=== PATIENT | male | born 1935 | race African-American/Black ===

== ENCOUNTER 2019-11-21 02:51 | Inpatient (IN) | payer MEDICARE, OTHER ==
[~2019-11-21] VITALS: Ht 177.8 cm; Wt 107.5 kg
[2019-11-21] VITALS (18 sets, daily range): BP systolic 95–146; BP diastolic 69–101
[2019-11-21] MEDS ORDERED: LEVOFLOXACIN IVPB ONE (03:00)
[2019-11-21] MEDS ORDERED: cefTRIAXone 1gm/D5W 55ml IVPB ONE ×2 (03:00)
[2019-11-21] MEDS ORDERED: D5W IVPB ONE (03:00)
[2019-11-21] MEDS ORDERED: Vancomycin 1gm vial IVPB ONE (03:07)
[2019-11-21] MEDS ORDERED: Albuterol/Ipratropium 3ml neb ONE ×2 (03:07→05:06)
[2019-11-21] MEDS ORDERED: Albuterol/Ipratropium 3ml neb HHN ONE ×2 (03:07→05:00)
[2019-11-21] MEDS ORDERED: Lidocaine 2% 100mg/5ml Carp ONE (04:18)
[2019-11-21] MEDS ORDERED: Lidocaine 2% 100mg/5ml Carp INJ ONE (04:18)
--- NOTE | 2019-11-21 05:14 | Emergency Room Report ---
History of Present Illness General Source: EMS Present Illness HPI Patient presents with altered mentation. Apparently his oxygen saturation was in the 80s prior to paramedics and starting oxygen. Usually the patient is more responsive. Initially found blood pressure 130 and then the patient had atrial fibrillation with a history of this and the blood pressure apparently dropped. Patient is somewhat tachypneic. Accu-Chek 124. Paramedics do not know what the CODE STATUS is. History of atrial fibrillation. History of dementia. Allergies: Coded Allergies: LISINOPRIL (Verified Allergy, Unknown, 11/21/19) SIMVASTATIN (Verified Allergy, Unknown, 11/21/19) TERAZOSIN (Verified Allergy, Unknown, 11/21/19) Patient History Limited by: medical condition Past Medical History: see triage record Social History Narrative [facility] Reviewed Nursing Documentation: PMH: Agreed; PSxH: Agreed Review of Systems All Other Systems: limited Physical Exam Hypoxic, BP not hypotensive, tachycardia Sp02 EP Interpretation: reviewed, abnormal - Interpreted as low by me General Appearance: lethargic, Chronically Ill Head: normocephalic, atraumatic Eyes: bilateral eye normal inspection, bilateral eye PERRL ENT: moist mucus membranes - Poor dentition Neck: other - Flaccid Respiratory: respiratory distress - Mild, decreased breath sounds, crackles, wheezing Cardiovascular #1: tachycardia, irregularly irregular, edema - Lower extremities Cardiovascular #2: 2+ radial (L) Gastrointestinal: non tender, decreased bowel sounds Genitourinary: other - Patiño present Musculoskeletal: decreased range of motion Neurologic: DTRs symmetric, responsive - Minimally, other - Not speaking Psychiatric: other - Stupor Skin: warm/dry Procedures Critical Care Time Critical Care Time Total Critical Care Time: 60 min bedside evaluation and treatment excludes procedures (EKG, endotracheal intubation). Reason for critical care: Sepsis, respiratory failure, repeat evaluations, sedation Possible complications: hypotension, hypertension, WA, shock, arrhythmias, metabolic acidosis, end organ damage, respiratory failure. Interventions: Breathing treatments, fluid bolus, sepsis treatment, repeat evaluations, determination level of care Course: Patient presented with hypoxia and altered mental status. Immediate sepsis resuscitation and antibiotic orders. X-ray reveals left-sided pneumonia. Breathing treatments instituted. Due to altered mentation BiPAP unavailable. Sepsis reevaluation with improvement however respiratory failure indicated intubation. Discussion with patient level of care. Repeat evaluations of level of sedation. Vital signs improved. Repeat blood gas evaluated. Consultations: nursing staff, EMS, respiratory therapy, admitting physician Performed by: Dr. Guy Tolerated well condition = critical Intubation Intubation : Consent: Verbal - and emergent Intubation Method: orotracheal Tube Size (cm): 7.5 Medications: Etomidate Breath Sounds after Intubation: equal Post Intubation Xray: Yes Attempts: One Patient Tolerated: Well Complications: Other - patient bit lower lip Progress After MAC blade removed, ET tube was being directed and patient bit down on his lip. Medical Decision Making Diagnostic Impression: Primary Impression: Sepsis Qualified Codes: A41.9 - Sepsis, unspecified organism; R65.20 - Severe sepsis without septic shock Additional Impressions: Respiratory failure Qualified Codes: J96.01 - Acute respiratory failure with hypoxia; J96.02 - Acute respiratory failure with hypercapnia Pneumonia Qualified Codes: J18.9 - Pneumonia, unspecified organism Urinary tract infection Qualified Codes: T83.511A - Infection and inflammatory reaction due to indwelling urethral catheter, initial encounter; N39.0 - Urinary tract infection , site not specified Renal failure Qualified Codes: N19 - Unspecified kidney failure ER Course Patient presents with hypoxia and altered level of consciousness. Differential includes pneumonia, sepsis, acute myocardial infarction, electrolyte imbalance amongst others. Evaluation with EKG, chest x-ray and labs. Immediate 30 ml/kg bolus. Patient placed on a hall monitor. EKG with rapid atrial fibrillation and no acute injury rate 108. X-ray with left-sided infiltrate and bilateral effusions. Blood count elevated with left shift. Renal insufficiency. Potassium 6.1. Urinalysis with pyuria. Antibiotics ordered based on urine and CXR. Cap fill good. Still altered ( sepsis re-evaluation). Patient with altered mentation. Improved somewhat with breathing treatment. Unable to treat with BiPAP because of altered mentation. Blood gas reveals mixed acidosis with hypoxia. Intubation indicated. Patient somewhat more responsive. Agrees with intubation. Intubated. Initial lactic acid elevated. Continued hydration. Less work with breathing. Sedated and dose of propofol adjusted. Vent titrated down. ABG on vent improved. Clinically patient improved and admitted to ICU. Laboratory Tests Test 11/21/19 03:40 11/21/19 04:50 11/21/19 07:00 11/21/19 10:00 Arterial Blood pH 7.155 (7.350-7.450) 7.307 (7.350-7.450) 7.388 (7.350-7.450) Arterial Blood Partial Pressure CO2 62.8 mmHg (35.0-45.0) *H 46.5 mmHg (35.0-45.0) H 38.1 mmHg (35.0-45.0) Arterial Blood Partial Pressure O2 62.6 mmHg (75.0-100.0) L 55.0 mmHg (75.0-100.0) L 72.5 mmHg (75.0-100.0) L Arterial Blood HCO3 21.6 mmol/L (22.0-26.0) L 22.7 mmol/L (22.0-26.0) 22.4 mmol/L (22.0-26.0) Arterial Blood Oxygen Saturation 87.0 % (95-100) *L 87.7 % (95-100) *L 93.8 % (95-100) L Arterial Blood Base Excess -7.4 (-2-2) L -3.5 (-2-2) L -2.3 (-2-2) L Shade Test Positive Positive Positive Sodium Level 143 MMOL/L (136-145) Potassium Level 6.1 MMOL/L (3.5-5.1) *H Chloride Level 103 MMOL/L (98-107) Carbon Dioxide Level 21 MMOL/L (21-32) Anion Gap 19 mmol/L (5-15) H Blood Urea Nitrogen 87 mg/dL (7-18) H Creatinine 6.7 MG/DL (0.55-1.30) H Estimated Glomerular Filtration Rate 9.6 mL/min (>60) Glucose Level 128 MG/DL (74-106) H Lactic Acid Level 4.50 mmol/L (0.66-2.22) H Uric Acid 11.6 MG/DL (2.6-7.2) H Calcium Level 9.2 MG/DL (8.5-10.1) Total Bilirubin 0.4 MG/DL (0.2-1.0) Aspartate Amino Transferase (AST) 50 U/L (15-37) H Alanine Aminotransferase (ALT) 26 U/L (12-78) Alkaline Phosphatase 60 U/L (46-116) Total Creatine Kinase 186 U/L (26-308) Troponin I 0.026 ng/mL (0.000-0.056) Pro-B-Type Natriuretic Peptide > 09433 pg/mL (0-125) H Total Protein 8.7 G/DL (6.4-8.2) H Albumin 3.1 G/DL (3.4-5.0) L Globulin 5.6 g/dL Albumin/Globulin Ratio 0.6 (1.0-2.7) L White Blood Count 11.1 K/UL (4.8-10.8) H Red Blood Count 3.67 M/UL (4.70-6.10) L Hemoglobin 10.7 G/DL (14.2-18.0) L Hematocrit 34.0 % (42.0-52.0) L Mean Corpuscular Volume 93 FL (80-99) Mean Corpuscular Hemoglobin 29.2 PG (27.0-31.0) Mean Corpuscular Hemoglobin Concent 32.0 G/DL (32.0-36.0) Red Cell Distribution Width 17.8 % (11.6-14.8) H Platelet Count 346 K/UL (150-450) Mean Platelet Volume FL (6.5-10.1) Neutrophils (%) (Auto) % (45.0-75.0) Lymphocytes (%) (Auto) % (20.0-45.0) Monocytes (%) (Auto) % (1.0-10.0) Eosinophils (%) (Auto) % (0.0-3.0) Basophils (%) (Auto) % (0.0-2.0) Differential Total Cells Counted 100 Neutrophils % (Manual) 85 % (45-75) H Lymphocytes % (Manual) 10 % (20-45) L Monocytes % (Manual) 4 % (1-10) Eosinophils % (Manual) 1 % (0-3) Basophils % (Manual) 0 % (0-2) Band Neutrophils 0 % (0-8) Platelet Estimate Adequate Platelet Morphology Normal Hypochromasia 1+ Anisocytosis 1+ Test 11/21/19 17:10 11/21/19 20:40 Urine Color Pale yellow Urine Appearance Slightly cloudy Urine pH 6 (4.5-8.0) Urine Specific [place] 1.010 (1.005-1.035) Urine Protein 3+ (NEGATIVE) H Urine Glucose (UA) Negative (NEGATIVE) Urine Ketones Negative (NEGATIVE) Urine Blood 4+ (NEGATIVE) H Urine Nitrite Negative (NEGATIVE) Urine Bilirubin Negative (NEGATIVE) Urine Urobilinogen Normal MG/DL (0.0-1.0) Urine Leukocyte Esterase 3+ (NEGATIVE) H Urine RBC 5-10 /HPF (0 - 0) H Urine WBC 20-30 /HPF (0 - 0) H Urine Squamous Epithelial Cells None /LPF (NONE/OCC) Urine Bacteria Moderate /HPF (NONE) H Urine Random Sodium 55 mmol/L (20-110) Lactic Acid Level 0.90 mmol/L (0.4-2.0) EKG Diagnostic Results Rate: tachycardiac Rhythm: other - Atrial fibrillation ST Segments: no acute changes - Nonspecific ST-T wave changes Rhythm Strip Diag. Results EP Interpretation: yes Rhythm: NSR, no PVC's, no ectopy Chest X-Ray Diagnostic Results Chest X-Ray Diagnostic Results #1: Chest X-Ray Ordered: Yes # of Views/Limited/Complete: 1 View Indication: Shortness of Breath EP Interpretation: Yes Interpretation: no pneumothorax, other - effusions, infiltrates Impression: Other Electronically Signed by: Electronically signed by Rafael Guy MD Chest X-Ray Diagnostic Results #2: Chest X-Ray Ordered: Yes # of Views/Limited/Complete: 1 View Indication: Other EP Interpretation: Yes Interpretation: no pneumothorax, other - Dense collapse left middle lobe with infiltrate bilaterally and bilateral effusions -endotracheal tube good position Impression: Other Electronically Signed by: Electronically signed by Rafael Guy MD Last Vital Signs Date Time Temp Pulse Resp B/P (MAP) Pulse Ox O2 Delivery O2 Flow Rate FiO2 11/22/19 03:28 86 18 30 11/22/19 03:00 142/89 (106) 98 11/22/19 00:00 Mechanical Ventilator 11/22/19 00:00 98.5 Status: improved Disposition: ADMITTED INPATIENT Condition: Critical Referrals: NON PHYSICIAN (PCP) Rafael Guy MD Nov 21, 2019 05:14
--- NOTE | 2019-11-21 06:20 | NUR ---
ER Nurse Note: See Downtime form
--- NOTE | 2019-11-21 06:40 | NUR ---
ER Nurse Note: Pt transfered to unit. Stable for transfer. See paper document.
--- NOTE | 2019-11-21 07:00 | NUR ---
NURSE NOTES: Patient came from ER. On ventilator AC 18, 550tv, 50% Fio2, peep of 5. Patient is currently still sedated from intubation and sedation that was given in ER. NSR on the monitor. ETT size 7.5, 25cm at lower lip line , left sided FA 20G PIV and right AC 20 PIV. Patiño catheter noted. According from [employer] patient came into ER with Patiño already in place. Patient is on bilateral soft wrist restraints. Pulses noted. Will continue to monitor.
--- NOTE | 2019-11-21 07:19 | NUR ---
HAND-OFF: Report given to Margarita LYNCH.
--- NOTE | 2019-11-21 08:07 | NUR ---
NURSE NOTES: Dr. Garza called for admission orders to be placed.
[2019-11-21] MEDS ORDERED: Miralax 17gm pkt ORAL PRN (08:15)
[2019-11-21] MEDS ORDERED: Albuterol/Ipratropium 3ml neb HHN PRN (08:15)
--- NOTE | 2019-11-21 08:15 | NUR ---
NURSE NOTES: Dr. Hightower is consulted as safety leader under patient care by Dr. Garza, called to inform of patient needing admission orders, will place orders shortly.
[2019-11-21 08:51] LABS: HEMOGLOBIN 10.7 G/DL (14.2-18.0); MEAN CORPUSCULAR VOLUME 93 FL (80-99); RED BLOOD COUNT 3.67 M/UL (4.70-6.10); WHITE BLOOD COUNT 11.1 K/UL (4.8-10.8)
[2019-11-21 08:52] LABS: PLATELET COUNT 346 K/UL (150-450); RED CELL DISTRIBUTION WIDTH 17.8 % (11.6-14.8)
[2019-11-21] MEDS ORDERED: Pantoprazole Inj IV SCH (09:39)
[2019-11-21 09:53] LABS: ALANINE AMINOTRANSFERASE 26 U/L (12-78); ALBUMIN 3.1 G/DL (3.4-5.0); ALBUMIN/GLOBULIN RATIO 0.6 (1.0-2.7); ALKALINE PHOSPHATASE 60 U/L (46-116); ANION GAP 19 mmol/L (5-15); ASPARTATE AMINO TRANSFERASE 50 U/L (15-37); BILIRUBIN,TOTAL 0.4 MG/DL (0.2-1.0); BLOOD UREA NITROGEN 87 mg/dL (7-18); CALCIUM 9.2 MG/DL (8.5-10.1); CARBON DIOXIDE 21 MMOL/L (21-32); CHLORIDE 103 MMOL/L (98-107); CREATININE 6.7 MG/DL (0.55-1.30); SODIUM 143 MMOL/L (136-145)
[2019-11-21 09:54] LABS: POTASSIUM 6.1 MMOL/L (3.5-5.1)
--- NOTE | 2019-11-21 10:15 | NUR ---
RADIOLOGY DEPT., CHEST X-RAY DONE.P.DYE
[2019-11-21] MEDS: Heparin 5000 units/ml inj SUBQ SCH ×2 (10:25→20:51)
--- NOTE | 2019-11-21 11:52 | NUR ---
NURSE NOTES: Dr. Ellison placed on the case per Dr. Garza for renal consultation, updated on patient condition and chemistry result, ordered to have laxis 40 iVP one dose to be held. will place orders for hydration.
--- NOTE | 2019-11-21 12:25 | Pulmonolgy Critical Care Note ---
Critical Care - Asmt/Plan Problems: (1) Acute hypercapnic respiratory failure (2) Paroxysmal A-fib (3) Anemia, chronic renal failure (4) History of hypertension (5) Alzheimer's dementia (6) Chronic hepatitis (7) BPH (benign prostatic hyperplasia) Respiratory: monitor respiratory rate, adjust FIO2, CXR Cardiac: continue to monitor HR/BP Renal: F/U I&O Infectious Disease: check cultures Gastrointestinal: start feedings Endocrine: monitor blood sugar Hematologic: monitor H/H Neurologic: PRN Ativan Affect: PRN ativan Prophylaxis: Heparin Time Spent (Minutes): 40 Discussed with: nurses, consultants, case finishermanager foreign - Objective Last 24 Hour Vital Signs Date Time Temp Pulse Resp B/P (MAP) Pulse Ox O2 Delivery O2 Flow Rate FiO2 11/21/19 11:32 Mechanical Ventilator 11/21/19 11:00 85 18 132/85 (101) 96 11/21/19 10:00 86 18 112/77 (89) 98 11/21/19 09:30 104 19 100 11/21/19 09:00 94 18 141/99 (113) 96 11/21/19 08:00 97.6 80 18 130/88 (102) 98 11/21/19 08:00 30 11/21/19 07:29 Mechanical Ventilator 11/21/19 07:20 80 11/21/19 06:56 98.0 85 20 97/69 (78) 94 11/21/19 06:45 88 19 100 11/21/19 06:40 97.7 90 18 111/78 100 Mechanical Ventilator 11/21/19 06:20 90 18 11/21/19 06:20 97.7 90 18 111/78 100 Mechanical Ventilator 11/21/19 05:05 101 19 100 Mechanical Ventilator 100 100 20 30 11/21/19 04:16 90 18 100 Status: sedated Condition: critical HEENT: atraumatic Neck: full ROM Lungs: rales, rhonchi Heart: HR/BP stable Abdomen: soft Extremities: no C/C/E Critical Care - Subjective ROS Limited/Unobtainable: Yes Interval Events: 83 year old male with hx of dementia, chronic renal insufficiency, paroxysmal afib, intermediate resident, brought in with CC of hypoxemia and ALOC. Pt was intubated in ER and transferred to ICU. He didn't have fevers and his secretions are clear. As of now, it is unknown what caused respiratory depression and failure. FI02: 100 Vent Support Breath Rate: 16 Vent Support Mode: AC Vent Tidal Volume: 550 Sputum Amount: Moderate PEEP: 5.0 PIP: 26 I&O: Intake and Output 11/20/19 11/21/19 19:00 07:00 Intake Total 2600 ml Output Total 100 ml Balance 2500 ml Intake Oral 2600 ml Output Urine Total 100 ml CXR: no CHF ET-Tube: 7.5 ET Position: 25 Labs: Laboratory Tests Test 11/21/19 03:40 11/21/19 04:50 11/21/19 07:00 11/21/19 10:00 Arterial Blood pH 7.155 (7.350-7.450) 7.307 (7.350-7.450) 7.388 (7.350-7.450) Arterial Blood Partial Pressure CO2 62.8 mmHg (35.0-45.0) *H 46.5 mmHg (35.0-45.0) H 38.1 mmHg (35.0-45.0) Arterial Blood Partial Pressure O2 62.6 mmHg (75.0-100.0) L 55.0 mmHg (75.0-100.0) L 72.5 mmHg (75.0-100.0) L Arterial Blood HCO3 21.6 mmol/L (22.0-26.0) L 22.7 mmol/L (22.0-26.0) 22.4 mmol/L (22.0-26.0) Arterial Blood Oxygen Saturation 87.0 % (95-100) *L 87.7 % (95-100) *L 93.8 % (95-100) L Arterial Blood Base Excess -7.4 (-2-2) L -3.5 (-2-2) L -2.3 (-2-2) L Shade Test Positive Positive Positive Sodium Level 143 MMOL/L (136-145) Potassium Level 6.1 MMOL/L (3.5-5.1) *H Chloride Level 103 MMOL/L (98-107) Carbon Dioxide Level 21 MMOL/L (21-32) Anion Gap 19 mmol/L (5-15) H Blood Urea Nitrogen 87 mg/dL (7-18) H Creatinine 6.7 MG/DL (0.55-1.30) H Estimat Glomerular Filtration Rate 9.6 mL/min (>60) Glucose Level 128 MG/DL (74-106) H Lactic Acid Level 4.50 mmol/L (0.66-2.22) H Calcium Level 9.2 MG/DL (8.5-10.1) Total Bilirubin 0.4 MG/DL (0.2-1.0) Aspartate Amino Transf (AST/SGOT) 50 U/L (15-37) H Alanine Aminotransferase (ALT/SGPT) 26 U/L (12-78) Alkaline Phosphatase 60 U/L (46-116) Troponin I 0.026 ng/mL (0.000-0.056) Pro-B-Type Natriuretic Peptide > 40601 pg/mL (0-125) H Total Protein 8.7 G/DL (6.4-8.2) H Albumin 3.1 G/DL (3.4-5.0) L Globulin 5.6 g/dL Albumin/Globulin Ratio 0.6 (1.0-2.7) L White Blood Count 11.1 K/UL (4.8-10.8) H Red Blood Count 3.67 M/UL (4.70-6.10) L Hemoglobin 10.7 G/DL (14.2-18.0) L Hematocrit 34.0 % (42.0-52.0) L Mean Corpuscular Volume 93 FL (80-99) Mean Corpuscular Hemoglobin 29.2 PG (27.0-31.0) Mean Corpuscular Hemoglobin Concent 32.0 G/DL (32.0-36.0) Red Cell Distribution Width 17.8 % (11.6-14.8) H Platelet Count 346 K/UL (150-450) Mean Platelet Volume FL (6.5-10.1) Neutrophils (%) (Auto) % (45.0-75.0) Lymphocytes (%) (Auto) % (20.0-45.0) Monocytes (%) (Auto) % (1.0-10.0) Eosinophils (%) (Auto) % (0.0-3.0) Basophils (%) (Auto) % (0.0-2.0) Differential Total Cells Counted 100 Neutrophils % (Manual) 85 % (45-75) H Lymphocytes % (Manual) 10 % (20-45) L Monocytes % (Manual) 4 % (1-10) Eosinophils % (Manual) 1 % (0-3) Basophils % (Manual) 0 % (0-2) Band Neutrophils 0 % (0-8) Platelet Estimate Adequate Platelet Morphology Normal Hypochromasia 1+ Anisocytosis 1+ Susannah Hightower MD Nov 21, 2019 12:25
[2019-11-21] MEDS: LORazepam Inj 2mg/ml 1ml IV PRN (12:36)
--- NOTE | 2019-11-21 12:40 | Diagnostic Imaging Report ---
Indication: Dyspnea Comparison: None A single view chest radiograph was obtained. Findings: Interstitial edema and prominent vascularity demonstrated with cardiomegaly. Endotracheal tube is in good position several centimeters above the stephania. Bones are osteopenic. IMPRESSION: CHF
--- NOTE | 2019-11-21 12:45 | NUR ---
NURSE NOTES: Dr. Hightower Addendum: 11/21/19 at 1653 by Rafael Garcia RN updated at the bedside regarding patient admission condition, patient intubated from ER after having SOB and hypotension. will review patient laboratory labs and place orders appropriately.
--- NOTE | 2019-11-21 12:53 | Consultation ---
Consult Note Consult Note I was asked to evaluate the patient at the request of Dr. silver for renal failure and hyperkalemia Patient seen in room [facility] ICU Examined Discussed with SYED Hall Records were reviewed Patient currently intubated on fentanyl drip and non-historian Urgency room note Patient presents with altered mentation. Apparently his oxygen saturation was in the 80s prior to paramedics and starting oxygen. Usually the patient is more responsive. Initially found blood pressure 130 and then the patient had atrial fibrillation with a history of this and the blood pressure apparently dropped. Patient is somewhat tachypneic. Accu-Chek 124. Paramedics do not know what the CODE STATUS is. Allergies: LISINOPRIL (Verified Allergy, Unknown, 11/21/19) SIMVASTATIN (Verified Allergy, Unknown, 11/21/19) TERAZOSIN (Verified Allergy, Unknown, 11/21/19) Assessment/Plan Acute renal failure Possible underlying chronic kidney failure Hyperkalemia Anemia other conditions: (1) Acute hypercapnic respiratory failure (2) Paroxysmal A-fib (3) Anemia, chronic renal failure (4) History of hypertension (5) Alzheimer's dementia (6) Chronic hepatitis (7) BPH (benign prostatic hyperplasia) Plan Slow hydration Monitor intake and output Monitor renal parameters Avoid nephrotoxic's Kidney ultrasound 2D echocardiogram Anemia work-up Per orders Reynold Ellison MD Nov 21, 2019 12:53
[2019-11-21] MEDS ORDERED: Miralax 17gm pkt NG PRN (13:00)
[2019-11-21] MEDS: Docusate 100mg/10ml Liq NG SCH ×2 (13:00→18:03)
[2019-11-21] MEDS: D5 1/2NS 1,000 ML IV SCH (13:14)
--- NOTE | 2019-11-21 13:45 | NUR ---
NURSE NOTES: Wound care provided at the bedside with [facility] care nurse. noted patient to have several stage 2 open wound on the sacral region and a DTI on the Left upper buttocks with feeling on soft and boggy. DTi skin is sealed with no discoloration noted. see wound care picture.
--- NOTE | 2019-11-21 14:35 | NUR ---
NURSE NOTES: Bed mattress p200 placed under the patient to prevent further skin breakdown. patient tolerated well mattress placement. will continue to monitor.
[2019-11-21 15:03] LABS: CREATINE KINASE 186 U/L (26-308)
--- NOTE | 2019-11-21 15:26 | Diagnostic Imaging Report ---
Indication:Elevated Bun and Creatinine. Technique: Grayscale and duplex Doppler imaging of the kidneys performed. Comparison: None Findings: The kidneys are echogenic. There are multiple cysts.. The right kidney measures 13 cm. in length. The left kidney measures 9.4 cm. in length. The IVC is patent. Urinary bladder is unremarkable. Patiño catheter noted. Incidental liver cysts noted. IMPRESSION: Medical renal disease. Multiple renal cysts
--- NOTE | 2019-11-21 15:35 | NUR ---
CASE MANAGEMENT:REVIEW 83 YR OLD MALE BIBA FROM [facility] CC; SOB. SATS~80%. AMS SI: SEPSIS. RESPIRATORY FAILURE. PNA 97.7 90 18 111/78 80% ON RA PH-7.155 PCO2+62.8 PO2+62.6 HCO3-21.6 O2 SATS 87% IS: INTUBATED IN ER IV LASIX STAT : TO ICU
--- NOTE | 2019-11-21 15:42 | NUR ---
NURSE NOTES: OG -tube placement through mouth at 65cm at the lip. verification with air and auscultation over the left upper quadrant with girggling sound present. awaiting for abdominal X-ray to confirm placement.
--- NOTE | 2019-11-21 15:47 | NUR ---
NURSE NOTES:WOUND CARE NOTES:Pt presented on admission with multiple pressure injuries. DTPI noted to L sacrum. Base of injury indurated,black with surrounding maroon discoloration.(L)5.5cm x (W)2.4cm.scattered areas of shearing with non-blanching erythema noted to perianal,R and L gluteal cheeks. Partial thickness pressure injury L gluteal cheek.(L)0.5cm x (W)3.3cm. Base of wound is moist and viable with surrounding non-blanching erythema with additional shearing. Both heels are firm ,dry and easily blanchable. Tx.Plan:Apply Moisture Barrier Paste to Sacrum. Cover with Optifoam drsg. Change every 3 days and prn. Apply Moisture Barrier Paste to L buttocks. Cover with Optifoam drsg.Change every 3 days and prn. Apply Moisture Barrier Paste to sheared areas R and L buttocks and perianal areas with each Incontinence care. Apply Cavilon Skin Barrier to both heels. Cover each heel with Optifoam drsg. Change every 7 days and prn. Reposition at least every 2hours or as tolerated. Off-load heels with Pillow.
--- NOTE | 2019-11-21 16:00 | NUR ---
NURSE NOTES: Patient placed on restraints for repeatedly reaching towards RT-tube and non compliance. remains on mechanical ventilator saturating at 97-99% with no distress noted. D5 1/2 NS remains running at 75ml/hr.
--- NOTE | 2019-11-21 16:08 | NUR ---
CLOTH SPREADER NOTE Pt was admitted to ICU on 11/21/2019. Pt is currently on ventilator. Pt's daughter, Paul Bullock [phone] was at pt's bedside. SW spoke w/ Paul and obtained information. Per Paul, pt currently resides at [address] [address]. Pt had 3 daughters and one . Per Paul, pt was at [facility] about two weeks ago. Pt did not disclose any information in regards to POA/AD but pt stated to Paul that "everything is taken care of." Thus, AD/POA status is unknown. Pt briefly expressed Paul that he wishes DNR. SW informed pt currently has full code. Paul and pt's eldest daughter Amy Bolanos [phone] are willing to discuss prognosis w/ MD and address code status if needed. Amy Bolanos [phone] is the person of contact and two daughters will be decision makers. Per Paul, pt can return [facility] upon DC. Signed: 11/21/19 at 1621 by SRINIVASAN CADE <Co-Signature Required>
--- NOTE | 2019-11-21 16:19 | Diagnostic Imaging Report ---
Indication: Dyspnea Comparison: 11/21/2019 A single view chest radiograph was obtained. Findings: Endotracheal tube is in good position just above the stephania. There is interstitial edema. There are probable bilateral pleural effusions. There is a platelike atelectasis in the left upper lobe. IMPRESSION: Moderate interstitial edema. Bilateral pleural effusions.
--- NOTE | 2019-11-21 16:22 | Diagnostic Imaging Report ---
Indication: Dyspnea Comparison: None A single view chest radiograph was obtained. Findings: There is evidence of interstitial edema. There is a hazy opacity over the left hemithorax which may be a pleural effusion. The heart is probably enlarged. IMPRESSION: CHF. Suspected left pleural effusion
--- NOTE | 2019-11-21 16:34 | Diagnostic Imaging Report ---
Indication: NG tube placement Comparison: None Single view of the abdomen obtained Findings: NG tube is in good position with the proximal and distal ports in the stomach lumen. IMPRESSION: Limited study showing good position of the nasogastric tube
--- NOTE | 2019-11-21 17:20 | NUR ---
NURSE NOTES: Tube feeding started at 10ml/hr after confirmation with Abdominal X-ray. OG-tube is at 65cm at the upper lip.
[2019-11-21 17:33] LABS: APPEARANCE,URINE SLIGHTLY CLOUDY; BILIRUBIN, URINE NEGATIVE (NEGATIVE); COLOR,URINE PALE YELLOW; GLUCOSE, URINE (UA) NEGATIVE (NEGATIVE); KETONES,URINE NEGATIVE (NEGATIVE); LEUKOCYTE ESTERASE ,URINE 3+ (NEGATIVE); NITRITE,URINE NEGATIVE (NEGATIVE); PH,URINE 6 (4.5-8.0); PROTEIN,URINE 3+ (NEGATIVE); UROBILINOGEN,URINE NORMAL MG/DL (0.0-1.0)
--- NOTE | 2019-11-21 17:46 | History & Physical ---
History and Physical History & Physicial Dictated for Int Med-DR Garza no. [id number] Abisai Zamarripa MD Nov 21, 2019 17:46
--- NOTE | 2019-11-21 19:15 | History and Physical Report ---
DATE OF ADMISSION: 11/21/2019 CHIEF COMPLAINT: The patient is an 83-year-old male, who presents with a chief complaint of altered mental status. HISTORY OF PRESENT ILLNESS: The patient is a resident of [facility]. According to staff at [facility], the patient was more altered than usual. The pulse oximetry was in the 80s on room air. The patient was transported to [place] emergency room. The patient was found to be in acute respiratory failure. The patient was emergently intubated in the emergency room. The patient is admitted with respiratory failure and probable sepsis. PAST MEDICAL HISTORY: Significant for: 1. Hypertension. 2. Alzheimer's dementia. 3. Benign prostatic hypertrophy. PAST SURGICAL HISTORY: Unknown. CURRENT MEDICATIONS: Unknown. ALLERGIES: To lisinopril, simvastatin, and terazosin. SOCIAL HISTORY: Unknown. REVIEW OF SYSTEMS: Unable to assess secondary to the patient's mental status. PHYSICAL EXAMINATION: VITAL SIGNS: Temperature 98.0, respirations 20, pulse 85, blood pressure 97/69. GENERAL: The patient is well-developed, well-nourished male, who is intubated and sedated in the intensive care unit. HEENT: Eyes, pupils are equal and responsive to light and accommodation. Extraocular movements are intact. NECK: Supple without lymphadenopathy. CHEST: Bilateral expiratory air sounds, otherwise clear to auscultation without rales. CARDIOVASCULAR: Regular rhythm and rate. S1 and S2 normal without murmurs, rubs, or gallops. ABDOMEN: Soft, nontender, and nondistended. Positive bowel sounds. No evidence of hepatosplenomegaly. Currently, no rebound or guarding noted. EXTREMITIES: Negative for clubbing, cyanosis, or edema. RECTAL/GENITAL: Not performed. NEUROLOGIC: Cranial nerves II through XII are grossly intact without focal deficits. Motor strength is 5/5 bilaterally. Deep tendon reflexes are 2+ plantar. DIAGNOSTIC DATA: A chest x-ray was reported as interstitial edema consistent with congestive heart failure. LABORATORY STUDIES: WBC 11.1, hemoglobin 10.7, hematocrit 34.0, platelets 346,000. Sodium 143, potassium 6.1, chloride 103, CO2 21, BUN 87, creatinine 6.7, glucose 128. Lactic acid 6.50. BNP elevated, greater than 35,000. Troponin 0.026. ASSESSMENT: This is an 83-year-old male. 1. Respiratory failure. 2. Congestive heart failure. 3. Atrial fibrillation. 4. Altered mental status. 5. Urinary tract infection. 6. Renal failure. 7. Hypertension. 8. Alzheimer's dementia. 9. Benign prostatic hypertrophy. TREATMENT: 1. Congestive heart failure. A Cardiology consultation has been obtained with Dr. Vasu Zaidi. We will follow recommendations of Cardiology. The patient is currently receiving intravenous Lasix. 2. Respiratory failure. A Pulmonary consultation has been obtained with Dr. Susannah Hightower. The patient is currently intubated in the intensive care unit. We will follow recommendations of Pulmonary. 3. Atrial fibrillation as above. A Cardiology consultation has been obtained with Dr. Vasu Zaidi. 4. Renal failure. A Nephrology consultation has been obtained with Dr. Ellison. We will follow recommendations of Nephrology. 5. Hypertension. The patient is currently hypotensive in the intensive care unit. 6. Alzheimer's dementia. 7. Benign prostatic hypertrophy. Abisai Zamarripa M.D. DR: BRITTANY JOB#: [id number] CC:
--- NOTE | 2019-11-21 19:25 | NUR ---
HAND-OFF: Report given to SYED Mario. Patient remains on restraint for reaching towards Et-tube. arms are warm with peripheral pulses present distally. running fluids at 75 ml/hr with d5 1/2ns through left IV site.
--- NOTE | 2019-11-21 19:28 | NUR ---
RESPIRATORY NOTE: PT RECEIVED STABLE ON CURRENT VENT ORDERS: AC/VC 16, 550, 30%, +0. ALARMS ARE ON AND AUDIBLE. VENT CIRCUIT AND SX TUBBING ARE SECURE AND OUT OF THE WAY. NO S/S OF RESPIRATORY DISTRESS NOTED AT THIS TIME. WILL CONTINUE TO CLOSELY MONITOR.
--- NOTE | 2019-11-21 19:30 | NUR ---
NURSE NOTES: Received pt in no distress; asleep but open eyes to name and pain. Follow commands, non verbal secondary to ETT. ETT # 7.5 placed over right lip at 25cm. Secreitons small, white, chest sounds with scattered rhonchi. Noted vent settings of AC18 TV550 fiO2.30 No peep, Saturating 98-100%. Afebrile, Afib on the scope, rate 106. BP stable. OGT in place at 65cm. TF of Jevity 1.2 infuses a t 15ml/h with 0 residuals. Abdomen soft, passing flatus. FC intact, urine cloudy, foul odor. PIV site on LFA intact/patent; IVF of D51/2NS infuses at 75ml/h. HL on RAC intact. Wound dressing on sacral are dry and intact. Will continue to monitor; gradually increase TF to goal of 30 if tolerated.
--- NOTE | 2019-11-21 20:00 | NUR ---
NURSE NOTES: DR Hicks here and saw pt. No orders. Bilat soft wrist restraints maintained as pt tends to pull device. Adrien SCD's applied
--- NOTE | 2019-11-21 20:29 | Cardiology Progress Note ---
Assessment/Plan Assessment/Plan [id number] heart rate control may need dialysis off eliquis until decision regarding dialysis catheter finalized Objective Last 24 Hour Vital Signs Date Time Temp Pulse Resp B/P (MAP) Pulse Ox O2 Delivery O2 Flow Rate FiO2 11/21/19 20:09 106 11/21/19 20:00 106 16 141/93 (109) 98 11/21/19 20:00 30 11/21/19 20:00 Mechanical Ventilator 11/21/19 19:23 98 22 30 11/21/19 19:00 83 18 146/96 (113) 99 11/21/19 18:00 90 18 145/101 (116) 98 11/21/19 17:15 86 18 100 11/21/19 17:00 84 18 133/88 (103) 98 11/21/19 16:00 30 11/21/19 16:00 Mechanical Ventilator 11/21/19 16:00 98 11/21/19 16:00 98.5 97 18 145/99 (114) 97 11/21/19 15:00 94 19 144/82 (102) 98 11/21/19 14:52 82 18 100 11/21/19 14:00 92 18 95/77 (83) 99 11/21/19 13:14 81 18 100 11/21/19 13:00 95 18 131/101 (111) 97 11/21/19 12:00 98.6 98 18 144/97 (113) 98 11/21/19 12:00 89 11/21/19 12:00 30 11/21/19 11:32 Mechanical Ventilator 11/21/19 11:09 89 18 100 11/21/19 11:00 85 18 132/85 (101) 96 11/21/19 10:00 86 18 112/77 (89) 98 11/21/19 09:30 104 19 100 11/21/19 09:00 94 18 141/99 (113) 96 11/21/19 08:00 97.6 80 18 130/88 (102) 98 11/21/19 08:00 30 11/21/19 07:29 Mechanical Ventilator 11/21/19 07:20 80 11/21/19 06:56 98.0 85 20 97/69 (78) 94 11/21/19 06:45 88 19 100 11/21/19 06:40 97.7 90 18 111/78 100 Mechanical Ventilator 11/21/19 06:20 90 18 11/21/19 06:20 97.7 90 18 111/78 100 Mechanical Ventilator 11/21/19 05:05 101 19 100 Mechanical Ventilator 100 100 20 30 11/21/19 04:16 90 18 100 Intake and Output 11/20/19 11/21/19 19:00 07:00 Intake Total 2600 ml Output Total 100 ml Balance 2500 ml Intake Oral 2600 ml Output Urine Total 100 ml Laboratory Tests Test 11/21/19 03:40 11/21/19 04:50 11/21/19 07:00 11/21/19 10:00 Arterial Blood pH 7.155 (7.350-7.450) 7.307 (7.350-7.450) 7.388 (7.350-7.450) Arterial Blood Partial Pressure CO2 62.8 mmHg (35.0-45.0) *H 46.5 mmHg (35.0-45.0) H 38.1 mmHg (35.0-45.0) Arterial Blood Partial Pressure O2 62.6 mmHg (75.0-100.0) L 55.0 mmHg (75.0-100.0) L 72.5 mmHg (75.0-100.0) L Arterial Blood HCO3 21.6 mmol/L (22.0-26.0) L 22.7 mmol/L (22.0-26.0) 22.4 mmol/L (22.0-26.0) Arterial Blood Oxygen Saturation 87.0 % (95-100) *L 87.7 % (95-100) *L 93.8 % (95-100) L Arterial Blood Base Excess -7.4 (-2-2) L -3.5 (-2-2) L -2.3 (-2-2) L Shade Test Positive Positive Positive Sodium Level 143 MMOL/L (136-145) Potassium Level 6.1 MMOL/L (3.5-5.1) *H Chloride Level 103 MMOL/L (98-107) Carbon Dioxide Level 21 MMOL/L (21-32) Anion Gap 19 mmol/L (5-15) H Blood Urea Nitrogen 87 mg/dL (7-18) H Creatinine 6.7 MG/DL (0.55-1.30) H Estimat Glomerular Filtration Rate 9.6 mL/min (>60) Glucose Level 128 MG/DL (74-106) H Lactic Acid Level 4.50 mmol/L (0.66-2.22) H Uric Acid 11.6 MG/DL (2.6-7.2) H Calcium Level 9.2 MG/DL (8.5-10.1) Total Bilirubin 0.4 MG/DL (0.2-1.0) Aspartate Amino Transf (AST/SGOT) 50 U/L (15-37) H Alanine Aminotransferase (ALT/SGPT) 26 U/L (12-78) Alkaline Phosphatase 60 U/L (46-116) Total Creatine Kinase 186 U/L (26-308) Troponin I 0.026 ng/mL (0.000-0.056) Pro-B-Type Natriuretic Peptide > 89023 pg/mL (0-125) H Total Protein 8.7 G/DL (6.4-8.2) H Albumin 3.1 G/DL (3.4-5.0) L Globulin 5.6 g/dL Albumin/Globulin Ratio 0.6 (1.0-2.7) L White Blood Count 11.1 K/UL (4.8-10.8) H Red Blood Count 3.67 M/UL (4.70-6.10) L Hemoglobin 10.7 G/DL (14.2-18.0) L Hematocrit 34.0 % (42.0-52.0) L Mean Corpuscular Volume 93 FL (80-99) Mean Corpuscular Hemoglobin 29.2 PG (27.0-31.0) Mean Corpuscular Hemoglobin Concent 32.0 G/DL (32.0-36.0) Red Cell Distribution Width 17.8 % (11.6-14.8) H Platelet Count 346 K/UL (150-450) Mean Platelet Volume FL (6.5-10.1) Neutrophils (%) (Auto) % (45.0-75.0) Lymphocytes (%) (Auto) % (20.0-45.0) Monocytes (%) (Auto) % (1.0-10.0) Eosinophils (%) (Auto) % (0.0-3.0) Basophils (%) (Auto) % (0.0-2.0) Differential Total Cells Counted 100 Neutrophils % (Manual) 85 % (45-75) H Lymphocytes % (Manual) 10 % (20-45) L Monocytes % (Manual) 4 % (1-10) Eosinophils % (Manual) 1 % (0-3) Basophils % (Manual) 0 % (0-2) Band Neutrophils 0 % (0-8) Platelet Estimate Adequate Platelet Morphology Normal Hypochromasia 1+ Anisocytosis 1+ Test 11/21/19 17:10 Urine Color Pale yellow Urine Appearance Slightly cloudy Urine pH 6 (4.5-8.0) Urine Specific [place] 1.010 (1.005-1.035) Urine Protein 3+ (NEGATIVE) H Urine Glucose (UA) Negative (NEGATIVE) Urine Ketones Negative (NEGATIVE) Urine Blood 4+ (NEGATIVE) H Urine Nitrite Negative (NEGATIVE) Urine Bilirubin Negative (NEGATIVE) Urine Urobilinogen Normal MG/DL (0.0-1.0) Urine Leukocyte Esterase 3+ (NEGATIVE) H Urine RBC 5-10 /HPF (0 - 0) H Urine WBC 20-30 /HPF (0 - 0) H Urine Squamous Epithelial Cells None /LPF (NONE/OCC) Urine Bacteria Moderate /HPF (NONE) H Urine Random Sodium 55 mmol/L (20-110) Vasu Zaidi MD Nov 21, 2019 20:29
--- NOTE | 2019-11-21 20:30 | NUR ---
NURSE NOTES: Dr Zaidi here saw pt and ordered to start Metoprolol 25mg tab via OGT.
[2019-11-21] MEDS: Pantoprazole Inj IV SCH (20:49)
--- NOTE | 2019-11-21 21:57 | Infectious Diseases Prog Note ---
Subjective Allergies: Coded Allergies: LISINOPRIL (Verified Allergy, Unknown, 11/21/19) SIMVASTATIN (Verified Allergy, Unknown, 11/21/19) TERAZOSIN (Verified Allergy, Unknown, 11/21/19) Objective Vital Signs Last 24 Hour Vital Signs Date Time Temp Pulse Resp B/P (MAP) Pulse Ox O2 Delivery O2 Flow Rate FiO2 11/21/19 21:00 104 19 142/95 (111) 98 11/21/19 20:50 110 141/93 11/21/19 20:09 106 11/21/19 20:00 106 16 141/93 (109) 98 11/21/19 20:00 30 11/21/19 20:00 Mechanical Ventilator 11/21/19 19:23 98 22 30 11/21/19 19:00 83 18 146/96 (113) 99 11/21/19 18:00 90 18 145/101 (116) 98 11/21/19 17:15 86 18 100 11/21/19 17:00 84 18 133/88 (103) 98 11/21/19 16:00 30 11/21/19 16:00 Mechanical Ventilator 11/21/19 16:00 98 11/21/19 16:00 98.5 97 18 145/99 (114) 97 11/21/19 15:00 94 19 144/82 (102) 98 11/21/19 14:52 82 18 100 11/21/19 14:00 92 18 95/77 (83) 99 11/21/19 13:14 81 18 100 11/21/19 13:00 95 18 131/101 (111) 97 11/21/19 12:00 98.6 98 18 144/97 (113) 98 11/21/19 12:00 89 11/21/19 12:00 30 11/21/19 11:32 Mechanical Ventilator 11/21/19 11:09 89 18 100 11/21/19 11:00 85 18 132/85 (101) 96 11/21/19 10:00 86 18 112/77 (89) 98 11/21/19 09:30 104 19 100 11/21/19 09:00 94 18 141/99 (113) 96 11/21/19 08:00 97.6 80 18 130/88 (102) 98 11/21/19 08:00 30 3/18/20 07:29 Mechanical Ventilator 11/21/19 07:20 80 11/21/19 06:56 98.0 85 20 97/69 (78) 94 11/21/19 06:45 88 19 100 11/21/19 06:40 97.7 90 18 111/78 100 Mechanical Ventilator 11/21/19 06:20 90 18 11/21/19 06:20 97.7 90 18 111/78 100 Mechanical Ventilator 11/21/19 05:05 101 19 100 Mechanical Ventilator 100 100 20 30 11/21/19 04:16 90 18 100 Height (Feet): 5 Height (Inches): 10.00 Weight (Pounds): 199 Laboratory Tests Test 11/21/19 03:40 11/21/19 04:50 11/21/19 07:00 11/21/19 10:00 Arterial Blood pH 7.155 (7.350-7.450) 7.307 (7.350-7.450) 7.388 (7.350-7.450) Arterial Blood Partial Pressure CO2 62.8 mmHg (35.0-45.0) *H 46.5 mmHg (35.0-45.0) H 38.1 mmHg (35.0-45.0) Arterial Blood Partial Pressure O2 62.6 mmHg (75.0-100.0) L 55.0 mmHg (75.0-100.0) L 72.5 mmHg (75.0-100.0) L Arterial Blood HCO3 21.6 mmol/L (22.0-26.0) L 22.7 mmol/L (22.0-26.0) 22.4 mmol/L (22.0-26.0) Arterial Blood Oxygen Saturation 87.0 % (95-100) *L 87.7 % (95-100) *L 93.8 % (95-100) L Arterial Blood Base Excess -7.4 (-2-2) L -3.5 (-2-2) L -2.3 (-2-2) L Shade Test Positive Positive Positive Sodium Level 143 MMOL/L (136-145) Potassium Level 6.1 MMOL/L (3.5-5.1) *H Chloride Level 103 MMOL/L (98-107) Carbon Dioxide Level 21 MMOL/L (21-32) Anion Gap 19 mmol/L (5-15) H Blood Urea Nitrogen 87 mg/dL (7-18) H Creatinine 6.7 MG/DL (0.55-1.30) H Estimat Glomerular Filtration Rate 9.6 mL/min (>60) Glucose Level 128 MG/DL (74-106) H Lactic Acid Level 4.50 mmol/L (0.66-2.22) H Uric Acid 11.6 MG/DL (2.6-7.2) H Calcium Level 9.2 MG/DL (8.5-10.1) Total Bilirubin 0.4 MG/DL (0.2-1.0) Aspartate Amino Transf (AST/SGOT) 50 U/L (15-37) H Alanine Aminotransferase (ALT/SGPT) 26 U/L (12-78) Alkaline Phosphatase 60 U/L (46-116) Total Creatine Kinase 186 U/L (26-308) Troponin I 0.026 ng/mL (0.000-0.056) Pro-B-Type Natriuretic Peptide > 44132 pg/mL (0-125) H Total Protein 8.7 G/DL (6.4-8.2) H Albumin 3.1 G/DL (3.4-5.0) L Globulin 5.6 g/dL Albumin/Globulin Ratio 0.6 (1.0-2.7) L White Blood Count 11.1 K/UL (4.8-10.8) H Red Blood Count 3.67 M/UL (4.70-6.10) L Hemoglobin 10.7 G/DL (14.2-18.0) L Hematocrit 34.0 % (42.0-52.0) L Mean Corpuscular Volume 93 FL (80-99) Mean Corpuscular Hemoglobin 29.2 PG (27.0-31.0) Mean Corpuscular Hemoglobin Concent 32.0 G/DL (32.0-36.0) Red Cell Distribution Width 17.8 % (11.6-14.8) H Platelet Count 346 K/UL (150-450) Mean Platelet Volume FL (6.5-10.1) Neutrophils (%) (Auto) % (45.0-75.0) Lymphocytes (%) (Auto) % (20.0-45.0) Monocytes (%) (Auto) % (1.0-10.0) Eosinophils (%) (Auto) % (0.0-3.0) Basophils (%) (Auto) % (0.0-2.0) Differential Total Cells Counted 100 Neutrophils % (Manual) 85 % (45-75) H Lymphocytes % (Manual) 10 % (20-45) L Monocytes % (Manual) 4 % (1-10) Eosinophils % (Manual) 1 % (0-3) Basophils % (Manual) 0 % (0-2) Band Neutrophils 0 % (0-8) Platelet Estimate Adequate Platelet Morphology Normal Hypochromasia 1+ Anisocytosis 1+ Test 11/21/19 17:10 11/21/19 20:40 Urine Color Pale yellow Urine Appearance Slightly cloudy Urine pH 6 (4.5-8.0) Urine Specific [place] 1.010 (1.005-1.035) Urine Protein 3+ (NEGATIVE) H Urine Glucose (UA) Negative (NEGATIVE) Urine Ketones Negative (NEGATIVE) Urine Blood 4+ (NEGATIVE) H Urine Nitrite Negative (NEGATIVE) Urine Bilirubin Negative (NEGATIVE) Urine Urobilinogen Normal MG/DL (0.0-1.0) Urine Leukocyte Esterase 3+ (NEGATIVE) H Urine RBC 5-10 /HPF (0 - 0) H Urine WBC 20-30 /HPF (0 - 0) H Urine Squamous Epithelial Cells None /LPF (NONE/OCC) Urine Bacteria Moderate /HPF (NONE) H Urine Random Sodium 55 mmol/L (20-110) Lactic Acid Level 0.90 mmol/L (0.4-2.0) Current Medications Medications (Trade) Dose Ordered Sig/Cyndi Route PRN Reason Start Time Stop Time Status Last Admin Dose Admin Acetaminophen (Tylenol) 650 mg Q4H PRN NG Fever 11/21/19 13:00 12/21/19 08:14 Albuterol/ Ipratropium (Albuterol/ Ipratropium) 3 ml Q4H PRN HHN Shortness of Breath 11/21/19 08:15 11/26/19 08:14 Dextrose (Dextrose 50%) 25 ml Q30M PRN IV Hypoglycemia 11/21/19 08:15 02/19/20 08:14 Dextrose (Dextrose 50%) 50 ml Q30M PRN IV Hypoglycemia 11/21/19 08:15 02/19/20 08:14 Dextrose/Sodium Chloride 1,000 ml @ 75 mls/hr [id number] IV 11/21/19 13:00 12/21/19 12:59 11/21/19 13:14 Docusate Sodium (Colace) 100 mg THREE TIMES A DAY NG 11/21/19 13:00 12/21/19 12:59 11/21/19 18:03 Heparin Sodium (Porcine) (Heparin 5000 units/ml) 5,000 units EVERY 12 HOURS SUBQ 11/21/19 09:39 01/05/20 09:38 11/21/19 20:51 Lorazepam (Ativan 2mg/ml 1ml) 2 mg Q4H PRN IV For Anxiety 11/21/19 08:15 11/28/19 08:14 11/21/19 12:36 Metoprolol Tartrate (Lopressor) 25 mg Q12HR ORAL 11/21/19 21:00 02/19/20 20:59 11/21/19 20:50 Morphine Sulfate (Morphine Sulfate) 4 mg Q4H PRN IVP For Pain 11/21/19 08:15 11/28/19 08:14 Ondansetron HCl (Zofran) 4 mg Q6H PRN IVP Nausea & Vomiting 11/21/19 08:15 12/21/19 08:14 Pantoprazole (Protonix) 40 mg Q12HR IV 11/21/19 21:00 12/21/19 09:38 11/21/19 20:49 Polyethylene Glycol (Miralax) 17 gm DAILYPRN PRN NG Constipation 11/21/19 13:00 12/21/19 08:14 Temazepam (Restoril) 15 mg HSPRN PRN NG Insomnia 11/21/19 13:00 11/28/19 08:14 Mike Hicks MD Nov 21, 2019 21:57
--- NOTE | 2019-11-21 22:00 | NUR ---
NURSE NOTES: Calm, asleep with HOB elevated. No distress. TF at 20ml/h well tolerated. VSS. Still on afib.
[2019-11-21] MEDS: cefTRIAXone 1 GM in D5W 55 ML IVPB SCH (23:12)
--- NOTE | 2019-11-21 23:15 | Consultation ---
DATE OF CONSULTATION: 11/21/2019 CARDIAC CONSULTATION CONSULTING PHYSICIAN: Vasu Zaidi M.D. REFERRING PHYSICIAN: Claude Garza M.D., and Susannah Hightower M.D. REASON FOR REFERRAL: Atrial fibrillation. HISTORY OF PRESENT ILLNESS: This is an elderly gentleman, who is on a mechanical ventilator and unable to provide any meaningful history. Information is obtained from the patient's chart. He is a resident of [facility] and apparently was transferred from the [facility] facility by ambulance because of increasing shortness of breath. Blood pressure was down to 80/50 at the [facility] facility and on 10 L on face mask, he was initially saturating greater than 95%, heart rate of 130 beats per minute, and has catheter in place. The patient's past medical history is really not completely clear because of lack of significant information, but the chart indicates that the patient is usually more responsive than he had been before. He received some intravenous antibiotics and breathing treatments and remained somewhat altered. Eventually because of his persistent acidosis, intubation was indicated and the patient agreed to that and was intubated, now on a mechanical ventilator. PAST MEDICAL HISTORY: According to what is available in the chart is positive for hypertension, Alzheimer's dementia, and prostatic hypertrophy. Also includes history of generalized muscle weakness, kidney failure, obstructive uropathy, latent tuberculosis, urinary tract infection, paroxysmal episodes of atrial fibrillation, heart failure, anemia, osteoarthritis, hyperlipidemia, and viral hepatitis C. ALLERGIES: He is allergic to lisinopril, simvastatin, and terazosin. MEDICATIONS: His medications at the [facility] facility are listed as including Tylenol, amlodipine 10 mg a day, apixaban 25 mg twice a day, 325 two times a day, Proscar, loratadine 10 mg a day, metoprolol 100 mg 3 times daily, multivitamin, chlorhexidine, MiraLAX, senna tablet, Renvela, simethicone, sodium bicarb tablets, Flomax, vitamin C, and Zofran. SOCIAL HISTORY: Unknown except for the fact that he resides in a convalescent facility. REVIEW OF SYSTEMS: Unable to obtain. PHYSICAL EXAMINATION: GENERAL: Shows to be elderly gentleman, on a mechanical ventilator. He is responsive somewhat to tactile stimuli, but because of his being on a ventilator, he is not able to communicate. VITAL SIGNS: His present vital signs, blood pressure has been anywhere between 141/93 with heart rates in the 80s to 106 range. NECK: Difficult to examine because of ET tube that is in place. LUNGS: Anteriorly appeared to be clear. CARDIAC: Irregularly irregular. Tachycardic. ABDOMEN: Somewhat distended. Not tender. EXTREMITIES: No significant edema. LABORATORY VALUES: Electrocardiogram provided by the paramedics indicate atrial fibrillation, ventricular response in the 115 range. His laboratories, white count of 11.1, hemoglobin 10.7, and platelet count 346,000. His blood gases after intubation, pH 7.38, pCO2 38, pO2 75, bicarb of 22, 93% saturation. Sodium is 143, potassium 6.1, chloride 103, bicarb of 21, BUN of 87, creatinine 6.9, and glucose of 128. Uric acid of 11.6. Lactic acidosis with level of 6.5, it is actually 4.5. CK of 186, troponin 0.06, and proBNP of 35,000 in the setting of renal failure is really of unknown significance. Urinalysis shows 20-30 wbc's and 5-10 rbc's. Chest x-ray performed in the emergency room initially showed congestive heart failure with suspected left pleural effusion. Subsequent chest x-ray showed moderate interstitial edema and bilateral pleural effusions. He has had abdominal x-rays that show limited study showing NG tube in good position and he had venous duplex of his lower extremities that showed no evidence of deep venous thromboses at this time. ASSESSMENT AND PLAN: 1. Possibly permanent versus paroxysmal episodes of atrial fibrillation. 2. Tachycardia. 3. Renal insufficiency. 4. Obstructive uropathy. 5. History of hypertension. 6. Prostatic hypertrophy. 7. History of latent tuberculosis. 8. History of heart failure. 9. History of hepatitis C infection. 10. Respiratory failure with respiratory acidosis, now on a ventilator. Dr. Hightower and Dr. Garza, this patient was seen in cardiac consultation. The patient's blood pressure has had significant improvement. The one possibility of initial blood pressure of 80/50, maybe erroneous. Nevertheless, the patient should be maintained on his anticoagulation whether with his previous dose of Xarelto or unfractionated heparin to prevent strokes in the setting of atrial fibrillation. He has received some intravenous fluids. I am not sure he does have history of chronic renal insufficiency, maybe it is not an acute exacerbation on top of chronic. Nephrology is to follow. Cardiac enzymes will be repeated. Echocardiogram has been performed. Preliminary report shows relatively normal left ventricular systolic function. We will continue him on some beta-blockers for control of the heart rate. I will hold off on Eliquis for the time being as he maybe in need of dialysis if approved. I will follow the patient along with you. Vasu Zaidi M.D. DR: Mark JOB#: [id number] CC:
[2019-11-22] VITALS (24 sets, daily range): BP systolic 114–151; BP diastolic 70–100
--- NOTE | 2019-11-22 | NUR ---
NURSE NOTES: Calm, asleep, no distress. VSS. Afib now controlled, rate in the 80's. BP stable. Afebrile.
--- NOTE | 2019-11-22 02:00 | NUR ---
NURSE NOTES: Sleeping, bilat soft wrist restraints maintained. VSS.
[2019-11-22] MEDS: D5 1/2NS 1,000 ML IV SCH ×2 (03:14→16:03)
--- NOTE | 2019-11-22 04:00 | NUR ---
NURSE NOTES: No BM, Complete bed bath done. Sacral wound dressing dry and intact. Denies pain. Tolerating current vent parameters, O2 sats 97-98%. PIV sites patent. Afebrile. Still on afib, rate 104; BP stable. Tf at goal of 30ml/h well tolerated, no residuals.Continue to monitor
--- NOTE | 2019-11-22 04:50 | NUR ---
RESPIRATORY NOTE: PT REMAINED STABLE ON CMV WITH CURRENT SETTINGS. SX PRN. AIRWAY IS SECURE AND PATENT. VENT CIRCUIT AND SX TUBBING SECURE AND OUT OF THE WAY. NO S/S OF RESPIRATORY DISTRESS NOTED AT THIS TIME.
[2019-11-22 05:12] LABS: BASOPHILS % (AUTO) 0.9 % (0.0-2.0); EOSINOPHILS % (AUTO) 1.8 % (0.0-3.0); HEMATOCRIT 28.7 % (42.0-52.0); HEMOGLOBIN 9.3 G/DL (14.2-18.0); LYMPHOCYTES % (AUTO) 6.7 % (20.0-45.0); MEAN CORPUSCULAR VOLUME 89 FL (80-99); NEUTROPHILS % (AUTO) 82.6 % (45.0-75.0); PLATELET COUNT 338 K/UL (150-450); RED BLOOD COUNT 3.21 M/UL (4.70-6.10); RED CELL DISTRIBUTION WIDTH 17.6 % (11.6-14.8); WHITE BLOOD COUNT 12.2 K/UL (4.8-10.8)
[2019-11-22 06:05] LABS: GAMMA GLUTAMYL TRANSPEPTIDASE 26 U/L (5-85)
[2019-11-22 06:11] LABS: % IRON SATURATION 16 % (15-50); IRON 27 ug/dL (50-175); TOTAL IRON BINDING CAPACITY 172 ug/dL (250-450)
[2019-11-22 06:19] LABS: ALANINE AMINOTRANSFERASE 19 U/L (12-78); ALBUMIN 2.6 G/DL (3.4-5.0); ALBUMIN/GLOBULIN RATIO 0.5 (1.0-2.7); ALKALINE PHOSPHATASE 51 U/L (46-116); ANION GAP 12 mmol/L (5-15); ASPARTATE AMINO TRANSFERASE 20 U/L (15-37); BILIRUBIN,TOTAL 0.3 MG/DL (0.2-1.0); BLOOD UREA NITROGEN 81 mg/dL (7-18); CALCIUM 9.6 MG/DL (8.5-10.1); CARBON DIOXIDE 26 MMOL/L (21-32); CHLORIDE 108 MMOL/L (98-107); CHOLESTEROL 111 MG/DL (< 200); CREATININE 6.4 MG/DL (0.55-1.30); FERRITIN 467 NG/ML (8-388); HDL CHOLESTEROL 46 MG/DL (40-60); PHOSPHORUS 2.9 MG/DL (2.5-4.9); POTASSIUM 3.8 MMOL/L (3.5-5.1); SODIUM 146 MMOL/L (136-145); TRIGLYCERIDES 68 MG/DL (30-150)
--- NOTE | 2019-11-22 07:18 | NUR ---
HAND-OFF: Report given to Carolina Avila RN.
--- NOTE | 2019-11-22 07:50 | NUR ---
NURSE NOTES: Dr. Zaidi updated on patient troponin level of 0.363 and no orders given at this time.
[2019-11-22] MEDS: LORazepam Inj 2mg/ml 1ml IV PRN ×3 (08:47→23:48)
--- NOTE | 2019-11-22 08:53 | NUR ---
RADIOLOGY DEPT., CHEST X-RAY COMPLETED.-P.DYE
[2019-11-22] MEDS: Pantoprazole Inj IV SCH ×2 (09:15→20:42)
[2019-11-22] MEDS: Docusate 100mg/10ml Liq NG SCH ×3 (09:15→17:54)
[2019-11-22] MEDS: Heparin 5000 units/ml inj SUBQ SCH (09:16)
[2019-11-22] MEDS: Morphine Sulfate 4mg/ml Inj (IV USE ONLY) IVP PRN ×2 (09:17→14:10)
--- NOTE | 2019-11-22 09:45 | NUR ---
NURSE NOTES: Patient administered Ativan and morphine due to patient being very agitated after chest x-ray. patient was tachycardic with rate of 140-160 in a-fibb, RR are 23-27.
--- NOTE | 2019-11-22 09:54 | NUR ---
RD ASSESSMENT & RECOMMENDATIONS SEE CARE ACTIVITY FOR COMPLETE ASSESSMENT DAILY ESTIMATED NEEDS: Needs based on Critical care, wound, ARF/ 80kg abw 22-28 kcals/kg [id number] total kcals 0.8-1.0 (increase w/ renal improvement) g protein/kg 64-80 g total protein Fluids per MD NUTRITION DIAGNOSIS: * Swallowing difficulty R/T respiratory status as evidenced by pt orally intubated, on OGT feeding. * Altered nutrition related lab values R/T ARF on CKD as evidenced by elev creat (6.4 -> 6.1), elev K (6.1*->3.8), elev BNP (>09500). CURRENT TF:Jevity 1.2 @ 30ml/hr x 24 hrs PO DIET RECOMMENDATIONS: [employer] eval post extubation ENTERAL NUTRITION RECOMMENDATIONS: Nepro @ 40ml/hr x 24 hrs to provide 960ml, 1728kcal, 78g prot, 698ml free water * Rec NEPRO at this time given hyperkalemia upon adm and elev creat 6.4 * Initiate Nepro @ 10ml/hr x 6hrs, advance 10ml q 4-6 hrs as tolerated to goal rate. * HOB over 30 degrees/ water flush per MD * TF @ goal will meet 98% est kcal and 100% est prot needs ADDITIONAL RECOMMENDATIONS: * Per SNF: HT=71" [id number] * Monitor renal fxn and lytes: creat 6.4, K 6.1 upon adm -> monitor continued need for renal TF formula of Nepro * Wound healing: add Nephrovite x 1 add Petros BID as tolerated
--- NOTE | 2019-11-22 10:19 | Pulmonolgy Critical Care Note ---
Critical Care - Asmt/Plan Problems: (1) Acute hypercapnic respiratory failure (2) Paroxysmal A-fib (3) Anemia, chronic renal failure (4) Acute on chronic renal insufficiency (5) Chronic hepatitis (6) Moderate pulmonary arterial systolic hypertension (7) Left ventricular ejection fraction greater than or equal to 40 percent (8) History of hypertension (9) Alzheimer's dementia (10) BPH (benign prostatic hyperplasia) Respiratory: monitor respiratory rate, adjust FIO2, CXR Cardiac: continue to monitor HR/BP Renal: F/U I&O Infectious Disease: check cultures, other - on cefepime Endocrine: monitor blood sugar Hematologic: monitor H/H, transfuse if hgb<8.5 Neurologic: PRN Ativan, keep patient comfortable Affect: PRN ativan Disposition: keep in ICU Notes Reviewed: tailor helper, renal, ID Critical Care - Objective Last 24 Hour Vital Signs Date Time Temp Pulse Resp B/P (MAP) Pulse Ox O2 Delivery O2 Flow Rate FiO2 11/22/19 09:15 140 151/90 11/22/19 08:00 30 11/22/19 08:00 97.8 94 18 141/82 (101) 99 11/22/19 07:42 91 17 30 11/22/19 07:00 100 16 140/82 (101) 99 11/22/19 06:11 118 20 11/22/19 06:05 95 16 137/90 (106) 99 11/22/19 05:00 98.7 96 19 135/100 (112) 95 11/22/19 04:50 96 17 30 11/22/19 04:00 Mechanical Ventilator 11/22/19 04:00 30 11/22/19 04:00 104 11/22/19 04:00 104 20 142/95 (111) 95 11/22/19 03:28 86 18 30 11/22/19 03:00 85 16 142/89 (106) 98 11/22/19 02:00 89 16 143/95 (111) 98 11/22/19 01:15 84 16 30 11/22/19 01:00 89 16 130/81 (97) 97 11/22/19 00:00 30 11/22/19 00:00 Mechanical Ventilator 11/22/19 00:00 80 11/22/19 00:00 98.5 80 16 130/90 (103) 99 11/21/19 23:00 83 16 126/88 (101) 98 11/21/19 22:40 90 16 30 11/21/19 22:00 93 16 132/78 (96) 98 11/21/19 21:25 95 18 30 11/21/19 21:00 104 19 142/95 (111) 98 11/21/19 20:50 110 141/93 11/21/19 20:09 106 11/21/19 20:00 30 11/21/19 20:00 Mechanical Ventilator 11/21/19 20:00 98.7 106 16 141/93 (109) 98 11/21/19 19:23 98 22 30 11/21/19 19:00 83 18 146/96 (113) 99 11/21/19 18:00 90 18 145/101 (116) 98 11/21/19 17:15 86 18 100 11/21/19 17:00 84 18 133/88 (103) 98 11/21/19 16:00 30 11/21/19 16:00 Mechanical Ventilator 11/21/19 16:00 98 11/21/19 16:00 98.5 97 18 145/99 (114) 97 11/21/19 15:00 94 19 144/82 (102) 98 11/21/19 14:52 82 18 100 11/21/19 14:00 92 18 95/77 (83) 99 11/21/19 13:14 81 18 100 11/21/19 13:00 95 18 131/101 (111) 97 11/21/19 12:00 98.6 98 18 144/97 (113) 98 11/21/19 12:00 89 11/21/19 12:00 30 11/21/19 11:32 Mechanical Ventilator 11/21/19 11:09 89 18 100 11/21/19 11:00 85 18 132/85 (101) 96 Status: sedated Condition: critical HEENT: atraumatic, normocephalic Neck: full ROM Lungs: chest wall tender Heart: HR/BP stable Abdomen: soft Extremities: no C/C/E Micro: Microbiology Date/Time Source Procedure Growth Status 11/21/19 17:10 Urine,Clean Catch Urine Culture - Preliminary Resulted 11/21/19 03:05 Urine,Clean Catch Urine Culture - Preliminary Gram Negative Bacillus 1 Resulted Critical Care - Subjective ROS Limited/Unobtainable: Yes Interval Events: comfortable, sedated FI02: 30 Vent Support Breath Rate: 18 Vent Support Mode: AC Vent Tidal Volume: 550 Sputum Amount: Small PEEP: 0.0 PIP: 30 Tube Feeding Amount: 30 I&O: Intake and Output 11/21/19 11/22/19 19:00 07:00 Intake Total 650 ml 1195 ml Output Total 410 ml 625 ml Balance 240 ml 570 ml Free Water 140 ml IV Total 435 ml 880 ml Tube Feeding 35 ml 315 ml Other 40 ml Output Urine Total 410 ml 625 ml CXR: ET in good position ET-Tube: 7.5 ET Position: 25 Labs: Laboratory Tests Test 11/21/19 17:10 11/21/19 20:40 11/22/19 04:00 11/22/19 04:25 Urine Color Pale yellow Urine Appearance Slightly cloudy Urine pH 6 (4.5-8.0) Urine Specific [place] 1.010 (1.005-1.035) Urine Protein 3+ (NEGATIVE) H Urine Glucose (UA) Negative (NEGATIVE) Urine Ketones Negative (NEGATIVE) Urine Blood 4+ (NEGATIVE) H Urine Nitrite Negative (NEGATIVE) Urine Bilirubin Negative (NEGATIVE) Urine Urobilinogen Normal MG/DL (0.0-1.0) Urine Leukocyte Esterase 3+ (NEGATIVE) H Urine RBC 5-10 /HPF (0 - 0) H Urine WBC 20-30 /HPF (0 - 0) H Urine Squamous Epithelial Cells None /LPF (NONE/OCC) Urine Bacteria Moderate /HPF (NONE) H Urine Random Sodium 55 mmol/L (20-110) Lactic Acid Level 0.90 mmol/L (0.4-2.0) 0.90 mmol/L (0.4-2.0) White Blood Count 12.2 K/UL (4.8-10.8) H Red Blood Count 3.21 M/UL (4.70-6.10) L Hemoglobin 9.3 G/DL (14.2-18.0) L Hematocrit 28.7 % (42.0-52.0) L Mean Corpuscular Volume 89 FL (80-99) Mean Corpuscular Hemoglobin 29.1 PG (27.0-31.0) Mean Corpuscular Hemoglobin Concent 32.5 G/DL (32.0-36.0) Red Cell Distribution Width 17.6 % (11.6-14.8) H Platelet Count 338 K/UL (150-450) Mean Platelet Volume 4.3 FL (6.5-10.1) L Neutrophils (%) (Auto) 82.6 % (45.0-75.0) H Lymphocytes (%) (Auto) 6.7 % (20.0-45.0) L Monocytes (%) (Auto) 8.0 % (1.0-10.0) Eosinophils (%) (Auto) 1.8 % (0.0-3.0) Basophils (%) (Auto) 0.9 % (0.0-2.0) Hemoglobin A1c 5.4 % (4.3-6.0) Uric Acid 10.7 MG/DL (2.6-7.2) H Magnesium Level 2.4 MG/DL (1.8-2.4) Iron Level 27 ug/dL (50-175) L Total Iron Binding Capacity 172 ug/dL (250-450) L Percent Iron Saturation 16 % (15-50) Unsaturated Iron Binding 145 ug/dL (112-346) Gamma Glutamyl Transpeptidase 26 U/L (5-85) Troponin I 0.363 ng/mL (0.000-0.056) C-Reactive Protein, Quantitative 11.7 mg/dL (0.00-0.90) H Pro-B-Type Natriuretic Peptide > 40652 pg/mL (0-125) H Lipase 67 U/L (73-393) L Sodium Level 146 MMOL/L (136-145) H Potassium Level 3.8 MMOL/L (3.5-5.1) Chloride Level 108 MMOL/L (98-107) H Carbon Dioxide Level 26 MMOL/L (21-32) Anion Gap 12 mmol/L (5-15) Blood Urea Nitrogen 81 mg/dL (7-18) H Creatinine 6.4 MG/DL (0.55-1.30) H Estimat Glomerular Filtration Rate 10.2 mL/min (>60) Glucose Level 106 MG/DL (74-106) Calcium Level 9.6 MG/DL (8.5-10.1) Phosphorus Level 2.9 MG/DL (2.5-4.9) Ferritin 467 NG/ML (8-388) H Total Bilirubin 0.3 MG/DL (0.2-1.0) Aspartate Amino Transf (AST/SGOT) 20 U/L (15-37) Alanine Aminotransferase (ALT/SGPT) 19 U/L (12-78) Alkaline Phosphatase 51 U/L (46-116) Total Protein 7.5 G/DL (6.4-8.2) Albumin 2.6 G/DL (3.4-5.0) L Globulin 4.9 g/dL Albumin/Globulin Ratio 0.5 (1.0-2.7) L Triglycerides Level 68 MG/DL (30-150) Cholesterol Level 111 MG/DL (< 200) LDL Cholesterol 54 mg/dL (<100) HDL Cholesterol 46 MG/DL (40-60) Cholesterol/HDL Ratio 2.4 (3.3-4.4) L Vitamin B12 Level 560 PG/ML (193-986) Folate 18.7 NG/ML (8.6-58.9) Thyroid Stimulating Hormone (TSH) 3.453 uiU/mL (0.358-3.740) Test 11/22/19 05:00 11/22/19 10:05 Urine Eosinophils None seen (NONE SEEN) Troponin I Pending Susannah Hightower MD Nov 22, 2019 10:19
--- NOTE | 2019-11-22 10:43 | Nephrology Progress Note ---
Assessment/Plan Problem List: (1) Acute on chronic renal insufficiency (2) Acute hypercapnic respiratory failure (3) Anemia in chronic kidney disease (CKD) (4) BPH (benign prostatic hyperplasia) Assessment Acute renal failure Possible underlying chronic kidney failure Hyperkalemia Anemia other conditions: (1) Acute hypercapnic respiratory failure (2) Paroxysmal A-fib (3) Anemia, chronic renal failure (4) History of hypertension (5) Alzheimer's dementia (6) Chronic hepatitis (7) BPH (benign prostatic hyperplasia) Plan Increase Lopressor dose Nitrate Slow hydration Monitor intake and output Monitor renal parameters Avoid nephrotoxic's Kidney ultrasound results noted indicative of chronicity 2D echocardiogram result noted ejection fraction 55% Anemia work-up noted Per orders Subjective ROS Limited/Unobtainable: Yes Objective Objective Last 24 Hour Vital Signs Date Time Temp Pulse Resp B/P (MAP) Pulse Ox O2 Delivery O2 Flow Rate FiO2 11/22/19 10:00 96 16 128/80 (96) 100 11/22/19 09:15 140 151/90 11/22/19 09:00 138 23 151/90 (110) 99 11/22/19 08:00 30 11/22/19 08:00 95 11/22/19 08:00 97.8 94 18 141/82 (101) 99 11/22/19 07:42 91 17 30 11/22/19 07:00 100 16 140/82 (101) 99 11/22/19 06:11 118 20 11/22/19 06:05 95 16 137/90 (106) 99 11/22/19 05:00 98.7 96 19 135/100 (112) 95 11/22/19 04:50 96 17 30 11/22/19 04:00 Mechanical Ventilator 11/22/19 04:00 30 11/22/19 04:00 104 11/22/19 04:00 104 20 142/95 (111) 95 11/22/19 03:28 86 18 30 11/22/19 03:00 85 16 142/89 (106) 98 11/22/19 02:00 89 16 143/95 (111) 98 11/22/19 01:15 84 16 30 11/22/19 01:00 89 16 130/81 (97) 97 11/22/19 00:00 30 11/22/19 00:00 Mechanical Ventilator 3/19/20 00:00 80 11/22/19 00:00 98.5 80 16 130/90 (103) 99 11/21/19 23:00 83 16 126/88 (101) 98 11/21/19 22:40 90 16 30 11/21/19 22:00 93 16 132/78 (96) 98 11/21/19 21:25 95 18 30 11/21/19 21:00 104 19 142/95 (111) 98 11/21/19 20:50 110 141/93 11/21/19 20:09 106 11/21/19 20:00 30 11/21/19 20:00 Mechanical Ventilator 11/21/19 20:00 98.7 106 16 141/93 (109) 98 11/21/19 19:23 98 22 30 11/21/19 19:00 83 18 146/96 (113) 99 11/21/19 18:00 90 18 145/101 (116) 98 11/21/19 17:15 86 18 100 11/21/19 17:00 84 18 133/88 (103) 98 11/21/19 16:00 30 11/21/19 16:00 Mechanical Ventilator 11/21/19 16:00 98 11/21/19 16:00 98.5 97 18 145/99 (114) 97 11/21/19 15:00 94 19 144/82 (102) 98 11/21/19 14:52 82 18 100 11/21/19 14:00 92 18 95/77 (83) 99 11/21/19 13:14 81 18 100 11/21/19 13:00 95 18 131/101 (111) 97 11/21/19 12:00 98.6 98 18 144/97 (113) 98 11/21/19 12:00 89 11/21/19 12:00 30 11/21/19 11:32 Mechanical Ventilator 11/21/19 11:09 89 18 100 11/21/19 11:00 85 18 132/85 (101) 96 Intake and Output 11/21/19 11/22/19 19:00 07:00 Intake Total 650 ml 1195 ml Output Total 410 ml 625 ml Balance 240 ml 570 ml Free Water 140 ml IV Total 435 ml 880 ml Tube Feeding 35 ml 315 ml Other 40 ml Output Urine Total 410 ml 625 ml Laboratory Tests 11/21/19 17:10: Urine Color Pale yellow, Urine Appearance Slightly cloudy, Urine pH 6, Urine Specific [place] 1.010, Urine Protein 3+H, Urine Glucose (UA) Negative, Urine Ketones Negative, Urine Blood 4+H, Urine Nitrite Negative, Urine Bilirubin Negative, Urine Urobilinogen Normal, Urine Leukocyte Esterase 3+H, Urine RBC 5- 10H, Urine WBC 20-30H, Urine Squamous Epithelial Cells None, Urine Bacteria ModerateH, Urine Random Sodium 55 11/21/19 20:40: Lactic Acid Level 0.90 11/22/19 04:00: Lactic Acid Level 0.90, White Blood Count 12.2H, Red Blood Count 3.21L, Hemoglobin 9.3L, Hematocrit 28.7L, Mean Corpuscular Volume 89, Mean Corpuscular Hemoglobin 29.1, Mean Corpuscular Hemoglobin Concent 32.5, Red Cell Distribution Width 17.6H, Platelet Count 338, Mean Platelet Volume 4.3L, Neutrophils (%) (Auto) 82.6H, Lymphocytes (%) (Auto) 6.7L, Monocytes (%) (Auto) 8.0, Eosinophils (%) (Auto) 1.8, Basophils (%) (Auto) 0.9, Hemoglobin A1c 5.4, Uric Acid 10.7H, Magnesium Level 2.4, Iron Level 27L, Total Iron Binding Capacity 172L, Percent Iron Saturation 16, Unsaturated Iron Binding 145, Gamma Glutamyl Transpeptidase 26, Troponin I 0.363H, C-Reactive Protein, Quantitative 11.7H, Pro-B-Type Natriuretic Peptide > 87629C, Lipase 67L 11/22/19 04:25: Sodium Level 146H, Potassium Level 3.8, Chloride Level 108H, Carbon Dioxide Level 26, Anion Gap 12, Blood Urea Nitrogen 81H, Creatinine 6.4H, Estimat Glomerular Filtration Rate 10.2, Glucose Level 106, Calcium Level 9.6, Phosphorus Level 2.9, Ferritin 467H, Total Bilirubin 0.3, Aspartate Amino Transf (AST/SGOT) 20, Alanine Aminotransferase (ALT/SGPT) 19, Alkaline Phosphatase 51, Total Protein 7.5, Albumin 2.6L, Globulin 4.9, Albumin/Globulin Ratio 0.5L, Triglycerides Level 68, Cholesterol Level 111, LDL Cholesterol 54, HDL Cholesterol 46, Cholesterol/HDL Ratio 2.4L, Vitamin B12 Level 560, Folate 18.7, Thyroid Stimulating Hormone (TSH) 3.453 11/22/19 05:00: Urine Eosinophils None seen 11/22/19 10:05: Troponin I [Pending] Height (Feet): 5 Height (Inches): 10.00 Weight (Pounds): 206 General Appearance: no apparent distress EENT: other - Vented Cardiovascular: tachycardia Respiratory/Chest: decreased breath sounds Abdomen: distended Reynold Ellison MD Nov 22, 2019 10:43
--- NOTE | 2019-11-22 10:55 | NUR ---
NURSE NOTES: Dr. Hightower updated on patient progress and chest x-ray, patient changed to 100% FIO2 after episode of shortness of breath and agitation from chest x-ray film in the morning. will titrated fio2.
--- NOTE | 2019-11-22 11:55 | NUR ---
NURSE NOTES: patient remains on bilateral wrist restraints for reaching towards Et-tube, hands are warm and pink with peripheral pulses present. he is sedated but response to pain.
--- NOTE | 2019-11-22 12:36 | Diagnostic Imaging Report ---
Indication: Dyspnea Comparison: 11/21/2019 A single view chest radiograph was obtained. Findings: Pulmonary vascular congestion demonstrated. The heart is enlarged. Endotracheal tube and nasogastric tubes are in good position. IMPRESSION: Pulmonary vascular congestion
[2019-11-22] MEDS: Nitroglycerin Patch 0.4mg TDERMAL SCH (13:12)
--- NOTE | 2019-11-22 14:35 | NUR ---
NURSE NOTES: Dr. Zaidi updated of patient cardiac progress at the bedside, also updated on the troponin decrease to 0.238 from morning draw. no new orders given at this time. Patient given Ativan and Morphine to sedate since patient is agitated, noted to attempt to sit on bed and reaching towards tubes. HR is increasing to 100-110 and remained in a-fibb. RR increase to 20-28. after administration of Ativan and Morphine dose, HR decreased to 75-85 and remained in A-fibb and respirations decresed to 18-20. patient is more relaxed and calm.
--- NOTE | 2019-11-22 14:43 | Cardiology Progress Note ---
Assessment/Plan Assessment/Plan 1. Possibly permanent versus paroxysmal episodes of atrial fibrillation. 2. Tachycardia. 3. Renal insufficiency. 4. Obstructive uropathy. 5. History of hypertension. 6. Prostatic hypertrophy. 7. History of latent tuberculosis. 8. History of heart failure. 9. History of hepatitis C infection. 10. Respiratory failure with respiratory acidosis, now on vent cxr personally reviewed tele personally reviewed ekg reviewed d/w rn on several occasion torp abn likely due to renal insuf needs anticoagulation i have held due to the need for dialysis catheter implantation will d/w dr guzmán Subjective ROS Limited/Unobtainable: Yes Objective Last 24 Hour Vital Signs Date Time Temp Pulse Resp B/P (MAP) Pulse Ox O2 Delivery O2 Flow Rate FiO2 11/22/19 14:00 85 18 114/70 (85) 96 11/22/19 13:12 139/85 11/22/19 13:00 73 18 139/85 (103) 96 11/22/19 12:43 82 17 30 11/22/19 12:00 99.1 85 19 132/81 (98) 95 11/22/19 12:00 Mechanical Ventilator 11/22/19 12:00 30 11/22/19 11:20 88 11/22/19 11:11 90 17 30 11/22/19 11:00 92 17 144/92 (109) 100 11/22/19 10:00 96 16 128/80 (96) 100 11/22/19 09:15 140 151/90 11/22/19 09:12 136 23 30 11/22/19 09:00 138 23 151/90 (110) 99 11/22/19 08:00 Mechanical Ventilator 11/22/19 08:00 30 11/22/19 08:00 95 11/22/19 08:00 97.8 94 18 141/82 (101) 99 11/22/19 07:42 91 17 30 11/22/19 07:00 100 16 140/82 (101) 99 11/22/19 06:11 118 20 11/22/19 06:05 95 16 137/90 (106) 99 11/22/19 05:00 98.7 96 19 135/100 (112) 95 11/22/19 04:50 96 17 30 11/22/19 04:00 Mechanical Ventilator 3/19/20 04:00 30 11/22/19 04:00 104 11/22/19 04:00 104 20 142/95 (111) 95 11/22/19 03:28 86 18 30 11/22/19 03:00 85 16 142/89 (106) 98 11/22/19 02:00 89 16 143/95 (111) 98 11/22/19 01:15 84 16 30 11/22/19 01:00 89 16 130/81 (97) 97 11/22/19 00:00 30 11/22/19 00:00 Mechanical Ventilator 11/22/19 00:00 80 11/22/19 00:00 98.5 80 16 130/90 (103) 99 11/21/19 23:00 83 16 126/88 (101) 98 11/21/19 22:40 90 16 30 11/21/19 22:00 93 16 132/78 (96) 98 11/21/19 21:25 95 18 30 11/21/19 21:00 104 19 142/95 (111) 98 11/21/19 20:50 110 141/93 11/21/19 20:09 106 11/21/19 20:00 30 11/21/19 20:00 Mechanical Ventilator 11/21/19 20:00 98.7 106 16 141/93 (109) 98 11/21/19 19:23 98 22 30 11/21/19 19:00 83 18 146/96 (113) 99 11/21/19 18:00 90 18 145/101 (116) 98 11/21/19 17:15 86 18 100 11/21/19 17:00 84 18 133/88 (103) 98 11/21/19 16:00 30 11/21/19 16:00 Mechanical Ventilator 11/21/19 16:00 98 11/21/19 16:00 98.5 97 18 145/99 (114) 97 11/21/19 15:00 94 19 144/82 (102) 98 11/21/19 14:52 82 18 100 General Appearance: no apparent distress, on vent, patient on isolation Cardiovascular: irregularly irregular Respiratory/Chest: lungs clear Abdomen: normal bowel sounds, non tender, soft Extremities: no swelling Intake and Output 11/21/19 11/22/19 19:00 07:00 Intake Total 650 ml 1270 ml Output Total 410 ml 625 ml Balance 240 ml 645 ml Free Water 140 ml IV Total 435 ml 955 ml Tube Feeding 35 ml 315 ml Other 40 ml Output Urine Total 410 ml 625 ml Laboratory Tests Test 11/21/19 17:10 11/21/19 20:40 11/22/19 04:00 11/22/19 04:25 Urine Color Pale yellow Urine Appearance Slightly cloudy Urine pH 6 (4.5-8.0) Urine Specific [place] 1.010 (1.005-1.035) Urine Protein 3+ (NEGATIVE) H Urine Glucose (UA) Negative (NEGATIVE) Urine Ketones Negative (NEGATIVE) Urine Blood 4+ (NEGATIVE) H Urine Nitrite Negative (NEGATIVE) Urine Bilirubin Negative (NEGATIVE) Urine Urobilinogen Normal MG/DL (0.0-1.0) Urine Leukocyte Esterase 3+ (NEGATIVE) H Urine RBC 5-10 /HPF (0 - 0) H Urine WBC 20-30 /HPF (0 - 0) H Urine Squamous Epithelial Cells None /LPF (NONE/OCC) Urine Bacteria Moderate /HPF (NONE) H Urine Random Sodium 55 mmol/L (20-110) Lactic Acid Level 0.90 mmol/L (0.4-2.0) 0.90 mmol/L (0.4-2.0) White Blood Count 12.2 K/UL (4.8-10.8) H Red Blood Count 3.21 M/UL (4.70-6.10) L Hemoglobin 9.3 G/DL (14.2-18.0) L Hematocrit 28.7 % (42.0-52.0) L Mean Corpuscular Volume 89 FL (80-99) Mean Corpuscular Hemoglobin 29.1 PG (27.0-31.0) Mean Corpuscular Hemoglobin Concent 32.5 G/DL (32.0-36.0) Red Cell Distribution Width 17.6 % (11.6-14.8) H Platelet Count 338 K/UL (150-450) Mean Platelet Volume 4.3 FL (6.5-10.1) L Neutrophils (%) (Auto) 82.6 % (45.0-75.0) H Lymphocytes (%) (Auto) 6.7 % (20.0-45.0) L Monocytes (%) (Auto) 8.0 % (1.0-10.0) Eosinophils (%) (Auto) 1.8 % (0.0-3.0) Basophils (%) (Auto) 0.9 % (0.0-2.0) Hemoglobin A1c 5.4 % (4.3-6.0) Uric Acid 10.7 MG/DL (2.6-7.2) H Magnesium Level 2.4 MG/DL (1.8-2.4) Iron Level 27 ug/dL (50-175) L Total Iron Binding Capacity 172 ug/dL (250-450) L Percent Iron Saturation 16 % (15-50) Unsaturated Iron Binding 145 ug/dL (112-346) Gamma Glutamyl Transpeptidase 26 U/L (5-85) Troponin I 0.363 ng/mL (0.000-0.056) C-Reactive Protein, Quantitative 11.7 mg/dL (0.00-0.90) H Pro-B-Type Natriuretic Peptide > 38384 pg/mL (0-125) H Lipase 67 U/L (73-393) L Sodium Level 146 MMOL/L (136-145) H Potassium Level 3.8 MMOL/L (3.5-5.1) Chloride Level 108 MMOL/L (98-107) H Carbon Dioxide Level 26 MMOL/L (21-32) Anion Gap 12 mmol/L (5-15) Blood Urea Nitrogen 81 mg/dL (7-18) H Creatinine 6.4 MG/DL (0.55-1.30) H Estimat Glomerular Filtration Rate 10.2 mL/min (>60) Glucose Level 106 MG/DL (74-106) Calcium Level 9.6 MG/DL (8.5-10.1) Phosphorus Level 2.9 MG/DL (2.5-4.9) Ferritin 467 NG/ML (8-388) H Total Bilirubin 0.3 MG/DL (0.2-1.0) Aspartate Amino Transf (AST/SGOT) 20 U/L (15-37) Alanine Aminotransferase (ALT/SGPT) 19 U/L (12-78) Alkaline Phosphatase 51 U/L (46-116) Total Protein 7.5 G/DL (6.4-8.2) Albumin 2.6 G/DL (3.4-5.0) L Globulin 4.9 g/dL Albumin/Globulin Ratio 0.5 (1.0-2.7) L Triglycerides Level 68 MG/DL (30-150) Cholesterol Level 111 MG/DL (< 200) LDL Cholesterol 54 mg/dL (<100) HDL Cholesterol 46 MG/DL (40-60) Cholesterol/HDL Ratio 2.4 (3.3-4.4) L Vitamin B12 Level 560 PG/ML (193-986) Folate 18.7 NG/ML (8.6-58.9) Thyroid Stimulating Hormone (TSH) 3.453 uiU/mL (0.358-3.740) Test 11/22/19 05:00 11/22/19 10:05 Urine Eosinophils None seen (NONE SEEN) Troponin I 0.238 ng/mL (0.000-0.056) Microbiology Date/Time Source Procedure Growth Status 11/21/19 03:05 Blood Not Otherwise Specified Blood Culture - Preliminary Resulted 11/21/19 02:50 Blood Not Otherwise Specified Blood Culture - Preliminary Resulted 11/21/19 17:10 Urine,Clean Catch Urine Culture - Preliminary Resulted 11/21/19 03:05 Urine,Clean Catch Urine Culture - Preliminary Gram Negative Bacillus 1 Resulted Vasu Zaidi MD Nov 22, 2019 14:43
--- NOTE | 2019-11-22 14:55 | Consultation ---
History of Present Illness General Date patient seen: Nov 21, 2019 Time patient seen: 19:00 Chief Complaint: Dyspnea/Respdistress Referring physician: PCP , Reason for Consultation: Sepsis Present Illness HPI The patient is an 83-year-old male, w multiple PMHx who was admitted for ALOC and hypoxemia and was intubated, pt has no fever, and off of pressors. ID Cons was requested for eval of the patient for UTI and probable sepsis. PMHx: 1. Hypertension. 2. Alzheimer's dementia. 3. Benign prostatic hypertrophy. CURRENT MEDICATIONS: no AB Rx ALLERGIES: To lisinopril, simvastatin, and terazosin. SOCIAL HISTORY: Unknown. REVIEW OF SYSTEMS: Unable , pt is intubated Allergies: Coded Allergies: LISINOPRIL (Verified Allergy, Unknown, 11/21/19) SIMVASTATIN (Verified Allergy, Unknown, 11/21/19) TERAZOSIN (Verified Allergy, Unknown, 11/21/19) Patient History Healthcare decision maker Resuscitation status Full Code Advanced Directive on File Physical Exam General Appearance: moderate distress Lines, tubes and drains: PICC HEENT: anicteric Neck: supple Respiratory/Chest: respiratory distress, accessory muscle use Cardiovascular/Chest: regular rhythm Abdomen: soft, no organomegaly Extremities: non-tender, normal inspection Last 24 Hour Vital Signs Date Time Temp Pulse Resp B/P (MAP) Pulse Ox O2 Delivery O2 Flow Rate FiO2 11/22/19 14:00 85 18 114/70 (85) 96 11/22/19 13:12 139/85 11/22/19 13:00 73 18 139/85 (103) 96 11/22/19 12:43 82 17 30 11/22/19 12:00 99.1 85 19 132/81 (98) 95 11/22/19 12:00 Mechanical Ventilator 11/22/19 12:00 30 11/22/19 11:20 88 11/22/19 11:11 90 17 30 11/22/19 11:00 92 17 144/92 (109) 100 11/22/19 10:00 96 16 128/80 (96) 100 11/22/19 09:15 140 151/90 11/22/19 09:12 136 23 30 11/22/19 09:00 138 23 151/90 (110) 99 11/22/19 08:00 Mechanical Ventilator 11/22/19 08:00 30 3/19/20 08:00 95 11/22/19 08:00 97.8 94 18 141/82 (101) 99 11/22/19 07:42 91 17 30 11/22/19 07:00 100 16 140/82 (101) 99 11/22/19 06:11 118 20 11/22/19 06:05 95 16 137/90 (106) 99 11/22/19 05:00 98.7 96 19 135/100 (112) 95 11/22/19 04:50 96 17 30 11/22/19 04:00 Mechanical Ventilator 11/22/19 04:00 30 11/22/19 04:00 104 11/22/19 04:00 104 20 142/95 (111) 95 11/22/19 03:28 86 18 30 11/22/19 03:00 85 16 142/89 (106) 98 11/22/19 02:00 89 16 143/95 (111) 98 11/22/19 01:15 84 16 30 11/22/19 01:00 89 16 130/81 (97) 97 11/22/19 00:00 30 11/22/19 00:00 Mechanical Ventilator 11/22/19 00:00 80 11/22/19 00:00 98.5 80 16 130/90 (103) 99 11/21/19 23:00 83 16 126/88 (101) 98 11/21/19 22:40 90 16 30 11/21/19 22:00 93 16 132/78 (96) 98 20 21:25 95 18 30 11/21/19 21:00 104 19 142/95 (111) 98 11/21/19 20:50 110 141/93 20 20:09 106 11/21/19 20:00 30 11/21/19 20:00 Mechanical Ventilator 11/21/19 20:00 98.7 106 16 141/93 (109) 98 11/21/19 19:23 98 22 30 11/21/19 19:00 83 18 146/96 (113) 99 11/21/19 18:00 90 18 145/101 (116) 98 11/21/19 17:15 86 18 100 11/21/19 17:00 84 18 133/88 (103) 98 3/18/20 16:00 30 11/21/19 16:00 Mechanical Ventilator 11/21/19 16:00 98 11/21/19 16:00 98.5 97 18 145/99 (114) 97 11/21/19 15:00 94 19 144/82 (102) 98 Intake and Output 11/21/19 11/22/19 19:00 07:00 Intake Total 650 ml 1270 ml Output Total 410 ml 625 ml Balance 240 ml 645 ml Free Water 140 ml IV Total 435 ml 955 ml Tube Feeding 35 ml 315 ml Other 40 ml Output Urine Total 410 ml 625 ml Laboratory Tests Test 11/21/19 17:10 11/21/19 20:40 11/22/19 04:00 11/22/19 04:25 Urine Color Pale yellow Urine Appearance Slightly cloudy Urine pH 6 (4.5-8.0) Urine Specific [place] 1.010 (1.005-1.035) Urine Protein 3+ (NEGATIVE) H Urine Glucose (UA) Negative (NEGATIVE) Urine Ketones Negative (NEGATIVE) Urine Blood 4+ (NEGATIVE) H Urine Nitrite Negative (NEGATIVE) Urine Bilirubin Negative (NEGATIVE) Urine Urobilinogen Normal MG/DL (0.0-1.0) Urine Leukocyte Esterase 3+ (NEGATIVE) H Urine RBC 5-10 /HPF (0 - 0) H Urine WBC 20-30 /HPF (0 - 0) H Urine Squamous Epithelial Cells None /LPF (NONE/OCC) Urine Bacteria Moderate /HPF (NONE) H Urine Random Sodium 55 mmol/L (20-110) Lactic Acid Level 0.90 mmol/L (0.4-2.0) 0.90 mmol/L (0.4-2.0) White Blood Count 12.2 K/UL (4.8-10.8) H Red Blood Count 3.21 M/UL (4.70-6.10) L Hemoglobin 9.3 G/DL (14.2-18.0) L Hematocrit 28.7 % (42.0-52.0) L Mean Corpuscular Volume 89 FL (80-99) Mean Corpuscular Hemoglobin 29.1 PG (27.0-31.0) Mean Corpuscular Hemoglobin Concent 32.5 G/DL (32.0-36.0) Red Cell Distribution Width 17.6 % (11.6-14.8) H Platelet Count 338 K/UL (150-450) Mean Platelet Volume 4.3 FL (6.5-10.1) L Neutrophils (%) (Auto) 82.6 % (45.0-75.0) H Lymphocytes (%) (Auto) 6.7 % (20.0-45.0) L Monocytes (%) (Auto) 8.0 % (1.0-10.0) Eosinophils (%) (Auto) 1.8 % (0.0-3.0) Basophils (%) (Auto) 0.9 % (0.0-2.0) Hemoglobin A1c 5.4 % (4.3-6.0) Uric Acid 10.7 MG/DL (2.6-7.2) H Magnesium Level 2.4 MG/DL (1.8-2.4) Iron Level 27 ug/dL (50-175) L Total Iron Binding Capacity 172 ug/dL (250-450) L Percent Iron Saturation 16 % (15-50) Unsaturated Iron Binding 145 ug/dL (112-346) Gamma Glutamyl Transpeptidase 26 U/L (5-85) Troponin I 0.363 ng/mL (0.000-0.056) C-Reactive Protein, Quantitative 11.7 mg/dL (0.00-0.90) H Pro-B-Type Natriuretic Peptide > 40450 pg/mL (0-125) H Lipase 67 U/L (73-393) L Sodium Level 146 MMOL/L (136-145) H Potassium Level 3.8 MMOL/L (3.5-5.1) Chloride Level 108 MMOL/L (98-107) H Carbon Dioxide Level 26 MMOL/L (21-32) Anion Gap 12 mmol/L (5-15) Blood Urea Nitrogen 81 mg/dL (7-18) H Creatinine 6.4 MG/DL (0.55-1.30) H Estimat Glomerular Filtration Rate 10.2 mL/min (>60) Glucose Level 106 MG/DL (74-106) Calcium Level 9.6 MG/DL (8.5-10.1) Phosphorus Level 2.9 MG/DL (2.5-4.9) Ferritin 467 NG/ML (8-388) H Total Bilirubin 0.3 MG/DL (0.2-1.0) Aspartate Amino Transf (AST/SGOT) 20 U/L (15-37) Alanine Aminotransferase (ALT/SGPT) 19 U/L (12-78) Alkaline Phosphatase 51 U/L (46-116) Total Protein 7.5 G/DL (6.4-8.2) Albumin 2.6 G/DL (3.4-5.0) L Globulin 4.9 g/dL Albumin/Globulin Ratio 0.5 (1.0-2.7) L Triglycerides Level 68 MG/DL (30-150) Cholesterol Level 111 MG/DL (< 200) LDL Cholesterol 54 mg/dL (<100) HDL Cholesterol 46 MG/DL (40-60) Cholesterol/HDL Ratio 2.4 (3.3-4.4) L Vitamin B12 Level 560 PG/ML (193-986) Folate 18.7 NG/ML (8.6-58.9) Thyroid Stimulating Hormone (TSH) 3.453 uiU/mL (0.358-3.740) Test 11/22/19 05:00 11/22/19 10:05 Urine Eosinophils None seen (NONE SEEN) Troponin I 0.238 ng/mL (0.000-0.056) Microbiology Date/Time Source Procedure Growth Status 11/21/19 17:10 Urine,Clean Catch Urine Culture - Preliminary Resulted Height (Feet): 5 Height (Inches): 10.00 Weight (Pounds): 206 Medications Current Medications Medications (Trade) Dose Ordered Sig/Cyndi Route PRN Reason Start Time Stop Time Status Last Admin Dose Admin Acetaminophen (Tylenol) 650 mg Q4H PRN NG Fever 11/21/19 13:00 12/21/19 08:14 Albuterol/ Ipratropium (Albuterol/ Ipratropium) 3 ml Q4H PRN HHN Shortness of Breath 11/21/19 08:15 11/26/19 08:14 Aspirin (ASA) 81 mg DAILY NG 11/23/19 09:00 01/07/20 08:59 Ceftriaxone Sodium 1 gm/ Dextrose 55 ml @ 110 mls/hr Q24H IVPB 11/21/19 23:00 11/28/19 22:59 11/21/19 23:12 Dextrose (Dextrose 50%) 25 ml Q30M PRN IV Hypoglycemia 11/21/19 08:15 02/19/20 08:14 Dextrose (Dextrose 50%) 50 ml Q30M PRN IV Hypoglycemia 11/21/19 08:15 02/19/20 08:14 Dextrose/Sodium Chloride 1,000 ml @ 75 mls/hr [id number] IV 11/21/19 13:00 12/21/19 12:59 11/22/19 03:14 Docusate Sodium (Colace) 100 mg THREE TIMES A DAY NG 11/21/19 13:00 12/21/19 12:59 11/22/19 13:12 Heparin Sodium (Porcine) (Heparin 5000 units/ml) 5,000 units EVERY 12 HOURS SUBQ 11/21/19 09:39 01/05/20 09:38 11/22/19 09:16 Lorazepam (Ativan 2mg/ml 1ml) 2 mg Q4H PRN IV For Anxiety 11/21/19 08:15 11/28/19 08:14 11/22/19 14:09 Metoprolol Tartrate (Lopressor) 50 mg Q12HR NG 11/22/19 21:00 02/19/20 20:59 Morphine Sulfate (Morphine Sulfate) 4 mg Q4H PRN IVP For Pain 11/21/19 08:15 11/28/19 08:14 11/22/19 14:10 Nitroglycerin (Ntg) 1 patch Q24H TDERMAL 11/22/19 11:00 12/22/19 10:59 11/22/19 13:12 Ondansetron HCl (Zofran) 4 mg Q6H PRN IVP Nausea & Vomiting 11/21/19 08:15 12/21/19 08:14 Pantoprazole (Protonix) 40 mg Q12HR IV 11/21/19 21:00 12/21/19 09:38 11/22/19 09:15 Polyethylene Glycol (Miralax) 17 gm DAILYPRN PRN NG Constipation 11/21/19 13:00 12/21/19 08:14 Temazepam (Restoril) 15 mg HSPRN PRN NG Insomnia 11/21/19 13:00 11/28/19 08:14 Assessment/Plan Assessment/Plan: ASSESSMENT: This is an 83-year-old male. Afebrile Nl WBC Doubt Pneum ( - Respiratory failure: m/l 2/2 CHF, elevated BNP) Probable UTI Ro Bactremia Congestive heart failure. Atrial fibrillation. Altered mental status. Urinary tract infection. Renal failure. Hypertension. Alzheimer's dementia. BPH P: Start pt on IV Rocephin # 1 Monitor CBC, CMP Monitor Cx Monitor CXR Rsp support Chest CT Thank you , we will follow Mike Hicks MD Nov 22, 2019 14:55
--- NOTE | 2019-11-22 15:00 | Infectious Diseases Prog Note ---
Assessment/Plan Assessment/Plan ASSESSMENT: This is an 83-year-old male. Afebrile Nl WBC Doubt Pneum (at this time) - Respiratory failure: m/l 2/2 CHF, elevated BNP) Probable UTI - UCX : GNR GPC Bacteremia Congestive heart failure. Atrial fibrillation. Altered mental status. Urinary tract infection. Renal failure. Hypertension. Alzheimer's dementia. BPH P: cont IV Vanco # 1 Cont pt on IV Rocephin # 2 Monitor CBC, CMP Monitor Cx ( B, U, Sp ) Monitor CXR Rsp support Chest CT Bl cx Rpt Subjective Allergies: Coded Allergies: LISINOPRIL (Verified Allergy, Unknown, 11/21/19) SIMVASTATIN (Verified Allergy, Unknown, 11/21/19) TERAZOSIN (Verified Allergy, Unknown, 11/21/19) Subjective in ICU on vent Objective Vital Signs Last 24 Hour Vital Signs Date Time Temp Pulse Resp B/P (MAP) Pulse Ox O2 Delivery O2 Flow Rate FiO2 11/22/19 14:00 85 18 114/70 (85) 96 11/22/19 13:12 139/85 11/22/19 13:00 73 18 139/85 (103) 96 11/22/19 12:43 82 17 30 11/22/19 12:00 99.1 85 19 132/81 (98) 95 11/22/19 12:00 Mechanical Ventilator 11/22/19 12:00 30 11/22/19 11:20 88 11/22/19 11:11 90 17 30 11/22/19 11:00 92 17 144/92 (109) 100 11/22/19 10:00 96 16 128/80 (96) 100 11/22/19 09:15 140 151/90 11/22/19 09:12 136 23 30 11/22/19 09:00 138 23 151/90 (110) 99 11/22/19 08:00 Mechanical Ventilator 11/22/19 08:00 30 11/22/19 08:00 95 11/22/19 08:00 97.8 94 18 141/82 (101) 99 11/22/19 07:42 91 17 30 11/22/19 07:00 100 16 140/82 (101) 99 11/22/19 06:11 118 20 11/22/19 06:05 95 16 137/90 (106) 99 11/22/19 05:00 98.7 96 19 135/100 (112) 95 11/22/19 04:50 96 17 30 11/22/19 04:00 Mechanical Ventilator 11/22/19 04:00 30 11/22/19 04:00 104 11/22/19 04:00 104 20 142/95 (111) 95 11/22/19 03:28 86 18 30 11/22/19 03:00 85 16 142/89 (106) 98 11/22/19 02:00 89 16 143/95 (111) 98 11/22/19 01:15 84 16 30 11/22/19 01:00 89 16 130/81 (97) 97 11/22/19 00:00 30 11/22/19 00:00 Mechanical Ventilator 11/22/19 00:00 80 11/22/19 00:00 98.5 80 16 130/90 (103) 99 11/21/19 23:00 83 16 126/88 (101) 98 11/21/19 22:40 90 16 30 11/21/19 22:00 93 16 132/78 (96) 98 11/21/19 21:25 95 18 30 11/21/19 21:00 104 19 142/95 (111) 98 11/21/19 20:50 110 141/93 11/21/19 20:09 106 11/21/19 20:00 30 11/21/19 20:00 Mechanical Ventilator 11/21/19 20:00 98.7 106 16 141/93 (109) 98 11/21/19 19:23 98 22 30 11/21/19 19:00 83 18 146/96 (113) 99 11/21/19 18:00 90 18 145/101 (116) 98 11/21/19 17:15 86 18 100 11/21/19 17:00 84 18 133/88 (103) 98 11/21/19 16:00 30 11/21/19 16:00 Mechanical Ventilator 11/21/19 16:00 98 11/21/19 16:00 98.5 97 18 145/99 (114) 97 11/21/19 15:00 94 19 144/82 (102) 98 Height (Feet): 5 Height (Inches): 10.00 Weight (Pounds): 206 HEENT: mucous membranes moist Respiratory/Chest: normal breath sounds Cardiovascular: regular rhythm Abdomen: no organomegaly Microbiology Date/Time Source Procedure Growth Status 11/21/19 03:05 Blood Not Otherwise Specified Blood Culture - Preliminary Resulted 11/21/19 02:50 Blood Not Otherwise Specified Blood Culture - Preliminary Resulted 11/21/19 17:10 Urine,Clean Catch Urine Culture - Preliminary Resulted 11/21/19 03:05 Urine,Clean Catch Urine Culture - Preliminary Gram Negative Bacillus 1 Resulted Laboratory Tests Test 11/21/19 17:10 11/21/19 20:40 11/22/19 04:00 11/22/19 04:25 Urine Color Pale yellow Urine Appearance Slightly cloudy Urine pH 6 (4.5-8.0) Urine Specific [place] 1.010 (1.005-1.035) Urine Protein 3+ (NEGATIVE) H Urine Glucose (UA) Negative (NEGATIVE) Urine Ketones Negative (NEGATIVE) Urine Blood 4+ (NEGATIVE) H Urine Nitrite Negative (NEGATIVE) Urine Bilirubin Negative (NEGATIVE) Urine Urobilinogen Normal MG/DL (0.0-1.0) Urine Leukocyte Esterase 3+ (NEGATIVE) H Urine RBC 5-10 /HPF (0 - 0) H Urine WBC 20-30 /HPF (0 - 0) H Urine Squamous Epithelial Cells None /LPF (NONE/OCC) Urine Bacteria Moderate /HPF (NONE) H Urine Random Sodium 55 mmol/L (20-110) Lactic Acid Level 0.90 mmol/L (0.4-2.0) 0.90 mmol/L (0.4-2.0) White Blood Count 12.2 K/UL (4.8-10.8) H Red Blood Count 3.21 M/UL (4.70-6.10) L Hemoglobin 9.3 G/DL (14.2-18.0) L Hematocrit 28.7 % (42.0-52.0) L Mean Corpuscular Volume 89 FL (80-99) Mean Corpuscular Hemoglobin 29.1 PG (27.0-31.0) Mean Corpuscular Hemoglobin Concent 32.5 G/DL (32.0-36.0) Red Cell Distribution Width 17.6 % (11.6-14.8) H Platelet Count 338 K/UL (150-450) Mean Platelet Volume 4.3 FL (6.5-10.1) L Neutrophils (%) (Auto) 82.6 % (45.0-75.0) H Lymphocytes (%) (Auto) 6.7 % (20.0-45.0) L Monocytes (%) (Auto) 8.0 % (1.0-10.0) Eosinophils (%) (Auto) 1.8 % (0.0-3.0) Basophils (%) (Auto) 0.9 % (0.0-2.0) Hemoglobin A1c 5.4 % (4.3-6.0) Uric Acid 10.7 MG/DL (2.6-7.2) H Magnesium Level 2.4 MG/DL (1.8-2.4) Iron Level 27 ug/dL (50-175) L Total Iron Binding Capacity 172 ug/dL (250-450) L Percent Iron Saturation 16 % (15-50) Unsaturated Iron Binding 145 ug/dL (112-346) Gamma Glutamyl Transpeptidase 26 U/L (5-85) Troponin I 0.363 ng/mL (0.000-0.056) C-Reactive Protein, Quantitative 11.7 mg/dL (0.00-0.90) H Pro-B-Type Natriuretic Peptide > 04296 pg/mL (0-125) H Lipase 67 U/L (73-393) L Sodium Level 146 MMOL/L (136-145) H Potassium Level 3.8 MMOL/L (3.5-5.1) Chloride Level 108 MMOL/L (98-107) H Carbon Dioxide Level 26 MMOL/L (21-32) Anion Gap 12 mmol/L (5-15) Blood Urea Nitrogen 81 mg/dL (7-18) H Creatinine 6.4 MG/DL (0.55-1.30) H Estimat Glomerular Filtration Rate 10.2 mL/min (>60) Glucose Level 106 MG/DL (74-106) Calcium Level 9.6 MG/DL (8.5-10.1) Phosphorus Level 2.9 MG/DL (2.5-4.9) Ferritin 467 NG/ML (8-388) H Total Bilirubin 0.3 MG/DL (0.2-1.0) Aspartate Amino Transf (AST/SGOT) 20 U/L (15-37) Alanine Aminotransferase (ALT/SGPT) 19 U/L (12-78) Alkaline Phosphatase 51 U/L (46-116) Total Protein 7.5 G/DL (6.4-8.2) Albumin 2.6 G/DL (3.4-5.0) L Globulin 4.9 g/dL Albumin/Globulin Ratio 0.5 (1.0-2.7) L Triglycerides Level 68 MG/DL (30-150) Cholesterol Level 111 MG/DL (< 200) LDL Cholesterol 54 mg/dL (<100) HDL Cholesterol 46 MG/DL (40-60) Cholesterol/HDL Ratio 2.4 (3.3-4.4) L Vitamin B12 Level 560 PG/ML (193-986) Folate 18.7 NG/ML (8.6-58.9) Thyroid Stimulating Hormone (TSH) 3.453 uiU/mL (0.358-3.740) Test 11/22/19 05:00 11/22/19 10:05 Urine Eosinophils None seen (NONE SEEN) Troponin I 0.238 ng/mL (0.000-0.056) Current Medications Medications (Trade) Dose Ordered Sig/Cyndi Route PRN Reason Start Time Stop Time Status Last Admin Dose Admin Acetaminophen (Tylenol) 650 mg Q4H PRN NG Fever 11/21/19 13:00 12/21/19 08:14 Albuterol/ Ipratropium (Albuterol/ Ipratropium) 3 ml Q4H PRN HHN Shortness of Breath 11/21/19 08:15 11/26/19 08:14 Aspirin (ASA) 81 mg DAILY NG 11/23/19 09:00 01/07/20 08:59 Ceftriaxone Sodium 1 gm/ Dextrose 55 ml @ 110 mls/hr Q24H IVPB 11/21/19 23:00 11/28/19 22:59 11/21/19 23:12 Dextrose (Dextrose 50%) 25 ml Q30M PRN IV Hypoglycemia 11/21/19 08:15 02/19/20 08:14 Dextrose (Dextrose 50%) 50 ml Q30M PRN IV Hypoglycemia 11/21/19 08:15 02/19/20 08:14 Dextrose/Sodium Chloride 1,000 ml @ 75 mls/hr [id number] IV 11/21/19 13:00 12/21/19 12:59 11/22/19 03:14 Docusate Sodium (Colace) 100 mg THREE TIMES A DAY NG 11/21/19 13:00 12/21/19 12:59 11/22/19 13:12 Heparin Sodium (Porcine) (Heparin 5000 units/ml) 5,000 units EVERY 12 HOURS SUBQ 11/21/19 09:39 01/05/20 09:38 11/22/19 09:16 Lorazepam (Ativan 2mg/ml 1ml) 2 mg Q4H PRN IV For Anxiety 11/21/19 08:15 11/28/19 08:14 11/22/19 14:09 Metoprolol Tartrate (Lopressor) 50 mg Q12HR NG 11/22/19 21:00 02/19/20 20:59 Morphine Sulfate (Morphine Sulfate) 4 mg Q4H PRN IVP For Pain 11/21/19 08:15 11/28/19 08:14 11/22/19 14:10 Nitroglycerin (Ntg) 1 patch Q24H TDERMAL 11/22/19 11:00 12/22/19 10:59 11/22/19 13:12 Ondansetron HCl (Zofran) 4 mg Q6H PRN IVP Nausea & Vomiting 11/21/19 08:15 12/21/19 08:14 Pantoprazole (Protonix) 40 mg Q12HR IV 11/21/19 21:00 12/21/19 09:38 11/22/19 09:15 Polyethylene Glycol (Miralax) 17 gm DAILYPRN PRN NG Constipation 11/21/19 13:00 12/21/19 08:14 Temazepam (Restoril) 15 mg HSPRN PRN NG Insomnia 11/21/19 13:00 11/28/19 08:14 Mike Hicks MD Nov 22, 2019 15:00
[2019-11-22 15:25] LABS: BASOPHILS % (AUTO) 0.7 % (0.0-2.0); EOSINOPHILS % (AUTO) 1.8 % (0.0-3.0); HEMATOCRIT 24.4 % (42.0-52.0); HEMOGLOBIN 8.1 G/DL (14.2-18.0); LYMPHOCYTES % (AUTO) 7.2 % (20.0-45.0); MEAN CORPUSCULAR VOLUME 90 FL (80-99); MONOCYTES % (AUTO) 7.8 % (1.0-10.0); NEUTROPHILS % (AUTO) 82.4 % (45.0-75.0); PLATELET COUNT 311 K/UL (150-450); RED BLOOD COUNT 2.73 M/UL (4.70-6.10)
--- NOTE | 2019-11-22 15:26 | NUR ---
CASE MANAGEMENT: INITIAL REVIEW 83YR OLD MALE BIBA FROM [facility] CC: DYSPNEA / RESPIRATORY DISTRESS SI:SEPSIS . UTI . RENAL FAILURE . RESPIRATORY FAILURE . PNA 97.7 90 18 111/78 100% MECHANICAL VENTILATOR WBC 11.7 BNP >04670 H/H 10.7/34 K+ 6.1 ANION GAP 19 BUN 87 CREAT 6.7 BG 128 LACTIC ACID 6.5 URIC ACID 11.6 ABG: pH 7.155 pCO2-62.8 pO2 62.6 HCO3 21.6 O2 SAT 87.0. IS:IV ROCEPHIN Q24 IV PROTONIX QD CHEST X-RAY - CHF. Suspected left pleural effusion CHEST X-RAY - CHF CHEST X-RAY - Moderate interstitial edema; Bilateral pleural effusions. VENOUS DUPLEX- NEGATIVE US RENAL- Multiple renal cysts; Medical renal disease X-RAY ABD- good position of the nasogastric tube 2D ECHO-EF 55% \: INTENSIVE CARE UNIT DCP: [facility] WHEN STABLE CASE MANAGEMENT:REVIEW 11/22/19 SI:SEPSIS . UTI . RENAL FAILURE . RESPIRATORY FAILURE . PNA . TROP (+) 97.8 138 18 141/82 99% MECHANICAL VENTILATOR FiO2 30 (((TROP 0.363- 0238))) WBC 12.2 NA+ 146 H/H 9.3/28.7 BUN 81 CREAT 6.4 FERR 467 IS:IV ROCEPHIN QD IV D5@75ML/HR IV PROTONIX BID NTG TD QD IV ATIVAN Q4HR/PRN IV MORPHINE SULFATE Q4HR/PRN CHEST X-RAY - Pulmonary vascular congestion \: INTENSIVE CARE UNIT DCP: [facility] WHEN STABLE PLAN: [facility] CX-PENDING BLOOD CX- PENDING
[2019-11-22] MEDS ORDERED: Heparin 5000 units/ml inj IV SCH (15:30)
[2019-11-22] MEDS ORDERED: Heparin 25,000u/D5W 500ml 500 ML IV SCH (15:30)
--- NOTE | 2019-11-22 16:39 | Internal Med Progress Note ---
Subjective Date of Service: Nov 22, 2019 Physician Name MarilouAbisai Attending Physician Claude Garza MD Current Medications Medications (Trade) Dose Ordered Sig/Cyndi Route PRN Reason Start Time Stop Time Status Last Admin Dose Admin Acetaminophen (Tylenol) 650 mg Q4H PRN NG Fever 11/21/19 13:00 12/21/19 08:14 Albuterol/ Ipratropium (Albuterol/ Ipratropium) 3 ml Q4H PRN HHN Shortness of Breath 11/21/19 08:15 11/26/19 08:14 Aspirin (ASA) 81 mg DAILY NG 11/23/19 09:00 01/07/20 08:59 Ceftriaxone Sodium 1 gm/ Dextrose 55 ml @ 110 mls/hr Q24H IVPB 11/21/19 23:00 11/28/19 22:59 11/21/19 23:12 Dextrose (Dextrose 50%) 25 ml Q30M PRN IV Hypoglycemia 11/21/19 08:15 02/19/20 08:14 Dextrose (Dextrose 50%) 50 ml Q30M PRN IV Hypoglycemia 11/21/19 08:15 02/19/20 08:14 Dextrose/Sodium Chloride 1,000 ml @ 75 mls/hr [id number] IV 11/21/19 13:00 12/21/19 12:59 11/22/19 16:03 Docusate Sodium (Colace) 100 mg THREE TIMES A DAY NG 11/21/19 13:00 12/21/19 12:59 11/22/19 13:12 Heparin Sodium/ Dextrose 500 ml @ 33.638 mls/ hr ADJUST PER PROTOCOL IV 11/22/19 15:30 12/22/19 15:29 11/22/19 16:07 Lorazepam (Ativan 2mg/ml 1ml) 2 mg Q4H PRN IV For Anxiety 11/21/19 08:15 11/28/19 08:14 11/22/19 14:09 Metoprolol Tartrate (Lopressor) 50 mg Q12HR NG 11/22/19 21:00 02/19/20 20:59 Morphine Sulfate (Morphine Sulfate) 4 mg Q4H PRN IVP For Pain 11/21/19 08:15 11/28/19 08:14 11/22/19 14:10 Nitroglycerin (Ntg) 1 patch Q24H TDERMAL 11/22/19 11:00 12/22/19 10:59 11/22/19 13:12 Ondansetron HCl (Zofran) 4 mg Q6H PRN IVP Nausea & Vomiting 11/21/19 08:15 12/21/19 08:14 Pantoprazole (Protonix) 40 mg Q12HR IV 11/21/19 21:00 12/21/19 09:38 11/22/19 09:15 Polyethylene Glycol (Miralax) 17 gm DAILYPRN PRN NG Constipation 11/21/19 13:00 12/21/19 08:14 Temazepam (Restoril) 15 mg HSPRN PRN NG Insomnia 11/21/19 13:00 11/28/19 08:14 Vancomycin HCl (Vanco rx to dose) 1 ea DAILY PRN MISC Per rx protocol 11/22/19 14:45 12/22/19 14:44 Vancomycin/Sodium Chloride 275 ml @ 183.333 mls/hr ONCE IVPB 11/22/19 18:00 11/22/19 20:00 Allergies: Coded Allergies: LISINOPRIL (Verified Allergy, Unknown, 11/21/19) SIMVASTATIN (Verified Allergy, Unknown, 11/21/19) TERAZOSIN (Verified Allergy, Unknown, 11/21/19) ROS Limited/Unobtainable: Yes Subjective 83 YO M admitted with respiratory failure. Cover for [facility] Franc-DR Garza. Intubated and sedated. ICU Objective Last Vital Signs Date Time Temp Pulse Resp B/P (MAP) Pulse Ox O2 Delivery O2 Flow Rate FiO2 11/22/19 16:00 Mechanical Ventilator 11/22/19 16:00 98.3 85 19 114/83 (93) 95 11/22/19 16:00 30 Laboratory Tests Test 11/21/19 17:10 11/21/19 20:40 11/22/19 04:00 11/22/19 04:25 Urine Color Pale yellow Urine Appearance Slightly cloudy Urine pH 6 (4.5-8.0) Urine Specific Dumas 1.010 (1.005-1.035) Urine Protein 3+ (NEGATIVE) H Urine Glucose (UA) Negative (NEGATIVE) Urine Ketones Negative (NEGATIVE) Urine Blood 4+ (NEGATIVE) H Urine Nitrite Negative (NEGATIVE) Urine Bilirubin Negative (NEGATIVE) Urine Urobilinogen Normal MG/DL (0.0-1.0) Urine Leukocyte Esterase 3+ (NEGATIVE) H Urine RBC 5-10 /HPF (0 - 0) H Urine WBC 20-30 /HPF (0 - 0) H Urine Squamous Epithelial Cells None /LPF (NONE/OCC) Urine Bacteria Moderate /HPF (NONE) H Urine Random Sodium 55 mmol/L (20-110) Lactic Acid Level 0.90 mmol/L (0.4-2.0) 0.90 mmol/L (0.4-2.0) White Blood Count 12.2 K/UL (4.8-10.8) H Red Blood Count 3.21 M/UL (4.70-6.10) L Hemoglobin 9.3 G/DL (14.2-18.0) L Hematocrit 28.7 % (42.0-52.0) L Mean Corpuscular Volume 89 FL (80-99) Mean Corpuscular Hemoglobin 29.1 PG (27.0-31.0) Mean Corpuscular Hemoglobin Concent 32.5 G/DL (32.0-36.0) Red Cell Distribution Width 17.6 % (11.6-14.8) H Platelet Count 338 K/UL (150-450) Mean Platelet Volume 4.3 FL (6.5-10.1) L Neutrophils (%) (Auto) 82.6 % (45.0-75.0) H Lymphocytes (%) (Auto) 6.7 % (20.0-45.0) L Monocytes (%) (Auto) 8.0 % (1.0-10.0) Eosinophils (%) (Auto) 1.8 % (0.0-3.0) Basophils (%) (Auto) 0.9 % (0.0-2.0) Hemoglobin A1c 5.4 % (4.3-6.0) Uric Acid 10.7 MG/DL (2.6-7.2) H Magnesium Level 2.4 MG/DL (1.8-2.4) Iron Level 27 ug/dL (50-175) L Total Iron Binding Capacity 172 ug/dL (250-450) L Percent Iron Saturation 16 % (15-50) Unsaturated Iron Binding 145 ug/dL (112-346) Gamma Glutamyl Transpeptidase 26 U/L (5-85) Troponin I 0.363 ng/mL (0.000-0.056) C-Reactive Protein, Quantitative 11.7 mg/dL (0.00-0.90) H Pro-B-Type Natriuretic Peptide > 91960 pg/mL (0-125) H Lipase 67 U/L (73-393) L Sodium Level 146 MMOL/L (136-145) H Potassium Level 3.8 MMOL/L (3.5-5.1) Chloride Level 108 MMOL/L (98-107) H Carbon Dioxide Level 26 MMOL/L (21-32) Anion Gap 12 mmol/L (5-15) Blood Urea Nitrogen 81 mg/dL (7-18) H Creatinine 6.4 MG/DL (0.55-1.30) H Estimat Glomerular Filtration Rate 10.2 mL/min (>60) Glucose Level 106 MG/DL (74-106) Calcium Level 9.6 MG/DL (8.5-10.1) Phosphorus Level 2.9 MG/DL (2.5-4.9) Ferritin 467 NG/ML (8-388) H Total Bilirubin 0.3 MG/DL (0.2-1.0) Aspartate Amino Transf (AST/SGOT) 20 U/L (15-37) Alanine Aminotransferase (ALT/SGPT) 19 U/L (12-78) Alkaline Phosphatase 51 U/L (46-116) Total Protein 7.5 G/DL (6.4-8.2) Albumin 2.6 G/DL (3.4-5.0) L Globulin 4.9 g/dL Albumin/Globulin Ratio 0.5 (1.0-2.7) L Triglycerides Level 68 MG/DL (30-150) Cholesterol Level 111 MG/DL (< 200) LDL Cholesterol 54 mg/dL (<100) HDL Cholesterol 46 MG/DL (40-60) Cholesterol/HDL Ratio 2.4 (3.3-4.4) L Vitamin B12 Level 560 PG/ML (193-986) Folate 18.7 NG/ML (8.6-58.9) Thyroid Stimulating Hormone (TSH) 3.453 uiU/mL (0.358-3.740) Test 11/22/19 05:00 11/22/19 10:05 11/22/19 15:00 Urine Eosinophils None seen (NONE SEEN) Troponin I 0.238 ng/mL (0.000-0.056) White Blood Count 11.0 K/UL (4.8-10.8) H Red Blood Count 2.73 M/UL (4.70-6.10) L Hemoglobin 8.1 G/DL (14.2-18.0) L Hematocrit 24.4 % (42.0-52.0) L Mean Corpuscular Volume 90 FL (80-99) Mean Corpuscular Hemoglobin 29.6 PG (27.0-31.0) Mean Corpuscular Hemoglobin Concent 33.0 G/DL (32.0-36.0) Red Cell Distribution Width 18.0 % (11.6-14.8) H Platelet Count 311 K/UL (150-450) Mean Platelet Volume 4.0 FL (6.5-10.1) L Neutrophils (%) (Auto) 82.4 % (45.0-75.0) H Lymphocytes (%) (Auto) 7.2 % (20.0-45.0) L Monocytes (%) (Auto) 7.8 % (1.0-10.0) Eosinophils (%) (Auto) 1.8 % (0.0-3.0) Basophils (%) (Auto) 0.7 % (0.0-2.0) Activated Partial Thromboplast Time 38 SEC (23-33) H Microbiology Date/Time Source Procedure Growth Status 11/21/19 03:05 Blood Not Otherwise Specified Blood Culture - Preliminary Resulted 11/21/19 02:50 Blood Not Otherwise Specified Blood Culture - Preliminary Resulted 11/21/19 17:10 Urine,Clean Catch Urine Culture - Preliminary Resulted 11/21/19 03:05 Urine,Clean Catch Urine Culture - Preliminary Gram Negative Bacillus 1 Resulted Intake and Output 11/21/19 11/22/19 19:00 07:00 Intake Total 650 ml 1270 ml Output Total 410 ml 625 ml Balance 240 ml 645 ml Free Water 140 ml IV Total 435 ml 955 ml Tube Feeding 35 ml 315 ml Other 40 ml Output Urine Total 410 ml 625 ml Objective PHYSICAL EXAMINATION: GENERAL: The patient is well-developed, well-nourished male, who is intubated and sedated in the intensive care unit. HEENT: Eyes, pupils are equal and responsive to light and accommodation. Extraocular movements are intact. NECK: Supple without lymphadenopathy. CHEST: Mech vent; Bilateral expiratory air sounds, otherwise clear to auscultation without rales. CARDIOVASCULAR: Regular rhythm and rate. S1 and S2 normal without murmurs, rubs, or gallops. ABDOMEN: Soft, nontender, and nondistended. Positive bowel sounds. No evidence of hepatosplenomegaly. Currently, no rebound or guarding noted. EXTREMITIES: Negative for clubbing, cyanosis, or edema. RECTAL/GENITAL: Not performed. NEUROLOGIC: Cranial nerves II through XII are grossly intact without focal deficits. Motor strength is 5/5 bilaterally. Deep tendon reflexes are 2+ plantar. Assessment/Plan Assessment/Plan ASSESSMENT: This is an 83-year-old male. 1. Respiratory failure. 2. Congestive heart failure. 3. Atrial fibrillation. 4. Altered mental status. 5. Urinary tract infection. 6. Renal failure. 7. Hypertension. 8. Alzheimer's dementia. 9. Benign prostatic hypertrophy. TREATMENT: 1. Congestive heart failure. A Cardiology consultation has been obtained with Dr. Vasu Zaidi. We will follow recommendations of Cardiology. The patient is currently receiving intravenous Lasix. 2. Respiratory failure. A Pulmonary consultation has been obtained with Dr. Susannah Hightower. The patient is currently intubated in the intensive care unit. We will follow recommendations of Pulmonary. ABX=vanco and rocephin per ID=Dr Hicks 3. Atrial fibrillation as above. A Cardiology consultation has been obtained with Dr. Vasu Zaiid. 4. Renal failure. A Nephrology consultation has been obtained with Dr. Ellison. We will follow recommendations of Nephrology. 5. Hypertension. The patient is currently hypotensive in the intensive care unit. 6. Alzheimer's dementia. 7. Benign prostatic hypertrophy. Abisai Zamarripa MD Nov 22, 2019 16:39
--- NOTE | 2019-11-22 16:45 | NUR ---
NURSE NOTES: Patient started in heparin drip at 18units/kg/hr at 33.68ml/hr, next ptt to be done at 1999.
--- NOTE | 2019-11-22 17:35 | NUR ---
NURSE NOTES: Dr. rausch updated on patient blood cultures results and that patient was agitated and was unable to be taken to CT scan.
[2019-11-22] MEDS ORDERED: Vancomycin 1.25gm/NS Premix q24h IVPB SCH (18:00)
--- NOTE | 2019-11-22 19:27 | NUR ---
HAND-OFF: Report given to Ernie. LYNCH.
--- NOTE | 2019-11-22 19:30 | NUR ---
NURSE NOTES: Received pt in no acute distress, asleep at this time, open eyes to name. Confused, impulsive when awake; bilat soft wrist restraints in place. Remains orally intubated with #7.5 ETT placed over left lip at 25cm; secretions thin clear via ETT; chest sounds with scattered rhonchi. Tolerating current vent parameters; fiO2 .30, saturating 93-95%. OGT in place, TF with Jevity 1.2 running to goal of 30ml/h with 0 residuals. Abd soft, no BM at this time. PIV site on LFA intact with IVF of D51/2NS infusing at 75ml/. Heparin gtt infuses on right hand at 18units/kg/h. FC patent, urine cloudy with strong odor. Sacral wound dressing dry and intact. Will monitor for any signs of bleeding.Afebrile, BP stable, cardiac scope shows atrial fib.
[2019-11-22] MEDS: Metoprolol Tartrate 50mg tab NG SCH (20:43)
--- NOTE | 2019-11-22 21:30 | NUR ---
NURSE NOTES: Remains calm, asleep with bilat soft wrist restraints on. VSS. Still on afib via case monitor. BP stable.
[2019-11-22] MEDS: cefTRIAXone 1 GM in D5W 55 ML IVPB SCH (22:35)
--- NOTE | 2019-11-22 22:45 | NUR ---
NURSE NOTES: PTT result >150. Informed [employer]. Per protocol, stop infusion for 60minutes then restart with the new rate of 14units/kg/h, next timed PTT 0545 11/22
--- NOTE | 2019-11-22 23:39 | NUR ---
HAND-OFF: Report given to Krunal Cardenas RN for continuity of care.
[2019-11-22] MEDS: Heparin 25,000u/D5W 500ml 500 ML IV SCH (23:42)
--- NOTE | 2019-11-22 23:45 | NUR ---
NURSE NOTES: Pl see physical assesment- heparin drip now changed to 14u/kg/hr. per Heparin protocol.
--- NOTE | 2019-11-22 23:48 | NUR ---
NURSE NOTES: Ativan 2mg ivp was given due to pts anxiety.
[2019-11-23] VITALS (24 sets, daily range): BP systolic 123–155; BP diastolic 75–102
--- NOTE | 2019-11-23 02:00 | NUR ---
NURSE NOTES: Suctioned tk beige to blood tinged secretions moderate in amt. 02 sat >95%
--- NOTE | 2019-11-23 04:00 | NUR ---
NURSE NOTES: Complete bed bth with bed changed was done. Sacral drsg was changed. Wound appeared clean and dry.
[2019-11-23] MEDS: D5 1/2NS 1,000 ML IV SCH ×2 (05:10→18:00)
--- NOTE | 2019-11-23 05:45 | NUR ---
NURSE NOTES: PTT was drawn awaiting for result
--- NOTE | 2019-11-23 06:00 | NUR ---
NURSE NOTES: Bilateral soft wrist restraints maintained for safety.. Bp remained stable afebrile.
[2019-11-23 06:16] LABS: EOSINOPHILS % (AUTO) 3.6 % (0.0-3.0); HEMATOCRIT 26.6 % (42.0-52.0); HEMOGLOBIN 8.7 G/DL (14.2-18.0); LYMPHOCYTES % (AUTO) 7.2 % (20.0-45.0); MEAN CORPUSCULAR VOLUME 90 FL (80-99); MONOCYTES % (AUTO) 7.8 % (1.0-10.0); NEUTROPHILS % (AUTO) 80.3 % (45.0-75.0); PLATELET COUNT 341 K/UL (150-450); RED BLOOD COUNT 2.97 M/UL (4.70-6.10); RED CELL DISTRIBUTION WIDTH 17.4 % (11.6-14.8); WHITE BLOOD COUNT 12.2 K/UL (4.8-10.8)
--- NOTE | 2019-11-23 06:46 | NUR ---
RESPIRATORY NOTE: Received pt on ETT size 7.5@ 25cm lip line, secured by anchor fasts. Pt is on the vent with the settings: AC 16-550ml-30%FiO2- no peep. Pt is not in distress at this time. OPA in place to prevent tub biting. Alarms are set and audible, vent is plugged into the red outlet, ambu bag is at bedside. Will continue to monitor.
--- NOTE | 2019-11-23 06:52 | NUR ---
NURSE NOTES: PTT 92 secs= no change
--- NOTE | 2019-11-23 07:00 | NUR ---
NURSE NOTES: Gael called and was aware with ptt results. no changed in rate. ptt in am.
[2019-11-23 07:07] LABS: ALANINE AMINOTRANSFERASE 16 U/L (12-78); ALBUMIN 2.4 G/DL (3.4-5.0); ALBUMIN/GLOBULIN RATIO 0.5 (1.0-2.7); ALKALINE PHOSPHATASE 49 U/L (46-116); ANION GAP 13 mmol/L (5-15); ASPARTATE AMINO TRANSFERASE 18 U/L (15-37); BILIRUBIN,TOTAL 0.3 MG/DL (0.2-1.0); BLOOD UREA NITROGEN 71 mg/dL (7-18); CALCIUM 8.4 MG/DL (8.5-10.1); CARBON DIOXIDE 25 MMOL/L (21-32); CHLORIDE 107 MMOL/L (98-107); PHOSPHORUS 2.3 MG/DL (2.5-4.9); POTASSIUM 3.6 MMOL/L (3.5-5.1); SODIUM 145 MMOL/L (136-145)
--- NOTE | 2019-11-23 07:34 | NUR ---
HAND-OFF: Report given to Lucrecia LYNCH for continuity of care.
--- NOTE | 2019-11-23 08:44 | NUR ---
CASE MANAGEMENT:REVIEW 11/23/19 SI:ATRIAL FIBRILLATION . SEPSIS . UTI . RENAL FAILURE . TROP (+) . RESPIRATORY FAILURE . PNA . CHF MULTIPLE RENAL CYST . +VRE 98.2 105 21 129/93 95% MECHANICAL VENTILATOR FiO2 30 (((TROP 0.109))) BNP > 27385 BUN 71 CREAT 6.0 BG 125 CA+ 10.2 CA+8.4 PHOS 2.3 NA+ 146 H/H 8.7/26.6 PTT 92 IS:HEPARIN GTT IV ROCEPHIN QD IV D5@75ML/HR IV PROTONIX BID NTG TD QD IV ATIVAN Q4HR/PRN IV MORPHINE SULFATE Q4HR/PRN \: INTENSIVE CARE UNIT DCP: MITCH CARE WHEN STABLE PLAN: SPUTUM CX-PENDING BLOOD CX- PENDING
[2019-11-23] MEDS: Pantoprazole Inj IV SCH ×2 (09:05→21:45)
[2019-11-23] MEDS: Docusate 100mg/10ml Liq NG SCH ×3 (09:05→17:54)
[2019-11-23] MEDS: Aspirin Baby 81mg NG SCH (09:05)
[2019-11-23] MEDS: Metoprolol Tartrate 50mg tab NG SCH ×2 (09:07→21:45)
--- NOTE | 2019-11-23 09:10 | NUR ---
RESPIRATORY NOTE: Placed pt on CPAP PS 8- 30%-no peep. Pt is tolerating well. No resp distress noted. SYED Singer at bedside and aware. OPA removed. Will continue to monitor
--- NOTE | 2019-11-23 09:24 | NUR ---
RESPIRATORY NOTE: Placed pt back on AC mode due to resp distress. Pt was labor breathing with accessory muscle used. SYED Singer at bedside and aware. Will continue to monitor.
[2019-11-23] MEDS: Nitroglycerin Patch 0.4mg TDERMAL SCH (10:24)
[2019-11-23] MEDS: LORazepam Inj 2mg/ml 1ml IV PRN (10:25)
[2019-11-23] MEDS: Heparin 25,000u/D5W 500ml 500 ML IV SCH (10:26)
--- NOTE | 2019-11-23 11:59 | Pulmonolgy Critical Care Note ---
Critical Care - Asmt/Plan Problems: (1) Acute hypercapnic respiratory failure (2) Paroxysmal A-fib (3) Anemia, chronic renal failure (4) Acute on chronic renal insufficiency (5) Chronic hepatitis (6) Moderate pulmonary arterial systolic hypertension (7) Left ventricular ejection fraction greater than or equal to 40 percent (8) History of hypertension (9) Alzheimer's dementia (10) BPH (benign prostatic hyperplasia) Respiratory: monitor respiratory rate, adjust FIO2, CXR Cardiac: continue pressors, continue to monitor HR/BP Renal: F/U I&O, check electrolytes Infectious Disease: check cultures Gastrointestinal: continue feedings/current rate Endocrine: monitor blood sugar Hematologic: transfuse if hgb<8.5 Neurologic: PRN Ativan, keep patient comfortable Prophylaxis: Protonix, Heparin Time Spent (Minutes): 40 Notes Reviewed: survey technologist, cardio, renal Critical Care - Objective Last 24 Hour Vital Signs Date Time Temp Pulse Resp B/P (MAP) Pulse Ox O2 Delivery O2 Flow Rate FiO2 11/23/19 11:00 77 17 134/86 (102) 11/23/19 10:42 78 16 30 11/23/19 10:24 136/90 11/23/19 10:00 95 20 139/91 (107) 96 11/23/19 09:24 106 25 30 11/23/19 09:10 94 25 30 30 11/23/19 09:10 99 11/23/19 09:07 100 143/93 11/23/19 09:00 95 23 143/93 (110) 96 11/23/19 08:00 92 22 148/100 (116) 96 11/23/19 07:00 99.1 88 20 136/81 (99) 96 11/23/19 06:46 98 16 30 11/23/19 06:30 81 20 11/23/19 06:00 88 19 137/80 (99) 95 11/23/19 05:34 94 20 30 11/23/19 05:00 91 19 129/83 (98) 95 11/23/19 04:03 105 21 30 11/23/19 04:00 30 11/23/19 04:00 98.2 98 21 129/83 (98) 95 11/23/19 04:00 98 11/23/19 04:00 Mechanical Ventilator 11/23/19 03:00 103 23 145/97 (113) 94 11/23/19 02:00 76 18 130/89 (103) 95 11/23/19 01:00 80 19 131/83 (99) 95 11/23/19 00:45 94 20 30 11/23/19 00:00 98.6 91 22 128/75 (92) 93 11/23/19 00:00 Mechanical Ventilator 11/23/19 00:00 30 11/23/19 00:00 82 11/22/19 23:30 92 19 30 11/22/19 23:00 84 22 135/89 (104) 94 11/22/19 22:00 81 22 127/83 (98) 94 11/22/19 21:24 91 18 30 11/22/19 21:00 86 22 133/88 (103) 94 11/22/19 20:43 95 130/83 11/22/19 20:00 30 11/22/19 20:00 86 11/22/19 20:00 Mechanical Ventilator 11/22/19 20:00 98.4 90 22 130/83 (99) 94 11/22/19 19:30 90 17 30 11/22/19 19:00 83 16 127/82 (97) 94 11/22/19 18:00 95 16 127/84 (98) 94 11/22/19 17:00 90 20 30 11/22/19 17:00 96 16 124/84 (97) 100 11/22/19 16:00 Mechanical Ventilator 11/22/19 16:00 98.3 85 19 114/83 (93) 95 11/22/19 16:00 30 11/22/19 16:00 76 11/22/19 15:20 74 16 30 11/22/19 15:00 76 18 115/75 (88) 96 11/22/19 14:00 85 18 114/70 (85) 96 11/22/19 13:12 139/85 11/22/19 13:00 73 18 139/85 (103) 96 11/22/19 12:43 82 17 30 11/22/19 12:00 99.1 85 19 132/81 (98) 95 11/22/19 12:00 Mechanical Ventilator 11/22/19 12:00 30 Status: sedated Condition: grave Neck: full ROM Lungs: clear Heart: HR/BP stable Abdomen: soft, active bowel sounds Extremities: no C/C/E Decubiti: stage Micro: Microbiology Date/Time Source Procedure Growth Status 11/21/19 03:05 Blood Not Otherwise Specified Blood Culture - Preliminary Gram Positive Cocci Resulted 11/21/19 02:50 Blood Not Otherwise Specified Blood Culture - Preliminary Gram Positive Cocci Resulted 11/21/19 02:10 Nasal Nares MRSA Culture - Final Staphylococcus Aureus - Mrsa Complete 11/21/19 17:10 Urine,Clean Catch Urine Culture - Preliminary Resulted 11/21/19 03:05 Urine,Clean Catch Urine Culture - Preliminary Gram Negative Bacillus 1 Resulted 11/21/19 02:10 Rectum - Final NO CARBAPENEM-RESISTANT ENTEROBACTERI... Complete 11/21/19 02:10 Rectum VRE Culture - Final Enterococcus Faecium - Vre Complete Critical Care - Subjective ROS Limited/Unobtainable: No Condition: critical EKG Rhythm: Sinus Rhythm FI02: 30 Vent Support Breath Rate: 16 Vent Support Mode: AC Vent Tidal Volume: 550 Sputum Amount: Scant PEEP: 0.0 PIP: 28 Tube Feeding Amount: 30 I&O: Intake and Output 11/22/19 11/23/19 19:00 07:00 Intake Total 1624.247 ml 1659.055 ml Output Total 775 ml 565 ml Balance 849.247 ml 1094.055 ml Free Water 50 ml 50 ml IV Total 1184.247 ml 1249.055 ml Tube Feeding 360 ml 360 ml Other 30 ml Output Urine Total 775 ml 565 ml # Bowel Movements 1 1 ET-Tube: 7.5 ET Position: 25 Labs: Laboratory Tests Test 11/22/19 15:00 11/22/19 22:01 11/23/19 05:30 11/23/19 08:50 White Blood Count 11.0 K/UL (4.8-10.8) H 12.2 K/UL (4.8-10.8) H Red Blood Count 2.73 M/UL (4.70-6.10) L 2.97 M/UL (4.70-6.10) L Hemoglobin 8.1 G/DL (14.2-18.0) L 8.7 G/DL (14.2-18.0) L Hematocrit 24.4 % (42.0-52.0) L 26.6 % (42.0-52.0) L Mean Corpuscular Volume 90 FL (80-99) 90 FL (80-99) Mean Corpuscular Hemoglobin 29.6 PG (27.0-31.0) 29.2 PG (27.0-31.0) Mean Corpuscular Hemoglobin Concent 33.0 G/DL (32.0-36.0) 32.6 G/DL (32.0-36.0) Red Cell Distribution Width 18.0 % (11.6-14.8) H 17.4 % (11.6-14.8) H Platelet Count 311 K/UL (150-450) 341 K/UL (150-450) Mean Platelet Volume 4.0 FL (6.5-10.1) L 4.5 FL (6.5-10.1) L Neutrophils (%) (Auto) 82.4 % (45.0-75.0) H 80.3 % (45.0-75.0) H Lymphocytes (%) (Auto) 7.2 % (20.0-45.0) L 7.2 % (20.0-45.0) L Monocytes (%) (Auto) 7.8 % (1.0-10.0) 7.8 % (1.0-10.0) Eosinophils (%) (Auto) 1.8 % (0.0-3.0) 3.6 % (0.0-3.0) H Basophils (%) (Auto) 0.7 % (0.0-2.0) 1.0 % (0.0-2.0) Activated Partial Thromboplast Time 38 SEC (23-33) H > 150 SEC (23-33) *H 92 SEC (23-33) H Sodium Level 145 MMOL/L (136-145) Potassium Level 3.6 MMOL/L (3.5-5.1) Chloride Level 107 MMOL/L (98-107) Carbon Dioxide Level 25 MMOL/L (21-32) Anion Gap 13 mmol/L (5-15) Blood Urea Nitrogen 71 mg/dL (7-18) H Creatinine 6.0 MG/DL (0.55-1.30) H Estimat Glomerular Filtration Rate 10.9 mL/min (>60) Glucose Level 125 MG/DL (74-106) H Uric Acid 10.2 MG/DL (2.6-7.2) H Calcium Level 8.4 MG/DL (8.5-10.1) L Phosphorus Level 2.3 MG/DL (2.5-4.9) L Magnesium Level 2.1 MG/DL (1.8-2.4) Total Bilirubin 0.3 MG/DL (0.2-1.0) Aspartate Amino Transf (AST/SGOT) 18 U/L (15-37) Alanine Aminotransferase (ALT/SGPT) 16 U/L (12-78) Alkaline Phosphatase 49 U/L (46-116) Troponin I 0.109 ng/mL (0.000-0.056) C-Reactive Protein, Quantitative 13.2 mg/dL (0.00-0.90) H Pro-B-Type Natriuretic Peptide > 72923 pg/mL (0-125) H Total Protein 6.9 G/DL (6.4-8.2) Albumin 2.4 G/DL (3.4-5.0) L Globulin 4.5 g/dL Albumin/Globulin Ratio 0.5 (1.0-2.7) L Random Vancomycin Level 20.6 ug/mL Susannah Hightower MD Nov 23, 2019 11:59
--- NOTE | 2019-11-23 12:40 | Infectious Diseases Prog Note ---
Assessment/Plan Assessment/Plan ASSESSMENT: This is an 83-year-old male. Afebrile Nl WBC Doubt Pneum (at this time) - Respiratory failure: m/l 2/2 CHF, elevated BNP) Probable UTI - UCX : GNR GPC Bacteremia - 2D Echo : No Veg Congestive heart failure. Atrial fibrillation. Altered mental status. Urinary tract infection. Renal failure. Hypertension. Alzheimer's dementia. BPH P: cont IV Vanco # 2 Cont pt on IV Rocephin # 3 Monitor CBC, CMP Monitor Cx ( B, U, Sp ) Monitor CXR Rsp support Chest CT Bl cx Rpt Subjective Allergies: Coded Allergies: LISINOPRIL (Verified Allergy, Unknown, 11/21/19) SIMVASTATIN (Verified Allergy, Unknown, 11/21/19) TERAZOSIN (Verified Allergy, Unknown, 11/21/19) Subjective on vent Objective Vital Signs Last 24 Hour Vital Signs Date Time Temp Pulse Resp B/P (MAP) Pulse Ox O2 Delivery O2 Flow Rate FiO2 11/23/19 12:00 99 11/23/19 12:00 Mechanical Ventilator 11/23/19 11:00 77 17 134/86 (102) 11/23/19 10:42 78 16 30 11/23/19 10:24 136/90 11/23/19 10:00 95 20 139/91 (107) 96 11/23/19 09:30 30 11/23/19 09:24 106 25 30 11/23/19 09:10 94 25 30 30 11/23/19 09:10 99 11/23/19 09:07 100 143/93 11/23/19 09:00 95 23 143/93 (110) 96 11/23/19 08:00 Mechanical Ventilator 11/23/19 08:00 92 22 148/100 (116) 96 11/23/19 08:00 30 11/23/19 07:00 99.1 88 20 136/81 (99) 96 11/23/19 06:46 98 16 30 11/23/19 06:30 81 20 11/23/19 06:00 88 19 137/80 (99) 95 11/23/19 05:34 94 20 30 11/23/19 05:00 91 19 129/83 (98) 95 11/23/19 04:03 105 21 30 11/23/19 04:00 30 11/23/19 04:00 98.2 98 21 129/83 (98) 95 11/23/19 04:00 98 11/23/19 04:00 Mechanical Ventilator 11/23/19 03:00 103 23 145/97 (113) 94 11/23/19 02:00 76 18 130/89 (103) 95 11/23/19 01:00 80 19 131/83 (99) 95 11/23/19 00:45 94 20 30 11/23/19 00:00 98.6 91 22 128/75 (92) 93 11/23/19 00:00 Mechanical Ventilator 11/23/19 00:00 30 11/23/19 00:00 82 11/22/19 23:30 92 19 30 11/22/19 23:00 84 22 135/89 (104) 94 11/22/19 22:00 81 22 127/83 (98) 94 11/22/19 21:24 91 18 30 11/22/19 21:00 86 22 133/88 (103) 94 11/22/19 20:43 95 130/83 11/22/19 20:00 30 11/22/19 20:00 86 11/22/19 20:00 Mechanical Ventilator 11/22/19 20:00 98.4 90 22 130/83 (99) 94 11/22/19 19:30 90 17 30 11/22/19 19:00 83 16 127/82 (97) 94 11/22/19 18:00 95 16 127/84 (98) 94 11/22/19 17:00 90 20 30 11/22/19 17:00 96 16 124/84 (97) 100 11/22/19 16:00 Mechanical Ventilator 11/22/19 16:00 98.3 85 19 114/83 (93) 95 11/22/19 16:00 30 11/22/19 16:00 76 11/22/19 15:20 74 16 30 11/22/19 15:00 76 18 115/75 (88) 96 11/22/19 14:00 85 18 114/70 (85) 96 11/22/19 13:12 139/85 11/22/19 13:00 73 18 139/85 (103) 96 11/22/19 12:43 82 17 30 Height (Feet): 5 Height (Inches): 10.00 Weight (Pounds): 210 HEENT: mucous membranes moist Respiratory/Chest: no respiratory distress Cardiovascular: regularly irregular Abdomen: non distended Microbiology Date/Time Source Procedure Growth Status 11/21/19 03:05 Blood Not Otherwise Specified Blood Culture - Preliminary Gram Positive Cocci Resulted 11/21/19 02:50 Blood Not Otherwise Specified Blood Culture - Preliminary Gram Positive Cocci Resulted 11/21/19 02:10 Nasal Nares MRSA Culture - Final Staphylococcus Aureus - Mrsa Complete 11/21/19 17:10 Urine,Clean Catch Urine Culture - Preliminary Resulted 11/21/19 03:05 Urine,Clean Catch Urine Culture - Preliminary Gram Negative Bacillus 1 Resulted 11/21/19 02:10 Rectum - Final NO CARBAPENEM-RESISTANT ENTEROBACTERI... Complete 11/21/19 02:10 Rectum VRE Culture - Final Enterococcus Faecium - Vre Complete Laboratory Tests Test 11/22/19 15:00 11/22/19 22:01 11/23/19 05:30 11/23/19 08:50 White Blood Count 11.0 K/UL (4.8-10.8) H 12.2 K/UL (4.8-10.8) H Red Blood Count 2.73 M/UL (4.70-6.10) L 2.97 M/UL (4.70-6.10) L Hemoglobin 8.1 G/DL (14.2-18.0) L 8.7 G/DL (14.2-18.0) L Hematocrit 24.4 % (42.0-52.0) L 26.6 % (42.0-52.0) L Mean Corpuscular Volume 90 FL (80-99) 90 FL (80-99) Mean Corpuscular Hemoglobin 29.6 PG (27.0-31.0) 29.2 PG (27.0-31.0) Mean Corpuscular Hemoglobin Concent 33.0 G/DL (32.0-36.0) 32.6 G/DL (32.0-36.0) Red Cell Distribution Width 18.0 % (11.6-14.8) H 17.4 % (11.6-14.8) H Platelet Count 311 K/UL (150-450) 341 K/UL (150-450) Mean Platelet Volume 4.0 FL (6.5-10.1) L 4.5 FL (6.5-10.1) L Neutrophils (%) (Auto) 82.4 % (45.0-75.0) H 80.3 % (45.0-75.0) H Lymphocytes (%) (Auto) 7.2 % (20.0-45.0) L 7.2 % (20.0-45.0) L Monocytes (%) (Auto) 7.8 % (1.0-10.0) 7.8 % (1.0-10.0) Eosinophils (%) (Auto) 1.8 % (0.0-3.0) 3.6 % (0.0-3.0) H Basophils (%) (Auto) 0.7 % (0.0-2.0) 1.0 % (0.0-2.0) Activated Partial Thromboplast Time 38 SEC (23-33) H > 150 SEC (23-33) *H 92 SEC (23-33) H Sodium Level 145 MMOL/L (136-145) Potassium Level 3.6 MMOL/L (3.5-5.1) Chloride Level 107 MMOL/L (98-107) Carbon Dioxide Level 25 MMOL/L (21-32) Anion Gap 13 mmol/L (5-15) Blood Urea Nitrogen 71 mg/dL (7-18) H Creatinine 6.0 MG/DL (0.55-1.30) H Estimat Glomerular Filtration Rate 10.9 mL/min (>60) Glucose Level 125 MG/DL (74-106) H Uric Acid 10.2 MG/DL (2.6-7.2) H Calcium Level 8.4 MG/DL (8.5-10.1) L Phosphorus Level 2.3 MG/DL (2.5-4.9) L Magnesium Level 2.1 MG/DL (1.8-2.4) Total Bilirubin 0.3 MG/DL (0.2-1.0) Aspartate Amino Transf (AST/SGOT) 18 U/L (15-37) Alanine Aminotransferase (ALT/SGPT) 16 U/L (12-78) Alkaline Phosphatase 49 U/L (46-116) Troponin I 0.109 ng/mL (0.000-0.056) C-Reactive Protein, Quantitative 13.2 mg/dL (0.00-0.90) H Pro-B-Type Natriuretic Peptide > 97852 pg/mL (0-125) H Total Protein 6.9 G/DL (6.4-8.2) Albumin 2.4 G/DL (3.4-5.0) L Globulin 4.5 g/dL Albumin/Globulin Ratio 0.5 (1.0-2.7) L Random Vancomycin Level 20.6 ug/mL Current Medications Medications (Trade) Dose Ordered Sig/Cyndi Route PRN Reason Start Time Stop Time Status Last Admin Dose Admin Acetaminophen (Tylenol) 650 mg Q4H PRN NG Fever 11/21/19 13:00 12/21/19 08:14 Albuterol/ Ipratropium (Albuterol/ Ipratropium) 3 ml Q4H PRN HHN Shortness of Breath 11/21/19 08:15 11/26/19 08:14 Aspirin (ASA) 81 mg DAILY NG 11/23/19 09:00 01/07/20 08:59 11/23/19 09:05 Ceftriaxone Sodium 1 gm/ Dextrose 55 ml @ 110 mls/hr Q24H IVPB 11/21/19 23:00 11/28/19 22:59 11/22/19 22:35 Dextrose (Dextrose 50%) 25 ml Q30M PRN IV Hypoglycemia 11/21/19 08:15 02/19/20 08:14 Dextrose (Dextrose 50%) 50 ml Q30M PRN IV Hypoglycemia 11/21/19 08:15 02/19/20 08:14 Dextrose/Sodium Chloride 1,000 ml @ 75 mls/hr [id number] IV 11/21/19 13:00 12/21/19 12:59 11/23/19 05:10 Docusate Sodium (Colace) 100 mg THREE TIMES A DAY NG 11/21/19 13:00 12/21/19 12:59 11/23/19 09:05 Heparin Sodium/ Dextrose 500 ml @ 26.163 mls/ hr ADJUST PER PROTOCOL IV 11/22/19 23:45 12/22/19 23:44 11/23/19 10:26 Lorazepam (Ativan 2mg/ml 1ml) 2 mg Q4H PRN IV For Anxiety 11/21/19 08:15 11/28/19 08:14 11/23/19 10:25 Metoprolol Tartrate (Lopressor) 50 mg Q12HR NG 11/22/19 21:00 02/19/20 20:59 11/23/19 09:07 Morphine Sulfate (Morphine Sulfate) 4 mg Q4H PRN IVP For Pain 11/21/19 08:15 11/28/19 08:14 11/22/19 14:10 Nitroglycerin (Ntg) 1 patch Q24H TDERMAL 11/22/19 11:00 12/22/19 10:59 11/23/19 10:24 Ondansetron HCl (Zofran) 4 mg Q6H PRN IVP Nausea & Vomiting 11/21/19 08:15 12/21/19 08:14 Pantoprazole (Protonix) 40 mg Q12HR IV 11/21/19 21:00 12/21/19 09:38 11/23/19 09:05 Polyethylene Glycol (Miralax) 17 gm DAILYPRN PRN NG Constipation 11/21/19 13:00 12/21/19 08:14 Temazepam (Restoril) 15 mg HSPRN PRN NG Insomnia 11/21/19 13:00 11/28/19 08:14 Vancomycin HCl (Vanco rx to dose) 1 ea DAILY PRN MISC Per rx protocol 11/22/19 14:45 12/22/19 14:44 Mike Hicks MD Nov 23, 2019 12:40
--- NOTE | 2019-11-23 13:41 | NUR ---
NURSE NOTES: pt found w/ with ogt out and at bedside. rr. 20. vss. restraints secured, NGT inserted. order f/u kub. will continue to monitor pt.
--- NOTE | 2019-11-23 14:21 | NUR ---
RADIOLOGY DEPT., ABDOMEN X-RAY FOR NGT PLACEMENT COMPLETED.-P.DYE
--- NOTE | 2019-11-23 14:49 | Diagnostic Imaging Report ---
Indication: Post nasogastric tube placement Technique: Supine view of the upper abdomen Comparison: none Findings: Nasogastric tube tip projects at the gastric fundus, proximal port just beyond the expected level of the gastroesophageal junction. Bowel gas pattern is unremarkable Impression: Borderline position of nasogastric tube, probably satisfactory but proximal port near the gastroesophageal junction; slight advancement recommended for more optimal positioning. Findings discussed with patient's nurse at the time of interpretation
--- NOTE | 2019-11-23 16:00 | NUR ---
NURSE NOTES: pt resting in bed. secretions suctioned. cleaned and repositioned. afebrile. no bm at this time. will continue to monitor pt.
--- NOTE | 2019-11-23 16:52 | Internal Med Progress Note ---
Subjective Physician Name Claude Garza Attending Physician Claude Garza MD Current Medications Medications (Trade) Dose Ordered Sig/Cyndi Route PRN Reason Start Time Stop Time Status Last Admin Dose Admin Acetaminophen (Tylenol) 650 mg Q4H PRN NG Fever 11/21/19 13:00 12/21/19 08:14 Albuterol/ Ipratropium (Albuterol/ Ipratropium) 3 ml Q4H PRN HHN Shortness of Breath 11/21/19 08:15 11/26/19 08:14 Aspirin (ASA) 81 mg DAILY NG 11/23/19 09:00 01/07/20 08:59 11/23/19 09:05 Ceftriaxone Sodium 1 gm/ Dextrose 55 ml @ 110 mls/hr Q24H IVPB 11/21/19 23:00 11/28/19 22:59 11/22/19 22:35 Dextrose (Dextrose 50%) 25 ml Q30M PRN IV Hypoglycemia 11/21/19 08:15 02/19/20 08:14 Dextrose (Dextrose 50%) 50 ml Q30M PRN IV Hypoglycemia 11/21/19 08:15 02/19/20 08:14 Dextrose/Sodium Chloride 1,000 ml @ 75 mls/hr [id number] IV 11/21/19 13:00 12/21/19 12:59 11/23/19 05:10 Docusate Sodium (Colace) 100 mg THREE TIMES A DAY NG 11/21/19 13:00 12/21/19 12:59 11/23/19 13:18 Heparin Sodium/ Dextrose 500 ml @ 26.163 mls/ hr ADJUST PER PROTOCOL IV 11/22/19 23:45 12/22/19 23:44 11/23/19 10:26 Lorazepam (Ativan 2mg/ml 1ml) 2 mg Q4H PRN IV For Anxiety 11/21/19 08:15 11/28/19 08:14 11/23/19 10:25 Metoprolol Tartrate (Lopressor) 50 mg Q12HR NG 11/22/19 21:00 02/19/20 20:59 11/23/19 09:07 Morphine Sulfate (Morphine Sulfate) 4 mg Q4H PRN IVP For Pain 11/21/19 08:15 11/28/19 08:14 11/22/19 14:10 Nitroglycerin (Ntg) 1 patch Q24H TDERMAL 11/22/19 11:00 12/22/19 10:59 11/23/19 10:24 Ondansetron HCl (Zofran) 4 mg Q6H PRN IVP Nausea & Vomiting 11/21/19 08:15 12/21/19 08:14 Pantoprazole (Protonix) 40 mg Q12HR IV 11/21/19 21:00 12/21/19 09:38 11/23/19 09:05 Polyethylene Glycol (Miralax) 17 gm DAILYPRN PRN NG Constipation 11/21/19 13:00 12/21/19 08:14 Temazepam (Restoril) 15 mg HSPRN PRN NG Insomnia 11/21/19 13:00 11/28/19 08:14 Vancomycin HCl (Vanco rx to dose) 1 ea DAILY PRN MISC Per rx protocol 11/22/19 14:45 12/22/19 14:44 Allergies: Coded Allergies: LISINOPRIL (Verified Allergy, Unknown, 11/21/19) SIMVASTATIN (Verified Allergy, Unknown, 11/21/19) TERAZOSIN (Verified Allergy, Unknown, 11/21/19) Subjective in ICU, intubated, open eyes, agitated. Objective Last Vital Signs Date Time Temp Pulse Resp B/P (MAP) Pulse Ox O2 Delivery O2 Flow Rate FiO2 11/23/19 16:00 Mechanical Ventilator 11/23/19 16:00 30 11/23/19 15:00 93 19 144/96 (112) 96 11/23/19 13:00 98.8 Laboratory Tests Test 11/22/19 22:01 11/23/19 05:30 11/23/19 08:50 Activated Partial Thromboplast Time > 150 SEC (23-33) *H 92 SEC (23-33) H White Blood Count 12.2 K/UL (4.8-10.8) H Red Blood Count 2.97 M/UL (4.70-6.10) L Hemoglobin 8.7 G/DL (14.2-18.0) L Hematocrit 26.6 % (42.0-52.0) L Mean Corpuscular Volume 90 FL (80-99) Mean Corpuscular Hemoglobin 29.2 PG (27.0-31.0) Mean Corpuscular Hemoglobin Concent 32.6 G/DL (32.0-36.0) Red Cell Distribution Width 17.4 % (11.6-14.8) H Platelet Count 341 K/UL (150-450) Mean Platelet Volume 4.5 FL (6.5-10.1) L Neutrophils (%) (Auto) 80.3 % (45.0-75.0) H Lymphocytes (%) (Auto) 7.2 % (20.0-45.0) L Monocytes (%) (Auto) 7.8 % (1.0-10.0) Eosinophils (%) (Auto) 3.6 % (0.0-3.0) H Basophils (%) (Auto) 1.0 % (0.0-2.0) Sodium Level 145 MMOL/L (136-145) Potassium Level 3.6 MMOL/L (3.5-5.1) Chloride Level 107 MMOL/L (98-107) Carbon Dioxide Level 25 MMOL/L (21-32) Anion Gap 13 mmol/L (5-15) Blood Urea Nitrogen 71 mg/dL (7-18) H Creatinine 6.0 MG/DL (0.55-1.30) H Estimat Glomerular Filtration Rate 10.9 mL/min (>60) Glucose Level 125 MG/DL (74-106) H Uric Acid 10.2 MG/DL (2.6-7.2) H Calcium Level 8.4 MG/DL (8.5-10.1) L Phosphorus Level 2.3 MG/DL (2.5-4.9) L Magnesium Level 2.1 MG/DL (1.8-2.4) Total Bilirubin 0.3 MG/DL (0.2-1.0) Aspartate Amino Transf (AST/SGOT) 18 U/L (15-37) Alanine Aminotransferase (ALT/SGPT) 16 U/L (12-78) Alkaline Phosphatase 49 U/L (46-116) Troponin I 0.109 ng/mL (0.000-0.056) C-Reactive Protein, Quantitative 13.2 mg/dL (0.00-0.90) H Pro-B-Type Natriuretic Peptide > 82012 pg/mL (0-125) H Total Protein 6.9 G/DL (6.4-8.2) Albumin 2.4 G/DL (3.4-5.0) L Globulin 4.5 g/dL Albumin/Globulin Ratio 0.5 (1.0-2.7) L Random Vancomycin Level 20.6 ug/mL Microbiology Date/Time Source Procedure Growth Status 11/21/19 03:05 Blood Not Otherwise Specified Blood Culture - Preliminary Gram Positive Cocci Resulted 11/21/19 02:50 Blood Not Otherwise Specified Blood Culture - Preliminary Gram Positive Cocci Resulted 11/22/19 17:40 Sputum Gram Stain - Final Resulted 11/22/19 17:40 Sputum Sputum Culture Pending Resulted 11/21/19 02:10 Nasal Nares MRSA Culture - Final Staphylococcus Aureus - Mrsa Complete 11/21/19 17:10 Urine,Clean Catch Urine Culture - Preliminary Resulted 11/21/19 03:05 Urine,Clean Catch Urine Culture - Preliminary Gram Negative Bacillus 1 Resulted 11/21/19 02:10 Rectum - Final NO CARBAPENEM-RESISTANT ENTEROBACTERI... Complete 11/21/19 02:10 Rectum VRE Culture - Final Enterococcus Faecium - Vre Complete Intake and Output 11/22/19 11/23/19 19:00 07:00 Intake Total 1624.247 ml 1760.218 ml Output Total 775 ml 565 ml Balance 849.247 ml 1195.218 ml Free Water 50 ml 50 ml IV Total 1184.247 ml 1350.218 ml Tube Feeding 360 ml 360 ml Other 30 ml Output Urine Total 775 ml 565 ml # Bowel Movements 1 1 Objective General: Intubated, awake, HEENT: NCAT, sclera anicteric, PERRL, EOMI, ET tube. Neck: Supple, no significant jugular venous distention, Lungs: Mechanical breath sound, no Wheeze or Rales. Heart: Regular rate and rhythm, normal S1/S2, no murmur. Abdomen: soft, nontender, nondistended. Normoactive bowel sounds. : Patiño Cath. Extremities: No Cyanosis , clubbing or edema. Neuro: Able to move all extremities Skin: warm, no rash. Psych: Normal mood and affect. Assessment/Plan Assessment/Plan ASSESSMENT: This is an 83-year-old male. 1. Acute hypercapnia respiratory failure. 2. Congestive heart failure. 3. Atrial fibrillation. 4. Altered mental status. 5. GNB Urinary tract infection. 6. DOLLY on Chronic Renal failure. 7. Hypertension. 8. Alzheimer's dementia. 9. Benign prostatic hypertrophy. TREATMENT: 1. Congestive heart failure. A Cardiology consultation has been obtained with Dr. Vasu Zaidi. We will follow recommendations of Cardiology. The patient is currently receiving intravenous Lasix. 2. Respiratory failure. A Pulmonary consultation has been obtained with Dr. Susannah Hightower. The patient is currently intubated in the intensive care unit. We will follow recommendations of Pulmonary. ABX=vanco IV and Rocephin IV per ID=Dr Hicks 3. Atrial fibrillation as above. A Cardiology consultation has been obtained with Dr. Vasu Zaidi. 4. Renal failure. A Nephrology consultation has been obtained with Dr. Ellison. We will follow recommendations of Nephrology. 5. Hypertension. The patient is currently hypotensive in the intensive care unit. 6. Alzheimer's dementia. 7. Benign prostatic hypertrophy. Claude Garza MD Nov 23, 2019 16:52
--- NOTE | 2019-11-23 18:14 | Cardiology Progress Note ---
Assessment/Plan Assessment/Plan 1. Permanent versus paroxysmal episodes of atrial fibrillation. 2. Tachycardia. 3. Renal insufficiency. 4. Obstructive uropathy. 5. History of hypertension. 6. Prostatic hypertrophy. 7. History of latent tuberculosis. 8. History of heart failure. 9. History of hepatitis C infection. 10. Respiratory failure with respiratory acidosis, now on vent cxr personally reviewed tele personally reviewed ekg reviewed torp abn likely due to renal insuf needs anticoagulation i have held due to the need for dialysis catheter implantation on heparin Subjective ROS Limited/Unobtainable: Yes Subjective vent isolation Objective Last 24 Hour Vital Signs Date Time Temp Pulse Resp B/P (MAP) Pulse Ox O2 Delivery O2 Flow Rate FiO2 11/23/19 17:00 89 17 126/83 (97) 98 11/23/19 16:48 73 16 30 11/23/19 16:00 86 11/23/19 16:00 81 17 150/93 (112) 98 11/23/19 16:00 Mechanical Ventilator 11/23/19 16:00 30 11/23/19 15:00 93 19 144/96 (112) 96 11/23/19 14:46 104 21 30 11/23/19 14:00 86 16 138/102 (114) 99 11/23/19 13:00 98.8 94 20 141/96 (111) 95 11/23/19 12:59 86 20 30 11/23/19 12:00 87 16 131/79 (96) 95 11/23/19 12:00 99 11/23/19 12:00 Mechanical Ventilator 11/23/19 11:00 77 17 134/86 (102) 11/23/19 10:42 78 16 30 11/23/19 10:24 136/90 11/23/19 10:00 95 20 139/91 (107) 96 11/23/19 09:30 30 11/23/19 09:24 106 25 30 11/23/19 09:10 94 25 30 30 11/23/19 09:10 99 11/23/19 09:07 100 143/93 11/23/19 09:00 95 23 143/93 (110) 96 11/23/19 08:00 Mechanical Ventilator 11/23/19 08:00 92 22 148/100 (116) 96 11/23/19 08:00 30 11/23/19 07:00 99.1 88 20 136/81 (99) 96 11/23/19 06:46 98 16 30 11/23/19 06:30 81 20 11/23/19 06:00 88 19 137/80 (99) 95 11/23/19 05:34 94 20 30 11/23/19 05:00 91 19 129/83 (98) 95 11/23/19 04:03 105 21 30 11/23/19 04:00 30 11/23/19 04:00 98.2 98 21 129/83 (98) 95 11/23/19 04:00 98 11/23/19 04:00 Mechanical Ventilator 11/23/19 03:00 103 23 145/97 (113) 94 11/23/19 02:00 76 18 130/89 (103) 95 11/23/19 01:00 80 19 131/83 (99) 95 11/23/19 00:45 94 20 30 11/23/19 00:00 98.6 91 22 128/75 (92) 93 11/23/19 00:00 Mechanical Ventilator 11/23/19 00:00 30 11/23/19 00:00 82 11/22/19 23:30 92 19 30 11/22/19 23:00 84 22 135/89 (104) 94 11/22/19 22:00 81 22 127/83 (98) 94 11/22/19 21:24 91 18 30 11/22/19 21:00 86 22 133/88 (103) 94 11/22/19 20:43 95 130/83 11/22/19 20:00 30 11/22/19 20:00 86 11/22/19 20:00 Mechanical Ventilator 11/22/19 20:00 98.4 90 22 130/83 (99) 94 11/22/19 19:30 90 17 30 11/22/19 19:00 83 16 127/82 (97) 94 General Appearance: no apparent distress, on vent, patient on isolation Cardiovascular: friction rub Respiratory/Chest: lungs clear Abdomen: normal bowel sounds, non tender, soft Extremities: no swelling Intake and Output 11/22/19 11/23/19 19:00 07:00 Intake Total 1624.247 ml 1760.218 ml Output Total 775 ml 565 ml Balance 849.247 ml 1195.218 ml Free Water 50 ml 50 ml IV Total 1184.247 ml 1350.218 ml Tube Feeding 360 ml 360 ml Other 30 ml Output Urine Total 775 ml 565 ml # Bowel Movements 1 1 Laboratory Tests Test 11/22/19 22:01 11/23/19 05:30 11/23/19 08:50 Activated Partial Thromboplast Time > 150 SEC (23-33) *H 92 SEC (23-33) H White Blood Count 12.2 K/UL (4.8-10.8) H Red Blood Count 2.97 M/UL (4.70-6.10) L Hemoglobin 8.7 G/DL (14.2-18.0) L Hematocrit 26.6 % (42.0-52.0) L Mean Corpuscular Volume 90 FL (80-99) Mean Corpuscular Hemoglobin 29.2 PG (27.0-31.0) Mean Corpuscular Hemoglobin Concent 32.6 G/DL (32.0-36.0) Red Cell Distribution Width 17.4 % (11.6-14.8) H Platelet Count 341 K/UL (150-450) Mean Platelet Volume 4.5 FL (6.5-10.1) L Neutrophils (%) (Auto) 80.3 % (45.0-75.0) H Lymphocytes (%) (Auto) 7.2 % (20.0-45.0) L Monocytes (%) (Auto) 7.8 % (1.0-10.0) Eosinophils (%) (Auto) 3.6 % (0.0-3.0) H Basophils (%) (Auto) 1.0 % (0.0-2.0) Sodium Level 145 MMOL/L (136-145) Potassium Level 3.6 MMOL/L (3.5-5.1) Chloride Level 107 MMOL/L (98-107) Carbon Dioxide Level 25 MMOL/L (21-32) Anion Gap 13 mmol/L (5-15) Blood Urea Nitrogen 71 mg/dL (7-18) H Creatinine 6.0 MG/DL (0.55-1.30) H Estimat Glomerular Filtration Rate 10.9 mL/min (>60) Glucose Level 125 MG/DL (74-106) H Uric Acid 10.2 MG/DL (2.6-7.2) H Calcium Level 8.4 MG/DL (8.5-10.1) L Phosphorus Level 2.3 MG/DL (2.5-4.9) L Magnesium Level 2.1 MG/DL (1.8-2.4) Total Bilirubin 0.3 MG/DL (0.2-1.0) Aspartate Amino Transf (AST/SGOT) 18 U/L (15-37) Alanine Aminotransferase (ALT/SGPT) 16 U/L (12-78) Alkaline Phosphatase 49 U/L (46-116) Troponin I 0.109 ng/mL (0.000-0.056) C-Reactive Protein, Quantitative 13.2 mg/dL (0.00-0.90) H Pro-B-Type Natriuretic Peptide > 06539 pg/mL (0-125) H Total Protein 6.9 G/DL (6.4-8.2) Albumin 2.4 G/DL (3.4-5.0) L Globulin 4.5 g/dL Albumin/Globulin Ratio 0.5 (1.0-2.7) L Random Vancomycin Level 20.6 ug/mL Microbiology Date/Time Source Procedure Growth Status 11/21/19 03:05 Blood Not Otherwise Specified Blood Culture - Preliminary Gram Positive Cocci Resulted 11/21/19 02:50 Blood Not Otherwise Specified Blood Culture - Preliminary Gram Positive Cocci Resulted 11/22/19 17:40 Sputum Gram Stain - Final Resulted 11/22/19 17:40 Sputum Sputum Culture Pending Resulted 11/21/19 02:10 Nasal Nares MRSA Culture - Final Staphylococcus Aureus - Mrsa Complete 11/21/19 17:10 Urine,Clean Catch Urine Culture - Preliminary Resulted 11/21/19 03:05 Urine,Clean Catch Urine Culture - Preliminary Gram Negative Bacillus 1 Resulted 11/21/19 02:10 Rectum - Final NO CARBAPENEM-RESISTANT ENTEROBACTERI... Complete 11/21/19 02:10 Rectum VRE Culture - Final Enterococcus Faecium - Vre Complete Vasu Zaidi MD Nov 23, 2019 18:14
--- NOTE | 2019-11-23 19:38 | NUR ---
HAND-OFF: Report given to Bach. FERGUSON pt in no acute distress.
--- NOTE | 2019-11-23 19:40 | NUR ---
NURSE NOTES: Received pt and report from SYED Singer. Pt's resting in bed, in no acute distress, open eyes to name. Afebrile. VS stable. Afib on monitoring and evaluation advisor. Noted confused, noted bilateral soft wrist restraints in place. Pt's in orally intubated with ETT 7.5, 25LL, Ac 16, TV 550, fio2 30%, PEEP 0, O2 saturating 99%. Noted NGT in place, running Jevity 1.2 at 30ml/h with 0 residuals. Abdominal soft, no BM at this time. Noted peripheral IV site at Right AC 20G, Left AC 20, right hand 20, running IVF of D51/2NS infusing at 75ml/hr. Heparin gtt is running on right hand at 14units/kg/hr. PTT to check on 11/24/2019 at 0400. Noted FC patent, running cloudy urine with strong odor. Sacral wound dressing dry and intact. Will monitor for any signs of bleeding. HOB kept elevated. Bed in low and locked position. Call light with in reach. Will continue to monitor.
--- NOTE | 2019-11-23 20:50 | NUR ---
NURSE NOTES: patient going down for CT accompanied by RT and two RN. Patient on monitor, transport meds with RN.
[2019-11-23] MEDS ORDERED: D5 1/2NS 1000ml IV ONE (21:17)
[2019-11-23] MEDS ORDERED: NS Irrig 1000ml ONE (21:17)
[2019-11-23] MEDS ORDERED: 1/2 NS 1000ml IV ONE (21:17)
[2019-11-23] MEDS ORDERED: Tubing IV Secondary IV ONE (21:17)
--- NOTE | 2019-11-23 21:22 | Diagnostic Imaging Report ---
EXAM: CT Chest Without Intravenous Contrast CLINICAL HISTORY: ABN LABS TECHNIQUE: Axial computed tomography images of the chest without intravenous contrast. CTDI is 9 mGy and DLP is 402 mGy-cm. One or more of the following dose reduction techniques were used: automated exposure control, adjustment of the mA and/or kV according to patient size, use of iterative reconstruction technique. COMPARISON: No relevant prior studies available. FINDINGS: Lungs: 13 mm granuloma versus hamartoma at the left upper lobe. Pleural space: Large right pleural effusion. Adjacent passive atelectasis. Small left pleural effusion also with adjacent passive atelectasis. No pneumothorax. Heart: Cardiomegaly without pericardial effusion. Multivessel coronary calcifications. Bones/joints: Unremarkable. No acute fracture. No dislocation. Soft tissues: Unremarkable. Vasculature: Unremarkable. No thoracic aortic aneurysm. Lymph nodes: Unremarkable. No enlarged lymph nodes. Liver: Cyst measuring 5.5 cm located at the left lobe of the liver. Smaller cyst at the posterior segment right hepatic lobe. Gallbladder and bile ducts: Cholelithiasis. Gallbladder is now well assessed due to to motion and incomplete visualization. Kidneys and ureters: Right renal cysts. Left renal atrophy. Tubes, lines and devices: Patient is intubated without abnormality. Transesophageal catheter identified with tip at the antrum the stomach. IMPRESSION: 1. Bilateral pleural effusions, right larger than left with adjacent passive atelectasis. 2. Correlate clinically to exclude congestive heart failure exacerbation.
--- NOTE | 2019-11-23 22:00 | NUR ---
NURSE NOTES: Pt's resting in bed, in no acute distress. Asleep. VS stable. Afebrile. Will continue to monitor.
[2019-11-23] MEDS: cefTRIAXone 1 GM in D5W 55 ML IVPB SCH (23:25)
[2019-11-24] VITALS (23 sets, daily range): BP systolic 125–151; BP diastolic 72–99
--- NOTE | 2019-11-24 | NUR ---
NURSE NOTES: Pt's resting in bed, in no acute distress. Asleep. VS stable. Afebrile. Will continue to monitor.
--- NOTE | 2019-11-24 02:00 | NUR ---
NURSE NOTES: Pt's resting in bed, in no acute distress. Vs stable. Will continue to monitor.
--- NOTE | 2019-11-24 04:00 | NUR ---
NURSE NOTES: Pt's resting in bed, in no acute distress. VS stable. Will continue to monitor.
[2019-11-24 05:14] LABS: BASOPHILS % (AUTO) 0.5 % (0.0-2.0); EOSINOPHILS % (AUTO) 4.7 % (0.0-3.0); HEMATOCRIT 28.9 % (42.0-52.0); HEMOGLOBIN 9.3 G/DL (14.2-18.0); MEAN CORPUSCULAR VOLUME 91 FL (80-99); NEUTROPHILS % (AUTO) 76.8 % (45.0-75.0); PLATELET COUNT 388 K/UL (150-450); RED BLOOD COUNT 3.18 M/UL (4.70-6.10); RED CELL DISTRIBUTION WIDTH 17.7 % (11.6-14.8)
[2019-11-24 05:26] LABS: ALANINE AMINOTRANSFERASE 16 U/L (12-78); ALBUMIN 2.6 G/DL (3.4-5.0); ALBUMIN/GLOBULIN RATIO 0.5 (1.0-2.7); ALKALINE PHOSPHATASE 54 U/L (46-116); ANION GAP 11 mmol/L (5-15); ASPARTATE AMINO TRANSFERASE 16 U/L (15-37); BILIRUBIN,TOTAL 0.3 MG/DL (0.2-1.0); BLOOD UREA NITROGEN 61 mg/dL (7-18); CALCIUM 9.4 MG/DL (8.5-10.1); CARBON DIOXIDE 26 MMOL/L (21-32); CHLORIDE 106 MMOL/L (98-107); CREATININE 5.5 MG/DL (0.55-1.30); POTASSIUM 3.7 MMOL/L (3.5-5.1); SODIUM 143 MMOL/L (136-145)
[2019-11-24 05:37] LABS: PHOSPHORUS 2.9 MG/DL (2.5-4.9)
[2019-11-24] MEDS: Heparin 25,000u/D5W 500ml 500 ML IV SCH (05:45)
--- NOTE | 2019-11-24 06:00 | NUR ---
NURSE NOTES: Pt's resting in bed, turned as scheduled, morning care given. Afebrile. Will continue to monitor.
--- NOTE | 2019-11-24 07:30 | NUR ---
HAND-OFF: Report given to SYED Aponte.
--- NOTE | 2019-11-24 07:40 | NUR ---
NURSE NOTES: Received pt and report from SYED Cochran. Patient observed bedside to be resting comfortably in bed. Patient opens eyes spontaneously to name, tracks with eyes. Patient appears confused. Patient does follow some commands, when asked to throw a thumbs up, patient followed however, reportedly will pull at ETT and was seen grabbing at IV lines. Patient is being monitored on the cardiac cath lab technologist shows stable Afib. VS BP 154/81 HR 93 RR 20 SPO2 98% Patient is orally intubated with ETT 7.5, 25cm at the lipline, AC 16, TV 550, fio2 30% with no PEEP. Oral care was performed. Patient with NGT running Jevity 1.2 at 30ml/h with 10 ml residual and a 20 ml flush given. Patient abd is distended with hypoactive bowel sounds. Patient with Patiño catheter draining YL urine to gravity with good amounts of urine. Meatal care performed. Patient with RAC 20G, LAC 20, RH20G, running D5 1/2NS @ 75ml/hr, Heparin gtt on RH @ 14units/kg/hr. Reported sacral wound with dressing that is dry and intact. Patient has BL wrist restraints for safety for notable pulling of lines. Pulses are palpable and skin is intact. Will monitor for any signs of bleeding. Safety measures are in place with bed locked in the lowest position, HOB elevated, alarmed with call light within reach. Will continue to monitor and follow MD plan of care. Addendum: 11/24/19 at 1231 by Fay Crum RN Heparin is running at 12 units/kg/hr
[2019-11-24] MEDS ORDERED: Vancomycin 1gm/D5W 275ml IVPB ONE ×2 (08:00)
[2019-11-24] MEDS: D5 1/2NS 1,000 ML IV SCH ×2 (08:18→21:13)
[2019-11-24] MEDS: Docusate 100mg/10ml Liq NG SCH ×3 (08:21→20:05)
[2019-11-24] MEDS: Pantoprazole Inj IV SCH ×2 (08:21→21:12)
[2019-11-24] MEDS: Aspirin Baby 81mg NG SCH (08:21)
[2019-11-24] MEDS: Metoprolol Tartrate 50mg tab NG SCH ×2 (08:21→21:12)
--- NOTE | 2019-11-24 08:21 | Diagnostic Imaging Report ---
EXAM: XR Chest, 1 View CLINICAL HISTORY: DYSPNEA TECHNIQUE: Frontal view of the chest. COMPARISON: 11/22/19 FINDINGS: Lungs: There is unchanged mild perihilar and lower lobe pulmonary edema. There is an asymmetric infiltrate in the right lower lobe indeterminate between atelectasis and pneumonia. Progress films are recommended Pleural space: There is an unchanged small left pleural effusion with increasing mild right pleural effusion. No pneumothorax. Heart: Unremarkable. No cardiomegaly. Mediastinum: Unremarkable. Bones/joints: Unremarkable. Tubes, lines and devices: There is an endotracheal tube and NG tube in good position. IMPRESSION: 1. Unchanged mild CHF with increasing mild right pleural effusion unchanged small left pleural effusion. 2. Asymmetric right basilar infiltrate indeterminate between atelectasis and pneumonia
--- NOTE | 2019-11-24 09:15 | NUR ---
NURSE NOTES: Dr Ellison assessed patient bedside. Report current BUN and Medical Billing Supervisor. No HD at this time 2/2 to improvement of kidney function. Will continue to monitor.
--- NOTE | 2019-11-24 09:54 | Pulmonolgy Critical Care Note ---
Critical Care - Asmt/Plan Assessment/Plan: ASSESSMENT Sepsis with bacteremia -real vs contaminant Acute hypoxemic hypercapnic respiratory failure requiring intubation UTI Acute on chronic renal failure Acute toxic metabolic encephalopathy Atrial fibrillation with rapid ventricular response Elevated troponin, likely due to renal failure CHF Anemia of chronic kidney disease Moderate pulmonary hypertension Hypertension BPH History of hepatitis C History of latent TB PLAN OF CARE vent support pulmonary toilet fup with ABG and CXR CT chest noted marlen pleural effusion venous duplex BLE negative Echo with EF 55-60, moderate pulmonary HTN, no vegetation heparin gtt BB for rate control continue ASA ,BB, and nitro ; trend troponin abx as per ID BCX + Staph warneri, ? contamination repeated BCX 11/21 NGTD UCX+ GNB SCX + GNB IVF monitor renal parameters lytes; correct lytes as needed renal US with chronic renal disease avoid nephrotoxics nephro follows ? HD monitor H&H with goal to keep hemoglobin above 7 anemia work-up c/w anemia of chronic disease GI prophylaxis supportive care case discussed and evaluated by supervising physician Critical Care - Objective Last 24 Hour Vital Signs Date Time Temp Pulse Resp B/P (MAP) Pulse Ox O2 Delivery O2 Flow Rate FiO2 11/24/19 09:23 73 16 30 11/24/19 09:22 95 11/24/19 08:21 88 154/81 11/24/19 08:00 30 11/24/19 08:00 Mechanical Ventilator 11/24/19 08:00 80 11/24/19 07:00 88 19 140/86 (104) 97 11/24/19 07:00 75 21 30 11/24/19 06:30 79 20 11/24/19 06:00 88 19 128/85 (99) 97 11/24/19 05:22 84 19 30 11/24/19 05:00 98.7 101 21 148/98 (115) 96 11/24/19 04:00 96 11/24/19 04:00 30 11/24/19 04:00 Mechanical Ventilator 11/24/19 04:00 80 18 151/90 (110) 95 11/24/19 03:43 78 20 30 11/24/19 03:00 87 20 151/91 (111) 98 11/24/19 02:00 81 18 143/84 (103) 100 11/24/19 01:36 77 20 30 11/24/19 01:00 79 19 136/90 (105) 96 11/24/19 00:00 Mechanical Ventilator 11/24/19 00:00 83 11/24/19 00:00 98.7 84 21 146/97 (113) 96 11/24/19 00:00 30 11/23/19 23:28 79 18 30 11/23/19 23:00 78 20 144/95 (111) 95 11/23/19 22:00 92 19 147/93 (111) 99 11/23/19 21:45 91 147/93 11/23/19 21:14 74 19 30 11/23/19 21:00 17 155/91 (112) 99 11/23/19 20:00 30 11/23/19 20:00 Mechanical Ventilator 11/23/19 20:00 83 11/23/19 20:00 79 17 123/77 (92) 99 11/23/19 19:14 72 17 30 11/23/19 19:00 98.8 77 16 130/82 (98) 97 11/23/19 18:00 91 22 145/89 (107) 94 11/23/19 18:00 82 17 145/89 (107) 100 11/23/19 17:00 89 17 126/83 (97) 98 11/23/19 16:48 73 16 30 11/23/19 16:00 86 11/23/19 16:00 81 17 150/93 (112) 98 11/23/19 16:00 Mechanical Ventilator 11/23/19 16:00 30 11/23/19 15:00 93 19 144/96 (112) 96 11/23/19 14:46 104 21 30 11/23/19 14:00 86 16 138/102 (114) 99 11/23/19 13:00 98.8 94 20 141/96 (111) 95 11/23/19 12:59 86 20 30 11/23/19 12:00 87 16 131/79 (96) 95 11/23/19 12:00 99 11/23/19 12:00 Mechanical Ventilator 11/23/19 11:00 77 17 134/86 (102) 11/23/19 10:42 78 16 30 11/23/19 10:24 136/90 11/23/19 10:00 95 20 139/91 (107) 96 Status: awake, other - intubated on Vent Ac 550-16-30% Condition: critical HEENT: atraumatic, normocephalic, other - OP with ET in palce, intact Lungs: rhonchi - bibasilar crackles Heart: HR/BP stable Abdomen: soft, non-tender, active bowel sounds, feeding tube Micro: Microbiology Date/Time Source Procedure Growth Status 11/22/19 15:08 Blood Blood Culture - Preliminary NO GROWTH AFTER 24 HOURS Resulted 11/22/19 15:00 Blood Blood Culture - Preliminary NO GROWTH AFTER 24 HOURS Resulted 11/22/19 17:40 Sputum Gram Stain - Final Resulted 11/22/19 17:40 Sputum Culture - Preliminary Gram Negative Bacillus 1 Resulted 11/21/19 17:10 Urine,Clean Catch Urine Culture - Preliminary Resulted Critical Care - Subjective Interval Events: afebrile, still with leukocytosis remains intubated ABG stable on current settings CXR w/out much changes creat down to 5.5 repeated BCX NGTD Condition: critical IV Access: peripheral EKG Rhythm: Atrial Fibrillation FI02: 30 Vent Support Breath Rate: 16 Vent Support Mode: AC Vent Tidal Volume: 550 Sputum Amount: Scant PEEP: 0.0 PIP: 32 Fluids: D51/2 NS at 75 Drips: Heparin gtt Tube Feeding Amount: 30 I&O: Intake and Output 11/23/19 11/24/19 19:00 07:00 Intake Total 1511.630 ml 1714.6625 ml Output Total 430 ml 375 ml Balance 1081.630 ml 1339.6625 ml Free Water 100 ml 110 ml IV Total 1011.630 ml 1244.6625 ml Tube Feeding 360 ml 360 ml Other 40 ml Output Urine Total 430 ml 375 ml CXR: CXR 11/22 1. Unchanged mild CHF with increasing mild right pleural effusion unchanged small left pleural effusion. 2. Asymmetric right basilar infiltrate indeterminate between atelectasis and pneumonia ET-Tube: 7.5 ET Position: 25 Olga Tobin NP Nov 24, 2019 09:54
[2019-11-24] MEDS ORDERED: Tubing IV Secondary IV ONE (10:08)
[2019-11-24] MEDS ORDERED: D5 1/2NS 1000ml IV ONE (10:08)
[2019-11-24] MEDS ORDERED: NS 275ml ONE (10:08)
--- NOTE | 2019-11-24 10:08 | NUR ---
NURSE NOTES: Weaning trial ended. Patient became tachypneic and stressed with trial. Put back on original vent settings.
[2019-11-24] MEDS ORDERED: Albuterol/Ipratropium 3ml neb HHN PRN (10:11)
--- NOTE | 2019-11-24 10:30 | NUR ---
NURSE NOTES: Dr Ordaz assessed patient bedside. Reported all lab results and current condition of patient to MD. Will continue to monitor.
--- NOTE | 2019-11-24 10:39 | Infectious Diseases Prog Note ---
Assessment/Plan Assessment/Plan ASSESSMENT: This is an 83-year-old male. Afebrile Nl WBC Doubt Pneum (at this time) - Respiratory failure: m/l 2/2 CHF, elevated BNP) - Sp Cx GNR Probable UTI - UCX : GNR GPC Bacteremia - BCx 11/21/19 Staph warneri 2/2 sets - BCx 11/22/19 - NGTD - 2D Echo : No Veg Congestive heart failure. Atrial fibrillation. Altered mental status. Urinary tract infection. Renal failure. Hypertension. Alzheimer's dementia. BPH P: cont IV Vanco # 3 Cont pt on IV Rocephin # 4 Monitor CBC, CMP Monitor Cx ( B, U, Sp ) Monitor CXR Rsp support Chest CT Bl cx Rpt Subjective Allergies: Coded Allergies: LISINOPRIL (Verified Allergy, Unknown, 11/21/19) SIMVASTATIN (Verified Allergy, Unknown, 11/21/19) TERAZOSIN (Verified Allergy, Unknown, 11/21/19) Subjective Afebrile Satting well on vent 30% WBCs 13 Sputum CX GRN Objective Vital Signs Last 24 Hour Vital Signs Date Time Temp Pulse Resp B/P (MAP) Pulse Ox O2 Delivery O2 Flow Rate FiO2 11/24/19 10:00 80 22 146/99 (115) 97 11/24/19 09:23 73 16 30 11/24/19 09:22 95 11/24/19 09:00 81 25 148/84 (105) 96 11/24/19 08:21 88 154/81 11/24/19 08:00 30 11/24/19 08:00 Mechanical Ventilator 11/24/19 08:00 98.1 82 19 125/88 (100) 98 11/24/19 08:00 80 11/24/19 07:00 88 19 140/86 (104) 97 11/24/19 07:00 75 21 30 11/24/19 06:30 79 20 11/24/19 06:00 88 19 128/85 (99) 97 11/24/19 05:22 84 19 30 11/24/19 05:00 98.7 101 21 148/98 (115) 96 11/24/19 04:00 96 11/24/19 04:00 30 11/24/19 04:00 Mechanical Ventilator 11/24/19 04:00 80 18 151/90 (110) 95 11/24/19 03:43 78 20 30 11/24/19 03:00 87 20 151/91 (111) 98 11/24/19 02:00 81 18 143/84 (103) 100 11/24/19 01:36 77 20 30 11/24/19 01:00 79 19 136/90 (105) 96 11/24/19 00:00 Mechanical Ventilator 11/24/19 00:00 83 11/24/19 00:00 98.7 84 21 146/97 (113) 96 11/24/19 00:00 30 11/23/19 23:28 79 18 30 11/23/19 23:00 78 20 144/95 (111) 95 11/23/19 22:00 92 19 147/93 (111) 99 11/23/19 21:45 91 147/93 11/23/19 21:14 74 19 30 11/23/19 21:00 17 155/91 (112) 99 11/23/19 20:00 30 11/23/19 20:00 Mechanical Ventilator 11/23/19 20:00 83 11/23/19 20:00 79 17 123/77 (92) 99 11/23/19 19:14 72 17 30 11/23/19 19:00 98.8 77 16 130/82 (98) 97 11/23/19 18:00 91 22 145/89 (107) 94 11/23/19 18:00 82 17 145/89 (107) 100 11/23/19 17:00 89 17 126/83 (97) 98 11/23/19 16:48 73 16 30 11/23/19 16:00 86 11/23/19 16:00 81 17 150/93 (112) 98 11/23/19 16:00 Mechanical Ventilator 11/23/19 16:00 30 11/23/19 15:00 93 19 144/96 (112) 96 11/23/19 14:46 104 21 30 11/23/19 14:00 86 16 138/102 (114) 99 11/23/19 13:00 98.8 94 20 141/96 (111) 95 11/23/19 12:59 86 20 30 11/23/19 12:00 87 16 131/79 (96) 95 11/23/19 12:00 99 11/23/19 12:00 Mechanical Ventilator 11/23/19 11:00 77 17 134/86 (102) 11/23/19 10:42 78 16 30 Height (Feet): 5 Height (Inches): 10.00 Weight (Pounds): 210 HEENT: normocephalic, atraumatic Respiratory/Chest: lungs clear, normal breath sounds Cardiovascular: normal rate, regular rhythm Abdomen: soft, non tender Microbiology Date/Time Source Procedure Growth Status 11/22/19 15:08 Blood Blood Culture - Preliminary NO GROWTH AFTER 24 HOURS Resulted 11/22/19 15:00 Blood Blood Culture - Preliminary NO GROWTH AFTER 24 HOURS Resulted 11/22/19 17:40 Sputum Gram Stain - Final Resulted 11/22/19 17:40 Sputum Culture - Preliminary Gram Negative Bacillus 1 Resulted 11/21/19 17:10 Urine,Clean Catch Urine Culture - Preliminary Resulted Laboratory Tests Test 11/24/19 04:30 11/24/19 07:26 11/24/19 07:30 White Blood Count 13.0 K/UL (4.8-10.8) H Red Blood Count 3.18 M/UL (4.70-6.10) L Hemoglobin 9.3 G/DL (14.2-18.0) L Hematocrit 28.9 % (42.0-52.0) L Mean Corpuscular Volume 91 FL (80-99) Mean Corpuscular Hemoglobin 29.3 PG (27.0-31.0) Mean Corpuscular Hemoglobin Concent 32.3 G/DL (32.0-36.0) Red Cell Distribution Width 17.7 % (11.6-14.8) H Platelet Count 388 K/UL (150-450) Mean Platelet Volume 4.6 FL (6.5-10.1) L Neutrophils (%) (Auto) 76.8 % (45.0-75.0) H Lymphocytes (%) (Auto) 10.0 % (20.0-45.0) L Monocytes (%) (Auto) 8.0 % (1.0-10.0) Eosinophils (%) (Auto) 4.7 % (0.0-3.0) H Basophils (%) (Auto) 0.5 % (0.0-2.0) Activated Partial Thromboplast Time 102 SEC (23-33) H Sodium Level 143 MMOL/L (136-145) Potassium Level 3.7 MMOL/L (3.5-5.1) Chloride Level 106 MMOL/L (98-107) Carbon Dioxide Level 26 MMOL/L (21-32) Anion Gap 11 mmol/L (5-15) Blood Urea Nitrogen 61 mg/dL (7-18) H Creatinine 5.5 MG/DL (0.55-1.30) H Estimat Glomerular Filtration Rate 12.1 mL/min (>60) Glucose Level 128 MG/DL (74-106) H Calcium Level 9.4 MG/DL (8.5-10.1) Phosphorus Level 2.9 MG/DL (2.5-4.9) Magnesium Level 2.2 MG/DL (1.8-2.4) Total Bilirubin 0.3 MG/DL (0.2-1.0) Aspartate Amino Transf (AST/SGOT) 16 U/L (15-37) Alanine Aminotransferase (ALT/SGPT) 16 U/L (12-78) Alkaline Phosphatase 54 U/L (46-116) Total Protein 7.5 G/DL (6.4-8.2) Albumin 2.6 G/DL (3.4-5.0) L Globulin 4.9 g/dL Albumin/Globulin Ratio 0.5 (1.0-2.7) L Random Vancomycin Level 15.2 ug/mL Arterial Blood pH 7.378 (7.350-7.450) Arterial Blood Partial Pressure CO2 42.9 mmHg (35.0-45.0) Arterial Blood Partial Pressure O2 72.1 mmHg (75.0-100.0) L Arterial Blood HCO3 24.7 mmol/L (22.0-26.0) Arterial Blood Oxygen Saturation 93.7 % (95-100) L Arterial Blood Base Excess -0.5 (-2-2) Shade Test Positive Urine Eosinophils Pending Current Medications Medications (Trade) Dose Ordered Sig/Cyndi Route PRN Reason Start Time Stop Time Status Last Admin Dose Admin Acetaminophen (Tylenol) 650 mg Q4H PRN NG Fever 11/21/19 13:00 12/21/19 08:14 Albuterol/ Ipratropium (Albuterol/ Ipratropium) 3 ml Q4H PRN HHN Shortness of Breath 11/24/19 10:11 11/29/19 10:10 Aspirin (ASA) 81 mg DAILY NG 11/23/19 09:00 01/07/20 08:59 11/24/19 08:21 Ceftriaxone Sodium 1 gm/ Dextrose 55 ml @ 110 mls/hr Q24H IVPB 11/21/19 23:00 11/28/19 22:59 11/23/19 23:25 Dextrose (Dextrose 50%) 25 ml Q30M PRN IV Hypoglycemia 11/21/19 08:15 02/19/20 08:14 Dextrose (Dextrose 50%) 50 ml Q30M PRN IV Hypoglycemia 11/21/19 08:15 02/19/20 08:14 Dextrose/Sodium Chloride 1,000 ml @ 75 mls/hr [id number] IV 11/21/19 13:00 12/21/19 12:59 11/24/19 08:18 Docusate Sodium (Colace) 100 mg THREE TIMES A DAY NG 11/21/19 13:00 12/21/19 12:59 11/24/19 08:21 Heparin Sodium/ Dextrose 500 ml @ 22.426 mls/ hr ADJUST PER PROTOCOL IV 11/24/19 05:45 12/24/19 05:44 11/24/19 05:45 Lorazepam (Ativan 2mg/ml 1ml) 2 mg Q4H PRN IV For Anxiety 11/21/19 08:15 11/28/19 08:14 11/23/19 10:25 Metoprolol Tartrate (Lopressor) 50 mg Q12HR NG 11/22/19 21:00 02/19/20 20:59 11/24/19 08:21 Morphine Sulfate (Morphine Sulfate) 4 mg Q4H PRN IVP For Pain 11/21/19 08:15 11/28/19 08:14 11/22/19 14:10 Nitroglycerin (Ntg) 1 patch Q24H TDERMAL 11/22/19 11:00 12/22/19 10:59 11/23/19 10:24 Ondansetron HCl (Zofran) 4 mg Q6H PRN IVP Nausea & Vomiting 11/21/19 08:15 12/21/19 08:14 Pantoprazole (Protonix) 40 mg Q12HR IV 11/21/19 21:00 12/21/19 09:38 11/24/19 08:21 Polyethylene Glycol (Miralax) 17 gm DAILYPRN PRN NG Constipation 11/21/19 13:00 12/21/19 08:14 Temazepam (Restoril) 15 mg HSPRN PRN NG Insomnia 11/21/19 13:00 11/28/19 08:14 Vancomycin HCl (Vanco rx to dose) 1 ea DAILY PRN MISC Per rx protocol 11/22/19 14:45 12/22/19 14:44 Rafael Ordaz MD Nov 24, 2019 10:39
--- NOTE | 2019-11-24 11:27 | Nephrology Progress Note ---
Assessment/Plan Problem List: (1) Acute on chronic renal insufficiency (2) Acute hypercapnic respiratory failure (3) Anemia in chronic kidney disease (CKD) (4) BPH (benign prostatic hyperplasia) Assessment Acute renal failure Possible underlying chronic kidney failure Hyperkalemia Anemia other conditions: (1) Acute hypercapnic respiratory failure (2) Paroxysmal A-fib (3) Anemia, chronic renal failure (4) History of hypertension (5) Alzheimer's dementia (6) Chronic hepatitis (7) BPH (benign prostatic hyperplasia) Plan Increase Lopressor dose Nitrate Slow hydration Monitor intake and output Monitor renal parameters Avoid nephrotoxic's Kidney ultrasound results noted indicative of chronicity 2D echocardiogram result noted ejection fraction 55% Anemia work-up noted Per orders Subjective ROS Limited/Unobtainable: Yes Objective Objective Last 24 Hour Vital Signs Date Time Temp Pulse Resp B/P (MAP) Pulse Ox O2 Delivery O2 Flow Rate FiO2 11/24/19 10:00 80 22 146/99 (115) 97 11/24/19 09:23 73 16 30 11/24/19 09:22 95 11/24/19 09:00 81 25 148/84 (105) 96 11/24/19 08:21 88 154/81 11/24/19 08:00 30 11/24/19 08:00 Mechanical Ventilator 11/24/19 08:00 98.1 82 19 125/88 (100) 98 11/24/19 08:00 80 11/24/19 07:00 88 19 140/86 (104) 97 11/24/19 07:00 75 21 30 11/24/19 06:30 79 20 11/24/19 06:00 88 19 128/85 (99) 97 11/24/19 05:22 84 19 30 11/24/19 05:00 98.7 101 21 148/98 (115) 96 11/24/19 04:00 96 11/24/19 04:00 30 11/24/19 04:00 Mechanical Ventilator 11/24/19 04:00 80 18 151/90 (110) 95 11/24/19 03:43 78 20 30 11/24/19 03:00 87 20 151/91 (111) 98 11/24/19 02:00 81 18 143/84 (103) 100 11/24/19 01:36 77 20 30 11/24/19 01:00 79 19 136/90 (105) 96 11/24/19 00:00 Mechanical Ventilator 11/24/19 00:00 83 11/24/19 00:00 98.7 84 21 146/97 (113) 96 11/24/19 00:00 30 11/23/19 23:28 79 18 30 11/23/19 23:00 78 20 144/95 (111) 95 11/23/19 22:00 92 19 147/93 (111) 99 11/23/19 21:45 91 147/93 11/23/19 21:14 74 19 30 11/23/19 21:00 17 155/91 (112) 99 11/23/19 20:00 30 11/23/19 20:00 Mechanical Ventilator 11/23/19 20:00 83 11/23/19 20:00 79 17 123/77 (92) 99 11/23/19 19:14 72 17 30 11/23/19 19:00 98.8 77 16 130/82 (98) 97 11/23/19 18:00 91 22 145/89 (107) 94 11/23/19 18:00 82 17 145/89 (107) 100 11/23/19 17:00 89 17 126/83 (97) 98 11/23/19 16:48 73 16 30 11/23/19 16:00 86 11/23/19 16:00 81 17 150/93 (112) 98 11/23/19 16:00 Mechanical Ventilator 11/23/19 16:00 30 11/23/19 15:00 93 19 144/96 (112) 96 11/23/19 14:46 104 21 30 11/23/19 14:00 86 16 138/102 (114) 99 11/23/19 13:00 98.8 94 20 141/96 (111) 95 11/23/19 12:59 86 20 30 11/23/19 12:00 87 16 131/79 (96) 95 11/23/19 12:00 99 11/23/19 12:00 Mechanical Ventilator Intake and Output 11/23/19 11/24/19 19:00 07:00 Intake Total 1511.630 ml 1714.6625 ml Output Total 430 ml 375 ml Balance 1081.630 ml 1339.6625 ml Free Water 100 ml 110 ml IV Total 1011.630 ml 1244.6625 ml Tube Feeding 360 ml 360 ml Other 40 ml Output Urine Total 430 ml 375 ml Current Medications Medications (Trade) Dose Ordered Sig/Cyndi Route PRN Reason Start Time Stop Time Status Last Admin Dose Admin Acetaminophen (Tylenol) 650 mg Q4H PRN NG Fever 11/21/19 13:00 12/21/19 08:14 Albuterol/ Ipratropium (Albuterol/ Ipratropium) 3 ml Q4H PRN HHN Shortness of Breath 11/24/19 10:11 11/29/19 10:10 Aspirin (ASA) 81 mg DAILY NG 11/23/19 09:00 01/07/20 08:59 11/24/19 08:21 Ceftriaxone Sodium 1 gm/ Dextrose 55 ml @ 110 mls/hr Q24H IVPB 11/21/19 23:00 11/28/19 22:59 11/23/19 23:25 Dextrose (Dextrose 50%) 25 ml Q30M PRN IV Hypoglycemia 11/21/19 08:15 02/19/20 08:14 Dextrose (Dextrose 50%) 50 ml Q30M PRN IV Hypoglycemia 11/21/19 08:15 02/19/20 08:14 Dextrose/Sodium Chloride 1,000 ml @ 75 mls/hr [id number] IV 11/21/19 13:00 12/21/19 12:59 11/24/19 08:18 Docusate Sodium (Colace) 100 mg THREE TIMES A DAY NG 11/21/19 13:00 12/21/19 12:59 11/24/19 08:21 Heparin Sodium/ Dextrose 500 ml @ 22.426 mls/ hr ADJUST PER PROTOCOL IV 11/24/19 05:45 12/24/19 05:44 11/24/19 05:45 Lorazepam (Ativan 2mg/ml 1ml) 2 mg Q4H PRN IV For Anxiety 11/21/19 08:15 11/28/19 08:14 11/23/19 10:25 Metoprolol Tartrate (Lopressor) 50 mg Q12HR NG 11/22/19 21:00 02/19/20 20:59 11/24/19 08:21 Morphine Sulfate (Morphine Sulfate) 4 mg Q4H PRN IVP For Pain 11/21/19 08:15 11/28/19 08:14 11/22/19 14:10 Nitroglycerin (Ntg) 1 patch Q24H TDERMAL 11/22/19 11:00 12/22/19 10:59 11/23/19 10:24 Ondansetron HCl (Zofran) 4 mg Q6H PRN IVP Nausea & Vomiting 11/21/19 08:15 12/21/19 08:14 Pantoprazole (Protonix) 40 mg Q12HR IV 11/21/19 21:00 12/21/19 09:38 11/24/19 08:21 Polyethylene Glycol (Miralax) 17 gm DAILYPRN PRN NG Constipation 11/21/19 13:00 12/21/19 08:14 Temazepam (Restoril) 15 mg HSPRN PRN NG Insomnia 11/21/19 13:00 11/28/19 08:14 Vancomycin HCl (Vanco rx to dose) 1 ea DAILY PRN MISC Per rx protocol 11/22/19 14:45 12/22/19 14:44 Laboratory Tests 11/24/19 04:30: White Blood Count 13.0H, Red Blood Count 3.18L, Hemoglobin 9.3L, Hematocrit 28.9L, Mean Corpuscular Volume 91, Mean Corpuscular Hemoglobin 29.3, Mean Corpuscular Hemoglobin Concent 32.3, Red Cell Distribution Width 17.7H, Platelet Count 388, Mean Platelet Volume 4.6L, Neutrophils (%) (Auto) 76.8H, Lymphocytes (%) (Auto) 10.0L, Monocytes (%) (Auto) 8.0, Eosinophils (%) (Auto) 4.7H, Basophils (%) (Auto) 0.5, Activated Partial Thromboplast Time 102H, Sodium Level 143, Potassium Level 3.7, Chloride Level 106, Carbon Dioxide Level 26, Anion Gap 11, Blood Urea Nitrogen 61H, Creatinine 5.5H, Estimat Glomerular Filtration Rate 12.1, Glucose Level 128H, Calcium Level 9.4, Phosphorus Level 2.9, Magnesium Level 2.2, Total Bilirubin 0.3, Aspartate Amino Transf (AST/SGOT ) 16, Alanine Aminotransferase (ALT/SGPT) 16, Alkaline Phosphatase 54, Total Protein 7.5, Albumin 2.6L, Globulin 4.9, Albumin/Globulin Ratio 0.5L, Random Vancomycin Level 15.2 11/24/19 07:26: Arterial Blood pH 7.378, Arterial Blood Partial Pressure CO2 42.9, Arterial Blood Partial Pressure O2 72.1L, Arterial Blood HCO3 24.7, Arterial Blood Oxygen Saturation 93.7L, Arterial Blood Base Excess -0.5, Shade Test Positive 11/24/19 07:30: Urine Eosinophils [Pending] Height (Feet): 5 Height (Inches): 10.00 Weight (Pounds): 210 General Appearance: no apparent distress EENT: other Cardiovascular: normal rate Respiratory/Chest: decreased breath sounds - Remains intubated and vented Abdomen: distended Reynold Ellison MD Nov 24, 2019 11:27
[2019-11-24] MEDS: Nitroglycerin Patch 0.4mg TDERMAL SCH (12:01)
--- NOTE | 2019-11-24 12:13 | NUR ---
NURSE NOTES: Patient continues to be observed bedside to be resting comfortably in bed, appears confused, follows some commands however is restless and tries to pull at lines. Patient is being monitored on the aircrewman shows stable Afib. VSS is orally intubated with vent settings AC 16, TV 550, fio2 30%. Oral care was performed. NGT running Jevity 1.2 at 30ml/hr with 20 ml flush given. Patiño catheter draining YL urine to gravity with good amounts of urine. D5 1/2NS is running @ 75ml/hr, Heparin gtt on RH @ 14units/kg/hr. Patient has BL wrist restraints for safety for notable pulling of lines. Pulses are palpable and skin is intact. Safety measures are in place with bed locked in the lowest position, HOB elevated, alarmed with call light within reach. Will continue to monitor and follow MD plan of care. Addendum: 11/24/19 at 1232 by Fay Crum RN Heparin is running at 12 units/kg/hr
--- NOTE | 2019-11-24 14:51 | Internal Med Progress Note ---
Subjective Date of Service: Nov 24, 2019 Physician Name ZamarripaAbisai Attending Physician Claude Garza MD Current Medications Medications (Trade) Dose Ordered Sig/Cyndi Route PRN Reason Start Time Stop Time Status Last Admin Dose Admin Acetaminophen (Tylenol) 650 mg Q4H PRN NG Fever 11/21/19 13:00 12/21/19 08:14 Albuterol/ Ipratropium (Albuterol/ Ipratropium) 3 ml Q4H PRN HHN Shortness of Breath 11/24/19 10:11 11/29/19 10:10 Aspirin (ASA) 81 mg DAILY NG 11/23/19 09:00 01/07/20 08:59 11/24/19 08:21 Ceftriaxone Sodium 1 gm/ Dextrose 55 ml @ 110 mls/hr Q24H IVPB 11/21/19 23:00 11/28/19 22:59 11/23/19 23:25 Dextrose (Dextrose 50%) 25 ml Q30M PRN IV Hypoglycemia 11/21/19 08:15 02/19/20 08:14 Dextrose (Dextrose 50%) 50 ml Q30M PRN IV Hypoglycemia 11/21/19 08:15 02/19/20 08:14 Dextrose/Sodium Chloride 1,000 ml @ 75 mls/hr [id number] IV 11/21/19 13:00 12/21/19 12:59 11/24/19 08:18 Docusate Sodium (Colace) 100 mg THREE TIMES A DAY NG 11/21/19 13:00 12/21/19 12:59 11/24/19 08:21 Heparin Sodium/ Dextrose 500 ml @ 22.426 mls/ hr ADJUST PER PROTOCOL IV 11/24/19 05:45 12/24/19 05:44 11/24/19 05:45 Lorazepam (Ativan 2mg/ml 1ml) 2 mg Q4H PRN IV For Anxiety 11/21/19 08:15 11/28/19 08:14 11/23/19 10:25 Metoprolol Tartrate (Lopressor) 50 mg Q12HR NG 11/22/19 21:00 02/19/20 20:59 11/24/19 08:21 Morphine Sulfate (Morphine Sulfate) 4 mg Q4H PRN IVP For Pain 11/21/19 08:15 11/28/19 08:14 11/22/19 14:10 Nitroglycerin (Ntg) 1 patch Q24H TDERMAL 11/22/19 11:00 12/22/19 10:59 11/24/19 12:01 Ondansetron HCl (Zofran) 4 mg Q6H PRN IVP Nausea & Vomiting 11/21/19 08:15 12/21/19 08:14 Pantoprazole (Protonix) 40 mg Q12HR IV 11/21/19 21:00 12/21/19 09:38 11/24/19 08:21 Polyethylene Glycol (Miralax) 17 gm DAILYPRN PRN NG Constipation 11/21/19 13:00 12/21/19 08:14 Temazepam (Restoril) 15 mg HSPRN PRN NG Insomnia 11/21/19 13:00 11/28/19 08:14 Vancomycin HCl (Vanco rx to dose) 1 ea DAILY PRN MISC Per rx protocol 11/22/19 14:45 12/22/19 14:44 Allergies: Coded Allergies: LISINOPRIL (Verified Allergy, Unknown, 11/21/19) SIMVASTATIN (Verified Allergy, Unknown, 11/21/19) TERAZOSIN (Verified Allergy, Unknown, 11/21/19) ROS Limited/Unobtainable: Yes Subjective 83 YO M admitted with respiratory failure. Cover for [facility] Med-DR Garza. Intubated and sedated. ICU Objective Last Vital Signs Date Time Temp Pulse Resp B/P (MAP) Pulse Ox O2 Delivery O2 Flow Rate FiO2 11/24/19 14:01 71 16 134/80 (98) 98 11/24/19 13:17 30 11/24/19 12:00 Mechanical Ventilator 11/24/19 12:00 98.5 Laboratory Tests Test 11/24/19 04:30 11/24/19 07:26 11/24/19 07:30 11/24/19 11:50 White Blood Count 13.0 K/UL (4.8-10.8) H Red Blood Count 3.18 M/UL (4.70-6.10) L Hemoglobin 9.3 G/DL (14.2-18.0) L Hematocrit 28.9 % (42.0-52.0) L Mean Corpuscular Volume 91 FL (80-99) Mean Corpuscular Hemoglobin 29.3 PG (27.0-31.0) Mean Corpuscular Hemoglobin Concent 32.3 G/DL (32.0-36.0) Red Cell Distribution Width 17.7 % (11.6-14.8) H Platelet Count 388 K/UL (150-450) Mean Platelet Volume 4.6 FL (6.5-10.1) L Neutrophils (%) (Auto) 76.8 % (45.0-75.0) H Lymphocytes (%) (Auto) 10.0 % (20.0-45.0) L Monocytes (%) (Auto) 8.0 % (1.0-10.0) Eosinophils (%) (Auto) 4.7 % (0.0-3.0) H Basophils (%) (Auto) 0.5 % (0.0-2.0) Activated Partial Thromboplast Time 102 SEC (23-33) H 82 SEC (23-33) H Sodium Level 143 MMOL/L (136-145) Potassium Level 3.7 MMOL/L (3.5-5.1) Chloride Level 106 MMOL/L (98-107) Carbon Dioxide Level 26 MMOL/L (21-32) Anion Gap 11 mmol/L (5-15) Blood Urea Nitrogen 61 mg/dL (7-18) H Creatinine 5.5 MG/DL (0.55-1.30) H Estimat Glomerular Filtration Rate 12.1 mL/min (>60) Glucose Level 128 MG/DL (74-106) H Calcium Level 9.4 MG/DL (8.5-10.1) Phosphorus Level 2.9 MG/DL (2.5-4.9) Magnesium Level 2.2 MG/DL (1.8-2.4) Total Bilirubin 0.3 MG/DL (0.2-1.0) Aspartate Amino Transf (AST/SGOT) 16 U/L (15-37) Alanine Aminotransferase (ALT/SGPT) 16 U/L (12-78) Alkaline Phosphatase 54 U/L (46-116) Total Protein 7.5 G/DL (6.4-8.2) Albumin 2.6 G/DL (3.4-5.0) L Globulin 4.9 g/dL Albumin/Globulin Ratio 0.5 (1.0-2.7) L Random Vancomycin Level 15.2 ug/mL Arterial Blood pH 7.378 (7.350-7.450) Arterial Blood Partial Pressure CO2 42.9 mmHg (35.0-45.0) Arterial Blood Partial Pressure O2 72.1 mmHg (75.0-100.0) L Arterial Blood HCO3 24.7 mmol/L (22.0-26.0) Arterial Blood Oxygen Saturation 93.7 % (95-100) L Arterial Blood Base Excess -0.5 (-2-2) Shade Test Positive Urine Eosinophils None seen (NONE SEEN) Microbiology Date/Time Source Procedure Growth Status 11/22/19 15:08 Blood Blood Culture - Preliminary NO GROWTH AFTER 24 HOURS Resulted 11/22/19 15:00 Blood Blood Culture - Preliminary NO GROWTH AFTER 24 HOURS Resulted 11/22/19 17:40 Sputum Gram Stain - Final Resulted 11/22/19 17:40 Sputum Culture - Preliminary Gram Negative Bacillus 1 Resulted 11/21/19 17:10 Urine,Clean Catch Urine Culture - Preliminary Resulted Intake and Output 11/23/19 11/24/19 19:00 07:00 Intake Total 1511.630 ml 1714.6625 ml Output Total 430 ml 375 ml Balance 1081.630 ml 1339.6625 ml Free Water 100 ml 110 ml IV Total 1011.630 ml 1244.6625 ml Tube Feeding 360 ml 360 ml Other 40 ml Output Urine Total 430 ml 375 ml Objective PHYSICAL EXAMINATION: GENERAL: The patient is well-developed, well-nourished male, who is intubated and sedated in the intensive care unit. HEENT: Eyes, pupils are equal and responsive to light and accommodation. Extraocular movements are intact. NECK: Supple without lymphadenopathy. CHEST: Mech vent; Bilateral expiratory air sounds, otherwise clear to auscultation without rales. CARDIOVASCULAR: Regular rhythm and rate. S1 and S2 normal without murmurs, rubs, or gallops. ABDOMEN: Soft, nontender, and nondistended. Positive bowel sounds. No evidence of hepatosplenomegaly. Currently, no rebound or guarding noted. EXTREMITIES: Negative for clubbing, cyanosis, or edema. RECTAL/GENITAL: Not performed. NEUROLOGIC: Cranial nerves II through XII are grossly intact without focal deficits. Motor strength is 5/5 bilaterally. Deep tendon reflexes are 2+ plantar. Assessment/Plan Assessment/Plan ASSESSMENT: This is an 83-year-old male. 1. Respiratory failure. 2. Congestive heart failure. 3. Atrial fibrillation. 4. Altered mental status. 5. Urinary tract infection. 6. Renal failure. 7. Hypertension. 8. Alzheimer's dementia. 9. Benign prostatic hypertrophy. 10. urinary tract infection-gram neg nathanael 11. Sepsis-Staph Warneri TREATMENT: 1. Congestive heart failure. A Cardiology consultation has been obtained with Dr. Vasu Zaidi. We will follow recommendations of Cardiology. The patient is currently receiving intravenous Lasix. 2. Respiratory failure. A Pulmonary consultation has been obtained with Dr. Susannah Hightower. The patient is currently intubated in the intensive care unit. We will follow recommendations of Pulmonary. ABX=vanco and rocephin per ID=Dr Hicks 3. Atrial fibrillation as above. A Cardiology consultation has been obtained with Dr. Vasu Zaidi. 4. Renal failure. A Nephrology consultation has been obtained with Dr. Ellison. We will follow recommendations of Nephrology. 5. Hypertension. The patient is currently hypotensive in the intensive care unit. 6. Alzheimer's dementia. 7. Benign prostatic hypertrophy. 8. UTI=Gram neg nathanael; continue rocephin per ID 9. Sepsis=Staph Warneri-continue vanco per ID Abisai Zamarripa MD Nov 24, 2019 14:51
--- NOTE | 2019-11-24 16:40 | NUR ---
NURSE NOTES: Patient rests comfortably bedside. Patient is being monitored on the registered nurse cardiac telemetry which shows Afib that is stable. VSS. Patient is orally intubated with vent settings AC 16, TV 550, fio2 30%. Oral care has been performed. NGT running Jevity 1.2 at 30ml/hr with 50 ml flush given. Patiño catheter draining straw colored urine to gravity. D5 1/2NS is running @ 75ml/hr, Heparin gtt on RH @ 12units/kg/hr. Patient has BL wrist restraints for safety with pulses that are palpable and skin that is intact. Patient is arousable. Requested paper to write on and asked for "coffee" Patient was cleaned for a very formed greenish colored small stool. Safety measures are in place with bed locked in the lowest position, HOB elevated, alarmed with call light within reach. Will continue to monitor and follow MD plan of care.
--- NOTE | 2019-11-24 18:49 | Cardiology Progress Note ---
Assessment/Plan Problem List: (1) (HFpEF) heart failure with preserved ejection fraction (2) Acute on chronic renal insufficiency (3) Urinary tract infection (4) Respiratory failure (5) Pneumonia (6) History of hypertension (7) Paroxysmal A-fib (8) Moderate pulmonary arterial systolic hypertension Status: stable, unchanged Status Narrative Acute on chronic kidney disease AF- persistent, w/ controlled ventricular rates HFpEF respiratory failure, due to chf and pneumonia, On vent Assessment/Plan continue iv heparin for cva prevention in AF Metoprolol per ngt for ventricular rate control. Plans for hemodialysis w/ fluid removal - per nephrology Continue iv abx, respiratory treatments, vent support. Subjective ROS Limited/Unobtainable: Yes Subjective Cardiology for Dr. Zaidi Intubated, alert. c/o L sided abd pain Objective Last 24 Hour Vital Signs Date Time Temp Pulse Resp B/P (MAP) Pulse Ox O2 Delivery O2 Flow Rate FiO2 11/24/19 18:00 76 19 131/72 (91) 97 11/24/19 17:20 89 19 30 11/24/19 17:00 83 18 149/83 (105) 98 11/24/19 16:00 Mechanical Ventilator 11/24/19 16:00 98.6 84 21 147/83 (104) 95 11/24/19 16:00 86 11/24/19 16:00 30 11/24/19 15:00 71 15 125/80 (95) 97 11/24/19 14:59 72 16 30 11/24/19 14:01 71 16 134/80 (98) 98 11/24/19 13:17 76 16 30 11/24/19 13:00 72 17 141/77 (98) 97 11/24/19 12:01 126/80 11/24/19 12:00 Mechanical Ventilator 11/24/19 12:00 30 11/24/19 12:00 98.5 76 16 136/86 (103) 98 11/24/19 12:00 76 11/24/19 11:27 74 16 30 11/24/19 11:00 81 19 126/80 (95) 98 11/24/19 10:00 80 22 146/99 (115) 97 11/24/19 09:23 73 16 30 11/24/19 09:22 95 11/24/19 09:00 81 25 148/84 (105) 96 11/24/19 08:21 88 154/81 11/24/19 08:00 30 11/24/19 08:00 Mechanical Ventilator 11/24/19 08:00 98.1 82 19 125/88 (100) 98 11/24/19 08:00 80 11/24/19 07:00 88 19 140/86 (104) 97 11/24/19 07:00 75 21 30 11/24/19 06:30 79 20 11/24/19 06:00 88 19 128/85 (99) 97 11/24/19 05:22 84 19 30 11/24/19 05:00 98.7 101 21 148/98 (115) 96 11/24/19 04:00 96 11/24/19 04:00 30 11/24/19 04:00 Mechanical Ventilator 11/24/19 04:00 80 18 151/90 (110) 95 11/24/19 03:43 78 20 30 11/24/19 03:00 87 20 151/91 (111) 98 11/24/19 02:00 81 18 143/84 (103) 100 11/24/19 01:36 77 20 30 11/24/19 01:00 79 19 136/90 (105) 96 11/24/19 00:00 Mechanical Ventilator 11/24/19 00:00 83 11/24/19 00:00 98.7 84 21 146/97 (113) 96 11/24/19 00:00 30 11/23/19 23:28 79 18 30 11/23/19 23:00 78 20 144/95 (111) 95 11/23/19 22:00 92 19 147/93 (111) 99 11/23/19 21:45 91 147/93 11/23/19 21:14 74 19 30 11/23/19 21:00 17 155/91 (112) 99 11/23/19 20:00 30 11/23/19 20:00 Mechanical Ventilator 11/23/19 20:00 83 11/23/19 20:00 79 17 123/77 (92) 99 11/23/19 19:14 72 17 30 11/23/19 19:00 98.8 77 16 130/82 (98) 97 General Appearance: WD/WN, on vent EENT: PERRL/EOMI Neck: supple, no JVD Rhythm: Afib Cardiovascular: normal rate, irregularly irregular Respiratory/Chest: other - occ rhonchi. good air movement Abdomen: normal bowel sounds, non tender, soft Extremities: trace edema Intake and Output 11/23/19 11/24/19 19:00 07:00 Intake Total 1511.630 ml 1714.6625 ml Output Total 430 ml 375 ml Balance 1081.630 ml 1339.6625 ml Free Water 100 ml 110 ml IV Total 1011.630 ml 1244.6625 ml Tube Feeding 360 ml 360 ml Other 40 ml Output Urine Total 430 ml 375 ml Laboratory Tests Test 11/24/19 04:30 11/24/19 07:26 11/24/19 07:30 11/24/19 11:50 White Blood Count 13.0 K/UL (4.8-10.8) H Red Blood Count 3.18 M/UL (4.70-6.10) L Hemoglobin 9.3 G/DL (14.2-18.0) L Hematocrit 28.9 % (42.0-52.0) L Mean Corpuscular Volume 91 FL (80-99) Mean Corpuscular Hemoglobin 29.3 PG (27.0-31.0) Mean Corpuscular Hemoglobin Concent 32.3 G/DL (32.0-36.0) Red Cell Distribution Width 17.7 % (11.6-14.8) H Platelet Count 388 K/UL (150-450) Mean Platelet Volume 4.6 FL (6.5-10.1) L Neutrophils (%) (Auto) 76.8 % (45.0-75.0) H Lymphocytes (%) (Auto) 10.0 % (20.0-45.0) L Monocytes (%) (Auto) 8.0 % (1.0-10.0) Eosinophils (%) (Auto) 4.7 % (0.0-3.0) H Basophils (%) (Auto) 0.5 % (0.0-2.0) Activated Partial Thromboplast Time 102 SEC (23-33) H 82 SEC (23-33) H Sodium Level 143 MMOL/L (136-145) Potassium Level 3.7 MMOL/L (3.5-5.1) Chloride Level 106 MMOL/L (98-107) Carbon Dioxide Level 26 MMOL/L (21-32) Anion Gap 11 mmol/L (5-15) Blood Urea Nitrogen 61 mg/dL (7-18) H Creatinine 5.5 MG/DL (0.55-1.30) H Estimat Glomerular Filtration Rate 12.1 mL/min (>60) Glucose Level 128 MG/DL (74-106) H Calcium Level 9.4 MG/DL (8.5-10.1) Phosphorus Level 2.9 MG/DL (2.5-4.9) Magnesium Level 2.2 MG/DL (1.8-2.4) Total Bilirubin 0.3 MG/DL (0.2-1.0) Aspartate Amino Transf (AST/SGOT) 16 U/L (15-37) Alanine Aminotransferase (ALT/SGPT) 16 U/L (12-78) Alkaline Phosphatase 54 U/L (46-116) Total Protein 7.5 G/DL (6.4-8.2) Albumin 2.6 G/DL (3.4-5.0) L Globulin 4.9 g/dL Albumin/Globulin Ratio 0.5 (1.0-2.7) L Random Vancomycin Level 15.2 ug/mL Arterial Blood pH 7.378 (7.350-7.450) Arterial Blood Partial Pressure CO2 42.9 mmHg (35.0-45.0) Arterial Blood Partial Pressure O2 72.1 mmHg (75.0-100.0) L Arterial Blood HCO3 24.7 mmol/L (22.0-26.0) Arterial Blood Oxygen Saturation 93.7 % (95-100) L Arterial Blood Base Excess -0.5 (-2-2) Shade Test Positive Urine Eosinophils None seen (NONE SEEN) Microbiology Date/Time Source Procedure Growth Status 11/22/19 15:08 Blood Blood Culture - Preliminary NO GROWTH AFTER 24 HOURS Resulted 11/22/19 15:00 Blood Blood Culture - Preliminary NO GROWTH AFTER 24 HOURS Resulted 11/22/19 17:40 Sputum Gram Stain - Final Resulted 11/22/19 17:40 Sputum Culture - Preliminary Gram Negative Bacillus 1 Resulted Trina Morales MD Nov 24, 2019 18:49
--- NOTE | 2019-11-24 19:45 | NUR ---
NURSE NOTES: Received pt asleep, orally intubated, on ac mode, 02 sat >95%, Afib on the monitor but controlled. Bp stable afebrile. Pt tolerating fdg Jevity 1.2 at 30ml/hr, no residuals HOB kept elevated. On aspiration precautions. Pt has stage 2 left buttocks and healed skin tears on rthe left, All are coverref of optifoam dry and iintact. On p200 mattress. Turned q 2hrs prn wth good skin care done, Patiño to graviyty with lg amt of yellowish urine. Monitor I and O.monitor tlytes, Will continue to monitor.
--- NOTE | 2019-11-24 21:00 | NUR ---
NURSE NOTES: Pt has pressure wound on the sacral area. Picture taken was done. Drsg was changed.
[2019-11-24] MEDS: cefTRIAXone 1 GM in D5W 55 ML IVPB SCH (22:53)
[2019-11-24] MEDS: LORazepam Inj 2mg/ml 1ml IV PRN (23:06)
--- NOTE | 2019-11-24 23:08 | NUR ---
NURSE NOTES: Ativan 2 mg ivp was given due to pts anxiety.
[2019-11-25] VITALS (24 sets, daily range): BP systolic 125–156; BP diastolic 75–101
--- NOTE | 2019-11-25 01:00 | NUR ---
NURSE NOTES: Resting well with VSS.
--- NOTE | 2019-11-25 02:00 | NUR ---
NURSE NOTES: Suctioned tk beige secretions moderate in amt. oral care done.
--- NOTE | 2019-11-25 04:00 | NUR ---
NURSE NOTES: Complete bath with bed changed done.
--- NOTE | 2019-11-25 06:00 | NUR ---
NURSE NOTES: No resp distress noted . vss
[2019-11-25 06:12] LABS: EOSINOPHILS % (AUTO) 5.4 % (0.0-3.0); HEMATOCRIT 26.1 % (42.0-52.0); HEMOGLOBIN 8.4 G/DL (14.2-18.0); LYMPHOCYTES % (AUTO) 12.3 % (20.0-45.0); MEAN CORPUSCULAR VOLUME 90 FL (80-99); MONOCYTES % (AUTO) 8.4 % (1.0-10.0); PLATELET COUNT 373 K/UL (150-450); RED CELL DISTRIBUTION WIDTH 18.6 % (11.6-14.8); WHITE BLOOD COUNT 11.5 K/UL (4.8-10.8)
[2019-11-25 06:28] LABS: ALANINE AMINOTRANSFERASE 12 U/L (12-78); ALBUMIN 2.3 G/DL (3.4-5.0); ALBUMIN/GLOBULIN RATIO 0.5 (1.0-2.7); ALKALINE PHOSPHATASE 51 U/L (46-116); ANION GAP 10 mmol/L (5-15); ASPARTATE AMINO TRANSFERASE 11 U/L (15-37); BILIRUBIN,TOTAL 0.3 MG/DL (0.2-1.0); BLOOD UREA NITROGEN 58 mg/dL (7-18); CALCIUM 9.2 MG/DL (8.5-10.1); CARBON DIOXIDE 27 MMOL/L (21-32); CHLORIDE 104 MMOL/L (98-107); CREATININE 5.3 MG/DL (0.55-1.30); POTASSIUM 3.5 MMOL/L (3.5-5.1); SODIUM 141 MMOL/L (136-145)
[2019-11-25] MEDS: Heparin 25,000u/D5W 500ml 500 ML IV SCH (06:57)
--- NOTE | 2019-11-25 07:40 | NUR ---
HAND-OFF: Report given to Shad LYNCH for continuing of care..
--- NOTE | 2019-11-25 07:41 | NUR ---
NURSE NOTES: Report received from [employer]. Pt is resting in bed. Awake and alert. Able to follow simple commands. Can be impulsive at times. Continued bilateral soft wrist restraints. A-fib controlled on pvc monitor. ETT 7.5/ 25cm at lip line. AC 16, TV550, FiO2 n30%, Right nare NGT patent and asymptomatic. Jevity 1.2 is running at 30cc/hr. No residual noted. Patiño in place draining to gravity. IV to right AC G20, left AC G20, and left hand G20 patent and asymptomatic. Bed in lowest position. Side rails up x 3. Bed in lowest position. Side rails up x3. Will resume plan of care.
--- NOTE | 2019-11-25 08:25 | NUR ---
NURSE NOTES: Microbiology reported that patient is positive for ESBL urine. Will notify ID.
[2019-11-25] MEDS: Docusate 100mg/10ml Liq NG SCH ×3 (08:41→18:27)
[2019-11-25] MEDS: Aspirin Baby 81mg NG SCH (08:41)
[2019-11-25] MEDS: Pantoprazole Inj IV SCH ×2 (08:42→20:43)
[2019-11-25] MEDS: Metoprolol Tartrate 50mg tab NG SCH ×2 (08:42→20:43)
--- NOTE | 2019-11-25 08:45 | NUR ---
NURSE NOTES: Weaning with CPAP, PS 8 done for 5 minutes. Pt started using accessary muscles and RR became faster.. Pt is back to AC mode.
--- NOTE | 2019-11-25 09:23 | NUR ---
NURSE NOTES: ABG result came out. Will notify keg raiser.
[2019-11-25] MEDS ORDERED: 1/2 NS 1000ml IV ONE (09:52)
[2019-11-25] MEDS ORDERED: NS 275ml ONE (09:52)
[2019-11-25] MEDS ORDERED: D5 1/2NS 1000ml IV ONE (09:52)
--- NOTE | 2019-11-25 10:25 | Nephrology Progress Note ---
Assessment/Plan Problem List: (1) Acute on chronic renal insufficiency Assessment: Serum creatinine gradually decreasing (2) Acute hypercapnic respiratory failure (3) Anemia in chronic kidney disease (CKD) (4) BPH (benign prostatic hyperplasia) Assessment Acute renal failure Possible underlying chronic kidney failure Hyperkalemia Anemia other conditions: (1) Acute hypercapnic respiratory failure (2) Paroxysmal A-fib (3) Anemia, chronic renal failure (4) History of hypertension (5) Alzheimer's dementia (6) Chronic hepatitis (7) BPH (benign prostatic hyperplasia) Plan Lopressor dose adjusted Nitrate Slow hydration Monitor intake and output Monitor renal parameters Avoid nephrotoxic's Kidney ultrasound results noted indicative of chronicity 2D echocardiogram result noted ejection fraction 55% Anemia work-up noted Per orders Subjective ROS Limited/Unobtainable: Yes Objective Objective Last 24 Hour Vital Signs Date Time Temp Pulse Resp B/P (MAP) Pulse Ox O2 Delivery O2 Flow Rate FiO2 11/25/19 08:45 97 25 30 11/25/19 08:45 30 11/25/19 08:45 96 11/25/19 08:42 108 149/86 11/25/19 08:40 87 27 30 30 11/25/19 08:40 30 11/25/19 06:50 77 18 30 11/25/19 06:30 79 20 11/25/19 06:00 73 18 140/83 (102) 98 11/25/19 05:18 84 18 30 11/25/19 05:00 79 18 148/87 (107) 98 11/25/19 04:00 Mechanical Ventilator 11/25/19 04:00 30 11/25/19 04:00 72 11/25/19 04:00 99.0 63 126/79 (95) 98 11/25/19 03:25 70 18 30 11/25/19 03:00 66 141/75 (97) 98 16 11/25/19 02:00 69 21 126/85 (99) 99 11/25/19 01:30 69 16 30 11/25/19 01:00 73 21 125/78 (94) 99 11/25/19 00:00 30 11/25/19 00:00 99.0 81 21 140/85 (103) 99 11/25/19 00:00 86 11/25/19 00:00 Mechanical Ventilator 11/24/19 23:30 77 16 30 11/24/19 23:00 82 138/90 (106) 99 11/24/19 22:00 72 21 140/88 (105) 99 11/24/19 21:30 82 19 30 11/24/19 21:12 84 126/80 11/24/19 21:00 75 21 126/80 (95) 96 11/24/19 20:00 99.2 72 19 129/76 (93) 97 11/24/19 20:00 78 11/24/19 20:00 Mechanical Ventilator 11/24/19 19:30 85 20 30 11/24/19 18:00 76 19 131/72 (91) 97 11/24/19 17:20 89 19 30 11/24/19 17:00 83 18 149/83 (105) 98 11/24/19 16:00 Mechanical Ventilator 11/24/19 16:00 98.6 84 21 147/83 (104) 95 11/24/19 16:00 86 11/24/19 16:00 30 11/24/19 15:00 71 15 125/80 (95) 97 11/24/19 14:59 72 16 30 11/24/19 14:01 71 16 134/80 (98) 98 11/24/19 13:17 76 16 30 11/24/19 13:00 72 17 141/77 (98) 97 11/24/19 12:01 126/80 11/24/19 12:00 Mechanical Ventilator 11/24/19 12:00 30 11/24/19 12:00 98.5 76 16 136/86 (103) 98 11/24/19 12:00 76 11/24/19 11:27 74 16 30 11/24/19 11:00 81 19 126/80 (95) 98 Intake and Output 11/24/19 11/25/19 19:00 07:00 Intake Total 1781.676 ml 1416.686 ml Output Total 910 ml 1270 ml Balance 871.676 ml 146.686 ml Free Water 30 ml 60 ml IV Total 1341.676 ml 996.686 ml Tube Feeding 360 ml 360 ml Other 50 ml Output Urine Total 910 ml 1270 ml # Bowel Movements 2 4 Current Medications Medications (Trade) Dose Ordered Sig/Cyndi Route PRN Reason Start Time Stop Time Status Last Admin Dose Admin Acetaminophen (Tylenol) 650 mg Q4H PRN NG Fever 11/21/19 13:00 12/21/19 08:14 Albuterol/ Ipratropium (Albuterol/ Ipratropium) 3 ml Q4H PRN HHN Shortness of Breath 11/24/19 10:11 11/29/19 10:10 Aspirin (ASA) 81 mg DAILY NG 11/23/19 09:00 01/07/20 08:59 11/25/19 08:41 Ceftriaxone Sodium 1 gm/ Dextrose 55 ml @ 110 mls/hr Q24H IVPB 11/21/19 23:00 11/28/19 22:59 11/24/19 22:53 Dextrose (Dextrose 50%) 25 ml Q30M PRN IV Hypoglycemia 11/21/19 08:15 02/19/20 08:14 Dextrose (Dextrose 50%) 50 ml Q30M PRN IV Hypoglycemia 11/21/19 08:15 02/19/20 08:14 Dextrose/Sodium Chloride 1,000 ml @ 75 mls/hr [id number] IV 11/21/19 13:00 12/21/19 12:59 11/24/19 21:13 Docusate Sodium (Colace) 100 mg THREE TIMES A DAY NG 11/21/19 13:00 12/21/19 12:59 11/25/19 08:41 Heparin Sodium/ Dextrose 500 ml @ 22.426 mls/ hr ADJUST PER PROTOCOL IV 11/24/19 05:45 12/24/19 05:44 11/25/19 06:57 Lorazepam (Ativan 2mg/ml 1ml) 2 mg Q4H PRN IV For Anxiety 11/21/19 08:15 11/28/19 08:14 11/24/19 23:06 Metoprolol Tartrate (Lopressor) 50 mg Q12HR NG 11/22/19 21:00 02/19/20 20:59 11/25/19 08:42 Morphine Sulfate (Morphine Sulfate) 4 mg Q4H PRN IVP For Pain 11/21/19 08:15 11/28/19 08:14 11/22/19 14:10 Nitroglycerin (Ntg) 1 patch Q24H TDERMAL 11/22/19 11:00 12/22/19 10:59 11/24/19 12:01 Ondansetron HCl (Zofran) 4 mg Q6H PRN IVP Nausea & Vomiting 11/21/19 08:15 12/21/19 08:14 Pantoprazole (Protonix) 40 mg Q12HR IV 11/21/19 21:00 12/21/19 09:38 11/25/19 08:42 Polyethylene Glycol (Miralax) 17 gm DAILYPRN PRN NG Constipation 11/21/19 13:00 12/21/19 08:14 Temazepam (Restoril) 15 mg HSPRN PRN NG Insomnia 11/21/19 13:00 11/28/19 08:14 Vancomycin HCl (Vanco rx to dose) 1 ea DAILY PRN MISC Per rx protocol 11/22/19 14:45 12/22/19 14:44 Laboratory Tests 11/24/19 11:50: Activated Partial Thromboplast Time 82H 11/25/19 05:00: Activated Partial Thromboplast Time 72H, White Blood Count 11.5H, Red Blood Count 2.90L, Hemoglobin 8.4L, Hematocrit 26.1L, Mean Corpuscular Volume 90, Mean Corpuscular Hemoglobin 29.0, Mean Corpuscular Hemoglobin Concent 32.2, Red Cell Distribution Width 18.6H, Platelet Count 373, Mean Platelet Volume 4.4L, Neutrophils (%) (Auto) 73.0, Lymphocytes (%) (Auto) 12.3L, Monocytes (%) (Auto) 8.4, Eosinophils (%) (Auto) 5.4H, Basophils (%) (Auto) 1.0, Sodium Level 141, Potassium Level 3.5, Chloride Level 104, Carbon Dioxide Level 27, Anion Gap 10, Blood Urea Nitrogen 58H, Creatinine 5.3H, Estimat Glomerular Filtration Rate 12.6, Glucose Level 114H, Uric Acid 8.7H, Calcium Level 9.2, Phosphorus Level 3.0, Magnesium Level 2.3, Total Bilirubin 0.3, Aspartate Amino Transf (AST/SGOT ) 11L, Alanine Aminotransferase (ALT/SGPT) 12, Alkaline Phosphatase 51, Troponin I 0.022, Total Protein 7.0, Albumin 2.3L, Globulin 4.7, Albumin/ Globulin Ratio 0.5L 11/25/19 09:00: Arterial Blood pH 7.380, Arterial Blood Partial Pressure CO2 42.8, Arterial Blood Partial Pressure O2 71.6L, Arterial Blood HCO3 24.8, Arterial Blood Oxygen Saturation 94.3L, Arterial Blood Base Excess -0.4, Shade Test Positive Height (Feet): 5 Height (Inches): 10.00 Weight (Pounds): 208 General Appearance: no apparent distress EENT: other - Remains intubated and vented Cardiovascular: other - Variable rate Respiratory/Chest: decreased breath sounds Abdomen: distended Reynold Ellison MD Nov 25, 2019 10:25
--- NOTE | 2019-11-25 10:41 | Diagnostic Imaging Report ---
EXAM: XR Chest, 1 View CLINICAL HISTORY: SOB TECHNIQUE: Frontal view of the chest. COMPARISON: CXR of 11/24/[address] of 11/23/19. FINDINGS: Tip of the endotracheal tube is again appropriately positioned, projecting 3.8 cm above the stephania. Persistent right basilar opacity, likely combination of lower lobe consolidation/atelectasis and pleural effusion. Cardiomegaly. Aortic calcification. No pneumothorax. Tip and sidehole of the enteric tube project in the gastric body. IMPRESSION: Stable examination demonstrating right basilar opacity, likely combination of lower lobe atelectasis/consolidation and pleural effusion.
--- NOTE | 2019-11-25 11:01 | NUR ---
RD ASSESSMENT & RECOMMENDATIONS SEE CARE ACTIVITY FOR COMPLETE ASSESSMENT DAILY ESTIMATED NEEDS: Needs based on Critical care, wound, ARF/ 80kg abw 22-28 kcals/kg [id number] total kcals 0.8-1.0 (increase w/ renal improvement) g protein/kg 64-80 g total protein Fluids per MD NUTRITION DIAGNOSIS: * Swallowing difficulty R/T respiratory status as evidenced by pt orally intubated, on OGT feeding. * Altered nutrition related lab values R/T ARF on CKD as evidenced by elev creat (6.4 -> 5.3), elev K (6.1*->wnl), elev BNP (>89421). (CURRENT TF:Jevity 1.2 @ 30ml/hr x 24 hrs-> now raised to 40ml/hr) ENTERAL NUTRITION RECOMMENDATIONS: Nepro @ 40ml/hr x 24 hrs to provide 960ml, 1728kcal, 78g prot, 698ml free water * Rec NEPRO at this time given hyperkalemia upon adm, creat 6.4 (now 5.3) * Initiate Nepro @ 10ml/hr x 6hrs, advance 10ml q 4-6 hrs as tolerated to goal rate. * HOB over 30 degrees/ water flush per MD * TF @ goal will meet 98% est kcal and 100% est prot needs ADDITIONAL RECOMMENDATIONS: * Per SNF: HT=71" RU=[id number] * Monitor renal fxn and lytes: creat 6.4, K 6.1 upon adm -> monitor continued need for renal TF formula of Nepro * Wound healing: add Nephrovite x 1 add Petros BID as tolerated
[2019-11-25] MEDS: D5 1/2NS 1,000 ML IV SCH (11:15)
[2019-11-25] MEDS: Nitroglycerin Patch 0.4mg TDERMAL SCH (11:15)
--- NOTE | 2019-11-25 11:29 | Pulmonolgy Critical Care Note ---
Critical Care - Asmt/Plan Assessment/Plan: ASSESSMENT Sepsis with bacteremia -real vs contaminant Acute hypoxemic hypercapnic respiratory failure requiring intubation UTI with E coli ESBL and Pseudomonas Acute on chronic renal failure Acute toxic metabolic encephalopathy Atrial fibrillation with rapid ventricular response Elevated troponin, likely due to renal failure CHF Anemia of chronic kidney disease Moderate pulmonary hypertension Hypertension BPH History of hepatitis C History of latent TB PLAN OF CARE vent support pulmonary toilet so far not tolerated weaning fup with ABG and CXR CT chest noted marlen pleural effusion venous duplex BLE negative Echo with EF 55-60, moderate pulmonary HTN, no vegetation heparin gtt BB for rate control continue ASA ,BB, and nitro ; trend troponin cardio follows abx as per ID BCX 11/20 + Staph warneri, ? contamination BCX 11/21 NGTD UCX 11/20 + Pseudomonas, E coli ESBL SCX 11/21 +Pseudomonas discussed new results withMINA Hicks - will dc Ceftriaxone and start Meropenem renal dosing IVF monitor renal parameters lytes; correct lytes as needed renal US with chronic renal disease avoid nephrotoxics nephro follows ? HD monitor H&H with goal to keep hemoglobin above 7 anemia work-up c/w anemia of chronic disease GI prophylaxis supportive care case discussed and evaluated by supervising physician Critical Care - Objective Last 24 Hour Vital Signs Date Time Temp Pulse Resp B/P (MAP) Pulse Ox O2 Delivery O2 Flow Rate FiO2 11/25/19 11:15 151/97 11/25/19 11:00 77 17 151/97 (115) 97 11/25/19 11:00 66 14 139/80 (99) 97 11/25/19 10:55 72 16 30 11/25/19 10:00 66 14 139/80 (99) 97 11/25/19 09:00 79 24 147/89 (108) 98 11/25/19 08:45 97 25 30 11/25/19 08:45 30 11/25/19 08:45 96 11/25/19 08:42 108 149/86 11/25/19 08:40 87 27 30 30 11/25/19 08:40 30 11/25/19 08:00 Mechanical Ventilator 11/25/19 08:00 99.0 83 22 149/86 (107) 97 11/25/19 07:49 78 11/25/19 07:00 75 14 147/81 (103) 96 11/25/19 06:50 77 18 30 11/25/19 06:30 79 20 11/25/19 06:00 73 18 140/83 (102) 98 11/25/19 05:18 84 18 30 11/25/19 05:00 79 18 148/87 (107) 98 11/25/19 04:00 Mechanical Ventilator 11/25/19 04:00 30 11/25/19 04:00 72 11/25/19 04:00 99.0 63 126/79 (95) 98 11/25/19 03:25 70 18 30 11/25/19 03:00 66 141/75 (97) 98 16 11/25/19 02:00 69 21 126/85 (99) 99 11/25/19 01:30 69 16 30 11/25/19 01:00 73 21 125/78 (94) 99 11/25/19 00:00 30 11/25/19 00:00 99.0 81 21 140/85 (103) 99 11/25/19 00:00 86 11/25/19 00:00 Mechanical Ventilator 11/24/19 23:30 77 16 30 11/24/19 23:00 82 138/90 (106) 99 11/24/19 22:00 72 21 140/88 (105) 99 11/24/19 21:30 82 19 30 11/24/19 21:12 84 126/80 11/24/19 21:00 75 21 126/80 (95) 96 11/24/19 20:00 99.2 72 19 129/76 (93) 97 11/24/19 20:00 78 11/24/19 20:00 Mechanical Ventilator 11/24/19 19:30 85 20 30 11/24/19 18:00 76 19 131/72 (91) 97 11/24/19 17:20 89 19 30 11/24/19 17:00 83 18 149/83 (105) 98 11/24/19 16:00 Mechanical Ventilator 11/24/19 16:00 98.6 84 21 147/83 (104) 95 11/24/19 16:00 86 11/24/19 16:00 30 11/24/19 15:00 71 15 125/80 (95) 97 11/24/19 14:59 72 16 30 11/24/19 14:01 71 16 134/80 (98) 98 3/21/20 13:17 76 16 30 11/24/19 13:00 72 17 141/77 (98) 97 11/24/19 12:01 126/80 11/24/19 12:00 Mechanical Ventilator 11/24/19 12:00 30 11/24/19 12:00 98.5 76 16 136/86 (103) 98 11/24/19 12:00 76 11/24/19 11:27 74 16 30 Objective: Status: asleep, easily arousable , orally intubated on Vent AC 550-16-30% Condition: critical HEENT: atraumatic, normocephalic, OP with ET in palce, intact Lungs: bibasilar crackles Heart: HR/BP stable Abdomen: soft, non-tender, active bowel sounds, feeding tube Extremities: trace edema Micro: Microbiology Date/Time Source Procedure Growth Status 11/22/19 15:08 Blood Blood Culture - Preliminary NO GROWTH AFTER 48 HOURS Resulted 11/22/19 15:00 Blood Blood Culture - Preliminary NO GROWTH AFTER 48 HOURS Resulted 11/22/19 17:40 Sputum Gram Stain - Final Complete 11/22/19 17:40 Sputum Culture - Final Pseudomonas Aeruginosa Complete Critical Care - Subjective ROS Limited/Unobtainable: Yes Interval Events: remains intubated, started on weaning protocol : was on CPAP earlier this am, tolerated only very short time, then desaturated and was placed back on vent AC ABG after placement on vent AC stable afebrile, mild leucocytosis, trending down creat down to 5.3 Condition: critical IV Access: peripheral EKG Rhythm: Sinus Rhythm FI02: 30 Vent Support Breath Rate: 16 Vent Support Mode: AC Vent Tidal Volume: 550 Sputum Amount: Moderate PEEP: 0.0 PIP: 39 Fluids: D51/2 NS at 75 Tube Feeding Amount: 30 I&O: Intake and Output 11/24/19 11/25/19 19:00 07:00 Intake Total 1781.676 ml 1514.112 ml Output Total 910 ml 1270 ml Balance 871.676 ml 244.112 ml Free Water 30 ml 60 ml IV Total 1341.676 ml 1094.112 ml Tube Feeding 360 ml 360 ml Other 50 ml Output Urine Total 910 ml 1270 ml # Bowel Movements 2 4 CXR: CXR 11/24 - right basilar opacity, likely combination of lower lobe atelectasis/ consolidation and pleural effusion. ET-Tube: 7.5 ET Position: 25 Olga Tobin NP Nov 25, 2019 11:29
--- NOTE | 2019-11-25 11:29 | NUR ---
NURSE NOTES: Notified Olga Tobin NP that patient was weaned for 5 minutes on CPAP and PS 8. ABG result came back. Olga said that she will check the ABG result.
--- NOTE | 2019-11-25 13:21 | NUR ---
NURSE NOTES: Turned and repositioned pt. Oral care done. O2 sat 99-100%. Afebrile. Will continue to monitor.
[2019-11-25] MEDS: Meropenem 500 MG in NS 55 ML IVPB SCH ×2 (13:28→20:44)
--- NOTE | 2019-11-25 15:30 | NUR ---
NURSE NOTES: Pt is sleeping in bed. O2 sat 98-99% on AC mode. No acute distress noted.
--- NOTE | 2019-11-25 16:03 | Internal Med Progress Note ---
Subjective Date of Service: Nov 25, 2019 Physician Name MarilouAbisai Attending Physician Claude Garza MD Current Medications Medications (Trade) Dose Ordered Sig/Cyndi Route PRN Reason Start Time Stop Time Status Last Admin Dose Admin Acetaminophen (Tylenol) 650 mg Q4H PRN NG Fever 11/21/19 13:00 12/21/19 08:14 Albuterol/ Ipratropium (Albuterol/ Ipratropium) 3 ml Q4H PRN HHN Shortness of Breath 11/24/19 10:11 11/29/19 10:10 Aspirin (ASA) 81 mg DAILY NG 11/23/19 09:00 01/07/20 08:59 11/25/19 08:41 Dextrose (Dextrose 50%) 25 ml Q30M PRN IV Hypoglycemia 11/21/19 08:15 02/19/20 08:14 Dextrose (Dextrose 50%) 50 ml Q30M PRN IV Hypoglycemia 11/21/19 08:15 02/19/20 08:14 Dextrose/Sodium Chloride 1,000 ml @ 75 mls/hr [id number] IV 11/21/19 13:00 12/21/19 12:59 11/25/19 11:15 Docusate Sodium (Colace) 100 mg THREE TIMES A DAY NG 11/21/19 13:00 12/21/19 12:59 11/25/19 13:28 Heparin Sodium/ Dextrose 500 ml @ 22.426 mls/ hr ADJUST PER PROTOCOL IV 11/24/19 05:45 12/24/19 05:44 11/25/19 06:57 Lorazepam (Ativan 2mg/ml 1ml) 2 mg Q4H PRN IV For Anxiety 11/21/19 08:15 11/28/19 08:14 11/24/19 23:06 Meropenem 500 mg/ Sodium Chloride 55 ml @ 110 mls/hr Q12HR IVPB 11/25/19 14:00 11/30/19 13:59 11/25/19 13:28 Metoprolol Tartrate (Lopressor) 50 mg Q12HR NG 11/22/19 21:00 02/19/20 20:59 11/25/19 08:42 Morphine Sulfate (Morphine Sulfate) 4 mg Q4H PRN IVP For Pain 11/21/19 08:15 11/28/19 08:14 11/22/19 14:10 Nitroglycerin (Ntg) 1 patch Q24H TDERMAL 11/22/19 11:00 12/22/19 10:59 11/25/19 11:15 Ondansetron HCl (Zofran) 4 mg Q6H PRN IVP Nausea & Vomiting 11/21/19 08:15 12/21/19 08:14 Pantoprazole (Protonix) 40 mg Q12HR IV 11/21/19 21:00 12/21/19 09:38 11/25/19 08:42 Polyethylene Glycol (Miralax) 17 gm DAILYPRN PRN NG Constipation 11/21/19 13:00 12/21/19 08:14 Temazepam (Restoril) 15 mg HSPRN PRN NG Insomnia 11/21/19 13:00 11/28/19 08:14 Vancomycin HCl (Vanco rx to dose) 1 ea DAILY PRN MISC Per rx protocol 11/22/19 14:45 12/22/19 14:44 Allergies: Coded Allergies: LISINOPRIL (Verified Allergy, Unknown, 11/21/19) SIMVASTATIN (Verified Allergy, Unknown, 11/21/19) TERAZOSIN (Verified Allergy, Unknown, 11/21/19) ROS Limited/Unobtainable: Yes Subjective 83 YO M admitted with respiratory failure. Now pneumonia, UTI and sepsis. Cover for [facility] Med-DR Garza. Intubated and sedated. ICU Objective Last Vital Signs Date Time Temp Pulse Resp B/P (MAP) Pulse Ox O2 Delivery O2 Flow Rate FiO2 11/25/19 15:10 72 18 30 11/25/19 15:00 142/88 (106) 98 11/25/19 13:00 98.7 11/25/19 12:00 Mechanical Ventilator Laboratory Tests Test 11/25/19 05:00 11/25/19 09:00 White Blood Count 11.5 K/UL (4.8-10.8) H Red Blood Count 2.90 M/UL (4.70-6.10) L Hemoglobin 8.4 G/DL (14.2-18.0) L Hematocrit 26.1 % (42.0-52.0) L Mean Corpuscular Volume 90 FL (80-99) Mean Corpuscular Hemoglobin 29.0 PG (27.0-31.0) Mean Corpuscular Hemoglobin Concent 32.2 G/DL (32.0-36.0) Red Cell Distribution Width 18.6 % (11.6-14.8) H Platelet Count 373 K/UL (150-450) Mean Platelet Volume 4.4 FL (6.5-10.1) L Neutrophils (%) (Auto) 73.0 % (45.0-75.0) Lymphocytes (%) (Auto) 12.3 % (20.0-45.0) L Monocytes (%) (Auto) 8.4 % (1.0-10.0) Eosinophils (%) (Auto) 5.4 % (0.0-3.0) H Basophils (%) (Auto) 1.0 % (0.0-2.0) Activated Partial Thromboplast Time 72 SEC (23-33) H Sodium Level 141 MMOL/L (136-145) Potassium Level 3.5 MMOL/L (3.5-5.1) Chloride Level 104 MMOL/L (98-107) Carbon Dioxide Level 27 MMOL/L (21-32) Anion Gap 10 mmol/L (5-15) Blood Urea Nitrogen 58 mg/dL (7-18) H Creatinine 5.3 MG/DL (0.55-1.30) H Estimat Glomerular Filtration Rate 12.6 mL/min (>60) Glucose Level 114 MG/DL (74-106) H Uric Acid 8.7 MG/DL (2.6-7.2) H Calcium Level 9.2 MG/DL (8.5-10.1) Phosphorus Level 3.0 MG/DL (2.5-4.9) Magnesium Level 2.3 MG/DL (1.8-2.4) Total Bilirubin 0.3 MG/DL (0.2-1.0) Aspartate Amino Transf (AST/SGOT) 11 U/L (15-37) L Alanine Aminotransferase (ALT/SGPT) 12 U/L (12-78) Alkaline Phosphatase 51 U/L (46-116) Troponin I 0.022 ng/mL (0.000-0.056) Total Protein 7.0 G/DL (6.4-8.2) Albumin 2.3 G/DL (3.4-5.0) L Globulin 4.7 g/dL Albumin/Globulin Ratio 0.5 (1.0-2.7) L Arterial Blood pH 7.380 (7.350-7.450) Arterial Blood Partial Pressure CO2 42.8 mmHg (35.0-45.0) Arterial Blood Partial Pressure O2 71.6 mmHg (75.0-100.0) L Arterial Blood HCO3 24.8 mmol/L (22.0-26.0) Arterial Blood Oxygen Saturation 94.3 % (95-100) L Arterial Blood Base Excess -0.4 (-2-2) Shade Test Positive Microbiology Date/Time Source Procedure Growth Status 11/22/19 17:40 Sputum Gram Stain - Final Complete 11/22/19 17:40 Sputum Culture - Final Pseudomonas Aeruginosa Complete Intake and Output 11/24/19 11/25/19 19:00 07:00 Intake Total 1781.676 ml 1514.112 ml Output Total 910 ml 1270 ml Balance 871.676 ml 244.112 ml Free Water 30 ml 60 ml IV Total 1341.676 ml 1094.112 ml Tube Feeding 360 ml 360 ml Other 50 ml Output Urine Total 910 ml 1270 ml # Bowel Movements 2 4 Objective PHYSICAL EXAMINATION: GENERAL: The patient is well-developed, well-nourished male, who is intubated and sedated in the intensive care unit. HEENT: Eyes, pupils are equal and responsive to light and accommodation. Extraocular movements are intact. NECK: Supple without lymphadenopathy. CHEST: Mech vent; Bilateral expiratory air sounds, otherwise clear to auscultation without rales. CARDIOVASCULAR: Regular rhythm and rate. S1 and S2 normal without murmurs, rubs, or gallops. ABDOMEN: Soft, nontender, and nondistended. Positive bowel sounds. No evidence of hepatosplenomegaly. Currently, no rebound or guarding noted. EXTREMITIES: Negative for clubbing, cyanosis, or edema. RECTAL/GENITAL: Not performed. NEUROLOGIC: Cranial nerves II through XII are grossly intact without focal deficits. Motor strength is 5/5 bilaterally. Deep tendon reflexes are 2+ plantar. Assessment/Plan Assessment/Plan ASSESSMENT: This is an 83-year-old male. 1. Respiratory failure. 2. Congestive heart failure. 3. Atrial fibrillation. 4. Altered mental status. 5. Urinary tract infection. 6. Renal failure. 7. Hypertension. 8. Alzheimer's dementia. 9. Benign prostatic hypertrophy. 10. urinary tract infection-ESBL E. Coli and pseudamonas aeruginosa. 11. Sepsis-Staph Warneri 12. pneumonia=pseudamonas aeruginosa TREATMENT: 1. Congestive heart failure. A Cardiology consultation has been obtained with Dr. Vasu Zaidi. We will follow recommendations of Cardiology. The patient is currently receiving intravenous Lasix. 2. Respiratory failure. A Pulmonary consultation has been obtained with Dr. Susannah Hightower. The patient is currently intubated in the intensive care unit. We will follow recommendations of Pulmonary. ABX=meropenem per ID= Dr Hicks 3. Atrial fibrillation as above. A Cardiology consultation has been obtained with Dr. Vasu Zaidi. 4. Renal failure. A Nephrology consultation has been obtained with Dr. Ellison. We will follow recommendations of Nephrology. 5. Hypertension. The patient is currently hypotensive in the intensive care unit. 6. Alzheimer's dementia. 7. Benign prostatic hypertrophy. 8. ABX = meropenem per ID Abisai Zamarripa MD Nov 25, 2019 16:03
--- NOTE | 2019-11-25 16:55 | NUR ---
NURSE NOTES: Cleaned pt for 1 small brown soft formed BM. Turned and repositioned pt. No acute distress noted. Dr Zamarripa here to see the patient. Updated him with pt's current condition. No new orders.
--- NOTE | 2019-11-25 17:30 | Cardiology Progress Note ---
Assessment/Plan Problem List: (1) (HFpEF) heart failure with preserved ejection fraction (2) Acute on chronic renal insufficiency (3) Urinary tract infection (4) Respiratory failure (5) Pneumonia (6) History of hypertension (7) Paroxysmal A-fib (8) Moderate pulmonary arterial systolic hypertension Status: stable, unchanged Status Narrative Polymicrobial sepsis ( Sputum w/ pseudomonas, UTI w/ E Coli and pseudomonas, and Staph warneri bacteremia Acute on chronic kidney disease AF- persistent, w/ controlled ventricular rates HFpEF respiratory failure, due to chf and pneumonia, On vent w/ unsuccessful weaning trial today Assessment/Plan IV antibiotics per ID continue iv heparin for cva prevention in AF and metoprolol per ngt for ventricular rate control. Lasix prn for vol overload. XR today does not appear w/ CHF RF followed by nephrology. Subjective ROS Limited/Unobtainable: Yes Subjective Cardiology for Dr. Zaidi Intubated, alert. Events: Failed weaning trial earlier today (tachypneic, + accessory muscle use) Objective Last 24 Hour Vital Signs Date Time Temp Pulse Resp B/P (MAP) Pulse Ox O2 Delivery O2 Flow Rate FiO2 11/25/19 16:42 77 16 30 11/25/19 16:14 81 11/25/19 16:00 30 11/25/19 16:00 99.2 75 21 149/82 (104) 99 11/25/19 16:00 Mechanical Ventilator 11/25/19 15:10 72 18 30 11/25/19 15:00 76 15 142/88 (106) 98 11/25/19 14:00 71 14 152/93 (112) 99 11/25/19 13:02 80 18 30 11/25/19 13:00 98.7 80 17 139/100 (113) 99 11/25/19 12:00 Mechanical Ventilator 11/25/19 12:00 75 15 156/91 (112) 97 11/25/19 11:15 151/97 11/25/19 11:06 70 11/25/19 11:00 77 17 151/97 (115) 97 11/25/19 11:00 66 14 139/80 (99) 97 11/25/19 10:55 72 16 30 11/25/19 10:00 66 14 139/80 (99) 97 11/25/19 09:00 79 24 147/89 (108) 98 11/25/19 08:45 97 25 30 11/25/19 08:45 30 11/25/19 08:45 96 11/25/19 08:42 108 149/86 11/25/19 08:40 87 27 30 30 11/25/19 08:40 30 11/25/19 08:00 Mechanical Ventilator 11/25/19 08:00 99.0 83 22 149/86 (107) 97 11/25/19 07:49 78 11/25/19 07:00 75 14 147/81 (103) 96 11/25/19 06:50 77 18 30 11/25/19 06:30 79 20 11/25/19 06:00 73 18 140/83 (102) 98 11/25/19 05:18 84 18 30 11/25/19 05:00 79 18 148/87 (107) 98 11/25/19 04:00 Mechanical Ventilator 11/25/19 04:00 30 11/25/19 04:00 72 11/25/19 04:00 99.0 63 126/79 (95) 98 11/25/19 03:25 70 18 30 11/25/19 03:00 66 141/75 (97) 98 16 11/25/19 02:00 69 21 126/85 (99) 99 11/25/19 01:30 69 16 30 11/25/19 01:00 73 21 125/78 (94) 99 11/25/19 00:00 30 11/25/19 00:00 99.0 81 21 140/85 (103) 99 11/25/19 00:00 86 11/25/19 00:00 Mechanical Ventilator 11/24/19 23:30 77 16 30 11/24/19 23:00 82 138/90 (106) 99 11/24/19 22:00 72 21 140/88 (105) 99 11/24/19 21:30 82 19 30 11/24/19 21:12 84 126/80 11/24/19 21:00 75 21 126/80 (95) 96 11/24/19 20:00 99.2 72 19 129/76 (93) 97 11/24/19 20:00 78 11/24/19 20:00 Mechanical Ventilator 11/24/19 19:30 85 20 30 11/24/19 18:00 76 19 131/72 (91) 97 General Appearance: WD/WN, alert, on vent EENT: PERRL/EOMI Neck: supple, no JVD Rhythm: Afib Cardiovascular: normal rate, no gallop/murmur Respiratory/Chest: other - rhonchi and transmitted upper respir sounds bilat Abdomen: normal bowel sounds, non tender, soft Extremities: no swelling Intake and Output 11/24/19 11/25/19 19:00 07:00 Intake Total 1781.676 ml 1514.112 ml Output Total 910 ml 1270 ml Balance 871.676 ml 244.112 ml Free Water 30 ml 60 ml IV Total 1341.676 ml 1094.112 ml Tube Feeding 360 ml 360 ml Other 50 ml Output Urine Total 910 ml 1270 ml # Bowel Movements 2 4 CXR: reviewed - CXR from today shows dense R lower field infiltrate Laboratory Tests Test 11/25/19 05:00 11/25/19 09:00 White Blood Count 11.5 K/UL (4.8-10.8) H Red Blood Count 2.90 M/UL (4.70-6.10) L Hemoglobin 8.4 G/DL (14.2-18.0) L Hematocrit 26.1 % (42.0-52.0) L Mean Corpuscular Volume 90 FL (80-99) Mean Corpuscular Hemoglobin 29.0 PG (27.0-31.0) Mean Corpuscular Hemoglobin Concent 32.2 G/DL (32.0-36.0) Red Cell Distribution Width 18.6 % (11.6-14.8) H Platelet Count 373 K/UL (150-450) Mean Platelet Volume 4.4 FL (6.5-10.1) L Neutrophils (%) (Auto) 73.0 % (45.0-75.0) Lymphocytes (%) (Auto) 12.3 % (20.0-45.0) L Monocytes (%) (Auto) 8.4 % (1.0-10.0) Eosinophils (%) (Auto) 5.4 % (0.0-3.0) H Basophils (%) (Auto) 1.0 % (0.0-2.0) Activated Partial Thromboplast Time 72 SEC (23-33) H Sodium Level 141 MMOL/L (136-145) Potassium Level 3.5 MMOL/L (3.5-5.1) Chloride Level 104 MMOL/L (98-107) Carbon Dioxide Level 27 MMOL/L (21-32) Anion Gap 10 mmol/L (5-15) Blood Urea Nitrogen 58 mg/dL (7-18) H Creatinine 5.3 MG/DL (0.55-1.30) H Estimat Glomerular Filtration Rate 12.6 mL/min (>60) Glucose Level 114 MG/DL (74-106) H Uric Acid 8.7 MG/DL (2.6-7.2) H Calcium Level 9.2 MG/DL (8.5-10.1) Phosphorus Level 3.0 MG/DL (2.5-4.9) Magnesium Level 2.3 MG/DL (1.8-2.4) Total Bilirubin 0.3 MG/DL (0.2-1.0) Aspartate Amino Transf (AST/SGOT) 11 U/L (15-37) L Alanine Aminotransferase (ALT/SGPT) 12 U/L (12-78) Alkaline Phosphatase 51 U/L (46-116) Troponin I 0.022 ng/mL (0.000-0.056) Total Protein 7.0 G/DL (6.4-8.2) Albumin 2.3 G/DL (3.4-5.0) L Globulin 4.7 g/dL Albumin/Globulin Ratio 0.5 (1.0-2.7) L Arterial Blood pH 7.380 (7.350-7.450) Arterial Blood Partial Pressure CO2 42.8 mmHg (35.0-45.0) Arterial Blood Partial Pressure O2 71.6 mmHg (75.0-100.0) L Arterial Blood HCO3 24.8 mmol/L (22.0-26.0) Arterial Blood Oxygen Saturation 94.3 % (95-100) L Arterial Blood Base Excess -0.4 (-2-2) Shade Test Positive Microbiology Date/Time Source Procedure Growth Status 11/22/19 17:40 Sputum Gram Stain - Final Complete 11/22/19 17:40 Sputum Culture - Final Pseudomonas Aeruginosa Complete Trina Morales MD Nov 25, 2019 17:30
--- NOTE | 2019-11-25 18:10 | NUR ---
NURSE NOTES: Notified Dr Ordaz that patient is positive for ESBL urine. Also notified him that pt is on Merrem 500mg. No new orders.
--- NOTE | 2019-11-25 19:16 | NUR ---
HAND-OFF: Report given to SYED Staples.
--- NOTE | 2019-11-25 19:30 | NUR ---
NURSE NOTES: Received pt, awake watching tv, orally intubated on ac mode, Afib on the monitor, controlled rate bp stable pulses +2 palpable, sensation intact, bilateral soft wrist restraints on maintained for safety to avoid self extubation, tolerated ngt fdg at this time at 40cc/hr. no residuals HOB kept elevated. On aspiration precaution. Patiño to gravity with lg amt of yellowish urine, Monitor I and o. monitor lytes. Pt on Heparin at 12u/kg/hr infusing well to pts Rt Hand, site atraumatic. Pt also has maintainace IVF D51/2ns at 75ml/hr infusing to RT AC..Pt has 2-3+ edema to all extremities. Will continue to monitor.
[2019-11-25] MEDS: LORazepam Inj 2mg/ml 1ml IV PRN (20:43)
--- NOTE | 2019-11-25 20:43 | NUR ---
NURSE NOTES: NURSE NOTES: Ativan 2mg ivp was given due to pts anxiety
--- NOTE | 2019-11-25 21:35 | NUR ---
NURSE NOTES: Turned q 2hrs prn with good skin care done. Pt had x1 lg soft formed stool. cleaned up pt.
--- NOTE | 2019-11-25 22:00 | NUR ---
NURSE NOTES: Pt hardly get enough volume, called Resp. Therapist , pt been lavaged with NS through ETT, til clear. pt immediately got enough volume. 02 sat 100%.
[2019-11-25] MEDS: Morphine Sulfate 4mg/ml Inj (IV USE ONLY) IVP PRN (22:45)
--- NOTE | 2019-11-25 22:45 | NUR ---
NURSE NOTES: Morphine 4mg ivp was given by Kellee chamberlain due to pts pain.
[2019-11-25] MEDS ORDERED: cefTRIAXone 2 GM in D5W 55 ML IVPB SCH (23:00)
[2019-11-26] VITALS (37 sets, daily range): BP systolic 122–182; BP diastolic 79–112
[2019-11-26] MEDS: D5 1/2NS 1,000 ML IV SCH ×2 (00:31→12:05)
--- NOTE | 2019-11-26 01:26 | NUR ---
NURSE NOTES: Resting well at this time. no resp .distress noted.
[2019-11-26] MEDS: Heparin 25,000u/D5W 500ml 500 ML IV SCH (02:48)
[2019-11-26] MEDS: LORazepam Inj 2mg/ml 1ml IV PRN ×3 (03:34→20:14)
--- NOTE | 2019-11-26 03:34 | NUR ---
NURSE NOTES: Ativan 2mg ivp was given due to pts anxiety.
[2019-11-26 04:39] LABS: HEMATOCRIT 22.7 % (42.0-52.0); HEMOGLOBIN 7.4 G/DL (14.2-18.0); MEAN CORPUSCULAR VOLUME 90 FL (80-99); PLATELET COUNT 335 K/UL (150-450); RED BLOOD COUNT 2.52 M/UL (4.70-6.10); RED CELL DISTRIBUTION WIDTH 18.5 % (11.6-14.8); WHITE BLOOD COUNT 10.9 K/UL (4.8-10.8)
[2019-11-26 05:04] LABS: PHOSPHORUS 3.3 MG/DL (2.5-4.9)
[2019-11-26 05:10] LABS: ALANINE AMINOTRANSFERASE 18 U/L (12-78); ALBUMIN/GLOBULIN RATIO 0.5 (1.0-2.7); ALKALINE PHOSPHATASE 51 U/L (46-116); ANION GAP 11 mmol/L (5-15); BILIRUBIN,TOTAL 0.2 MG/DL (0.2-1.0); BLOOD UREA NITROGEN 47 mg/dL (7-18); CALCIUM 8.6 MG/DL (8.5-10.1); CARBON DIOXIDE 24 MMOL/L (21-32); CHLORIDE 106 MMOL/L (98-107); POTASSIUM 3.5 MMOL/L (3.5-5.1); SODIUM 141 MMOL/L (136-145)
[2019-11-26 05:26] LABS: ASPARTATE AMINO TRANSFERASE 13 U/L (15-37)
--- NOTE | 2019-11-26 07:43 | NUR ---
HAND-OFF: Report given to Nuris LYNCH for continuity of care.
--- NOTE | 2019-11-26 07:43 | NUR ---
NURSE NOTES: Resting well at this time with vss.
--- NOTE | 2019-11-26 07:44 | NUR ---
NURSE NOTES: Pt received from SYED Cardenas. Pt is awake in bed, able to follow commands. Pupils are equal and round 2mm bilaterally with sluggish light rxn. Left hand noted with 1+ pitting edema. Bilat radial pulses 3+ and dorsalis pedis 2+. axillary temp noted 99 F ax. 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 Pt is intubated with 7.5 ETT noted 25 cm at left lip corner, with the following settings: AC 16 TV 550 FiO2 30% without Peep. Left upper and lower lung lobes + right lower lung lobe noted diminished upon auscultation. Right upper lung lobe is CTA. Pt has a left nares NGT running Jevity 1.2 at 40 cc/hr without gastric residuals. GT stoma site noted without redness, drainage, or swelling. Abd is soft, round, and non-tender with active bowel sounds to all quadrants. Pt has a f/c draining yellow, clear urine. Skin alterations noted- pt on MAISHA mattress. Pt has a right RH 20g IV running heparin at 22.426 cc/hr (12 units/kg/hr) and LH 20 g IV running D5 1/2 NS at 75 cc/hr. RAC 20g IV noted saline locked. Bilat soft wrist restraints noted, bilat radial pulses palpable and wrist skin intact without redness. Bed is in lowest position, alarm on, side rails up x 3, call light within reach, SCDs on bilat lower extremities, pt provided education on fall precaution. Will continue to monitor.
[2019-11-26] MEDS: Aspirin Baby 81mg NG SCH (08:44)
[2019-11-26] MEDS: Pantoprazole Inj IV SCH ×2 (08:44→20:14)
[2019-11-26] MEDS: Metoprolol Tartrate 50mg tab NG SCH ×2 (08:44→20:14)
[2019-11-26] MEDS: Docusate 100mg/10ml Liq NG SCH ×3 (08:44→18:03)
[2019-11-26] MEDS: Meropenem 500 MG in NS 55 ML IVPB SCH ×2 (08:45→20:14)
[2019-11-26] MEDS ORDERED: Vancomycin 1gm/D5W 275ml IVPB SCH ×2 (09:00)
--- NOTE | 2019-11-26 09:39 | Infectious Diseases Prog Note ---
Assessment/Plan Assessment/Plan ASSESSMENT: This is an 83-year-old male. Afebrile Nl WBC Doubt Pneum (at this time) - Respiratory failure: m/l 2/2 CHF, elevated BNP) - Sp Cx GNR Probable UTI - UCX : GNR GPC Bacteremia - BCx 11/21/19 Staph warneri 2/2 sets - BCx 11/22/19 - NGTD - 2D Echo : No Veg Congestive heart failure. Atrial fibrillation. Altered mental status. Urinary tract infection. Renal failure. Hypertension. Alzheimer's dementia. BPH P: cont IV Vanco # 5 Cont pt on IV Merrem # 3 11/23 Sp Rocephin # 4 Monitor CBC, CMP Monitor Cx ( B, U, Sp ) Monitor CXR Rsp support Chest CT Bl cx Rpt Subjective Allergies: Coded Allergies: LISINOPRIL (Verified Allergy, Unknown, 11/21/19) SIMVASTATIN (Verified Allergy, Unknown, 11/21/19) TERAZOSIN (Verified Allergy, Unknown, 11/21/19) Subjective on vent Objective Vital Signs Last 24 Hour Vital Signs Date Time Temp Pulse Resp B/P (MAP) Pulse Ox O2 Delivery O2 Flow Rate FiO2 11/26/19 08:44 69 168/98 11/26/19 08:00 30 11/26/19 08:00 99.0 82 19 168/98 (121) 98 11/26/19 07:05 87 20 30 11/26/19 07:00 67 16 133/86 (102) 98 11/26/19 06:30 72 20 11/26/19 06:00 72 16 156/89 (111) 98 11/26/19 05:16 76 16 30 11/26/19 05:00 71 16 158/99 (118) 98 11/26/19 04:00 30 11/26/19 04:00 Mechanical Ventilator 11/26/19 04:00 79 11/26/19 04:00 99.2 69 16 122/81 (95) 98 11/26/19 03:28 84 16 30 11/26/19 03:00 79 19 153/91 (111) 99 11/26/19 02:00 77 15 143/79 (100) 99 11/26/19 01:17 81 16 30 11/26/19 01:00 73 16 145/95 (112) 98 11/26/19 00:00 99.0 72 16 152/92 (112) 97 11/26/19 00:00 Mechanical Ventilator 11/25/19 23:00 93 24 132/83 (99) 97 11/25/19 22:56 97 16 30 11/25/19 22:00 80 22 148/101 (117) 93 11/25/19 21:09 79 17 30 11/25/19 21:00 85 19 151/83 (105) 100 11/25/19 20:43 89 153/122 11/25/19 20:00 Mechanical Ventilator 11/25/19 20:00 80 11/25/19 20:00 98.9 88 29 153/88 (109) 98 11/25/19 20:00 30 11/25/19 19:58 75 17 30 11/25/19 19:00 80 18 147/89 (108) 98 11/25/19 18:00 74 16 148/87 (107) 98 11/25/19 17:00 76 16 145/90 (108) 100 11/25/19 16:42 77 16 30 11/25/19 16:14 81 11/25/19 16:00 30 11/25/19 16:00 99.2 75 21 149/82 (104) 99 11/25/19 16:00 Mechanical Ventilator 11/25/19 15:10 72 18 30 11/25/19 15:00 76 15 142/88 (106) 98 11/25/19 14:00 71 14 152/93 (112) 99 11/25/19 13:02 80 18 30 11/25/19 13:00 98.7 80 17 139/100 (113) 99 11/25/19 12:00 Mechanical Ventilator 11/25/19 12:00 75 15 156/91 (112) 97 11/25/19 11:15 151/97 11/25/19 11:06 70 11/25/19 11:00 77 17 151/97 (115) 97 11/25/19 11:00 66 14 139/80 (99) 97 11/25/19 10:55 72 16 30 11/25/19 10:00 66 14 139/80 (99) 97 Height (Feet): 5 Height (Inches): 10.00 Weight (Pounds): 204 HEENT: anicteric Respiratory/Chest: normal breath sounds Cardiovascular: regularly irregular Abdomen: no organomegaly Laboratory Tests Test 11/26/19 04:05 White Blood Count 10.9 K/UL (4.8-10.8) H Red Blood Count 2.52 M/UL (4.70-6.10) L Hemoglobin 7.4 G/DL (14.2-18.0) L Hematocrit 22.7 % (42.0-52.0) L Mean Corpuscular Volume 90 FL (80-99) Mean Corpuscular Hemoglobin 29.6 PG (27.0-31.0) Mean Corpuscular Hemoglobin Concent 32.8 G/DL (32.0-36.0) Red Cell Distribution Width 18.5 % (11.6-14.8) H Platelet Count 335 K/UL (150-450) Mean Platelet Volume 4.5 FL (6.5-10.1) L Neutrophils (%) (Auto) % (45.0-75.0) Lymphocytes (%) (Auto) % (20.0-45.0) Monocytes (%) (Auto) % (1.0-10.0) Eosinophils (%) (Auto) % (0.0-3.0) Basophils (%) (Auto) % (0.0-2.0) Activated Partial Thromboplast Time 72 SEC (23-33) H Sodium Level 141 MMOL/L (136-145) Potassium Level 3.5 MMOL/L (3.5-5.1) Chloride Level 106 MMOL/L (98-107) Carbon Dioxide Level 24 MMOL/L (21-32) Anion Gap 11 mmol/L (5-15) Blood Urea Nitrogen 47 mg/dL (7-18) H Creatinine 5.0 MG/DL (0.55-1.30) H Estimat Glomerular Filtration Rate 13.5 mL/min (>60) Glucose Level 114 MG/DL (74-106) H Uric Acid 8.9 MG/DL (2.6-7.2) H Calcium Level 8.6 MG/DL (8.5-10.1) Phosphorus Level 3.3 MG/DL (2.5-4.9) Magnesium Level 2.0 MG/DL (1.8-2.4) Total Bilirubin 0.2 MG/DL (0.2-1.0) Aspartate Amino Transf (AST/SGOT) 13 U/L (15-37) L Alanine Aminotransferase (ALT/SGPT) 18 U/L (12-78) Alkaline Phosphatase 51 U/L (46-116) C-Reactive Protein, Quantitative 7.1 mg/dL (0.00-0.90) H Pro-B-Type Natriuretic Peptide > 12594 pg/mL (0-125) H Total Protein 6.3 G/DL (6.4-8.2) L Albumin 2.0 G/DL (3.4-5.0) L Globulin 4.3 g/dL Albumin/Globulin Ratio 0.5 (1.0-2.7) L Random Vancomycin Level 17.2 ug/mL Current Medications Medications (Trade) Dose Ordered Sig/Cyndi Route PRN Reason Start Time Stop Time Status Last Admin Dose Admin Acetaminophen (Tylenol) 650 mg Q4H PRN NG Fever 11/21/19 13:00 12/21/19 08:14 Albuterol/ Ipratropium (Albuterol/ Ipratropium) 3 ml Q4H PRN HHN Shortness of Breath 11/24/19 10:11 11/29/19 10:10 Aspirin (ASA) 81 mg DAILY NG 11/23/19 09:00 01/07/20 08:59 11/26/19 08:44 Dextrose (Dextrose 50%) 25 ml Q30M PRN IV Hypoglycemia 11/21/19 08:15 02/19/20 08:14 Dextrose (Dextrose 50%) 50 ml Q30M PRN IV Hypoglycemia 11/21/19 08:15 02/19/20 08:14 Dextrose/Sodium Chloride 1,000 ml @ 75 mls/hr [id number] IV 11/21/19 13:00 12/21/19 12:59 11/26/19 00:31 Docusate Sodium (Colace) 100 mg THREE TIMES A DAY NG 11/21/19 13:00 12/21/19 12:59 11/26/19 08:44 Heparin Sodium/ Dextrose 500 ml @ 22.426 mls/ hr ADJUST PER PROTOCOL IV 11/24/19 05:45 12/24/19 05:44 11/26/19 02:48 Lorazepam (Ativan 2mg/ml 1ml) 2 mg Q4H PRN IV For Anxiety 11/21/19 08:15 11/28/19 08:14 11/26/19 03:34 Meropenem 500 mg/ Sodium Chloride 55 ml @ 110 mls/hr Q12HR IVPB 11/25/19 14:00 11/30/19 13:59 11/26/19 08:45 Metoprolol Tartrate (Lopressor) 50 mg Q12HR NG 11/22/19 21:00 02/19/20 20:59 11/26/19 08:44 Morphine Sulfate (Morphine Sulfate) 4 mg Q4H PRN IVP For Pain 11/21/19 08:15 11/28/19 08:14 11/25/19 22:45 Nitroglycerin (Ntg) 1 patch Q24H TDERMAL 11/22/19 11:00 12/22/19 10:59 11/25/19 11:15 Ondansetron HCl (Zofran) 4 mg Q6H PRN IVP Nausea & Vomiting 11/21/19 08:15 12/21/19 08:14 Pantoprazole (Protonix) 40 mg Q12HR IV 11/21/19 21:00 12/21/19 09:38 11/26/19 08:44 Polyethylene Glycol (Miralax) 17 gm DAILYPRN PRN NG Constipation 11/21/19 13:00 12/21/19 08:14 Temazepam (Restoril) 15 mg HSPRN PRN NG Insomnia 11/21/19 13:00 11/28/19 08:14 Vancomycin HCl (Vanco rx to dose) 1 ea DAILY PRN MISC Per rx protocol 11/22/19 14:45 12/22/19 14:44 Vancomycin HCl 1 gm/Dextrose 275 ml @ 183.708 mls/hr ONCE IVPB 11/26/19 09:00 11/26/19 11:00 11/26/19 09:25 Mike Hicks MD Nov 26, 2019 09:39
--- NOTE | 2019-11-26 09:57 | NUR ---
RADIOLOGY DEPT., CHEST X-RAY DONE.-P.DYE
--- NOTE | 2019-11-26 10:00 | NUR ---
NURSE NOTES: Pt repositioned and in no acute distress at this time. Will continue to monitor.
--- NOTE | 2019-11-26 10:05 | NUR ---
NURSE NOTES: Pt was placed on CPAP mode with PS 10 since 929 and tolerated weaning until 1005 when pt noted SOB and apneic. Pt placed back on AC mode with previous settings at this time.
--- NOTE | 2019-11-26 11:29 | Pulmonolgy Critical Care Note ---
Critical Care - Asmt/Plan Problems: (1) Acute hypercapnic respiratory failure (2) Paroxysmal A-fib (3) Anemia, chronic renal failure (4) Acute on chronic renal insufficiency (5) Chronic hepatitis (6) Moderate pulmonary arterial systolic hypertension (7) Left ventricular ejection fraction greater than or equal to 40 percent (8) History of hypertension (9) Alzheimer's dementia (10) BPH (benign prostatic hyperplasia) Respiratory: monitor respiratory rate, adjust FIO2, CXR Cardiac: continue pressors, continue to monitor HR/BP Renal: F/U I&O Infectious Disease: check cultures Gastrointestinal: continue feedings/current rate Endocrine: monitor blood sugar Hematologic: transfuse if hgb<8.5 - one unit today, other Neurologic: PRN Ativan Affect: PRN ativan Prophylaxis: Protonix Disposition: keep in ICU Notes Reviewed: high pressure firer, cardio, renal Critical Care - Objective Last 24 Hour Vital Signs Date Time Temp Pulse Resp B/P (MAP) Pulse Ox O2 Delivery O2 Flow Rate FiO2 11/26/19 11:00 70 16 157/94 (115) 97 11/26/19 10:05 86 31 30 11/26/19 10:05 98 11/26/19 10:00 80 23 166/96 (119) 96 11/26/19 09:30 74 22 30 30 11/26/19 09:00 75 19 162/93 (116) 97 11/26/19 08:44 69 168/98 11/26/19 08:00 68 11/26/19 08:00 Mechanical Ventilator Mechanical Ventilator Mechanical Ventilator Mechanical Ventilator Mechanical Ventilator 11/26/19 08:00 30 11/26/19 08:00 99.0 82 19 168/98 (121) 98 11/26/19 07:05 87 20 30 11/26/19 07:00 67 16 133/86 (102) 98 11/26/19 06:30 72 20 11/26/19 06:00 72 16 156/89 (111) 98 11/26/19 05:16 76 16 30 11/26/19 05:00 71 16 158/99 (118) 98 11/26/19 04:00 30 11/26/19 04:00 Mechanical Ventilator 11/26/19 04:00 79 11/26/19 04:00 99.2 69 16 122/81 (95) 98 3/23/20 03:28 84 16 30 11/26/19 03:00 79 19 153/91 (111) 99 11/26/19 02:00 77 15 143/79 (100) 99 11/26/19 01:17 81 16 30 11/26/19 01:00 73 16 145/95 (112) 98 11/26/19 00:00 99.0 72 16 152/92 (112) 97 11/26/19 00:00 Mechanical Ventilator 11/25/19 23:00 93 24 132/83 (99) 97 11/25/19 22:56 97 16 30 11/25/19 22:00 80 22 148/101 (117) 93 11/25/19 21:09 79 17 30 11/25/19 21:00 85 19 151/83 (105) 100 11/25/19 20:43 89 153/122 11/25/19 20:00 Mechanical Ventilator 11/25/19 20:00 80 11/25/19 20:00 98.9 88 29 153/88 (109) 98 11/25/19 20:00 30 11/25/19 19:58 75 17 30 11/25/19 19:00 80 18 147/89 (108) 98 11/25/19 18:00 74 16 148/87 (107) 98 11/25/19 17:00 76 16 145/90 (108) 100 11/25/19 16:42 77 16 30 11/25/19 16:14 81 11/25/19 16:00 30 11/25/19 16:00 99.2 75 21 149/82 (104) 99 11/25/19 16:00 Mechanical Ventilator 11/25/19 15:10 72 18 30 11/25/19 15:00 76 15 142/88 (106) 98 11/25/19 14:00 71 14 152/93 (112) 99 11/25/19 13:02 80 18 30 11/25/19 13:00 98.7 80 17 139/100 (113) 99 11/25/19 12:00 Mechanical Ventilator 11/25/19 12:00 75 15 156/91 (112) 97 Status: awake Condition: critical HEENT: atraumatic Heart: HR/BP stable Abdomen: soft, non-tender Extremities: no C/C/E Critical Care - Subjective ROS Limited/Unobtainable: No Condition: critical EKG Rhythm: Sinus Rhythm FI02: 30 Vent Support Breath Rate: 16 Vent Support Mode: AC Vent Tidal Volume: 550 Sputum Amount: Small PEEP: 0.0 PIP: 27 Tube Feeding Amount: 40 I&O: Intake and Output 11/25/19 11/26/19 19:00 07:00 Intake Total 1754.112 ml 1769.112 ml Output Total 1270 ml 1250 ml Balance 484.112 ml 519.112 ml Free Water 100 ml 120 ml IV Total 1224.112 ml 1169.112 ml Tube Feeding 400 ml 480 ml Other 30 ml Output Urine Total 1270 ml 1250 ml # Bowel Movements 2 4 CXR: RLL pneumonia ET-Tube: 7.5 ET Position: 25 Labs: Laboratory Tests Test 11/26/19 04:05 White Blood Count 10.9 K/UL (4.8-10.8) H Red Blood Count 2.52 M/UL (4.70-6.10) L Hemoglobin 7.4 G/DL (14.2-18.0) L Hematocrit 22.7 % (42.0-52.0) L Mean Corpuscular Volume 90 FL (80-99) Mean Corpuscular Hemoglobin 29.6 PG (27.0-31.0) Mean Corpuscular Hemoglobin Concent 32.8 G/DL (32.0-36.0) Red Cell Distribution Width 18.5 % (11.6-14.8) H Platelet Count 335 K/UL (150-450) Mean Platelet Volume 4.5 FL (6.5-10.1) L Neutrophils (%) (Auto) % (45.0-75.0) Lymphocytes (%) (Auto) % (20.0-45.0) Monocytes (%) (Auto) % (1.0-10.0) Eosinophils (%) (Auto) % (0.0-3.0) Basophils (%) (Auto) % (0.0-2.0) Activated Partial Thromboplast Time 72 SEC (23-33) H Sodium Level 141 MMOL/L (136-145) Potassium Level 3.5 MMOL/L (3.5-5.1) Chloride Level 106 MMOL/L (98-107) Carbon Dioxide Level 24 MMOL/L (21-32) Anion Gap 11 mmol/L (5-15) Blood Urea Nitrogen 47 mg/dL (7-18) H Creatinine 5.0 MG/DL (0.55-1.30) H Estimat Glomerular Filtration Rate 13.5 mL/min (>60) Glucose Level 114 MG/DL (74-106) H Uric Acid 8.9 MG/DL (2.6-7.2) H Calcium Level 8.6 MG/DL (8.5-10.1) Phosphorus Level 3.3 MG/DL (2.5-4.9) Magnesium Level 2.0 MG/DL (1.8-2.4) Total Bilirubin 0.2 MG/DL (0.2-1.0) Aspartate Amino Transf (AST/SGOT) 13 U/L (15-37) L Alanine Aminotransferase (ALT/SGPT) 18 U/L (12-78) Alkaline Phosphatase 51 U/L (46-116) C-Reactive Protein, Quantitative 7.1 mg/dL (0.00-0.90) H Pro-B-Type Natriuretic Peptide > 49837 pg/mL (0-125) H Total Protein 6.3 G/DL (6.4-8.2) L Albumin 2.0 G/DL (3.4-5.0) L Globulin 4.3 g/dL Albumin/Globulin Ratio 0.5 (1.0-2.7) L Random Vancomycin Level 17.2 ug/mL Susannah Hightower MD Nov 26, 2019 11:28
--- NOTE | 2019-11-26 11:34 | NUR ---
NURSE NOTES: Dr Hightower at bedside, order for PRBC transfusion placed. Spoke with pt's daughter (Amy Bolanos) to witness consent; however, she states she would like to discuss decision with her sister Paul Bullock before giving consent. She also states she prefers not to make decisions for her father because she hasn't been involved in his life and that he is able to make decisions for himself. However I did explain to her that with his current condition, pt is not fully oriented and is unable to provide consent independently. Amy states she will call us back around 5 pm today after discussing with Paul. A voicemail was also left for Paul. Dr Hightower made aware.
--- NOTE | 2019-11-26 11:46 | Nephrology Progress Note ---
Assessment/Plan Problem List: (1) Acute on chronic renal insufficiency Assessment: Serum creatinine gradually decreasing (2) Acute hypercapnic respiratory failure (3) Anemia in chronic kidney disease (CKD) (4) BPH (benign prostatic hyperplasia) Assessment Acute renal failure Possible underlying chronic kidney failure Hyperkalemia Anemia other conditions: (1) Acute hypercapnic respiratory failure (2) Paroxysmal A-fib (3) Anemia, chronic renal failure (4) History of hypertension (5) Alzheimer's dementia (6) Chronic hepatitis (7) BPH (benign prostatic hyperplasia) Plan Lopressor dose adjusted Add hydralazine Nitrate Slow hydration Monitor intake and output Monitor renal parameters Avoid nephrotoxic's Kidney ultrasound results noted indicative of chronicity 2D echocardiogram result noted ejection fraction 55% Anemia work-up noted Per orders Subjective ROS Limited/Unobtainable: Yes Objective Objective Last 24 Hour Vital Signs Date Time Temp Pulse Resp B/P (MAP) Pulse Ox O2 Delivery O2 Flow Rate FiO2 11/26/19 11:10 71 16 30 11/26/19 11:00 70 16 157/94 (115) 97 11/26/19 10:05 86 31 30 11/26/19 10:05 98 11/26/19 10:00 80 23 166/96 (119) 96 11/26/19 09:30 74 22 30 30 11/26/19 09:00 75 19 162/93 (116) 97 11/26/19 08:44 69 168/98 11/26/19 08:00 68 11/26/19 08:00 Mechanical Ventilator Mechanical Ventilator Mechanical Ventilator Mechanical Ventilator Mechanical Ventilator 11/26/19 08:00 30 11/26/19 08:00 99.0 82 19 168/98 (121) 98 11/26/19 07:05 87 20 30 11/26/19 07:00 67 16 133/86 (102) 98 11/26/19 06:30 72 20 11/26/19 06:00 72 16 156/89 (111) 98 11/26/19 05:16 76 16 30 11/26/19 05:00 71 16 158/99 (118) 98 11/26/19 04:00 30 11/26/19 04:00 Mechanical Ventilator 11/26/19 04:00 79 11/26/19 04:00 99.2 69 16 122/81 (95) 98 11/26/19 03:28 84 16 30 11/26/19 03:00 79 19 153/91 (111) 99 11/26/19 02:00 77 15 143/79 (100) 99 11/26/19 01:17 81 16 30 11/26/19 01:00 73 16 145/95 (112) 98 11/26/19 00:00 99.0 72 16 152/92 (112) 97 11/26/19 00:00 Mechanical Ventilator 11/25/19 23:00 93 24 132/83 (99) 97 11/25/19 22:56 97 16 30 11/25/19 22:00 80 22 148/101 (117) 93 11/25/19 21:09 79 17 30 11/25/19 21:00 85 19 151/83 (105) 100 11/25/19 20:43 89 153/122 11/25/19 20:00 Mechanical Ventilator 11/25/19 20:00 80 11/25/19 20:00 98.9 88 29 153/88 (109) 98 11/25/19 20:00 30 11/25/19 19:58 75 17 30 11/25/19 19:00 80 18 147/89 (108) 98 11/25/19 18:00 74 16 148/87 (107) 98 11/25/19 17:00 76 16 145/90 (108) 100 11/25/19 16:42 77 16 30 11/25/19 16:14 81 11/25/19 16:00 30 11/25/19 16:00 99.2 75 21 149/82 (104) 99 11/25/19 16:00 Mechanical Ventilator 11/25/19 15:10 72 18 30 11/25/19 15:00 76 15 142/88 (106) 98 11/25/19 14:00 71 14 152/93 (112) 99 11/25/19 13:02 80 18 30 11/25/19 13:00 98.7 80 17 139/100 (113) 99 11/25/19 12:00 Mechanical Ventilator 11/25/19 12:00 75 15 156/91 (112) 97 Intake and Output 11/25/19 11/26/19 19:00 07:00 Intake Total 1754.112 ml 1769.112 ml Output Total 1270 ml 1250 ml Balance 484.112 ml 519.112 ml Free Water 100 ml 120 ml IV Total 1224.112 ml 1169.112 ml Tube Feeding 400 ml 480 ml Other 30 ml Output Urine Total 1270 ml 1250 ml # Bowel Movements 2 4 Laboratory Tests 11/26/19 04:05: White Blood Count 10.9H, Red Blood Count 2.52L, Hemoglobin 7.4L, Hematocrit 22.7L, Mean Corpuscular Volume 90, Mean Corpuscular Hemoglobin 29.6, Mean Corpuscular Hemoglobin Concent 32.8, Red Cell Distribution Width 18.5H, Platelet Count 335, Mean Platelet Volume 4.5L, Neutrophils (%) (Auto) , Lymphocytes (%) (Auto) , Monocytes (%) (Auto) , Eosinophils (%) (Auto) , Basophils (%) (Auto) , Activated Partial Thromboplast Time 72H, Sodium Level 141 , Potassium Level 3.5, Chloride Level 106, Carbon Dioxide Level 24, Anion Gap 11 , Blood Urea Nitrogen 47H, Creatinine 5.0H, Estimat Glomerular Filtration Rate 13.5, Glucose Level 114H, Uric Acid 8.9H, Calcium Level 8.6, Phosphorus Level 3.3, Magnesium Level 2.0, Total Bilirubin 0.2, Aspartate Amino Transf (AST/SGOT ) 13L, Alanine Aminotransferase (ALT/SGPT) 18, Alkaline Phosphatase 51, C- Reactive Protein, Quantitative 7.1H, Pro-B-Type Natriuretic Peptide > 05396D, Total Protein 6.3L, Albumin 2.0L, Globulin 4.3, Albumin/Globulin Ratio 0.5L, Random Vancomycin Level 17.2 Height (Feet): 5 Height (Inches): 10.00 Weight (Pounds): 204 General Appearance: no apparent distress EENT: other - On ventilator Respiratory/Chest: decreased breath sounds Abdomen: soft Genitourinary/Rectal: other - Has Patiño Objective No change Reynold Ellison MD Nov 26, 2019 11:46
--- NOTE | 2019-11-26 11:49 | NUR ---
CASE MANAGEMENT:REVIEW 11/26/19 SI:ATRIAL FIBRILLATION . SEPSIS . UTI . RENAL FAILURE . TROP (+) . RESPIRATORY FAILURE . PNA . CHF MULTIPLE RENAL CYST . +VRE 99.0 82 19 168/98 98% MECHANICAL VENTILATOR FiO2 30 WBC 10.9 H/H 7.4/22.7 BUN 47 CREAT 5.0 URIC ACID 8.9 BNP >52023 PTT 72 IS:IV MEROPENEM BID HEPARIN GTT IV PROTONIX BID LOPRESSOR NG BID NTG TD QD IV MORPHINE SULFATE Q4HR/PRN \: INTENSIVE CARE UNIT DCP: MITCH CARE WHEN STABLE PLAN: SPUTUM CX(+) PSEUDOMONAS AERUGINOSA BLOOD CX- PENDING URINE (+) E.COLI
[2019-11-26] MEDS: HydrALAZINE 10mg Tab NG SCH ×3 (12:00→23:15)
[2019-11-26] MEDS: Nitroglycerin Patch 0.4mg TDERMAL SCH (12:00)
--- NOTE | 2019-11-26 12:21 | NUR ---
NURSE NOTES: Pt repositioned, oral care provided, pt in no acute distress at this time. No BM noted yet for OBS collection.
--- NOTE | 2019-11-26 12:57 | NUR ---
NURSE NOTES: Received call from Paul (pt's daughter) stating she also does not wish to make medical decision for the pt at this time. Left message for Gutierrez Green, social media coordinator regarding this matter and Dr Hightower made aware.
--- NOTE | 2019-11-26 13:34 | Diagnostic Imaging Report ---
Indication: Dyspnea Comparison: 11/25/2019 A single view chest radiograph was obtained. Findings: There is evidence of pulmonary vascular congestion with cephalized prominent pulmonary vessels and interstitial edema. Hazy opacity present at the lung bases likely represent pleural effusions. Heart is enlarged. Endotracheal tube nasogastric tube are in good position. IMPRESSION: Pulmonary edema with worsening disease over the last 24
--- NOTE | 2019-11-26 14:00 | NUR ---
NURSE NOTES: Pt repositioned, no acute distress noted.
--- NOTE | 2019-11-26 14:30 | NUR ---
RESPIRATORY NOTE: Walked in the room pt was self extubating and pulling the NG tube out. RN Kumar at bedside to assess.
--- NOTE | 2019-11-26 14:35 | NUR ---
NURSE NOTES: Per Donato RN and Yen, RT, pt was found in room pulling on ETT and NGT despite having restraints on both wrists, ETT was noted 20 cm at lip line, spO2 noted in the 80s. Dr Hightower notified and Dr Tay (ER) contacted to re-intubate pt. Pt currently disconnected from ventilator and is being bagged until Dr Tay arrives.
--- NOTE | 2019-11-26 14:55 | NUR ---
NURSE NOTES: 120 mg IV Succinylcholine given per Dr. Tay's request. Pt successfully reintubated, spO2 now noted 95-100%. OGT inserted and STAT KUB ordered per Dr. Hightower. Addendum: 11/26/19 at 1609 by Nuris Manley RN ETT now noted 24 cm at right lip line.
--- NOTE | 2019-11-26 14:57 | NUR ---
RESPIRATORY NOTES: Patient self extubated at 1430. Reintubated patient at 1450 with same vent settings with a lip line of 21cm.
--- NOTE | 2019-11-26 15:36 | NUR ---
Social Work This SW was informed by ICU regarding daughters refusing to give consent for a blood transfusion. This SW left a message for both daughters, Amy Bolanos ([phone]) and Paul ([phone]). Awaiting call return at this time. SW to follow.
--- NOTE | 2019-11-26 15:40 | NUR ---
NURSE NOTES: Followed up with ALYSSIA Fagan about speaking w/ pt's daughters surrounding designated decision maker and need for blood transfusion consent- however, Gracia was unable to reach Paul and Duarte and left them each a voicemail. She states she will f/u with them tomorrow. Dr. Hightower notified.
--- NOTE | 2019-11-26 15:45 | NUR ---
NURSE NOTES: Pt repositioned, oral care performed, no acute distress.
--- NOTE | 2019-11-26 16:00 | NUR ---
NURSE NOTES: Pt now calm, ABG done, FiO2 titrated back down to 30% from 100%, pt is in no acute distress and is asleep at this time.
--- NOTE | 2019-11-26 16:06 | Diagnostic Imaging Report ---
Indication: Dyspnea Comparison: 11/26/2019 A single view chest radiograph was obtained. Findings: Interstitial edema demonstrated with prominent vascularity and heart size. Endotracheal tube and nasogastric tube appear in good position. There are probable bilateral pleural effusions. IMPRESSION: Slightly worsening pulmonary edema
--- NOTE | 2019-11-26 16:15 | Emergency Room Report ---
History of Present Illness General Chief Complaint: Dyspnea/Respdistress Source: EMS Present Illness Allergies: Coded Allergies: LISINOPRIL (Verified Allergy, Unknown, 11/21/19) SIMVASTATIN (Verified Allergy, Unknown, 11/21/19) TERAZOSIN (Verified Allergy, Unknown, 11/21/19) Nursing Documentation[facility] Past Medical History Deferred: Pt Cognitively Impaired Hx Hypertension: Yes Hx Cancer: No Hx Dementia: Yes Physical Exam Vital Signs Date Time Temp Pulse Resp B/P (MAP) Pulse Ox O2 Delivery O2 Flow Rate FiO2 11/22/19 07:00 100 16 140/82 (101) 99 11/22/19 07:42 30 11/22/19 08:00 97.8 11/22/19 08:00 Mechanical Ventilator Procedures Intubation Intubation : Consent: Emergent Intubation Method: orotracheal Tube Size (cm): 8.0 Medications: Succinylcholine Breath Sounds after Intubation: equal Intubation Complications: no complications Post Intubation Xray: Yes Attempts: One Patient Tolerated: Well Complications: None Progress I was called upstairs for airway intubation Patient reported to have self extubated himself and was desaturating Upon arrival the patient appears lethargic Is hypoxic with oxygenation down to 75% Requiring airway intubation Patient intubated with direct visualization of the vocal cords Medical Decision Making Diagnostic Impression: Primary Impression: Sepsis Qualified Codes: A41.9 - Sepsis, unspecified organism; R65.20 - Severe sepsis without septic shock Additional Impressions: Urinary tract infection Qualified Codes: T83.511A - Infection and inflammatory reaction due to indwelling urethral catheter, initial encounter; N39.0 - Urinary tract infection , site not specified Renal failure Qualified Codes: N19 - Unspecified kidney failure Respiratory failure Qualified Codes: J96.01 - Acute respiratory failure with hypoxia; J96.02 - Acute respiratory failure with hypercapnia Pneumonia Qualified Codes: J18.9 - Pneumonia, unspecified organism Chest X-Ray Diagnostic Results Chest X-Ray Diagnostic Results : Chest X-Ray Ordered: Yes # of Views/Limited/Complete: 1 View Indication: Other - Airway intubation EP Interpretation: Yes Interpretation: no pneumothorax, other - ET tube appropriate position, bilateral large effusions, cardiomegaly Impression: Other - ET tube appropriate positioning Electronically Signed by: Suhail Suárez DO Last Vital Signs Date Time Temp Pulse Resp B/P (MAP) Pulse Ox O2 Delivery O2 Flow Rate FiO2 11/26/19 15:30 117 16 30 11/26/19 15:27 157/87 (110) 100 11/26/19 12:00 98.7 11/26/19 12:00 Mechanical Ventilator Mechanical Ventilator Mechanical Ventilator Mechanical Ventilator Mechanical Ventilator Disposition: ADMITTED INPATIENT Condition: Critical Referrals: NON PHYSICIAN (PCP) Suhail Suárez DO Nov 26, 2019 16:15
--- NOTE | 2019-11-26 18:07 | NUR ---
NURSE NOTES: Pt repositioned, no acute distress noted at this time. Will continue to monitor.
--- NOTE | 2019-11-26 19:04 | Internal Med Progress Note ---
Subjective Date of Service: Nov 26, 2019 Physician Name ZamarripaAbisai Attending Physician Claude Garza MD Current Medications Medications (Trade) Dose Ordered Sig/Cyndi Route PRN Reason Start Time Stop Time Status Last Admin Dose Admin Acetaminophen (Tylenol) 650 mg Q4H PRN NG Fever 11/21/19 13:00 12/21/19 08:14 Albuterol/ Ipratropium (Albuterol/ Ipratropium) 3 ml Q4H PRN HHN Shortness of Breath 11/24/19 10:11 11/29/19 10:10 Aspirin (ASA) 81 mg DAILY NG 11/23/19 09:00 01/07/20 08:59 11/26/19 08:44 Dextrose (Dextrose 50%) 25 ml Q30M PRN IV Hypoglycemia 11/21/19 08:15 02/19/20 08:14 Dextrose (Dextrose 50%) 50 ml Q30M PRN IV Hypoglycemia 11/21/19 08:15 02/19/20 08:14 Dextrose/Sodium Chloride 1,000 ml @ 50 mls/hr Q20H IV 11/26/19 13:00 12/21/19 12:59 11/26/19 12:05 Docusate Sodium (Colace) 100 mg THREE TIMES A DAY NG 11/21/19 13:00 12/21/19 12:59 11/26/19 18:03 Fentanyl Citrate 1000 mcg/Sodium Chloride 100 ml @ 0 mls/hr Q24H IV 11/26/19 21:00 12/03/19 20:59 Heparin Sodium/ Dextrose 500 ml @ 22.426 mls/ hr ADJUST PER PROTOCOL IV 11/24/19 05:45 12/24/19 05:44 11/26/19 02:48 Hydralazine HCl (Apresoline) 10 mg Q6HR NG 11/26/19 12:00 02/24/20 11:59 11/26/19 18:03 Lorazepam (Ativan 2mg/ml 1ml) 2 mg Q4H PRN IV For Anxiety 11/21/19 08:15 11/28/19 08:14 11/26/19 15:43 Meropenem 500 mg/ Sodium Chloride 55 ml @ 110 mls/hr Q12HR IVPB 11/25/19 14:00 11/30/19 13:59 11/26/19 08:45 Metoprolol Tartrate (Lopressor) 50 mg Q12HR NG 11/22/19 21:00 02/19/20 20:59 11/26/19 08:44 Morphine Sulfate (Morphine Sulfate) 4 mg Q4H PRN IVP For Pain 11/21/19 08:15 11/28/19 08:14 11/25/19 22:45 Nitroglycerin (Ntg) 1 patch Q24H TDERMAL 11/22/19 11:00 12/22/19 10:59 11/26/19 12:00 Ondansetron HCl (Zofran) 4 mg Q6H PRN IVP Nausea & Vomiting 11/21/19 08:15 12/21/19 08:14 Pantoprazole (Protonix) 40 mg Q12HR IV 11/21/19 21:00 12/21/19 09:38 11/26/19 08:44 Polyethylene Glycol (Miralax) 17 gm DAILYPRN PRN NG Constipation 11/21/19 13:00 12/21/19 08:14 Temazepam (Restoril) 15 mg HSPRN PRN NG Insomnia 11/21/19 13:00 11/28/19 08:14 Vancomycin HCl (Vanco rx to dose) 1 ea DAILY PRN MISC Per rx protocol 11/22/19 14:45 12/22/19 14:44 Allergies: Coded Allergies: LISINOPRIL (Verified Allergy, Unknown, 11/21/19) SIMVASTATIN (Verified Allergy, Unknown, 11/21/19) TERAZOSIN (Verified Allergy, Unknown, 11/21/19) ROS Limited/Unobtainable: Yes Subjective 83 YO M admitted with respiratory failure. Now pneumonia, UTI and sepsis. Cover for Int Med-DR Garza. Intubated and sedated. ICU Objective Last Vital Signs Date Time Temp Pulse Resp B/P (MAP) Pulse Ox O2 Delivery O2 Flow Rate FiO2 11/26/19 18:03 154/97 11/26/19 18:00 73 16 100 11/26/19 16:50 30 11/26/19 16:00 99.1 11/26/19 16:00 Mechanical Ventilator Mechanical Ventilator Mechanical Ventilator Mechanical Ventilator Mechanical Ventilator Laboratory Tests Test 11/26/19 04:05 11/26/19 16:01 White Blood Count 10.9 K/UL (4.8-10.8) H Red Blood Count 2.52 M/UL (4.70-6.10) L Hemoglobin 7.4 G/DL (14.2-18.0) L Hematocrit 22.7 % (42.0-52.0) L Mean Corpuscular Volume 90 FL (80-99) Mean Corpuscular Hemoglobin 29.6 PG (27.0-31.0) Mean Corpuscular Hemoglobin Concent 32.8 G/DL (32.0-36.0) Red Cell Distribution Width 18.5 % (11.6-14.8) H Platelet Count 335 K/UL (150-450) Mean Platelet Volume 4.5 FL (6.5-10.1) L Neutrophils (%) (Auto) % (45.0-75.0) Lymphocytes (%) (Auto) % (20.0-45.0) Monocytes (%) (Auto) % (1.0-10.0) Eosinophils (%) (Auto) % (0.0-3.0) Basophils (%) (Auto) % (0.0-2.0) Activated Partial Thromboplast Time 72 SEC (23-33) H Sodium Level 141 MMOL/L (136-145) Potassium Level 3.5 MMOL/L (3.5-5.1) Chloride Level 106 MMOL/L (98-107) Carbon Dioxide Level 24 MMOL/L (21-32) Anion Gap 11 mmol/L (5-15) Blood Urea Nitrogen 47 mg/dL (7-18) H Creatinine 5.0 MG/DL (0.55-1.30) H Estimat Glomerular Filtration Rate 13.5 mL/min (>60) Glucose Level 114 MG/DL (74-106) H Uric Acid 8.9 MG/DL (2.6-7.2) H Calcium Level 8.6 MG/DL (8.5-10.1) Phosphorus Level 3.3 MG/DL (2.5-4.9) Magnesium Level 2.0 MG/DL (1.8-2.4) Total Bilirubin 0.2 MG/DL (0.2-1.0) Aspartate Amino Transf (AST/SGOT) 13 U/L (15-37) L Alanine Aminotransferase (ALT/SGPT) 18 U/L (12-78) Alkaline Phosphatase 51 U/L (46-116) C-Reactive Protein, Quantitative 7.1 mg/dL (0.00-0.90) H Pro-B-Type Natriuretic Peptide > 89334 pg/mL (0-125) H Total Protein 6.3 G/DL (6.4-8.2) L Albumin 2.0 G/DL (3.4-5.0) L Globulin 4.3 g/dL Albumin/Globulin Ratio 0.5 (1.0-2.7) L Random Vancomycin Level 17.2 ug/mL Arterial Blood pH 7.379 (7.350-7.450) Arterial Blood Partial Pressure CO2 39.6 mmHg (35.0-45.0) Arterial Blood Partial Pressure O2 353.7 mmHg (75.0-100.0) H Arterial Blood HCO3 22.8 mmol/L (22.0-26.0) Arterial Blood Oxygen Saturation 98.5 % (95-100) Arterial Blood Base Excess -2.1 (-2-2) L Shade Test Positive Intake and Output 11/25/19 11/26/19 19:00 07:00 Intake Total 1754.112 ml 1769.112 ml Output Total 1270 ml 1250 ml Balance 484.112 ml 519.112 ml Free Water 100 ml 120 ml IV Total 1224.112 ml 1169.112 ml Tube Feeding 400 ml 480 ml Other 30 ml Output Urine Total 1270 ml 1250 ml # Bowel Movements 2 4 Objective PHYSICAL EXAMINATION: GENERAL: The patient is well-developed, well-nourished male, who is intubated and sedated in the intensive care unit. HEENT: Eyes, pupils are equal and responsive to light and accommodation. Extraocular movements are intact. NECK: Supple without lymphadenopathy. CHEST: Mech vent; Bilateral expiratory air sounds, otherwise clear to auscultation without rales. CARDIOVASCULAR: Regular rhythm and rate. S1 and S2 normal without murmurs, rubs, or gallops. ABDOMEN: Soft, nontender, and nondistended. Positive bowel sounds. No evidence of hepatosplenomegaly. Currently, no rebound or guarding noted. EXTREMITIES: Negative for clubbing, cyanosis, or edema. RECTAL/GENITAL: Not performed. NEUROLOGIC: Cranial nerves II through XII are grossly intact without focal deficits. Motor strength is 5/5 bilaterally. Deep tendon reflexes are 2+ plantar. Assessment/Plan Assessment/Plan ASSESSMENT: This is an 83-year-old male. 1. Respiratory failure. 2. Congestive heart failure. 3. Atrial fibrillation. 4. Altered mental status. 5. Urinary tract infection. 6. Renal failure. 7. Hypertension. 8. Alzheimer's dementia. 9. Benign prostatic hypertrophy. 10. urinary tract infection-ESBL E. Coli and pseudamonas aeruginosa. 11. Sepsis-Staph Warneri 12. pneumonia=pseudamonas aeruginosa TREATMENT: 1. Congestive heart failure. A Cardiology consultation has been obtained with Dr. Vasu Zaidi. We will follow recommendations of Cardiology. The patient is currently receiving intravenous Lasix. 2. Respiratory failure. A Pulmonary consultation has been obtained with Dr. Susannah Hightower. The patient is currently intubated in the intensive care unit. We will follow recommendations of Pulmonary. ABX=meropenem per ID= Dr Hicks 3. Atrial fibrillation as above. A Cardiology consultation has been obtained with Dr. Vasu Zaidi. 4. Renal failure. A Nephrology consultation has been obtained with Dr. Ellison. We will follow recommendations of Nephrology. 5. Hypertension. The patient is currently hypotensive in the intensive care unit. 6. Alzheimer's dementia. 7. Benign prostatic hypertrophy. 8. ABX = meropenem per ID Abisai Zamarripa MD Nov 26, 2019 19:04
--- NOTE | 2019-11-26 19:30 | NUR ---
NURSE NOTES: Report received from SYED Lawler. Patient in bed no s/s of acute distress at this time. A-fib controlled on personnel monitor HR 75. orally intubated ETT 7.5/ 25cm at lip line. AC 16, TV 550, FiO2 30% satting 97%. OGT patent and asymptomatic. [employer] 1.2 is running at 40cc/hr. No residual noted. Patiño in place draining to gravity. IV site intact patent and asymptomatic. On Heparin drip at 12units/kg/hr for AFIB, no bleeding. Bed in lowest position. Side rails up x 3. Side rails up x3. Contact isolation maintained and observed. patient with episode of pulling out tubing despite of bilateral soft wrist restraint. SCD's noted on bilateral lower extremities. Will resume plan of care.
--- NOTE | 2019-11-26 19:45 | NUR ---
HAND-OFF: Report given to SYED Castillo.
--- NOTE | 2019-11-26 21:00 | NUR ---
NURSE NOTES: started Fentanyl drip at 100mcg/hr RASS score of +1 Restless comfort measure provided, reality orientation provided, encouraged patient to verbalize needs, fears and feelings to staff but pt is intubated. will continue to monitor patient.
--- NOTE | 2019-11-26 21:25 | NUR ---
RESPIRATORY NOTE: PT RECEIVED STABLE ON CURRENT CMV SETTINGS. NO S/S OF RESPIRATORY DISTRESS NOTED AT TIME. VENT CIRCUIT SECURE AND OUT OF THE WAY. WILL CONTINUE TO CLOSELY MONITOR.
--- NOTE | 2019-11-26 23:00 | NUR ---
NURSE NOTES: patient in bed no s/s of acute distress noted. Continue on Fentanyl drip at 100mcg/hr RASS score of -2 light sedation comfort measure provided. Continue on Heparin 12units/kg/hr. [id number] axillary cooling measure not effective, tylenol given. will continue to monitor patient.
[2019-11-26] MEDS: Acetaminophen 650mg/20.3ml NG PRN (23:15)
--- NOTE | 2019-11-26 23:15 | NUR ---
NURSE NOTES: patient in bed no s/s of acute distress noted. Continue on Fentanyl drip at 100mcg/hr RASS score of -2 light sedation comfort measure provided. Continue on Heparin 12units/kg/hr. [id number] axillary cooling measure not effective, tylenol given. BP 178/103 Hydralazine 10mg via OGT given. will continue to monitor patient.
[2019-11-27] VITALS (54 sets, daily range): BP systolic 124–208; BP diastolic 76–119
[2019-11-27] MEDS: LORazepam Inj 2mg/ml 1ml IV PRN (00:20)
[2019-11-27] MEDS: Heparin 25,000u/D5W 500ml 500 ML IV SCH ×2 (00:21→21:52)
--- NOTE | 2019-11-27 00:24 | NUR ---
NURSE NOTES: Patient with episode of restlessness, pulling out tubing despite of bilateral soft wrist restraint and Fentanyl drip reposition pt in bed, explained the risk and benefits of restraint and medication talk therapy provided no effective. Ativan given will continue to monitor patient.
--- NOTE | 2019-11-27 02:20 | NUR ---
NURSE NOTES: patient continue on Heparin drip at 12uints/kg/hr and Fentanyl drip at 200mcg/hr RASS score -2. frequent visual checks continued. turned and repositioned patient in bed. comfort measure provided. On P200 mattress for wound management. will continue plan of care.
--- NOTE | 2019-11-27 03:00 | NUR ---
NURSE NOTES: Patient BP 180/90 pt restless titrated Fentanyl drip to 300mcg/hr will monitor patient. Bed bath given.
--- NOTE | 2019-11-27 05:02 | NUR ---
NURSE NOTES: Called lab spoke with Amy stat PTT not yet ready. will follow up.
[2019-11-27] MEDS: HydrALAZINE 10mg Tab NG SCH ×2 (05:12→12:00)
--- NOTE | 2019-11-27 05:45 | NUR ---
Timed PTT 80 continue the same dose and timed PTT in am. Charge nurse aware.
[2019-11-27 05:47] LABS: HEMATOCRIT 23.8 % (42.0-52.0); HEMOGLOBIN 7.9 G/DL (14.2-18.0); MEAN CORPUSCULAR VOLUME 90 FL (80-99); PLATELET COUNT 361 K/UL (150-450); RED BLOOD COUNT 2.65 M/UL (4.70-6.10); WHITE BLOOD COUNT 14.3 K/UL (4.8-10.8)
[2019-11-27 05:50] LABS: ALANINE AMINOTRANSFERASE 12 U/L (12-78); ALBUMIN/GLOBULIN RATIO 0.4 (1.0-2.7); ALKALINE PHOSPHATASE 55 U/L (46-116); ANION GAP 11 mmol/L (5-15); ASPARTATE AMINO TRANSFERASE 11 U/L (15-37); BILIRUBIN,TOTAL 0.3 MG/DL (0.2-1.0); BLOOD UREA NITROGEN 44 mg/dL (7-18); CALCIUM 8.7 MG/DL (8.5-10.1); CARBON DIOXIDE 24 MMOL/L (21-32); CHLORIDE 105 MMOL/L (98-107); CREATININE 4.8 MG/DL (0.55-1.30); PHOSPHORUS 2.9 MG/DL (2.5-4.9); POTASSIUM 3.6 MMOL/L (3.5-5.1); SODIUM 140 MMOL/L (136-145)
--- NOTE | 2019-11-27 07:23 | NUR ---
HAND-OFF: Report given to Rafael LYNCH.
[2019-11-27] MEDS: D5 1/2NS 1,000 ML IV SCH (07:34)
--- NOTE | 2019-11-27 08:44 | NUR ---
CONSULTING SERVICES ASSOCIATE NOTE SW left voicemails to pt's eldest daughter Catracho Bolanos [phone] (it went straight to ) and pt's youngest daughter Paul Bullock [phone] (it went straight to ) for call back. Signed: 11/27/19 at 0846 by SRINIVASAN CADE <Co-Signature Required>
--- NOTE | 2019-11-27 09:45 | NUR ---
NURSE NOTES: Dr. Ellison made aware of patient chemistry levels, no verbal orders given.
--- NOTE | 2019-11-27 10:11 | Cardiology Progress Note ---
Assessment/Plan Assessment/Plan 1. Permanent versus paroxysmal episodes of atrial fibrillation. 2. Tachycardia. 3. Renal insufficiency. 4. Obstructive uropathy. 5. History of hypertension. 6. Prostatic hypertrophy. 7. History of latent tuberculosis. 8. History of heart failure. 9. History of hepatitis C infection. 10. Respiratory failure with respiratory acidosis, now on vent cxr personally reviewed tele personally reviewed ekg reviewed bp seem ok need tigher control, if not need dialysis will consider adding hydralazine torp abn likely due to renal insuf on heparin anticoagulation pending dicision re dialysis catheter implantation need to be in neg fluid balance Subjective ROS Limited/Unobtainable: Yes Subjective vent isolation Objective Last 24 Hour Vital Signs Date Time Temp Pulse Resp B/P (MAP) Pulse Ox O2 Delivery O2 Flow Rate FiO2 11/27/19 08:54 76 16 30 11/27/19 07:33 16 Mechanical Ventilator 30 11/27/19 07:30 68 16 30 11/27/19 07:00 16 Mechanical Ventilator 30 11/27/19 07:00 57 16 139/79 (99) 98 11/27/19 06:30 61 16 150/85 (106) 98 11/27/19 06:30 72 20 11/27/19 06:00 62 16 174/95 (121) 100 11/27/19 06:00 16 Mechanical Ventilator 30 11/27/19 05:30 55 16 158/89 (112) 98 11/27/19 05:20 65 16 30 11/27/19 05:12 159/92 11/27/19 05:00 16 Mechanical Ventilator 30 11/27/19 05:00 55 16 155/80 (105) 98 11/27/19 04:30 60 16 159/92 (114) 98 11/27/19 04:00 98.7 64 16 159/90 (113) 98 11/27/19 04:00 16 Mechanical Ventilator 30 11/27/19 04:00 30 11/27/19 04:00 57 11/27/19 04:00 Mechanical Ventilator Mechanical Ventilator Mechanical Ventilator Mechanical Ventilator Mechanical Ventilator 11/27/19 03:30 62 16 169/87 (114) 98 11/27/19 03:25 59 16 176/103 (127) 100 11/27/19 03:18 64 18 186/108 (134) 100 11/27/19 03:15 60 16 173/104 (127) 100 11/27/19 03:08 58 16 30 11/27/19 03:07 99.8 11/27/19 03:04 59 16 180/99 (126) 100 11/27/19 03:00 61 16 174/101 (125) 100 11/27/19 03:00 16 Mechanical Ventilator 30 11/27/19 02:54 63 16 184/94 (124) 100 11/27/19 02:37 16 Mechanical Ventilator 30 11/27/19 02:36 16 Mechanical Ventilator 30 11/27/19 02:30 57 16 178/101 (126) 100 11/27/19 02:15 57 16 165/101 (122) 100 11/27/19 02:00 16 Mechanical Ventilator 30 11/27/19 02:00 57 16 165/98 (120) 100 11/27/19 01:45 57 16 170/104 (126) 100 11/27/19 01:30 57 16 152/92 (112) 100 11/27/19 01:15 60 16 160/111 (127) 100 11/27/19 01:15 68 16 30 11/27/19 01:00 64 16 165/92 (116) 100 11/27/19 01:00 16 Mechanical Ventilator 30 11/27/19 00:45 63 16 159/98 (118) 100 11/27/19 00:30 67 16 154/95 (114) 100 11/27/19 00:22 70 16 173/119 (137) 100 11/27/19 00:15 69 16 172/105 (127) 100 11/27/19 00:03 99.8 73 16 174/107 (129) 100 11/27/19 00:00 30 11/27/19 00:00 Mechanical Ventilator Mechanical Ventilator Mechanical Ventilator Mechanical Ventilator Mechanical Ventilator 11/27/19 00:00 72 11/27/19 00:00 16 Mechanical Ventilator 30 11/26/19 23:45 77 16 175/109 (131) 95 11/26/19 23:45 99.8 11/26/19 23:43 78 16 167/96 (119) 97 11/26/19 23:15 178/103 11/26/19 23:15 77 16 180/109 (132) 97 11/26/19 23:07 77 16 178/103 (128) 98 11/26/19 23:00 16 Mechanical Ventilator 30 11/26/19 23:00 73 16 182/100 (127) 100 11/26/19 22:56 74 18 30 11/26/19 22:45 69 16 171/103 (125) 98 11/26/19 22:30 69 16 171/103 (125) 99 11/26/19 22:20 72 16 159/110 (126) 97 11/26/19 22:15 69 16 167/101 (123) 98 11/26/19 22:00 16 Mechanical Ventilator 30 11/26/19 22:00 68 16 153/98 (116) 98 11/26/19 21:45 72 16 167/103 (124) 97 11/26/19 21:30 77 16 164/89 (114) 98 11/26/19 21:25 83 16 30 11/26/19 21:15 84 15 166/95 (118) 96 11/26/19 21:11 84 16 170/94 (119) 97 11/26/19 21:00 16 Mechanical Ventilator 30 11/26/19 21:00 80 16 161/105 (123) 97 11/26/19 20:14 94 158/98 11/26/19 20:00 72 11/26/19 20:00 30 11/26/19 20:00 99.8 85 22 158/98 (118) 96 11/26/19 20:00 Mechanical Ventilator Mechanical Ventilator Mechanical Ventilator Mechanical Ventilator Mechanical Ventilator 11/26/19 19:27 72 16 30 11/26/19 19:00 72 16 146/89 (108) 97 11/26/19 18:03 154/97 11/26/19 18:00 73 16 154/97 (116) 100 11/26/19 17:00 71 14 143/94 (110) 96 11/26/19 16:50 69 16 30 11/26/19 16:20 30 11/26/19 16:00 107 11/26/19 16:00 99.1 100 20 145/85 (105) 100 11/26/19 16:00 100 11/26/19 16:00 Mechanical Ventilator Mechanical Ventilator Mechanical Ventilator Mechanical Ventilator Mechanical Ventilator 11/26/19 15:30 117 16 30 11/26/19 15:27 109 22 157/87 (110) 100 11/26/19 15:00 99 16 181/112 (135) 96 3/23/20 15:00 100 11/26/19 14:55 127 19 95 11/26/19 14:50 97 24 72 11/26/19 14:45 106 26 83 11/26/19 14:40 93 26 60 11/26/19 14:38 108 25 74 11/26/19 14:37 97 24 77 11/26/19 14:36 92 23 75 11/26/19 14:35 100 11/26/19 14:35 93 24 77 11/26/19 14:34 97 24 85 11/26/19 14:30 Mechanical Ventilator 100 11/26/19 14:00 74 22 154/92 (112) 99 11/26/19 13:03 71 16 30 11/26/19 13:00 71 18 143/100 (114) 97 11/26/19 12:00 30 11/26/19 12:00 157/94 11/26/19 12:00 157/94 11/26/19 12:00 98.7 80 22 148/95 (112) 96 11/26/19 12:00 78 11/26/19 12:00 Mechanical Ventilator Mechanical Ventilator Mechanical Ventilator Mechanical Ventilator Mechanical Ventilator 11/26/19 11:10 71 16 30 11/26/19 11:00 70 16 157/94 (115) 97 Neck: supple Cardiovascular: irregularly irregular Respiratory/Chest: rhonchi - bilaterally Abdomen: normal bowel sounds, non tender, soft Extremities: no swelling Intake and Output 11/26/19 11/27/19 19:00 07:00 Intake Total 1720.820 ml 1850.106 ml Output Total 1895 ml 1170 ml Balance -174.180 ml 680.106 ml Free Water 50 ml 200 ml IV Total 1230.820 ml 1110.106 ml Tube Feeding 440 ml 480 ml Other 60 ml Output Urine Total 1895 ml 1170 ml Laboratory Tests Test 11/26/19 16:01 11/27/19 04:15 Arterial Blood pH 7.379 (7.350-7.450) Arterial Blood Partial Pressure CO2 39.6 mmHg (35.0-45.0) Arterial Blood Partial Pressure O2 353.7 mmHg (75.0-100.0) H Arterial Blood HCO3 22.8 mmol/L (22.0-26.0) Arterial Blood Oxygen Saturation 98.5 % (95-100) Arterial Blood Base Excess -2.1 (-2-2) L Shade Test Positive White Blood Count 14.3 K/UL (4.8-10.8) H Red Blood Count 2.65 M/UL (4.70-6.10) L Hemoglobin 7.9 G/DL (14.2-18.0) L Hematocrit 23.8 % (42.0-52.0) L Mean Corpuscular Volume 90 FL (80-99) Mean Corpuscular Hemoglobin 29.7 PG (27.0-31.0) Mean Corpuscular Hemoglobin Concent 33.0 G/DL (32.0-36.0) Red Cell Distribution Width 18.0 % (11.6-14.8) H Platelet Count 361 K/UL (150-450) Mean Platelet Volume 4.4 FL (6.5-10.1) L Neutrophils (%) (Auto) % (45.0-75.0) Lymphocytes (%) (Auto) % (20.0-45.0) Monocytes (%) (Auto) % (1.0-10.0) Eosinophils (%) (Auto) % (0.0-3.0) Basophils (%) (Auto) % (0.0-2.0) Activated Partial Thromboplast Time 80 SEC (23-33) H Sodium Level 140 MMOL/L (136-145) Potassium Level 3.6 MMOL/L (3.5-5.1) Chloride Level 105 MMOL/L (98-107) Carbon Dioxide Level 24 MMOL/L (21-32) Anion Gap 11 mmol/L (5-15) Blood Urea Nitrogen 44 mg/dL (7-18) H Creatinine 4.8 MG/DL (0.55-1.30) H Estimat Glomerular Filtration Rate 14.2 mL/min (>60) Glucose Level 101 MG/DL (74-106) Uric Acid 8.5 MG/DL (2.6-7.2) H Calcium Level 8.7 MG/DL (8.5-10.1) Phosphorus Level 2.9 MG/DL (2.5-4.9) Magnesium Level 1.9 MG/DL (1.8-2.4) Total Bilirubin 0.3 MG/DL (0.2-1.0) Aspartate Amino Transf (AST/SGOT) 11 U/L (15-37) L Alanine Aminotransferase (ALT/SGPT) 12 U/L (12-78) Alkaline Phosphatase 55 U/L (46-116) C-Reactive Protein, Quantitative 6.5 mg/dL (0.00-0.90) H Pro-B-Type Natriuretic Peptide > 65012 pg/mL (0-125) H Total Protein 6.6 G/DL (6.4-8.2) Albumin 2.0 G/DL (3.4-5.0) L Globulin 4.6 g/dL Albumin/Globulin Ratio 0.4 (1.0-2.7) L Vasu Zaidi MD Nov 27, 2019 10:11
--- NOTE | 2019-11-27 10:11 | NUR ---
CASE MANAGEMENT:REVIEW 11/27/19 SI:PULMONARY EDEMA . ATRIAL FIBRILLATION . SEPSIS . UTI . RENAL FAILURE . TROP (+) . RESPIRATORY FAILURE . PNA . CHF MULTIPLE RENAL CYST . +VRE 98.7 64 16 159/90 98% MECHANICAL VENTILATOR FiO2 30 WBC 14.3 H/H 7.9/23.8 BUN 44 CREAT 4.8 URIC ACID 8.5 CRP 6.5 BNP >33599 PTT 80 IS:HEPARIN GTT IV D5@50ML/HR IV MEROPENEM BID IV PROTONIX BID LOPRESSOR NG BID HYDRALAZINE NG Q6HR NTG TD QD IV MORPHINE SULFATE Q4HR/PRN IV FENTANYL Q24HR ASA NG QD \: INTENSIVE CARE UNIT DCP: MITCH CARE WHEN STABLE PLAN: SPUTUM CX(+) PSEUDOMONAS AERUGINOSA BLOOD CX- PENDING URINE (+) E.COLI POSSIBLE BLOOD TRANSFUSION MONITOR H/H CHEST X-RAY- SLIGHTLY WORSENING PULMONARY EDEMA
[2019-11-27] MEDS: Aspirin Baby 81mg NG SCH (10:27)
[2019-11-27] MEDS: Meropenem 500 MG in NS 55 ML IVPB SCH ×2 (10:27→20:33)
[2019-11-27] MEDS: Metoprolol Tartrate 50mg tab NG SCH ×2 (10:27→20:33)
[2019-11-27] MEDS: Pantoprazole Inj IV SCH ×2 (10:28→20:34)
[2019-11-27] MEDS: Docusate 100mg/10ml Liq NG SCH ×3 (10:28→17:59)
--- NOTE | 2019-11-27 10:30 | NUR ---
NURSE NOTES: Dr. Hightower made aware of patient respiratory status after patient re intubation, no verbal orders given at this time.
--- NOTE | 2019-11-27 12:01 | Pulmonolgy Critical Care Note ---
Critical Care - Asmt/Plan Problems: (1) Acute hypercapnic respiratory failure (2) Paroxysmal A-fib (3) Anemia, chronic renal failure (4) Acute on chronic renal insufficiency (5) Chronic hepatitis (6) Moderate pulmonary arterial systolic hypertension (7) Left ventricular ejection fraction greater than or equal to 40 percent (8) History of hypertension (9) Alzheimer's dementia (10) BPH (benign prostatic hyperplasia) Respiratory: monitor respiratory rate, adjust FIO2, CXR Cardiac: continue to monitor HR/BP Infectious Disease: check cultures, continue antibiotics Gastrointestinal: continue feedings/current rate Endocrine: monitor blood sugar Hematologic: monitor H/H, transfuse if hgb<8.5 Neurologic: PRN Ativan Affect: PRN ativan Notes Reviewed: pile driving 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, cardio Discussed with: nurses, consultants, classification case managermanager portable - Objective Last 24 Hour Vital Signs Date Time Temp Pulse Resp B/P (MAP) Pulse Ox O2 Delivery O2 Flow Rate FiO2 11/27/19 11:28 89 16 30 11/27/19 10:30 84 16 163/92 (115) 97 11/27/19 10:27 86 149/88 11/27/19 10:00 80 16 149/88 (108) 97 11/27/19 09:30 76 16 163/87 (112) 96 11/27/19 09:00 78 16 176/100 (125) 96 11/27/19 08:54 76 16 30 11/27/19 08:30 76 16 177/114 (135) 96 11/27/19 08:00 30 11/27/19 08:00 97.9 44 16 208/118 (148) 92 11/27/19 07:33 16 Mechanical Ventilator 30 11/27/19 07:30 57 16 155/82 (106) 99 11/27/19 07:30 68 16 30 11/27/19 07:00 16 Mechanical Ventilator 30 11/27/19 07:00 57 16 139/79 (99) 98 11/27/19 06:30 61 16 150/85 (106) 98 11/27/19 06:30 72 20 11/27/19 06:00 62 16 174/95 (121) 100 11/27/19 06:00 16 Mechanical Ventilator 30 11/27/19 05:30 55 16 158/89 (112) 98 11/27/19 05:20 65 16 30 11/27/19 05:12 159/92 11/27/19 05:00 16 Mechanical Ventilator 30 11/27/19 05:00 55 16 155/80 (105) 98 11/27/19 04:30 60 16 159/92 (114) 98 11/27/19 04:00 98.7 64 16 159/90 (113) 98 11/27/19 04:00 16 Mechanical Ventilator 30 11/27/19 04:00 30 11/27/19 04:00 57 11/27/19 04:00 Mechanical Ventilator Mechanical Ventilator Mechanical Ventilator Mechanical Ventilator Mechanical Ventilator 11/27/19 03:30 62 16 169/87 (114) 98 11/27/19 03:25 59 16 176/103 (127) 100 11/27/19 03:18 64 18 186/108 (134) 100 11/27/19 03:15 60 16 173/104 (127) 100 11/27/19 03:08 58 16 30 11/27/19 03:07 99.8 11/27/19 03:04 59 16 180/99 (126) 100 11/27/19 03:00 61 16 174/101 (125) 100 11/27/19 03:00 16 Mechanical Ventilator 30 11/27/19 02:54 63 16 184/94 (124) 100 11/27/19 02:37 16 Mechanical Ventilator 30 11/27/19 02:36 16 Mechanical Ventilator 30 11/27/19 02:30 57 16 178/101 (126) 100 11/27/19 02:15 57 16 165/101 (122) 100 11/27/19 02:00 16 Mechanical Ventilator 30 11/27/19 02:00 57 16 165/98 (120) 100 11/27/19 01:45 57 16 170/104 (126) 100 11/27/19 01:30 57 16 152/92 (112) 100 11/27/19 01:15 60 16 160/111 (127) 100 11/27/19 01:15 68 16 30 11/27/19 01:00 64 16 165/92 (116) 100 11/27/19 01:00 16 Mechanical Ventilator 30 11/27/19 00:45 63 16 159/98 (118) 100 11/27/19 00:30 67 16 154/95 (114) 100 11/27/19 00:22 70 16 173/119 (137) 100 11/27/19 00:15 69 16 172/105 (127) 100 11/27/19 00:03 99.8 73 16 174/107 (129) 100 11/27/19 00:00 30 11/27/19 00:00 Mechanical Ventilator Mechanical Ventilator Mechanical Ventilator Mechanical Ventilator Mechanical Ventilator 11/27/19 00:00 72 11/27/19 00:00 16 Mechanical Ventilator 30 11/26/19 23:45 77 16 175/109 (131) 95 11/26/19 23:45 99.8 11/26/19 23:43 78 16 167/96 (119) 97 11/26/19 23:15 178/103 11/26/19 23:15 77 16 180/109 (132) 97 11/26/19 23:07 77 16 178/103 (128) 98 11/26/19 23:00 16 Mechanical Ventilator 30 11/26/19 23:00 73 16 182/100 (127) 100 11/26/19 22:56 74 18 30 11/26/19 22:45 69 16 171/103 (125) 98 11/26/19 22:30 69 16 171/103 (125) 99 11/26/19 22:20 72 16 159/110 (126) 97 11/26/19 22:15 69 16 167/101 (123) 98 11/26/19 22:00 16 Mechanical Ventilator 30 11/26/19 22:00 68 16 153/98 (116) 98 11/26/19 21:45 72 16 167/103 (124) 97 11/26/19 21:30 77 16 164/89 (114) 98 11/26/19 21:25 83 16 30 11/26/19 21:15 84 15 166/95 (118) 96 11/26/19 21:11 84 16 170/94 (119) 97 11/26/19 21:00 16 Mechanical Ventilator 30 11/26/19 21:00 80 16 161/105 (123) 97 11/26/19 20:14 94 158/98 11/26/19 20:00 72 11/26/19 20:00 30 11/26/19 20:00 99.8 85 22 158/98 (118) 96 11/26/19 20:00 Mechanical Ventilator Mechanical Ventilator Mechanical Ventilator Mechanical Ventilator Mechanical Ventilator 11/26/19 19:27 72 16 30 11/26/19 19:00 72 16 146/89 (108) 97 11/26/19 18:03 154/97 11/26/19 18:00 73 16 154/97 (116) 100 11/26/19 17:00 71 14 143/94 (110) 96 11/26/19 16:50 69 16 30 11/26/19 16:20 30 11/26/19 16:00 107 11/26/19 16:00 99.1 100 20 145/85 (105) 100 11/26/19 16:00 100 11/26/19 16:00 Mechanical Ventilator Mechanical Ventilator Mechanical Ventilator Mechanical Ventilator Mechanical Ventilator 11/26/19 15:30 117 16 30 11/26/19 15:27 109 22 157/87 (110) 100 11/26/19 15:00 99 16 181/112 (135) 96 11/26/19 15:00 100 11/26/19 14:55 127 19 95 11/26/19 14:50 97 24 72 11/26/19 14:45 106 26 83 11/26/19 14:40 93 26 60 11/26/19 14:38 108 25 74 11/26/19 14:37 97 24 77 11/26/19 14:36 92 23 75 11/26/19 14:35 100 11/26/19 14:35 93 24 77 11/26/19 14:34 97 24 85 11/26/19 14:30 Mechanical Ventilator 100 11/26/19 14:00 74 22 154/92 (112) 99 11/26/19 13:03 71 16 30 11/26/19 13:00 71 18 143/100 (114) 97 11/26/19 12:00 30 11/26/19 12:00 157/94 11/26/19 12:00 157/94 11/26/19 12:00 98.7 80 22 148/95 (112) 96 11/26/19 12:00 78 11/26/19 12:00 Mechanical Ventilator Mechanical Ventilator Mechanical Ventilator Mechanical Ventilator Mechanical Ventilator Status: sedated Condition: critical HEENT: atraumatic Lungs: clear Heart: HR/BP stable, HR/BP unstable Abdomen: soft, non-tender Extremities: no C/C/E Critical Care - Subjective ROS Limited/Unobtainable: Yes Condition: critical EKG Rhythm: Sinus Rhythm FI02: 30 Vent Support Breath Rate: 16 Vent Support Mode: AC Vent Tidal Volume: 550 Sputum Amount: Small PEEP: 0.0 PIP: 30 Tube Feeding Amount: 40 I&O: Intake and Output 11/26/19 11/27/19 19:00 07:00 Intake Total 1720.820 ml 1850.106 ml Output Total 1895 ml 1170 ml Balance -174.180 ml 680.106 ml Free Water 50 ml 200 ml IV Total 1230.820 ml 1110.106 ml Tube Feeding 440 ml 480 ml Other 60 ml Output Urine Total 1895 ml 1170 ml ET-Tube: 7.5 ET Position: 24 Labs: Laboratory Tests Test 11/26/19 16:01 11/27/19 04:15 Arterial Blood pH 7.379 (7.350-7.450) Arterial Blood Partial Pressure CO2 39.6 mmHg (35.0-45.0) Arterial Blood Partial Pressure O2 353.7 mmHg (75.0-100.0) H Arterial Blood HCO3 22.8 mmol/L (22.0-26.0) Arterial Blood Oxygen Saturation 98.5 % (95-100) Arterial Blood Base Excess -2.1 (-2-2) L Shade Test Positive White Blood Count 14.3 K/UL (4.8-10.8) H Red Blood Count 2.65 M/UL (4.70-6.10) L Hemoglobin 7.9 G/DL (14.2-18.0) L Hematocrit 23.8 % (42.0-52.0) L Mean Corpuscular Volume 90 FL (80-99) Mean Corpuscular Hemoglobin 29.7 PG (27.0-31.0) Mean Corpuscular Hemoglobin Concent 33.0 G/DL (32.0-36.0) Red Cell Distribution Width 18.0 % (11.6-14.8) H Platelet Count 361 K/UL (150-450) Mean Platelet Volume 4.4 FL (6.5-10.1) L Neutrophils (%) (Auto) % (45.0-75.0) Lymphocytes (%) (Auto) % (20.0-45.0) Monocytes (%) (Auto) % (1.0-10.0) Eosinophils (%) (Auto) % (0.0-3.0) Basophils (%) (Auto) % (0.0-2.0) Activated Partial Thromboplast Time 80 SEC (23-33) H Sodium Level 140 MMOL/L (136-145) Potassium Level 3.6 MMOL/L (3.5-5.1) Chloride Level 105 MMOL/L (98-107) Carbon Dioxide Level 24 MMOL/L (21-32) Anion Gap 11 mmol/L (5-15) Blood Urea Nitrogen 44 mg/dL (7-18) H Creatinine 4.8 MG/DL (0.55-1.30) H Estimat Glomerular Filtration Rate 14.2 mL/min (>60) Glucose Level 101 MG/DL (74-106) Uric Acid 8.5 MG/DL (2.6-7.2) H Calcium Level 8.7 MG/DL (8.5-10.1) Phosphorus Level 2.9 MG/DL (2.5-4.9) Magnesium Level 1.9 MG/DL (1.8-2.4) Total Bilirubin 0.3 MG/DL (0.2-1.0) Aspartate Amino Transf (AST/SGOT) 11 U/L (15-37) L Alanine Aminotransferase (ALT/SGPT) 12 U/L (12-78) Alkaline Phosphatase 55 U/L (46-116) C-Reactive Protein, Quantitative 6.5 mg/dL (0.00-0.90) H Pro-B-Type Natriuretic Peptide > 48984 pg/mL (0-125) H Total Protein 6.6 G/DL (6.4-8.2) Albumin 2.0 G/DL (3.4-5.0) L Globulin 4.6 g/dL Albumin/Globulin Ratio 0.4 (1.0-2.7) L Susannah Hightower MD Nov 27, 2019 12:01
--- NOTE | 2019-11-27 12:30 | NUR ---
NURSE NOTES: Dr. Hicks made aware of the patient WBC count of 14.3 with no verbal orders given. will remain on current antibiotics.
--- NOTE | 2019-11-27 12:43 | Nephrology Progress Note ---
Assessment/Plan Problem List: (1) Acute on chronic renal insufficiency Assessment: Serum creatinine gradually decreasing (2) Acute hypercapnic respiratory failure (3) Anemia in chronic kidney disease (CKD) (4) BPH (benign prostatic hyperplasia) Assessment Acute renal failure Possible underlying chronic kidney failure Hyperkalemia Anemia other conditions: (1) Acute hypercapnic respiratory failure (2) Paroxysmal A-fib (3) Anemia, chronic renal failure (4) History of hypertension (5) Alzheimer's dementia (6) Chronic hepatitis (7) BPH (benign prostatic hyperplasia) Plan Increase hydralazine dose Lopressor dose adjusted Add Norvasc Nitrate Stop hydration Trial of Zaroxolyn as chest x-ray indicates worsening CHF Monitor intake and output Monitor renal parameters Avoid nephrotoxic's Kidney ultrasound results noted indicative of chronicity 2D echocardiogram result noted ejection fraction 55% Anemia work-up noted Per orders Discussed with Dr. Zaidi Subjective ROS Limited/Unobtainable: Yes Objective Objective Last 24 Hour Vital Signs Date Time Temp Pulse Resp B/P (MAP) Pulse Ox O2 Delivery O2 Flow Rate FiO2 11/27/19 12:00 84 11/27/19 11:30 77 16 156/90 (112) 97 11/27/19 11:28 89 16 30 11/27/19 11:00 89 16 173/90 (117) 97 11/27/19 10:30 84 16 163/92 (115) 97 11/27/19 10:27 86 149/88 11/27/19 10:00 80 16 149/88 (108) 97 11/27/19 09:30 76 16 163/87 (112) 96 11/27/19 09:00 78 16 176/100 (125) 96 11/27/19 08:54 76 16 30 11/27/19 08:30 76 16 177/114 (135) 96 11/27/19 08:00 Mechanical Ventilator Mechanical Ventilator Mechanical Ventilator 11/27/19 08:00 30 11/27/19 08:00 50 11/27/19 08:00 97.9 44 16 208/118 (148) 92 11/27/19 07:33 16 Mechanical Ventilator 30 11/27/19 07:30 57 16 155/82 (106) 99 11/27/19 07:30 68 16 30 11/27/19 07:00 16 Mechanical Ventilator 30 11/27/19 07:00 57 16 139/79 (99) 98 3/24/20 06:30 61 16 150/85 (106) 98 11/27/19 06:30 72 20 11/27/19 06:00 62 16 174/95 (121) 100 11/27/19 06:00 16 Mechanical Ventilator 30 11/27/19 05:30 55 16 158/89 (112) 98 11/27/19 05:20 65 16 30 11/27/19 05:12 159/92 11/27/19 05:00 16 Mechanical Ventilator 30 11/27/19 05:00 55 16 155/80 (105) 98 11/27/19 04:30 60 16 159/92 (114) 98 11/27/19 04:00 98.7 64 16 159/90 (113) 98 11/27/19 04:00 16 Mechanical Ventilator 30 11/27/19 04:00 30 11/27/19 04:00 57 11/27/19 04:00 Mechanical Ventilator Mechanical Ventilator Mechanical Ventilator Mechanical Ventilator Mechanical Ventilator 11/27/19 03:30 62 16 169/87 (114) 98 11/27/19 03:25 59 16 176/103 (127) 100 11/27/19 03:18 64 18 186/108 (134) 100 11/27/19 03:15 60 16 173/104 (127) 100 11/27/19 03:08 58 16 30 11/27/19 03:07 99.8 11/27/19 03:04 59 16 180/99 (126) 100 11/27/19 03:00 61 16 174/101 (125) 100 11/27/19 03:00 16 Mechanical Ventilator 30 11/27/19 02:54 63 16 184/94 (124) 100 11/27/19 02:37 16 Mechanical Ventilator 30 11/27/19 02:36 16 Mechanical Ventilator 30 11/27/19 02:30 57 16 178/101 (126) 100 11/27/19 02:15 57 16 165/101 (122) 100 11/27/19 02:00 16 Mechanical Ventilator 30 11/27/19 02:00 57 16 165/98 (120) 100 11/27/19 01:45 57 16 170/104 (126) 100 11/27/19 01:30 57 16 152/92 (112) 100 11/27/19 01:15 60 16 160/111 (127) 100 11/27/19 01:15 68 16 30 11/27/19 01:00 64 16 165/92 (116) 100 11/27/19 01:00 16 Mechanical Ventilator 30 11/27/19 00:45 63 16 159/98 (118) 100 11/27/19 00:30 67 16 154/95 (114) 100 11/27/19 00:22 70 16 173/119 (137) 100 11/27/19 00:15 69 16 172/105 (127) 100 11/27/19 00:03 99.8 73 16 174/107 (129) 100 11/27/19 00:00 30 11/27/19 00:00 Mechanical Ventilator Mechanical Ventilator Mechanical Ventilator Mechanical Ventilator Mechanical Ventilator 11/27/19 00:00 72 11/27/19 00:00 16 Mechanical Ventilator 30 11/26/19 23:45 77 16 175/109 (131) 95 11/26/19 23:45 99.8 11/26/19 23:43 78 16 167/96 (119) 97 11/26/19 23:15 178/103 11/26/19 23:15 77 16 180/109 (132) 97 11/26/19 23:07 77 16 178/103 (128) 98 11/26/19 23:00 16 Mechanical Ventilator 30 11/26/19 23:00 73 16 182/100 (127) 100 11/26/19 22:56 74 18 30 11/26/19 22:45 69 16 171/103 (125) 98 11/26/19 22:30 69 16 171/103 (125) 99 11/26/19 22:20 72 16 159/110 (126) 97 11/26/19 22:15 69 16 167/101 (123) 98 11/26/19 22:00 16 Mechanical Ventilator 30 11/26/19 22:00 68 16 153/98 (116) 98 11/26/19 21:45 72 16 167/103 (124) 97 11/26/19 21:30 77 16 164/89 (114) 98 11/26/19 21:25 83 16 30 11/26/19 21:15 84 15 166/95 (118) 96 11/26/19 21:11 84 16 170/94 (119) 97 11/26/19 21:00 16 Mechanical Ventilator 30 11/26/19 21:00 80 16 161/105 (123) 97 11/26/19 20:14 94 158/98 11/26/19 20:00 72 11/26/19 20:00 30 11/26/19 20:00 99.8 85 22 158/98 (118) 96 11/26/19 20:00 Mechanical Ventilator Mechanical Ventilator Mechanical Ventilator Mechanical Ventilator Mechanical Ventilator 11/26/19 19:27 72 16 30 11/26/19 19:00 72 16 146/89 (108) 97 11/26/19 18:03 154/97 11/26/19 18:00 73 16 154/97 (116) 100 11/26/19 17:00 71 14 143/94 (110) 96 11/26/19 16:50 69 16 30 11/26/19 16:20 30 11/26/19 16:00 107 11/26/19 16:00 99.1 100 20 145/85 (105) 100 11/26/19 16:00 100 11/26/19 16:00 Mechanical Ventilator Mechanical Ventilator Mechanical Ventilator Mechanical Ventilator Mechanical Ventilator 11/26/19 15:30 117 16 30 11/26/19 15:27 109 22 157/87 (110) 100 11/26/19 15:00 99 16 181/112 (135) 96 11/26/19 15:00 100 11/26/19 14:55 127 19 95 11/26/19 14:50 97 24 72 11/26/19 14:45 106 26 83 11/26/19 14:40 93 26 60 11/26/19 14:38 108 25 74 11/26/19 14:37 97 24 77 11/26/19 14:36 92 23 75 11/26/19 14:35 100 11/26/19 14:35 93 24 77 11/26/19 14:34 97 24 85 11/26/19 14:30 Mechanical Ventilator 100 11/26/19 14:00 74 22 154/92 (112) 99 11/26/19 13:03 71 16 30 11/26/19 13:00 71 18 143/100 (114) 97 Intake and Output 11/26/19 11/27/19 19:00 07:00 Intake Total 1720.820 ml 1850.106 ml Output Total 1895 ml 1170 ml Balance -174.180 ml 680.106 ml Free Water 50 ml 200 ml IV Total 1230.820 ml 1110.106 ml Tube Feeding 440 ml 480 ml Other 60 ml Output Urine Total 1895 ml 1170 ml Laboratory Tests 11/26/19 16:01: Arterial Blood pH 7.379, Arterial Blood Partial Pressure CO2 39.6, Arterial Blood Partial Pressure O2 353.7H, Arterial Blood HCO3 22.8, Arterial Blood Oxygen Saturation 98.5, Arterial Blood Base Excess -2.1L, Shade Test Positive 11/27/19 04:15: White Blood Count 14.3H, Red Blood Count 2.65L, Hemoglobin 7.9L, Hematocrit 23.8L, Mean Corpuscular Volume 90, Mean Corpuscular Hemoglobin 29.7, Mean Corpuscular Hemoglobin Concent 33.0, Red Cell Distribution Width 18.0H, Platelet Count 361, Mean Platelet Volume 4.4L, Neutrophils (%) (Auto) , Lymphocytes (%) (Auto) , Monocytes (%) (Auto) , Eosinophils (%) (Auto) , Basophils (%) (Auto) , Activated Partial Thromboplast Time 80H, Sodium Level 140 , Potassium Level 3.6, Chloride Level 105, Carbon Dioxide Level 24, Anion Gap 11 , Blood Urea Nitrogen 44H, Creatinine 4.8H, Estimat Glomerular Filtration Rate 14.2, Glucose Level 101, Uric Acid 8.5H, Calcium Level 8.7, Phosphorus Level 2.9 , Magnesium Level 1.9, Total Bilirubin 0.3, Aspartate Amino Transf (AST/SGOT) 11L, Alanine Aminotransferase (ALT/SGPT) 12, Alkaline Phosphatase 55, C- Reactive Protein, Quantitative 6.5H, Pro-B-Type Natriuretic Peptide > [id number], Total Protein 6.6, Albumin 2.0L, Globulin 4.6, Albumin/Globulin Ratio 0.4L Height (Feet): 5 Height (Inches): 10.00 Weight (Pounds): 205 General Appearance: no apparent distress EENT: other - Remains intubated on ventilator Cardiovascular: normal rate Respiratory/Chest: decreased breath sounds Extremities: other - Edematous Objective No change Reynold Ellison MD Nov 27, 2019 12:43
--- NOTE | 2019-11-27 13:00 | NUR ---
NURSE NOTES: Dr. Zaidi assessed patient at the bedside and updated on patient progress, patient remains on heparin drip with 22.426ml/hr at 12units/kg/hr. next dose for ptt is at 0400 on 11/28/19. no verbal orders given.
[2019-11-27] MEDS: Nitroglycerin Patch 0.4mg TDERMAL SCH (13:02)
--- NOTE | 2019-11-27 13:46 | Diagnostic Imaging Report ---
Indication: Abdominal pain Comparison: 11/23/2019 Single view of the abdomen obtained Findings: NG tube is present. The tip and proximal port are both within the stomach lumen. IMPRESSION: NG tube in good position
--- NOTE | 2019-11-27 14:55 | NUR ---
NURSE NOTES: new Fentanyl drip started and remains at 14ml/hr at 140mcg/hr. patient has a rass of -2 and is sedated and relaxed,
--- NOTE | 2019-11-27 16:04 | Infectious Diseases Prog Note ---
Assessment/Plan Assessment/Plan ASSESSMENT: This is an 83-year-old male. Afebrile Nl WBC Doubt Pneum (at this time) - Respiratory failure: m/l 2/2 CHF, elevated BNP) - Sp Cx GNR Probable UTI - UCX : GNR GPC Bacteremia - BCx 11/21/19 Staph warneri 2/2 sets - BCx 11/22/19 - NGTD - 2D Echo : No Veg Congestive heart failure. Atrial fibrillation. Altered mental status. Urinary tract infection. Renal failure. Hypertension. Alzheimer's dementia. BPH P: cont IV Vanco # 6 Cont pt on IV Merrem # 4 11/23 Sp Rocephin # 4 Monitor CBC, CMP Monitor Cx ( B, U, Sp ) Monitor CXR Rsp support Chest CT Bl cx Rpt Subjective Allergies: Coded Allergies: LISINOPRIL (Verified Allergy, Unknown, 11/21/19) SIMVASTATIN (Verified Allergy, Unknown, 11/21/19) TERAZOSIN (Verified Allergy, Unknown, 11/21/19) Subjective on vent Objective Vital Signs Last 24 Hour Vital Signs Date Time Temp Pulse Resp B/P (MAP) Pulse Ox O2 Delivery O2 Flow Rate FiO2 11/27/19 14:58 17 Mechanical Ventilator 30 11/27/19 13:20 69 16 30 11/27/19 13:02 67 126/76 11/27/19 13:02 126/76 11/27/19 13:00 16 Mechanical Ventilator 30 11/27/19 13:00 66 16 129/92 (104) 99 11/27/19 12:30 66 16 126/76 (93) 99 11/27/19 12:00 97.8 75 16 142/91 (108) 98 11/27/19 12:00 84 11/27/19 12:00 Mechanical Ventilator Mechanical Ventilator Mechanical Ventilator 11/27/19 12:00 30 11/27/19 12:00 16 Mechanical Ventilator 30 11/27/19 11:30 77 16 156/90 (112) 97 11/27/19 11:28 89 16 30 11/27/19 11:00 16 Mechanical Ventilator 30 11/27/19 11:00 89 16 173/90 (117) 97 11/27/19 10:30 84 16 163/92 (115) 97 11/27/19 10:27 86 149/88 11/27/19 10:00 80 16 149/88 (108) 97 11/27/19 10:00 16 Mechanical Ventilator 30 11/27/19 09:30 76 16 163/87 (112) 96 11/27/19 09:05 16 Mechanical Ventilator 30 11/27/19 09:00 16 Mechanical Ventilator 30 11/27/19 09:00 78 16 176/100 (125) 96 11/27/19 08:55 16 Mechanical Ventilator 30 11/27/19 08:54 76 16 30 11/27/19 08:50 16 Mechanical Ventilator 30 11/27/19 08:30 76 16 177/114 (135) 96 11/27/19 08:00 Mechanical Ventilator Mechanical Ventilator Mechanical Ventilator 11/27/19 08:00 16 Mechanical Ventilator 30 11/27/19 08:00 30 11/27/19 08:00 50 11/27/19 08:00 97.9 44 16 208/118 (148) 92 11/27/19 07:33 16 Mechanical Ventilator 30 11/27/19 07:30 57 16 155/82 (106) 99 11/27/19 07:30 68 16 30 11/27/19 07:00 16 Mechanical Ventilator 30 11/27/19 07:00 57 16 139/79 (99) 98 11/27/19 06:30 61 16 150/85 (106) 98 11/27/19 06:30 72 20 11/27/19 06:00 62 16 174/95 (121) 100 11/27/19 06:00 16 Mechanical Ventilator 30 11/27/19 05:30 55 16 158/89 (112) 98 11/27/19 05:20 65 16 30 11/27/19 05:12 159/92 11/27/19 05:00 16 Mechanical Ventilator 30 11/27/19 05:00 55 16 155/80 (105) 98 11/27/19 04:30 60 16 159/92 (114) 98 11/27/19 04:00 98.7 64 16 159/90 (113) 98 11/27/19 04:00 16 Mechanical Ventilator 30 11/27/19 04:00 30 11/27/19 04:00 57 11/27/19 04:00 Mechanical Ventilator Mechanical Ventilator Mechanical Ventilator Mechanical Ventilator Mechanical Ventilator 11/27/19 03:30 62 16 169/87 (114) 98 11/27/19 03:25 59 16 176/103 (127) 100 11/27/19 03:18 64 18 186/108 (134) 100 11/27/19 03:15 60 16 173/104 (127) 100 11/27/19 03:08 58 16 30 11/27/19 03:07 99.8 11/27/19 03:04 59 16 180/99 (126) 100 11/27/19 03:00 61 16 174/101 (125) 100 11/27/19 03:00 16 Mechanical Ventilator 30 11/27/19 02:54 63 16 184/94 (124) 100 11/27/19 02:37 16 Mechanical Ventilator 30 11/27/19 02:36 16 Mechanical Ventilator 30 11/27/19 02:30 57 16 178/101 (126) 100 11/27/19 02:15 57 16 165/101 (122) 100 11/27/19 02:00 16 Mechanical Ventilator 30 11/27/19 02:00 57 16 165/98 (120) 100 11/27/19 01:45 57 16 170/104 (126) 100 11/27/19 01:30 57 16 152/92 (112) 100 11/27/19 01:15 60 16 160/111 (127) 100 11/27/19 01:15 68 16 30 11/27/19 01:00 64 16 165/92 (116) 100 11/27/19 01:00 16 Mechanical Ventilator 30 11/27/19 00:45 63 16 159/98 (118) 100 11/27/19 00:30 67 16 154/95 (114) 100 11/27/19 00:22 70 16 173/119 (137) 100 11/27/19 00:15 69 16 172/105 (127) 100 11/27/19 00:03 99.8 73 16 174/107 (129) 100 11/27/19 00:00 30 11/27/19 00:00 Mechanical Ventilator Mechanical Ventilator Mechanical Ventilator Mechanical Ventilator Mechanical Ventilator 11/27/19 00:00 72 11/27/19 00:00 16 Mechanical Ventilator 30 11/26/19 23:45 77 16 175/109 (131) 95 11/26/19 23:45 99.8 11/26/19 23:43 78 16 167/96 (119) 97 11/26/19 23:15 178/103 11/26/19 23:15 77 16 180/109 (132) 97 11/26/19 23:07 77 16 178/103 (128) 98 11/26/19 23:00 16 Mechanical Ventilator 30 11/26/19 23:00 73 16 182/100 (127) 100 11/26/19 22:56 74 18 30 11/26/19 22:45 69 16 171/103 (125) 98 11/26/19 22:30 69 16 171/103 (125) 99 11/26/19 22:20 72 16 159/110 (126) 97 11/26/19 22:15 69 16 167/101 (123) 98 11/26/19 22:00 16 Mechanical Ventilator 30 11/26/19 22:00 68 16 153/98 (116) 98 11/26/19 21:45 72 16 167/103 (124) 97 11/26/19 21:30 77 16 164/89 (114) 98 11/26/19 21:25 83 16 30 11/26/19 21:15 84 15 166/95 (118) 96 11/26/19 21:11 84 16 170/94 (119) 97 11/26/19 21:00 16 Mechanical Ventilator 30 11/26/19 21:00 80 16 161/105 (123) 97 11/26/19 20:14 94 158/98 11/26/19 20:00 72 11/26/19 20:00 30 11/26/19 20:00 99.8 85 22 158/98 (118) 96 11/26/19 20:00 Mechanical Ventilator Mechanical Ventilator Mechanical Ventilator Mechanical Ventilator Mechanical Ventilator 11/26/19 19:27 72 16 30 11/26/19 19:00 72 16 146/89 (108) 97 11/26/19 18:03 154/97 11/26/19 18:00 73 16 154/97 (116) 100 11/26/19 17:00 71 14 143/94 (110) 96 11/26/19 16:50 69 16 30 11/26/19 16:20 30 Height (Feet): 5 Height (Inches): 10.00 Weight (Pounds): 205 HEENT: atraumatic Respiratory/Chest: no accessory muscle use Cardiovascular: regularly irregular Abdomen: no organomegaly Laboratory Tests Test 11/27/19 04:15 White Blood Count 14.3 K/UL (4.8-10.8) H Red Blood Count 2.65 M/UL (4.70-6.10) L Hemoglobin 7.9 G/DL (14.2-18.0) L Hematocrit 23.8 % (42.0-52.0) L Mean Corpuscular Volume 90 FL (80-99) Mean Corpuscular Hemoglobin 29.7 PG (27.0-31.0) Mean Corpuscular Hemoglobin Concent 33.0 G/DL (32.0-36.0) Red Cell Distribution Width 18.0 % (11.6-14.8) H Platelet Count 361 K/UL (150-450) Mean Platelet Volume 4.4 FL (6.5-10.1) L Neutrophils (%) (Auto) % (45.0-75.0) Lymphocytes (%) (Auto) % (20.0-45.0) Monocytes (%) (Auto) % (1.0-10.0) Eosinophils (%) (Auto) % (0.0-3.0) Basophils (%) (Auto) % (0.0-2.0) Activated Partial Thromboplast Time 80 SEC (23-33) H Sodium Level 140 MMOL/L (136-145) Potassium Level 3.6 MMOL/L (3.5-5.1) Chloride Level 105 MMOL/L (98-107) Carbon Dioxide Level 24 MMOL/L (21-32) Anion Gap 11 mmol/L (5-15) Blood Urea Nitrogen 44 mg/dL (7-18) H Creatinine 4.8 MG/DL (0.55-1.30) H Estimat Glomerular Filtration Rate 14.2 mL/min (>60) Glucose Level 101 MG/DL (74-106) Uric Acid 8.5 MG/DL (2.6-7.2) H Calcium Level 8.7 MG/DL (8.5-10.1) Phosphorus Level 2.9 MG/DL (2.5-4.9) Magnesium Level 1.9 MG/DL (1.8-2.4) Total Bilirubin 0.3 MG/DL (0.2-1.0) Aspartate Amino Transf (AST/SGOT) 11 U/L (15-37) L Alanine Aminotransferase (ALT/SGPT) 12 U/L (12-78) Alkaline Phosphatase 55 U/L (46-116) C-Reactive Protein, Quantitative 6.5 mg/dL (0.00-0.90) H Pro-B-Type Natriuretic Peptide > 99946 pg/mL (0-125) H Total Protein 6.6 G/DL (6.4-8.2) Albumin 2.0 G/DL (3.4-5.0) L Globulin 4.6 g/dL Albumin/Globulin Ratio 0.4 (1.0-2.7) L Current Medications Medications (Trade) Dose Ordered Sig/Cyndi Route PRN Reason Start Time Stop Time Status Last Admin Dose Admin Acetaminophen (Tylenol) 650 mg Q4H PRN NG Fever 11/21/19 13:00 12/21/19 08:14 11/26/19 23:15 Albuterol/ Ipratropium (Albuterol/ Ipratropium) 3 ml Q4H PRN HHN Shortness of Breath 11/24/19 10:11 11/29/19 10:10 Amlodipine Besylate (Norvasc) 2.5 mg DAILY NG 11/27/19 12:45 12/27/19 12:44 11/27/19 13:02 Aspirin (ASA) 81 mg DAILY NG 11/23/19 09:00 01/07/20 08:59 11/27/19 10:27 Dextrose (Dextrose 50%) 25 ml Q30M PRN IV Hypoglycemia 11/21/19 08:15 02/19/20 08:14 Dextrose (Dextrose 50%) 50 ml Q30M PRN IV Hypoglycemia 11/21/19 08:15 02/19/20 08:14 Docusate Sodium (Colace) 100 mg THREE TIMES A DAY NG 11/21/19 13:00 12/21/19 12:59 11/27/19 13:01 Fentanyl Citrate 1000 mcg/Sodium Chloride 100 ml @ 0 mls/hr Q24H IV 11/26/19 21:00 12/03/19 20:59 11/27/19 14:58 Heparin Sodium/ Dextrose 500 ml @ 22.426 mls/ hr ADJUST PER PROTOCOL IV 11/24/19 05:45 12/24/19 05:44 11/27/19 00:21 Hydralazine HCl (Apresoline) 25 mg Q6HR NG 11/27/19 18:00 6/21/20 11:59 Lorazepam (Ativan 2mg/ml 1ml) 2 mg Q4H PRN IV For Anxiety 11/21/19 08:15 11/28/19 08:14 11/27/19 00:20 Meropenem 500 mg/ Sodium Chloride 55 ml @ 110 mls/hr Q12HR IVPB 11/25/19 14:00 11/30/19 13:59 11/27/19 10:27 Metolazone (Zaroxolyn) 10 mg DAILY NG 11/27/19 14:00 12/27/19 13:59 11/27/19 14:57 Metoprolol Tartrate (Lopressor) 50 mg Q12HR NG 11/22/19 21:00 02/19/20 20:59 11/27/19 10:27 Morphine Sulfate (Morphine Sulfate) 4 mg Q4H PRN IVP For Pain 11/21/19 08:15 11/28/19 08:14 11/25/19 22:45 Nitroglycerin (Ntg) 1 patch Q24H TDERMAL 11/22/19 11:00 12/22/19 10:59 11/27/19 13:02 Ondansetron HCl (Zofran) 4 mg Q6H PRN IVP Nausea & Vomiting 11/21/19 08:15 12/21/19 08:14 Pantoprazole (Protonix) 40 mg Q12HR IV 11/21/19 21:00 12/21/19 09:38 11/27/19 10:28 Polyethylene Glycol (Miralax) 17 gm DAILYPRN PRN NG Constipation 11/21/19 13:00 12/21/19 08:14 Temazepam (Restoril) 15 mg HSPRN PRN NG Insomnia 11/21/19 13:00 11/28/19 08:14 Vancomycin HCl (Vanco rx to dose) 1 ea DAILY PRN MISC Per rx protocol 11/22/19 14:45 12/22/19 14:44 Mike Hicks MD Nov 27, 2019 16:04
--- NOTE | 2019-11-27 16:18 | Internal Med Progress Note ---
Subjective Date of Service: Nov 27, 2019 Physician Name Abisai Zamarripa Attending Physician Claude Garza MD Current Medications Medications (Trade) Dose Ordered Sig/Cyndi Route PRN Reason Start Time Stop Time Status Last Admin Dose Admin Acetaminophen (Tylenol) 650 mg Q4H PRN NG Fever 11/21/19 13:00 12/21/19 08:14 11/26/19 23:15 Albuterol/ Ipratropium (Albuterol/ Ipratropium) 3 ml Q4H PRN HHN Shortness of Breath 11/24/19 10:11 11/29/19 10:10 Amlodipine Besylate (Norvasc) 2.5 mg DAILY NG 11/27/19 12:45 12/27/19 12:44 11/27/19 13:02 Aspirin (ASA) 81 mg DAILY NG 11/23/19 09:00 01/07/20 08:59 11/27/19 10:27 Dextrose (Dextrose 50%) 25 ml Q30M PRN IV Hypoglycemia 11/21/19 08:15 02/19/20 08:14 Dextrose (Dextrose 50%) 50 ml Q30M PRN IV Hypoglycemia 11/21/19 08:15 02/19/20 08:14 Docusate Sodium (Colace) 100 mg THREE TIMES A DAY NG 11/21/19 13:00 12/21/19 12:59 11/27/19 13:01 Fentanyl Citrate 1000 mcg/Sodium Chloride 100 ml @ 0 mls/hr Q24H IV 11/26/19 21:00 12/03/19 20:59 11/27/19 14:58 Heparin Sodium/ Dextrose 500 ml @ 22.426 mls/ hr ADJUST PER PROTOCOL IV 11/24/19 05:45 12/24/19 05:44 11/27/19 00:21 Hydralazine HCl (Apresoline) 25 mg Q6HR NG 11/27/19 18:00 02/24/20 11:59 Lorazepam (Ativan 2mg/ml 1ml) 2 mg Q4H PRN IV For Anxiety 11/21/19 08:15 11/28/19 08:14 11/27/19 00:20 Meropenem 500 mg/ Sodium Chloride 55 ml @ 110 mls/hr Q12HR IVPB 11/25/19 14:00 11/30/19 13:59 11/27/19 10:27 Metolazone (Zaroxolyn) 10 mg DAILY NG 11/27/19 14:00 12/27/19 13:59 11/27/19 14:57 Metoprolol Tartrate (Lopressor) 50 mg Q12HR NG 11/22/19 21:00 02/19/20 20:59 11/27/19 10:27 Morphine Sulfate (Morphine Sulfate) 4 mg Q4H PRN IVP For Pain 11/21/19 08:15 11/28/19 08:14 11/25/19 22:45 Nitroglycerin (Ntg) 1 patch Q24H TDERMAL 11/22/19 11:00 12/22/19 10:59 11/27/19 13:02 Ondansetron HCl (Zofran) 4 mg Q6H PRN IVP Nausea & Vomiting 11/21/19 08:15 12/21/19 08:14 Pantoprazole (Protonix) 40 mg Q12HR IV 11/21/19 21:00 12/21/19 09:38 11/27/19 10:28 Polyethylene Glycol (Miralax) 17 gm DAILYPRN PRN NG Constipation 11/21/19 13:00 12/21/19 08:14 Temazepam (Restoril) 15 mg HSPRN PRN NG Insomnia 11/21/19 13:00 11/28/19 08:14 Vancomycin HCl (Vanco rx to dose) 1 ea DAILY PRN MISC Per rx protocol 11/22/19 14:45 12/22/19 14:44 Allergies: Coded Allergies: LISINOPRIL (Verified Allergy, Unknown, 11/21/19) SIMVASTATIN (Verified Allergy, Unknown, 11/21/19) TERAZOSIN (Verified Allergy, Unknown, 11/21/19) ROS Limited/Unobtainable: Yes Subjective 83 YO M admitted with respiratory failure. Now pneumonia, UTI and sepsis. Cover for Int Med-DR Garza. Intubated and sedated. ICU Objective Last Vital Signs Date Time Temp Pulse Resp B/P (MAP) Pulse Ox O2 Delivery O2 Flow Rate FiO2 11/27/19 14:58 17 Mechanical Ventilator 30 11/27/19 13:20 69 11/27/19 13:02 126/76 11/27/19 13:00 99 11/27/19 12:00 97.8 Laboratory Tests Test 11/27/19 04:15 White Blood Count 14.3 K/UL (4.8-10.8) H Red Blood Count 2.65 M/UL (4.70-6.10) L Hemoglobin 7.9 G/DL (14.2-18.0) L Hematocrit 23.8 % (42.0-52.0) L Mean Corpuscular Volume 90 FL (80-99) Mean Corpuscular Hemoglobin 29.7 PG (27.0-31.0) Mean Corpuscular Hemoglobin Concent 33.0 G/DL (32.0-36.0) Red Cell Distribution Width 18.0 % (11.6-14.8) H Platelet Count 361 K/UL (150-450) Mean Platelet Volume 4.4 FL (6.5-10.1) L Neutrophils (%) (Auto) % (45.0-75.0) Lymphocytes (%) (Auto) % (20.0-45.0) Monocytes (%) (Auto) % (1.0-10.0) Eosinophils (%) (Auto) % (0.0-3.0) Basophils (%) (Auto) % (0.0-2.0) Activated Partial Thromboplast Time 80 SEC (23-33) H Sodium Level 140 MMOL/L (136-145) Potassium Level 3.6 MMOL/L (3.5-5.1) Chloride Level 105 MMOL/L (98-107) Carbon Dioxide Level 24 MMOL/L (21-32) Anion Gap 11 mmol/L (5-15) Blood Urea Nitrogen 44 mg/dL (7-18) H Creatinine 4.8 MG/DL (0.55-1.30) H Estimat Glomerular Filtration Rate 14.2 mL/min (>60) Glucose Level 101 MG/DL (74-106) Uric Acid 8.5 MG/DL (2.6-7.2) H Calcium Level 8.7 MG/DL (8.5-10.1) Phosphorus Level 2.9 MG/DL (2.5-4.9) Magnesium Level 1.9 MG/DL (1.8-2.4) Total Bilirubin 0.3 MG/DL (0.2-1.0) Aspartate Amino Transf (AST/SGOT) 11 U/L (15-37) L Alanine Aminotransferase (ALT/SGPT) 12 U/L (12-78) Alkaline Phosphatase 55 U/L (46-116) C-Reactive Protein, Quantitative 6.5 mg/dL (0.00-0.90) H Pro-B-Type Natriuretic Peptide > 28560 pg/mL (0-125) H Total Protein 6.6 G/DL (6.4-8.2) Albumin 2.0 G/DL (3.4-5.0) L Globulin 4.6 g/dL Albumin/Globulin Ratio 0.4 (1.0-2.7) L Intake and Output 11/26/19 11/27/19 19:00 07:00 Intake Total 1720.820 ml 1850.106 ml Output Total 1895 ml 1170 ml Balance -174.180 ml 680.106 ml Free Water 50 ml 200 ml IV Total 1230.820 ml 1110.106 ml Tube Feeding 440 ml 480 ml Other 60 ml Output Urine Total 1895 ml 1170 ml Objective PHYSICAL EXAMINATION: GENERAL: The patient is well-developed, well-nourished male, who is intubated and sedated in the intensive care unit. HEENT: Eyes, pupils are equal and responsive to light and accommodation. Extraocular movements are intact. NECK: Supple without lymphadenopathy. CHEST: Mech vent; Bilateral expiratory air sounds, otherwise clear to auscultation without rales. CARDIOVASCULAR: Regular rhythm and rate. S1 and S2 normal without murmurs, rubs, or gallops. ABDOMEN: Soft, nontender, and nondistended. Positive bowel sounds. No evidence of hepatosplenomegaly. Currently, no rebound or guarding noted. EXTREMITIES: Negative for clubbing, cyanosis, or edema. RECTAL/GENITAL: Not performed. NEUROLOGIC: Cranial nerves II through XII are grossly intact without focal deficits. Motor strength is 5/5 bilaterally. Deep tendon reflexes are 2+ plantar. Assessment/Plan Assessment/Plan ASSESSMENT: This is an 83-year-old male. 1. Respiratory failure. 2. Congestive heart failure. 3. Atrial fibrillation. 4. Altered mental status. 5. Urinary tract infection. 6. Renal failure. 7. Hypertension. 8. Alzheimer's dementia. 9. Benign prostatic hypertrophy. 10. urinary tract infection-ESBL E. Coli and pseudamonas aeruginosa. 11. Sepsis-Staph Warneri 12. pneumonia=pseudamonas aeruginosa TREATMENT: 1. Congestive heart failure. A Cardiology consultation has been obtained with Dr. Vasu Zaidi. We will follow recommendations of Cardiology. The patient is currently receiving intravenous Lasix. 2. Respiratory failure. A Pulmonary consultation has been obtained with Dr. Susannah Hightower. The patient is currently intubated in the intensive care unit. We will follow recommendations of Pulmonary. ABX=meropenem per ID= Dr Hicks 3. Atrial fibrillation as above. A Cardiology consultation has been obtained with Dr. Vasu Zaidi. 4. Renal failure. A Nephrology consultation has been obtained with Dr. Ellison. We will follow recommendations of Nephrology. 5. Hypertension. The patient is currently hypotensive in the intensive care unit. 6. Alzheimer's dementia. 7. Benign prostatic hypertrophy. 8. ABX = meropenem per ID Abisai Zamarripa MD Nov 27, 2019 16:18
[2019-11-27] MEDS ORDERED: Heparin1,000 units/500ml Premix(Conc:2 units/ml) IV PRN (16:30)
[2019-11-27] MEDS ORDERED: Lidocaine 1% Plain 30 ml INJ PRN (16:30)
--- NOTE | 2019-11-27 16:35 | NUR ---
NURSE NOTES: Dr. Zamarripa at the bedside assessing patient. new IV placement on the right Hand 20G, left hand 20 and left wrist 20g. all IV are patent with blood return present. fentanyl is running through right hand, heparin drip is infusing through left hand. patient remains at 14ml/hr of fentanyl at 140mcg/hr.
--- NOTE | 2019-11-27 17:55 | NUR ---
NURSE NOTES: patient remains on restraints on bilateral wrist, no skin tears noted round the wrist. hands are warm and pink to the touch, peripheral pulses present distally patient remain Jevity at 40mll/hr running through OG -tube.
[2019-11-27] MEDS: HydrALAZINE 25mg tab NG SCH ×2 (17:59→23:20)
--- NOTE | 2019-11-27 19:15 | NUR ---
HAND-OFF: Report given to SYED Spence.
--- NOTE | 2019-11-27 19:20 | NUR ---
NURSE NOTES: Received patient from SYED Hall. Will continue plan of care.
--- NOTE | 2019-11-27 20:00 | NUR ---
NURSE NOTES: Patient is intubated; ETT 7.5 @ 24cm to the lipline to vent setting of AC:16, TV:550. FiO2:30%, O2:100%. Jevity running via OGT at 40ml/hr. Patiño is intact and draining. Right hand 20g running Fentanyl @ 140mcgs. Left hand 20g running Heparin @ 12units. Patient has bilateral soft wrist restraints for safety to prevent from pulling. Patient self extubated himself yesterday 11/25. Skin assessed, ROM done. Safety measures in place; bed low, locked and alarm is on. Will continue plan of care.
[2019-11-27] MEDS: Dyna-Hex 2% Top Sol 2oz TOPIC SCH (20:32)
--- NOTE | 2019-11-27 22:00 | NUR ---
NURSE NOTES: Patient remains on Fentanyl at 140mcgs. -2 light sedation. Opens eyes to voice. Current BP:124/83, HR:73, O2:100%. Safety measures in place.
[2019-11-28] VITALS (30 sets, daily range): BP systolic 88–159; BP diastolic 57–101
--- NOTE | 2019-11-28 03:00 | NUR ---
NURSE NOTES: Patient is resting comfortably. -2 light sedation, opens eyes to stimuli. Continues to run Fentanyl @ 150mcgs.Current BP:129/87, HR:80, O2:98%. Will continue to monitor.
--- NOTE | 2019-11-28 04:00 | NUR ---
NURSE NOTES: Bed bath given, linens changed, oral care and suctioning done. Turned and repositioned. Will continue to monitor.
[2019-11-28 05:13] LABS: HEMATOCRIT 21.8 % (42.0-52.0); HEMOGLOBIN 7.1 G/DL (14.2-18.0); MEAN CORPUSCULAR VOLUME 91 FL (80-99); PLATELET COUNT 338 K/UL (150-450); RED BLOOD COUNT 2.41 M/UL (4.70-6.10); RED CELL DISTRIBUTION WIDTH 17.9 % (11.6-14.8)
[2019-11-28 05:30] LABS: ALANINE AMINOTRANSFERASE 9 U/L (12-78); ALBUMIN/GLOBULIN RATIO 0.5 (1.0-2.7); ALKALINE PHOSPHATASE 55 U/L (46-116); ANION GAP 8 mmol/L (5-15); ASPARTATE AMINO TRANSFERASE 12 U/L (15-37); BILIRUBIN,TOTAL 0.2 MG/DL (0.2-1.0); BLOOD UREA NITROGEN 61 mg/dL (7-18); CALCIUM 8.7 MG/DL (8.5-10.1); CARBON DIOXIDE 27 MMOL/L (21-32); CHLORIDE 104 MMOL/L (98-107); CREATININE 4.8 MG/DL (0.55-1.30); PHOSPHORUS 3.8 MG/DL (2.5-4.9); POTASSIUM 4.1 MMOL/L (3.5-5.1); SODIUM 139 MMOL/L (136-145)
[2019-11-28] MEDS: HydrALAZINE 25mg tab NG SCH (05:39)
--- NOTE | 2019-11-28 06:00 | NUR ---
NURSE NOTES: PTT resulted in 74. Confirmed with Lacey @ [employer] that there is no changes in the Heparin drip; will continue to run at 12units/kg/hr. Timed PTT ordered for tomorrow AM 11/28 @0400.
--- NOTE | 2019-11-28 07:15 | NUR ---
HAND-OFF: Report given to SYED SWANSON.
--- NOTE | 2019-11-28 07:16 | NUR ---
NURSE NOTES: Late entry: PT and report received from SYED Spence; PT received sedated on fentanyl RASS -2 light sedation, opeens eyes to stimuli and name; PT sclera yellow; alarm security or surveillance monitor shows a-fib controlled HR 97-104; received intubated ETT 7.5 @ 24 R-lip, AC 16, TV 550, 30%, peep 0 saturating at 94% lung sounds greatly diminished on auscultation; OGT feeding jevity @ 40cc/hr no residual noted; last reported BM 11/28/2019; mcmanus patent draining at lowest position; skin issues noted on L-buttox DTI / s2; PIV R-hand 20g infusing fentanyl @ 140mcg/hr; L-hand 20g heparin infusing at 12u / hr; L-wrist 22g TKO; PT has orders by MD Marilou for "PICC line needed urgently for IV access," orders placed; received with SCD BLE, received with bilateral soft wrist restraint no injury or bruising, PT has BUE 2-3+ pitting edema and generalized edema. Will continue to monitor PT.
[2019-11-28] MEDS: Pantoprazole Inj IV SCH ×2 (08:37→20:26)
[2019-11-28] MEDS: Docusate 100mg/10ml Liq NG SCH ×3 (08:38→18:00)
[2019-11-28] MEDS: Aspirin Baby 81mg NG SCH (08:39)
[2019-11-28] MEDS: Meropenem 500 MG in NS 55 ML IVPB SCH ×2 (08:39→20:35)
[2019-11-28] MEDS: Metoprolol Tartrate 50mg tab NG SCH ×2 (08:39→20:27)
--- NOTE | 2019-11-28 08:46 | NUR ---
Pt had increased PIP and low Vt. Lavaged pt twice and pulled up copious amounts of thick secretions. Pt was turned and SYED Padgett pulled up a mucus plug. Will continue to lavage and sxn prn. Addendum: 11/28/19 at 1213 by EVA LYN RT Amended: Links added.
--- NOTE | 2019-11-28 09:38 | NUR ---
NURSE NOTES: PT had large soft BM, total linens changed, cleaned and dried PT, vent alarms showed PT wasn't getting enough volume, RT notified, suctioning and lavage given, thick yellow mucous suctioned from ETT, chest physiotherapy given while suctioning, no further S/S of respiratory distress noted. Will continue to monitor PT.
--- NOTE | 2019-11-28 10:03 | NUR ---
RADIOLOGY DEPT., CHEST X-RAY DONE.-P.DYE
--- NOTE | 2019-11-28 10:16 | NUR ---
NURSE NOTES: MD Terra made rounds, updates given that UO is very minimal, no new orders given. Will continue to monitor PT.
--- NOTE | 2019-11-28 10:30 | Diagnostic Imaging Report ---
Indication: Dyspnea Comparison: 11/26/2019 A single view chest radiograph was obtained. Findings: Pulmonary vascular congestion demonstrated with cardiomegaly and bilateral pleural effusions. Endotracheal tube and nasogastric tubes are satisfactory in position. IMPRESSION: CHF. Bilateral pleural effusions. No significant change
--- NOTE | 2019-11-28 10:53 | Pulmonolgy Critical Care Note ---
Critical Care - Asmt/Plan Problems: (1) Acute hypercapnic respiratory failure (2) Paroxysmal A-fib (3) Anemia, chronic renal failure (4) Acute on chronic renal insufficiency (5) Chronic hepatitis (6) Moderate pulmonary arterial systolic hypertension (7) Left ventricular ejection fraction greater than or equal to 40 percent (8) History of hypertension (9) Alzheimer's dementia (10) BPH (benign prostatic hyperplasia) Respiratory: monitor respiratory rate, adjust FIO2, CXR Cardiac: continue to monitor HR/BP Renal: F/U I&O, keep IV fluid Infectious Disease: check cultures Gastrointestinal: continue feedings/current rate, hold feedings Endocrine: monitor blood sugar Neurologic: PRN Ativan Prophylaxis: Protonix Disposition: keep in ICU Notes Reviewed: benefits administrator, renal, ID Discussed with: nurses Critical Care - Objective Last 24 Hour Vital Signs Date Time Temp Pulse Resp B/P (MAP) Pulse Ox O2 Delivery O2 Flow Rate FiO2 11/28/19 10:00 80 16 95/61 (72) 99 11/28/19 10:00 16 Endotracheal Tube 30 11/28/19 09:00 145 16 143/72 (95) 100 11/28/19 09:00 16 Endotracheal Tube 30 11/28/19 09:00 92 16 121/70 (87) 98 11/28/19 08:46 99 11/28/19 08:39 91 130/67 11/28/19 08:39 91 130/67 11/28/19 08:00 99.0 91 16 130/67 (88) 99 11/28/19 08:00 88 11/28/19 08:00 16 Endotracheal Tube 30 11/28/19 08:00 Mechanical Ventilator Mechanical Ventilator Mechanical Ventilator 11/28/19 08:00 30 11/28/19 07:00 98 16 135/81 (99) 99 11/28/19 07:00 16 Mechanical Ventilator 30 11/28/19 06:53 91 16 30 11/28/19 06:30 96 16 11/28/19 06:00 16 Mechanical Ventilator 30 11/28/19 06:00 93 17 150/87 (108) 98 11/28/19 05:40 16 Mechanical Ventilator 30 11/28/19 05:39 146/92 11/28/19 05:39 16 Mechanical Ventilator 30 11/28/19 05:24 96 16 30 3/25/20 05:00 16 Mechanical Ventilator 30 11/28/19 05:00 94 16 126/80 (95) 98 11/28/19 04:00 30 11/28/19 04:00 98.6 89 16 138/89 (105) 98 11/28/19 04:00 16 Mechanical Ventilator 30 11/28/19 04:00 Mechanical Ventilator Mechanical Ventilator Mechanical Ventilator 11/28/19 03:20 73 16 30 11/28/19 03:12 82 11/28/19 03:00 83 16 129/87 (101) 99 11/28/19 03:00 16 Mechanical Ventilator 30 11/28/19 02:00 84 16 135/87 (103) 99 11/28/19 02:00 16 Mechanical Ventilator 30 11/28/19 01:23 75 16 30 11/28/19 01:00 16 Mechanical Ventilator 30 11/28/19 01:00 76 16 130/76 (94) 99 11/28/19 00:00 Mechanical Ventilator Mechanical Ventilator Mechanical Ventilator 11/28/19 00:00 98.5 77 16 143/90 (107) 99 11/28/19 00:00 16 Mechanical Ventilator 30 11/28/19 00:00 30 11/27/19 23:20 141/90 11/27/19 23:10 72 16 30 11/27/19 23:08 78 11/27/19 23:00 16 Mechanical Ventilator 30 11/27/19 23:00 81 19 141/90 (107) 99 11/27/19 22:22 16 Non-Rebreather 30 11/27/19 22:00 16 Non-Rebreather 30 11/27/19 22:00 73 16 124/83 (97) 99 11/27/19 21:19 80 16 30 11/27/19 21:00 87 17 145/99 (114) 98 11/27/19 21:00 16 Mechanical Ventilator 30 11/27/19 20:33 90 142/94 11/27/19 20:00 30 11/27/19 20:00 16 Mechanical Ventilator 30 11/27/19 20:00 98.3 87 16 154/84 (107) 98 11/27/19 20:00 Mechanical Ventilator Mechanical Ventilator Mechanical Ventilator 11/27/19 19:53 89 11/27/19 19:00 16 Mechanical Ventilator 30 11/27/19 19:00 82 16 151/89 (109) 98 11/27/19 18:31 89 17 30 11/27/19 18:30 83 16 145/76 (99) 98 11/27/19 18:00 84 16 166/95 (118) 98 11/27/19 18:00 16 Mechanical Ventilator 30 11/27/19 17:59 137/81 11/27/19 17:30 84 16 137/81 (99) 98 11/27/19 17:00 16 Mechanical Ventilator 30 11/27/19 17:00 97 16 163/89 (113) 97 11/27/19 16:52 87 17 30 11/27/19 16:30 92 16 172/99 (123) 97 11/27/19 16:00 Mechanical Ventilator Mechanical Ventilator Mechanical Ventilator 11/27/19 16:00 16 Mechanical Ventilator 30 11/27/19 16:00 103 11/27/19 16:00 30 11/27/19 16:00 98.2 83 16 155/100 (118) 98 11/27/19 15:30 88 16 145/92 (109) 98 11/27/19 15:15 83 18 30 11/27/19 15:00 92 16 175/101 (125) 94 11/27/19 14:58 17 Mechanical Ventilator 30 11/27/19 14:30 79 16 162/91 (114) 98 11/27/19 14:00 16 Mechanical Ventilator 30 11/27/19 14:00 76 16 162/99 (120) 98 11/27/19 13:30 74 16 158/91 (113) 99 11/27/19 13:20 69 16 30 11/27/19 13:02 67 126/76 11/27/19 13:02 126/76 11/27/19 13:00 16 Mechanical Ventilator 30 11/27/19 13:00 66 16 129/92 (104) 99 11/27/19 12:30 66 16 126/76 (93) 99 11/27/19 12:00 97.8 75 16 142/91 (108) 98 11/27/19 12:00 84 11/27/19 12:00 Mechanical Ventilator Mechanical Ventilator Mechanical Ventilator 11/27/19 12:00 30 11/27/19 12:00 16 Mechanical Ventilator 30 11/27/19 11:30 77 16 156/90 (112) 97 11/27/19 11:28 89 16 30 11/27/19 11:00 16 Mechanical Ventilator 30 11/27/19 11:00 89 16 173/90 (117) 97 Status: sedated Condition: critical Neck: full ROM Lungs: chest wall tender Heart: HR/BP stable Abdomen: soft Extremities: no C/C/E Critical Care - Subjective ROS Limited/Unobtainable: No Condition: critical EKG Rhythm: Sinus Rhythm FI02: 30 Vent Support Breath Rate: 16 Vent Support Mode: AC Vent Tidal Volume: 550 Sputum Amount: Moderate PEEP: 5.0 PIP: 28 Tube Feeding Amount: 40 I&O: Intake and Output 11/27/19 11/28/19 19:00 07:00 Intake Total 1237.86513 ml 1005.343 ml Output Total 875 ml 570 ml Balance 362.48810 ml 435.343 ml Free Water 250 ml 0 ml IV Total 477.09972 ml 465.343 ml Tube Feeding 480 ml 480 ml Other 30 ml 60 ml Output Urine Total 875 ml 570 ml # Bowel Movements 2 CXR: bilateral infiltrate and effusion ET-Tube: 7.5 ET Position: 24 Susannah Hightower MD Nov 28, 2019 10:53
[2019-11-28] MEDS: Nitroglycerin Patch 0.4mg TDERMAL SCH (11:00)
--- NOTE | 2019-11-28 11:13 | NUR ---
NURSE NOTES: Nitro patch not given, PT BP on monitoring tech shows 88/57, HR 76 a-fib, saturating at 100%; no S/S of respiratory distress, KRISTIE Bailey made aware, will continue to monitor PT.
--- NOTE | 2019-11-28 11:15 | NUR ---
DISPENSARY ATTENDANT NOTE SW did not receive call back from pt's daughters. SW left another vms to Amytitus Bolanos [phone] and Paul Bullock [phone] (it went straight to ). Signed: 11/28/19 at 1116 by SRINIVASAN CADE <Co-Signature Required>
--- NOTE | 2019-11-28 11:30 | Nephrology Progress Note ---
Assessment/Plan Problem List: (1) Acute on chronic renal insufficiency Assessment: Serum creatinine gradually decreasing (2) Acute hypercapnic respiratory failure (3) Anemia in chronic kidney disease (CKD) (4) BPH (benign prostatic hyperplasia) Assessment Acute renal failure Possible underlying chronic kidney failure Hyperkalemia Anemia other conditions: (1) Acute hypercapnic respiratory failure (2) Paroxysmal A-fib (3) Anemia, chronic renal failure (4) History of hypertension (5) Alzheimer's dementia (6) Chronic hepatitis (7) BPH (benign prostatic hyperplasia) Plan Aim to keep blood pressure over 100 systolic Adjust hydralazine dose Adjust BP medications Nitrate Stop hydration Trial of Zaroxolyn as chest x-ray indicates worsening CHF Monitor intake and output Monitor renal parameters Avoid nephrotoxic's Kidney ultrasound results noted indicative of chronicity 2D echocardiogram result noted ejection fraction 55% Anemia work-up noted Per orders Discussed with Dr. Zaidi Subjective ROS Limited/Unobtainable: Yes Objective Objective Last 24 Hour Vital Signs Date Time Temp Pulse Resp B/P (MAP) Pulse Ox O2 Delivery O2 Flow Rate FiO2 11/28/19 11:01 64 16 30 11/28/19 11:00 16 Endotracheal Tube 30 11/28/19 11:00 88/57 11/28/19 11:00 69 16 88/57 (67) 100 11/28/19 10:00 80 16 95/61 (72) 99 11/28/19 10:00 16 Endotracheal Tube 30 11/28/19 09:00 145 16 143/72 (95) 100 11/28/19 09:00 16 Endotracheal Tube 30 11/28/19 09:00 92 16 121/70 (87) 98 11/28/19 08:46 99 11/28/19 08:39 91 130/67 11/28/19 08:39 91 130/67 11/28/19 08:00 99.0 91 16 130/67 (88) 99 11/28/19 08:00 88 11/28/19 08:00 16 Endotracheal Tube 30 11/28/19 08:00 Mechanical Ventilator Mechanical Ventilator Mechanical Ventilator 11/28/19 08:00 30 11/28/19 07:00 98 16 135/81 (99) 99 11/28/19 07:00 16 Mechanical Ventilator 30 11/28/19 06:53 91 16 30 11/28/19 06:30 96 16 11/28/19 06:00 16 Mechanical Ventilator 30 11/28/19 06:00 93 17 150/87 (108) 98 11/28/19 05:40 16 Mechanical Ventilator 30 11/28/19 05:39 146/92 11/28/19 05:39 16 Mechanical Ventilator 30 11/28/19 05:24 96 16 30 11/28/19 05:00 16 Mechanical Ventilator 30 11/28/19 05:00 94 16 126/80 (95) 98 11/28/19 04:00 30 11/28/19 04:00 98.6 89 16 138/89 (105) 98 11/28/19 04:00 16 Mechanical Ventilator 30 11/28/19 04:00 Mechanical Ventilator Mechanical Ventilator Mechanical Ventilator 11/28/19 03:20 73 16 30 11/28/19 03:12 82 11/28/19 03:00 83 16 129/87 (101) 99 11/28/19 03:00 16 Mechanical Ventilator 30 11/28/19 02:00 84 16 135/87 (103) 99 11/28/19 02:00 16 Mechanical Ventilator 30 11/28/19 01:23 75 16 30 11/28/19 01:00 16 Mechanical Ventilator 30 11/28/19 01:00 76 16 130/76 (94) 99 11/28/19 00:00 Mechanical Ventilator Mechanical Ventilator Mechanical Ventilator 11/28/19 00:00 98.5 77 16 143/90 (107) 99 11/28/19 00:00 16 Mechanical Ventilator 30 11/28/19 00:00 30 11/27/19 23:20 141/90 11/27/19 23:10 72 16 30 11/27/19 23:08 78 11/27/19 23:00 16 Mechanical Ventilator 30 11/27/19 23:00 81 19 141/90 (107) 99 11/27/19 22:22 16 Non-Rebreather 30 11/27/19 22:00 16 Non-Rebreather 30 11/27/19 22:00 73 16 124/83 (97) 99 11/27/19 21:19 80 16 30 11/27/19 21:00 87 17 145/99 (114) 98 11/27/19 21:00 16 Mechanical Ventilator 30 11/27/19 20:33 90 142/94 11/27/19 20:00 30 11/27/19 20:00 16 Mechanical Ventilator 30 11/27/19 20:00 98.3 87 16 154/84 (107) 98 11/27/19 20:00 Mechanical Ventilator Mechanical Ventilator Mechanical Ventilator 11/27/19 19:53 89 11/27/19 19:00 16 Mechanical Ventilator 30 11/27/19 19:00 82 16 151/89 (109) 98 11/27/19 18:31 89 17 30 11/27/19 18:30 83 16 145/76 (99) 98 11/27/19 18:00 84 16 166/95 (118) 98 11/27/19 18:00 16 Mechanical Ventilator 30 11/27/19 17:59 137/81 11/27/19 17:30 84 16 137/81 (99) 98 11/27/19 17:00 16 Mechanical Ventilator 30 11/27/19 17:00 97 16 163/89 (113) 97 11/27/19 16:52 87 17 30 11/27/19 16:30 92 16 172/99 (123) 97 11/27/19 16:00 Mechanical Ventilator Mechanical Ventilator Mechanical Ventilator 11/27/19 16:00 16 Mechanical Ventilator 30 11/27/19 16:00 103 11/27/19 16:00 30 11/27/19 16:00 98.2 83 16 155/100 (118) 98 11/27/19 15:30 88 16 145/92 (109) 98 11/27/19 15:15 83 18 30 11/27/19 15:00 92 16 175/101 (125) 94 11/27/19 14:58 17 Mechanical Ventilator 30 11/27/19 14:30 79 16 162/91 (114) 98 11/27/19 14:00 16 Mechanical Ventilator 30 11/27/19 14:00 76 16 162/99 (120) 98 11/27/19 13:30 74 16 158/91 (113) 99 11/27/19 13:20 69 16 30 11/27/19 13:02 67 126/76 11/27/19 13:02 126/76 11/27/19 13:00 16 Mechanical Ventilator 30 11/27/19 13:00 66 16 129/92 (104) 99 11/27/19 12:30 66 16 126/76 (93) 99 11/27/19 12:00 97.8 75 16 142/91 (108) 98 11/27/19 12:00 84 11/27/19 12:00 Mechanical Ventilator Mechanical Ventilator Mechanical Ventilator 11/27/19 12:00 30 11/27/19 12:00 16 Mechanical Ventilator 30 11/27/19 11:30 77 16 156/90 (112) 97 Intake and Output 11/27/19 11/28/19 19:00 07:00 Intake Total 1237.60540 ml 1005.343 ml Output Total 875 ml 570 ml Balance 362.53075 ml 435.343 ml Free Water 250 ml 0 ml IV Total 477.89004 ml 465.343 ml Tube Feeding 480 ml 480 ml Other 30 ml 60 ml Output Urine Total 875 ml 570 ml # Bowel Movements 2 Laboratory Tests 11/28/19 03:00: Stool Occult Blood [Pending] 11/28/19 04:20: White Blood Count 18.0H, Red Blood Count 2.41L, Hemoglobin 7.1L, Hematocrit 21.8L, Mean Corpuscular Volume 91, Mean Corpuscular Hemoglobin 29.4, Mean Corpuscular Hemoglobin Concent 32.4, Red Cell Distribution Width 17.9H, Platelet Count 338, Mean Platelet Volume 4.6L, Neutrophils (%) (Auto) , Lymphocytes (%) (Auto) , Monocytes (%) (Auto) , Eosinophils (%) (Auto) , Basophils (%) (Auto) , Differential Total Cells Counted 100, Neutrophils % ( Manual) 81H, Lymphocytes % (Manual) 7L, Monocytes % (Manual) 9, Eosinophils % ( Manual) 3, Basophils % (Manual) 0, Band Neutrophils 0, Platelet Estimate Adequate, Platelet Morphology Normal, Hypochromasia 1+, Anisocytosis 1+, Activated Partial Thromboplast Time 74H, Sodium Level 139, Potassium Level 4.1, Chloride Level 104, Carbon Dioxide Level 27, Anion Gap 8, Blood Urea Nitrogen 61H, Creatinine 4.8H, Estimat Glomerular Filtration Rate 14.2, Glucose Level 111H, Calcium Level 8.7, Phosphorus Level 3.8, Magnesium Level 2.0, Total Bilirubin 0.2, Aspartate Amino Transf (AST/SGOT) 12L, Alanine Aminotransferase ( ALT/SGPT) 9L, Alkaline Phosphatase 55, Total Protein 6.1L, Albumin 2.0L, Globulin 4.1, Albumin/Globulin Ratio 0.5L Height (Feet): 5 Height (Inches): 10.00 Weight (Pounds): 205 General Appearance: no apparent distress, lethargic EENT: other - Remains intubated on ventilator Cardiovascular: other - Heart rate fluctuating Respiratory/Chest: decreased breath sounds Abdomen: soft, distended Objective No change Reynold Ellison MD Nov 28, 2019 11:30
--- NOTE | 2019-11-28 11:34 | NUR ---
RD ASSESSMENT & RECOMMENDATIONS SEE CARE ACTIVITY FOR COMPLETE ASSESSMENT DAILY ESTIMATED NEEDS: Needs based on Critical care, wound, ARF/ 80kg abw 22-28 kcals/kg [id number] total kcals 0.8-1.0 (increase w/ renal improvement) g protein/kg 64-80 g total protein Fluids per MD NUTRITION DIAGNOSIS: * Swallowing difficulty R/T respiratory status as evidenced by pt orally intubated, on OGT feeding. * Altered nutrition related lab values R/T ARF on CKD as evidenced by elev creat (6.4 -> 4.8), elev K (6.1*->wnl), elev BNP (>86781). CURRENT TF:Jevity 1.2 @ 40ml/hr PO DIET RECOMMENDATIONS: CLINICAL SERVICES ASSISTANT eval post extubation ENTERAL NUTRITION RECOMMENDATIONS: Nepro @ 40ml/hr x 24 hrs to provide 960ml, 1728kcal, 78g prot, 698ml free water * Rec NEPRO at this time given hyperkalemia upon adm, creat 6.4 (now 5.3) * Initiate Nepro @ 10ml/hr x 6hrs, advance 10ml q 4-6 hrs as tolerated to goal rate. * HOB over 30 degrees/ water flush per MD * TF @ goal will meet 98% est kcal and 100% est prot needs ADDITIONAL RECOMMENDATIONS: * Per SNF: HT=71" GW=400vvp * Monitor renal fxn and lytes: creat 6.4, K 6.1 upon adm -> monitor continued need for renal TF formula of Nepro * Wound healing: add Nephrovite x 1 add Petros BID as tolerated
--- NOTE | 2019-11-28 11:42 | NUR ---
CASE MANAGEMENT:REVIEW 11/28/19 SI:PULMONARY EDEMA . ATRIAL FIBRILLATION . SEPSIS . UTI . RENAL FAILURE . TROP (+) . RESPIRATORY FAILURE . PNA . CHF MULTIPLE RENAL CYST . +VRE 99.0 91 16 130/67 99% MECHANICAL VENTILATOR 88/57 @11AM AC 16 TV 550 FIO2 30% H/H 7.1/21.8 WBC 18.0 BUN 61 CREAT 4.8 IS:HEPARIN GTT IV D5@50ML/HR IV MEROPENEM BID IV PROTONIX BID LOPRESSOR NG BID HYDRALAZINE NG Q6HR NTG TD QD IV MORPHINE SULFATE Q4HR/PRN IV FENTANYL Q24HR ASA NG QD CHEST X-RAY- CHF. Bilateral pleural effusions. No significant change \: INTENSIVE CARE UNIT DCP: MITCH CARE WHEN STABLE PLAN: SPUTUM CX(+) PSEUDOMONAS AERUGINOSA BLOOD CX-NO GROWTH AFTER 5 DAYS URINE (+) E.COLI POSSIBLE BLOOD TRANSFUSION MONITOR H/H MONITOR WBC INCREASING MONITOR LOW BP
[2019-11-28] MEDS: HydrALAZINE 10mg Tab NG SCH ×3 (12:00→23:47)
--- NOTE | 2019-11-28 12:00 | NUR ---
NURSE NOTES: 1200 prescribed Hydralazine not given BP 105/68; parameters not met.
--- NOTE | 2019-11-28 12:40 | Internal Med Progress Note ---
Subjective Date of Service: Nov 28, 2019 Physician Name MarilouAbisai Attending Physician Claude Garza MD Current Medications Medications (Trade) Dose Ordered Sig/Cyndi Route PRN Reason Start Time Stop Time Status Last Admin Dose Admin Acetaminophen (Tylenol) 650 mg Q4H PRN NG Fever 11/21/19 13:00 12/21/19 08:14 11/26/19 23:15 Albuterol/ Ipratropium (Albuterol/ Ipratropium) 3 ml Q4H PRN HHN Shortness of Breath 11/24/19 10:11 11/29/19 10:10 Amlodipine Besylate (Norvasc) 2.5 mg DAILY NG 11/27/19 12:45 12/27/19 12:44 11/28/19 08:39 Aspirin (ASA) 81 mg DAILY NG 11/23/19 09:00 01/07/20 08:59 11/28/19 08:39 Chlorhexidine Gluconate (Corrie-Hex 2%) 1 applic DAILY@2000 TOPIC 11/27/19 20:00 02/25/20 19:59 11/27/19 20:32 Dextrose (Dextrose 50%) 25 ml Q30M PRN IV Hypoglycemia 11/21/19 08:15 02/19/20 08:14 Dextrose (Dextrose 50%) 50 ml Q30M PRN IV Hypoglycemia 11/21/19 08:15 02/19/20 08:14 Docusate Sodium (Colace) 100 mg THREE TIMES A DAY NG 11/21/19 13:00 12/21/19 12:59 11/28/19 08:38 Fentanyl Citrate 1000 mcg/Sodium Chloride 100 ml @ 0 mls/hr Q24H IV 11/26/19 21:00 12/03/19 20:59 11/28/19 05:40 Heparin Sodium/ Dextrose 500 ml @ 22.426 mls/ hr ADJUST PER PROTOCOL IV 11/24/19 05:45 12/24/19 05:44 11/27/19 21:52 Heparin Sodium/ Sodium Chloride (Heparin 1000 units/500ml Premix) 1,000 unit ONCE PRN IV PICC PLACEMENT 11/27/19 16:30 11/29/19 16:29 Hydralazine HCl (Apresoline) 10 mg Q6HR NG 11/28/19 12:00 02/24/20 11:59 Lidocaine HCl (Xylocaine 1% 30ml) 30 ml ONCE PRN INJ PICC PLACEMENT 11/27/19 16:30 11/29/19 16:29 Meropenem 500 mg/ Sodium Chloride 55 ml @ 110 mls/hr Q12HR IVPB 11/25/19 14:00 11/30/19 13:59 11/28/19 08:39 Metolazone (Zaroxolyn) 10 mg DAILY NG 11/27/19 14:00 12/27/19 13:59 11/28/19 08:39 Metoprolol Tartrate (Lopressor) 50 mg Q12HR NG 11/28/19 21:00 02/19/20 20:59 Nitroglycerin (Ntg) 1 patch Q24H TDERMAL 11/22/19 11:00 12/22/19 10:59 11/27/19 13:02 Ondansetron HCl (Zofran) 4 mg Q6H PRN IVP Nausea & Vomiting 11/21/19 08:15 12/21/19 08:14 Pantoprazole (Protonix) 40 mg Q12HR IV 11/21/19 21:00 12/21/19 09:38 11/28/19 08:37 Polyethylene Glycol (Miralax) 17 gm DAILYPRN PRN NG Constipation 11/21/19 13:00 12/21/19 08:14 Vancomycin HCl (Vanco rx to dose) 1 ea DAILY PRN MISC Per rx protocol 11/22/19 14:45 12/22/19 14:44 Allergies: Coded Allergies: LISINOPRIL (Verified Allergy, Unknown, 11/21/19) SIMVASTATIN (Verified Allergy, Unknown, 11/21/19) TERAZOSIN (Verified Allergy, Unknown, 11/21/19) ROS Limited/Unobtainable: Yes Subjective 83 YO M admitted with respiratory failure. Now pneumonia, UTI and sepsis. Cover for Int Med-DR Garza. Intubated and sedated. ICU Objective Last Vital Signs Date Time Temp Pulse Resp B/P (MAP) Pulse Ox O2 Delivery O2 Flow Rate FiO2 11/28/19 12:00 98.6 73 16 105/68 (80) 100 11/28/19 12:00 Endotracheal Tube 30 Laboratory Tests Test 11/28/19 03:00 11/28/19 04:20 Stool Occult Blood Positive (NEGATIVE) White Blood Count 18.0 K/UL (4.8-10.8) H Red Blood Count 2.41 M/UL (4.70-6.10) L Hemoglobin 7.1 G/DL (14.2-18.0) L Hematocrit 21.8 % (42.0-52.0) L Mean Corpuscular Volume 91 FL (80-99) Mean Corpuscular Hemoglobin 29.4 PG (27.0-31.0) Mean Corpuscular Hemoglobin Concent 32.4 G/DL (32.0-36.0) Red Cell Distribution Width 17.9 % (11.6-14.8) H Platelet Count 338 K/UL (150-450) Mean Platelet Volume 4.6 FL (6.5-10.1) L Neutrophils (%) (Auto) % (45.0-75.0) Lymphocytes (%) (Auto) % (20.0-45.0) Monocytes (%) (Auto) % (1.0-10.0) Eosinophils (%) (Auto) % (0.0-3.0) Basophils (%) (Auto) % (0.0-2.0) Differential Total Cells Counted 100 Neutrophils % (Manual) 81 % (45-75) H Lymphocytes % (Manual) 7 % (20-45) L Monocytes % (Manual) 9 % (1-10) Eosinophils % (Manual) 3 % (0-3) Basophils % (Manual) 0 % (0-2) Band Neutrophils 0 % (0-8) Platelet Estimate Adequate Platelet Morphology Normal Hypochromasia 1+ Anisocytosis 1+ Activated Partial Thromboplast Time 74 SEC (23-33) H Sodium Level 139 MMOL/L (136-145) Potassium Level 4.1 MMOL/L (3.5-5.1) Chloride Level 104 MMOL/L (98-107) Carbon Dioxide Level 27 MMOL/L (21-32) Anion Gap 8 mmol/L (5-15) Blood Urea Nitrogen 61 mg/dL (7-18) H Creatinine 4.8 MG/DL (0.55-1.30) H Estimat Glomerular Filtration Rate 14.2 mL/min (>60) Glucose Level 111 MG/DL (74-106) H Calcium Level 8.7 MG/DL (8.5-10.1) Phosphorus Level 3.8 MG/DL (2.5-4.9) Magnesium Level 2.0 MG/DL (1.8-2.4) Total Bilirubin 0.2 MG/DL (0.2-1.0) Aspartate Amino Transf (AST/SGOT) 12 U/L (15-37) L Alanine Aminotransferase (ALT/SGPT) 9 U/L (12-78) L Alkaline Phosphatase 55 U/L (46-116) Total Protein 6.1 G/DL (6.4-8.2) L Albumin 2.0 G/DL (3.4-5.0) L Globulin 4.1 g/dL Albumin/Globulin Ratio 0.5 (1.0-2.7) L Intake and Output 11/27/19 11/28/19 19:00 07:00 Intake Total 1237.08512 ml 1005.343 ml Output Total 875 ml 570 ml Balance 362.93603 ml 435.343 ml Free Water 250 ml 0 ml IV Total 477.52509 ml 465.343 ml Tube Feeding 480 ml 480 ml Other 30 ml 60 ml Output Urine Total 875 ml 570 ml # Bowel Movements 2 Objective PHYSICAL EXAMINATION: GENERAL: The patient is well-developed, well-nourished male, who is intubated and sedated in the intensive care unit. HEENT: Eyes, pupils are equal and responsive to light and accommodation. Extraocular movements are intact. NECK: Supple without lymphadenopathy. CHEST: Mech vent; Bilateral expiratory air sounds, otherwise clear to auscultation without rales. CARDIOVASCULAR: Regular rhythm and rate. S1 and S2 normal without murmurs, rubs, or gallops. ABDOMEN: Soft, nontender, and nondistended. Positive bowel sounds. No evidence of hepatosplenomegaly. Currently, no rebound or guarding noted. EXTREMITIES: Negative for clubbing, cyanosis, or edema. RECTAL/GENITAL: Not performed. NEUROLOGIC: Cranial nerves II through XII are grossly intact without focal deficits. Motor strength is 5/5 bilaterally. Deep tendon reflexes are 2+ plantar. Assessment/Plan Assessment/Plan ASSESSMENT: This is an 83-year-old male. 1. Respiratory failure. 2. Congestive heart failure. 3. Atrial fibrillation. 4. Altered mental status. 5. Urinary tract infection. 6. Renal failure. 7. Hypertension. 8. Alzheimer's dementia. 9. Benign prostatic hypertrophy. 10. urinary tract infection-ESBL E. Coli and pseudamonas aeruginosa. 11. Sepsis-Staph Warneri 12. pneumonia=pseudamonas aeruginosa TREATMENT: 1. Congestive heart failure. A Cardiology consultation has been obtained with Dr. Vasu Zaidi. We will follow recommendations of Cardiology. The patient is currently receiving intravenous Lasix. 2. Respiratory failure. A Pulmonary consultation has been obtained with Dr. Susannah Hightower. The patient is currently intubated in the intensive care unit. We will follow recommendations of Pulmonary. ABX=meropenem and vanco per ID=Dr Hicks 3. Atrial fibrillation as above. A Cardiology consultation has been obtained with Dr. Vasu Zaidi. 4. Renal failure. A Nephrology consultation has been obtained with Dr. Ellison. We will follow recommendations of Nephrology. 5. Hypertension. The patient is currently hypotensive in the intensive care unit. 6. Alzheimer's dementia. 7. Benign prostatic hypertrophy. 8. ABX = meropenem per ID Abisai Zamarripa MD Nov 28, 2019 12:40
--- NOTE | 2019-11-28 13:25 | NUR ---
RADIOLOGY NOTE: LEFT UPPER EXTREMITY PICC PLACED.
--- NOTE | 2019-11-28 13:25 | NUR ---
NURSE NOTES: THAD-PICC 2 lumens placed successfully, will await confirmation to use. No signs of acute bleeding noted.
--- NOTE | 2019-11-28 14:18 | Diagnostic Imaging Report ---
Indication: terminal press operator venous access Findings: After the indications, procedure, risks, complications, and alternatives of the procedure were explained, written informed consent was obtained. The left upper extremity was prepped with alcohol. All elements of maximal sterile barrier technique were followed including usage of a cap, mask, sterile gown, sterile gloves, hand hygiene and a large sterile sheet. Sonographic evaluation of the upper extremity was performed demonstrating a patent and compressible basilic vein. Access was obtained under real-time ultrasound guidance (with utilization of sterile gel and sterile probe cover) and digital image was saved and archived. An .018 wire was introduced. Needle exchanged for a 5 Setswana peel-away sheath. Measurements were obtained. A 5 Setswana dual-lumen Power PICC line catheter was cut to 40 cm and introduced over the wire. Peel-away sheath and wire were removed.Catheter was secured to the skin using 2-0 Prolene suture. Both ports aspirate and flush easily. Post procedure chest x-ray demonstrates good position of the PICC line catheter within the SVC. Impression: Successful placement of an upper extremity PICC line catheter
--- NOTE | 2019-11-28 14:34 | NUR ---
NURSE NOTES: Informed MD Katja that PT HgB 7.1; Hct 21.8; orders given to transfuse [address]. [address] orders on behalf of .
[2019-11-28] MEDS: Acetaminophen 650mg/20.3ml NG PRN (16:19)
--- NOTE | 2019-11-28 17:00 | NUR ---
NURSE NOTES: Late entry: Did rounds, checked on PT to find R-hand 20g dislodged, profuse bleeding noted from site; additional staff requested, pressure applied bleeding still noted, complete linens changed, HTN noted 152/87 on threat monitoring analyst, no S/S of respiratory distress, remains a-fib, surgicel applied to hand, will continue to monitor PT.
[2019-11-28] MEDS ORDERED: Surgicel 4in x 8in TOPIC ONE (17:30)
--- NOTE | 2019-11-28 17:48 | NUR ---
NURSE NOTES: MD Dyan made rounds, updates given and informed MD that PT heparin stop since 1700 after noting black tarry stool on 3rd BM; and after profuse bleeding from L-hand PIV site; informed MD that he is currently getting 1 pRBC transfusion. Orders given for CBC post 1 hour after transfusion.
--- NOTE | 2019-11-28 17:52 | Cardiology Progress Note ---
Assessment/Plan Assessment/Plan 1. Permanent versus paroxysmal episodes of atrial fibrillation. 2. Tachycardia. 3. Renal insufficiency. 4. Obstructive uropathy. 5. History of hypertension. 6. Prostatic hypertrophy. 7. History of latent tuberculosis. 8. History of heart failure. 9. History of hepatitis C infection. 10. Respiratory failure with respiratory acidosis, now on vent 11. melanotic stool cxr personally reviewed tele personally reviewed ekg reviewed bp seem ok need tigher control, if not need dialysis will consider adding hydralazine torp abn likely due to renal insuf on heparin but since melanotic stool will dc for now getttign 1 unit fo prbc may need more in lightof black stool to repaet cbc post transfucioen bp seem fine despite anemia so unlikey brisk bleed at least at this time d/w rn need to be in neg fluid balance rate control with bb Subjective ROS Limited/Unobtainable: Yes Subjective vent isolation Objective Last 24 Hour Vital Signs Date Time Temp Pulse Resp B/P (MAP) Pulse Ox O2 Delivery O2 Flow Rate FiO2 11/28/19 17:00 78 16 159/81 (107) 99 11/28/19 17:00 16 Mechanical Ventilator 30 11/28/19 16:49 98.7 11/28/19 16:00 98.7 90 15 109/74 (86) 99 11/28/19 16:00 Mechanical Ventilator Mechanical Ventilator Mechanical Ventilator 11/28/19 16:00 15 Endotracheal Tube 30 11/28/19 16:00 82 11/28/19 16:00 30 11/28/19 15:30 98.7 99 16 141/79 (99) 99 11/28/19 15:00 89 16 111/65 (80) 99 11/28/19 15:00 16 Endotracheal Tube 30 11/28/19 14:27 99 16 30 11/28/19 14:26 98.6 11/28/19 14:00 98 16 135/79 (97) 100 11/28/19 14:00 16 Endotracheal Tube 30 11/28/19 13:53 16 Endotracheal Tube 30 11/28/19 13:18 88 16 30 11/28/19 13:00 12 Endotracheal Tube 30 11/28/19 13:00 93 12 136/84 (101) 100 11/28/19 12:00 98.6 73 16 105/68 (80) 100 11/28/19 12:00 91 11/28/19 12:00 105/68 11/28/19 12:00 16 Endotracheal Tube 30 11/28/19 12:00 Mechanical Ventilator Mechanical Ventilator Mechanical Ventilator 11/28/19 12:00 30 11/28/19 11:01 64 16 30 11/28/19 11:00 16 Endotracheal Tube 30 11/28/19 11:00 88/57 11/28/19 11:00 69 16 88/57 (67) 100 11/28/19 10:00 80 16 95/61 (72) 99 11/28/19 10:00 16 Endotracheal Tube 30 11/28/19 09:00 145 16 143/72 (95) 100 11/28/19 09:00 16 Endotracheal Tube 30 11/28/19 09:00 92 16 121/70 (87) 98 11/28/19 08:46 129 18 30 11/28/19 08:46 99 11/28/19 08:39 91 130/67 11/28/19 08:39 91 130/67 11/28/19 08:00 99.0 91 16 130/67 (88) 99 11/28/19 08:00 88 11/28/19 08:00 16 Endotracheal Tube 30 11/28/19 08:00 Mechanical Ventilator Mechanical Ventilator Mechanical Ventilator 11/28/19 08:00 30 11/28/19 07:00 98 16 135/81 (99) 99 11/28/19 07:00 16 Mechanical Ventilator 30 11/28/19 06:53 91 16 30 11/28/19 06:30 96 16 11/28/19 06:00 16 Mechanical Ventilator 30 11/28/19 06:00 93 17 150/87 (108) 98 11/28/19 05:40 16 Mechanical Ventilator 30 11/28/19 05:39 146/92 11/28/19 05:39 16 Mechanical Ventilator 30 11/28/19 05:24 96 16 30 11/28/19 05:00 16 Mechanical Ventilator 30 11/28/19 05:00 94 16 126/80 (95) 98 11/28/19 04:00 30 11/28/19 04:00 98.6 89 16 138/89 (105) 98 11/28/19 04:00 16 Mechanical Ventilator 30 11/28/19 04:00 Mechanical Ventilator Mechanical Ventilator Mechanical Ventilator 11/28/19 03:20 73 16 30 11/28/19 03:12 82 11/28/19 03:00 83 16 129/87 (101) 99 11/28/19 03:00 16 Mechanical Ventilator 30 11/28/19 02:00 84 16 135/87 (103) 99 11/28/19 02:00 16 Mechanical Ventilator 30 11/28/19 01:23 75 16 30 11/28/19 01:00 16 Mechanical Ventilator 30 11/28/19 01:00 76 16 130/76 (94) 99 11/28/19 00:00 Mechanical Ventilator Mechanical Ventilator Mechanical Ventilator 11/28/19 00:00 98.5 77 16 143/90 (107) 99 11/28/19 00:00 16 Mechanical Ventilator 30 11/28/19 00:00 30 11/27/19 23:20 141/90 11/27/19 23:10 72 16 30 11/27/19 23:08 78 11/27/19 23:00 16 Mechanical Ventilator 30 11/27/19 23:00 81 19 141/90 (107) 99 11/27/19 22:22 16 Non-Rebreather 30 11/27/19 22:00 16 Non-Rebreather 30 11/27/19 22:00 73 16 124/83 (97) 99 11/27/19 21:19 80 16 30 11/27/19 21:00 87 17 145/99 (114) 98 11/27/19 21:00 16 Mechanical Ventilator 30 11/27/19 20:33 90 142/94 11/27/19 20:00 30 11/27/19 20:00 16 Mechanical Ventilator 30 11/27/19 20:00 98.3 87 16 154/84 (107) 98 11/27/19 20:00 Mechanical Ventilator Mechanical Ventilator Mechanical Ventilator 11/27/19 19:53 89 11/27/19 19:00 16 Mechanical Ventilator 30 11/27/19 19:00 82 16 151/89 (109) 98 11/27/19 18:31 89 17 30 11/27/19 18:30 83 16 145/76 (99) 98 11/27/19 18:00 84 16 166/95 (118) 98 11/27/19 18:00 16 Mechanical Ventilator 30 11/27/19 17:59 137/81 General Appearance: no apparent distress, agitated, on vent, patient on isolation Cardiovascular: irregularly irregular Respiratory/Chest: rhonchi - bilaterally Abdomen: normal bowel sounds, non tender, soft Extremities: no swelling Intake and Output 11/27/19 11/28/19 19:00 07:00 Intake Total 1237.35773 ml 1005.343 ml Output Total 875 ml 570 ml Balance 362.97501 ml 435.343 ml Free Water 250 ml 0 ml IV Total 477.12700 ml 465.343 ml Tube Feeding 480 ml 480 ml Other 30 ml 60 ml Output Urine Total 875 ml 570 ml # Bowel Movements 2 Laboratory Tests Test 11/28/19 03:00 11/28/19 04:20 Stool Occult Blood Positive (NEGATIVE) White Blood Count 18.0 K/UL (4.8-10.8) H Red Blood Count 2.41 M/UL (4.70-6.10) L Hemoglobin 7.1 G/DL (14.2-18.0) L Hematocrit 21.8 % (42.0-52.0) L Mean Corpuscular Volume 91 FL (80-99) Mean Corpuscular Hemoglobin 29.4 PG (27.0-31.0) Mean Corpuscular Hemoglobin Concent 32.4 G/DL (32.0-36.0) Red Cell Distribution Width 17.9 % (11.6-14.8) H Platelet Count 338 K/UL (150-450) Mean Platelet Volume 4.6 FL (6.5-10.1) L Neutrophils (%) (Auto) % (45.0-75.0) Lymphocytes (%) (Auto) % (20.0-45.0) Monocytes (%) (Auto) % (1.0-10.0) Eosinophils (%) (Auto) % (0.0-3.0) Basophils (%) (Auto) % (0.0-2.0) Differential Total Cells Counted 100 Neutrophils % (Manual) 81 % (45-75) H Lymphocytes % (Manual) 7 % (20-45) L Monocytes % (Manual) 9 % (1-10) Eosinophils % (Manual) 3 % (0-3) Basophils % (Manual) 0 % (0-2) Band Neutrophils 0 % (0-8) Platelet Estimate Adequate Platelet Morphology Normal Hypochromasia 1+ Anisocytosis 1+ Activated Partial Thromboplast Time 74 SEC (23-33) H Sodium Level 139 MMOL/L (136-145) Potassium Level 4.1 MMOL/L (3.5-5.1) Chloride Level 104 MMOL/L (98-107) Carbon Dioxide Level 27 MMOL/L (21-32) Anion Gap 8 mmol/L (5-15) Blood Urea Nitrogen 61 mg/dL (7-18) H Creatinine 4.8 MG/DL (0.55-1.30) H Estimat Glomerular Filtration Rate 14.2 mL/min (>60) Glucose Level 111 MG/DL (74-106) H Calcium Level 8.7 MG/DL (8.5-10.1) Phosphorus Level 3.8 MG/DL (2.5-4.9) Magnesium Level 2.0 MG/DL (1.8-2.4) Total Bilirubin 0.2 MG/DL (0.2-1.0) Aspartate Amino Transf (AST/SGOT) 12 U/L (15-37) L Alanine Aminotransferase (ALT/SGPT) 9 U/L (12-78) L Alkaline Phosphatase 55 U/L (46-116) Total Protein 6.1 G/DL (6.4-8.2) L Albumin 2.0 G/DL (3.4-5.0) L Globulin 4.1 g/dL Albumin/Globulin Ratio 0.5 (1.0-2.7) L Vasu Zaidi MD Nov 28, 2019 17:52
--- NOTE | 2019-11-28 19:16 | NUR ---
HAND-OFF: Report and PT given to SYED Mario.
--- NOTE | 2019-11-28 19:21 | NUR ---
RESPIRATORY NOTE: Received pt on AC 16, 550VT, 30%, no PEEP. Pt is intubated w/ ETT 7.5 @ 25cm lipline, secured by anchorfast. Pt asleep/sedated. B/S marlen rhonchi, sxn small to moderate amounts of thick/thin, pale-yellow secretions. Vent plugged into red outlet, ambubag at bedside. Pt in no apparent distress at this time. Will continue to monitor pt.
--- NOTE | 2019-11-28 19:30 | NUR ---
NURSE NOTES: Received pt in no acute distress, drowsy but opens eyes to name. Remains orally intubated with vent settings of AC 16 TV550 fiO2 .30 and saturating 100%. Secretions thin, pinkish via ETT. Chest sounds with scattered rhonchi. Pt currently receiving 1 unit PRBC and showing no signs of any transfusion reaction. Newly placed PICC line on THAD intact. Pt is also on Fentanyl gtt currently at 200mcg/h. ETCO2 monitor on reading btwn 30-33. OGT in place with TF of Jevity 1.2 infusing at 40mls/h. Residuals checked and obtained bloody output. Stopped feeding at this time. Will monitor for bleeding. FC intact, UOP pale yellow.Bilat soft wrist restraints in place.
--- NOTE | 2019-11-28 20:00 | NUR ---
NURSE NOTES: Blood completely absorbed without any ill effects. VSS stable. Remains on atrial fib. Will recheck H/H in an hour.
[2019-11-28] MEDS: Dyna-Hex 2% Top Sol 2oz TOPIC SCH (20:10)
[2019-11-28 21:43] LABS: HEMATOCRIT 20.6 % (42.0-52.0); MEAN CORPUSCULAR VOLUME 91 FL (80-99); PLATELET COUNT 281 K/UL (150-450); RED BLOOD COUNT 2.26 M/UL (4.70-6.10); WHITE BLOOD COUNT 19.4 K/UL (4.8-10.8)
--- NOTE | 2019-11-28 22:20 | NUR ---
NURSE NOTES: Hgb 7.0 Hct 20.6. NGT output still bloody. TF remains on hold. Called results to Dr Hightower, order received to give Vit K 10mg IV x 1
[2019-11-28] MEDS ORDERED: Phytonadione 10 MG in D5W 55 ML IVPB ONE (22:30)
[2019-11-29] VITALS (46 sets, daily range): BP systolic 77–172; BP diastolic 43–113
--- NOTE | 2019-11-29 | NUR ---
NURSE NOTES: Calm, asleep, sedated with Fentanyl gtt at 300mcg/h to RASS-2. TF residuals 20ml, still with dark red output. TF remains on hold. Will monitor for signs of active bleeding.
--- NOTE | 2019-11-29 01:14 | NUR ---
NURSE NOTES: Had a brief episode of bradycardia, rate down to 39 for 5 secs. Pt was bearing down. BP 136/81. Pt awake and asymptomatic. Will continue to monitor
--- NOTE | 2019-11-29 02:00 | NUR ---
NURSE NOTES: Calm, asleep, no distress. No further bradycardic episode. BP stable.
--- NOTE | 2019-11-29 04:00 | NUR ---
NURSE NOTES: Had 1 melanotic stool. Complete bed bath given. PICC line dressing changed. NGT output still dark red but only about 5-10ml. TF remains on hold. No bradycardic episode, still on afib. Afebrile, BP stable.
[2019-11-29 04:33] LABS: HEMATOCRIT 19.6 % (42.0-52.0); MEAN CORPUSCULAR VOLUME 89 FL (80-99); PLATELET COUNT 266 K/UL (150-450); RED BLOOD COUNT 2.22 M/UL (4.70-6.10); RED CELL DISTRIBUTION WIDTH 18.4 % (11.6-14.8); WHITE BLOOD COUNT 21.3 K/UL (4.8-10.8)
[2019-11-29 04:38] LABS: INR 1.1 (0.9-1.1)
[2019-11-29 04:45] LABS: HEMOGLOBIN 6.5 G/DL (14.2-18.0)
--- NOTE | 2019-11-29 04:45 | NUR ---
NURSE NOTES: Lab reports hemoglobin of 6.5 and hematocrit of 19.6. Called to Dr Hightower, awaiting response
[2019-11-29 05:05] LABS: ALANINE AMINOTRANSFERASE 8 U/L (12-78); ALBUMIN/GLOBULIN RATIO 0.5 (1.0-2.7); ALKALINE PHOSPHATASE 47 U/L (46-116); ANION GAP 8 mmol/L (5-15); ASPARTATE AMINO TRANSFERASE 15 U/L (15-37); BILIRUBIN,TOTAL 0.3 MG/DL (0.2-1.0); BLOOD UREA NITROGEN 69 mg/dL (7-18); CALCIUM 9.2 MG/DL (8.5-10.1); CARBON DIOXIDE 26 MMOL/L (21-32); CHLORIDE 103 MMOL/L (98-107); CREATININE 5.2 MG/DL (0.55-1.30); POTASSIUM 3.9 MMOL/L (3.5-5.1); SODIUM 137 MMOL/L (136-145)
[2019-11-29 05:15] LABS: PHOSPHORUS 4.5 MG/DL (2.5-4.9)
--- NOTE | 2019-11-29 05:30 | NUR ---
NURSE NOTES: Order received from Dr Hightower to transfuse 1 unit PRBC
--- NOTE | 2019-11-29 05:55 | NUR ---
NURSE NOTES: Bld transfusion started. Pre tx VSS, temp 98.7. TF remains on hold
[2019-11-29] MEDS: HydrALAZINE 10mg Tab NG SCH ×2 (06:03→11:57)
--- NOTE | 2019-11-29 07:03 | NUR ---
NURSE NOTES: Dr Hightower called and wants Dr Sierra consulted. Called Dr Villagran and gave pt's info. and stated that he will "take care of it".
--- NOTE | 2019-11-29 07:06 | NUR ---
HAND-OFF: Report given to SYED Sims.
--- NOTE | 2019-11-29 07:18 | NUR ---
RESPIRATORY NOTE: received pt orally intubated with 7.5 ETT and placed 25cm at the lip. ETT is secured via anchor fast with no visible redness or skin irritation around facial area. vent orders are as followed and pt in no apparent resp distress at this time. vent is plugged into the red outlet with ambu bag at bedside. will attempt to wean later this morning and cont to monitor.
--- NOTE | 2019-11-29 07:20 | NUR ---
NURSE NOTES: Received report from SYED Gandhi. Patient is sedated and easily responsive to verbal, open his eyes with eye tracking. ETT 7.4/24cm at lipline with vent setting AC 16, Vt 550 and FIO2 30%. OGT intact, clamped and still noted with dark brown residual. Patiño intact and draining with pale yellow color urine. Left upper arm PICC intact and clean, running with fentanyl 300mcg/hr and pRBC @125ml/hr at this time. Kept dry, clean and comfortable. Will continue plan of care.
--- NOTE | 2019-11-29 08:22 | NUR ---
NURSE NOTES: Completed 1 pRBC transfusion. No adverse reaction noted. Will continue plan of are.
--- NOTE | 2019-11-29 08:47 | NUR ---
NURSE NOTES: Confirmed with RT. ETT 25cm at lipline.
[2019-11-29] MEDS: Aspirin Baby 81mg NG SCH (09:00)
[2019-11-29] MEDS ORDERED: Vancomycin 1 GM in NS 275 ML IVPB ONE (09:00)
[2019-11-29] MEDS: Docusate 100mg/10ml Liq NG SCH ×3 (09:02→17:16)
[2019-11-29] MEDS: Pantoprazole Inj IV SCH (09:02)
[2019-11-29] MEDS: Metoprolol Tartrate 50mg tab NG SCH ×2 (09:03→20:53)
[2019-11-29] MEDS: Meropenem 500 MG in NS 55 ML IVPB SCH ×2 (09:04→20:52)
--- NOTE | 2019-11-29 09:42 | NUR ---
NURSE NOTES: All due medication given as ordered. Held ASA for active bleeding. Still noted with dark black color residual from Gtube.
--- NOTE | 2019-11-29 10:01 | General Progress Note ---
Assessment/Plan Status: stable, unchanged Assessment/Plan: see full dictation patient has active GIB needs emergency EGD no family available for consent will proceed with MD consent Subjective Allergies: Coded Allergies: LISINOPRIL (Verified Allergy, Unknown, 11/21/19) SIMVASTATIN (Verified Allergy, Unknown, 11/21/19) TERAZOSIN (Verified Allergy, Unknown, 11/21/19) Objective Last 24 Hour Vital Signs Date Time Temp Pulse Resp B/P (MAP) Pulse Ox O2 Delivery O2 Flow Rate FiO2 11/29/19 09:03 105 172/106 11/29/19 09:03 105 172/106 11/29/19 08:40 99 16 30 11/29/19 07:31 12 Endotracheal Tube 100 11/29/19 07:15 81 16 30 11/29/19 06:30 91 16 155/105 (122) 100 11/29/19 06:29 93 15 11/29/19 06:03 147/85 11/29/19 06:00 98.7 97 15 147/85 (105) 98 11/29/19 06:00 18 Mechanical Ventilator 30 11/29/19 05:30 102 17 130/92 (105) 99 11/29/19 05:00 19 Mechanical Ventilator 30 11/29/19 05:00 99 16 156/113 (127) 100 11/29/19 05:00 98 16 30 11/29/19 04:30 103 17 152/92 (112) 99 11/29/19 04:00 98.7 99 16 154/82 (106) 99 11/29/19 04:00 100 11/29/19 04:00 Mechanical Ventilator Mechanical Ventilator Mechanical Ventilator 11/29/19 04:00 16 Mechanical Ventilator 30 11/29/19 04:00 30 11/29/19 03:58 16 Mechanical Ventilator 30 11/29/19 03:30 89 17 139/98 (112) 100 11/29/19 03:00 16 Mechanical Ventilator 30 11/29/19 03:00 84 16 141/85 (103) 99 11/29/19 03:00 86 16 30 11/29/19 02:30 84 16 146/84 (104) 100 11/29/19 02:00 87 16 147/88 (107) 99 11/29/19 02:00 15 Mechanical Ventilator 30 11/29/19 01:30 99 15 164/109 (127) 100 11/29/19 01:19 99 16 30 11/29/19 01:00 83 17 136/81 (99) 100 11/29/19 01:00 16 Mechanical Ventilator 30 11/29/19 00:30 84 16 145/88 (107) 100 11/29/19 00:08 16 Mechanical Ventilator 30 11/29/19 00:00 99.0 78 16 130/83 (99) 100 11/29/19 00:00 30 11/29/19 00:00 Mechanical Ventilator Mechanical Ventilator Mechanical Ventilator 11/29/19 00:00 87 11/29/19 00:00 16 Mechanical Ventilator 30 11/28/19 23:47 128/84 11/28/19 23:30 76 16 128/84 (99) 100 11/28/19 23:10 73 16 30 11/28/19 23:00 82 16 136/92 (107) 100 11/28/19 23:00 18 Mechanical Ventilator 30 11/28/19 22:30 78 14 121/76 (91) 100 11/28/19 22:00 16 Mechanical Ventilator 30 11/28/19 22:00 75 15 129/84 (99) 100 11/28/19 21:30 80 16 124/81 (95) 100 11/28/19 21:25 91 16 30 11/28/19 21:00 87 16 147/101 (116) 98 11/28/19 21:00 16 Mechanical Ventilator 30 11/28/19 20:30 94 16 139/86 (103) 97 11/28/19 20:27 100 138/84 11/28/19 20:12 14 Mechanical Ventilator 30 11/28/19 20:00 84 17 138/84 (102) 100 11/28/19 20:00 Mechanical Ventilator Mechanical Ventilator Mechanical Ventilator 11/28/19 20:00 92 11/28/19 20:00 30 11/28/19 19:30 98.9 88 16 130/79 (96) 100 11/28/19 19:14 108 16 30 11/28/19 19:00 13 Endotracheal Tube 30 11/28/19 19:00 87 0 123/75 (91) 100 11/28/19 18:21 145/78 11/28/19 18:01 91 16 145/78 (100) 93 11/28/19 18:00 17 Endotracheal Tube 30 11/28/19 17:29 102 16 30 11/28/19 17:00 78 16 159/81 (107) 99 11/28/19 17:00 16 Endotracheal Tube 30 11/28/19 16:49 98.7 11/28/19 16:00 98.7 90 15 109/74 (86) 99 11/28/19 16:00 Mechanical Ventilator Mechanical Ventilator Mechanical Ventilator 11/28/19 16:00 15 Endotracheal Tube 30 11/28/19 16:00 82 11/28/19 16:00 30 11/28/19 15:30 98.7 99 16 141/79 (99) 99 11/28/19 15:00 89 16 111/65 (80) 99 11/28/19 15:00 16 Endotracheal Tube 30 11/28/19 14:27 99 16 30 11/28/19 14:26 98.6 11/28/19 14:00 98 16 135/79 (97) 100 11/28/19 14:00 16 Endotracheal Tube 30 11/28/19 13:53 16 Endotracheal Tube 30 11/28/19 13:18 88 16 30 11/28/19 13:00 12 Endotracheal Tube 30 11/28/19 13:00 93 12 136/84 (101) 100 11/28/19 12:00 98.6 73 16 105/68 (80) 100 11/28/19 12:00 91 11/28/19 12:00 105/68 11/28/19 12:00 16 Endotracheal Tube 30 11/28/19 12:00 Mechanical Ventilator Mechanical Ventilator Mechanical Ventilator 11/28/19 12:00 30 11/28/19 11:01 64 16 30 11/28/19 11:00 16 Endotracheal Tube 30 11/28/19 11:00 88/57 11/28/19 11:00 69 16 88/57 (67) 100 Intake and Output 11/28/19 11/29/19 19:00 07:00 Intake Total 1049.260 ml 786 ml Output Total 285 ml 715 ml Balance 764.260 ml 71 ml IV Total 459.260 ml 411 ml Tube Feeding 440 ml 0 ml Blood Product 375 ml Other 150 ml Output Urine Total 285 ml 715 ml # Bowel Movements 5 2 Laboratory Tests 11/28/19 21:25: White Blood Count 19.4H, Red Blood Count 2.26L, Hemoglobin 7.0L, Hematocrit 20.6L, Mean Corpuscular Volume 91, Mean Corpuscular Hemoglobin 28.6, Mean Corpuscular Hemoglobin Concent 31.2L, Red Cell Distribution Width 20.0H, Platelet Count 281, Mean Platelet Volume 5.1L, Neutrophils (%) (Auto) , Lymphocytes (%) (Auto) , Monocytes (%) (Auto) , Eosinophils (%) (Auto) , Basophils (%) (Auto) , Differential Total Cells Counted 100, Neutrophils % ( Manual) 85H, Lymphocytes % (Manual) 8L, Monocytes % (Manual) 5, Eosinophils % ( Manual) 2, Basophils % (Manual) 0, Band Neutrophils 0, Platelet Estimate Adequate, Platelet Morphology Normal, Hypochromasia 3+, Anisocytosis 3+ 11/29/19 04:00: White Blood Count 21.3H, Red Blood Count 2.22L, Hemoglobin 6.5*L, Hematocrit 19.6L, Mean Corpuscular Volume 89, Mean Corpuscular Hemoglobin 29.4, Mean Corpuscular Hemoglobin Concent 33.3, Red Cell Distribution Width 18.4H, Platelet Count 266, Mean Platelet Volume 4.4L, Neutrophils (%) (Auto) , Lymphocytes (%) (Auto) , Monocytes (%) (Auto) , Eosinophils (%) (Auto) , Basophils (%) (Auto) , Differential Total Cells Counted 100, Neutrophils % ( Manual) 80H, Lymphocytes % (Manual) 15L, Monocytes % (Manual) 3, Eosinophils % ( Manual) 2, Basophils % (Manual) 0, Band Neutrophils 0, Platelet Estimate Adequate, Platelet Morphology Normal, Hypochromasia 3+, Anisocytosis 2+, Prothrombin Time 11.3, Prothromb Time International Ratio 1.1, Activated Partial Thromboplast Time 33, Sodium Level 137, Potassium Level 3.9, Chloride Level 103, Carbon Dioxide Level 26, Anion Gap 8, Blood Urea Nitrogen 69H, Creatinine 5.2H, Estimat Glomerular Filtration Rate 12.8, Glucose Level 106, Uric Acid 7.7H, Calcium Level 9.2, Phosphorus Level 4.5, Magnesium Level 2.1, Total Bilirubin 0.3, Aspartate Amino Transf (AST/SGOT) 15, Alanine Aminotransferase (ALT/SGPT) 8L, Alkaline Phosphatase 47, Troponin I 0.008, C- Reactive Protein, Quantitative 5.4H, Pro-B-Type Natriuretic Peptide 85256A, Total Protein 6.2L, Albumin 2.0L, Globulin 4.2, Albumin/Globulin Ratio 0.5L, Random Vancomycin Level 17.2 Height (Feet): 5 Height (Inches): 10.00 Weight (Pounds): 212 Hunter Sierra MD Nov 29, 2019 10:01
[2019-11-29] MEDS ORDERED: Pantoprazole Inj IVP SCH (10:30)
--- NOTE | 2019-11-29 10:33 | NUR ---
NURSE NOTES: Still on fentanyl drip @300mcg/hr with RASS -2.
[2019-11-29] MEDS: Nitroglycerin Patch 0.4mg TDERMAL SCH (10:47)
--- NOTE | 2019-11-29 11:10 | Pre-Procedure Note/Attestation ---
Pre-Procedure Note/Attestation Complete Prior to Procedure Planned Procedure: not applicable Procedure Narrative: egd Indications for Procedure Pre-Operative Diagnosis: GIB Attestation I attest that I discussed the nature of the procedure; its benefits; risks and complications; and alternatives (and the risks and benefits of such alternatives ), prior to the procedure, with the patient (or the patient's legal sales solutions representative). I attest that, if there was a reasonable possibility of needing a blood transfusion, the patient (or the patient's legal sales solutions representative) was given the [facility] standardized written summary, pursuant to the [place] Blood Safety Act ([place] Health and Safety Code # 1645, as amended). I attest that I re-evaluated the patient just prior to the surgery and that there has been no change in the patient's H&P, except as documented below: Hunter Sierra MD Nov 29, 2019 11:10
--- NOTE | 2019-11-29 11:14 | NUR ---
[facility] NOTE Two daughters did not return calls. Paul informed ALYSSIA that there were 3 daughters, one and no other family members. ALYSSIA left a vm to ALYSSIA at [facility] [phone] for call back.
[2019-11-29] MEDS ORDERED: NS 500ML IVPB ONE (11:25)
[2019-11-29] MEDS ORDERED: Lidocaine 1% MPF 10mg/ml 5ml ONE (11:30)
[2019-11-29] MEDS ORDERED: LR 1000ml ONE (11:30)
[2019-11-29] MEDS ORDERED: Propofol 200mg/20ml IV ONE (11:30)
--- NOTE | 2019-11-29 11:32 | Pulmonolgy Critical Care Note ---
Critical Care - Asmt/Plan Problems: (1) Acute hypercapnic respiratory failure (2) Paroxysmal A-fib (3) Anemia, chronic renal failure (4) Acute on chronic renal insufficiency (5) Chronic hepatitis (6) Moderate pulmonary arterial systolic hypertension (7) Left ventricular ejection fraction greater than or equal to 40 percent (8) History of hypertension (9) Alzheimer's dementia (10) BPH (benign prostatic hyperplasia) Respiratory: monitor respiratory rate, adjust FIO2, CXR - thoracentesis of the right chest, ABG, other - pseudomonas in sputum Cardiac: continue to monitor HR/BP Renal: F/U I&O, keep IV fluid, check electrolytes Infectious Disease: check cultures, continue antibiotics Gastrointestinal: continue feedings/current rate Endocrine: monitor blood sugar Hematologic: monitor H/H Neurologic: PRN Ativan Affect: PRN ativan Time Spent (Minutes): 40 Notes Reviewed: group home worker, cardio, ID Discussed with: nurses, consultants, lead case managermanager icu - Objective Last 24 Hour Vital Signs Date Time Temp Pulse Resp B/P (MAP) Pulse Ox O2 Delivery O2 Flow Rate FiO2 11/29/19 10:47 162/91 11/29/19 10:37 75 16 30 11/29/19 10:30 79 15 162/91 (114) 97 11/29/19 10:00 78 17 141/86 (104) 98 11/29/19 09:30 89 17 165/97 (119) 97 11/29/19 09:03 105 172/106 11/29/19 09:03 105 172/106 11/29/19 09:00 97 16 172/106 (128) 98 11/29/19 08:40 99 16 30 11/29/19 08:30 87 16 170/107 (128) 98 11/29/19 08:00 98.2 85 16 151/88 (109) 99 11/29/19 07:31 12 Endotracheal Tube 100 11/29/19 07:30 98 11 162/91 (114) 100 11/29/19 07:15 81 16 30 11/29/19 07:00 82 16 126/81 (96) 100 11/29/19 06:30 91 16 155/105 (122) 100 11/29/19 06:29 93 15 11/29/19 06:03 147/85 11/29/19 06:00 98.7 97 15 147/85 (105) 98 11/29/19 06:00 18 Mechanical Ventilator 30 11/29/19 05:30 102 17 130/92 (105) 99 11/29/19 05:00 19 Mechanical Ventilator 30 11/29/19 05:00 99 16 156/113 (127) 100 11/29/19 05:00 98 16 30 11/29/19 04:30 103 17 152/92 (112) 99 11/29/19 04:00 98.7 99 16 154/82 (106) 99 11/29/19 04:00 100 11/29/19 04:00 Mechanical Ventilator Mechanical Ventilator Mechanical Ventilator 11/29/19 04:00 16 Mechanical Ventilator 30 11/29/19 04:00 30 11/29/19 03:58 16 Mechanical Ventilator 30 11/29/19 03:30 89 17 139/98 (112) 100 11/29/19 03:00 16 Mechanical Ventilator 30 11/29/19 03:00 84 16 141/85 (103) 99 11/29/19 03:00 86 16 30 11/29/19 02:30 84 16 146/84 (104) 100 11/29/19 02:00 87 16 147/88 (107) 99 11/29/19 02:00 15 Mechanical Ventilator 30 11/29/19 01:30 99 15 164/109 (127) 100 11/29/19 01:19 99 16 30 11/29/19 01:00 83 17 136/81 (99) 100 11/29/19 01:00 16 Mechanical Ventilator 30 11/29/19 00:30 84 16 145/88 (107) 100 11/29/19 00:08 16 Mechanical Ventilator 30 11/29/19 00:00 99.0 78 16 130/83 (99) 100 11/29/19 00:00 30 11/29/19 00:00 Mechanical Ventilator Mechanical Ventilator Mechanical Ventilator 11/29/19 00:00 87 11/29/19 00:00 16 Mechanical Ventilator 30 11/28/19 23:47 128/84 11/28/19 23:30 76 16 128/84 (99) 100 11/28/19 23:10 73 16 30 11/28/19 23:00 82 16 136/92 (107) 100 11/28/19 23:00 18 Mechanical Ventilator 30 11/28/19 22:30 78 14 121/76 (91) 100 11/28/19 22:00 16 Mechanical Ventilator 30 11/28/19 22:00 75 15 129/84 (99) 100 11/28/19 21:30 80 16 124/81 (95) 100 11/28/19 21:25 91 16 30 11/28/19 21:00 87 16 147/101 (116) 98 11/28/19 21:00 16 Mechanical Ventilator 30 11/28/19 20:30 94 16 139/86 (103) 97 11/28/19 20:27 100 138/84 11/28/19 20:12 14 Mechanical Ventilator 30 11/28/19 20:00 84 17 138/84 (102) 100 11/28/19 20:00 Mechanical Ventilator Mechanical Ventilator Mechanical Ventilator 11/28/19 20:00 92 11/28/19 20:00 30 11/28/19 19:30 98.9 88 16 130/79 (96) 100 11/28/19 19:14 108 16 30 11/28/19 19:00 13 Endotracheal Tube 30 11/28/19 19:00 87 0 123/75 (91) 100 11/28/19 18:21 145/78 11/28/19 18:01 91 16 145/78 (100) 93 11/28/19 18:00 17 Endotracheal Tube 30 11/28/19 17:29 102 16 30 11/28/19 17:00 78 16 159/81 (107) 99 11/28/19 17:00 16 Endotracheal Tube 30 11/28/19 16:49 98.7 11/28/19 16:00 98.7 90 15 109/74 (86) 99 11/28/19 16:00 Mechanical Ventilator Mechanical Ventilator Mechanical Ventilator 11/28/19 16:00 15 Endotracheal Tube 30 11/28/19 16:00 82 11/28/19 16:00 30 11/28/19 15:30 98.7 99 16 141/79 (99) 99 11/28/19 15:00 89 16 111/65 (80) 99 11/28/19 15:00 16 Endotracheal Tube 30 11/28/19 14:27 99 16 30 11/28/19 14:26 98.6 11/28/19 14:00 98 16 135/79 (97) 100 11/28/19 14:00 16 Endotracheal Tube 30 11/28/19 13:53 16 Endotracheal Tube 30 11/28/19 13:18 88 16 30 11/28/19 13:00 12 Endotracheal Tube 30 11/28/19 13:00 93 12 136/84 (101) 100 11/28/19 12:00 98.6 73 16 105/68 (80) 100 11/28/19 12:00 91 11/28/19 12:00 105/68 11/28/19 12:00 16 Endotracheal Tube 30 11/28/19 12:00 Mechanical Ventilator Mechanical Ventilator Mechanical Ventilator 11/28/19 12:00 30 Status: awake Condition: critical Neck: full ROM Heart: HR/BP stable Abdomen: soft, non-tender, active bowel sounds Extremities: no C/C/E Critical Care - Subjective ROS Limited/Unobtainable: Yes Condition: critical EKG Rhythm: Sinus Rhythm FI02: 30 Vent Support Breath Rate: 16 Vent Support Mode: AC Vent Tidal Volume: 550 Sputum Amount: Small PEEP: 0.0 PIP: 33 Tube Feeding Amount: 0 I&O: Intake and Output 11/28/19 11/29/19 19:00 07:00 Intake Total 1049.260 ml 786 ml Output Total 285 ml 715 ml Balance 764.260 ml 71 ml IV Total 459.260 ml 411 ml Tube Feeding 440 ml 0 ml Blood Product 375 ml Other 150 ml Output Urine Total 285 ml 715 ml # Bowel Movements 5 2 ET-Tube: 7.5 ET Position: 24 Labs: Laboratory Tests Test 11/28/19 21:25 11/29/19 04:00 White Blood Count 19.4 K/UL (4.8-10.8) H 21.3 K/UL (4.8-10.8) H Red Blood Count 2.26 M/UL (4.70-6.10) L 2.22 M/UL (4.70-6.10) L Hemoglobin 7.0 G/DL (14.2-18.0) L 6.5 G/DL (14.2-18.0) *L Hematocrit 20.6 % (42.0-52.0) L 19.6 % (42.0-52.0) L Mean Corpuscular Volume 91 FL (80-99) 89 FL (80-99) Mean Corpuscular Hemoglobin 28.6 PG (27.0-31.0) 29.4 PG (27.0-31.0) Mean Corpuscular Hemoglobin Concent 31.2 G/DL (32.0-36.0) L 33.3 G/DL (32.0-36.0) Red Cell Distribution Width 20.0 % (11.6-14.8) H 18.4 % (11.6-14.8) H Platelet Count 281 K/UL (150-450) 266 K/UL (150-450) Mean Platelet Volume 5.1 FL (6.5-10.1) L 4.4 FL (6.5-10.1) L Neutrophils (%) (Auto) % (45.0-75.0) % (45.0-75.0) Lymphocytes (%) (Auto) % (20.0-45.0) % (20.0-45.0) Monocytes (%) (Auto) % (1.0-10.0) % (1.0-10.0) Eosinophils (%) (Auto) % (0.0-3.0) % (0.0-3.0) Basophils (%) (Auto) % (0.0-2.0) % (0.0-2.0) Differential Total Cells Counted 100 100 Neutrophils % (Manual) 85 % (45-75) H 80 % (45-75) H Lymphocytes % (Manual) 8 % (20-45) L 15 % (20-45) L Monocytes % (Manual) 5 % (1-10) 3 % (1-10) Eosinophils % (Manual) 2 % (0-3) 2 % (0-3) Basophils % (Manual) 0 % (0-2) 0 % (0-2) Band Neutrophils 0 % (0-8) 0 % (0-8) Platelet Estimate Adequate Adequate Platelet Morphology Normal Normal Hypochromasia 3+ 3+ Anisocytosis 3+ 2+ Prothrombin Time 11.3 SEC (9.30-11.50) Prothromb Time International Ratio 1.1 (0.9-1.1) Activated Partial Thromboplast Time 33 SEC (23-33) Sodium Level 137 MMOL/L (136-145) Potassium Level 3.9 MMOL/L (3.5-5.1) Chloride Level 103 MMOL/L (98-107) Carbon Dioxide Level 26 MMOL/L (21-32) Anion Gap 8 mmol/L (5-15) Blood Urea Nitrogen 69 mg/dL (7-18) H Creatinine 5.2 MG/DL (0.55-1.30) H Estimat Glomerular Filtration Rate 12.8 mL/min (>60) Glucose Level 106 MG/DL (74-106) Uric Acid 7.7 MG/DL (2.6-7.2) H Calcium Level 9.2 MG/DL (8.5-10.1) Phosphorus Level 4.5 MG/DL (2.5-4.9) Magnesium Level 2.1 MG/DL (1.8-2.4) Total Bilirubin 0.3 MG/DL (0.2-1.0) Aspartate Amino Transf (AST/SGOT) 15 U/L (15-37) Alanine Aminotransferase (ALT/SGPT) 8 U/L (12-78) L Alkaline Phosphatase 47 U/L (46-116) Troponin I 0.008 ng/mL (0.000-0.056) C-Reactive Protein, Quantitative 5.4 mg/dL (0.00-0.90) H Pro-B-Type Natriuretic Peptide 00522 pg/mL (0-125) H Total Protein 6.2 G/DL (6.4-8.2) L Albumin 2.0 G/DL (3.4-5.0) L Globulin 4.2 g/dL Albumin/Globulin Ratio 0.5 (1.0-2.7) L Random Vancomycin Level 17.2 ug/mL Susannah Hightower MD Nov 29, 2019 11:29
--- NOTE | 2019-11-29 11:32 | Consultation ---
DATE OF CONSULTATION: 11/29/2019 CONSULTING PHYSICIAN: Hunter Sierra M.D. REFERRING PHYSICIAN: Claude Garza M.D. CHIEF COMPLAINT: GI bleeding. HISTORY OF PRESENT ILLNESS: Most of history per chart. The patient is intubated in the ICU, 83-year-old male, who was admitted to the hospital on November 20 with altered mental status and respiratory distress. The patient has been intubated in the ICU. The patient also was found to be in atrial fibrillation, started on intravenous heparin drip and the patient had evidence of active GI bleeding in the stool and significant drop in hemoglobin and hematocrit, so GI consult is requested for endoscopy. Past medical history, all the history is per chart. I cannot get anything from the patient. PAST MEDICAL HISTORY: 1. History of atrial fibrillation. 2. Hypertension. 3. Hyperglycemia. 4. Alzheimer's dementia. 5. BPH. 6. History of latent TB. 7. Hepatitis C. 8. Heart failure. PAST SURGICAL HISTORY: Unknown. ALLERGIES: To lisinopril, simvastatin, and terazosin. MEDICATIONS: Please see medication reconciliation list. FAMILY HISTORY: Noncontributory. REVIEW OF SYSTEMS: Unable to obtain. PHYSICAL EXAMINATION: GENERAL: The patient is intubated in ICU. VITAL SIGNS: Temperature is 98.7, pulse 105, respirations 16, and blood pressure 172/106. HEENT: Normocephalic and atraumatic. Sclerae, pale. NECK: Supple. No evidence of obvious lymphadenopathy. CARDIOVASCULAR: Tachy, irregular. Plus S1 and S2. LUNGS: Decreased breath sounds bilaterally and diffusely. ABDOMEN: Soft and nontender. No rebound. No guarding. No peritoneal sign. EXTREMITIES: No cyanosis. No clubbing. No edema. LABORATORY DATA: White count is 21,000, hemoglobin 6.5, hematocrit 19, and platelet count 266,000. Chem-7 - BUN is 69, creatinine is 5.2. ASSESSMENT: This is an 83-year-old male with respiratory failure, atrial fibrillation, renal failure, sepsis, and gastrointestinal bleed. PLAN: 1. Keep n.p.o. and start IV Protonix 80 mg bolus and then 8 mg per hour drip. 2. Transfuse to keep hemoglobin above 7. 3. Plan to do emergency endoscopy for today. I want to thank Dr. Garza for this kind referral. Hunter Sierra M.D. DR: JOHN JOB#: [id number] CC:
--- NOTE | 2019-11-29 11:50 | NUR ---
NURSE NOTES: Bed side EGD done. Keep NPO, No NGT or OGT for now.
--- NOTE | 2019-11-29 11:51 | Endoscopy Procedure Note ---
Endoscopy Procedure Note General Indication for Procedure: gib Procedures Performed: EGD Operative Findings/Diagnosis: blood cloth in the proximal stomach Specimen: none Pt Tolerated Procedure Well: Yes Estimated Blood Loss: none Anesthesia Anesthesiologist: victor m Anesthesia: MAC Inserted Devices Implant(s) used?: No GI Core Measures 50 yrs or older w/o bx or poly: Not Applicable 10yrs. F/U recommended: Not Applicable Hunter Sierra MD Nov 29, 2019 11:51
--- NOTE | 2019-11-29 11:55 | Anethesia Preoperative Eval ---
Anesthesia Pre-op PMH/ROS General Date of Evaluation: Nov 29, 2019 Time of Evaluation: 11:24 Anesthesiologist: Jose ASA Score: ASA 4 - Emegrency Mallampati Score Class I : Soft palate, uvula, fauces, pillars visible Class II: Soft palate, uvula, fauces visible Class III: Soft palate, base of uvula visible Class IV: Only hard plate visible Mallampati Classification: Class IV Surgeon: Mariela Diagnosis: Gi Bleed Surgical Procedure: EGD Anesthesia History: none Family History: no anesthesia problems Allergies: Coded Allergies: LISINOPRIL (Verified Allergy, Unknown, 11/21/19) SIMVASTATIN (Verified Allergy, Unknown, 11/21/19) TERAZOSIN (Verified Allergy, Unknown, 11/21/19) Medications: see eMAR Patient NPO?: Yes Past Medical History Cardiovascular: Reports: HTN, arrhythmia - AFib, other - CHF Gastrointestinal/Genitourinary: Reports: ESRD, other - BPH Neurologic/Psychiatric: Reports: dementia Hematology/Immune: Reports: anemia Other: obesity - BMI 33 Anesthesia Pre-op Phys. Exam Physician Exam Last Vital Signs Date Time Temp Pulse Resp B/P (MAP) Pulse Ox O2 Delivery O2 Flow Rate FiO2 11/29/19 10:47 162/91 11/29/19 10:37 75 16 30 11/29/19 10:30 97 11/29/19 08:00 98.2 11/29/19 07:31 Endotracheal Tube Constitutional: other Neurologic: other Cardiovascular: other Respiratory: other Gastrointestinal: other Airway Exam Mallampati Score: Class IV MO: limited ROM: limited Teeth: missing Anesthesia Pre-op A/P Labs Hematology Test 11/28/19 21:25 11/29/19 04:00 White Blood Count 19.4 K/UL (4.8-10.8) H 21.3 K/UL (4.8-10.8) H Red Blood Count 2.26 M/UL (4.70-6.10) L 2.22 M/UL (4.70-6.10) L Hemoglobin 7.0 G/DL (14.2-18.0) L 6.5 G/DL (14.2-18.0) *L Hematocrit 20.6 % (42.0-52.0) L 19.6 % (42.0-52.0) L Mean Corpuscular Volume 91 FL (80-99) 89 FL (80-99) Mean Corpuscular Hemoglobin 28.6 PG (27.0-31.0) 29.4 PG (27.0-31.0) Mean Corpuscular Hemoglobin Concent 31.2 G/DL (32.0-36.0) L 33.3 G/DL (32.0-36.0) Red Cell Distribution Width 20.0 % (11.6-14.8) H 18.4 % (11.6-14.8) H Platelet Count 281 K/UL (150-450) 266 K/UL (150-450) Mean Platelet Volume 5.1 FL (6.5-10.1) L 4.4 FL (6.5-10.1) L Neutrophils (%) (Auto) % (45.0-75.0) % (45.0-75.0) Lymphocytes (%) (Auto) % (20.0-45.0) % (20.0-45.0) Monocytes (%) (Auto) % (1.0-10.0) % (1.0-10.0) Eosinophils (%) (Auto) % (0.0-3.0) % (0.0-3.0) Basophils (%) (Auto) % (0.0-2.0) % (0.0-2.0) Differential Total Cells Counted 100 100 Neutrophils % (Manual) 85 % (45-75) H 80 % (45-75) H Lymphocytes % (Manual) 8 % (20-45) L 15 % (20-45) L Monocytes % (Manual) 5 % (1-10) 3 % (1-10) Eosinophils % (Manual) 2 % (0-3) 2 % (0-3) Basophils % (Manual) 0 % (0-2) 0 % (0-2) Band Neutrophils 0 % (0-8) 0 % (0-8) Platelet Estimate Adequate Adequate Platelet Morphology Normal Normal Hypochromasia 3+ 3+ Anisocytosis 3+ 2+ Coagulation Test 11/29/19 04:00 Prothrombin Time 11.3 SEC (9.30-11.50) Prothromb Time International Ratio 1.1 (0.9-1.1) Activated Partial Thromboplast Time 33 SEC (23-33) Chemistry Test 11/29/19 04:00 Sodium Level 137 MMOL/L (136-145) Potassium Level 3.9 MMOL/L (3.5-5.1) Chloride Level 103 MMOL/L (98-107) Carbon Dioxide Level 26 MMOL/L (21-32) Anion Gap 8 mmol/L (5-15) Blood Urea Nitrogen 69 mg/dL (7-18) H Creatinine 5.2 MG/DL (0.55-1.30) H Estimat Glomerular Filtration Rate 12.8 mL/min (>60) Glucose Level 106 MG/DL (74-106) Uric Acid 7.7 MG/DL (2.6-7.2) H Calcium Level 9.2 MG/DL (8.5-10.1) Phosphorus Level 4.5 MG/DL (2.5-4.9) Magnesium Level 2.1 MG/DL (1.8-2.4) Total Bilirubin 0.3 MG/DL (0.2-1.0) Aspartate Amino Transf (AST/SGOT) 15 U/L (15-37) Alanine Aminotransferase (ALT/SGPT) 8 U/L (12-78) L Alkaline Phosphatase 47 U/L (46-116) Troponin I 0.008 ng/mL (0.000-0.056) C-Reactive Protein, Quantitative 5.4 mg/dL (0.00-0.90) H Pro-B-Type Natriuretic Peptide 46282 pg/mL (0-125) H Total Protein 6.2 G/DL (6.4-8.2) L Albumin 2.0 G/DL (3.4-5.0) L Globulin 4.2 g/dL Albumin/Globulin Ratio 0.5 (1.0-2.7) L Risk Assessment & Plan Assessment: ASA 4E Plan: TIVA Status Change Before Surgery: Cash Ivan MD Nov 29, 2019 11:58
[2019-11-29] MEDS: Pantoprazole 80 MG in NS 250 ML IV SCH ×2 (11:57→21:30)
[2019-11-29] MEDS ORDERED: Metoclopramide 10mg/2ml Inj IVP PRN (12:00)
--- NOTE | 2019-11-29 12:01 | Immediate Post-Op Evaluation ---
Immediate Post-Op Evalulation Immediate Post-Op Evalulation Procedure: EGD Date of Evaluation: Nov 29, 2019 Time of Evaluation: 12:10 IV Fluids: 200 LR Blood Products: 20 Estimated Blood Loss: 0 Urinary Output: 0 Blood Pressure Systolic: 124 Blood Pressure Diastolic: 78 Pulse Rate: 82 Respiratory Rate: 20 - Mech Vent O2 Sat by Pulse Oximetry: 100 Temperature (Fahrenheit): 98.6 Pain Score (1-10): 0 Nausea: No Vomiting: No Complications 0 Patient Status: no response, patent, ventilated, none Hydration Status: adequate Cash Garcia MD Nov 29, 2019 12:03
--- NOTE | 2019-11-29 12:03 | 48 Hour Post Anesthesia Eval ---
Post Anesthesia Evaluation Procedure: EGD Date of Evaluation: Nov 29, 2019 Time of Evaluation: 14:23 Blood Pressure Systolic: 123 0: 71 Pulse Rate: 86 Respiratory Rate: 20 - Mech Vent Temperature (Fahrenheit): 98.4 O2 Sat by Pulse Oximetry: 100 Airway: patent Nausea: No Vomiting: No Pain Intensity: 0 Hydration Status: adequate Cardiopulmonary Status: Stable Mental Status/LOC: other - ICU, Intubated Follow-up Care/Observations: 0 Post-Anesthesia Complications: 0 Follow-up care needed: N/A Cash Garcia MD Nov 29, 2019 12:05
--- NOTE | 2019-11-29 12:45 | Procedure Note ---
DATE OF PROCEDURE: 11/29/2019 SURGEON: Hunter Sierra M.D. PROCEDURE: Upper endoscopy with biopsy. ANESTHESIA: Per Dr. Garcia. INSTRUMENT: Olympus adult flexible upper endoscope. INDICATION: Upper GI bleeding. REASON FOR PROCEDURE: The procedure, risks, benefits, and possible consequences, including hemorrhage, aspiration, perforation and infection, and alternative treatments, were explained to the patient/legal guardian by Dr. Hunter Sierra and the patient/legal guardian understood and accepted these risks. PROCEDURE IN DETAIL: After informed consent was obtained and the patient was adequately sedated, Olympus upper endoscope was advanced from mouth into the second portion of the duodenum and retroflexion was performed in the stomach. The patient had no obvious lesion in the esophagus, as of extension of the bleeding, but as soon as we passed the GE junction, in the cardia of the stomach, there was a large blood clot sitting there that we could not wash it away. We passed the scope all the way down to the duodenum. There was no bleeding in the duodenum. The rest of the exam grossly within normal limits. At this time given the bleeding seems to be stopped and the clot is covering and we tried to wash the clot as best as we could, but we could not remove it completely, so we could not see what sitting under the clot. At this time, the upper endoscope was retrieved and procedure was terminated. SUMMARY OF FINDINGS: Active upper GI bleeding most probably somewhere in the cardia of the stomach covered by the blood clot, stable. PLAN: Hold off on feeding at this time. Hold off on getting any medication, we removed the G-tube. We are recommending the patient to be on a Protonix drip. We will monitor hemoglobin and hematocrit every 8 hours. Transfuse to keep hemoglobin above 7. If the patient has signs and symptoms of recurrent bleeding, we are going to go back again tomorrow with endoscopy. I want to thank Dr. Garza, for this kind referral. Hunter Sierra M.D. DR: ALICIA JOB#: [id number] CC: Claude Garza M.D.; Fax#: [phone]
[2019-11-29] MEDS: Sucralfate 1gm tab NG SCH ×3 (13:30→20:52)
--- NOTE | 2019-11-29 13:32 | Nephrology Progress Note ---
Assessment/Plan Problem List: (1) Acute on chronic renal insufficiency Assessment: Serum creatinine gradually decreasing (2) Acute hypercapnic respiratory failure (3) Anemia in chronic kidney disease (CKD) (4) BPH (benign prostatic hyperplasia) Assessment Acute renal failure Possible underlying chronic kidney failure Hyperkalemia Anemia other conditions: (1) Acute hypercapnic respiratory failure (2) Paroxysmal A-fib (3) Anemia, chronic renal failure (4) History of hypertension (5) Alzheimer's dementia (6) Chronic hepatitis (7) BPH (benign prostatic hyperplasia) Plan Patient n.p.o. On Protonix drip, patient had GI bleed and was transfused 2 units of packed RBCs Will stop aspirin We will change blood pressure medication to IV Carafate through NG tube Per GI Slow hydration Nitrate Trial of Zaroxolyn as chest x-ray indicates worsening CHF as needed Monitor intake and output Monitor renal parameters Avoid nephrotoxic's Kidney ultrasound results noted indicative of chronicity 2D echocardiogram result noted ejection fraction 55% Anemia work-up noted Per orders Discussed with Dr. Zaidi Subjective ROS Limited/Unobtainable: Yes Objective Objective Last 24 Hour Vital Signs Date Time Temp Pulse Resp B/P (MAP) Pulse Ox O2 Delivery O2 Flow Rate FiO2 11/29/19 12:47 92 16 30 11/29/19 12:45 16 Mechanical Ventilator 30 11/29/19 12:30 98.7 97 17 137/79 (98) 99 11/29/19 12:03 86 20 100 11/29/19 12:01 82 20 100 11/29/19 12:00 30 11/29/19 12:00 Mechanical Ventilator Mechanical Ventilator Mechanical Ventilator 11/29/19 12:00 95 17 129/98 (108) 99 11/29/19 12:00 92 11/29/19 11:57 99/85 11/29/19 11:30 89 16 77/43 (54) 99 11/29/19 11:00 80 16 162/91 (114) 99 11/29/19 10:47 162/91 11/29/19 10:37 75 16 30 11/29/19 10:30 79 15 162/91 (114) 97 11/29/19 10:00 78 17 141/86 (104) 98 11/29/19 09:30 89 17 165/97 (119) 97 11/29/19 09:03 105 172/106 11/29/19 09:03 105 172/106 11/29/19 09:00 97 16 172/106 (128) 98 11/29/19 08:40 99 16 30 11/29/19 08:30 87 16 170/107 (128) 98 11/29/19 08:00 Mechanical Ventilator Mechanical Ventilator Mechanical Ventilator 11/29/19 08:00 98.2 85 16 151/88 (109) 99 11/29/19 08:00 82 11/29/19 08:00 30 11/29/19 07:31 12 Endotracheal Tube 100 11/29/19 07:30 98 11 162/91 (114) 100 11/29/19 07:15 81 16 30 11/29/19 07:00 82 16 126/81 (96) 100 11/29/19 06:30 91 16 155/105 (122) 100 11/29/19 06:29 93 15 11/29/19 06:03 147/85 11/29/19 06:00 98.7 97 15 147/85 (105) 98 11/29/19 06:00 18 Mechanical Ventilator 30 11/29/19 05:30 102 17 130/92 (105) 99 11/29/19 05:00 19 Mechanical Ventilator 30 11/29/19 05:00 99 16 156/113 (127) 100 11/29/19 05:00 98 16 30 11/29/19 04:30 103 17 152/92 (112) 99 11/29/19 04:00 98.7 99 16 154/82 (106) 99 11/29/19 04:00 100 11/29/19 04:00 Mechanical Ventilator Mechanical Ventilator Mechanical Ventilator 11/29/19 04:00 16 Mechanical Ventilator 30 11/29/19 04:00 30 11/29/19 03:58 16 Mechanical Ventilator 30 11/29/19 03:30 89 17 139/98 (112) 100 11/29/19 03:00 16 Mechanical Ventilator 30 11/29/19 03:00 84 16 141/85 (103) 99 11/29/19 03:00 86 16 30 11/29/19 02:30 84 16 146/84 (104) 100 11/29/19 02:00 87 16 147/88 (107) 99 11/29/19 02:00 15 Mechanical Ventilator 30 11/29/19 01:30 99 15 164/109 (127) 100 11/29/19 01:19 99 16 30 11/29/19 01:00 83 17 136/81 (99) 100 11/29/19 01:00 16 Mechanical Ventilator 30 11/29/19 00:30 84 16 145/88 (107) 100 11/29/19 00:08 16 Mechanical Ventilator 30 11/29/19 00:00 99.0 78 16 130/83 (99) 100 11/29/19 00:00 30 11/29/19 00:00 Mechanical Ventilator Mechanical Ventilator Mechanical Ventilator 11/29/19 00:00 87 11/29/19 00:00 16 Mechanical Ventilator 30 11/28/19 23:47 128/84 11/28/19 23:30 76 16 128/84 (99) 100 11/28/19 23:10 73 16 30 11/28/19 23:00 82 16 136/92 (107) 100 11/28/19 23:00 18 Mechanical Ventilator 30 11/28/19 22:30 78 14 121/76 (91) 100 11/28/19 22:00 16 Mechanical Ventilator 30 11/28/19 22:00 75 15 129/84 (99) 100 11/28/19 21:30 80 16 124/81 (95) 100 11/28/19 21:25 91 16 30 11/28/19 21:00 87 16 147/101 (116) 98 11/28/19 21:00 16 Mechanical Ventilator 30 11/28/19 20:30 94 16 139/86 (103) 97 11/28/19 20:27 100 138/84 11/28/19 20:12 14 Mechanical Ventilator 30 11/28/19 20:00 84 17 138/84 (102) 100 11/28/19 20:00 Mechanical Ventilator Mechanical Ventilator Mechanical Ventilator 11/28/19 20:00 92 11/28/19 20:00 30 11/28/19 19:30 98.9 88 16 130/79 (96) 100 11/28/19 19:14 108 16 30 11/28/19 19:00 13 Endotracheal Tube 30 11/28/19 19:00 87 0 123/75 (91) 100 11/28/19 18:21 145/78 11/28/19 18:01 91 16 145/78 (100) 93 11/28/19 18:00 17 Endotracheal Tube 30 11/28/19 17:29 102 16 30 11/28/19 17:00 78 16 159/81 (107) 99 11/28/19 17:00 16 Endotracheal Tube 30 11/28/19 16:49 98.7 11/28/19 16:00 98.7 90 15 109/74 (86) 99 11/28/19 16:00 Mechanical Ventilator Mechanical Ventilator Mechanical Ventilator 11/28/19 16:00 15 Endotracheal Tube 30 11/28/19 16:00 82 11/28/19 16:00 30 11/28/19 15:30 98.7 99 16 141/79 (99) 99 11/28/19 15:00 89 16 111/65 (80) 99 11/28/19 15:00 16 Endotracheal Tube 30 11/28/19 14:27 99 16 30 11/28/19 14:26 98.6 11/28/19 14:00 98 16 135/79 (97) 100 11/28/19 14:00 16 Endotracheal Tube 30 11/28/19 13:53 16 Endotracheal Tube 30 Intake and Output 11/28/19 11/29/19 19:00 07:00 Intake Total 1049.260 ml 786 ml Output Total 285 ml 795 ml Balance 764.260 ml -9 ml IV Total 459.260 ml 411 ml Tube Feeding 440 ml 0 ml Blood Product 375 ml Other 150 ml Output Urine Total 285 ml 795 ml # Bowel Movements 5 2 Laboratory Tests 11/28/19 21:25: White Blood Count 19.4H, Red Blood Count 2.26L, Hemoglobin 7.0L, Hematocrit 20.6L, Mean Corpuscular Volume 91, Mean Corpuscular Hemoglobin 28.6, Mean Corpuscular Hemoglobin Concent 31.2L, Red Cell Distribution Width 20.0H, Platelet Count 281, Mean Platelet Volume 5.1L, Neutrophils (%) (Auto) , Lymphocytes (%) (Auto) , Monocytes (%) (Auto) , Eosinophils (%) (Auto) , Basophils (%) (Auto) , Differential Total Cells Counted 100, Neutrophils % ( Manual) 85H, Lymphocytes % (Manual) 8L, Monocytes % (Manual) 5, Eosinophils % ( Manual) 2, Basophils % (Manual) 0, Band Neutrophils 0, Platelet Estimate Adequate, Platelet Morphology Normal, Hypochromasia 3+, Anisocytosis 3+ 11/29/19 04:00: White Blood Count 21.3H, Red Blood Count 2.22L, Hemoglobin 6.5*L, Hematocrit 19.6L, Mean Corpuscular Volume 89, Mean Corpuscular Hemoglobin 29.4, Mean Corpuscular Hemoglobin Concent 33.3, Red Cell Distribution Width 18.4H, Platelet Count 266, Mean Platelet Volume 4.4L, Neutrophils (%) (Auto) , Lymphocytes (%) (Auto) , Monocytes (%) (Auto) , Eosinophils (%) (Auto) , Basophils (%) (Auto) , Differential Total Cells Counted 100, Neutrophils % ( Manual) 80H, Lymphocytes % (Manual) 15L, Monocytes % (Manual) 3, Eosinophils % ( Manual) 2, Basophils % (Manual) 0, Band Neutrophils 0, Platelet Estimate Adequate, Platelet Morphology Normal, Hypochromasia 3+, Anisocytosis 2+, Prothrombin Time 11.3, Prothromb Time International Ratio 1.1, Activated Partial Thromboplast Time 33, Sodium Level 137, Potassium Level 3.9, Chloride Level 103, Carbon Dioxide Level 26, Anion Gap 8, Blood Urea Nitrogen 69H, Creatinine 5.2H, Estimat Glomerular Filtration Rate 12.8, Glucose Level 106, Uric Acid 7.7H, Calcium Level 9.2, Phosphorus Level 4.5, Magnesium Level 2.1, Total Bilirubin 0.3, Aspartate Amino Transf (AST/SGOT) 15, Alanine Aminotransferase (ALT/SGPT) 8L, Alkaline Phosphatase 47, Troponin I 0.008, C- Reactive Protein, Quantitative 5.4H, Pro-B-Type Natriuretic Peptide 79067N, Total Protein 6.2L, Albumin 2.0L, Globulin 4.2, Albumin/Globulin Ratio 0.5L, Random Vancomycin Level 17.2 Height (Feet): 5 Height (Inches): 10.00 Weight (Pounds): 212 General Appearance: no apparent distress EENT: other Cardiovascular: tachycardia - Remains intubated on ventilator Respiratory/Chest: decreased breath sounds Abdomen: distended Objective No change Reynold Ellison MD Nov 29, 2019 13:31
--- NOTE | 2019-11-29 14:02 | NUR ---
NURSE NOTES: Repositioned patient. Oral care provided. Still on fentanyl 300mcg/hr with RASS score -2.
--- NOTE | 2019-11-29 14:48 | Infectious Diseases Prog Note ---
Assessment/Plan Assessment/Plan ASSESSMENT: This is an 83-year-old male. Afebrile Leukocytosis ( 2nd to GI bleed) Doubt Pneum (at this time) - Respiratory failure: m/l 2/2 CHF, elevated BNP) - Sp Cx PSA Probable UTI - UCX : PSA and ESBL E Coli GPC Bacteremia - BCx 11/21/19 Staph warneri 2/2 sets - BCx 11/22/19 - Neg - 2D Echo : No Veg SP EGD Congestive heart failure. Atrial fibrillation. Altered mental status. Urinary tract infection. Renal failure. Hypertension. Alzheimer's dementia. BPH P: cont IV Vanco # 8 Cont pt on IV Merrem # 6/10 , add Amikacin # 1/ 7 ( Urine coverage ) 11/23 Sp Rocephin # 4 Monitor CBC, CMP Monitor CXR Rsp support GI Follow Subjective Allergies: Coded Allergies: LISINOPRIL (Verified Allergy, Unknown, 11/21/19) SIMVASTATIN (Verified Allergy, Unknown, 11/21/19) TERAZOSIN (Verified Allergy, Unknown, 11/21/19) Subjective on vent Objective Vital Signs Last 24 Hour Vital Signs Date Time Temp Pulse Resp B/P (MAP) Pulse Ox O2 Delivery O2 Flow Rate FiO2 11/29/19 14:00 99 17 138/85 (102) 100 11/29/19 14:00 16 Mechanical Ventilator 30 11/29/19 13:30 92 17 125/70 (88) 100 11/29/19 13:00 103 17 145/91 (109) 100 11/29/19 13:00 16 Mechanical Ventilator 30 11/29/19 12:47 92 16 30 11/29/19 12:45 16 Mechanical Ventilator 30 11/29/19 12:30 98.7 97 17 137/79 (98) 99 11/29/19 12:03 86 20 100 11/29/19 12:01 82 20 100 11/29/19 12:00 30 11/29/19 12:00 Mechanical Ventilator Mechanical Ventilator Mechanical Ventilator 11/29/19 12:00 95 17 129/98 (108) 99 11/29/19 12:00 92 11/29/19 11:57 99/85 11/29/19 11:30 89 16 77/43 (54) 99 11/29/19 11:00 80 16 162/91 (114) 99 11/29/19 11:00 16 Mechanical Ventilator 30 11/29/19 10:47 162/91 11/29/19 10:37 75 16 30 11/29/19 10:30 79 15 162/91 (114) 97 11/29/19 10:00 78 17 141/86 (104) 98 11/29/19 10:00 16 Mechanical Ventilator 30 11/29/19 09:30 89 17 165/97 (119) 97 11/29/19 09:03 105 172/106 11/29/19 09:03 105 172/106 11/29/19 09:00 97 16 172/106 (128) 98 11/29/19 09:00 16 Mechanical Ventilator 30 11/29/19 08:40 99 16 30 11/29/19 08:30 87 16 170/107 (128) 98 11/29/19 08:00 Mechanical Ventilator Mechanical Ventilator Mechanical Ventilator 11/29/19 08:00 16 Mechanical Ventilator 30 11/29/19 08:00 98.2 85 16 151/88 (109) 99 11/29/19 08:00 82 11/29/19 08:00 30 11/29/19 07:31 12 Endotracheal Tube 100 11/29/19 07:30 98 11 162/91 (114) 100 11/29/19 07:15 81 16 30 11/29/19 07:00 16 Mechanical Ventilator 30 11/29/19 07:00 82 16 126/81 (96) 100 11/29/19 06:30 91 16 155/105 (122) 100 11/29/19 06:29 93 15 11/29/19 06:03 147/85 11/29/19 06:00 98.7 97 15 147/85 (105) 98 11/29/19 06:00 18 Mechanical Ventilator 30 11/29/19 05:30 102 17 130/92 (105) 99 11/29/19 05:00 19 Mechanical Ventilator 30 11/29/19 05:00 99 16 156/113 (127) 100 11/29/19 05:00 98 16 30 11/29/19 04:30 103 17 152/92 (112) 99 11/29/19 04:00 98.7 99 16 154/82 (106) 99 11/29/19 04:00 100 11/29/19 04:00 Mechanical Ventilator Mechanical Ventilator Mechanical Ventilator 11/29/19 04:00 16 Mechanical Ventilator 30 11/29/19 04:00 30 11/29/19 03:58 16 Mechanical Ventilator 30 11/29/19 03:30 89 17 139/98 (112) 100 11/29/19 03:00 16 Mechanical Ventilator 30 11/29/19 03:00 84 16 141/85 (103) 99 11/29/19 03:00 86 16 30 11/29/19 02:30 84 16 146/84 (104) 100 11/29/19 02:00 87 16 147/88 (107) 99 11/29/19 02:00 15 Mechanical Ventilator 30 11/29/19 01:30 99 15 164/109 (127) 100 11/29/19 01:19 99 16 30 11/29/19 01:00 83 17 136/81 (99) 100 11/29/19 01:00 16 Mechanical Ventilator 30 11/29/19 00:30 84 16 145/88 (107) 100 11/29/19 00:08 16 Mechanical Ventilator 30 11/29/19 00:00 99.0 78 16 130/83 (99) 100 11/29/19 00:00 30 11/29/19 00:00 Mechanical Ventilator Mechanical Ventilator Mechanical Ventilator 11/29/19 00:00 87 11/29/19 00:00 16 Mechanical Ventilator 30 11/28/19 23:47 128/84 11/28/19 23:30 76 16 128/84 (99) 100 11/28/19 23:10 73 16 30 11/28/19 23:00 82 16 136/92 (107) 100 11/28/19 23:00 18 Mechanical Ventilator 30 11/28/19 22:30 78 14 121/76 (91) 100 11/28/19 22:00 16 Mechanical Ventilator 30 11/28/19 22:00 75 15 129/84 (99) 100 11/28/19 21:30 80 16 124/81 (95) 100 11/28/19 21:25 91 16 30 11/28/19 21:00 87 16 147/101 (116) 98 11/28/19 21:00 16 Mechanical Ventilator 30 11/28/19 20:30 94 16 139/86 (103) 97 11/28/19 20:27 100 138/84 11/28/19 20:12 14 Mechanical Ventilator 30 11/28/19 20:00 84 17 138/84 (102) 100 11/28/19 20:00 Mechanical Ventilator Mechanical Ventilator Mechanical Ventilator 11/28/19 20:00 92 11/28/19 20:00 30 11/28/19 19:30 98.9 88 16 130/79 (96) 100 11/28/19 19:14 108 16 30 11/28/19 19:00 13 Endotracheal Tube 30 11/28/19 19:00 87 0 123/75 (91) 100 11/28/19 18:21 145/78 11/28/19 18:01 91 16 145/78 (100) 93 11/28/19 18:00 17 Endotracheal Tube 30 11/28/19 17:29 102 16 30 11/28/19 17:00 78 16 159/81 (107) 99 11/28/19 17:00 16 Endotracheal Tube 30 11/28/19 16:49 98.7 11/28/19 16:00 98.7 90 15 109/74 (86) 99 11/28/19 16:00 Mechanical Ventilator Mechanical Ventilator Mechanical Ventilator 11/28/19 16:00 15 Endotracheal Tube 30 11/28/19 16:00 82 11/28/19 16:00 30 11/28/19 15:30 98.7 99 16 141/79 (99) 99 11/28/19 15:00 89 16 111/65 (80) 99 11/28/19 15:00 16 Endotracheal Tube 30 Height (Feet): 5 Height (Inches): 10.00 Weight (Pounds): 212 HEENT: anicteric Respiratory/Chest: normal breath sounds Cardiovascular: regular rhythm Abdomen: no organomegaly Laboratory Tests Test 11/28/19 21:25 11/29/19 04:00 White Blood Count 19.4 K/UL (4.8-10.8) H 21.3 K/UL (4.8-10.8) H Red Blood Count 2.26 M/UL (4.70-6.10) L 2.22 M/UL (4.70-6.10) L Hemoglobin 7.0 G/DL (14.2-18.0) L 6.5 G/DL (14.2-18.0) *L Hematocrit 20.6 % (42.0-52.0) L 19.6 % (42.0-52.0) L Mean Corpuscular Volume 91 FL (80-99) 89 FL (80-99) Mean Corpuscular Hemoglobin 28.6 PG (27.0-31.0) 29.4 PG (27.0-31.0) Mean Corpuscular Hemoglobin Concent 31.2 G/DL (32.0-36.0) L 33.3 G/DL (32.0-36.0) Red Cell Distribution Width 20.0 % (11.6-14.8) H 18.4 % (11.6-14.8) H Platelet Count 281 K/UL (150-450) 266 K/UL (150-450) Mean Platelet Volume 5.1 FL (6.5-10.1) L 4.4 FL (6.5-10.1) L Neutrophils (%) (Auto) % (45.0-75.0) % (45.0-75.0) Lymphocytes (%) (Auto) % (20.0-45.0) % (20.0-45.0) Monocytes (%) (Auto) % (1.0-10.0) % (1.0-10.0) Eosinophils (%) (Auto) % (0.0-3.0) % (0.0-3.0) Basophils (%) (Auto) % (0.0-2.0) % (0.0-2.0) Differential Total Cells Counted 100 100 Neutrophils % (Manual) 85 % (45-75) H 80 % (45-75) H Lymphocytes % (Manual) 8 % (20-45) L 15 % (20-45) L Monocytes % (Manual) 5 % (1-10) 3 % (1-10) Eosinophils % (Manual) 2 % (0-3) 2 % (0-3) Basophils % (Manual) 0 % (0-2) 0 % (0-2) Band Neutrophils 0 % (0-8) 0 % (0-8) Platelet Estimate Adequate Adequate Platelet Morphology Normal Normal Hypochromasia 3+ 3+ Anisocytosis 3+ 2+ Prothrombin Time 11.3 SEC (9.30-11.50) Prothromb Time International Ratio 1.1 (0.9-1.1) Activated Partial Thromboplast Time 33 SEC (23-33) Sodium Level 137 MMOL/L (136-145) Potassium Level 3.9 MMOL/L (3.5-5.1) Chloride Level 103 MMOL/L (98-107) Carbon Dioxide Level 26 MMOL/L (21-32) Anion Gap 8 mmol/L (5-15) Blood Urea Nitrogen 69 mg/dL (7-18) H Creatinine 5.2 MG/DL (0.55-1.30) H Estimat Glomerular Filtration Rate 12.8 mL/min (>60) Glucose Level 106 MG/DL (74-106) Uric Acid 7.7 MG/DL (2.6-7.2) H Calcium Level 9.2 MG/DL (8.5-10.1) Phosphorus Level 4.5 MG/DL (2.5-4.9) Magnesium Level 2.1 MG/DL (1.8-2.4) Total Bilirubin 0.3 MG/DL (0.2-1.0) Aspartate Amino Transf (AST/SGOT) 15 U/L (15-37) Alanine Aminotransferase (ALT/SGPT) 8 U/L (12-78) L Alkaline Phosphatase 47 U/L (46-116) Troponin I 0.008 ng/mL (0.000-0.056) C-Reactive Protein, Quantitative 5.4 mg/dL (0.00-0.90) H Pro-B-Type Natriuretic Peptide 43450 pg/mL (0-125) H Total Protein 6.2 G/DL (6.4-8.2) L Albumin 2.0 G/DL (3.4-5.0) L Globulin 4.2 g/dL Albumin/Globulin Ratio 0.5 (1.0-2.7) L Random Vancomycin Level 17.2 ug/mL Current Medications Medications (Trade) Dose Ordered Sig/Cyndi Route PRN Reason Start Time Stop Time Status Last Admin Dose Admin Acetaminophen (Tylenol) 650 mg Q4H PRN NG Fever 11/21/19 13:00 12/21/19 08:14 11/28/19 16:19 Amlodipine Besylate (Norvasc) 2.5 mg DAILY NG 11/27/19 12:45 12/27/19 12:44 11/29/19 09:03 Chlorhexidine Gluconate (Corrie-Hex 2%) 1 applic DAILY@1999 TOPIC 11/27/19 20:00 02/25/20 19:59 11/28/19 20:10 Dextrose (Dextrose 50%) 25 ml Q30M PRN IV Hypoglycemia 11/21/19 08:15 02/19/20 08:14 Dextrose (Dextrose 50%) 50 ml Q30M PRN IV Hypoglycemia 11/21/19 08:15 02/19/20 08:14 Docusate Sodium (Colace) 100 mg THREE TIMES A DAY NG 11/21/19 13:00 12/21/19 12:59 11/29/19 09:02 Fentanyl Citrate 1000 mcg/Sodium Chloride 100 ml @ 0 mls/hr Q24H IV 11/26/19 21:00 11/29/19 16:00 11/29/19 12:45 Fentanyl Citrate 2500 mcg/Sodium Chloride 250 ml @ 0 mls/hr Q24H IV 11/29/19 16:00 12/06/19 15:59 Heparin Sodium/ Sodium Chloride (Heparin 1000 units/500ml Premix) 1,000 unit ONCE PRN IV PICC PLACEMENT 11/27/19 16:30 11/29/19 16:29 Hydralazine HCl (Apresoline) 10 mg Q4H PRN IV BP over 160 sys 11/29/19 13:30 02/27/20 13:29 Lidocaine HCl (Xylocaine 1% 30ml) 30 ml ONCE PRN INJ PICC PLACEMENT 11/27/19 16:30 11/29/19 16:29 Meropenem 500 mg/ Sodium Chloride 55 ml @ 110 mls/hr Q12HR IVPB 11/25/19 14:00 11/30/19 13:59 11/29/19 09:04 Metoclopramide HCl (Reglan) 5 mg Q8H PRN IVP Nausea & Vomiting 2ND CHOICE 11/29/19 12:00 12/29/19 11:59 Metoprolol Tartrate (Lopressor) 50 mg Q12HR NG 11/28/19 21:00 02/19/20 20:59 11/29/19 09:03 Nitroglycerin (Ntg) 1 patch Q24H TDERMAL 11/22/19 11:00 12/22/19 10:59 11/29/19 10:47 Ondansetron HCl (Zofran) 4 mg Q6H PRN IVP Nausea & Vomiting 11/21/19 08:15 12/21/19 08:14 Pantoprazole 80 mg/Sodium Chloride 250 ml @ 25 mls/hr Q10H IV 11/29/19 11:30 12/29/19 11:29 11/29/19 11:57 Polyethylene Glycol (Miralax) 17 gm DAILYPRN PRN NG Constipation 11/21/19 13:00 12/21/19 08:14 Sucralfate (Carafate) 1 gm FOUR TIMES A DAY NG 11/29/19 13:30 02/27/20 13:29 Vancomycin HCl (Vanco rx to dose) 1 ea DAILY PRN MISC Per rx protocol 11/22/19 14:45 12/22/19 14:44 Mike Hicks MD Nov 29, 2019 14:48
[2019-11-29] MEDS ORDERED: Amikacin Rx to dose MISC PRN (15:00)
[2019-11-29] MEDS: fentaNYL Citrate 2500mcg in NS 250ml IV SCH (16:22)
--- NOTE | 2019-11-29 16:27 | Cardiology Progress Note ---
Assessment/Plan Assessment/Plan 1. Permanent versus paroxysmal episodes of atrial fibrillation. 2. Tachycardia. 3. Renal insufficiency. 4. Obstructive uropathy. 5. History of hypertension. 6. Prostatic hypertrophy. 7. History of latent tuberculosis. 8. History of heart failure. 9. History of hepatitis C infection. 10. Respiratory failure with respiratory acidosis, now on vent 11. melanotic stool 12 larg gastric clot cxr personally reviewed tele personally reviewed ekg reviewed bp seems no taking po meds torp abn likely due to renal insuf off heparin dur to gi bleed s/p 3 unit f prbc will repat cbc now bp is fine d/w rn need to be in neg fluid balance rate control with iv bb egd not successfull dueto larg clot present in the ge junction Subjective ROS Limited/Unobtainable: Yes Subjective vent isolation Objective Last 24 Hour Vital Signs Date Time Temp Pulse Resp B/P (MAP) Pulse Ox O2 Delivery O2 Flow Rate FiO2 11/29/19 16:22 16 Mechanical Ventilator 30 11/29/19 16:00 100 11/29/19 15:04 89 16 30 11/29/19 14:00 99 17 138/85 (102) 100 11/29/19 14:00 16 Mechanical Ventilator 30 11/29/19 13:30 92 17 125/70 (88) 100 11/29/19 13:00 103 17 145/91 (109) 100 11/29/19 13:00 16 Mechanical Ventilator 30 11/29/19 12:47 92 16 30 11/29/19 12:45 16 Mechanical Ventilator 30 11/29/19 12:30 98.7 97 17 137/79 (98) 99 11/29/19 12:03 86 20 100 11/29/19 12:01 82 20 100 11/29/19 12:00 30 11/29/19 12:00 Mechanical Ventilator Mechanical Ventilator Mechanical Ventilator 11/29/19 12:00 95 17 129/98 (108) 99 11/29/19 12:00 92 11/29/19 11:57 99/85 11/29/19 11:30 89 16 77/43 (54) 99 11/29/19 11:00 80 16 162/91 (114) 99 11/29/19 11:00 16 Mechanical Ventilator 30 11/29/19 10:47 162/91 11/29/19 10:37 75 16 30 11/29/19 10:30 79 15 162/91 (114) 97 11/29/19 10:00 78 17 141/86 (104) 98 11/29/19 10:00 16 Mechanical Ventilator 30 11/29/19 09:30 89 17 165/97 (119) 97 11/29/19 09:03 105 172/106 11/29/19 09:03 105 172/106 11/29/19 09:00 97 16 172/106 (128) 98 11/29/19 09:00 16 Mechanical Ventilator 30 11/29/19 08:40 99 16 30 11/29/19 08:30 87 16 170/107 (128) 98 11/29/19 08:00 Mechanical Ventilator Mechanical Ventilator Mechanical Ventilator 11/29/19 08:00 16 Mechanical Ventilator 30 11/29/19 08:00 98.2 85 16 151/88 (109) 99 11/29/19 08:00 82 11/29/19 08:00 30 11/29/19 07:31 12 Endotracheal Tube 100 11/29/19 07:30 98 11 162/91 (114) 100 11/29/19 07:15 81 16 30 11/29/19 07:00 16 Mechanical Ventilator 30 11/29/19 07:00 82 16 126/81 (96) 100 11/29/19 06:30 91 16 155/105 (122) 100 11/29/19 06:29 93 15 11/29/19 06:03 147/85 11/29/19 06:00 98.7 97 15 147/85 (105) 98 11/29/19 06:00 18 Mechanical Ventilator 30 11/29/19 05:30 102 17 130/92 (105) 99 11/29/19 05:00 19 Mechanical Ventilator 30 11/29/19 05:00 99 16 156/113 (127) 100 11/29/19 05:00 98 16 30 11/29/19 04:30 103 17 152/92 (112) 99 11/29/19 04:00 98.7 99 16 154/82 (106) 99 11/29/19 04:00 100 11/29/19 04:00 Mechanical Ventilator Mechanical Ventilator Mechanical Ventilator 11/29/19 04:00 16 Mechanical Ventilator 30 11/29/19 04:00 30 11/29/19 03:58 16 Mechanical Ventilator 30 11/29/19 03:30 89 17 139/98 (112) 100 11/29/19 03:00 16 Mechanical Ventilator 30 11/29/19 03:00 84 16 141/85 (103) 99 11/29/19 03:00 86 16 30 11/29/19 02:30 84 16 146/84 (104) 100 11/29/19 02:00 87 16 147/88 (107) 99 11/29/19 02:00 15 Mechanical Ventilator 30 11/29/19 01:30 99 15 164/109 (127) 100 11/29/19 01:19 99 16 30 11/29/19 01:00 83 17 136/81 (99) 100 11/29/19 01:00 16 Mechanical Ventilator 30 11/29/19 00:30 84 16 145/88 (107) 100 11/29/19 00:08 16 Mechanical Ventilator 30 11/29/19 00:00 99.0 78 16 130/83 (99) 100 11/29/19 00:00 30 11/29/19 00:00 Mechanical Ventilator Mechanical Ventilator Mechanical Ventilator 11/29/19 00:00 87 11/29/19 00:00 16 Mechanical Ventilator 30 11/28/19 23:47 128/84 11/28/19 23:30 76 16 128/84 (99) 100 11/28/19 23:10 73 16 30 11/28/19 23:00 82 16 136/92 (107) 100 11/28/19 23:00 18 Mechanical Ventilator 30 11/28/19 22:30 78 14 121/76 (91) 100 11/28/19 22:00 16 Mechanical Ventilator 30 11/28/19 22:00 75 15 129/84 (99) 100 11/28/19 21:30 80 16 124/81 (95) 100 11/28/19 21:25 91 16 30 11/28/19 21:00 87 16 147/101 (116) 98 11/28/19 21:00 16 Mechanical Ventilator 30 11/28/19 20:30 94 16 139/86 (103) 97 11/28/19 20:27 100 138/84 11/28/19 20:12 14 Mechanical Ventilator 30 11/28/19 20:00 84 17 138/84 (102) 100 11/28/19 20:00 Mechanical Ventilator Mechanical Ventilator Mechanical Ventilator 11/28/19 20:00 92 11/28/19 20:00 30 11/28/19 19:30 98.9 88 16 130/79 (96) 100 11/28/19 19:14 108 16 30 11/28/19 19:00 13 Endotracheal Tube 30 11/28/19 19:00 87 0 123/75 (91) 100 11/28/19 18:21 145/78 11/28/19 18:01 91 16 145/78 (100) 93 11/28/19 18:00 17 Endotracheal Tube 30 11/28/19 17:29 102 16 30 11/28/19 17:00 78 16 159/81 (107) 99 11/28/19 17:00 16 Endotracheal Tube 30 11/28/19 16:49 98.7 General Appearance: no apparent distress, on vent, patient on isolation Neck: supple Cardiovascular: irregularly irregular Respiratory/Chest: lungs clear Abdomen: normal bowel sounds, non tender, soft Extremities: no swelling Intake and Output 11/28/19 11/29/19 19:00 07:00 Intake Total 1049.260 ml 796 ml Output Total 285 ml 795 ml Balance 764.260 ml 1 ml IV Total 459.260 ml 421 ml Tube Feeding 440 ml 0 ml Blood Product 375 ml Other 150 ml Output Urine Total 285 ml 795 ml # Bowel Movements 5 2 Laboratory Tests Test 11/28/19 21:25 11/29/19 04:00 White Blood Count 19.4 K/UL (4.8-10.8) H 21.3 K/UL (4.8-10.8) H Red Blood Count 2.26 M/UL (4.70-6.10) L 2.22 M/UL (4.70-6.10) L Hemoglobin 7.0 G/DL (14.2-18.0) L 6.5 G/DL (14.2-18.0) *L Hematocrit 20.6 % (42.0-52.0) L 19.6 % (42.0-52.0) L Mean Corpuscular Volume 91 FL (80-99) 89 FL (80-99) Mean Corpuscular Hemoglobin 28.6 PG (27.0-31.0) 29.4 PG (27.0-31.0) Mean Corpuscular Hemoglobin Concent 31.2 G/DL (32.0-36.0) L 33.3 G/DL (32.0-36.0) Red Cell Distribution Width 20.0 % (11.6-14.8) H 18.4 % (11.6-14.8) H Platelet Count 281 K/UL (150-450) 266 K/UL (150-450) Mean Platelet Volume 5.1 FL (6.5-10.1) L 4.4 FL (6.5-10.1) L Neutrophils (%) (Auto) % (45.0-75.0) % (45.0-75.0) Lymphocytes (%) (Auto) % (20.0-45.0) % (20.0-45.0) Monocytes (%) (Auto) % (1.0-10.0) % (1.0-10.0) Eosinophils (%) (Auto) % (0.0-3.0) % (0.0-3.0) Basophils (%) (Auto) % (0.0-2.0) % (0.0-2.0) Differential Total Cells Counted 100 100 Neutrophils % (Manual) 85 % (45-75) H 80 % (45-75) H Lymphocytes % (Manual) 8 % (20-45) L 15 % (20-45) L Monocytes % (Manual) 5 % (1-10) 3 % (1-10) Eosinophils % (Manual) 2 % (0-3) 2 % (0-3) Basophils % (Manual) 0 % (0-2) 0 % (0-2) Band Neutrophils 0 % (0-8) 0 % (0-8) Platelet Estimate Adequate Adequate Platelet Morphology Normal Normal Hypochromasia 3+ 3+ Anisocytosis 3+ 2+ Prothrombin Time 11.3 SEC (9.30-11.50) Prothromb Time International Ratio 1.1 (0.9-1.1) Activated Partial Thromboplast Time 33 SEC (23-33) Sodium Level 137 MMOL/L (136-145) Potassium Level 3.9 MMOL/L (3.5-5.1) Chloride Level 103 MMOL/L (98-107) Carbon Dioxide Level 26 MMOL/L (21-32) Anion Gap 8 mmol/L (5-15) Blood Urea Nitrogen 69 mg/dL (7-18) H Creatinine 5.2 MG/DL (0.55-1.30) H Estimat Glomerular Filtration Rate 12.8 mL/min (>60) Glucose Level 106 MG/DL (74-106) Uric Acid 7.7 MG/DL (2.6-7.2) H Calcium Level 9.2 MG/DL (8.5-10.1) Phosphorus Level 4.5 MG/DL (2.5-4.9) Magnesium Level 2.1 MG/DL (1.8-2.4) Total Bilirubin 0.3 MG/DL (0.2-1.0) Aspartate Amino Transf (AST/SGOT) 15 U/L (15-37) Alanine Aminotransferase (ALT/SGPT) 8 U/L (12-78) L Alkaline Phosphatase 47 U/L (46-116) Troponin I 0.008 ng/mL (0.000-0.056) C-Reactive Protein, Quantitative 5.4 mg/dL (0.00-0.90) H Pro-B-Type Natriuretic Peptide 72344 pg/mL (0-125) H Total Protein 6.2 G/DL (6.4-8.2) L Albumin 2.0 G/DL (3.4-5.0) L Globulin 4.2 g/dL Albumin/Globulin Ratio 0.5 (1.0-2.7) L Random Vancomycin Level 17.2 ug/mL Vasu Zaidi MD Nov 29, 2019 16:27
--- NOTE | 2019-11-29 16:32 | NUR ---
NURSE NOTES: Seen by Dr. Zaidi and assessed patient.
[2019-11-29] MEDS ORDERED: Amikacin 500 MG in NS 110 ML IV SCH (17:00)
[2019-11-29 17:38] LABS: HEMATOCRIT 21.8 % (42.0-52.0); MEAN CORPUSCULAR VOLUME 92 FL (80-99); PLATELET COUNT 249 K/UL (150-450); RED BLOOD COUNT 2.36 M/UL (4.70-6.10); RED CELL DISTRIBUTION WIDTH 18.8 % (11.6-14.8); WHITE BLOOD COUNT 18.5 K/UL (4.8-10.8)
[2019-11-29 17:40] LABS: EOSINOPHILS % (AUTO) 0.9 % (0.0-3.0); HEMOGLOBIN 6.9 G/DL (14.2-18.0); LYMPHOCYTES % (AUTO) 6.1 % (20.0-45.0); MONOCYTES % (AUTO) 5.6 % (1.0-10.0); NEUTROPHILS % (AUTO) 86.7 % (45.0-75.0)
[2019-11-29 17:41] LABS: BASOPHILS % (AUTO) 0.8 % (0.0-2.0)
--- NOTE | 2019-11-29 18:00 | NUR ---
NURSE NOTES: Bed bath given. Noted with black soft moderate stool.
--- NOTE | 2019-11-29 18:03 | Internal Med Progress Note ---
Subjective Date of Service: Nov 29, 2019 Physician Name Zamarripa,Abisai Attending Physician Claude Garza MD Current Medications Medications (Trade) Dose Ordered Sig/Cyndi Route PRN Reason Start Time Stop Time Status Last Admin Dose Admin Acetaminophen (Tylenol) 650 mg Q4H PRN NG Fever 11/21/19 13:00 12/21/19 08:14 11/28/19 16:19 Amikacin Protocol (Amikacin pharmacy to dose) 1 ea DAILY PRN MISC Per rx protocol 11/29/19 15:00 12/29/19 14:59 Amikacin Sulfate 500 mg/Sodium Chloride 112 ml @ 112 mls/hr ONCE IV 11/29/19 17:00 11/29/19 19:00 11/29/19 17:16 Amlodipine Besylate (Norvasc) 2.5 mg DAILY NG 11/27/19 12:45 12/27/19 12:44 11/29/19 09:03 Chlorhexidine Gluconate (Corrie-Hex 2%) 1 applic DAILY@2000 TOPIC 11/27/19 20:00 02/25/20 19:59 11/28/19 20:10 Dextrose (Dextrose 50%) 25 ml Q30M PRN IV Hypoglycemia 11/21/19 08:15 02/19/20 08:14 Dextrose (Dextrose 50%) 50 ml Q30M PRN IV Hypoglycemia 11/21/19 08:15 02/19/20 08:14 Docusate Sodium (Colace) 100 mg THREE TIMES A DAY NG 11/21/19 13:00 12/21/19 12:59 11/29/19 09:02 Fentanyl Citrate 2500 mcg/Sodium Chloride 250 ml @ 0 mls/hr Q24H IV 11/29/19 16:00 12/06/19 15:59 11/29/19 16:22 Hydralazine HCl (Apresoline) 10 mg Q4H PRN IV BP over 160 sys 11/29/19 13:30 02/27/20 13:29 Meropenem 500 mg/ Sodium Chloride 55 ml @ 110 mls/hr Q12HR IVPB 11/25/19 14:00 11/30/19 13:59 11/29/19 09:04 Metoclopramide HCl (Reglan) 5 mg Q8H PRN IVP Nausea & Vomiting 2ND CHOICE 11/29/19 12:00 12/29/19 11:59 Metoprolol Tartrate (Lopressor) 50 mg Q12HR NG 11/28/19 21:00 02/19/20 20:59 11/29/19 09:03 Nitroglycerin (Ntg) 1 patch Q24H TDERMAL 11/22/19 11:00 12/22/19 10:59 11/29/19 10:47 Ondansetron HCl (Zofran) 4 mg Q6H PRN IVP Nausea & Vomiting 11/21/19 08:15 12/21/19 08:14 Pantoprazole 80 mg/Sodium Chloride 250 ml @ 25 mls/hr Q10H IV 11/29/19 11:30 12/29/19 11:29 11/29/19 11:57 Polyethylene Glycol (Miralax) 17 gm DAILYPRN PRN NG Constipation 11/21/19 13:00 12/21/19 08:14 Sucralfate (Carafate) 1 gm FOUR TIMES A DAY NG 11/29/19 13:30 02/27/20 13:29 Vancomycin HCl (Vanco rx to dose) 1 ea DAILY PRN MISC Per rx protocol 11/22/19 14:45 12/22/19 14:44 Allergies: Coded Allergies: LISINOPRIL (Verified Allergy, Unknown, 11/21/19) SIMVASTATIN (Verified Allergy, Unknown, 11/21/19) TERAZOSIN (Verified Allergy, Unknown, 11/21/19) ROS Limited/Unobtainable: Yes Subjective 83 YO M admitted with respiratory failure. Now pneumonia, UTI and sepsis. Cover for Int Med-DR Garza. Intubated and sedated. ICU Objective Last Vital Signs Date Time Temp Pulse Resp B/P (MAP) Pulse Ox O2 Delivery O2 Flow Rate FiO2 11/29/19 16:58 107 16 30 11/29/19 16:22 Mechanical Ventilator 11/29/19 14:00 138/85 (102) 100 11/29/19 12:30 98.7 Laboratory Tests Test 11/28/19 21:25 11/29/19 04:00 11/29/19 16:40 White Blood Count 19.4 K/UL (4.8-10.8) H 21.3 K/UL (4.8-10.8) H 18.5 K/UL (4.8-10.8) H Red Blood Count 2.26 M/UL (4.70-6.10) L 2.22 M/UL (4.70-6.10) L 2.36 M/UL (4.70-6.10) L Hemoglobin 7.0 G/DL (14.2-18.0) L 6.5 G/DL (14.2-18.0) *L 6.9 G/DL (14.2-18.0) *L Hematocrit 20.6 % (42.0-52.0) L 19.6 % (42.0-52.0) L 21.8 % (42.0-52.0) L Mean Corpuscular Volume 91 FL (80-99) 89 FL (80-99) 92 FL (80-99) Mean Corpuscular Hemoglobin 28.6 PG (27.0-31.0) 29.4 PG (27.0-31.0) 29.0 PG (27.0-31.0) Mean Corpuscular Hemoglobin Concent 31.2 G/DL (32.0-36.0) L 33.3 G/DL (32.0-36.0) 31.4 G/DL (32.0-36.0) L Red Cell Distribution Width 20.0 % (11.6-14.8) H 18.4 % (11.6-14.8) H 18.8 % (11.6-14.8) H Platelet Count 281 K/UL (150-450) 266 K/UL (150-450) 249 K/UL (150-450) Mean Platelet Volume 5.1 FL (6.5-10.1) L 4.4 FL (6.5-10.1) L 5.2 FL (6.5-10.1) L Neutrophils (%) (Auto) % (45.0-75.0) % (45.0-75.0) 86.7 % (45.0-75.0) H Lymphocytes (%) (Auto) % (20.0-45.0) % (20.0-45.0) 6.1 % (20.0-45.0) L Monocytes (%) (Auto) % (1.0-10.0) % (1.0-10.0) 5.6 % (1.0-10.0) Eosinophils (%) (Auto) % (0.0-3.0) % (0.0-3.0) 0.9 % (0.0-3.0) Basophils (%) (Auto) % (0.0-2.0) % (0.0-2.0) 0.8 % (0.0-2.0) Differential Total Cells Counted 100 100 Neutrophils % (Manual) 85 % (45-75) H 80 % (45-75) H Lymphocytes % (Manual) 8 % (20-45) L 15 % (20-45) L Monocytes % (Manual) 5 % (1-10) 3 % (1-10) Eosinophils % (Manual) 2 % (0-3) 2 % (0-3) Basophils % (Manual) 0 % (0-2) 0 % (0-2) Band Neutrophils 0 % (0-8) 0 % (0-8) Platelet Estimate Adequate Adequate Platelet Morphology Normal Normal Hypochromasia 3+ 3+ Anisocytosis 3+ 2+ Prothrombin Time 11.3 SEC (9.30-11.50) Prothromb Time International Ratio 1.1 (0.9-1.1) Activated Partial Thromboplast Time 33 SEC (23-33) Sodium Level 137 MMOL/L (136-145) Potassium Level 3.9 MMOL/L (3.5-5.1) Chloride Level 103 MMOL/L (98-107) Carbon Dioxide Level 26 MMOL/L (21-32) Anion Gap 8 mmol/L (5-15) Blood Urea Nitrogen 69 mg/dL (7-18) H Creatinine 5.2 MG/DL (0.55-1.30) H Estimat Glomerular Filtration Rate 12.8 mL/min (>60) Glucose Level 106 MG/DL (74-106) Uric Acid 7.7 MG/DL (2.6-7.2) H Calcium Level 9.2 MG/DL (8.5-10.1) Phosphorus Level 4.5 MG/DL (2.5-4.9) Magnesium Level 2.1 MG/DL (1.8-2.4) Total Bilirubin 0.3 MG/DL (0.2-1.0) Aspartate Amino Transf (AST/SGOT) 15 U/L (15-37) Alanine Aminotransferase (ALT/SGPT) 8 U/L (12-78) L Alkaline Phosphatase 47 U/L (46-116) Troponin I 0.008 ng/mL (0.000-0.056) C-Reactive Protein, Quantitative 5.4 mg/dL (0.00-0.90) H Pro-B-Type Natriuretic Peptide 84254 pg/mL (0-125) H Total Protein 6.2 G/DL (6.4-8.2) L Albumin 2.0 G/DL (3.4-5.0) L Globulin 4.2 g/dL Albumin/Globulin Ratio 0.5 (1.0-2.7) L Random Vancomycin Level 17.2 ug/mL Intake and Output 11/28/19 11/29/19 19:00 07:00 Intake Total 1049.260 ml 796 ml Output Total 285 ml 795 ml Balance 764.260 ml 1 ml IV Total 459.260 ml 421 ml Tube Feeding 440 ml 0 ml Blood Product 375 ml Other 150 ml Output Urine Total 285 ml 795 ml # Bowel Movements 5 2 Objective PHYSICAL EXAMINATION: GENERAL: The patient is well-developed, well-nourished male, who is intubated and sedated in the intensive care unit. HEENT: Eyes, pupils are equal and responsive to light and accommodation. Extraocular movements are intact. NECK: Supple without lymphadenopathy. CHEST: Mech vent; Bilateral expiratory air sounds, otherwise clear to auscultation without rales. CARDIOVASCULAR: Regular rhythm and rate. S1 and S2 normal without murmurs, rubs, or gallops. ABDOMEN: Soft, nontender, and nondistended. Positive bowel sounds. No evidence of hepatosplenomegaly. Currently, no rebound or guarding noted. EXTREMITIES: Negative for clubbing, cyanosis, or edema. RECTAL/GENITAL: Not performed. NEUROLOGIC: Cranial nerves II through XII are grossly intact without focal deficits. Motor strength is 5/5 bilaterally. Deep tendon reflexes are 2+ plantar. Assessment/Plan Assessment/Plan ASSESSMENT: This is an 83-year-old male. 1. Respiratory failure. 2. Congestive heart failure. 3. Atrial fibrillation. 4. Altered mental status. 5. Urinary tract infection. 6. Renal failure. 7. Hypertension. 8. Alzheimer's dementia. 9. Benign prostatic hypertrophy. 10. urinary tract infection-ESBL E. Coli and pseudamonas aeruginosa. 11. Sepsis-Staph Warneri 12. pneumonia=pseudamonas aeruginosa TREATMENT: 1. Congestive heart failure. A Cardiology consultation has been obtained with Dr. Vasu Zaidi. We will follow recommendations of Cardiology. The patient is currently receiving intravenous Lasix. 2. Respiratory failure. A Pulmonary consultation has been obtained with Dr. Susannah Hightower. The patient is currently intubated in the intensive care unit. We will follow recommendations of Pulmonary. ABX=meropenem and vanco per ID=Dr Hicks 3. Atrial fibrillation as above. A Cardiology consultation has been obtained with Dr. Vasu Zaidi. 4. Renal failure. A Nephrology consultation has been obtained with Dr. Ellison. We will follow recommendations of Nephrology. 5. Hypertension. The patient is currently hypotensive in the intensive care unit. 6. Alzheimer's dementia. 7. Benign prostatic hypertrophy. 8. ABX = meropenem per ID Abisai Zamarripa MD Nov 29, 2019 18:03
--- NOTE | 2019-11-29 19:20 | NUR ---
NURSE NOTES: Informed Dr. Hightower pt's hgb 6.9. Ordered 2 pRBC.
--- NOTE | 2019-11-29 19:30 | NUR ---
HAND-OFF: Report given to SYED Foster. Endorsed plan of care.
--- NOTE | 2019-11-29 20:00 | NUR ---
NURSE NOTES: PT AWAKE AND ALERT FOLLOWS COMMAND ON MARTÍN SOFT REST NON COMPLAINT ON FENT DRIP AT 300 MCG/HR REPOSITION AND SUCTION 1UNIT PRBC STARTED NO REACTION AT 15MIN
[2019-11-29] MEDS ORDERED: NS 275ml ONE ×3 (20:39→20:41)
[2019-11-29] MEDS ORDERED: D5 1/2NS 1000ml IV ONE (20:41)
[2019-11-29] MEDS ORDERED: Tubing IV Blood Pump IV ONE (20:41)
[2019-11-29] MEDS: Dyna-Hex 2% Top Sol 2oz TOPIC SCH (20:52)
[2019-11-30] VITALS (44 sets, daily range): BP systolic 114–184; BP diastolic 64–113
[2019-11-30] MEDS: fentaNYL Citrate 2500mcg in NS 250ml IV SCH ×3 (01:30→18:07)
[2019-11-30 06:39] LABS: HEMATOCRIT 24.4 % (42.0-52.0); HEMOGLOBIN 8.3 G/DL (14.2-18.0); MEAN CORPUSCULAR VOLUME 90 FL (80-99); PLATELET COUNT 211 K/UL (150-450); RED CELL DISTRIBUTION WIDTH 15.3 % (11.6-14.8); WHITE BLOOD COUNT 17.5 K/UL (4.8-10.8)
[2019-11-30 06:54] LABS: ALANINE AMINOTRANSFERASE 8 U/L (12-78); ALBUMIN 2.1 G/DL (3.4-5.0); ALBUMIN/GLOBULIN RATIO 0.6 (1.0-2.7); ALKALINE PHOSPHATASE 44 U/L (46-116); ANION GAP 8 mmol/L (5-15); ASPARTATE AMINO TRANSFERASE 13 U/L (15-37); BILIRUBIN,TOTAL 0.3 MG/DL (0.2-1.0); BLOOD UREA NITROGEN 68 mg/dL (7-18); CALCIUM 8.6 MG/DL (8.5-10.1); CARBON DIOXIDE 26 MMOL/L (21-32); CHLORIDE 107 MMOL/L (98-107); CREATININE 5.1 MG/DL (0.55-1.30); PHOSPHORUS 4.7 MG/DL (2.5-4.9); POTASSIUM 4.3 MMOL/L (3.5-5.1); SODIUM 141 MMOL/L (136-145)
--- NOTE | 2019-11-30 07:25 | NUR ---
NURSE NOTES: Received report from SYED Foster. Patient is sedated with fentanyl @300mcg/hr, RASS -2. Open his eyes to verbal. Afib 90s on the monitor. ETT 7.5/25cm at lip line with vent setting AC 16, VT 550 and FiO2 30%. Patiño intact and draining with yellow color urine. Left upper PICC intact, clean and running with fentanyl and pantoprozole 8mg/hr. Kept dry, clean,comfortable and HOB>30. NPO status. Will continue plan of care.
[2019-11-30] MEDS: Pantoprazole 80 MG in NS 250 ML IV SCH ×2 (07:40→17:18)
[2019-11-30] MEDS: Metoprolol Tartrate 50mg tab NG SCH ×2 (09:00→20:34)
[2019-11-30] MEDS: Docusate 100mg/10ml Liq NG SCH ×3 (09:00→17:18)
[2019-11-30] MEDS: Sucralfate 1gm tab NG SCH ×4 (09:00→20:34)
--- NOTE | 2019-11-30 09:08 | NUR ---
RD ASSESSMENT & RECOMMENDATIONS SEE CARE ACTIVITY FOR COMPLETE ASSESSMENT DAILY ESTIMATED NEEDS: Needs based on Critical care, wound, ARF/ 80kg abw 22-28 kcals/kg [id number] total kcals 0.8-1.0 (increase w/ renal improvement) g protein/kg 64-80 g total protein Fluids per MD NUTRITION DIAGNOSIS: * Swallowing difficulty R/T respiratory status as evidenced by pt orally intubated, OGT feedings held d/t GIB. * Altered nutrition related lab values R/T ARF on CKD as evidenced by elev creat (6.4 -> 4.8), elev K (6.1*->wnl), elev BNP (>24135). CURRENT TF:Jevity 1.2 @ 40ml/hr-> NOW HELD ENTERAL NUTRITION RECOMMENDATIONS: Nepro @ 40ml/hr x 24 hrs to provide 960ml, 1728kcal, 78g prot, 698ml free water * As medically able, Rec NEPRO at this time given hyperkalemia upon adm, creat 6.4 (now 5.1) * Initiate Nepro @ 10ml/hr x 6hrs, advance 10ml q 4-6 hrs as tolerated to goal rate. * HOB over 30 degrees/ water flush per MD * TF @ goal will meet 98% est kcal and 100% est prot needs ADDITIONAL RECOMMENDATIONS: * Per SNF: HT=71" [id number] * Monitor renal fxn and lytes: creat 6.4, K 6.1 upon adm -> monitor continued need for renal TF formula of Nepro * Wound healing: add Nephrovite x 1 add Petros BID as tolerated
[2019-11-30] MEDS: Meropenem 500 MG in NS 55 ML IVPB SCH ×2 (09:11→20:44)
--- NOTE | 2019-11-30 09:15 | NUR ---
NURSE NOTES: IV medication given as orders.
--- NOTE | 2019-11-30 09:20 | Pre-Procedure Note/Attestation ---
Pre-Procedure Note/Attestation Complete Prior to Procedure Planned Procedure: not applicable Procedure Narrative: EGD Indications for Procedure Pre-Operative Diagnosis: GIB Attestation I attest that I discussed the nature of the procedure; its benefits; risks and complications; and alternatives (and the risks and benefits of such alternatives ), prior to the procedure, with the patient (or the patient's legal it sales representative). I attest that, if there was a reasonable possibility of needing a blood transfusion, the patient (or the patient's legal it sales representative) was given the [facility] standardized written summary, pursuant to the [place] Blood Safety Act ([place] Health and Safety Code # 1645, as amended). I attest that I re-evaluated the patient just prior to the surgery and that there has been no change in the patient's H&P, except as documented below: Hunter Sierra MD Nov 30, 2019 09:20
[2019-11-30] MEDS ORDERED: Propofol 200mg/20ml IV ONE (09:30)
[2019-11-30] MEDS ORDERED: Lidocaine 1% MPF 10mg/ml 5ml ONE (09:30)
--- NOTE | 2019-11-30 09:42 | Anethesia Preoperative Eval ---
Anesthesia Pre-op PMH/ROS General Date of Evaluation: Nov 30, 2019 Time of Evaluation: 09:42 Anesthesiologist: ruby ASA Score: ASA 4 Mallampati Score Class I : Soft palate, uvula, fauces, pillars visible Class II: Soft palate, uvula, fauces visible Class III: Soft palate, base of uvula visible Class IV: Only hard plate visible Mallampati Classification: Class II Surgeon: eneida Diagnosis: gi bleed Surgical Procedure: egd Anesthesia History: none Social History: smoking - nonsmoker Family History: no anesthesia problems Allergies: Coded Allergies: LISINOPRIL (Verified Allergy, Unknown, 11/21/19) SIMVASTATIN (Verified Allergy, Unknown, 11/21/19) TERAZOSIN (Verified Allergy, Unknown, 11/21/19) Medications: see eMAR Patient NPO?: Yes Past Medical History Cardiovascular: Reports: HTN, arrhythmia - a-fib, chf Pulmonary: Reports: other - respiratory failure, oral intubation, tb, Gastrointestinal/Genitourinary: Reports: other - bph, chronic renal failure, hepatitis Neurologic/Psychiatric: Reports: dementia Hematology/Immune: Reports: anemia Musculoskeletal/Integumentary: Reports: OA Anesthesia Pre-op Phys. Exam Physician Exam Last Vital Signs Date Time Temp Pulse Resp B/P (MAP) Pulse Ox O2 Delivery O2 Flow Rate FiO2 11/30/19 09:00 79 131/84 11/30/19 06:41 16 30 11/30/19 06:00 98 11/30/19 04:00 97.8 11/30/19 04:00 Mechanical Ventilator Mechanical Ventilator Mechanical Ventilator Constitutional: NAD Neurologic: other Cardiovascular: other - irreg irreg Respiratory: other - oral ett Gastrointestinal: S/NT/ND Airway Exam Mallampati Score: Class II MO: limited Neck: flexible TMD: 2fb ROM: limited Teeth: missing Anesthesia Pre-op A/P Labs Hematology Test 11/29/19 16:40 11/30/19 03:40 White Blood Count 18.5 K/UL (4.8-10.8) H 17.5 K/UL (4.8-10.8) H Red Blood Count 2.36 M/UL (4.70-6.10) L 2.70 M/UL (4.70-6.10) L Hemoglobin 6.9 G/DL (14.2-18.0) *L 8.3 G/DL (14.2-18.0) L Hematocrit 21.8 % (42.0-52.0) L 24.4 % (42.0-52.0) L Mean Corpuscular Volume 92 FL (80-99) 90 FL (80-99) Mean Corpuscular Hemoglobin 29.0 PG (27.0-31.0) 30.7 PG (27.0-31.0) Mean Corpuscular Hemoglobin Concent 31.4 G/DL (32.0-36.0) L 34.0 G/DL (32.0-36.0) Red Cell Distribution Width 18.8 % (11.6-14.8) H 15.3 % (11.6-14.8) H Platelet Count 249 K/UL (150-450) 211 K/UL (150-450) Mean Platelet Volume 5.2 FL (6.5-10.1) L 4.6 FL (6.5-10.1) L Neutrophils (%) (Auto) 86.7 % (45.0-75.0) H % (45.0-75.0) Lymphocytes (%) (Auto) 6.1 % (20.0-45.0) L % (20.0-45.0) Monocytes (%) (Auto) 5.6 % (1.0-10.0) % (1.0-10.0) Eosinophils (%) (Auto) 0.9 % (0.0-3.0) % (0.0-3.0) Basophils (%) (Auto) 0.8 % (0.0-2.0) % (0.0-2.0) Neutrophils % (Manual) Pending Lymphocytes % (Manual) Pending Platelet Estimate Pending Platelet Morphology Pending Coagulation Test 11/30/19 03:40 Prothrombin Time 10.9 SEC (9.30-11.50) Prothromb Time International Ratio 1.0 (0.9-1.1) Activated Partial Thromboplast Time 32 SEC (23-33) Chemistry Test 11/30/19 03:40 Sodium Level 141 MMOL/L (136-145) Potassium Level 4.3 MMOL/L (3.5-5.1) Chloride Level 107 MMOL/L (98-107) Carbon Dioxide Level 26 MMOL/L (21-32) Anion Gap 8 mmol/L (5-15) Blood Urea Nitrogen 68 mg/dL (7-18) H Creatinine 5.1 MG/DL (0.55-1.30) H Estimat Glomerular Filtration Rate 13.2 mL/min (>60) Glucose Level 85 MG/DL (74-106) Calcium Level 8.6 MG/DL (8.5-10.1) Phosphorus Level 4.7 MG/DL (2.5-4.9) Magnesium Level 1.9 MG/DL (1.8-2.4) Total Bilirubin 0.3 MG/DL (0.2-1.0) Aspartate Amino Transf (AST/SGOT) 13 U/L (15-37) L Alanine Aminotransferase (ALT/SGPT) 8 U/L (12-78) L Alkaline Phosphatase 44 U/L (46-116) L Troponin I 0.000 ng/mL (0.000-0.056) Total Protein 5.8 G/DL (6.4-8.2) L Albumin 2.1 G/DL (3.4-5.0) L Globulin 3.7 g/dL Albumin/Globulin Ratio 0.6 (1.0-2.7) L Risk Assessment & Plan Assessment: [email or web address] Plan: mac Status Change Before Surgery: No Pre-Antibiotics Drug: Apurva Hernandez MD Nov 30, 2019 09:42
[2019-11-30] MEDS ORDERED: fentaNYL 100 mcg/2 mL IV PRN (09:45)
[2019-11-30] MEDS ORDERED: Atropine Inj 1mg/10ml Syr IV PRN (09:45)
[2019-11-30] MEDS ORDERED: Midazolam 2mg/2ml Inj IVP PRN (09:45)
[2019-11-30] MEDS ORDERED: DiphenhydrAMINE 50mg/ml Inj IVP PRN (09:45)
[2019-11-30] MEDS ORDERED: NS 500ML IVPB ONE (10:00)
--- NOTE | 2019-11-30 10:00 | General Progress Note ---
Assessment/Plan Status: stable, unchanged Assessment/Plan: patient has active GIB needs emergency EGD no family available for consent will proceed with MD consent Subjective ROS Limited/Unobtainable: No Allergies: Coded Allergies: LISINOPRIL (Verified Allergy, Unknown, 11/21/19) SIMVASTATIN (Verified Allergy, Unknown, 11/21/19) TERAZOSIN (Verified Allergy, Unknown, 11/21/19) Objective Last 24 Hour Vital Signs Date Time Temp Pulse Resp B/P (MAP) Pulse Ox O2 Delivery O2 Flow Rate FiO2 11/30/19 09:46 16 Mechanical Ventilator 30 11/30/19 09:30 73 16 30 11/30/19 09:00 79 131/84 11/30/19 09:00 79 131/84 11/30/19 06:41 89 16 30 11/30/19 06:30 93 15 11/30/19 06:00 92 35 142/64 (90) 98 11/30/19 05:30 88 35 148/84 (105) 98 11/30/19 05:14 98 17 30 11/30/19 05:00 92 35 173/89 (117) 98 11/30/19 04:30 91 35 155/77 (103) 98 11/30/19 04:00 97.8 93 35 178/90 (119) 98 11/30/19 04:00 84 11/30/19 04:00 30 11/30/19 04:00 Mechanical Ventilator Mechanical Ventilator Mechanical Ventilator 11/30/19 03:30 79 35 139/85 (103) 98 11/30/19 03:30 72 16 30 11/30/19 03:00 85 35 148/84 (105) 98 11/30/19 02:30 94 35 148/90 (109) 98 11/30/19 02:00 103 35 163/102 (122) 98 11/30/19 01:30 20 Mechanical Ventilator 30 11/30/19 01:30 96 35 158/98 (118) 98 11/30/19 01:00 99 35 168/106 (126) 98 11/30/19 00:51 75 16 30 11/30/19 00:00 87 11/30/19 00:00 24 Mechanical Ventilator 100 11/30/19 00:00 30 11/30/19 00:00 88 35 153/87 (109) 98 11/30/19 00:00 Mechanical Ventilator Mechanical Ventilator Mechanical Ventilator 11/29/19 23:30 87 42 145/84 (104) 99 11/29/19 23:21 75 16 30 11/29/19 23:00 22 Mechanical Ventilator 30 11/29/19 23:00 95 56 145/83 (103) 98 11/29/19 22:30 98.6 113 44 155/103 (120) 99 11/29/19 22:00 90 72 137/80 (99) 99 11/29/19 22:00 16 Mechanical Ventilator 30 11/29/19 21:34 109 16 30 11/29/19 21:30 91 18 144/81 (102) 99 11/29/19 21:00 91 22 143/83 (103) 99 11/29/19 21:00 18 Mechanical Ventilator 30 11/29/19 20:53 88 147/84 11/29/19 20:30 92 20 147/85 (105) 98 11/29/19 20:00 30 11/29/19 20:00 Mechanical Ventilator Mechanical Ventilator Mechanical Ventilator 11/29/19 20:00 16 Mechanical Ventilator 30 11/29/19 20:00 98.8 100 21 141/82 (101) 98 11/29/19 20:00 92 11/29/19 19:17 95 16 30 11/29/19 19:00 99 18 141/83 (102) 98 11/29/19 19:00 18 Mechanical Ventilator 30 11/29/19 18:30 108 18 145/82 (103) 98 11/29/19 18:00 104 30 161/82 (108) 93 11/29/19 17:30 93 27 143/78 (99) 99 11/29/19 17:00 100 21 148/82 (104) 98 11/29/19 16:58 107 16 30 11/29/19 16:30 95 37 142/87 (105) 100 11/29/19 16:22 16 Mechanical Ventilator 30 11/29/19 16:00 100 11/29/19 16:00 Mechanical Ventilator Mechanical Ventilator Mechanical Ventilator 11/29/19 16:00 30 11/29/19 16:00 99 47 162/87 (112) 99 11/29/19 15:30 96 28 142/83 (102) 99 11/29/19 15:04 89 16 30 11/29/19 15:00 92 20 141/87 (105) 98 3/26/20 14:00 99 17 138/85 (102) 100 11/29/19 14:00 16 Mechanical Ventilator 30 11/29/19 13:30 92 17 125/70 (88) 100 11/29/19 13:00 103 17 145/91 (109) 100 11/29/19 13:00 16 Mechanical Ventilator 30 11/29/19 12:47 92 16 30 11/29/19 12:45 16 Mechanical Ventilator 30 11/29/19 12:30 98.7 97 17 137/79 (98) 99 11/29/19 12:03 86 20 100 11/29/19 12:01 82 20 100 11/29/19 12:00 30 11/29/19 12:00 Mechanical Ventilator Mechanical Ventilator Mechanical Ventilator 11/29/19 12:00 95 17 129/98 (108) 99 11/29/19 12:00 92 11/29/19 11:57 99/85 11/29/19 11:30 89 16 77/43 (54) 99 11/29/19 11:00 80 16 162/91 (114) 99 11/29/19 11:00 16 Mechanical Ventilator 30 11/29/19 10:47 162/91 11/29/19 10:37 75 16 30 11/29/19 10:30 79 15 162/91 (114) 97 11/29/19 10:00 78 17 141/86 (104) 98 11/29/19 10:00 16 Mechanical Ventilator 30 Intake and Output 11/29/19 11/30/19 19:00 07:00 Intake Total 572.5 ml 965 ml Output Total 1040 ml 850 ml Balance -467.5 ml 115 ml Free Water 150 ml 100 ml IV Total 297.5 ml 165 ml Tube Feeding 0 ml 0 ml Blood Product 125 ml 700 ml Output Urine Total 1040 ml 850 ml # Bowel Movements 2 3 Laboratory Tests 11/29/19 16:40: White Blood Count 18.5H, Red Blood Count 2.36L, Hemoglobin 6.9*L, Hematocrit 21.8L, Mean Corpuscular Volume 92, Mean Corpuscular Hemoglobin 29.0, Mean Corpuscular Hemoglobin Concent 31.4L, Red Cell Distribution Width 18.8H, Platelet Count 249, Mean Platelet Volume 5.2L, Neutrophils (%) (Auto) 86.7H, Lymphocytes (%) (Auto) 6.1L, Monocytes (%) (Auto) 5.6, Eosinophils (%) (Auto) 0.9, Basophils (%) (Auto) 0.8 11/30/19 03:40: White Blood Count 17.5H, Red Blood Count 2.70L, Hemoglobin 8.3L, Hematocrit 24.4L, Mean Corpuscular Volume 90, Mean Corpuscular Hemoglobin 30.7, Mean Corpuscular Hemoglobin Concent 34.0, Red Cell Distribution Width 15.3H, Platelet Count 211, Mean Platelet Volume 4.6L, Neutrophils (%) (Auto) , Lymphocytes (%) (Auto) , Monocytes (%) (Auto) , Eosinophils (%) (Auto) , Basophils (%) (Auto) , Neutrophils % (Manual) [Pending], Lymphocytes % (Manual) [Pending], Platelet Estimate [Pending], Platelet Morphology [Pending], Prothrombin Time 10.9, Prothromb Time International Ratio 1.0, Activated Partial Thromboplast Time 32, Sodium Level 141, Potassium Level 4.3, Chloride Level 107, Carbon Dioxide Level 26, Anion Gap 8, Blood Urea Nitrogen 68H, Creatinine 5.1H, Estimat Glomerular Filtration Rate 13.2, Glucose Level 85, Calcium Level 8.6, Phosphorus Level 4.7, Magnesium Level 1.9, Total Bilirubin 0.3, Aspartate Amino Transf (AST/SGOT) 13L, Alanine Aminotransferase (ALT/SGPT) 8L, Alkaline Phosphatase 44L, Troponin I 0.000, Total Protein 5.8L, Albumin 2.1L , Globulin 3.7, Albumin/Globulin Ratio 0.6L Height (Feet): 5 Height (Inches): 10.00 Weight (Pounds): 210 General Appearance: lethargic EENT: normal ENT inspection Neck: supple Cardiovascular: normal rate Respiratory/Chest: decreased breath sounds Abdomen: normal bowel sounds, non tender, soft Extremities: non-tender Hunter Sierra MD Nov 30, 2019 10:00
[2019-11-30] MEDS ORDERED: Metoclopramide 10mg/2ml Inj IVP PRN (10:30)
--- NOTE | 2019-11-30 10:31 | NUR ---
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 Per Ravin, pt reported he does not have relationship w/ his daughters and provided consent to contact them when in emergency. It is unknown whether pt has any siblings. PT served [employer]-. Per Ravin, pt was homeless prior to his admission at [facility] on 11/09/2019. Pt reported Ravin that pt is the decision maker at that time. Addendum: 11/30/19 at 1039 by SRINIVASAN CADE Ravin also informed this SW that pt did not complete POLST w/ her. Per pt, he wanted to review POLST before signing the form.
--- NOTE | 2019-11-30 10:40 | NUR ---
NURSE NOTES: EGD done at the bedside. Will continue plan of care.
[2019-11-30] MEDS: Nitroglycerin Patch 0.4mg TDERMAL SCH (11:13)
--- NOTE | 2019-11-30 11:18 | Immediate Post-Op Evaluation ---
Immediate Post-Op Evalulation Immediate Post-Op Evalulation Procedure: EGDw/bx Date of Evaluation: Nov 30, 2019 Time of Evaluation: 10:37 IV Fluids: 100ml 0.9ns Blood Products: none Estimated Blood Loss: negligible Blood Pressure Systolic: 151 Blood Pressure Diastolic: 91 Pulse Rate: 77 Respiratory Rate: 18 O2 Sat by Pulse Oximetry: 100 Temperature (Fahrenheit): 98.2 Pain Score (1-10): 0 Nausea: No Vomiting: No Complications none Patient Status: awake, reacts, patent, ventilated Hydration Status: adequate Drug: Apurva Hernandez MD Nov 30, 2019 11:18
--- NOTE | 2019-11-30 11:29 | NUR ---
NURSE NOTES: Seen. Dr. Hightower and assessed patient. Asked Dr. Hightower to document for necessity of thoracentesis. He said he will document. Will follow up.
--- NOTE | 2019-11-30 11:30 | 48 Hour Post Anesthesia Eval ---
Post Anesthesia Evaluation Procedure: EGDw/bx Date of Evaluation: Nov 30, 2019 Time of Evaluation: 10:39 Blood Pressure Systolic: 168 0: 83 Pulse Rate: 85 Respiratory Rate: 16 Temperature (Fahrenheit): 98.2 O2 Sat by Pulse Oximetry: 100 Airway: patent Nausea: No Vomiting: No Pain Intensity: 0 Hydration Status: adequate Cardiopulmonary Status: stable Mental Status/LOC: patient returned to baseline Post-Anesthesia Complications: none Follow-up care needed: N/A Apurva Lackey MD Nov 30, 2019 11:30
--- NOTE | 2019-11-30 11:38 | NUR ---
CASE MANAGEMENT: REVIEW 11/30/2019 SI:ACUTE RESP FAILURE W/ HYPERCAPNIA T 98.2 HR 77 RR 17 B/P 136/80 SATS 99% ON MECH VENT FIO2 30 LABS: WBC 17.5 BUN 68 CR 5.1 AST 13 ALT 8 TOTAL CK 44 IS: REGLAN IV Q8H NS @ 10 ML/HR NORVASC NG QD MEROPENEM IV Q12H LOPRESSOR NG Q12H FENTANYL IV PER PARAMETERS REGLAN IV Q8H ICU
--- NOTE | 2019-11-30 11:55 | Pulmonolgy Critical Care Note ---
Critical Care - Asmt/Plan Problems: (1) Acute hypercapnic respiratory failure (2) Paroxysmal A-fib (3) Anemia, chronic renal failure (4) Acute on chronic renal insufficiency (5) Chronic hepatitis (6) Moderate pulmonary arterial systolic hypertension (7) Left ventricular ejection fraction greater than or equal to 40 percent (8) History of hypertension (9) Alzheimer's dementia (10) BPH (benign prostatic hyperplasia) Respiratory: monitor respiratory rate, adjust FIO2, CXR Cardiac: continue to monitor HR/BP Renal: F/U I&O, check electrolytes Infectious Disease: check cultures, continue antibiotics Gastrointestinal: continue feedings/current rate, other - egd done yesterday, blood clots were seen. 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 There is no family member, willing to sign is consents. Critical Care - Objective Last 24 Hour Vital Signs Date Time Temp Pulse Resp B/P (MAP) Pulse Ox O2 Delivery O2 Flow Rate FiO2 11/30/19 11:30 85 16 100 11/30/19 11:18 77 18 100 11/30/19 11:13 167/103 11/30/19 11:00 18 Mechanical Ventilator 30 11/30/19 10:54 73 16 30 11/30/19 10:00 18 Mechanical Ventilator 30 11/30/19 10:00 85 16 168/83 (111) 100 11/30/19 09:46 16 Mechanical Ventilator 30 11/30/19 09:45 16 Mechanical Ventilator 30 11/30/19 09:30 73 16 30 11/30/19 09:30 87 19 168/94 (118) 99 11/30/19 09:00 18 Mechanical Ventilator 30 11/30/19 09:00 79 131/84 11/30/19 09:00 79 131/84 11/30/19 09:00 73 17 131/84 (100) 99 11/30/19 08:30 98.2 77 17 136/80 (98) 99 11/30/19 08:00 16 Mechanical Ventilator 30 11/30/19 08:00 Mechanical Ventilator Mechanical Ventilator Mechanical Ventilator 11/30/19 08:00 30 11/30/19 08:00 16 155/84 (107) 99 11/30/19 07:00 16 Mechanical Ventilator 30 11/30/19 06:41 89 16 30 11/30/19 06:30 93 15 11/30/19 06:00 92 35 142/64 (90) 98 11/30/19 05:30 88 35 148/84 (105) 98 11/30/19 05:14 98 17 30 11/30/19 05:00 92 35 173/89 (117) 98 11/30/19 04:30 91 35 155/77 (103) 98 11/30/19 04:00 97.8 93 35 178/90 (119) 98 11/30/19 04:00 84 11/30/19 04:00 30 11/30/19 04:00 Mechanical Ventilator Mechanical Ventilator Mechanical Ventilator 11/30/19 03:30 79 35 139/85 (103) 98 11/30/19 03:30 72 16 30 11/30/19 03:00 85 35 148/84 (105) 98 11/30/19 02:30 94 35 148/90 (109) 98 11/30/19 02:00 103 35 163/102 (122) 98 11/30/19 01:30 20 Mechanical Ventilator 30 11/30/19 01:30 96 35 158/98 (118) 98 11/30/19 01:00 99 35 168/106 (126) 98 11/30/19 00:51 75 16 30 11/30/19 00:00 87 11/30/19 00:00 24 Mechanical Ventilator 100 11/30/19 00:00 30 11/30/19 00:00 88 35 153/87 (109) 98 11/30/19 00:00 Mechanical Ventilator Mechanical Ventilator Mechanical Ventilator 11/29/19 23:30 87 42 145/84 (104) 99 11/29/19 23:21 75 16 30 11/29/19 23:00 22 Mechanical Ventilator 30 11/29/19 23:00 95 56 145/83 (103) 98 11/29/19 22:30 98.6 113 44 155/103 (120) 99 11/29/19 22:00 90 72 137/80 (99) 99 11/29/19 22:00 16 Mechanical Ventilator 30 3/26/20 21:34 109 16 30 11/29/19 21:30 91 18 144/81 (102) 99 11/29/19 21:00 91 22 143/83 (103) 99 11/29/19 21:00 18 Mechanical Ventilator 30 11/29/19 20:53 88 147/84 11/29/19 20:30 92 20 147/85 (105) 98 11/29/19 20:00 30 11/29/19 20:00 Mechanical Ventilator Mechanical Ventilator Mechanical Ventilator 11/29/19 20:00 16 Mechanical Ventilator 30 11/29/19 20:00 98.8 100 21 141/82 (101) 98 11/29/19 20:00 92 11/29/19 19:17 95 16 30 11/29/19 19:00 99 18 141/83 (102) 98 11/29/19 19:00 18 Mechanical Ventilator 30 11/29/19 18:30 108 18 145/82 (103) 98 11/29/19 18:00 104 30 161/82 (108) 93 11/29/19 17:30 93 27 143/78 (99) 99 11/29/19 17:00 100 21 148/82 (104) 98 11/29/19 16:58 107 16 30 11/29/19 16:30 95 37 142/87 (105) 100 11/29/19 16:22 16 Mechanical Ventilator 30 11/29/19 16:00 100 11/29/19 16:00 Mechanical Ventilator Mechanical Ventilator Mechanical Ventilator 11/29/19 16:00 30 11/29/19 16:00 99 47 162/87 (112) 99 11/29/19 15:30 96 28 142/83 (102) 99 11/29/19 15:04 89 16 30 11/29/19 15:00 92 20 141/87 (105) 98 11/29/19 14:00 99 17 138/85 (102) 100 11/29/19 14:00 16 Mechanical Ventilator 30 11/29/19 13:30 92 17 125/70 (88) 100 11/29/19 13:00 103 17 145/91 (109) 100 11/29/19 13:00 16 Mechanical Ventilator 30 11/29/19 12:47 92 16 30 11/29/19 12:45 16 Mechanical Ventilator 30 11/29/19 12:30 98.7 97 17 137/79 (98) 99 11/29/19 12:03 86 20 100 11/29/19 12:01 82 20 100 11/29/19 12:00 30 11/29/19 12:00 Mechanical Ventilator Mechanical Ventilator Mechanical Ventilator 11/29/19 12:00 95 17 129/98 (108) 99 11/29/19 12:00 92 11/29/19 11:57 99/85 Status: sedated Condition: critical Neck: full ROM Lungs: rales, rhonchi Heart: HR/BP stable, regular Abdomen: soft, non-tender Extremities: no C/C/E Critical Care - Subjective ROS Limited/Unobtainable: No Condition: critical FI02: 30 Vent Support Breath Rate: 16 Vent Support Mode: AC Vent Tidal Volume: 550 Sputum Amount: Small PEEP: 0.0 PIP: 37 Tube Feeding Amount: 0 I&O: Intake and Output 11/29/19 11/30/19 19:00 07:00 Intake Total 572.5 ml 995 ml Output Total 1040 ml 850 ml Balance -467.5 ml 145 ml Free Water 150 ml 100 ml IV Total 297.5 ml 195 ml Tube Feeding 0 ml 0 ml Blood Product 125 ml 700 ml Output Urine Total 1040 ml 850 ml # Bowel Movements 2 3 CXR: right lower lobe infiltrate and effusion ET-Tube: 7.5 ET Position: 25 Labs: Laboratory Tests Test 11/29/19 16:40 11/30/19 03:40 White Blood Count 18.5 K/UL (4.8-10.8) H 17.5 K/UL (4.8-10.8) H Red Blood Count 2.36 M/UL (4.70-6.10) L 2.70 M/UL (4.70-6.10) L Hemoglobin 6.9 G/DL (14.2-18.0) *L 8.3 G/DL (14.2-18.0) L Hematocrit 21.8 % (42.0-52.0) L 24.4 % (42.0-52.0) L Mean Corpuscular Volume 92 FL (80-99) 90 FL (80-99) Mean Corpuscular Hemoglobin 29.0 PG (27.0-31.0) 30.7 PG (27.0-31.0) Mean Corpuscular Hemoglobin Concent 31.4 G/DL (32.0-36.0) L 34.0 G/DL (32.0-36.0) Red Cell Distribution Width 18.8 % (11.6-14.8) H 15.3 % (11.6-14.8) H Platelet Count 249 K/UL (150-450) 211 K/UL (150-450) Mean Platelet Volume 5.2 FL (6.5-10.1) L 4.6 FL (6.5-10.1) L Neutrophils (%) (Auto) 86.7 % (45.0-75.0) H % (45.0-75.0) Lymphocytes (%) (Auto) 6.1 % (20.0-45.0) L % (20.0-45.0) Monocytes (%) (Auto) 5.6 % (1.0-10.0) % (1.0-10.0) Eosinophils (%) (Auto) 0.9 % (0.0-3.0) % (0.0-3.0) Basophils (%) (Auto) 0.8 % (0.0-2.0) % (0.0-2.0) Differential Total Cells Counted 100 Neutrophils % (Manual) 88 % (45-75) H Lymphocytes % (Manual) 8 % (20-45) L Monocytes % (Manual) 3 % (1-10) Eosinophils % (Manual) 0 % (0-3) Basophils % (Manual) 1 % (0-2) Band Neutrophils 0 % (0-8) Platelet Estimate Adequate Platelet Morphology Normal Hypochromasia 2+ Anisocytosis 1+ Prothrombin Time 10.9 SEC (9.30-11.50) Prothromb Time International Ratio 1.0 (0.9-1.1) Activated Partial Thromboplast Time 32 SEC (23-33) Sodium Level 141 MMOL/L (136-145) Potassium Level 4.3 MMOL/L (3.5-5.1) Chloride Level 107 MMOL/L (98-107) Carbon Dioxide Level 26 MMOL/L (21-32) Anion Gap 8 mmol/L (5-15) Blood Urea Nitrogen 68 mg/dL (7-18) H Creatinine 5.1 MG/DL (0.55-1.30) H Estimat Glomerular Filtration Rate 13.2 mL/min (>60) Glucose Level 85 MG/DL (74-106) Calcium Level 8.6 MG/DL (8.5-10.1) Phosphorus Level 4.7 MG/DL (2.5-4.9) Magnesium Level 1.9 MG/DL (1.8-2.4) Total Bilirubin 0.3 MG/DL (0.2-1.0) Aspartate Amino Transf (AST/SGOT) 13 U/L (15-37) L Alanine Aminotransferase (ALT/SGPT) 8 U/L (12-78) L Alkaline Phosphatase 44 U/L (46-116) L Troponin I 0.000 ng/mL (0.000-0.056) Total Protein 5.8 G/DL (6.4-8.2) L Albumin 2.1 G/DL (3.4-5.0) L Globulin 3.7 g/dL Albumin/Globulin Ratio 0.6 (1.0-2.7) L Susannah Hightower MD Nov 30, 2019 11:55
--- NOTE | 2019-11-30 12:07 | Nephrology Progress Note ---
Assessment/Plan Problem List: (1) Acute on chronic renal insufficiency Assessment: Serum creatinine gradually decreasing (2) Acute hypercapnic respiratory failure (3) Anemia in chronic kidney disease (CKD) (4) BPH (benign prostatic hyperplasia) Assessment Acute renal failure Possible underlying chronic kidney failure Hyperkalemia Anemia other conditions: (1) Acute hypercapnic respiratory failure (2) Paroxysmal A-fib (3) Anemia, chronic renal failure (4) History of hypertension (5) Alzheimer's dementia (6) Chronic hepatitis (7) BPH (benign prostatic hyperplasia) Plan Patient n.p.o. Clonidine patch for high blood pressure while n.p.o. On Protonix drip, patient had GI bleed and was transfused 2 units of packed RBCs Will stop aspirin We will change blood pressure medication to IV Carafate through NG tube Per GI Slow hydration Nitrate Trial of Zaroxolyn as chest x-ray indicates worsening CHF as needed Monitor intake and output Monitor renal parameters Avoid nephrotoxic's Kidney ultrasound results noted indicative of chronicity 2D echocardiogram result noted ejection fraction 55% Anemia work-up noted Per orders Discussed with Dr. Zaidi Subjective ROS Limited/Unobtainable: Yes Objective Objective Last 24 Hour Vital Signs Date Time Temp Pulse Resp B/P (MAP) Pulse Ox O2 Delivery O2 Flow Rate FiO2 11/30/19 11:30 85 16 100 11/30/19 11:18 77 18 100 11/30/19 11:13 167/103 11/30/19 11:00 18 Mechanical Ventilator 30 11/30/19 10:54 73 16 30 11/30/19 10:00 18 Mechanical Ventilator 30 11/30/19 10:00 85 16 168/83 (111) 100 11/30/19 09:46 16 Mechanical Ventilator 30 11/30/19 09:45 16 Mechanical Ventilator 30 11/30/19 09:30 73 16 30 11/30/19 09:30 87 19 168/94 (118) 99 11/30/19 09:00 18 Mechanical Ventilator 30 11/30/19 09:00 79 131/84 11/30/19 09:00 79 131/84 11/30/19 09:00 73 17 131/84 (100) 99 11/30/19 08:30 98.2 77 17 136/80 (98) 99 11/30/19 08:00 16 Mechanical Ventilator 30 11/30/19 08:00 Mechanical Ventilator Mechanical Ventilator Mechanical Ventilator 11/30/19 08:00 30 11/30/19 08:00 16 155/84 (107) 99 11/30/19 07:00 16 Mechanical Ventilator 30 11/30/19 06:41 89 16 30 11/30/19 06:30 93 15 11/30/19 06:00 92 35 142/64 (90) 98 11/30/19 05:30 88 35 148/84 (105) 98 11/30/19 05:14 98 17 30 11/30/19 05:00 92 35 173/89 (117) 98 11/30/19 04:30 91 35 155/77 (103) 98 11/30/19 04:00 97.8 93 35 178/90 (119) 98 11/30/19 04:00 84 11/30/19 04:00 30 11/30/19 04:00 Mechanical Ventilator Mechanical Ventilator Mechanical Ventilator 11/30/19 03:30 79 35 139/85 (103) 98 11/30/19 03:30 72 16 30 11/30/19 03:00 85 35 148/84 (105) 98 11/30/19 02:30 94 35 148/90 (109) 98 11/30/19 02:00 103 35 163/102 (122) 98 11/30/19 01:30 20 Mechanical Ventilator 30 11/30/19 01:30 96 35 158/98 (118) 98 11/30/19 01:00 99 35 168/106 (126) 98 11/30/19 00:51 75 16 30 11/30/19 00:00 87 11/30/19 00:00 24 Mechanical Ventilator 100 11/30/19 00:00 30 11/30/19 00:00 88 35 153/87 (109) 98 11/30/19 00:00 Mechanical Ventilator Mechanical Ventilator Mechanical Ventilator 11/29/19 23:30 87 42 145/84 (104) 99 11/29/19 23:21 75 16 30 11/29/19 23:00 22 Mechanical Ventilator 30 11/29/19 23:00 95 56 145/83 (103) 98 11/29/19 22:30 98.6 113 44 155/103 (120) 99 11/29/19 22:00 90 72 137/80 (99) 99 11/29/19 22:00 16 Mechanical Ventilator 30 11/29/19 21:34 109 16 30 11/29/19 21:30 91 18 144/81 (102) 99 11/29/19 21:00 91 22 143/83 (103) 99 11/29/19 21:00 18 Mechanical Ventilator 30 11/29/19 20:53 88 147/84 11/29/19 20:30 92 20 147/85 (105) 98 11/29/19 20:00 30 11/29/19 20:00 Mechanical Ventilator Mechanical Ventilator Mechanical Ventilator 11/29/19 20:00 16 Mechanical Ventilator 30 11/29/19 20:00 98.8 100 21 141/82 (101) 98 11/29/19 20:00 92 11/29/19 19:17 95 16 30 11/29/19 19:00 99 18 141/83 (102) 98 11/29/19 19:00 18 Mechanical Ventilator 30 11/29/19 18:30 108 18 145/82 (103) 98 11/29/19 18:00 104 30 161/82 (108) 93 11/29/19 17:30 93 27 143/78 (99) 99 11/29/19 17:00 100 21 148/82 (104) 98 11/29/19 16:58 107 16 30 11/29/19 16:30 95 37 142/87 (105) 100 11/29/19 16:22 16 Mechanical Ventilator 30 11/29/19 16:00 100 11/29/19 16:00 Mechanical Ventilator Mechanical Ventilator Mechanical Ventilator 11/29/19 16:00 30 11/29/19 16:00 99 47 162/87 (112) 99 11/29/19 15:30 96 28 142/83 (102) 99 11/29/19 15:04 89 16 30 11/29/19 15:00 92 20 141/87 (105) 98 11/29/19 14:00 99 17 138/85 (102) 100 11/29/19 14:00 16 Mechanical Ventilator 30 11/29/19 13:30 92 17 125/70 (88) 100 11/29/19 13:00 103 17 145/91 (109) 100 11/29/19 13:00 16 Mechanical Ventilator 30 11/29/19 12:47 92 16 30 11/29/19 12:45 16 Mechanical Ventilator 30 11/29/19 12:30 98.7 97 17 137/79 (98) 99 Intake and Output 11/29/19 11/30/19 19:00 07:00 Intake Total 572.5 ml 995 ml Output Total 1040 ml 850 ml Balance -467.5 ml 145 ml Free Water 150 ml 100 ml IV Total 297.5 ml 195 ml Tube Feeding 0 ml 0 ml Blood Product 125 ml 700 ml Output Urine Total 1040 ml 850 ml # Bowel Movements 2 3 Laboratory Tests 11/29/19 16:40: White Blood Count 18.5H, Red Blood Count 2.36L, Hemoglobin 6.9*L, Hematocrit 21.8L, Mean Corpuscular Volume 92, Mean Corpuscular Hemoglobin 29.0, Mean Corpuscular Hemoglobin Concent 31.4L, Red Cell Distribution Width 18.8H, Platelet Count 249, Mean Platelet Volume 5.2L, Neutrophils (%) (Auto) 86.7H, Lymphocytes (%) (Auto) 6.1L, Monocytes (%) (Auto) 5.6, Eosinophils (%) (Auto) 0.9, Basophils (%) (Auto) 0.8 11/30/19 03:40: White Blood Count 17.5H, Red Blood Count 2.70L, Hemoglobin 8.3L, Hematocrit 24.4L, Mean Corpuscular Volume 90, Mean Corpuscular Hemoglobin 30.7, Mean Corpuscular Hemoglobin Concent 34.0, Red Cell Distribution Width 15.3H, Platelet Count 211, Mean Platelet Volume 4.6L, Neutrophils (%) (Auto) , Lymphocytes (%) (Auto) , Monocytes (%) (Auto) , Eosinophils (%) (Auto) , Basophils (%) (Auto) , Differential Total Cells Counted 100, Neutrophils % ( Manual) 88H, Lymphocytes % (Manual) 8L, Monocytes % (Manual) 3, Eosinophils % ( Manual) 0, Basophils % (Manual) 1, Band Neutrophils 0, Platelet Estimate Adequate, Platelet Morphology Normal, Hypochromasia 2+, Anisocytosis 1+, Prothrombin Time 10.9, Prothromb Time International Ratio 1.0, Activated Partial Thromboplast Time 32, Sodium Level 141, Potassium Level 4.3, Chloride Level 107, Carbon Dioxide Level 26, Anion Gap 8, Blood Urea Nitrogen 68H, Creatinine 5.1H, Estimat Glomerular Filtration Rate 13.2, Glucose Level 85, Calcium Level 8.6, Phosphorus Level 4.7, Magnesium Level 1.9, Total Bilirubin 0.3, Aspartate Amino Transf (AST/SGOT) 13L, Alanine Aminotransferase (ALT/SGPT) 8L, Alkaline Phosphatase 44L, Troponin I 0.000, Total Protein 5.8L, Albumin 2.1L , Globulin 3.7, Albumin/Globulin Ratio 0.6L Height (Feet): 5 Height (Inches): 10.00 Weight (Pounds): 210 General Appearance: no apparent distress EENT: other - Remains intubated and intubated and vented Cardiovascular: tachycardia Respiratory/Chest: decreased breath sounds Abdomen: distended Objective No change Reynold Ellison MD Nov 30, 2019 12:07
--- NOTE | 2019-11-30 12:12 | NUR ---
NURSE NOTES: Talked with Dr. Devine regarding KUB for NGT placement. He said it is coiled in stomach but it is okay to use.
--- NOTE | 2019-11-30 12:15 | Diagnostic Imaging Report ---
Indication: NG tube tube placement Technique: XRAY Abdomen 1v Comparison: 04/27/2020 Findings: NG tube coiled in the stomach. With the tip and side-port are within the stomach. Bowel gas pattern is nonspecific. No radiographic evidence to suggest free intraperitoneal air. Airspace disease partially visualized in the lower lungs. Degenerative changes of the spine. Impression: NG tube coiled in the stomach.
--- NOTE | 2019-11-30 13:31 | NUR ---
NURSE NOTES: US chest done. noted with small pleural effusion.
--- NOTE | 2019-11-30 13:44 | Diagnostic Imaging Report ---
Indication: Shortness of breath, pleural effusion Technique: US Chest Comparison: None Findings: Focused ultrasound scanning was performed of the chest to assess for the presence of pleural effusion. A small pleural effusion is noted on the right. No pleural effusion is noted on the left. Impression: Small right pleural effusion.
--- NOTE | 2019-11-30 13:58 | Infectious Diseases Prog Note ---
Assessment/Plan Assessment/Plan ASSESSMENT: This is an 83-year-old male. Afebrile Leukocytosis ( 2nd to GI bleed) improving Doubt Pneum (at this time) - Respiratory failure: m/l 2/2 CHF, elevated BNP) - Sp Cx PSA Probable UTI - UCX : PSA and ESBL E Coli GPC Bacteremia - BCx 11/21/19 Staph warneri 2/2 sets - BCx 11/22/19 - Neg - 2D Echo : No Veg 11/29 extubated SP EGD Congestive heart failure. Atrial fibrillation. Altered mental status. Urinary tract infection. Renal failure. Hypertension. Alzheimer's dementia. BPH P: DC IV Vanco # 9 Cont pt on IV Merrem # 7/10 , add Amikacin # 2/ 7 ( Urine coverage ) 11/23 Sp Rocephin # 4 Monitor CBC, CMP Monitor CXR Rsp support GI Follow Subjective Allergies: Coded Allergies: LISINOPRIL (Verified Allergy, Unknown, 11/21/19) SIMVASTATIN (Verified Allergy, Unknown, 11/21/19) TERAZOSIN (Verified Allergy, Unknown, 11/21/19) Subjective WBC improving extubated Objective Vital Signs Last 24 Hour Vital Signs Date Time Temp Pulse Resp B/P (MAP) Pulse Ox O2 Delivery O2 Flow Rate FiO2 11/30/19 13:00 102 17 170/86 (114) 98 11/30/19 12:43 95 16 30 11/30/19 12:39 144/73 11/30/19 12:30 90 17 144/73 (96) 99 11/30/19 12:00 30 11/30/19 12:00 Mechanical Ventilator Mechanical Ventilator Mechanical Ventilator 11/30/19 12:00 99.8 88 16 151/95 (113) 99 11/30/19 12:00 88 11/30/19 11:30 86 22 184/98 (126) 98 11/30/19 11:30 85 16 100 11/30/19 11:18 77 18 100 11/30/19 11:13 167/103 11/30/19 11:00 18 Mechanical Ventilator 30 11/30/19 11:00 82 18 167/103 (124) 99 11/30/19 10:54 73 16 30 11/30/19 10:30 78 15 155/88 (110) 100 11/30/19 10:00 18 Mechanical Ventilator 30 11/30/19 10:00 85 16 168/83 (111) 100 11/30/19 09:46 16 Mechanical Ventilator 30 11/30/19 09:45 16 Mechanical Ventilator 30 11/30/19 09:30 73 16 30 11/30/19 09:30 87 19 168/94 (118) 99 11/30/19 09:00 18 Mechanical Ventilator 30 11/30/19 09:00 79 131/84 11/30/19 09:00 79 131/84 11/30/19 09:00 73 17 131/84 (100) 99 11/30/19 08:30 98.2 77 17 136/80 (98) 99 11/30/19 08:00 16 Mechanical Ventilator 30 11/30/19 08:00 Mechanical Ventilator Mechanical Ventilator Mechanical Ventilator 11/30/19 08:00 30 11/30/19 08:00 84 11/30/19 08:00 16 155/84 (107) 99 11/30/19 07:00 16 Mechanical Ventilator 30 11/30/19 06:41 89 16 30 11/30/19 06:30 93 15 11/30/19 06:00 92 35 142/64 (90) 98 11/30/19 05:30 88 35 148/84 (105) 98 11/30/19 05:14 98 17 30 11/30/19 05:00 92 35 173/89 (117) 98 11/30/19 04:30 91 35 155/77 (103) 98 11/30/19 04:00 97.8 93 35 178/90 (119) 98 11/30/19 04:00 84 11/30/19 04:00 30 11/30/19 04:00 Mechanical Ventilator Mechanical Ventilator Mechanical Ventilator 11/30/19 03:30 79 35 139/85 (103) 98 11/30/19 03:30 72 16 30 11/30/19 03:00 85 35 148/84 (105) 98 11/30/19 02:30 94 35 148/90 (109) 98 11/30/19 02:00 103 35 163/102 (122) 98 11/30/19 01:30 20 Mechanical Ventilator 30 11/30/19 01:30 96 35 158/98 (118) 98 11/30/19 01:00 99 35 168/106 (126) 98 11/30/19 00:51 75 16 30 11/30/19 00:00 87 11/30/19 00:00 24 Mechanical Ventilator 100 11/30/19 00:00 30 11/30/19 00:00 88 35 153/87 (109) 98 11/30/19 00:00 Mechanical Ventilator Mechanical Ventilator Mechanical Ventilator 11/29/19 23:30 87 42 145/84 (104) 99 11/29/19 23:21 75 16 30 11/29/19 23:00 22 Mechanical Ventilator 30 11/29/19 23:00 95 56 145/83 (103) 98 11/29/19 22:30 98.6 113 44 155/103 (120) 99 11/29/19 22:00 90 72 137/80 (99) 99 11/29/19 22:00 16 Mechanical Ventilator 30 11/29/19 21:34 109 16 30 11/29/19 21:30 91 18 144/81 (102) 99 11/29/19 21:00 91 22 143/83 (103) 99 11/29/19 21:00 18 Mechanical Ventilator 30 11/29/19 20:53 88 147/84 11/29/19 20:30 92 20 147/85 (105) 98 11/29/19 20:00 30 11/29/19 20:00 Mechanical Ventilator Mechanical Ventilator Mechanical Ventilator 11/29/19 20:00 16 Mechanical Ventilator 30 11/29/19 20:00 98.8 100 21 141/82 (101) 98 11/29/19 20:00 92 11/29/19 19:17 95 16 30 11/29/19 19:00 99 18 141/83 (102) 98 11/29/19 19:00 18 Mechanical Ventilator 30 11/29/19 18:30 108 18 145/82 (103) 98 11/29/19 18:00 104 30 161/82 (108) 93 11/29/19 17:30 93 27 143/78 (99) 99 11/29/19 17:00 100 21 148/82 (104) 98 11/29/19 16:58 107 16 30 11/29/19 16:30 95 37 142/87 (105) 100 11/29/19 16:22 16 Mechanical Ventilator 30 11/29/19 16:00 100 11/29/19 16:00 Mechanical Ventilator Mechanical Ventilator Mechanical Ventilator 11/29/19 16:00 30 11/29/19 16:00 99 47 162/87 (112) 99 11/29/19 15:30 96 28 142/83 (102) 99 11/29/19 15:04 89 16 30 11/29/19 15:00 92 20 141/87 (105) 98 11/29/19 14:00 99 17 138/85 (102) 100 11/29/19 14:00 16 Mechanical Ventilator 30 Height (Feet): 5 Height (Inches): 10.00 Weight (Pounds): 210 HEENT: anicteric Respiratory/Chest: no respiratory distress Cardiovascular: regularly irregular Abdomen: soft, non tender Laboratory Tests Test 11/29/19 16:40 11/30/19 03:40 White Blood Count 18.5 K/UL (4.8-10.8) H 17.5 K/UL (4.8-10.8) H Red Blood Count 2.36 M/UL (4.70-6.10) L 2.70 M/UL (4.70-6.10) L Hemoglobin 6.9 G/DL (14.2-18.0) *L 8.3 G/DL (14.2-18.0) L Hematocrit 21.8 % (42.0-52.0) L 24.4 % (42.0-52.0) L Mean Corpuscular Volume 92 FL (80-99) 90 FL (80-99) Mean Corpuscular Hemoglobin 29.0 PG (27.0-31.0) 30.7 PG (27.0-31.0) Mean Corpuscular Hemoglobin Concent 31.4 G/DL (32.0-36.0) L 34.0 G/DL (32.0-36.0) Red Cell Distribution Width 18.8 % (11.6-14.8) H 15.3 % (11.6-14.8) H Platelet Count 249 K/UL (150-450) 211 K/UL (150-450) Mean Platelet Volume 5.2 FL (6.5-10.1) L 4.6 FL (6.5-10.1) L Neutrophils (%) (Auto) 86.7 % (45.0-75.0) H % (45.0-75.0) Lymphocytes (%) (Auto) 6.1 % (20.0-45.0) L % (20.0-45.0) Monocytes (%) (Auto) 5.6 % (1.0-10.0) % (1.0-10.0) Eosinophils (%) (Auto) 0.9 % (0.0-3.0) % (0.0-3.0) Basophils (%) (Auto) 0.8 % (0.0-2.0) % (0.0-2.0) Differential Total Cells Counted 100 Neutrophils % (Manual) 88 % (45-75) H Lymphocytes % (Manual) 8 % (20-45) L Monocytes % (Manual) 3 % (1-10) Eosinophils % (Manual) 0 % (0-3) Basophils % (Manual) 1 % (0-2) Band Neutrophils 0 % (0-8) Platelet Estimate Adequate Platelet Morphology Normal Hypochromasia 2+ Anisocytosis 1+ Prothrombin Time 10.9 SEC (9.30-11.50) Prothromb Time International Ratio 1.0 (0.9-1.1) Activated Partial Thromboplast Time 32 SEC (23-33) Sodium Level 141 MMOL/L (136-145) Potassium Level 4.3 MMOL/L (3.5-5.1) Chloride Level 107 MMOL/L (98-107) Carbon Dioxide Level 26 MMOL/L (21-32) Anion Gap 8 mmol/L (5-15) Blood Urea Nitrogen 68 mg/dL (7-18) H Creatinine 5.1 MG/DL (0.55-1.30) H Estimat Glomerular Filtration Rate 13.2 mL/min (>60) Glucose Level 85 MG/DL (74-106) Calcium Level 8.6 MG/DL (8.5-10.1) Phosphorus Level 4.7 MG/DL (2.5-4.9) Magnesium Level 1.9 MG/DL (1.8-2.4) Total Bilirubin 0.3 MG/DL (0.2-1.0) Aspartate Amino Transf (AST/SGOT) 13 U/L (15-37) L Alanine Aminotransferase (ALT/SGPT) 8 U/L (12-78) L Alkaline Phosphatase 44 U/L (46-116) L Troponin I 0.000 ng/mL (0.000-0.056) Total Protein 5.8 G/DL (6.4-8.2) L Albumin 2.1 G/DL (3.4-5.0) L Globulin 3.7 g/dL Albumin/Globulin Ratio 0.6 (1.0-2.7) L Current Medications Medications (Trade) Dose Ordered Sig/Cyndi Route PRN Reason Start Time Stop Time Status Last Admin Dose Admin Acetaminophen (Tylenol) 650 mg Q4H PRN NG Fever 11/21/19 13:00 12/21/19 08:14 11/28/19 16:19 Acetaminophen (Tylenol) 650 mg Q4H PRN ORAL Mild Pain (Pain Scale 1-3) 11/30/19 09:45 11/30/19 17:45 Al Hydroxide/Mg Hydroxide (Mylanta) 15 ml Q1H PRN ORAL gi upset 11/30/19 09:45 11/30/19 17:45 Amikacin Protocol (Amikacin pharmacy to dose) 1 ea DAILY PRN MISC Per rx protocol 11/29/19 15:00 12/29/19 14:59 Amlodipine Besylate (Norvasc) 2.5 mg DAILY NG 11/27/19 12:45 12/27/19 12:44 11/29/19 09:03 Atropine Sulfate (Atropine) 0.5 mg Q5M PRN IV bpm less than 45 BPM 11/30/19 09:45 11/30/19 17:45 Chlorhexidine Gluconate (Corrie-Hex 2%) 1 applic DAILY@2000 TOPIC 11/27/19 20:00 02/25/20 19:59 11/29/19 20:52 Clonidine HCl (Catapres TTS-3) 1 patch QWEEK TDERMAL 11/30/19 13:00 02/28/20 12:59 11/30/19 12:39 Dextrose (Dextrose 50%) 25 ml Q30M PRN IV Hypoglycemia 11/21/19 08:15 02/19/20 08:14 Dextrose (Dextrose 50%) 50 ml Q30M PRN IV Hypoglycemia 11/21/19 08:15 02/19/20 08:14 Diphenhydramine HCl (Benadryl) 25 mg Q15M PRN IVP Itching 11/30/19 09:45 11/30/19 17:45 Docusate Sodium (Colace) 100 mg THREE TIMES A DAY NG 11/21/19 13:00 12/21/19 12:59 11/30/19 12:34 Fentanyl Citrate (Sublimaze 100 mcg/2 mL) 25 mcg Q10M PRN IV Moderate Pain (Pain Scale 4-6) 11/30/19 09:45 11/30/19 17:45 Fentanyl Citrate 2500 mcg/Sodium Chloride 250 ml @ 0 mls/hr Q24H IV 11/29/19 16:00 12/06/19 15:59 11/30/19 09:46 Hydralazine HCl (Apresoline) 5 mg Q30M PRN IV SBP>160 /DBP>90 11/30/19 09:45 11/30/19 17:45 Hydralazine HCl (Apresoline) 10 mg Q4H PRN IV BP over 160 sys 11/29/19 13:30 02/27/20 13:29 Meropenem 500 mg/ Sodium Chloride 55 ml @ 110 mls/hr Q12HR IVPB 11/25/19 14:00 12/05/19 23:59 11/30/19 09:11 Metoclopramide HCl (Reglan) 5 mg Q8H IVP 11/30/19 18:00 12/30/19 17:59 Metoprolol Tartrate (Lopressor) 50 mg Q12HR NG 11/28/19 21:00 02/19/20 20:59 11/29/19 20:53 Midazolam HCl (Versed 2mg/2ml vial) 1 mg Q15M PRN IVP For Anxiety 11/30/19 09:45 11/30/19 17:45 Nitroglycerin (Ntg) 1 patch Q24H TDERMAL 11/22/19 11:00 12/22/19 10:59 11/30/19 11:13 Ondansetron HCl (Zofran) 4 mg Q1H PRN IVP Nausea & Vomiting 11/30/19 09:45 11/30/19 17:45 Ondansetron HCl (Zofran) 4 mg Q6H PRN IVP Nausea & Vomiting 11/21/19 08:15 12/21/19 08:14 Pantoprazole 80 mg/Sodium Chloride 250 ml @ 25 mls/hr Q10H IV 11/29/19 11:30 12/29/19 11:29 11/30/19 07:40 Polyethylene Glycol (Miralax) 17 gm DAILYPRN PRN NG Constipation 11/21/19 13:00 12/21/19 08:14 Sucralfate (Carafate) 1 gm FOUR TIMES A DAY NG 11/29/19 13:30 02/27/20 13:29 11/30/19 12:34 Vancomycin HCl (Vanco rx to dose) 1 ea DAILY PRN MISC Per rx protocol 11/22/19 14:45 12/22/19 14:44 Mike Hicks MD Nov 30, 2019 13:58
--- NOTE | 2019-11-30 14:02 | NUR ---
NURSE NOTES: Canceled thoracentesis. Patient is not candidate. No indication for thoracentesis.
--- NOTE | 2019-11-30 14:47 | Cardiology Progress Note ---
Assessment/Plan Assessment/Plan 1. Permanent versus paroxysmal episodes of atrial fibrillation. 2. Tachycardia. 3. Renal insufficiency. 4. Obstructive uropathy. 5. History of hypertension. 6. Prostatic hypertrophy. 7. History of latent tuberculosis. 8. History of heart failure. 9. History of hepatitis C infection. 10. Respiratory failure with respiratory acidosis, now on vent 11. melanotic stool 12 large gastric clot cxr personally reviewed tele personally reviewed ekg reviewed bp seems no taking po meds torp abn likely due to renal insuf off heparin due to gi bleed s/p 3 unit f prbc bp is fine d/w rn need to be in neg fluid balance rate control with iv bb egd not successful again du to persistent due to large clot present in the ge junction Subjective ROS Limited/Unobtainable: Yes Subjective vent isolation Objective Last 24 Hour Vital Signs Date Time Temp Pulse Resp B/P (MAP) Pulse Ox O2 Delivery O2 Flow Rate FiO2 11/30/19 14:00 16 Mechanical Ventilator 30 11/30/19 13:00 102 17 170/86 (114) 98 11/30/19 13:00 18 Mechanical Ventilator 30 11/30/19 12:43 95 16 30 11/30/19 12:39 144/73 11/30/19 12:30 90 17 144/73 (96) 99 11/30/19 12:00 30 11/30/19 12:00 16 Mechanical Ventilator 30 11/30/19 12:00 Mechanical Ventilator Mechanical Ventilator Mechanical Ventilator 11/30/19 12:00 99.8 88 16 151/95 (113) 99 11/30/19 12:00 88 11/30/19 11:30 86 22 184/98 (126) 98 11/30/19 11:30 85 16 100 11/30/19 11:18 77 18 100 11/30/19 11:13 167/103 11/30/19 11:00 18 Mechanical Ventilator 30 11/30/19 11:00 82 18 167/103 (124) 99 11/30/19 10:54 73 16 30 11/30/19 10:30 78 15 155/88 (110) 100 11/30/19 10:00 18 Mechanical Ventilator 30 11/30/19 10:00 85 16 168/83 (111) 100 11/30/19 09:46 16 Mechanical Ventilator 30 11/30/19 09:45 16 Mechanical Ventilator 30 11/30/19 09:30 73 16 30 11/30/19 09:30 87 19 168/94 (118) 99 11/30/19 09:00 18 Mechanical Ventilator 30 11/30/19 09:00 79 131/84 11/30/19 09:00 79 131/84 11/30/19 09:00 73 17 131/84 (100) 99 11/30/19 08:30 98.2 77 17 136/80 (98) 99 11/30/19 08:00 16 Mechanical Ventilator 30 11/30/19 08:00 Mechanical Ventilator Mechanical Ventilator Mechanical Ventilator 11/30/19 08:00 30 11/30/19 08:00 84 11/30/19 08:00 16 155/84 (107) 99 11/30/19 07:00 16 Mechanical Ventilator 30 11/30/19 06:41 89 16 30 11/30/19 06:30 93 15 11/30/19 06:00 92 35 142/64 (90) 98 11/30/19 05:30 88 35 148/84 (105) 98 11/30/19 05:14 98 17 30 11/30/19 05:00 92 35 173/89 (117) 98 11/30/19 04:30 91 35 155/77 (103) 98 11/30/19 04:00 97.8 93 35 178/90 (119) 98 11/30/19 04:00 84 11/30/19 04:00 30 11/30/19 04:00 Mechanical Ventilator Mechanical Ventilator Mechanical Ventilator 11/30/19 03:30 79 35 139/85 (103) 98 11/30/19 03:30 72 16 30 11/30/19 03:00 85 35 148/84 (105) 98 11/30/19 02:30 94 35 148/90 (109) 98 11/30/19 02:00 103 35 163/102 (122) 98 11/30/19 01:30 20 Mechanical Ventilator 30 11/30/19 01:30 96 35 158/98 (118) 98 11/30/19 01:00 99 35 168/106 (126) 98 11/30/19 00:51 75 16 30 11/30/19 00:00 87 11/30/19 00:00 24 Mechanical Ventilator 100 11/30/19 00:00 30 11/30/19 00:00 88 35 153/87 (109) 98 11/30/19 00:00 Mechanical Ventilator Mechanical Ventilator Mechanical Ventilator 11/29/19 23:30 87 42 145/84 (104) 99 11/29/19 23:21 75 16 30 11/29/19 23:00 22 Mechanical Ventilator 30 11/29/19 23:00 95 56 145/83 (103) 98 11/29/19 22:30 98.6 113 44 155/103 (120) 99 11/29/19 22:00 90 72 137/80 (99) 99 11/29/19 22:00 16 Mechanical Ventilator 30 11/29/19 21:34 109 16 30 11/29/19 21:30 91 18 144/81 (102) 99 11/29/19 21:00 91 22 143/83 (103) 99 11/29/19 21:00 18 Mechanical Ventilator 30 11/29/19 20:53 88 147/84 11/29/19 20:30 92 20 147/85 (105) 98 11/29/19 20:00 30 11/29/19 20:00 Mechanical Ventilator Mechanical Ventilator Mechanical Ventilator 11/29/19 20:00 16 Mechanical Ventilator 30 11/29/19 20:00 98.8 100 21 141/82 (101) 98 11/29/19 20:00 92 11/29/19 19:17 95 16 30 11/29/19 19:00 99 18 141/83 (102) 98 11/29/19 19:00 18 Mechanical Ventilator 30 11/29/19 18:30 108 18 145/82 (103) 98 11/29/19 18:00 104 30 161/82 (108) 93 11/29/19 17:30 93 27 143/78 (99) 99 11/29/19 17:00 100 21 148/82 (104) 98 11/29/19 16:58 107 16 30 11/29/19 16:30 95 37 142/87 (105) 100 11/29/19 16:22 16 Mechanical Ventilator 30 11/29/19 16:00 100 11/29/19 16:00 Mechanical Ventilator Mechanical Ventilator Mechanical Ventilator 11/29/19 16:00 30 11/29/19 16:00 99 47 162/87 (112) 99 11/29/19 15:30 96 28 142/83 (102) 99 11/29/19 15:04 89 16 30 11/29/19 15:00 92 20 141/87 (105) 98 General Appearance: no apparent distress, on vent, patient on isolation Cardiovascular: normal rate, irregularly irregular Respiratory/Chest: lungs clear Abdomen: normal bowel sounds, non tender, soft Extremities: no swelling Intake and Output 11/29/19 11/30/19 19:00 07:00 Intake Total 572.5 ml 995 ml Output Total 1040 ml 930 ml Balance -467.5 ml 65 ml Free Water 150 ml 100 ml IV Total 297.5 ml 195 ml Tube Feeding 0 ml 0 ml Blood Product 125 ml 700 ml Output Urine Total 1040 ml 930 ml # Bowel Movements 2 3 Laboratory Tests Test 11/29/19 16:40 11/30/19 03:40 White Blood Count 18.5 K/UL (4.8-10.8) H 17.5 K/UL (4.8-10.8) H Red Blood Count 2.36 M/UL (4.70-6.10) L 2.70 M/UL (4.70-6.10) L Hemoglobin 6.9 G/DL (14.2-18.0) *L 8.3 G/DL (14.2-18.0) L Hematocrit 21.8 % (42.0-52.0) L 24.4 % (42.0-52.0) L Mean Corpuscular Volume 92 FL (80-99) 90 FL (80-99) Mean Corpuscular Hemoglobin 29.0 PG (27.0-31.0) 30.7 PG (27.0-31.0) Mean Corpuscular Hemoglobin Concent 31.4 G/DL (32.0-36.0) L 34.0 G/DL (32.0-36.0) Red Cell Distribution Width 18.8 % (11.6-14.8) H 15.3 % (11.6-14.8) H Platelet Count 249 K/UL (150-450) 211 K/UL (150-450) Mean Platelet Volume 5.2 FL (6.5-10.1) L 4.6 FL (6.5-10.1) L Neutrophils (%) (Auto) 86.7 % (45.0-75.0) H % (45.0-75.0) Lymphocytes (%) (Auto) 6.1 % (20.0-45.0) L % (20.0-45.0) Monocytes (%) (Auto) 5.6 % (1.0-10.0) % (1.0-10.0) Eosinophils (%) (Auto) 0.9 % (0.0-3.0) % (0.0-3.0) Basophils (%) (Auto) 0.8 % (0.0-2.0) % (0.0-2.0) Differential Total Cells Counted 100 Neutrophils % (Manual) 88 % (45-75) H Lymphocytes % (Manual) 8 % (20-45) L Monocytes % (Manual) 3 % (1-10) Eosinophils % (Manual) 0 % (0-3) Basophils % (Manual) 1 % (0-2) Band Neutrophils 0 % (0-8) Platelet Estimate Adequate Platelet Morphology Normal Hypochromasia 2+ Anisocytosis 1+ Prothrombin Time 10.9 SEC (9.30-11.50) Prothromb Time International Ratio 1.0 (0.9-1.1) Activated Partial Thromboplast Time 32 SEC (23-33) Sodium Level 141 MMOL/L (136-145) Potassium Level 4.3 MMOL/L (3.5-5.1) Chloride Level 107 MMOL/L (98-107) Carbon Dioxide Level 26 MMOL/L (21-32) Anion Gap 8 mmol/L (5-15) Blood Urea Nitrogen 68 mg/dL (7-18) H Creatinine 5.1 MG/DL (0.55-1.30) H Estimat Glomerular Filtration Rate 13.2 mL/min (>60) Glucose Level 85 MG/DL (74-106) Calcium Level 8.6 MG/DL (8.5-10.1) Phosphorus Level 4.7 MG/DL (2.5-4.9) Magnesium Level 1.9 MG/DL (1.8-2.4) Total Bilirubin 0.3 MG/DL (0.2-1.0) Aspartate Amino Transf (AST/SGOT) 13 U/L (15-37) L Alanine Aminotransferase (ALT/SGPT) 8 U/L (12-78) L Alkaline Phosphatase 44 U/L (46-116) L Troponin I 0.000 ng/mL (0.000-0.056) Total Protein 5.8 G/DL (6.4-8.2) L Albumin 2.1 G/DL (3.4-5.0) L Globulin 3.7 g/dL Albumin/Globulin Ratio 0.6 (1.0-2.7) L Vasu Zaidi MD Nov 30, 2019 14:47
--- NOTE | 2019-11-30 16:02 | NUR ---
NURSE NOTES: Bed bath given.
--- NOTE | 2019-11-30 16:15 | Procedure Note ---
DATE OF PROCEDURE: 11/30/2019 SURGEON: Hunter Sierra M.D. PROCEDURE: Upper endoscopy with biopsy. ANESTHESIA: Per Dr. Mcdaniel. INSTRUMENT: Olympus adult flexible upper endoscope. INDICATION: Upper GI bleeding. REASON FOR PROCEDURE: The procedure, risks, benefits, and possible consequences, including hemorrhage, aspiration, perforation and infection, and alternative treatments, were explained to the patient/legal guardian by Dr. Hunter Sierra and the patient/legal guardian understood and accepted these risks. DESCRIPTION OF PROCEDURE: After informed consent was obtained and the patient was adequately sedated, Olympus upper endoscope was advanced from the mouth into the second portion of the duodenum and retroflexion was performed in the stomach. The patient still had a very large blood clot sitting below the GE junction, in the cardia of the stomach. We were able to wash a little bit and we were able to see at least two ulcers with the clots attaching to them. These ulcers were in the cardia and there was more acting underneath clots. At this time, there was no active bleeding. Random biopsies from antrum was obtained. Then, we placed NG-tube for medication and possible future feeding. At this time, the procedure was terminated. SUMMARY OF FINDINGS: 1. Blood clost sitting below the GE junction covering the cardia of the stomach, unable to see the underneath clots. 2. At least two ulcers seen in the cardia of the stomach. 3. Gastritis, status post biopsy. 4. Status post successful NG tube placement. RECOMMENDATIONS: Keep the patient NPO for now. Continue on Protonix drip. Monitor hemoglobin and hematocrit. Transfuse as needed to keep hemoglobin above 7. Then, we were going to start the Reglan to clean up the stomach. Consider another endoscopy if the patient rebleeds. Otherwise, we are going to consider doing a G-tube feeding tomorrow if the patient is stable. I want to thank, Dr. Garza, for this kind referral. Hunter Sierra M.D. DR: ALICIA JOB#: [id number] CC: Claude Garza M.D.; Fax#: [phone]
[2019-11-30] MEDS: Metoclopramide 10mg/2ml Inj IVP SCH (17:19)
--- NOTE | 2019-11-30 17:42 | NUR ---
NURSE NOTES: Left message to Dr. Zaidi that patient's troponin 0.482. Will follow up.
--- NOTE | 2019-11-30 17:55 | NUR ---
NURSE NOTES: Provided oral care. Kept dry, clean and comfortable.
--- NOTE | 2019-11-30 19:14 | NUR ---
HAND-OFF: Report given to SYED Foster. Endorsed plan of care.
--- NOTE | 2019-11-30 19:41 | NUR ---
NURSE NOTES: received report from delores rn pt orally intubated o2 sat 100 % no acute resp distress noted reposition and suction on fent drion at 300mcg /hr urenary output good
[2019-11-30] MEDS: Dyna-Hex 2% Top Sol 2oz TOPIC SCH (20:21)
--- NOTE | 2019-11-30 22:00 | NUR ---
NURSE NOTES: asleep reposition and suction
--- NOTE | 2019-11-30 22:25 | Internal Med Progress Note ---
Subjective Physician Name Claude Garza Attending Physician Claude Garza MD Current Medications Medications (Trade) Dose Ordered Sig/Cyndi Route PRN Reason Start Time Stop Time Status Last Admin Dose Admin Acetaminophen (Tylenol) 650 mg Q4H PRN NG Fever 11/21/19 13:00 12/21/19 08:14 11/28/19 16:19 Amikacin Protocol (Amikacin pharmacy to dose) 1 ea DAILY PRN MISC Per rx protocol 11/29/19 15:00 12/29/19 14:59 Amlodipine Besylate (Norvasc) 2.5 mg DAILY NG 11/27/19 12:45 12/27/19 12:44 11/29/19 09:03 Chlorhexidine Gluconate (Corrie-Hex 2%) 1 applic DAILY@2000 TOPIC 11/27/19 20:00 02/25/20 19:59 11/30/19 20:21 Clonidine HCl (Catapres TTS-3) 1 patch QWEEK TDERMAL 11/30/19 13:00 02/28/20 12:59 11/30/19 12:39 Dextrose (Dextrose 50%) 25 ml Q30M PRN IV Hypoglycemia 11/21/19 08:15 02/19/20 08:14 Dextrose (Dextrose 50%) 50 ml Q30M PRN IV Hypoglycemia 11/21/19 08:15 02/19/20 08:14 Docusate Sodium (Colace) 100 mg THREE TIMES A DAY NG 11/21/19 13:00 12/21/19 12:59 11/30/19 17:18 Fentanyl Citrate 2500 mcg/Sodium Chloride 250 ml @ 0 mls/hr Q24H IV 11/29/19 16:00 12/06/19 15:59 11/30/19 18:07 Hydralazine HCl (Apresoline) 10 mg Q4H PRN IV BP over 160 sys 11/29/19 13:30 02/27/20 13:29 Meropenem 500 mg/ Sodium Chloride 55 ml @ 110 mls/hr Q12HR IVPB 11/25/19 14:00 12/05/19 23:59 11/30/19 20:44 Metoclopramide HCl (Reglan) 5 mg Q8H IVP 11/30/19 18:00 12/30/19 17:59 11/30/19 17:19 Metoprolol Tartrate (Lopressor) 50 mg Q12HR NG 11/28/19 21:00 02/19/20 20:59 11/30/19 20:34 Nitroglycerin (Ntg) 1 patch Q24H TDERMAL 11/22/19 11:00 12/22/19 10:59 11/30/19 11:13 Ondansetron HCl (Zofran) 4 mg Q6H PRN IVP Nausea & Vomiting 11/21/19 08:15 12/21/19 08:14 Pantoprazole 80 mg/Sodium Chloride 250 ml @ 25 mls/hr Q10H IV 11/29/19 11:30 12/29/19 11:29 11/30/19 17:18 Polyethylene Glycol (Miralax) 17 gm DAILYPRN PRN NG Constipation 11/21/19 13:00 12/21/19 08:14 Sucralfate (Carafate) 1 gm FOUR TIMES A DAY NG 11/29/19 13:30 02/27/20 13:29 11/30/19 20:34 Allergies: Coded Allergies: LISINOPRIL (Verified Allergy, Unknown, 11/21/19) SIMVASTATIN (Verified Allergy, Unknown, 11/21/19) TERAZOSIN (Verified Allergy, Unknown, 11/21/19) Subjective in ICU, intubated, open eyes, sedated, S/P EGD due to Upper GI Bleeding today. Hgb: 8.3 Objective Last Vital Signs Date Time Temp Pulse Resp B/P (MAP) Pulse Ox O2 Delivery O2 Flow Rate FiO2 11/30/19 21:00 98 20 130/74 (92) 98 11/30/19 21:00 Mechanical Ventilator 30 11/30/19 16:00 99.1 Laboratory Tests Test 11/30/19 03:40 11/30/19 18:10 White Blood Count 17.5 K/UL (4.8-10.8) H Red Blood Count 2.70 M/UL (4.70-6.10) L Hemoglobin 8.3 G/DL (14.2-18.0) L Hematocrit 24.4 % (42.0-52.0) L Mean Corpuscular Volume 90 FL (80-99) Mean Corpuscular Hemoglobin 30.7 PG (27.0-31.0) Mean Corpuscular Hemoglobin Concent 34.0 G/DL (32.0-36.0) Red Cell Distribution Width 15.3 % (11.6-14.8) H Platelet Count 211 K/UL (150-450) Mean Platelet Volume 4.6 FL (6.5-10.1) L Neutrophils (%) (Auto) % (45.0-75.0) Lymphocytes (%) (Auto) % (20.0-45.0) Monocytes (%) (Auto) % (1.0-10.0) Eosinophils (%) (Auto) % (0.0-3.0) Basophils (%) (Auto) % (0.0-2.0) Differential Total Cells Counted 100 Neutrophils % (Manual) 88 % (45-75) H Lymphocytes % (Manual) 8 % (20-45) L Monocytes % (Manual) 3 % (1-10) Eosinophils % (Manual) 0 % (0-3) Basophils % (Manual) 1 % (0-2) Band Neutrophils 0 % (0-8) Platelet Estimate Adequate Platelet Morphology Normal Hypochromasia 2+ Anisocytosis 1+ Prothrombin Time 10.9 SEC (9.30-11.50) Prothromb Time International Ratio 1.0 (0.9-1.1) Activated Partial Thromboplast Time 32 SEC (23-33) Sodium Level 141 MMOL/L (136-145) Potassium Level 4.3 MMOL/L (3.5-5.1) Chloride Level 107 MMOL/L (98-107) Carbon Dioxide Level 26 MMOL/L (21-32) Anion Gap 8 mmol/L (5-15) Blood Urea Nitrogen 68 mg/dL (7-18) H Creatinine 5.1 MG/DL (0.55-1.30) H Estimat Glomerular Filtration Rate 13.2 mL/min (>60) Glucose Level 85 MG/DL (74-106) Calcium Level 8.6 MG/DL (8.5-10.1) Phosphorus Level 4.7 MG/DL (2.5-4.9) Magnesium Level 1.9 MG/DL (1.8-2.4) Total Bilirubin 0.3 MG/DL (0.2-1.0) Aspartate Amino Transf (AST/SGOT) 13 U/L (15-37) L Alanine Aminotransferase (ALT/SGPT) 8 U/L (12-78) L Alkaline Phosphatase 44 U/L (46-116) L Troponin I 0.000 ng/mL (0.000-0.056) Total Protein 5.8 G/DL (6.4-8.2) L Albumin 2.1 G/DL (3.4-5.0) L Globulin 3.7 g/dL Albumin/Globulin Ratio 0.6 (1.0-2.7) L Random Amikacin Level 11.2 MG/L Intake and Output 11/29/19 11/30/19 19:00 07:00 Intake Total 572.5 ml 995 ml Output Total 1040 ml 930 ml Balance -467.5 ml 65 ml Free Water 150 ml 100 ml IV Total 297.5 ml 195 ml Tube Feeding 0 ml 0 ml Blood Product 125 ml 700 ml Output Urine Total 1040 ml 930 ml # Bowel Movements 2 3 Objective General: Intubated, open eyes with deep stimuli, sedated. HEENT: NCAT, sclera anicteric, PERRL, EOMI, ET tube, NGT. Neck: Supple, no significant jugular venous distention, Lungs: Mechanical breath sound, no Wheeze or Rales. Heart: Regular rate and rhythm, normal S1/S2, no murmur. Abdomen: soft, nontender, nondistended, bowel sounds presented, obesity. : Patiño Cath. Extremities: No Cyanosis , clubbing or edema. Neuro: Able to move all extremities slowly. Skin: warm, no rash. Psych: Normal mood and affect. Assessment/Plan Assessment/Plan ASSESSMENT: This is an 83-year-old male. 1. Acute hypercapnia respiratory failure. 2. Congestive heart failure. 3. Atrial fibrillation. 4. Altered mental status. 5. ESBL E. Coli and Pseudomonas Urinary tract infection. 6. DOLLY on Chronic Renal failure. 7. Hypertension. 8. Alzheimer's dementia. 9. Benign prostatic hypertrophy. 10. Acute upper GI bleeding. TREATMENT: 1. Congestive heart failure. A Cardiology consultation has been obtained with Dr. Vasu Zaidi. We will follow recommendations of Cardiology. The patient is currently receiving intravenous Lasix. 2. Respiratory failure. A Pulmonary consultation has been obtained with Dr. Susannah Hightower. The patient is currently intubated in the intensive care unit. We will follow recommendations of Pulmonary. ABX=Amikacin IV and Meropenem IV per ID=Dr Hicks 3. Atrial fibrillation as above. A Cardiology consultation has been obtained with Dr. Vasu Zaidi. 4. Renal failure. A Nephrology consultation has been obtained with Dr. Ellison. We will follow recommendations of Nephrology. 5. Hypertension. The patient is currently hypotensive in the intensive care unit. 6. Alzheimer's dementia. 7. Benign prostatic hypertrophy. 8. Acute upper GI Bleeding S/P EGD X 2, Dr. Sierra Hold ASA Full code DVT Prophylaxis: SCD F/U with labs and cultures 2nd EGD (11/30/2019) 1. Blood clot sitting below the GE junction covering the cardia of the stomach, unable to see the underneath clots. 2. At least two ulcers seen in the cardia of the stomach. 3. Gastritis, status post biopsy. 4. Status post successful NG tube placement. Claude Garza MD Nov 30, 2019 22:25
[2019-12-01] VITALS (46 sets, daily range): BP systolic 123–194; BP diastolic 65–161
--- NOTE | 2019-12-01 | NUR ---
NURSE NOTES: reposition and suction no distress noted
--- NOTE | 2019-12-01 02:00 | NUR ---
NURSE NOTES: awake and alert follows command
[2019-12-01] MEDS: Pantoprazole 80 MG in NS 250 ML IV SCH ×2 (03:15→13:53)
[2019-12-01] MEDS: fentaNYL Citrate 2500mcg in NS 250ml IV SCH ×3 (03:17→22:44)
[2019-12-01] MEDS: Metoclopramide 10mg/2ml Inj IVP SCH ×3 (03:31→17:13)
--- NOTE | 2019-12-01 04:00 | NUR ---
NURSE NOTES: complete bed bath oral care back care reposition and suction urinary output good marlen soft restraint non complaints
[2019-12-01 05:33] LABS: BASOPHILS % (AUTO) 0.8 % (0.0-2.0); EOSINOPHILS % (AUTO) 2.2 % (0.0-3.0); HEMATOCRIT 24.1 % (42.0-52.0); HEMOGLOBIN 8.1 G/DL (14.2-18.0); LYMPHOCYTES % (AUTO) 10.5 % (20.0-45.0); MEAN CORPUSCULAR VOLUME 91 FL (80-99); MONOCYTES % (AUTO) 7.7 % (1.0-10.0); NEUTROPHILS % (AUTO) 78.8 % (45.0-75.0); PLATELET COUNT 234 K/UL (150-450); RED BLOOD COUNT 2.65 M/UL (4.70-6.10); RED CELL DISTRIBUTION WIDTH 16.2 % (11.6-14.8); WHITE BLOOD COUNT 14.8 K/UL (4.8-10.8)
--- NOTE | 2019-12-01 06:00 | NUR ---
NURSE NOTES: ASLEEP SEDATED WITH FENT DRIP AT 300MCG /HR
[2019-12-01 06:09] LABS: ANION GAP 12 mmol/L (5-15); BLOOD UREA NITROGEN 68 mg/dL (7-18); CALCIUM 8.6 MG/DL (8.5-10.1); CARBON DIOXIDE 21 MMOL/L (21-32); CHLORIDE 107 MMOL/L (98-107); CREATININE 5.2 MG/DL (0.55-1.30); POTASSIUM 4.5 MMOL/L (3.5-5.1); SODIUM 140 MMOL/L (136-145)
[2019-12-01 06:23] LABS: ALANINE AMINOTRANSFERASE 8 U/L (12-78); ALBUMIN 2.2 G/DL (3.4-5.0); ALKALINE PHOSPHATASE 46 U/L (46-116); ASPARTATE AMINO TRANSFERASE 21 U/L (15-37); BILIRUBIN,TOTAL 0.2 MG/DL (0.2-1.0); PHOSPHORUS 4.9 MG/DL (2.5-4.9)
[2019-12-01 06:24] LABS: BILIRUBIN,DIRECT < 0.1 MG/DL (0.0-0.3)
--- NOTE | 2019-12-01 07:00 | NUR ---
RESPIRATORY NOTES: Received Patient on Vent Settings ACVC VT 550, RR 16, 30% FIO2, PEEP +0. Patient is intubated with 7.5 ETT with a lip line of 25cm, secured with anchor fast. Suctioned minimal amount of thin clear secretions through ETT and mouth. Vent plugged into red outlet. Alarms are on and audible. Will continue to monitor throughout the day.
--- NOTE | 2019-12-01 07:16 | NUR ---
HAND-OFF: Report given to .OLIVIA LYNCH USING SBAR
--- NOTE | 2019-12-01 08:30 | NUR ---
NURSE NOTES: Heart rate increased to 130-150 while preforming suctioning, thick clear secretions noted through ET-tube. heart rate now decreased to 76-85pbm and remains in A-fibb.
--- NOTE | 2019-12-01 08:35 | Pulmonolgy Critical Care Note ---
Critical Care - Asmt/Plan Problems: (1) Acute hypercapnic respiratory failure (2) Paroxysmal A-fib (3) Anemia, chronic renal failure (4) Acute on chronic renal insufficiency (5) Chronic hepatitis (6) Moderate pulmonary arterial systolic hypertension (7) Left ventricular ejection fraction greater than or equal to 40 percent (8) History of hypertension (9) Alzheimer's dementia (10) BPH (benign prostatic hyperplasia) Respiratory: monitor respiratory rate, adjust FIO2, other - US of chest didn't show much fluids Cardiac: continue to monitor HR/BP Renal: F/U I&O, check electrolytes, other - d5 1/2 at 50 cc/hour Infectious Disease: check cultures Gastrointestinal: continue feedings/current rate, other - NPO Endocrine: monitor blood sugar Hematologic: monitor H/H, transfuse if hgb<8.5 Neurologic: PRN Ativan, PRN Morphine Affect: PRN ativan Disposition: keep in ICU Notes Reviewed: tactical air control party manager, cardio Discussed with: nurses, consultants, manager case managementclient delivery manager - Objective Last 24 Hour Vital Signs Date Time Temp Pulse Resp B/P (MAP) Pulse Ox O2 Delivery O2 Flow Rate FiO2 12/01/19 08:00 99.5 84 25 132/83 (99) 97 12/01/19 08:00 30 12/01/19 07:30 94 34 150/79 (102) 97 12/01/19 07:29 85 16 30 12/01/19 06:30 85 15 12/01/19 06:30 72 35 162/82 (108) 99 12/01/19 06:00 26 Mechanical Ventilator 30 12/01/19 06:00 74 64 148/79 (102) 99 12/01/19 05:30 70 16 152/90 (110) 99 12/01/19 05:00 75 40 145/93 (110) 99 12/01/19 05:00 24 Mechanical Ventilator 30 12/01/19 04:33 72 16 30 12/01/19 04:30 75 45 152/75 (100) 98 12/01/19 04:00 98.8 82 22 147/77 (100) 98 12/01/19 04:00 90 12/01/19 04:00 30 12/01/19 04:00 26 Mechanical Ventilator 30 12/01/19 04:00 Mechanical Ventilator Mechanical Ventilator Mechanical Ventilator 12/01/19 03:30 89 32 150/93 (112) 98 12/01/19 03:20 89 18 30 12/01/19 03:17 26 Mechanical Ventilator 30 12/01/19 03:00 100 20 148/80 (102) 97 12/01/19 03:00 24 Mechanical Ventilator 30 12/01/19 02:30 89 23 150/85 (106) 99 12/01/19 02:00 70 18 146/90 (108) 99 12/01/19 02:00 26 Mechanical Ventilator 30 12/01/19 02:00 73 16 156/80 (105) 100 12/01/19 01:30 69 16 152/91 (111) 100 12/01/19 01:03 62 16 30 12/01/19 01:00 73 16 156/80 (105) 100 12/01/19 01:00 24 Mechanical Ventilator 30 12/01/19 00:30 71 16 151/76 (101) 99 12/01/19 00:00 98.6 73 16 144/85 (104) 100 12/01/19 00:00 73 16 144/85 (104) 100 12/01/19 00:00 22 Mechanical Ventilator 30 12/01/19 00:00 71 12/01/19 00:00 30 12/01/19 00:00 Mechanical Ventilator Mechanical Ventilator Mechanical Ventilator 12/01/19 00:00 73 16 144/85 (104) 100 11/30/19 23:30 98.6 74 17 139/84 (102) 100 11/30/19 23:11 71 16 30 11/30/19 23:00 22 Mechanical Ventilator 30 11/30/19 23:00 79 15 129/75 (93) 99 11/30/19 22:30 86 16 133/73 (93) 99 11/30/19 22:00 92 18 131/77 (95) 99 11/30/19 22:00 20 Mechanical Ventilator 30 11/30/19 21:30 83 25 114/67 (83) 99 11/30/19 21:00 98 20 130/74 (92) 98 11/30/19 21:00 24 Mechanical Ventilator 30 11/30/19 20:58 96 16 30 11/30/19 20:34 94 145/87 11/30/19 20:30 110 20 145/87 (106) 93 11/30/19 20:00 30 11/30/19 20:00 98.6 92 41 123/70 (87) 98 11/30/19 20:00 Mechanical Ventilator Mechanical Ventilator Mechanical Ventilator 11/30/19 20:00 85 11/30/19 20:00 24 Mechanical Ventilator 30 11/30/19 19:30 97 17 131/69 (89) 98 11/30/19 19:14 102 16 30 11/30/19 19:00 104 17 128/81 (97) 98 11/30/19 19:00 22 Mechanical Ventilator 30 11/30/19 18:30 108 19 145/76 (99) 98 11/30/19 18:07 16 Mechanical Ventilator 30 11/30/19 18:06 18 Mechanical Ventilator 30 11/30/19 18:00 104 17 132/71 (91) 98 11/30/19 18:00 20 Mechanical Ventilator 30 11/30/19 17:30 103 26 132/76 (94) 99 11/30/19 17:00 91 20 174/113 (133) 98 11/30/19 17:00 17 Mechanical Ventilator 30 11/30/19 16:44 88 16 30 11/30/19 16:30 83 16 153/90 (111) 100 11/30/19 16:00 96 11/30/19 16:00 30 11/30/19 16:00 Mechanical Ventilator Mechanical Ventilator Mechanical Ventilator 11/30/19 16:00 18 Mechanical Ventilator 30 11/30/19 16:00 99.1 86 18 139/82 (101) 99 11/30/19 15:30 87 14 142/81 (101) 99 11/30/19 15:00 16 Mechanical Ventilator 30 11/30/19 15:00 87 17 133/87 (102) 99 11/30/19 14:46 84 16 30 11/30/19 14:30 83 16 140/75 (96) 99 11/30/19 14:00 86 16 143/73 (96) 99 11/30/19 14:00 16 Mechanical Ventilator 30 11/30/19 13:30 90 16 139/73 (95) 98 11/30/19 13:00 102 17 170/86 (114) 98 11/30/19 13:00 18 Mechanical Ventilator 30 11/30/19 12:43 95 16 30 11/30/19 12:39 144/73 11/30/19 12:30 90 17 144/73 (96) 99 11/30/19 12:00 30 11/30/19 12:00 16 Mechanical Ventilator 30 11/30/19 12:00 Mechanical Ventilator Mechanical Ventilator Mechanical Ventilator 11/30/19 12:00 99.8 88 16 151/95 (113) 99 11/30/19 12:00 88 11/30/19 11:30 86 22 184/98 (126) 98 11/30/19 11:30 85 16 100 11/30/19 11:18 77 18 100 11/30/19 11:13 167/103 11/30/19 11:00 18 Mechanical Ventilator 30 11/30/19 11:00 82 18 167/103 (124) 99 11/30/19 10:54 73 16 30 11/30/19 10:30 78 15 155/88 (110) 100 11/30/19 10:00 18 Mechanical Ventilator 30 11/30/19 10:00 85 16 168/83 (111) 100 11/30/19 09:46 16 Mechanical Ventilator 30 11/30/19 09:45 16 Mechanical Ventilator 30 11/30/19 09:30 73 16 30 11/30/19 09:30 87 19 168/94 (118) 99 11/30/19 09:00 18 Mechanical Ventilator 30 11/30/19 09:00 79 131/84 11/30/19 09:00 79 131/84 11/30/19 09:00 73 17 131/84 (100) 99 Status: awake Condition: critical HEENT: atraumatic, normocephalic Lungs: rales, rhonchi Heart: HR/BP stable Abdomen: soft, non-tender Extremities: no C/C/E Critical Care - Subjective ROS Limited/Unobtainable: Yes Condition: critical EKG Rhythm: Sinus Rhythm FI02: 30 Vent Support Breath Rate: 16 Vent Support Mode: AC Vent Tidal Volume: 550 Sputum Amount: Small PEEP: 0.0 PIP: 33 Tube Feeding Amount: 0 I&O: Intake and Output 11/30/19 12/01/19 19:00 07:00 Intake Total 700.5 ml 685 ml Output Total 944 ml 750 ml Balance -243.5 ml -65 ml IV Total 700.5 ml 685 ml Output Urine Total 944 ml 750 ml CXR: small right effusion ET-Tube: 7.5 ET Position: 25 Labs: Laboratory Tests Test 11/30/19 18:10 12/01/19 04:00 Random Amikacin Level 11.2 MG/L White Blood Count 14.8 K/UL (4.8-10.8) H Red Blood Count 2.65 M/UL (4.70-6.10) L Hemoglobin 8.1 G/DL (14.2-18.0) L Hematocrit 24.1 % (42.0-52.0) L Mean Corpuscular Volume 91 FL (80-99) Mean Corpuscular Hemoglobin 30.5 PG (27.0-31.0) Mean Corpuscular Hemoglobin Concent 33.5 G/DL (32.0-36.0) Red Cell Distribution Width 16.2 % (11.6-14.8) H Platelet Count 234 K/UL (150-450) Mean Platelet Volume 4.6 FL (6.5-10.1) L Neutrophils (%) (Auto) 78.8 % (45.0-75.0) H Lymphocytes (%) (Auto) 10.5 % (20.0-45.0) L Monocytes (%) (Auto) 7.7 % (1.0-10.0) Eosinophils (%) (Auto) 2.2 % (0.0-3.0) Basophils (%) (Auto) 0.8 % (0.0-2.0) Sodium Level 140 MMOL/L (136-145) Potassium Level 4.5 MMOL/L (3.5-5.1) Chloride Level 107 MMOL/L (98-107) Carbon Dioxide Level 21 MMOL/L (21-32) Anion Gap 12 mmol/L (5-15) Blood Urea Nitrogen 68 mg/dL (7-18) H Creatinine 5.2 MG/DL (0.55-1.30) H Estimat Glomerular Filtration Rate 12.8 mL/min (>60) Glucose Level 72 MG/DL (74-106) L Uric Acid 8.4 MG/DL (2.6-7.2) H Calcium Level 8.6 MG/DL (8.5-10.1) Phosphorus Level 4.9 MG/DL (2.5-4.9) Magnesium Level 1.9 MG/DL (1.8-2.4) Total Bilirubin 0.2 MG/DL (0.2-1.0) Direct Bilirubin < 0.1 MG/DL (0.0-0.3) Aspartate Amino Transf (AST/SGOT) 21 U/L (15-37) Alanine Aminotransferase (ALT/SGPT) 8 U/L (12-78) L Alkaline Phosphatase 46 U/L (46-116) Total Protein 6.0 G/DL (6.4-8.2) L Albumin 2.2 G/DL (3.4-5.0) L Susannah Hightower MD Dec 01, 2019 08:34
--- NOTE | 2019-12-01 08:45 | NUR ---
NURSE NOTES: Dr. Hightower updated on patient respiratory status and will attempt to wean this morning. informed of glucose level of 72 this morning, patient remans NPO flowing procedure. ordered to maintain patient NPO and start patient on D51/2NS at 50ml/hr. no other orders given.
[2019-12-01] MEDS: D5 1/2NS 1,000 ML IV SCH (09:17)
[2019-12-01] MEDS: Meropenem 500 MG in NS 55 ML IVPB SCH ×2 (09:17→20:30)
[2019-12-01] MEDS: Sucralfate 1gm tab NG SCH ×4 (09:17→20:29)
[2019-12-01] MEDS: Metoprolol Tartrate 50mg tab NG SCH ×2 (09:18→20:28)
[2019-12-01] MEDS: Docusate 100mg/10ml Liq NG SCH ×3 (09:18→17:13)
--- NOTE | 2019-12-01 09:20 | NUR ---
NURSE NOTES: Dr. Galdamez assessed patient at the bedside informed of order to maintain patient NPO, made aware of order by Dr. Hightower to start on D51/2NS at 50ml/hr. no verbal orders given at this time.
--- NOTE | 2019-12-01 09:29 | NUR ---
RESPIRATORY NOTES: Patient failed weaning within 5 minutes. When placed on CPAP PS +8 PEEP +0 FIO2 30% Mr. Bullock's oxygen saturations dropped from 97% o 83%. Placed back onto ACVC settings.
--- NOTE | 2019-12-01 10:25 | NUR ---
NURSE NOTES: Dr. Ellison updated of patient renal parameters and urine output, creatinine of 5.2 with BUN of 68. urine output remains above 30ml/hr with clear pale straw urine. also informed Dr. Hightower placed an order for D5 1/2NS at 50ml/hr for glucose level of 72 this morning. no verbal orders given at this time.
--- NOTE | 2019-12-01 11:40 | Nephrology Progress Note ---
Assessment/Plan Problem List: (1) Acute on chronic renal insufficiency Assessment: Serum creatinine leveling off around 5 (2) Acute hypercapnic respiratory failure (3) Anemia in chronic kidney disease (CKD) (4) BPH (benign prostatic hyperplasia) Assessment Acute renal failure Possible underlying chronic kidney failure Hyperkalemia Anemia other conditions: (1) Acute hypercapnic respiratory failure (2) Paroxysmal A-fib (3) Anemia, chronic renal failure (4) History of hypertension (5) Alzheimer's dementia (6) Chronic hepatitis (7) BPH (benign prostatic hyperplasia) Plan Patient n.p.o. Clonidine patch for high blood pressure while n.p.o. On Protonix drip, patient had GI bleed and was transfused 2 units of packed RBCs Will stop aspirin We will change blood pressure medication to IV Carafate through NG tube Per GI Slow hydration Nitrate Trial of Zaroxolyn as chest x-ray indicates worsening CHF as needed Monitor intake and output Monitor renal parameters Avoid nephrotoxic's Kidney ultrasound results noted indicative of chronicity 2D echocardiogram result noted ejection fraction 55% Anemia work-up noted Per orders Discussed with Dr. Zaidi Subjective ROS Limited/Unobtainable: Yes Objective Objective Last 24 Hour Vital Signs Date Time Temp Pulse Resp B/P (MAP) Pulse Ox O2 Delivery O2 Flow Rate FiO2 12/01/19 11:25 72 16 30 12/01/19 11:00 63 24 123/65 (84) 96 12/01/19 10:30 74 40 131/76 (94) 95 12/01/19 10:00 92 39 194/161 (172) 97 12/01/19 09:46 83 12/01/19 09:30 92 38 162/93 (116) 98 12/01/19 09:29 88 16 30 12/01/19 09:18 71 156/80 12/01/19 09:17 81 156/80 12/01/19 09:00 73 33 156/80 (105) 98 12/01/19 08:30 79 36 146/87 (106) 96 12/01/19 08:00 99.5 84 25 132/83 (99) 97 12/01/19 08:00 Mechanical Ventilator Mechanical Ventilator Mechanical Ventilator Mechanical Ventilator 12/01/19 08:00 96 12/01/19 08:00 30 12/01/19 07:30 94 34 150/79 (102) 97 12/01/19 07:29 85 16 30 12/01/19 06:30 85 15 12/01/19 06:30 72 35 162/82 (108) 99 12/01/19 06:00 26 Mechanical Ventilator 30 12/01/19 06:00 74 64 148/79 (102) 99 12/01/19 05:30 70 16 152/90 (110) 99 12/01/19 05:00 75 40 145/93 (110) 99 12/01/19 05:00 24 Mechanical Ventilator 30 12/01/19 04:33 72 16 30 12/01/19 04:30 75 45 152/75 (100) 98 12/01/19 04:00 98.8 82 22 147/77 (100) 98 12/01/19 04:00 90 12/01/19 04:00 30 12/01/19 04:00 26 Mechanical Ventilator 30 12/01/19 04:00 Mechanical Ventilator Mechanical Ventilator Mechanical Ventilator 12/01/19 03:30 89 32 150/93 (112) 98 12/01/19 03:20 89 18 30 12/01/19 03:17 26 Mechanical Ventilator 30 12/01/19 03:00 100 20 148/80 (102) 97 12/01/19 03:00 24 Mechanical Ventilator 30 12/01/19 02:30 89 23 150/85 (106) 99 12/01/19 02:00 70 18 146/90 (108) 99 12/01/19 02:00 26 Mechanical Ventilator 30 12/01/19 02:00 73 16 156/80 (105) 100 12/01/19 01:30 69 16 152/91 (111) 100 12/01/19 01:03 62 16 30 12/01/19 01:00 73 16 156/80 (105) 100 12/01/19 01:00 24 Mechanical Ventilator 30 12/01/19 00:30 71 16 151/76 (101) 99 12/01/19 00:00 98.6 73 16 144/85 (104) 100 12/01/19 00:00 73 16 144/85 (104) 100 12/01/19 00:00 22 Mechanical Ventilator 30 12/01/19 00:00 71 12/01/19 00:00 30 12/01/19 00:00 Mechanical Ventilator Mechanical Ventilator Mechanical Ventilator 12/01/19 00:00 73 16 144/85 (104) 100 11/30/19 23:30 98.6 74 17 139/84 (102) 100 11/30/19 23:11 71 16 30 11/30/19 23:00 22 Mechanical Ventilator 30 11/30/19 23:00 79 15 129/75 (93) 99 11/30/19 22:30 86 16 133/73 (93) 99 11/30/19 22:00 92 18 131/77 (95) 99 11/30/19 22:00 20 Mechanical Ventilator 30 11/30/19 21:30 83 25 114/67 (83) 99 11/30/19 21:00 98 20 130/74 (92) 98 11/30/19 21:00 24 Mechanical Ventilator 30 11/30/19 20:58 96 16 30 11/30/19 20:34 94 145/87 11/30/19 20:30 110 20 145/87 (106) 93 11/30/19 20:00 30 11/30/19 20:00 98.6 92 41 123/70 (87) 98 11/30/19 20:00 Mechanical Ventilator Mechanical Ventilator Mechanical Ventilator 11/30/19 20:00 85 11/30/19 20:00 24 Mechanical Ventilator 30 11/30/19 19:30 97 17 131/69 (89) 98 11/30/19 19:14 102 16 30 11/30/19 19:00 104 17 128/81 (97) 98 11/30/19 19:00 22 Mechanical Ventilator 30 11/30/19 18:30 108 19 145/76 (99) 98 11/30/19 18:07 16 Mechanical Ventilator 30 11/30/19 18:06 18 Mechanical Ventilator 30 11/30/19 18:00 104 17 132/71 (91) 98 11/30/19 18:00 20 Mechanical Ventilator 30 11/30/19 17:30 103 26 132/76 (94) 99 11/30/19 17:00 91 20 174/113 (133) 98 11/30/19 17:00 17 Mechanical Ventilator 30 11/30/19 16:44 88 16 30 11/30/19 16:30 83 16 153/90 (111) 100 11/30/19 16:00 96 11/30/19 16:00 30 11/30/19 16:00 Mechanical Ventilator Mechanical Ventilator Mechanical Ventilator 11/30/19 16:00 18 Mechanical Ventilator 30 11/30/19 16:00 99.1 86 18 139/82 (101) 99 11/30/19 15:30 87 14 142/81 (101) 99 11/30/19 15:00 16 Mechanical Ventilator 30 11/30/19 15:00 87 17 133/87 (102) 99 11/30/19 14:46 84 16 30 11/30/19 14:30 83 16 140/75 (96) 99 11/30/19 14:00 86 16 143/73 (96) 99 11/30/19 14:00 16 Mechanical Ventilator 30 11/30/19 13:30 90 16 139/73 (95) 98 11/30/19 13:00 102 17 170/86 (114) 98 11/30/19 13:00 18 Mechanical Ventilator 30 11/30/19 12:43 95 16 30 11/30/19 12:39 144/73 11/30/19 12:30 90 17 144/73 (96) 99 11/30/19 12:00 30 11/30/19 12:00 16 Mechanical Ventilator 30 11/30/19 12:00 Mechanical Ventilator Mechanical Ventilator Mechanical Ventilator 11/30/19 12:00 99.8 88 16 151/95 (113) 99 11/30/19 12:00 88 Intake and Output 11/30/19 12/01/19 19:00 07:00 Intake Total 700.5 ml 685 ml Output Total 944 ml 750 ml Balance -243.5 ml -65 ml IV Total 700.5 ml 685 ml Output Urine Total 944 ml 750 ml Current Medications Medications (Trade) Dose Ordered Sig/Cyndi Route PRN Reason Start Time Stop Time Status Last Admin Dose Admin Acetaminophen (Tylenol) 650 mg Q4H PRN NG Fever 11/21/19 13:00 12/21/19 08:14 11/28/19 16:19 Amikacin Protocol (Amikacin pharmacy to dose) 1 ea DAILY PRN MISC Per rx protocol 11/29/19 15:00 12/29/19 14:59 Amlodipine Besylate (Norvasc) 2.5 mg DAILY NG 11/27/19 12:45 12/27/19 12:44 12/01/19 09:17 Chlorhexidine Gluconate (Corrie-Hex 2%) 1 applic DAILY@2000 TOPIC 11/27/19 20:00 02/25/20 19:59 11/30/19 20:21 Clonidine HCl (Catapres TTS-3) 1 patch QWEEK TDERMAL 11/30/19 13:00 02/28/20 12:59 11/30/19 12:39 Dextrose (Dextrose 50%) 25 ml Q30M PRN IV Hypoglycemia 11/21/19 08:15 02/19/20 08:14 Dextrose (Dextrose 50%) 50 ml Q30M PRN IV Hypoglycemia 11/21/19 08:15 02/19/20 08:14 Dextrose/Sodium Chloride 1,000 ml @ 50 mls/hr Q20H IV 12/01/19 08:45 12/31/19 08:44 12/01/19 09:17 Docusate Sodium (Colace) 100 mg THREE TIMES A DAY NG 11/21/19 13:00 12/21/19 12:59 12/01/19 09:18 Fentanyl Citrate 2500 mcg/Sodium Chloride 250 ml @ 0 mls/hr Q24H IV 11/29/19 16:00 12/06/19 15:59 12/01/19 03:17 Hydralazine HCl (Apresoline) 10 mg Q4H PRN IV BP over 160 sys 11/29/19 13:30 02/27/20 13:29 Meropenem 500 mg/ Sodium Chloride 55 ml @ 110 mls/hr Q12HR IVPB 11/25/19 14:00 12/05/19 23:59 12/01/19 09:17 Metoclopramide HCl (Reglan) 5 mg Q8H IVP 11/30/19 18:00 12/30/19 17:59 12/01/19 09:18 Metoprolol Tartrate (Lopressor) 50 mg Q12HR NG 11/28/19 21:00 02/19/20 20:59 12/01/19 09:18 Nitroglycerin (Ntg) 1 patch Q24H TDERMAL 11/22/19 11:00 12/22/19 10:59 11/30/19 11:13 Ondansetron HCl (Zofran) 4 mg Q6H PRN IVP Nausea & Vomiting 11/21/19 08:15 12/21/19 08:14 Pantoprazole 80 mg/Sodium Chloride 250 ml @ 25 mls/hr Q10H IV 11/29/19 11:30 12/29/19 11:29 12/01/19 03:15 Polyethylene Glycol (Miralax) 17 gm DAILYPRN PRN NG Constipation 11/21/19 13:00 12/21/19 08:14 Sucralfate (Carafate) 1 gm FOUR TIMES A DAY NG 11/29/19 13:30 02/27/20 13:29 12/01/19 09:17 Laboratory Tests 11/30/19 18:10: Random Amikacin Level 11.2 12/01/19 04:00: White Blood Count 14.8H, Red Blood Count 2.65L, Hemoglobin 8.1L, Hematocrit 24.1L, Mean Corpuscular Volume 91, Mean Corpuscular Hemoglobin 30.5, Mean Corpuscular Hemoglobin Concent 33.5, Red Cell Distribution Width 16.2H, Platelet Count 234, Mean Platelet Volume 4.6L, Neutrophils (%) (Auto) 78.8H, Lymphocytes (%) (Auto) 10.5L, Monocytes (%) (Auto) 7.7, Eosinophils (%) (Auto) 2.2, Basophils (%) (Auto) 0.8, Sodium Level 140, Potassium Level 4.5, Chloride Level 107, Carbon Dioxide Level 21, Anion Gap 12, Blood Urea Nitrogen 68H, Creatinine 5.2H, Estimat Glomerular Filtration Rate 12.8, Glucose Level 72L, Uric Acid 8.4H, Calcium Level 8.6, Phosphorus Level 4.9, Magnesium Level 1.9, Total Bilirubin 0.2, Direct Bilirubin < 0.1, Aspartate Amino Transf (AST/SGOT) 21, Alanine Aminotransferase (ALT/SGPT) 8L, Alkaline Phosphatase 46, Total Protein 6.0L, Albumin 2.2L Height (Feet): 5 Height (Inches): 10.00 Weight (Pounds): 211 General Appearance: no apparent distress EENT: other Cardiovascular: normal rate Respiratory/Chest: decreased breath sounds - Remains intubated and vented Abdomen: distended Objective No change Reynold Ellison MD Dec 01, 2019 11:40
[2019-12-01] MEDS: Nitroglycerin Patch 0.4mg TDERMAL SCH (12:21)
--- NOTE | 2019-12-01 13:10 | NUR ---
NURSE NOTES: Suctioned with oral care provided at this time, blood pressure increased after patient was suctioned and remained coughing for approximately 30seconds. clear thick secretions noted trough Et-tube. patient remains on D51/2NS at 50ml for NPO. remains on restraint for attempting to reach ET-tube hands are swollen with pitting at 2+ with skin intact, pulses are present distally.
--- NOTE | 2019-12-01 15:12 | Infectious Diseases Prog Note ---
Assessment/Plan Assessment/Plan ASSESSMENT: This is an 83-year-old male. Afebrile Leukocytosis ( 2nd to GI bleed) improving Doubt Pneum (at this time) - Respiratory failure: m/l 2/2 CHF, elevated BNP) - Sp Cx PSA Probable UTI - UCX : PSA and ESBL E Coli GPC Bacteremia - BCx 11/21/19 Staph warneri 2/2 sets - BCx 11/22/19 - Neg - 2D Echo : No Veg 11/29 extubated SP EGD Congestive heart failure. Atrial fibrillation. Altered mental status. Urinary tract infection. Renal failure. Hypertension. Alzheimer's dementia. BPH P: Cont pt on IV Merrem # 8/10 , add Amikacin # 3/ ( Urine coverage ) -11/29 SP IV Vancomycin #9 -11/23 Sp Rocephin # 4 Monitor CBC, CMP Monitor CXR Rsp support GI Follow Subjective Allergies: Coded Allergies: LISINOPRIL (Verified Allergy, Unknown, 11/21/19) SIMVASTATIN (Verified Allergy, Unknown, 11/21/19) TERAZOSIN (Verified Allergy, Unknown, 11/21/19) Subjective afebrile wbc improving Objective Vital Signs Last 24 Hour Vital Signs Date Time Temp Pulse Resp B/P (MAP) Pulse Ox O2 Delivery O2 Flow Rate FiO2 12/01/19 14:00 63 18 169/87 (114) 97 12/01/19 13:30 83 18 159/106 (123) 95 12/01/19 13:00 79 18 162/85 (110) 95 12/01/19 12:30 76 18 156/92 (113) 96 12/01/19 12:21 16 Mechanical Ventilator 30 12/01/19 12:21 141/84 12/01/19 12:00 66 12/01/19 12:00 Mechanical Ventilator Mechanical Ventilator Mechanical Ventilator Mechanical Ventilator 12/01/19 12:00 30 12/01/19 12:00 98.3 66 18 141/84 (103) 96 12/01/19 11:30 70 27 132/82 (99) 95 12/01/19 11:25 72 16 30 12/01/19 11:00 63 24 123/65 (84) 96 12/01/19 10:30 74 40 131/76 (94) 95 12/01/19 10:00 92 39 194/161 (172) 97 12/01/19 09:46 83 12/01/19 09:30 92 38 162/93 (116) 98 12/01/19 09:29 88 16 30 12/01/19 09:18 71 156/80 12/01/19 09:17 81 156/80 12/01/19 09:00 73 33 156/80 (105) 98 12/01/19 08:30 79 36 146/87 (106) 96 12/01/19 08:00 99.5 84 25 132/83 (99) 97 12/01/19 08:00 Mechanical Ventilator Mechanical Ventilator Mechanical Ventilator Mechanical Ventilator 12/01/19 08:00 96 12/01/19 08:00 30 12/01/19 07:30 94 34 150/79 (102) 97 12/01/19 07:29 85 16 30 12/01/19 06:30 85 15 12/01/19 06:30 72 35 162/82 (108) 99 12/01/19 06:00 26 Mechanical Ventilator 30 12/01/19 06:00 74 64 148/79 (102) 99 12/01/19 05:30 70 16 152/90 (110) 99 12/01/19 05:00 75 40 145/93 (110) 99 12/01/19 05:00 24 Mechanical Ventilator 30 12/01/19 04:33 72 16 30 12/01/19 04:30 75 45 152/75 (100) 98 12/01/19 04:00 98.8 82 22 147/77 (100) 98 12/01/19 04:00 90 12/01/19 04:00 30 12/01/19 04:00 26 Mechanical Ventilator 30 12/01/19 04:00 Mechanical Ventilator Mechanical Ventilator Mechanical Ventilator 12/01/19 03:30 89 32 150/93 (112) 98 12/01/19 03:20 89 18 30 12/01/19 03:17 26 Mechanical Ventilator 30 12/01/19 03:00 100 20 148/80 (102) 97 12/01/19 03:00 24 Mechanical Ventilator 30 12/01/19 02:30 89 23 150/85 (106) 99 12/01/19 02:00 70 18 146/90 (108) 99 12/01/19 02:00 26 Mechanical Ventilator 30 12/01/19 02:00 73 16 156/80 (105) 100 12/01/19 01:30 69 16 152/91 (111) 100 12/01/19 01:03 62 16 30 12/01/19 01:00 73 16 156/80 (105) 100 12/01/19 01:00 24 Mechanical Ventilator 30 12/01/19 00:30 71 16 151/76 (101) 99 12/01/19 00:00 98.6 73 16 144/85 (104) 100 12/01/19 00:00 73 16 144/85 (104) 100 12/01/19 00:00 22 Mechanical Ventilator 30 12/01/19 00:00 71 12/01/19 00:00 30 12/01/19 00:00 Mechanical Ventilator Mechanical Ventilator Mechanical Ventilator 12/01/19 00:00 73 16 144/85 (104) 100 11/30/19 23:30 98.6 74 17 139/84 (102) 100 11/30/19 23:11 71 16 30 11/30/19 23:00 22 Mechanical Ventilator 30 11/30/19 23:00 79 15 129/75 (93) 99 11/30/19 22:30 86 16 133/73 (93) 99 11/30/19 22:00 92 18 131/77 (95) 99 11/30/19 22:00 20 Mechanical Ventilator 30 11/30/19 21:30 83 25 114/67 (83) 99 11/30/19 21:00 98 20 130/74 (92) 98 11/30/19 21:00 24 Mechanical Ventilator 30 11/30/19 20:58 96 16 30 11/30/19 20:34 94 145/87 11/30/19 20:30 110 20 145/87 (106) 93 11/30/19 20:00 30 11/30/19 20:00 98.6 92 41 123/70 (87) 98 11/30/19 20:00 Mechanical Ventilator Mechanical Ventilator Mechanical Ventilator 11/30/19 20:00 85 11/30/19 20:00 24 Mechanical Ventilator 30 11/30/19 19:30 97 17 131/69 (89) 98 11/30/19 19:14 102 16 30 11/30/19 19:00 104 17 128/81 (97) 98 11/30/19 19:00 22 Mechanical Ventilator 30 11/30/19 18:30 108 19 145/76 (99) 98 11/30/19 18:07 16 Mechanical Ventilator 30 11/30/19 18:06 18 Mechanical Ventilator 30 11/30/19 18:00 104 17 132/71 (91) 98 11/30/19 18:00 20 Mechanical Ventilator 30 11/30/19 17:30 103 26 132/76 (94) 99 11/30/19 17:00 91 20 174/113 (133) 98 11/30/19 17:00 17 Mechanical Ventilator 30 11/30/19 16:44 88 16 30 11/30/19 16:30 83 16 153/90 (111) 100 11/30/19 16:00 96 11/30/19 16:00 30 11/30/19 16:00 Mechanical Ventilator Mechanical Ventilator Mechanical Ventilator 11/30/19 16:00 18 Mechanical Ventilator 30 11/30/19 16:00 99.1 86 18 139/82 (101) 99 11/30/19 15:30 87 14 142/81 (101) 99 11/30/19 15:00 16 Mechanical Ventilator 30 11/30/19 15:00 87 17 133/87 (102) 99 Height (Feet): 5 Height (Inches): 10.00 Weight (Pounds): 211 Objective HEENT: anicteric Respiratory/Chest: no respiratory distress Cardiovascular: regularly irregular Abdomen: soft, non tender Laboratory Tests Test 11/30/19 18:10 12/01/19 04:00 Random Amikacin Level 11.2 MG/L White Blood Count 14.8 K/UL (4.8-10.8) H Red Blood Count 2.65 M/UL (4.70-6.10) L Hemoglobin 8.1 G/DL (14.2-18.0) L Hematocrit 24.1 % (42.0-52.0) L Mean Corpuscular Volume 91 FL (80-99) Mean Corpuscular Hemoglobin 30.5 PG (27.0-31.0) Mean Corpuscular Hemoglobin Concent 33.5 G/DL (32.0-36.0) Red Cell Distribution Width 16.2 % (11.6-14.8) H Platelet Count 234 K/UL (150-450) Mean Platelet Volume 4.6 FL (6.5-10.1) L Neutrophils (%) (Auto) 78.8 % (45.0-75.0) H Lymphocytes (%) (Auto) 10.5 % (20.0-45.0) L Monocytes (%) (Auto) 7.7 % (1.0-10.0) Eosinophils (%) (Auto) 2.2 % (0.0-3.0) Basophils (%) (Auto) 0.8 % (0.0-2.0) Sodium Level 140 MMOL/L (136-145) Potassium Level 4.5 MMOL/L (3.5-5.1) Chloride Level 107 MMOL/L (98-107) Carbon Dioxide Level 21 MMOL/L (21-32) Anion Gap 12 mmol/L (5-15) Blood Urea Nitrogen 68 mg/dL (7-18) H Creatinine 5.2 MG/DL (0.55-1.30) H Estimat Glomerular Filtration Rate 12.8 mL/min (>60) Glucose Level 72 MG/DL (74-106) L Uric Acid 8.4 MG/DL (2.6-7.2) H Calcium Level 8.6 MG/DL (8.5-10.1) Phosphorus Level 4.9 MG/DL (2.5-4.9) Magnesium Level 1.9 MG/DL (1.8-2.4) Total Bilirubin 0.2 MG/DL (0.2-1.0) Direct Bilirubin < 0.1 MG/DL (0.0-0.3) Aspartate Amino Transf (AST/SGOT) 21 U/L (15-37) Alanine Aminotransferase (ALT/SGPT) 8 U/L (12-78) L Alkaline Phosphatase 46 U/L (46-116) Total Protein 6.0 G/DL (6.4-8.2) L Albumin 2.2 G/DL (3.4-5.0) L Current Medications Medications (Trade) Dose Ordered Sig/Cyndi Route PRN Reason Start Time Stop Time Status Last Admin Dose Admin Acetaminophen (Tylenol) 650 mg Q4H PRN NG Fever 11/21/19 13:00 12/21/19 08:14 11/28/19 16:19 Amikacin Protocol (Amikacin pharmacy to dose) 1 ea DAILY PRN MISC Per rx protocol 11/29/19 15:00 12/29/19 14:59 Amlodipine Besylate (Norvasc) 2.5 mg DAILY NG 11/27/19 12:45 12/27/19 12:44 12/01/19 09:17 Chlorhexidine Gluconate (Corrie-Hex 2%) 1 applic DAILY@2000 TOPIC 11/27/19 20:00 02/25/20 19:59 11/30/19 20:21 Clonidine HCl (Catapres TTS-3) 1 patch QWEEK TDERMAL 11/30/19 13:00 02/28/20 12:59 11/30/19 12:39 Dextrose (Dextrose 50%) 25 ml Q30M PRN IV Hypoglycemia 11/21/19 08:15 02/19/20 08:14 Dextrose (Dextrose 50%) 50 ml Q30M PRN IV Hypoglycemia 11/21/19 08:15 02/19/20 08:14 Dextrose/Sodium Chloride 1,000 ml @ 50 mls/hr Q20H IV 12/01/19 08:45 12/31/19 08:44 12/01/19 09:17 Docusate Sodium (Colace) 100 mg THREE TIMES A DAY NG 11/21/19 13:00 12/21/19 12:59 12/01/19 13:53 Fentanyl Citrate 2500 mcg/Sodium Chloride 250 ml @ 0 mls/hr Q24H IV 11/29/19 16:00 12/06/19 15:59 12/01/19 12:21 Hydralazine HCl (Apresoline) 10 mg Q4H PRN IV BP over 160 sys 11/29/19 13:30 02/27/20 13:29 Meropenem 500 mg/ Sodium Chloride 55 ml @ 110 mls/hr Q12HR IVPB 11/25/19 14:00 12/05/19 23:59 12/01/19 09:17 Metoclopramide HCl (Reglan) 5 mg Q8H IVP 11/30/19 18:00 12/30/19 17:59 12/01/19 09:18 Metoprolol Tartrate (Lopressor) 50 mg Q12HR NG 11/28/19 21:00 02/19/20 20:59 12/01/19 09:18 Nitroglycerin (Ntg) 1 patch Q24H TDERMAL 11/22/19 11:00 4/18/20 10:59 12/01/19 12:21 Ondansetron HCl (Zofran) 4 mg Q6H PRN IVP Nausea & Vomiting 11/21/19 08:15 12/21/19 08:14 Pantoprazole 80 mg/Sodium Chloride 250 ml @ 25 mls/hr Q10H IV 11/29/19 11:30 12/29/19 11:29 12/01/19 13:53 Polyethylene Glycol (Miralax) 17 gm DAILYPRN PRN NG Constipation 11/21/19 13:00 12/21/19 08:14 Sucralfate (Carafate) 1 gm FOUR TIMES A DAY NG 11/29/19 13:30 02/27/20 13:29 12/01/19 13:53 Alla Wayne M.D. Dec 01, 2019 15:12
--- NOTE | 2019-12-01 16:00 | NUR ---
NURSE NOTES: Dr. Zaidi updated on cardiac status and blood pressure, Heart rhythm remains atrial fibrillation with rate ranging from 75-89. no verbal orders given at this time.
--- NOTE | 2019-12-01 16:28 | Internal Med Progress Note ---
Subjective Date of Service: Dec 01, 2019 Physician Name ZamarripaAbisai Attending Physician Claude Garza MD Current Medications Medications (Trade) Dose Ordered Sig/Cyndi Route PRN Reason Start Time Stop Time Status Last Admin Dose Admin Acetaminophen (Tylenol) 650 mg Q4H PRN NG Fever 11/21/19 13:00 12/21/19 08:14 11/28/19 16:19 Amikacin Protocol (Amikacin pharmacy to dose) 1 ea DAILY PRN MISC Per rx protocol 11/29/19 15:00 12/29/19 14:59 Amlodipine Besylate (Norvasc) 2.5 mg DAILY NG 11/27/19 12:45 12/27/19 12:44 12/01/19 09:17 Chlorhexidine Gluconate (Corrie-Hex 2%) 1 applic DAILY@2000 TOPIC 11/27/19 20:00 02/25/20 19:59 11/30/19 20:21 Clonidine HCl (Catapres TTS-3) 1 patch QWEEK TDERMAL 11/30/19 13:00 02/28/20 12:59 11/30/19 12:39 Dextrose (Dextrose 50%) 25 ml Q30M PRN IV Hypoglycemia 11/21/19 08:15 02/19/20 08:14 Dextrose (Dextrose 50%) 50 ml Q30M PRN IV Hypoglycemia 11/21/19 08:15 02/19/20 08:14 Dextrose/Sodium Chloride 1,000 ml @ 50 mls/hr Q20H IV 12/01/19 08:45 12/31/19 08:44 12/01/19 09:17 Docusate Sodium (Colace) 100 mg THREE TIMES A DAY NG 11/21/19 13:00 12/21/19 12:59 12/01/19 13:53 Fentanyl Citrate 2500 mcg/Sodium Chloride 250 ml @ 0 mls/hr Q24H IV 11/29/19 16:00 12/06/19 15:59 12/01/19 12:21 Hydralazine HCl (Apresoline) 10 mg Q4H PRN IV BP over 160 sys 11/29/19 13:30 02/27/20 13:29 Meropenem 500 mg/ Sodium Chloride 55 ml @ 110 mls/hr Q12HR IVPB 11/25/19 14:00 12/05/19 23:59 12/01/19 09:17 Metoclopramide HCl (Reglan) 5 mg Q8H IVP 11/30/19 18:00 12/30/19 17:59 12/01/19 09:18 Metoprolol Tartrate (Lopressor) 50 mg Q12HR NG 11/28/19 21:00 02/19/20 20:59 12/01/19 09:18 Nitroglycerin (Ntg) 1 patch Q24H TDERMAL 11/22/19 11:00 12/22/19 10:59 12/01/19 12:21 Ondansetron HCl (Zofran) 4 mg Q6H PRN IVP Nausea & Vomiting 11/21/19 08:15 12/21/19 08:14 Pantoprazole 80 mg/Sodium Chloride 250 ml @ 25 mls/hr Q10H IV 11/29/19 11:30 12/29/19 11:29 12/01/19 13:53 Polyethylene Glycol (Miralax) 17 gm DAILYPRN PRN NG Constipation 11/21/19 13:00 12/21/19 08:14 Sucralfate (Carafate) 1 gm FOUR TIMES A DAY NG 11/29/19 13:30 02/27/20 13:29 12/01/19 13:53 Allergies: Coded Allergies: LISINOPRIL (Verified Allergy, Unknown, 11/21/19) SIMVASTATIN (Verified Allergy, Unknown, 11/21/19) TERAZOSIN (Verified Allergy, Unknown, 11/21/19) ROS Limited/Unobtainable: Yes Subjective 83 YO M admitted with respiratory failure. Now pneumonia, UTI and sepsis. Cover for Int Med-DR Garza. Intubated and sedated. ICU Objective Last Vital Signs Date Time Temp Pulse Resp B/P (MAP) Pulse Ox O2 Delivery O2 Flow Rate FiO2 12/01/19 15:26 82 16 30 12/01/19 15:00 156/85 (108) 95 12/01/19 12:21 Mechanical Ventilator 12/01/19 12:00 98.3 Laboratory Tests Test 11/30/19 18:10 12/01/19 04:00 Random Amikacin Level 11.2 MG/L White Blood Count 14.8 K/UL (4.8-10.8) H Red Blood Count 2.65 M/UL (4.70-6.10) L Hemoglobin 8.1 G/DL (14.2-18.0) L Hematocrit 24.1 % (42.0-52.0) L Mean Corpuscular Volume 91 FL (80-99) Mean Corpuscular Hemoglobin 30.5 PG (27.0-31.0) Mean Corpuscular Hemoglobin Concent 33.5 G/DL (32.0-36.0) Red Cell Distribution Width 16.2 % (11.6-14.8) H Platelet Count 234 K/UL (150-450) Mean Platelet Volume 4.6 FL (6.5-10.1) L Neutrophils (%) (Auto) 78.8 % (45.0-75.0) H Lymphocytes (%) (Auto) 10.5 % (20.0-45.0) L Monocytes (%) (Auto) 7.7 % (1.0-10.0) Eosinophils (%) (Auto) 2.2 % (0.0-3.0) Basophils (%) (Auto) 0.8 % (0.0-2.0) Sodium Level 140 MMOL/L (136-145) Potassium Level 4.5 MMOL/L (3.5-5.1) Chloride Level 107 MMOL/L (98-107) Carbon Dioxide Level 21 MMOL/L (21-32) Anion Gap 12 mmol/L (5-15) Blood Urea Nitrogen 68 mg/dL (7-18) H Creatinine 5.2 MG/DL (0.55-1.30) H Estimat Glomerular Filtration Rate 12.8 mL/min (>60) Glucose Level 72 MG/DL (74-106) L Uric Acid 8.4 MG/DL (2.6-7.2) H Calcium Level 8.6 MG/DL (8.5-10.1) Phosphorus Level 4.9 MG/DL (2.5-4.9) Magnesium Level 1.9 MG/DL (1.8-2.4) Total Bilirubin 0.2 MG/DL (0.2-1.0) Direct Bilirubin < 0.1 MG/DL (0.0-0.3) Aspartate Amino Transf (AST/SGOT) 21 U/L (15-37) Alanine Aminotransferase (ALT/SGPT) 8 U/L (12-78) L Alkaline Phosphatase 46 U/L (46-116) Total Protein 6.0 G/DL (6.4-8.2) L Albumin 2.2 G/DL (3.4-5.0) L Intake and Output 11/30/19 12/01/19 19:00 07:00 Intake Total 700.5 ml 740 ml Output Total 944 ml 750 ml Balance -243.5 ml -10 ml IV Total 700.5 ml 740 ml Output Urine Total 944 ml 750 ml Objective PHYSICAL EXAMINATION: GENERAL: The patient is well-developed, well-nourished male, who is intubated and sedated in the intensive care unit. HEENT: Eyes, pupils are equal and responsive to light and accommodation. Extraocular movements are intact. NECK: Supple without lymphadenopathy. CHEST: Mech vent; Bilateral expiratory air sounds, otherwise clear to auscultation without rales. CARDIOVASCULAR: Regular rhythm and rate. S1 and S2 normal without murmurs, rubs, or gallops. ABDOMEN: Soft, nontender, and nondistended. Positive bowel sounds. No evidence of hepatosplenomegaly. Currently, no rebound or guarding noted. EXTREMITIES: Negative for clubbing, cyanosis, or edema. RECTAL/GENITAL: Not performed. NEUROLOGIC: Cranial nerves II through XII are grossly intact without focal deficits. Motor strength is 5/5 bilaterally. Deep tendon reflexes are 2+ plantar. Assessment/Plan Assessment/Plan ASSESSMENT: This is an 83-year-old male. 1. Respiratory failure. 2. Congestive heart failure. 3. Atrial fibrillation. 4. Altered mental status. 5. Urinary tract infection. 6. Renal failure. 7. Hypertension. 8. Alzheimer's dementia. 9. Benign prostatic hypertrophy. 10. urinary tract infection-ESBL E. Coli and pseudamonas aeruginosa. 11. Sepsis-Staph Warneri 12. pneumonia=pseudamonas aeruginosa TREATMENT: 1. Congestive heart failure. A Cardiology consultation has been obtained with Dr. Vasu Zaidi. We will follow recommendations of Cardiology. The patient is currently receiving intravenous Lasix. 2. Respiratory failure. A Pulmonary consultation has been obtained with Dr. Susannah Hightower. The patient is currently intubated in the intensive care unit. We will follow recommendations of Pulmonary. ABX=meropenem and vanco per ID=Dr Hicks 3. Atrial fibrillation as above. A Cardiology consultation has been obtained with Dr. Vasu Zaidi. 4. Renal failure. A Nephrology consultation has been obtained with Dr. Ellison. We will follow recommendations of Nephrology. 5. Hypertension. The patient is currently hypotensive in the intensive care unit. 6. Alzheimer's dementia. 7. Benign prostatic hypertrophy. 8. ABX = meropenem per ID Abisai Zamarripa MD Dec 01, 2019 16:28
--- NOTE | 2019-12-01 16:39 | Cardiology Progress Note ---
Assessment/Plan Assessment/Plan 1. Permanent versus paroxysmal episodes of atrial fibrillation. 2. Tachycardia. 3. Renal insufficiency. 4. Obstructive uropathy. 5. History of hypertension. 6. Prostatic hypertrophy. 7. History of latent tuberculosis. 8. History of heart failure. 9. History of hepatitis C infection. 10. Respiratory failure with respiratory acidosis, now on vent 11. melanotic stool 12 large gastric clot cxr personally reviewed tele personally reviewed ekg reviewed bp seems not taking po/ gt meds as not clear if he absorbs any will try ond dose of norvasc to day to see torp abn likely due to renal insuf off heparin due to gi bleed s/p 3 unit f prbc bp is fine d/w rn need to be in neg fluid balance rate control with iv bb egd not successful again du to persistent due to large clot present in the ge junction Subjective Cardiovascular: Denies: chest pain, lightheadedness Respiratory: Reports: shortness of breath Gastrointestinal/Abdominal: Denies: abdominal pain Genitourinary: Denies: burning Subjective vent isolation Objective Last 24 Hour Vital Signs Date Time Temp Pulse Resp B/P (MAP) Pulse Ox O2 Delivery O2 Flow Rate FiO2 12/01/19 16:32 173/89 12/01/19 16:00 30 12/01/19 15:26 82 16 30 12/01/19 15:00 77 18 156/85 (108) 95 12/01/19 14:30 80 18 161/101 (121) 94 12/01/19 14:00 63 18 169/87 (114) 97 12/01/19 13:30 83 18 159/106 (123) 95 12/01/19 13:21 85 16 30 12/01/19 13:00 79 18 162/85 (110) 95 12/01/19 12:30 76 18 156/92 (113) 96 12/01/19 12:21 16 Mechanical Ventilator 30 12/01/19 12:21 141/84 12/01/19 12:00 66 12/01/19 12:00 Mechanical Ventilator Mechanical Ventilator Mechanical Ventilator Mechanical Ventilator 12/01/19 12:00 30 12/01/19 12:00 98.3 66 18 141/84 (103) 96 12/01/19 11:30 70 27 132/82 (99) 95 12/01/19 11:25 72 16 30 12/01/19 11:00 63 24 123/65 (84) 96 12/01/19 10:30 74 40 131/76 (94) 95 12/01/19 10:00 92 39 194/161 (172) 97 12/01/19 09:46 83 12/01/19 09:30 92 38 162/93 (116) 98 12/01/19 09:29 88 16 30 12/01/19 09:18 71 156/80 12/01/19 09:17 81 156/80 12/01/19 09:00 73 33 156/80 (105) 98 12/01/19 08:30 79 36 146/87 (106) 96 12/01/19 08:00 99.5 84 25 132/83 (99) 97 12/01/19 08:00 Mechanical Ventilator Mechanical Ventilator Mechanical Ventilator Mechanical Ventilator 12/01/19 08:00 96 12/01/19 08:00 30 12/01/19 07:30 94 34 150/79 (102) 97 12/01/19 07:29 85 16 30 12/01/19 06:30 85 15 12/01/19 06:30 72 35 162/82 (108) 99 12/01/19 06:00 26 Mechanical Ventilator 30 12/01/19 06:00 74 64 148/79 (102) 99 12/01/19 05:30 70 16 152/90 (110) 99 12/01/19 05:00 75 40 145/93 (110) 99 12/01/19 05:00 24 Mechanical Ventilator 30 12/01/19 04:33 72 16 30 12/01/19 04:30 75 45 152/75 (100) 98 12/01/19 04:00 98.8 82 22 147/77 (100) 98 12/01/19 04:00 90 12/01/19 04:00 30 12/01/19 04:00 26 Mechanical Ventilator 30 12/01/19 04:00 Mechanical Ventilator Mechanical Ventilator Mechanical Ventilator 12/01/19 03:30 89 32 150/93 (112) 98 12/01/19 03:20 89 18 30 12/01/19 03:17 26 Mechanical Ventilator 30 12/01/19 03:00 100 20 148/80 (102) 97 12/01/19 03:00 24 Mechanical Ventilator 30 12/01/19 02:30 89 23 150/85 (106) 99 12/01/19 02:00 70 18 146/90 (108) 99 12/01/19 02:00 26 Mechanical Ventilator 30 12/01/19 02:00 73 16 156/80 (105) 100 12/01/19 01:30 69 16 152/91 (111) 100 12/01/19 01:03 62 16 30 12/01/19 01:00 73 16 156/80 (105) 100 12/01/19 01:00 24 Mechanical Ventilator 30 12/01/19 00:30 71 16 151/76 (101) 99 12/01/19 00:00 98.6 73 16 144/85 (104) 100 12/01/19 00:00 73 16 144/85 (104) 100 12/01/19 00:00 22 Mechanical Ventilator 30 12/01/19 00:00 71 12/01/19 00:00 30 12/01/19 00:00 Mechanical Ventilator Mechanical Ventilator Mechanical Ventilator 12/01/19 00:00 73 16 144/85 (104) 100 11/30/19 23:30 98.6 74 17 139/84 (102) 100 11/30/19 23:11 71 16 30 11/30/19 23:00 22 Mechanical Ventilator 30 11/30/19 23:00 79 15 129/75 (93) 99 11/30/19 22:30 86 16 133/73 (93) 99 11/30/19 22:00 92 18 131/77 (95) 99 11/30/19 22:00 20 Mechanical Ventilator 30 11/30/19 21:30 83 25 114/67 (83) 99 11/30/19 21:00 98 20 130/74 (92) 98 11/30/19 21:00 24 Mechanical Ventilator 30 11/30/19 20:58 96 16 30 11/30/19 20:34 94 145/87 11/30/19 20:30 110 20 145/87 (106) 93 11/30/19 20:00 30 11/30/19 20:00 98.6 92 41 123/70 (87) 98 11/30/19 20:00 Mechanical Ventilator Mechanical Ventilator Mechanical Ventilator 11/30/19 20:00 85 11/30/19 20:00 24 Mechanical Ventilator 30 11/30/19 19:30 97 17 131/69 (89) 98 11/30/19 19:14 102 16 30 11/30/19 19:00 104 17 128/81 (97) 98 11/30/19 19:00 22 Mechanical Ventilator 30 11/30/19 18:30 108 19 145/76 (99) 98 11/30/19 18:07 16 Mechanical Ventilator 30 11/30/19 18:06 18 Mechanical Ventilator 30 11/30/19 18:00 104 17 132/71 (91) 98 11/30/19 18:00 20 Mechanical Ventilator 30 11/30/19 17:30 103 26 132/76 (94) 99 11/30/19 17:00 91 20 174/113 (133) 98 11/30/19 17:00 17 Mechanical Ventilator 30 11/30/19 16:44 88 16 30 General Appearance: no apparent distress, alert, on vent, patient on isolation Neck: supple Cardiovascular: irregularly irregular Respiratory/Chest: lungs clear - ant Abdomen: normal bowel sounds, non tender, soft Extremities: no swelling Intake and Output 11/30/19 12/01/19 19:00 07:00 Intake Total 700.5 ml 740 ml Output Total 944 ml 750 ml Balance -243.5 ml -10 ml IV Total 700.5 ml 740 ml Output Urine Total 944 ml 750 ml Laboratory Tests Test 11/30/19 18:10 12/01/19 04:00 Random Amikacin Level 11.2 MG/L White Blood Count 14.8 K/UL (4.8-10.8) H Red Blood Count 2.65 M/UL (4.70-6.10) L Hemoglobin 8.1 G/DL (14.2-18.0) L Hematocrit 24.1 % (42.0-52.0) L Mean Corpuscular Volume 91 FL (80-99) Mean Corpuscular Hemoglobin 30.5 PG (27.0-31.0) Mean Corpuscular Hemoglobin Concent 33.5 G/DL (32.0-36.0) Red Cell Distribution Width 16.2 % (11.6-14.8) H Platelet Count 234 K/UL (150-450) Mean Platelet Volume 4.6 FL (6.5-10.1) L Neutrophils (%) (Auto) 78.8 % (45.0-75.0) H Lymphocytes (%) (Auto) 10.5 % (20.0-45.0) L Monocytes (%) (Auto) 7.7 % (1.0-10.0) Eosinophils (%) (Auto) 2.2 % (0.0-3.0) Basophils (%) (Auto) 0.8 % (0.0-2.0) Sodium Level 140 MMOL/L (136-145) Potassium Level 4.5 MMOL/L (3.5-5.1) Chloride Level 107 MMOL/L (98-107) Carbon Dioxide Level 21 MMOL/L (21-32) Anion Gap 12 mmol/L (5-15) Blood Urea Nitrogen 68 mg/dL (7-18) H Creatinine 5.2 MG/DL (0.55-1.30) H Estimat Glomerular Filtration Rate 12.8 mL/min (>60) Glucose Level 72 MG/DL (74-106) L Uric Acid 8.4 MG/DL (2.6-7.2) H Calcium Level 8.6 MG/DL (8.5-10.1) Phosphorus Level 4.9 MG/DL (2.5-4.9) Magnesium Level 1.9 MG/DL (1.8-2.4) Total Bilirubin 0.2 MG/DL (0.2-1.0) Direct Bilirubin < 0.1 MG/DL (0.0-0.3) Aspartate Amino Transf (AST/SGOT) 21 U/L (15-37) Alanine Aminotransferase (ALT/SGPT) 8 U/L (12-78) L Alkaline Phosphatase 46 U/L (46-116) Total Protein 6.0 G/DL (6.4-8.2) L Albumin 2.2 G/DL (3.4-5.0) L Vasu Zaidi MD Dec 01, 2019 16:39
--- NOTE | 2019-12-01 17:48 | General Progress Note ---
Assessment/Plan Status: stable, unchanged Assessment/Plan: Assessment/Plan 1. atrial fibrillation. 2. Tachycardia. 3. Renal insufficiency. 4. Obstructive uropathy. 5. hypertension. 6. Prostatic hypertrophy. 7. History of latent tuberculosis. 8. History of heart failure. 9. History of hepatitis C infection. 10. Respiratory failure with respiratory acidosis, now on vent 11. UGIB 12. Proximal stomach ulcer and GIB, adherent clot, difficult visualization Recommendations NPO Serial CBC PPI Carafate Elevate HOB will start TF soon Subjective Allergies: Coded Allergies: LISINOPRIL (Verified Allergy, Unknown, 11/21/19) SIMVASTATIN (Verified Allergy, Unknown, 11/21/19) TERAZOSIN (Verified Allergy, Unknown, 11/21/19) Subjective Above noted d/w staff attorney patient awake, intubated, restrained Objective Last 24 Hour Vital Signs Date Time Temp Pulse Resp B/P (MAP) Pulse Ox O2 Delivery O2 Flow Rate FiO2 12/01/19 17:13 92 151/79 12/01/19 17:00 93 18 151/79 (103) 96 12/01/19 16:32 173/89 12/01/19 16:30 78 17 155/94 (114) 94 12/01/19 16:00 Mechanical Ventilator Mechanical Ventilator Mechanical Ventilator Mechanical Ventilator 12/01/19 16:00 98.6 74 18 162/95 (117) 95 12/01/19 16:00 69 12/01/19 16:00 30 12/01/19 15:30 78 17 150/91 (110) 94 12/01/19 15:26 82 16 30 12/01/19 15:00 77 18 156/85 (108) 95 12/01/19 14:30 80 18 161/101 (121) 94 12/01/19 14:00 63 18 169/87 (114) 97 12/01/19 13:30 83 18 159/106 (123) 95 12/01/19 13:21 85 16 30 12/01/19 13:00 79 18 162/85 (110) 95 12/01/19 12:30 76 18 156/92 (113) 96 12/01/19 12:21 16 Mechanical Ventilator 30 12/01/19 12:21 141/84 12/01/19 12:00 66 12/01/19 12:00 Mechanical Ventilator Mechanical Ventilator Mechanical Ventilator Mechanical Ventilator 12/01/19 12:00 30 12/01/19 12:00 98.3 66 18 141/84 (103) 96 12/01/19 11:30 70 27 132/82 (99) 95 12/01/19 11:25 72 16 30 12/01/19 11:00 63 24 123/65 (84) 96 12/01/19 10:30 74 40 131/76 (94) 95 12/01/19 10:00 92 39 194/161 (172) 97 12/01/19 09:46 83 12/01/19 09:30 92 38 162/93 (116) 98 12/01/19 09:29 88 16 30 12/01/19 09:18 71 156/80 12/01/19 09:17 81 156/80 12/01/19 09:00 73 33 156/80 (105) 98 12/01/19 08:30 79 36 146/87 (106) 96 12/01/19 08:00 99.5 84 25 132/83 (99) 97 12/01/19 08:00 Mechanical Ventilator Mechanical Ventilator Mechanical Ventilator Mechanical Ventilator 12/01/19 08:00 96 12/01/19 08:00 30 12/01/19 07:30 94 34 150/79 (102) 97 12/01/19 07:29 85 16 30 12/01/19 06:30 85 15 12/01/19 06:30 72 35 162/82 (108) 99 12/01/19 06:00 26 Mechanical Ventilator 30 12/01/19 06:00 74 64 148/79 (102) 99 12/01/19 05:30 70 16 152/90 (110) 99 12/01/19 05:00 75 40 145/93 (110) 99 12/01/19 05:00 24 Mechanical Ventilator 30 12/01/19 04:33 72 16 30 12/01/19 04:30 75 45 152/75 (100) 98 12/01/19 04:00 98.8 82 22 147/77 (100) 98 12/01/19 04:00 90 12/01/19 04:00 30 12/01/19 04:00 26 Mechanical Ventilator 30 12/01/19 04:00 Mechanical Ventilator Mechanical Ventilator Mechanical Ventilator 12/01/19 03:30 89 32 150/93 (112) 98 12/01/19 03:20 89 18 30 3/28/20 03:17 26 Mechanical Ventilator 30 12/01/19 03:00 100 20 148/80 (102) 97 12/01/19 03:00 24 Mechanical Ventilator 30 12/01/19 02:30 89 23 150/85 (106) 99 12/01/19 02:00 70 18 146/90 (108) 99 12/01/19 02:00 26 Mechanical Ventilator 30 12/01/19 02:00 73 16 156/80 (105) 100 12/01/19 01:30 69 16 152/91 (111) 100 12/01/19 01:03 62 16 30 12/01/19 01:00 73 16 156/80 (105) 100 12/01/19 01:00 24 Mechanical Ventilator 30 12/01/19 00:30 71 16 151/76 (101) 99 12/01/19 00:00 98.6 73 16 144/85 (104) 100 12/01/19 00:00 73 16 144/85 (104) 100 12/01/19 00:00 22 Mechanical Ventilator 30 12/01/19 00:00 71 12/01/19 00:00 30 12/01/19 00:00 Mechanical Ventilator Mechanical Ventilator Mechanical Ventilator 12/01/19 00:00 73 16 144/85 (104) 100 11/30/19 23:30 98.6 74 17 139/84 (102) 100 11/30/19 23:11 71 16 30 11/30/19 23:00 22 Mechanical Ventilator 30 11/30/19 23:00 79 15 129/75 (93) 99 11/30/19 22:30 86 16 133/73 (93) 99 11/30/19 22:00 92 18 131/77 (95) 99 11/30/19 22:00 20 Mechanical Ventilator 30 11/30/19 21:30 83 25 114/67 (83) 99 11/30/19 21:00 98 20 130/74 (92) 98 11/30/19 21:00 24 Mechanical Ventilator 30 11/30/19 20:58 96 16 30 11/30/19 20:34 94 145/87 11/30/19 20:30 110 20 145/87 (106) 93 11/30/19 20:00 30 11/30/19 20:00 98.6 92 41 123/70 (87) 98 11/30/19 20:00 Mechanical Ventilator Mechanical Ventilator Mechanical Ventilator 11/30/19 20:00 85 11/30/19 20:00 24 Mechanical Ventilator 30 11/30/19 19:30 97 17 131/69 (89) 98 11/30/19 19:14 102 16 30 11/30/19 19:00 104 17 128/81 (97) 98 11/30/19 19:00 22 Mechanical Ventilator 30 11/30/19 18:30 108 19 145/76 (99) 98 11/30/19 18:07 16 Mechanical Ventilator 30 11/30/19 18:06 18 Mechanical Ventilator 30 11/30/19 18:00 104 17 132/71 (91) 98 11/30/19 18:00 20 Mechanical Ventilator 30 Intake and Output 11/30/19 12/01/19 19:00 07:00 Intake Total 700.5 ml 740 ml Output Total 944 ml 750 ml Balance -243.5 ml -10 ml IV Total 700.5 ml 740 ml Output Urine Total 944 ml 750 ml Laboratory Tests 11/30/19 18:10: Random Amikacin Level 11.2 12/01/19 04:00: White Blood Count 14.8H, Red Blood Count 2.65L, Hemoglobin 8.1L, Hematocrit 24.1L, Mean Corpuscular Volume 91, Mean Corpuscular Hemoglobin 30.5, Mean Corpuscular Hemoglobin Concent 33.5, Red Cell Distribution Width 16.2H, Platelet Count 234, Mean Platelet Volume 4.6L, Neutrophils (%) (Auto) 78.8H, Lymphocytes (%) (Auto) 10.5L, Monocytes (%) (Auto) 7.7, Eosinophils (%) (Auto) 2.2, Basophils (%) (Auto) 0.8, Sodium Level 140, Potassium Level 4.5, Chloride Level 107, Carbon Dioxide Level 21, Anion Gap 12, Blood Urea Nitrogen 68H, Creatinine 5.2H, Estimat Glomerular Filtration Rate 12.8, Glucose Level 72L, Uric Acid 8.4H, Calcium Level 8.6, Phosphorus Level 4.9, Magnesium Level 1.9, Total Bilirubin 0.2, Direct Bilirubin < 0.1, Aspartate Amino Transf (AST/SGOT) 21, Alanine Aminotransferase (ALT/SGPT) 8L, Alkaline Phosphatase 46, Total Protein 6.0L, Albumin 2.2L Height (Feet): 5 Height (Inches): 10.00 Weight (Pounds): 211 Objective Elderly AA man NCAT (+) ETT. (+) NGT neck supple CTA RR abd soft ND no edema Amarjit Galdamez MD Dec 01, 2019 17:48
--- NOTE | 2019-12-01 17:54 | NUR ---
NURSE NOTES: Amikacin blood draw taken to laboratory for analysis, patient remains on fentanyl at 30ml/hr at 300mcg/hr. he is sedated at -2rass score. patient remains NPO with d51/2NS at 50ml/hr.
--- NOTE | 2019-12-01 19:19 | NUR ---
HAND-OFF: Report given to SYED Foster. patient remains on feantnyl drip at 30ml/hr at 300mcg/hr and protonix of 25ml/hr.
--- NOTE | 2019-12-01 19:20 | NUR ---
NURSE NOTES: received from robbie leon pt orally intubated -vent sedated with fent drip at 300 mcg/hr on marlen soft wrest restraint non complaint reposition and suction iv left ua picc dressing dry and intact
[2019-12-01] MEDS: Dyna-Hex 2% Top Sol 2oz TOPIC SCH (20:27)
--- NOTE | 2019-12-01 22:00 | NUR ---
NURSE NOTES:reposition and suction iv infusing well dressing dry and intact
[2019-12-02] VITALS (43 sets, daily range): BP systolic 112–180; BP diastolic 60–111
--- NOTE | 2019-12-02 | NUR ---
NURSE NOTES:comp bed bath done and wound picture done
[2019-12-02] MEDS: Pantoprazole 80 MG in NS 250 ML IV SCH ×3 (00:49→21:07)
--- NOTE | 2019-12-02 02:00 | NUR ---
NURSE NOTES: reposition and suction
[2019-12-02] MEDS: Metoclopramide 10mg/2ml Inj IVP SCH ×3 (02:48→17:19)
--- NOTE | 2019-12-02 04:00 | NUR ---
NURSE NOTES: reposition and suction no acute resp distress noted
[2019-12-02 04:51] LABS: HEMATOCRIT 23.3 % (42.0-52.0); HEMOGLOBIN 7.7 G/DL (14.2-18.0); MEAN CORPUSCULAR VOLUME 90 FL (80-99); PLATELET COUNT 246 K/UL (150-450); RED CELL DISTRIBUTION WIDTH 15.6 % (11.6-14.8); WHITE BLOOD COUNT 14.4 K/UL (4.8-10.8)
[2019-12-02 05:31] LABS: CREATINE KINASE 38 U/L (26-308); GAMMA GLUTAMYL TRANSPEPTIDASE 24 U/L (5-85)
[2019-12-02 05:32] LABS: ALANINE AMINOTRANSFERASE 11 U/L (12-78); ALBUMIN 2.1 G/DL (3.4-5.0); ALBUMIN/GLOBULIN RATIO 0.6 (1.0-2.7); ALKALINE PHOSPHATASE 41 U/L (46-116); ANION GAP 10 mmol/L (5-15); ASPARTATE AMINO TRANSFERASE 15 U/L (15-37); BILIRUBIN,TOTAL 0.3 MG/DL (0.2-1.0); BLOOD UREA NITROGEN 66 mg/dL (7-18); CALCIUM 8.5 MG/DL (8.5-10.1); CARBON DIOXIDE 24 MMOL/L (21-32); CHLORIDE 107 MMOL/L (98-107); CREATININE 5.1 MG/DL (0.55-1.30); POTASSIUM 3.4 MMOL/L (3.5-5.1); SODIUM 141 MMOL/L (136-145)
[2019-12-02] MEDS: D5 1/2NS 1,000 ML IV SCH ×2 (05:42→14:00)
--- NOTE | 2019-12-02 06:00 | NUR ---
NURSE NOTES: asleep on fent drip at 300mcg /hr
[2019-12-02] MEDS: fentaNYL Citrate 2500mcg in NS 250ml IV SCH ×3 (06:03→23:20)
--- NOTE | 2019-12-02 07:18 | NUR ---
HAND-OFF: Report given to geno leon using sbar .
--- NOTE | 2019-12-02 07:30 | NUR ---
NURSE NOTES: Received report from SYED Foster. Observed patient in bed, opens eyes spontaneously to verbal stimuli. Patient is orally intubated with ETT 7.5, 25cm at lip line with vent settings AC 16, TV 500, FiO2 30%, no PEEP. No respiratory distress noted at this time, saturating 100%. RT Sherrill present at bedside for rounds and assessment. security monitor shows a-fib. NGT noted on the left nares, intact, clamped. Patient remains NPO as ordered. Left upper arm PICC line noted, intact, patent, asymptomatic with IV fluids and drips infusing at prescribed rate. Patiño catheter noted, intact, patent, draining well to gravity with pale yellow urine output noted. Bilateral soft wrist restraints remains; safety precautions in place; bed locked, alarmed, and in lowest position, side rails up x3. Will continue to monitor. Addendum: 12/02/19 at 0814 by Emily Sevilla RN Correction on vent settings: Tidal Volume of 550.
--- NOTE | 2019-12-02 08:00 | NUR ---
NURSE NOTES: Patient remains on fentanyl at 30ml/hr at 300mcg/hr; patient is sedated at -2rass score. Protonix drip ongoing at 8mg/hr, 25ml/hr. Patient remains NPO with d51/2NS at 50ml/hr. Dr Hightower present at bedside, assessed patient and discussed plan to try to wean patient today. RT Sherrill notified and made aware as well.
--- NOTE | 2019-12-02 08:29 | NUR ---
RADIOLOGY NOTE: PORTABLE CHEST X-RAY COMPLETED AT 0738 HRS. FA
[2019-12-02] MEDS: Docusate 100mg/10ml Liq NG SCH ×3 (08:30→17:20)
[2019-12-02] MEDS: Metoprolol Tartrate 50mg tab NG SCH ×2 (08:30→21:09)
[2019-12-02] MEDS: Sucralfate 1gm tab NG SCH ×4 (08:30→21:08)
[2019-12-02] MEDS: Meropenem 500 MG in NS 55 ML IVPB SCH ×2 (08:30→21:08)
--- NOTE | 2019-12-02 09:00 | NUR ---
NURSE NOTES: Notified Dr Hightower regarding patient's hgb level today; ordered to transfuse 1 unit of PRBC. Noted, will enter, and will carry out order.
--- NOTE | 2019-12-02 09:12 | Pulmonolgy Critical Care Note ---
Critical Care - Asmt/Plan Problems: (1) Acute hypercapnic respiratory failure (2) Paroxysmal A-fib (3) Anemia, chronic renal failure (4) Acute on chronic renal insufficiency (5) Chronic hepatitis (6) Moderate pulmonary arterial systolic hypertension (7) Left ventricular ejection fraction greater than or equal to 40 percent (8) History of hypertension (9) Alzheimer's dementia (10) BPH (benign prostatic hyperplasia) Respiratory: monitor respiratory rate, adjust FIO2, CXR Cardiac: continue to monitor HR/BP Renal: F/U I&O, check electrolytes Infectious Disease: check cultures Gastrointestinal: continue feedings/current rate Endocrine: monitor blood sugar Hematologic: transfuse if hgb<8.5 Neurologic: keep patient comfortable Affect: PRN ativan Disposition: keep in ICU Notes 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, 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, 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, ID Discussed with: nurses, consultants, 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 - Objective Last 24 Hour Vital Signs Date Time Temp Pulse Resp B/P (MAP) Pulse Ox O2 Delivery O2 Flow Rate FiO2 12/02/19 09:00 82 54 161/87 (111) 98 12/02/19 08:30 98.8 80 46 163/88 (113) 98 12/02/19 08:30 98 156/80 12/02/19 08:30 98 156/80 12/02/19 08:00 30 12/02/19 08:00 Mechanical Ventilator Mechanical Ventilator Mechanical Ventilator Mechanical Ventilator 12/02/19 08:00 79 44 180/99 (126) 98 12/02/19 07:29 98 17 30 12/02/19 07:00 74 45 156/80 (105) 98 12/02/19 06:36 82 20 12/02/19 06:30 80 43 165/90 (115) 98 12/02/19 06:03 20 Mechanical Ventilator 30 12/02/19 06:00 67 43 169/95 (119) 99 12/02/19 06:00 20 Mechanical Ventilator 12/02/19 05:30 60 49 173/67 (102) 100 12/02/19 05:15 98 18 30 12/02/19 05:00 66 40 164/80 (108) 99 12/02/19 05:00 32 Mechanical Ventilator 30 12/02/19 04:30 68 49 169/91 (117) 99 12/02/19 04:00 30 12/02/19 04:00 98.6 65 54 155/82 (106) 99 12/02/19 04:00 26 Mechanical Ventilator 30 12/02/19 04:00 Mechanical Ventilator Mechanical Ventilator Mechanical Ventilator Mechanical Ventilator 12/02/19 04:00 62 12/02/19 03:28 97 17 30 12/02/19 03:00 66 62 168/86 (113) 99 12/02/19 03:00 30 Mechanical Ventilator 12/02/19 02:30 68 54 156/62 (93) 99 12/02/19 02:00 68 49 158/60 (92) 99 12/02/19 02:00 30 Mechanical Ventilator 30 12/02/19 01:30 73 30 160/68 (98) 99 12/02/19 01:18 96 18 30 12/02/19 01:00 82 73 99 12/02/19 01:00 30 Mechanical Ventilator 12/02/19 00:30 84 31 156/76 (102) 88 12/02/19 00:00 28 Mechanical Ventilator 30 12/02/19 00:00 63 12/02/19 00:00 30 12/02/19 00:00 98.2 75 33 159/76 (103) 99 12/02/19 00:00 Mechanical Ventilator Mechanical Ventilator Mechanical Ventilator Mechanical Ventilator 12/01/19 23:00 82 27 135/68 (90) 98 12/01/19 23:00 26 Mechanical Ventilator 30 12/01/19 23:00 99 16 30 12/01/19 22:44 30 Mechanical Ventilator 30 12/01/19 22:30 77 18 150/86 (107) 98 12/01/19 22:00 28 Mechanical Ventilator 30 12/01/19 22:00 70 18 132/71 (91) 99 12/01/19 21:30 74 21 138/86 (103) 98 12/01/19 21:00 78 22 149/84 (105) 97 12/01/19 21:00 26 Mechanical Ventilator 12/01/19 20:45 98 16 30 12/01/19 20:30 85 26 143/81 (101) 98 12/01/19 20:28 86 146/76 12/01/19 20:00 98.5 84 30 146/72 (96) 97 12/01/19 20:00 80 12/01/19 20:00 Mechanical Ventilator Mechanical Ventilator Mechanical Ventilator Mechanical Ventilator 12/01/19 20:00 30 12/01/19 20:00 26 Mechanical Ventilator 30 12/01/19 19:30 83 17 144/81 (102) 98 12/01/19 19:00 18 Mechanical Ventilator 30 12/01/19 19:00 82 18 141/73 (95) 98 12/01/19 18:53 99 16 30 12/01/19 18:30 83 19 134/67 (89) 97 12/01/19 18:00 18 Mechanical Ventilator 30 12/01/19 18:00 88 18 141/85 (103) 97 12/01/19 17:30 89 18 161/84 (109) 97 12/01/19 17:18 99 16 30 12/01/19 17:13 92 151/79 12/01/19 17:00 93 18 151/79 (103) 96 12/01/19 17:00 18 Mechanical Ventilator 30 12/01/19 16:32 173/89 12/01/19 16:30 78 17 155/94 (114) 94 12/01/19 16:00 Mechanical Ventilator Mechanical Ventilator Mechanical Ventilator Mechanical Ventilator 12/01/19 16:00 98.6 74 18 162/95 (117) 95 12/01/19 16:00 19 Mechanical Ventilator 30 12/01/19 16:00 69 12/01/19 16:00 30 12/01/19 15:30 78 17 150/91 (110) 94 12/01/19 15:26 82 16 30 12/01/19 15:00 77 18 156/85 (108) 95 12/01/19 15:00 18 Mechanical Ventilator 30 12/01/19 14:30 80 18 161/101 (121) 94 12/01/19 14:00 17 Mechanical Ventilator 30 12/01/19 14:00 63 18 169/87 (114) 97 12/01/19 13:30 83 18 159/106 (123) 95 12/01/19 13:21 85 16 30 12/01/19 13:00 16 Mechanical Ventilator 30 12/01/19 13:00 79 18 162/85 (110) 95 12/01/19 12:30 76 18 156/92 (113) 96 12/01/19 12:21 16 Mechanical Ventilator 30 12/01/19 12:21 141/84 12/01/19 12:00 66 12/01/19 12:00 Mechanical Ventilator Mechanical Ventilator Mechanical Ventilator Mechanical Ventilator 12/01/19 12:00 18 Mechanical Ventilator 30 12/01/19 12:00 30 12/01/19 12:00 98.3 66 18 141/84 (103) 96 12/01/19 11:30 70 27 132/82 (99) 95 12/01/19 11:25 72 16 30 12/01/19 11:00 63 24 123/65 (84) 96 12/01/19 11:00 17 Mechanical Ventilator 30 12/01/19 10:30 74 40 131/76 (94) 95 12/01/19 10:00 92 39 194/161 (172) 97 12/01/19 10:00 17 Mechanical Ventilator 30 12/01/19 09:46 83 12/01/19 09:30 92 38 162/93 (116) 98 12/01/19 09:29 88 16 30 12/01/19 09:18 71 156/80 12/01/19 09:17 81 156/80 Status: awake Condition: critical HEENT: atraumatic Neck: full ROM Lungs: chest wall tender Heart: HR/BP stable Abdomen: non-tender Extremities: no C/C/E Critical Care - Subjective ROS Limited/Unobtainable: No Condition: critical EKG Rhythm: Sinus Rhythm FI02: 30 Vent Support Breath Rate: 16 Vent Support Mode: AC Vent Tidal Volume: 550 Sputum Amount: Small PEEP: 0.0 PIP: 29 Tube Feeding Amount: 0 I&O: Intake and Output 12/01/19 12/02/19 19:00 07:00 Intake Total 1366.0 ml 1110 ml Output Total 910 ml 710 ml Balance 456.0 ml 400 ml Free Water 160 ml IV Total 1176.0 ml 1110 ml Other 30 ml Output Urine Total 910 ml 710 ml ET-Tube: 7.5 ET Position: 25 Labs: Laboratory Tests Test 12/01/19 18:00 12/02/19 03:52 Random Amikacin Level Pending White Blood Count 14.4 K/UL (4.8-10.8) H Red Blood Count 2.60 M/UL (4.70-6.10) L Hemoglobin 7.7 G/DL (14.2-18.0) L Hematocrit 23.3 % (42.0-52.0) L Mean Corpuscular Volume 90 FL (80-99) Mean Corpuscular Hemoglobin 29.7 PG (27.0-31.0) Mean Corpuscular Hemoglobin Concent 33.2 G/DL (32.0-36.0) Red Cell Distribution Width 15.6 % (11.6-14.8) H Platelet Count 246 K/UL (150-450) Mean Platelet Volume 4.7 FL (6.5-10.1) L Neutrophils (%) (Auto) % (45.0-75.0) Lymphocytes (%) (Auto) % (20.0-45.0) Monocytes (%) (Auto) % (1.0-10.0) Eosinophils (%) (Auto) % (0.0-3.0) Basophils (%) (Auto) % (0.0-2.0) Neutrophils % (Manual) Pending Lymphocytes % (Manual) Pending Platelet Estimate Pending Platelet Morphology Pending Sodium Level 141 MMOL/L (136-145) Potassium Level 3.4 MMOL/L (3.5-5.1) L Chloride Level 107 MMOL/L (98-107) Carbon Dioxide Level 24 MMOL/L (21-32) Anion Gap 10 mmol/L (5-15) Blood Urea Nitrogen 66 mg/dL (7-18) H Creatinine 5.1 MG/DL (0.55-1.30) H Estimat Glomerular Filtration Rate 13.2 mL/min (>60) Glucose Level 90 MG/DL (74-106) Uric Acid 9.7 MG/DL (2.6-7.2) H Calcium Level 8.5 MG/DL (8.5-10.1) Phosphorus Level 4.0 MG/DL (2.5-4.9) Magnesium Level 1.9 MG/DL (1.8-2.4) Total Bilirubin 0.3 MG/DL (0.2-1.0) Gamma Glutamyl Transpeptidase 24 U/L (5-85) Aspartate Amino Transf (AST/SGOT) 15 U/L (15-37) Alanine Aminotransferase (ALT/SGPT) 11 U/L (12-78) L Alkaline Phosphatase 41 U/L (46-116) L Total Creatine Kinase 38 U/L (26-308) C-Reactive Protein, Quantitative 2.1 mg/dL (0.00-0.90) H Pro-B-Type Natriuretic Peptide 87688 pg/mL (0-125) H Total Protein 5.9 G/DL (6.4-8.2) L Albumin 2.1 G/DL (3.4-5.0) L Globulin 3.8 g/dL Albumin/Globulin Ratio 0.6 (1.0-2.7) L Susannah Hightower MD Dec 02, 2019 09:12
--- NOTE | 2019-12-02 09:30 | NUR ---
NURSE NOTES: Dr Ellison present in the unit, aware of patient's BUN and creatinine levels. Notified and made aware of Dr Hightower's order to transfuse blood. No new orders received at this time.
--- NOTE | 2019-12-02 09:57 | Nephrology Progress Note ---
Assessment/Plan Problem List: (1) Acute on chronic renal insufficiency Assessment: Serum creatinine leveling off around 5 (2) Acute hypercapnic respiratory failure (3) Anemia in chronic kidney disease (CKD) (4) BPH (benign prostatic hyperplasia) Assessment Acute renal failure Possible underlying chronic kidney failure Hyperkalemia Anemia other conditions: (1) Acute hypercapnic respiratory failure (2) Paroxysmal A-fib (3) Anemia, chronic renal failure (4) History of hypertension (5) Alzheimer's dementia (6) Chronic hepatitis (7) BPH (benign prostatic hyperplasia) Plan Patient n.p.o. Due for 1 unit of blood transfusion Adjust blood pressure medication Clonidine patch for high blood pressure while n.p.o. On Protonix drip, patient had GI bleed and was transfused 2 units of packed RBCs Will stop aspirin We will change blood pressure medication to IV Carafate through NG tube Per GI Slow hydration Nitrate Trial of Zaroxolyn as chest x-ray indicates worsening CHF as needed Monitor intake and output Monitor renal parameters Avoid nephrotoxic's Kidney ultrasound results noted indicative of chronicity 2D echocardiogram result noted ejection fraction 55% Anemia work-up noted Per orders Discussed with Dr. Zaidi Subjective ROS Limited/Unobtainable: Yes Objective Objective Last 24 Hour Vital Signs Date Time Temp Pulse Resp B/P (MAP) Pulse Ox O2 Delivery O2 Flow Rate FiO2 12/02/19 09:01 80 16 30 12/02/19 09:00 82 54 161/87 (111) 98 12/02/19 09:00 59 Mechanical Ventilator 12/02/19 08:30 98.8 80 46 163/88 (113) 98 12/02/19 08:30 98 156/80 12/02/19 08:30 98 156/80 12/02/19 08:00 30 12/02/19 08:00 Mechanical Ventilator Mechanical Ventilator Mechanical Ventilator Mechanical Ventilator 12/02/19 08:00 52 Mechanical Ventilator 12/02/19 08:00 79 44 180/99 (126) 98 12/02/19 07:29 98 17 30 12/02/19 07:00 43 Mechanical Ventilator 30 12/02/19 07:00 74 45 156/80 (105) 98 12/02/19 06:36 82 20 12/02/19 06:30 80 43 165/90 (115) 98 12/02/19 06:03 20 Mechanical Ventilator 30 12/02/19 06:00 67 43 169/95 (119) 99 12/02/19 06:00 20 Mechanical Ventilator 12/02/19 05:30 60 49 173/67 (102) 100 12/02/19 05:15 98 18 30 12/02/19 05:00 66 40 164/80 (108) 99 12/02/19 05:00 32 Mechanical Ventilator 30 12/02/19 04:30 68 49 169/91 (117) 99 12/02/19 04:00 30 12/02/19 04:00 98.6 65 54 155/82 (106) 99 12/02/19 04:00 26 Mechanical Ventilator 30 12/02/19 04:00 Mechanical Ventilator Mechanical Ventilator Mechanical Ventilator Mechanical Ventilator 12/02/19 04:00 62 12/02/19 03:28 97 17 30 12/02/19 03:00 66 62 168/86 (113) 99 12/02/19 03:00 30 Mechanical Ventilator 12/02/19 02:30 68 54 156/62 (93) 99 12/02/19 02:00 68 49 158/60 (92) 99 12/02/19 02:00 30 Mechanical Ventilator 30 12/02/19 01:30 73 30 160/68 (98) 99 12/02/19 01:18 96 18 30 12/02/19 01:00 82 73 99 12/02/19 01:00 30 Mechanical Ventilator 12/02/19 00:30 84 31 156/76 (102) 88 12/02/19 00:00 28 Mechanical Ventilator 30 12/02/19 00:00 63 12/02/19 00:00 30 12/02/19 00:00 98.2 75 33 159/76 (103) 99 12/02/19 00:00 Mechanical Ventilator Mechanical Ventilator Mechanical Ventilator Mechanical Ventilator 12/01/19 23:00 82 27 135/68 (90) 98 12/01/19 23:00 26 Mechanical Ventilator 30 12/01/19 23:00 99 16 30 12/01/19 22:44 30 Mechanical Ventilator 30 12/01/19 22:30 77 18 150/86 (107) 98 12/01/19 22:00 28 Mechanical Ventilator 30 12/01/19 22:00 70 18 132/71 (91) 99 12/01/19 21:30 74 21 138/86 (103) 98 12/01/19 21:00 78 22 149/84 (105) 97 12/01/19 21:00 26 Mechanical Ventilator 12/01/19 20:45 98 16 30 12/01/19 20:30 85 26 143/81 (101) 98 12/01/19 20:28 86 146/76 12/01/19 20:00 98.5 84 30 146/72 (96) 97 12/01/19 20:00 80 12/01/19 20:00 Mechanical Ventilator Mechanical Ventilator Mechanical Ventilator Mechanical Ventilator 12/01/19 20:00 30 12/01/19 20:00 26 Mechanical Ventilator 30 12/01/19 19:30 83 17 144/81 (102) 98 12/01/19 19:00 18 Mechanical Ventilator 30 12/01/19 19:00 82 18 141/73 (95) 98 12/01/19 18:53 99 16 30 12/01/19 18:30 83 19 134/67 (89) 97 12/01/19 18:00 18 Mechanical Ventilator 30 12/01/19 18:00 88 18 141/85 (103) 97 12/01/19 17:30 89 18 161/84 (109) 97 12/01/19 17:18 99 16 30 12/01/19 17:13 92 151/79 12/01/19 17:00 93 18 151/79 (103) 96 12/01/19 17:00 18 Mechanical Ventilator 30 12/01/19 16:32 173/89 12/01/19 16:30 78 17 155/94 (114) 94 12/01/19 16:00 Mechanical Ventilator Mechanical Ventilator Mechanical Ventilator Mechanical Ventilator 12/01/19 16:00 98.6 74 18 162/95 (117) 95 12/01/19 16:00 19 Mechanical Ventilator 30 12/01/19 16:00 69 12/01/19 16:00 30 12/01/19 15:30 78 17 150/91 (110) 94 12/01/19 15:26 82 16 30 12/01/19 15:00 77 18 156/85 (108) 95 12/01/19 15:00 18 Mechanical Ventilator 30 12/01/19 14:30 80 18 161/101 (121) 94 12/01/19 14:00 17 Mechanical Ventilator 30 12/01/19 14:00 63 18 169/87 (114) 97 12/01/19 13:30 83 18 159/106 (123) 95 12/01/19 13:21 85 16 30 12/01/19 13:00 16 Mechanical Ventilator 30 12/01/19 13:00 79 18 162/85 (110) 95 12/01/19 12:30 76 18 156/92 (113) 96 12/01/19 12:21 16 Mechanical Ventilator 30 12/01/19 12:21 141/84 12/01/19 12:00 66 12/01/19 12:00 Mechanical Ventilator Mechanical Ventilator Mechanical Ventilator Mechanical Ventilator 12/01/19 12:00 18 Mechanical Ventilator 30 12/01/19 12:00 30 12/01/19 12:00 98.3 66 18 141/84 (103) 96 12/01/19 11:30 70 27 132/82 (99) 95 12/01/19 11:25 72 16 30 12/01/19 11:00 63 24 123/65 (84) 96 12/01/19 11:00 17 Mechanical Ventilator 30 12/01/19 10:30 74 40 131/76 (94) 95 12/01/19 10:00 92 39 194/161 (172) 97 12/01/19 10:00 17 Mechanical Ventilator 30 Intake and Output 12/01/19 12/02/19 19:00 07:00 Intake Total 1366.0 ml 1228.5 ml Output Total 910 ml 710 ml Balance 456.0 ml 518.5 ml Free Water 160 ml IV Total 1176.0 ml 1228.5 ml Other 30 ml Output Urine Total 910 ml 710 ml Laboratory Tests 12/01/19 18:00: Random Amikacin Level 7.7 12/02/19 03:52: White Blood Count 14.4H, Red Blood Count 2.60L, Hemoglobin 7.7L, Hematocrit 23.3L, Mean Corpuscular Volume 90, Mean Corpuscular Hemoglobin 29.7, Mean Corpuscular Hemoglobin Concent 33.2, Red Cell Distribution Width 15.6H, Platelet Count 246, Mean Platelet Volume 4.7L, Neutrophils (%) (Auto) , Lymphocytes (%) (Auto) , Monocytes (%) (Auto) , Eosinophils (%) (Auto) , Basophils (%) (Auto) , Differential Total Cells Counted 100, Neutrophils % ( Manual) 86H, Lymphocytes % (Manual) 6L, Monocytes % (Manual) 7, Eosinophils % ( Manual) 1, Basophils % (Manual) 0, Band Neutrophils 0, Platelet Estimate Adequate, Platelet Morphology Normal, Hypochromasia 3+, Anisocytosis 1+, Sodium Level 141, Potassium Level 3.4L, Chloride Level 107, Carbon Dioxide Level 24, Anion Gap 10, Blood Urea Nitrogen 66H, Creatinine 5.1H, Estimat Glomerular Filtration Rate 13.2, Glucose Level 90, Uric Acid 9.7H, Calcium Level 8.5, Phosphorus Level 4.0, Magnesium Level 1.9, Total Bilirubin 0.3, Gamma Glutamyl Transpeptidase 24, Aspartate Amino Transf (AST/SGOT) 15, Alanine Aminotransferase (ALT/SGPT) 11L, Alkaline Phosphatase 41L, Total Creatine Kinase 38, C-Reactive Protein, Quantitative 2.1H, Pro-B-Type Natriuretic Peptide 58013C, Total Protein 5.9L, Albumin 2.1L, Globulin 3.8, Albumin/ Globulin Ratio 0.6L Height (Feet): 5 Height (Inches): 10.00 Weight (Pounds): 211 General Appearance: no apparent distress EENT: other (Intubated and vented) Cardiovascular: normal rate Respiratory/Chest: decreased breath sounds Abdomen: soft Objective No change Reynold Ellison MD Dec 02, 2019 09:57
[2019-12-02] MEDS: Nitroglycerin Patch 0.4mg TDERMAL SCH (10:05)
--- NOTE | 2019-12-02 10:15 | NUR ---
NURSE NOTES: Turned and repositioned patient. Suctioned patient via ETT, moderate amount of clear, thick sputum noted. No BM noted at this time. NGT remains in place. Restraints care provided; released restraints, skin and circulation checked. Reapplied restraints. BUE noted with 2-3+ edema. Blood collected for type and cross, sent down to lab. Bilateral upper and lower extremities elevated and supported with pillows. SCD on bilateral lower extremities in place. No s/s of pain/discomfort at this time. Will continue to monitor.
--- NOTE | 2019-12-02 11:07 | NUR ---
NURSE NOTES: Dr Galdamez present at bedside, seen patient, aware that patient is still on protonix drip @ 25ml/hr. Notified and made aware that patient had no BM last night and this morning. Ordered to start TF Nepro 20ml/hour and titrate with goal of 40ml/hr as tolerated. Will enter and will carry out.
--- NOTE | 2019-12-02 12:00 | NUR ---
NURSE NOTES: Blood transfusion initiated at 1145. Patient is afebrile at this time. Protonix drip and D5 1/2NS on hold. Patient tolerating vent settings, saturating 97%, no acute distress noted. Will continue to monitor.
[2019-12-02] MEDS ORDERED: Amikacin 500 MG in NS 110 ML IV SCH (13:00)
--- NOTE | 2019-12-02 13:01 | NUR ---
NURSE NOTES: TF initiated, Nepro at 20ml/hr as ordered. Will increase according to goal as tolerated by patient. Scheduled medications given. Blood transfusion ongoing, will continue to monitor.
--- NOTE | 2019-12-02 14:03 | Internal Med Progress Note ---
Subjective Date of Service: Dec 02, 2019 Physician Name MarilouAbisai Attending Physician Claude Garza MD Current Medications Medications (Trade) Dose Ordered Sig/Cyndi Route PRN Reason Start Time Stop Time Status Last Admin Dose Admin Acetaminophen (Tylenol) 650 mg Q4H PRN NG Fever 11/21/19 13:00 12/21/19 08:14 11/28/19 16:19 Amikacin Protocol (Amikacin pharmacy to dose) 1 ea DAILY PRN MISC Per rx protocol 11/29/19 15:00 12/29/19 14:59 Amlodipine Besylate (Norvasc) 5 mg BID NG 12/02/19 18:00 12/27/19 12:44 Chlorhexidine Gluconate (Corrie-Hex 2%) 1 applic DAILY@2000 TOPIC 11/27/19 20:00 02/25/20 19:59 12/01/19 20:27 Clonidine HCl (Catapres TTS-3) 1 patch QWEEK TDERMAL 11/30/19 13:00 02/28/20 12:59 11/30/19 12:39 Dextrose (Dextrose 50%) 25 ml Q30M PRN IV Hypoglycemia 11/21/19 08:15 02/19/20 08:14 Dextrose (Dextrose 50%) 50 ml Q30M PRN IV Hypoglycemia 11/21/19 08:15 02/19/20 08:14 Dextrose/Sodium Chloride 1,000 ml @ 25 mls/hr Q24H IV 12/02/19 11:59 01/01/20 11:58 Docusate Sodium (Colace) 100 mg THREE TIMES A DAY NG 11/21/19 13:00 12/21/19 12:59 12/02/19 12:53 Fentanyl Citrate 2500 mcg/Sodium Chloride 250 ml @ 0 mls/hr Q24H IV 11/29/19 16:00 12/06/19 15:59 12/02/19 06:03 Hydralazine HCl (Apresoline) 10 mg Q4H PRN IV BP over 160 sys 11/29/19 13:30 02/27/20 13:29 12/02/19 12:39 Meropenem 500 mg/ Sodium Chloride 55 ml @ 110 mls/hr Q12HR IVPB 11/25/19 14:00 12/05/19 23:59 12/02/19 08:30 Metoclopramide HCl (Reglan) 5 mg Q8H IVP 11/30/19 18:00 12/30/19 17:59 12/02/19 10:05 Metoprolol Tartrate (Lopressor) 50 mg Q12HR NG 11/28/19 21:00 02/19/20 20:59 12/02/19 08:30 Nitroglycerin (Ntg) 1 patch Q24H TDERMAL 11/22/19 11:00 12/22/19 10:59 12/02/19 10:05 Ondansetron HCl (Zofran) 4 mg Q6H PRN IVP Nausea & Vomiting 11/21/19 08:15 12/21/19 08:14 Pantoprazole 80 mg/Sodium Chloride 250 ml @ 25 mls/hr Q10H IV 11/29/19 11:30 12/29/19 11:29 12/02/19 09:30 Polyethylene Glycol (Miralax) 17 gm DAILYPRN PRN NG Constipation 11/21/19 13:00 12/21/19 08:14 Sucralfate (Carafate) 1 gm FOUR TIMES A DAY NG 11/29/19 13:30 02/27/20 13:29 12/02/19 12:53 Allergies: Coded Allergies: LISINOPRIL (Verified Allergy, Unknown, 11/21/19) SIMVASTATIN (Verified Allergy, Unknown, 11/21/19) TERAZOSIN (Verified Allergy, Unknown, 11/21/19) ROS Limited/Unobtainable: Yes Subjective 83 YO M admitted with respiratory failure. Now pneumonia, UTI and sepsis. Cover for [facility]-DR Garza. Intubated and sedated. ICU Objective Last Vital Signs Date Time Temp Pulse Resp B/P (MAP) Pulse Ox O2 Delivery O2 Flow Rate FiO2 12/02/19 13:05 91 16 30 12/02/19 13:00 156/79 (104) 97 12/02/19 12:30 98.9 12/02/19 12:00 Mechanical Ventilator Mechanical Ventilator Mechanical Ventilator Mechanical Ventilator Laboratory Tests Test 12/01/19 18:00 12/02/19 03:52 Random Amikacin Level 7.7 MG/L White Blood Count 14.4 K/UL (4.8-10.8) H Red Blood Count 2.60 M/UL (4.70-6.10) L Hemoglobin 7.7 G/DL (14.2-18.0) L Hematocrit 23.3 % (42.0-52.0) L Mean Corpuscular Volume 90 FL (80-99) Mean Corpuscular Hemoglobin 29.7 PG (27.0-31.0) Mean Corpuscular Hemoglobin Concent 33.2 G/DL (32.0-36.0) Red Cell Distribution Width 15.6 % (11.6-14.8) H Platelet Count 246 K/UL (150-450) Mean Platelet Volume 4.7 FL (6.5-10.1) L Neutrophils (%) (Auto) % (45.0-75.0) Lymphocytes (%) (Auto) % (20.0-45.0) Monocytes (%) (Auto) % (1.0-10.0) Eosinophils (%) (Auto) % (0.0-3.0) Basophils (%) (Auto) % (0.0-2.0) Differential Total Cells Counted 100 Neutrophils % (Manual) 86 % (45-75) H Lymphocytes % (Manual) 6 % (20-45) L Monocytes % (Manual) 7 % (1-10) Eosinophils % (Manual) 1 % (0-3) Basophils % (Manual) 0 % (0-2) Band Neutrophils 0 % (0-8) Platelet Estimate Adequate Platelet Morphology Normal Hypochromasia 3+ Anisocytosis 1+ Sodium Level 141 MMOL/L (136-145) Potassium Level 3.4 MMOL/L (3.5-5.1) L Chloride Level 107 MMOL/L (98-107) Carbon Dioxide Level 24 MMOL/L (21-32) Anion Gap 10 mmol/L (5-15) Blood Urea Nitrogen 66 mg/dL (7-18) H Creatinine 5.1 MG/DL (0.55-1.30) H Estimat Glomerular Filtration Rate 13.2 mL/min (>60) Glucose Level 90 MG/DL (74-106) Uric Acid 9.7 MG/DL (2.6-7.2) H Calcium Level 8.5 MG/DL (8.5-10.1) Phosphorus Level 4.0 MG/DL (2.5-4.9) Magnesium Level 1.9 MG/DL (1.8-2.4) Total Bilirubin 0.3 MG/DL (0.2-1.0) Gamma Glutamyl Transpeptidase 24 U/L (5-85) Aspartate Amino Transf (AST/SGOT) 15 U/L (15-37) Alanine Aminotransferase (ALT/SGPT) 11 U/L (12-78) L Alkaline Phosphatase 41 U/L (46-116) L Total Creatine Kinase 38 U/L (26-308) C-Reactive Protein, Quantitative 2.1 mg/dL (0.00-0.90) H Pro-B-Type Natriuretic Peptide 35828 pg/mL (0-125) H Total Protein 5.9 G/DL (6.4-8.2) L Albumin 2.1 G/DL (3.4-5.0) L Globulin 3.8 g/dL Albumin/Globulin Ratio 0.6 (1.0-2.7) L Intake and Output 12/01/19 12/02/19 19:00 07:00 Intake Total 1366.0 ml 1228.5 ml Output Total 910 ml 710 ml Balance 456.0 ml 518.5 ml Free Water 160 ml IV Total 1176.0 ml 1228.5 ml Other 30 ml Output Urine Total 910 ml 710 ml Objective PHYSICAL EXAMINATION: GENERAL: The patient is well-developed, well-nourished male, who is intubated and sedated in the intensive care unit. HEENT: Eyes, pupils are equal and responsive to light and accommodation. Extraocular movements are intact. NECK: Supple without lymphadenopathy. CHEST: Mech vent; Bilateral expiratory air sounds, otherwise clear to auscultation without rales. CARDIOVASCULAR: Regular rhythm and rate. S1 and S2 normal without murmurs, rubs, or gallops. ABDOMEN: Soft, nontender, and nondistended. Positive bowel sounds. No evidence of hepatosplenomegaly. Currently, no rebound or guarding noted. EXTREMITIES: Negative for clubbing, cyanosis, or edema. RECTAL/GENITAL: Not performed. NEUROLOGIC: Cranial nerves II through XII are grossly intact without focal deficits. Motor strength is 5/5 bilaterally. Deep tendon reflexes are 2+ plantar. Assessment/Plan Assessment/Plan ASSESSMENT: This is an 83-year-old male. 1. Respiratory failure. 2. Congestive heart failure. 3. Atrial fibrillation. 4. Altered mental status. 5. Urinary tract infection. 6. Renal failure. 7. Hypertension. 8. Alzheimer's dementia. 9. Benign prostatic hypertrophy. 10. urinary tract infection-ESBL E. Coli and pseudamonas aeruginosa. 11. Sepsis-Staph Warneri 12. pneumonia=pseudamonas aeruginosa TREATMENT: 1. Congestive heart failure. A Cardiology consultation has been obtained with Dr. Vasu Zaidi. We will follow recommendations of Cardiology. The patient is currently receiving intravenous Lasix. 2. Respiratory failure. A Pulmonary consultation has been obtained with Dr. Susannah Hightower. The patient is currently intubated in the intensive care unit. We will follow recommendations of Pulmonary. ABX=meropenem and vanco per ID=Dr Hicks 3. Atrial fibrillation as above. A Cardiology consultation has been obtained with Dr. Vasu Zaidi. 4. Renal failure. A Nephrology consultation has been obtained with Dr. Ellison. We will follow recommendations of Nephrology. 5. Hypertension. The patient is currently hypotensive in the intensive care unit. 6. Alzheimer's dementia. 7. Benign prostatic hypertrophy. 8. ABX = meropenem per ID Abisai Zamarripa MD Dec 02, 2019 14:03
--- NOTE | 2019-12-02 14:20 | NUR ---
NURSE NOTES: 1 unit of PRBC transfusion completed, no adverse reaction noted. Patient remained afebrile. Dr Zamarripa present at bedside, made rounds and seen patient; updated on patient's hgb level and transfusion order. Aware that patient unable to wean at this time. No new verbal orders received. Dr Zaidi also present at bedside and examined patient, notified and made aware that patient has been hypertensive, hydralazine given. Resumed IV fluids D51/2NS at 50ml/hr, and protonix drip at 25ml/hr. Fentanyl bag replaced; remains at 300mcg/hr, 30m/hr. Will continue to monitor patient.
--- NOTE | 2019-12-02 14:35 | Cardiology Progress Note ---
Assessment/Plan Assessment/Plan 1. Permanent versus paroxysmal episodes of atrial fibrillation. 2. Tachycardia. 3. Renal insufficiency. 4. Obstructive uropathy. 5. History of hypertension. 6. Prostatic hypertrophy. 7. History of latent tuberculosis. 8. History of heart failure. 9. History of hepatitis C infection. 10. Respiratory failure with respiratory acidosis, now on vent 11. melanotic stool 12 large gastric clot cxr personally reviewed tele personally reviewed bp seems ok did nto have to recieve any iv hydralazien after norvasc dose yest will ther egive another not taking po/ gt meds as not clear if he absorbs any will try ond dose of norvasc to day to see torp abn likely due to renal insuf off heparin due to gi bleed s/p 3 unit f prbc d/w rn need to be in neg fluid balance rate control with iv bb egd not successful again du to persistent due to large clot present in the ge junction Subjective ROS Limited/Unobtainable: Yes Subjective vent isolation Objective Last 24 Hour Vital Signs Date Time Temp Pulse Resp B/P (MAP) Pulse Ox O2 Delivery O2 Flow Rate FiO2 12/02/19 14:00 27 Mechanical Ventilator 12/02/19 14:00 94 23 153/81 (105) 97 12/02/19 13:30 95 20 143/73 (96) 97 12/02/19 13:05 91 16 30 12/02/19 13:00 87 16 156/79 (104) 97 12/02/19 12:39 179/94 12/02/19 12:30 98.9 79 36 179/94 (122) 98 12/02/19 12:00 81 12/02/19 12:00 Mechanical Ventilator Mechanical Ventilator Mechanical Ventilator Mechanical Ventilator 12/02/19 12:00 30 12/02/19 12:00 19 Mechanical Ventilator 12/02/19 12:00 81 50 168/111 (130) 95 12/02/19 11:30 78 22 168/93 (118) 97 12/02/19 11:00 27 Mechanical Ventilator 12/02/19 11:00 79 31 170/90 (116) 97 12/02/19 10:55 78 16 30 12/02/19 10:05 170/97 12/02/19 10:00 81 36 170/97 (121) 98 12/02/19 10:00 32 Mechanical Ventilator 12/02/19 09:01 80 16 30 12/02/19 09:00 82 54 161/87 (111) 98 12/02/19 09:00 59 Mechanical Ventilator 12/02/19 08:30 98.8 80 46 163/88 (113) 98 12/02/19 08:30 98 156/80 12/02/19 08:30 98 156/80 12/02/19 08:00 30 12/02/19 08:00 Mechanical Ventilator Mechanical Ventilator Mechanical Ventilator Mechanical Ventilator 12/02/19 08:00 70 12/02/19 08:00 52 Mechanical Ventilator 12/02/19 08:00 79 44 180/99 (126) 98 12/02/19 07:29 98 17 30 12/02/19 07:00 43 Mechanical Ventilator 30 12/02/19 07:00 74 45 156/80 (105) 98 12/02/19 06:36 82 20 12/02/19 06:30 80 43 165/90 (115) 98 12/02/19 06:03 20 Mechanical Ventilator 30 12/02/19 06:00 67 43 169/95 (119) 99 12/02/19 06:00 20 Mechanical Ventilator 12/02/19 05:30 60 49 173/67 (102) 100 12/02/19 05:15 98 18 30 12/02/19 05:00 66 40 164/80 (108) 99 12/02/19 05:00 32 Mechanical Ventilator 30 12/02/19 04:30 68 49 169/91 (117) 99 12/02/19 04:00 30 12/02/19 04:00 98.6 65 54 155/82 (106) 99 12/02/19 04:00 26 Mechanical Ventilator 30 12/02/19 04:00 Mechanical Ventilator Mechanical Ventilator Mechanical Ventilator Mechanical Ventilator 12/02/19 04:00 62 12/02/19 03:28 97 17 30 12/02/19 03:00 66 62 168/86 (113) 99 12/02/19 03:00 30 Mechanical Ventilator 12/02/19 02:30 68 54 156/62 (93) 99 12/02/19 02:00 68 49 158/60 (92) 99 12/02/19 02:00 30 Mechanical Ventilator 30 12/02/19 01:30 73 30 160/68 (98) 99 12/02/19 01:18 96 18 30 12/02/19 01:00 82 73 99 12/02/19 01:00 30 Mechanical Ventilator 12/02/19 00:30 84 31 156/76 (102) 88 12/02/19 00:00 28 Mechanical Ventilator 30 12/02/19 00:00 63 12/02/19 00:00 30 12/02/19 00:00 98.2 75 33 159/76 (103) 99 12/02/19 00:00 Mechanical Ventilator Mechanical Ventilator Mechanical Ventilator Mechanical Ventilator 12/01/19 23:00 82 27 135/68 (90) 98 12/01/19 23:00 26 Mechanical Ventilator 30 12/01/19 23:00 99 16 30 12/01/19 22:44 30 Mechanical Ventilator 30 12/01/19 22:30 77 18 150/86 (107) 98 12/01/19 22:00 28 Mechanical Ventilator 30 12/01/19 22:00 70 18 132/71 (91) 99 12/01/19 21:30 74 21 138/86 (103) 98 12/01/19 21:00 78 22 149/84 (105) 97 12/01/19 21:00 26 Mechanical Ventilator 12/01/19 20:45 98 16 30 12/01/19 20:30 85 26 143/81 (101) 98 12/01/19 20:28 86 146/76 12/01/19 20:00 98.5 84 30 146/72 (96) 97 12/01/19 20:00 80 12/01/19 20:00 Mechanical Ventilator Mechanical Ventilator Mechanical Ventilator Mechanical Ventilator 12/01/19 20:00 30 12/01/19 20:00 26 Mechanical Ventilator 30 12/01/19 19:30 83 17 144/81 (102) 98 12/01/19 19:00 18 Mechanical Ventilator 30 12/01/19 19:00 82 18 141/73 (95) 98 12/01/19 18:53 99 16 30 12/01/19 18:30 83 19 134/67 (89) 97 12/01/19 18:00 18 Mechanical Ventilator 30 12/01/19 18:00 88 18 141/85 (103) 97 12/01/19 17:30 89 18 161/84 (109) 97 12/01/19 17:18 99 16 30 12/01/19 17:13 92 151/79 12/01/19 17:00 93 18 151/79 (103) 96 12/01/19 17:00 18 Mechanical Ventilator 30 12/01/19 16:32 173/89 12/01/19 16:30 78 17 155/94 (114) 94 12/01/19 16:00 Mechanical Ventilator Mechanical Ventilator Mechanical Ventilator Mechanical Ventilator 12/01/19 16:00 98.6 74 18 162/95 (117) 95 12/01/19 16:00 19 Mechanical Ventilator 30 12/01/19 16:00 69 12/01/19 16:00 30 12/01/19 15:30 78 17 150/91 (110) 94 12/01/19 15:26 82 16 30 12/01/19 15:00 77 18 156/85 (108) 95 12/01/19 15:00 18 Mechanical Ventilator 30 General Appearance: no apparent distress, alert, on vent, patient on isolation Neck: supple Cardiovascular: irregularly irregular Respiratory/Chest: lungs clear - anteriorly Abdomen: normal bowel sounds, non tender, soft Extremities: no swelling Intake and Output 12/01/19 12/02/19 19:00 07:00 Intake Total 1366.0 ml 1228.5 ml Output Total 910 ml 710 ml Balance 456.0 ml 518.5 ml Free Water 160 ml IV Total 1176.0 ml 1228.5 ml Other 30 ml Output Urine Total 910 ml 710 ml Laboratory Tests Test 12/01/19 18:00 12/02/19 03:52 Random Amikacin Level 7.7 MG/L White Blood Count 14.4 K/UL (4.8-10.8) H Red Blood Count 2.60 M/UL (4.70-6.10) L Hemoglobin 7.7 G/DL (14.2-18.0) L Hematocrit 23.3 % (42.0-52.0) L Mean Corpuscular Volume 90 FL (80-99) Mean Corpuscular Hemoglobin 29.7 PG (27.0-31.0) Mean Corpuscular Hemoglobin Concent 33.2 G/DL (32.0-36.0) Red Cell Distribution Width 15.6 % (11.6-14.8) H Platelet Count 246 K/UL (150-450) Mean Platelet Volume 4.7 FL (6.5-10.1) L Neutrophils (%) (Auto) % (45.0-75.0) Lymphocytes (%) (Auto) % (20.0-45.0) Monocytes (%) (Auto) % (1.0-10.0) Eosinophils (%) (Auto) % (0.0-3.0) Basophils (%) (Auto) % (0.0-2.0) Differential Total Cells Counted 100 Neutrophils % (Manual) 86 % (45-75) H Lymphocytes % (Manual) 6 % (20-45) L Monocytes % (Manual) 7 % (1-10) Eosinophils % (Manual) 1 % (0-3) Basophils % (Manual) 0 % (0-2) Band Neutrophils 0 % (0-8) Platelet Estimate Adequate Platelet Morphology Normal Hypochromasia 3+ Anisocytosis 1+ Sodium Level 141 MMOL/L (136-145) Potassium Level 3.4 MMOL/L (3.5-5.1) L Chloride Level 107 MMOL/L (98-107) Carbon Dioxide Level 24 MMOL/L (21-32) Anion Gap 10 mmol/L (5-15) Blood Urea Nitrogen 66 mg/dL (7-18) H Creatinine 5.1 MG/DL (0.55-1.30) H Estimat Glomerular Filtration Rate 13.2 mL/min (>60) Glucose Level 90 MG/DL (74-106) Uric Acid 9.7 MG/DL (2.6-7.2) H Calcium Level 8.5 MG/DL (8.5-10.1) Phosphorus Level 4.0 MG/DL (2.5-4.9) Magnesium Level 1.9 MG/DL (1.8-2.4) Total Bilirubin 0.3 MG/DL (0.2-1.0) Gamma Glutamyl Transpeptidase 24 U/L (5-85) Aspartate Amino Transf (AST/SGOT) 15 U/L (15-37) Alanine Aminotransferase (ALT/SGPT) 11 U/L (12-78) L Alkaline Phosphatase 41 U/L (46-116) L Total Creatine Kinase 38 U/L (26-308) C-Reactive Protein, Quantitative 2.1 mg/dL (0.00-0.90) H Pro-B-Type Natriuretic Peptide 76673 pg/mL (0-125) H Total Protein 5.9 G/DL (6.4-8.2) L Albumin 2.1 G/DL (3.4-5.0) L Globulin 3.8 g/dL Albumin/Globulin Ratio 0.6 (1.0-2.7) L Vasu Zaidi MD Dec 02, 2019 14:35
--- NOTE | 2019-12-02 14:35 | NUR ---
NURSE NOTES: Spoke with Abdi, pharmacist regarding remaining fentanyl medication, brought the medication down to pharmacy. Ok to waste in the unit, remaining fentanyl medication wasted in the medication destroyer bottle.
--- NOTE | 2019-12-02 14:56 | General Progress Note ---
Assessment/Plan Status: stable, unchanged Assessment/Plan: Assessment/Plan 1. atrial fibrillation. 2. Tachycardia. 3. Renal insufficiency. 4. Obstructive uropathy. 5. hypertension. 6. Prostatic hypertrophy. 7. History of latent tuberculosis. 8. History of heart failure. 9. History of hepatitis C infection. 10. Respiratory failure with respiratory acidosis, now on vent 11. UGIB 12. Proximal stomach ulcer and GIB, adherent clot, difficult visualization Recommendations restart TF - NPO after MN, in case needs repeat EGD tomorrow reduce IVF to 1/2 Daily CBC PPI Carafate Elevate HOB Re check H&H after transfusion tonight Subjective Allergies: Coded Allergies: LISINOPRIL (Verified Allergy, Unknown, 11/21/19) SIMVASTATIN (Verified Allergy, Unknown, 11/21/19) TERAZOSIN (Verified Allergy, Unknown, 11/21/19) Subjective Above noted d/w staff development nurse no melena H&H slightly lower at Hg 7.7 to be transfused today Objective Last 24 Hour Vital Signs Date Time Temp Pulse Resp B/P (MAP) Pulse Ox O2 Delivery O2 Flow Rate FiO2 12/02/19 14:30 98.4 12/02/19 14:00 27 Mechanical Ventilator 12/02/19 14:00 94 23 153/81 (105) 97 12/02/19 13:30 95 20 143/73 (96) 97 12/02/19 13:05 91 16 30 12/02/19 13:00 87 16 156/79 (104) 97 12/02/19 12:39 179/94 12/02/19 12:30 98.9 79 36 179/94 (122) 98 12/02/19 12:00 81 12/02/19 12:00 Mechanical Ventilator Mechanical Ventilator Mechanical Ventilator Mechanical Ventilator 12/02/19 12:00 30 12/02/19 12:00 19 Mechanical Ventilator 12/02/19 12:00 81 50 168/111 (130) 95 12/02/19 11:30 78 22 168/93 (118) 97 12/02/19 11:00 27 Mechanical Ventilator 12/02/19 11:00 79 31 170/90 (116) 97 12/02/19 10:55 78 16 30 12/02/19 10:05 170/97 12/02/19 10:00 81 36 170/97 (121) 98 12/02/19 10:00 32 Mechanical Ventilator 12/02/19 09:01 80 16 30 12/02/19 09:00 82 54 161/87 (111) 98 12/02/19 09:00 59 Mechanical Ventilator 12/02/19 08:30 98.8 80 46 163/88 (113) 98 12/02/19 08:30 98 156/80 12/02/19 08:30 98 156/80 12/02/19 08:00 30 12/02/19 08:00 Mechanical Ventilator Mechanical Ventilator Mechanical Ventilator Mechanical Ventilator 12/02/19 08:00 70 12/02/19 08:00 52 Mechanical Ventilator 12/02/19 08:00 79 44 180/99 (126) 98 12/02/19 07:29 98 17 30 12/02/19 07:00 43 Mechanical Ventilator 30 12/02/19 07:00 74 45 156/80 (105) 98 12/02/19 06:36 82 20 12/02/19 06:30 80 43 165/90 (115) 98 12/02/19 06:03 20 Mechanical Ventilator 30 12/02/19 06:00 67 43 169/95 (119) 99 12/02/19 06:00 20 Mechanical Ventilator 12/02/19 05:30 60 49 173/67 (102) 100 12/02/19 05:15 98 18 30 12/02/19 05:00 66 40 164/80 (108) 99 12/02/19 05:00 32 Mechanical Ventilator 30 12/02/19 04:30 68 49 169/91 (117) 99 12/02/19 04:00 30 12/02/19 04:00 98.6 65 54 155/82 (106) 99 12/02/19 04:00 26 Mechanical Ventilator 30 12/02/19 04:00 Mechanical Ventilator Mechanical Ventilator Mechanical Ventilator Mechanical Ventilator 12/02/19 04:00 62 12/02/19 03:28 97 17 30 12/02/19 03:00 66 62 168/86 (113) 99 12/02/19 03:00 30 Mechanical Ventilator 12/02/19 02:30 68 54 156/62 (93) 99 12/02/19 02:00 68 49 158/60 (92) 99 12/02/19 02:00 30 Mechanical Ventilator 30 12/02/19 01:30 73 30 160/68 (98) 99 12/02/19 01:18 96 18 30 12/02/19 01:00 82 73 99 12/02/19 01:00 30 Mechanical Ventilator 12/02/19 00:30 84 31 156/76 (102) 88 12/02/19 00:00 28 Mechanical Ventilator 30 12/02/19 00:00 63 12/02/19 00:00 30 12/02/19 00:00 98.2 75 33 159/76 (103) 99 12/02/19 00:00 Mechanical Ventilator Mechanical Ventilator Mechanical Ventilator Mechanical Ventilator 12/01/19 23:00 82 27 135/68 (90) 98 12/01/19 23:00 26 Mechanical Ventilator 30 12/01/19 23:00 99 16 30 12/01/19 22:44 30 Mechanical Ventilator 30 12/01/19 22:30 77 18 150/86 (107) 98 12/01/19 22:00 28 Mechanical Ventilator 30 12/01/19 22:00 70 18 132/71 (91) 99 12/01/19 21:30 74 21 138/86 (103) 98 12/01/19 21:00 78 22 149/84 (105) 97 12/01/19 21:00 26 Mechanical Ventilator 12/01/19 20:45 98 16 30 12/01/19 20:30 85 26 143/81 (101) 98 12/01/19 20:28 86 146/76 12/01/19 20:00 98.5 84 30 146/72 (96) 97 12/01/19 20:00 80 12/01/19 20:00 Mechanical Ventilator Mechanical Ventilator Mechanical Ventilator Mechanical Ventilator 12/01/19 20:00 30 12/01/19 20:00 26 Mechanical Ventilator 30 12/01/19 19:30 83 17 144/81 (102) 98 12/01/19 19:00 18 Mechanical Ventilator 30 12/01/19 19:00 82 18 141/73 (95) 98 12/01/19 18:53 99 16 30 12/01/19 18:30 83 19 134/67 (89) 97 12/01/19 18:00 18 Mechanical Ventilator 30 12/01/19 18:00 88 18 141/85 (103) 97 12/01/19 17:30 89 18 161/84 (109) 97 12/01/19 17:18 99 16 30 12/01/19 17:13 92 151/79 12/01/19 17:00 93 18 151/79 (103) 96 12/01/19 17:00 18 Mechanical Ventilator 30 12/01/19 16:32 173/89 12/01/19 16:30 78 17 155/94 (114) 94 12/01/19 16:00 Mechanical Ventilator Mechanical Ventilator Mechanical Ventilator Mechanical Ventilator 12/01/19 16:00 98.6 74 18 162/95 (117) 95 12/01/19 16:00 19 Mechanical Ventilator 30 12/01/19 16:00 69 12/01/19 16:00 30 12/01/19 15:30 78 17 150/91 (110) 94 12/01/19 15:26 82 16 30 12/01/19 15:00 77 18 156/85 (108) 95 12/01/19 15:00 18 Mechanical Ventilator 30 Intake and Output 12/01/19 12/02/19 19:00 07:00 Intake Total 1366.0 ml 1228.5 ml Output Total 910 ml 710 ml Balance 456.0 ml 518.5 ml Free Water 160 ml IV Total 1176.0 ml 1228.5 ml Other 30 ml Output Urine Total 910 ml 710 ml Laboratory Tests 12/01/19 18:00: Random Amikacin Level 7.7 12/02/19 03:52: White Blood Count 14.4H, Red Blood Count 2.60L, Hemoglobin 7.7L, Hematocrit 23.3L, Mean Corpuscular Volume 90, Mean Corpuscular Hemoglobin 29.7, Mean Corpuscular Hemoglobin Concent 33.2, Red Cell Distribution Width 15.6H, Platelet Count 246, Mean Platelet Volume 4.7L, Neutrophils (%) (Auto) , Lymphocytes (%) (Auto) , Monocytes (%) (Auto) , Eosinophils (%) (Auto) , Basophils (%) (Auto) , Differential Total Cells Counted 100, Neutrophils % ( Manual) 86H, Lymphocytes % (Manual) 6L, Monocytes % (Manual) 7, Eosinophils % ( Manual) 1, Basophils % (Manual) 0, Band Neutrophils 0, Platelet Estimate Adequate, Platelet Morphology Normal, Hypochromasia 3+, Anisocytosis 1+, Sodium Level 141, Potassium Level 3.4L, Chloride Level 107, Carbon Dioxide Level 24, Anion Gap 10, Blood Urea Nitrogen 66H, Creatinine 5.1H, Estimat Glomerular Filtration Rate 13.2, Glucose Level 90, Uric Acid 9.7H, Calcium Level 8.5, Phosphorus Level 4.0, Magnesium Level 1.9, Total Bilirubin 0.3, Gamma Glutamyl Transpeptidase 24, Aspartate Amino Transf (AST/SGOT) 15, Alanine Aminotransferase (ALT/SGPT) 11L, Alkaline Phosphatase 41L, Total Creatine Kinase 38, C-Reactive Protein, Quantitative 2.1H, Pro-B-Type Natriuretic Peptide 58927B, Total Protein 5.9L, Albumin 2.1L, Globulin 3.8, Albumin/ Globulin Ratio 0.6L Height (Feet): 5 Height (Inches): 10.00 Weight (Pounds): 211 Objective Elderly AA man NCAT (+) ETT. (+) NGT neck supple CTA RR abd soft ND no edema Amarjit Galdamez MD Dec 02, 2019 14:56
--- NOTE | 2019-12-02 16:00 | NUR ---
NURSE NOTES: Bed bath given to patient, linens changed, and placed patient in clean gown. Left patient clean and dry. Applied optifoam on sacrum. No BM noted at this time. Restraints care provided; released, skin checked and circulation, reapplied. Patient tolerating vent settings at this time, remains orally intubated. Fentanyl drip remains at 300mcg/hr @ 30ml/hr; patient is sedated at -2rass score, Protonix drip at 25ml/hr, and D51/2NS at 25ml/hr. TF ongoing at 20ml/hr, patient's HOB placed elevated to 30 degrees. Patient is tolerating well. Will continue to monitor.
[2019-12-02] MEDS ORDERED: NS 275ml ONE (17:44)
[2019-12-02] MEDS ORDERED: Tubing IV Secondary IV ONE (17:44)
[2019-12-02] MEDS ORDERED: Sterile Water Irrig 1000ml IRRIG ONE (17:44)
[2019-12-02] MEDS ORDERED: Tubing Blood Filter IV ONE (17:44)
[2019-12-02] MEDS ORDERED: D5 1/2NS 1000ml IV ONE (17:44)
--- NOTE | 2019-12-02 18:00 | NUR ---
NURSE NOTES: Repositioned patient and left clean and dry, no BM noted. Patient remains sedated on -2rass score, fentanyl drip at 300mcg/hr at 30ml/hr. TF ongoing, patient is tolerating well; no n/v/residuals. All scheduled meds given. Restraints care provided, released and skin check performed. Safety precautions in place; bed locked, alarmed, and in lowest position, side rails up x3, and HOB remains at 30 degrees. All needs attended to. Will continue plan of care and will continue to monitor.
[2019-12-02 18:26] LABS: HEMOGLOBIN 9.1 G/DL (14.2-18.0); MEAN CORPUSCULAR VOLUME 95 FL (80-99); PLATELET COUNT 274 K/UL (150-450); RED BLOOD COUNT 2.95 M/UL (4.70-6.10); RED CELL DISTRIBUTION WIDTH 16.9 % (11.6-14.8); WHITE BLOOD COUNT 16.2 K/UL (4.8-10.8)
[2019-12-02 18:32] LABS: BASOPHILS % (AUTO) 0.8 % (0.0-2.0); EOSINOPHILS % (AUTO) 1.7 % (0.0-3.0); LYMPHOCYTES % (AUTO) 4.4 % (20.0-45.0); MONOCYTES % (AUTO) 5.2 % (1.0-10.0); NEUTROPHILS % (AUTO) 87.4 % (45.0-75.0)
--- NOTE | 2019-12-02 19:08 | NUR ---
HAND-OFF: Report given to SYED Foster. Endorsed plan of care.
--- NOTE | 2019-12-02 20:01 | NUR ---
NURSE NOTES: received report from mirian leon orally intubated -vent o2 sat 100% sedated fent drip at 300 mcg/hr open eyes to touch on marlen soft restraint non complaint reposition and suction hr 75 a-fib
[2019-12-02] MEDS: Dyna-Hex 2% Top Sol 2oz TOPIC SCH (21:07)
[2019-12-03] VITALS (46 sets, daily range): BP systolic 62–161; BP diastolic 25–99
--- NOTE | 2019-12-03 01:05 | NUR ---
NURSE NOTES: desaturating, unable to suction, cannot pass thru via ett, clenching on the ett,rt called, bagged patient then drywall stripper helper showed clemente code blue called at 0110,old ett removed and reintubated
--- NOTE | 2019-12-03 01:10 | NUR ---
CODE BLUE: See Code sheet which remains on paper.pls see resuscitation sheet
--- NOTE | 2019-12-03 01:30 | NUR ---
NURSE NOTES: eileen del cid, family member called to inform of code blue, no answer, left a message
[2019-12-03] MEDS: Metoclopramide 10mg/2ml Inj IVP SCH ×3 (02:21→18:09)
--- NOTE | 2019-12-03 02:23 | Diagnostic Imaging Report ---
Indication: Dyspnea Comparison: 12/02/2019 A single view chest radiograph was obtained. Findings: Interval development of a large left pneumothorax demonstrated. Endotracheal tube appears in good position. There is evidence of a right perihilar infiltrate versus pulmonary edema. Generalized prominent pulmonary vascularity and cardiomegaly also demonstrated. IMPRESSION: Large left pneumothorax. Suspected underlying pulmonary edema. Superimposed infiltrate may be present the right perihilar region. Critical value communication by statrad with the ICU 02:22, 12/03/2019.
--- NOTE | 2019-12-03 02:45 | NUR ---
NURSE NOTES: dr erwin called and left message that patient coded, bp 78/41. and er md dr. alston inserted left chest tube
--- NOTE | 2019-12-03 03:22 | Emergency Room Report ---
History of Present Illness General Chief Complaint: Dyspnea/Respdistress Source: Medical Record Present Illness HPI This is an 84-year-old male who was admitted to the ICU with sepsis, pneumonia, respiratory failure intubated. I was called to the ICU for a CODE BLUE. Per nursing staff, patient lost pulse and was hypotensive. According to respiratory therapist, is very hard to bag him. On my arrival, CPR was in progress. Patient received 1 dose of epinephrine already. I do not felt a pulse. Another dose of epinephrine given. He did retain a pulse afterward. I assessed the endotracheal tube and there was difficulty with bagging the patient. When the respiratory therapist tried to suction the endotracheal tube there was difficulty passing the suction catheter. I tried to pass a bougie to reintubate the patient and it was difficult. Because of this I decided to intubate the patient. I removed the old endotracheal tube and intubate the patient with a 7.5 endotracheal tube. There was in good position. There was good oxygen exchange. Respiratory therapist at much easier to bag. No oral endotracheal tube show very thick secretion third of the way up the endotracheal tube. It appeared to be clogged because of that. On a chest x- ray that showed a pneumothorax so I placed this chest tube. This reinflated the lung. Patient is currently in the ICU on current therapy. Primary care doctor and barbering teacher made aware. Allergies: Coded Allergies: LISINOPRIL (Verified Allergy, Unknown, 11/21/19) SIMVASTATIN (Verified Allergy, Unknown, 11/21/19) TERAZOSIN (Verified Allergy, Unknown, 11/21/19) Patient History Past Medical History: see triage record, old chart reviewed Past Surgical History: other Pertinent Family History: none Social History: Denies: smoking Immunizations: other Reviewed Nursing Documentation: PMH: Agreed; PSxH: Agreed Nursing Documentation-PMH Past Medical History Deferred: Pt Cognitively Impaired Hx Hypertension: Yes Hx Cancer: No Hx Dementia: Yes Review of Systems Respiratory: Reports: shortness of breath All Other Systems: limited - Secondary to cardiac arrest Physical Exam Vital Signs Date Time Temp Pulse Resp B/P (MAP) Pulse Ox O2 Delivery O2 Flow Rate FiO2 11/29/19 07:00 82 16 126/81 (96) 100 11/29/19 07:00 Mechanical Ventilator 30 11/29/19 08:00 98.2 Sp02 EP Interpretation: abnormal General Appearance: moderate distress, other - Unresponsive Head: normocephalic, atraumatic Eyes: bilateral eye PERRL, bilateral eye EOMI ENT: other - Endotracheal and OG tube Neck: full range of motion, supple, no meningismus Respiratory: chest non-tender, other - No spontaneous respiration Cardiovascular #1: other - No pulse without CPR Gastrointestinal: normal bowel sounds, non tender, no mass, no organomegaly, no bruit, non-distended Musculoskeletal: swelling Neurologic: other - Unresponsive Procedures Critical Care Time Critical Care Time Critical care is mandated in this patient who presented with cardiac arrest and pneumothorax. Patient require my urgent intervention to attenuate the risks of metabolic collapse which may lead to cardiovascular collapse and . Critical care time is 35 minutes excluding any reportable procedure. Critical care time included evaluation, multiple reevaluation, looking at old charts, interpreting laboratory and diagnostic data, discussing case with patient and family and consultants, and charting. Chest Tube Chest Tube : Consent: Emergent Chest Tube Location: fifth interspace Size of Greek Tube (cm): 32 Chest Tube Procedure: betadine prep, sterile drapes applied, sterile dressing applied Roth of Air Centre: Yes Number of Attempts: One Tube Drainage: see nurses notes Tube Sutured to Skin: Yes Post Procedure CXR?: Yes Patient Tolerated: Well Complications: None CPR/Code Blue CPR/Code Blue Narrative Please see nursing note and sheet for full information with list of medication given and time. Patient received 2 doses of epinephrine. Intubation Intubation : Consent: Emergent Intubation Method: orotracheal Tube Size (cm): 7.5 Breath Sounds after Intubation: equal Intubation Complications: no complications Post Intubation Xray: Yes Progress/Xray Impression: Endotracheal tube in good position. Ptx on left lung Attempts: One Patient Tolerated: Well Complications: None Medical Decision Making Diagnostic Impression: Primary Impression: Sepsis Qualified Codes: A41.9 - Sepsis, unspecified organism; R65.20 - Severe sepsis without septic shock Additional Impressions: Urinary tract infection Qualified Codes: T83.511A - Infection and inflammatory reaction due to indwelling urethral catheter, initial encounter; N39.0 - Urinary tract infection , site not specified Renal failure Qualified Codes: N19 - Unspecified kidney failure Respiratory failure Qualified Codes: J96.01 - Acute respiratory failure with hypoxia; J96.02 - Acute respiratory failure with hypercapnia Pneumonia Qualified Codes: J18.9 - Pneumonia, unspecified organism Cardiac arrest Pneumothorax on left ER Course Patient with cardiac arrest. Also had pneumothorax. Patient had to be reintubated. Better now. Chest X-Ray Diagnostic Results Chest X-Ray Diagnostic Results #1: Chest X-Ray Ordered: Yes # of Views/Limited/Complete: 1 View Indication: Shortness of Breath EP Interpretation: Yes Interpretation: other - Endotracheal tube in good position. Pneumothorax on left. pleural effusion bilaterally. Impression: Other - ETT and PTx Electronically Signed by: Fidel Thomas MD Chest X-Ray Diagnostic Results #2: Chest X-Ray Ordered: Yes # of Views/Limited/Complete: 1 View Indication: Shortness of Breath EP Interpretation: Yes Interpretation: no pneumothorax, other - no ptx, CT in good position. SQ air. Impression: Other - s/p chest tube placement Electronically Signed by: Fidel Thomas MD Last Vital Signs Date Time Temp Pulse Resp B/P (MAP) Pulse Ox O2 Delivery O2 Flow Rate FiO2 12/03/19 01:00 40 Mechanical Ventilator 30 12/03/19 00:45 80 12/03/19 00:00 98.4 153/77 (102) 97 Status: improved Disposition: ADMITTED INPATIENT Condition: Critical Referrals: NON PHYSICIAN (PCP) Fidel Thomas MD Dec 03, 2019 03:22
--- NOTE | 2019-12-03 03:45 | Diagnostic Imaging Report ---
Indication: Dyspnea Comparison: 12/03/2019 A single view chest radiograph was obtained. Findings: Left chest tube has been placed and is in good position. Pneumothorax has resolved. There is a small amount of subcutaneous air that is developed along the left chest wall. No change otherwise. There is evidence of a right pleural effusion. The heart is enlarged but stable. Tubes and lines are stable. IMPRESSION: Status post left chest tube placement with resolution of pneumothorax. No change otherwise
--- NOTE | 2019-12-03 04:00 | NUR ---
NURSE NOTES: comp bed bath reposition and suction
[2019-12-03] MEDS: Pantoprazole 80 MG in NS 250 ML IV SCH ×2 (05:45→16:20)
[2019-12-03 05:59] LABS: HEMOGLOBIN 9.5 G/DL (14.2-18.0); MEAN CORPUSCULAR VOLUME 92 FL (80-99); PLATELET COUNT 269 K/UL (150-450); RED BLOOD COUNT 3.06 M/UL (4.70-6.10); RED CELL DISTRIBUTION WIDTH 15.2 % (11.6-14.8); WHITE BLOOD COUNT 21.5 K/UL (4.8-10.8)
--- NOTE | 2019-12-03 06:00 | NUR ---
NURSE NOTES: pt sedated with fent drip at 50 mcg/hr obtunded
[2019-12-03 07:04] LABS: ALANINE AMINOTRANSFERASE 11 U/L (12-78); ALBUMIN 2.1 G/DL (3.4-5.0); ALBUMIN/GLOBULIN RATIO 0.5 (1.0-2.7); ALKALINE PHOSPHATASE 53 U/L (46-116); ANION GAP 12 mmol/L (5-15); ASPARTATE AMINO TRANSFERASE 28 U/L (15-37); BILIRUBIN,TOTAL 0.4 MG/DL (0.2-1.0); BLOOD UREA NITROGEN 65 mg/dL (7-18); CALCIUM 8.7 MG/DL (8.5-10.1); CARBON DIOXIDE 21 MMOL/L (21-32); CHLORIDE 108 MMOL/L (98-107); CREATININE 5.2 MG/DL (0.55-1.30); PHOSPHORUS 4.8 MG/DL (2.5-4.9); POTASSIUM 3.4 MMOL/L (3.5-5.1); SODIUM 141 MMOL/L (136-145)
--- NOTE | 2019-12-03 07:43 | NUR ---
HAND-OFF: Report given to funmi leon.
--- NOTE | 2019-12-03 07:44 | NUR ---
NURSE NOTES: Pt received from SYED Argueta. Pt noted with RASS -2, opens eyes for 6 sec when called by name, unable to follow commands. Pupils are equal and round 2mm bilaterally with sluggish light rxn. Bilat hand noted with 3+ pitting edema. Bilat radial pulses 3+ and dorsalis pedis 2+. axillary temp noted 98.8 F ax. Pt noted in Afib to diagnostic cardiac sonographer. Pt is intubated with 7.5 ETT noted 23 cm at left lip corner, with the following settings: AC 16 TV 550 FiO2 80% without Peep. Bilat upper lung lobes noted with rhonchi and bilat lower lungs noted diminished. Pt has a left nares NGT clamped. GT stoma site noted without redness, drainage, or swelling. Abd is slightly firm, round, and non-tender with active bowel sounds to all quadrants. Pt has a f/c draining yellow urine w/ sedimentation. Skin alterations noted- pt on MAISHA mattress. Pt has a THAD double lumen PICC running protonix drip at 25 cc/hr, D5 1/2 NS at 25 cc/hr and fentanyl drip running 50 mcg/hr. Bilat soft wrist restraints noted, bilat radial pulses palpable and wrist skin intact without redness. SCDs on bilat lower extremitied. Bed is in lowest position, alarm on, side rails up x 3, call light within reach, SCDs on bilat lower extremities, pt provided education on fall precaution. Will continue to monitor. Addendum: 12/03/19 at 1444 by Nuris Manley RN Late entry: Pt also has a chest tube noted in left lateral chest with dry and intact dressing draining serosanguineous drainage at 20 cm H20 on continuos suction, no air leak present. Addendum: 12/04/19 at 1222 by Nuris Manley RN Amendment: (Pt has no GT site - exclude this sentence written in error).
[2019-12-03] MEDS: Meropenem 500 MG in NS 55 ML IVPB SCH ×2 (08:23→21:14)
[2019-12-03] MEDS: Docusate 100mg/10ml Liq NG SCH ×3 (08:23→18:08)
[2019-12-03] MEDS: Sucralfate 1gm tab NG SCH ×4 (08:24→21:13)
[2019-12-03] MEDS: Metoprolol Tartrate 50mg tab NG SCH ×2 (08:24→21:13)
--- NOTE | 2019-12-03 09:47 | Pulmonolgy Critical Care Note ---
Critical Care - Asmt/Plan Problems: (1) Acute hypercapnic respiratory failure (2) Paroxysmal A-fib (3) Anemia, chronic renal failure (4) Acute on chronic renal insufficiency (5) Chronic hepatitis (6) Moderate pulmonary arterial systolic hypertension (7) Left ventricular ejection fraction greater than or equal to 40 percent (8) History of hypertension (9) Alzheimer's dementia (10) BPH (benign prostatic hyperplasia) Respiratory: monitor respiratory rate, adjust FIO2, CXR Cardiac: stop pressors, continue to monitor HR/BP Renal: F/U I&O, keep IV fluid, check electrolytes Infectious Disease: check cultures, continue antibiotics Gastrointestinal: continue feedings/current rate, abdominal imaging Endocrine: monitor blood sugar Hematologic: monitor H/H, transfuse if hgb<8.5 Neurologic: PRN Ativan, PRN Morphine, keep patient comfortable Affect: PRN ativan Time Spent (Minutes): 40 Notes Reviewed: engineer remote control diesel, cardio, renal Discussed with: nurses, consultants, case fitteraccounts manager - Objective Last 24 Hour Vital Signs Date Time Temp Pulse Resp B/P (MAP) Pulse Ox O2 Delivery O2 Flow Rate FiO2 12/03/19 09:30 80 16 138/89 (105) 100 12/03/19 09:20 81 16 30 12/03/19 09:00 16 Mechanical Ventilator 80 12/03/19 09:00 83 16 146/99 (115) 100 12/03/19 08:30 88 16 159/94 (115) 100 12/03/19 08:24 90 146/94 12/03/19 08:24 90 146/94 12/03/19 08:00 82 12/03/19 08:00 15 Mechanical Ventilator 80 12/03/19 08:00 Mechanical Ventilator Mechanical Ventilator Mechanical Ventilator 12/03/19 08:00 80 12/03/19 08:00 98.8 80 15 146/94 (111) 100 12/03/19 07:20 80 16 30 12/03/19 07:00 79 16 150/93 (112) 100 12/03/19 07:00 16 Mechanical Ventilator 80 12/03/19 06:30 74 16 143/89 (107) 100 12/03/19 06:30 82 20 12/03/19 06:00 98.5 78 16 136/90 (105) 100 12/03/19 05:30 76 16 150/94 (112) 100 12/03/19 05:03 74 18 30 12/03/19 05:00 73 16 148/91 (110) 98 12/03/19 05:00 20 Mechanical Ventilator 80 12/03/19 04:30 71 16 133/88 (103) 98 12/03/19 04:00 Mechanical Ventilator Mechanical Ventilator Mechanical Ventilator Mechanical Ventilator 12/03/19 04:00 82 12/03/19 04:00 80 12/03/19 04:00 16 Mechanical Ventilator 80 12/03/19 04:00 76 16 118/84 (95) 98 12/03/19 03:30 74 16 116/67 (83) 100 12/03/19 03:00 16 Mechanical Ventilator 80 12/03/19 03:00 81 18 107/68 (81) 100 12/03/19 02:50 70 16 30 12/03/19 02:30 102 16 62/35 (44) 84 12/03/19 02:00 16 Mechanical Ventilator 30 12/03/19 02:00 124 19 67/25 (39) 86 12/03/19 01:30 159 18 124/77 (93) 92 12/03/19 01:00 40 Mechanical Ventilator 30 12/03/19 01:00 78 17 142/87 (105) 97 12/03/19 01:00 99 16 139/74 (95) 83 12/03/19 00:45 99 20 90 12/03/19 00:45 80 18 30 12/03/19 00:30 78 17 142/87 (105) 97 12/03/19 00:30 78 17 142/87 (105) 97 12/03/19 00:15 81 16 97 12/03/19 00:00 98.4 79 29 153/77 (102) 97 12/03/19 00:00 84 12/03/19 00:00 Mechanical Ventilator Mechanical Ventilator Mechanical Ventilator Mechanical Ventilator 12/03/19 00:00 79 29 153/77 (102) 97 12/03/19 00:00 38 Mechanical Ventilator 30 12/03/19 00:00 30 12/02/19 23:30 77 16 145/81 (102) 97 12/02/19 23:20 20 Mechanical Ventilator 30 12/02/19 23:00 78 41 147/73 (97) 97 12/02/19 22:45 79 17 30 12/02/19 22:30 83 48 141/65 (90) 96 12/02/19 22:00 83 41 135/69 (91) 97 12/02/19 22:00 30 Mechanical Ventilator 30 12/02/19 21:30 79 55 134/76 (95) 98 12/02/19 21:15 81 16 30 12/02/19 21:09 80 130/75 12/02/19 21:00 28 Mechanical Ventilator 30 12/02/19 21:00 90 57 130/75 (93) 97 12/02/19 20:30 80 18 123/74 (90) 96 12/02/19 20:00 98.6 76 44 126/66 (86) 97 12/02/19 20:00 24 Mechanical Ventilator 30 12/02/19 20:00 30 12/02/19 20:00 75 12/02/19 20:00 Mechanical Ventilator Mechanical Ventilator Mechanical Ventilator Mechanical Ventilator 12/02/19 19:30 82 49 128/62 (84) 98 12/02/19 19:05 94 16 30 12/02/19 19:00 78 24 135/78 (97) 97 12/02/19 18:30 82 16 125/78 (94) 97 12/02/19 18:00 88 17 112/73 (86) 97 12/02/19 18:00 18 Mechanical Ventilator 12/02/19 17:30 96 17 118/70 (86) 97 12/02/19 17:20 97 147/72 12/02/19 17:00 101 29 147/72 (97) 96 12/02/19 17:00 21 Mechanical Ventilator 12/02/19 16:32 98 16 30 12/02/19 16:30 98.6 85 35 147/80 (102) 98 12/02/19 16:00 85 12/02/19 16:00 21 Mechanical Ventilator 12/02/19 16:00 30 12/02/19 16:00 90 18 126/80 (95) 97 12/02/19 16:00 Mechanical Ventilator Mechanical Ventilator Mechanical Ventilator Mechanical Ventilator 12/02/19 15:30 95 32 150/84 (106) 96 12/02/19 15:00 30 Mechanical Ventilator 12/02/19 15:00 90 35 129/68 (88) 97 12/02/19 14:30 98.4 12/02/19 14:30 95 29 151/71 (97) 97 12/02/19 14:00 27 Mechanical Ventilator 12/02/19 14:00 94 23 153/81 (105) 97 12/02/19 13:30 95 20 143/73 (96) 97 12/02/19 13:05 91 16 30 12/02/19 13:00 27 Mechanical Ventilator 12/02/19 13:00 87 16 156/79 (104) 97 12/02/19 12:39 179/94 12/02/19 12:30 98.9 79 36 179/94 (122) 98 12/02/19 12:00 81 12/02/19 12:00 Mechanical Ventilator Mechanical Ventilator Mechanical Ventilator Mechanical Ventilator 12/02/19 12:00 30 12/02/19 12:00 19 Mechanical Ventilator 12/02/19 12:00 81 50 168/111 (130) 95 12/02/19 11:30 78 22 168/93 (118) 97 12/02/19 11:00 27 Mechanical Ventilator 12/02/19 11:00 79 31 170/90 (116) 97 12/02/19 10:55 78 16 30 12/02/19 10:05 170/97 12/02/19 10:00 81 36 170/97 (121) 98 12/02/19 10:00 32 Mechanical Ventilator Status: awake Condition: critical HEENT: atraumatic Neck: full ROM Lungs: clear Heart: HR/BP stable Abdomen: soft Extremities: no C/C/E Critical Care - Subjective ROS Limited/Unobtainable: No Condition: critical EKG Rhythm: Sinus Rhythm FI02: 30 Vent Support Breath Rate: 16 Vent Support Mode: AC Vent Tidal Volume: 550 Sputum Amount: Small PEEP: 0.0 PIP: 45 Tube Feeding Amount: 0 I&O: Intake and Output 12/02/19 12/03/19 19:00 07:00 Intake Total 1405 ml 880 ml Output Total 715 ml 1680 ml Balance 690 ml -800 ml Free Water 30 ml IV Total 905 ml 765 ml Tube Feeding 120 ml 85 ml Blood Product 250 ml Other 130 ml Output Urine Total 715 ml 730 ml Stool Total 950 ml CXR: chest tube at left chest ET-Tube: 7.5 ET Position: 23 Labs: Laboratory Tests Test 12/02/19 17:55 12/03/19 05:15 White Blood Count 16.2 K/UL (4.8-10.8) H 21.5 K/UL (4.8-10.8) H Red Blood Count 2.95 M/UL (4.70-6.10) L 3.06 M/UL (4.70-6.10) L Hemoglobin 9.1 G/DL (14.2-18.0) L 9.5 G/DL (14.2-18.0) L Hematocrit 28.0 % (42.0-52.0) L 28.0 % (42.0-52.0) L Mean Corpuscular Volume 95 FL (80-99) 92 FL (80-99) Mean Corpuscular Hemoglobin 30.7 PG (27.0-31.0) 31.0 PG (27.0-31.0) Mean Corpuscular Hemoglobin Concent 32.4 G/DL (32.0-36.0) 33.8 G/DL (32.0-36.0) Red Cell Distribution Width 16.9 % (11.6-14.8) H 15.2 % (11.6-14.8) H Platelet Count 274 K/UL (150-450) 269 K/UL (150-450) Mean Platelet Volume 5.3 FL (6.5-10.1) L 4.6 FL (6.5-10.1) L Neutrophils (%) (Auto) 87.4 % (45.0-75.0) H % (45.0-75.0) Lymphocytes (%) (Auto) 4.4 % (20.0-45.0) L % (20.0-45.0) Monocytes (%) (Auto) 5.2 % (1.0-10.0) % (1.0-10.0) Eosinophils (%) (Auto) 1.7 % (0.0-3.0) % (0.0-3.0) Basophils (%) (Auto) 0.8 % (0.0-2.0) % (0.0-2.0) Differential Total Cells Counted 100 Neutrophils % (Manual) 95 % (45-75) H Lymphocytes % (Manual) 3 % (20-45) L Monocytes % (Manual) 2 % (1-10) Eosinophils % (Manual) 0 % (0-3) Basophils % (Manual) 0 % (0-2) Band Neutrophils 0 % (0-8) Platelet Estimate Adequate Platelet Morphology Normal Anisocytosis 1+ Sodium Level 141 MMOL/L (136-145) Potassium Level 3.4 MMOL/L (3.5-5.1) L Chloride Level 108 MMOL/L (98-107) H Carbon Dioxide Level 21 MMOL/L (21-32) Anion Gap 12 mmol/L (5-15) Blood Urea Nitrogen 65 mg/dL (7-18) H Creatinine 5.2 MG/DL (0.55-1.30) H Estimat Glomerular Filtration Rate 12.8 mL/min (>60) Glucose Level 97 MG/DL (74-106) Calcium Level 8.7 MG/DL (8.5-10.1) Phosphorus Level 4.8 MG/DL (2.5-4.9) Magnesium Level 1.9 MG/DL (1.8-2.4) Total Bilirubin 0.4 MG/DL (0.2-1.0) Aspartate Amino Transf (AST/SGOT) 28 U/L (15-37) Alanine Aminotransferase (ALT/SGPT) 11 U/L (12-78) L Alkaline Phosphatase 53 U/L (46-116) Total Protein 6.2 G/DL (6.4-8.2) L Albumin 2.1 G/DL (3.4-5.0) L Globulin 4.1 g/dL Albumin/Globulin Ratio 0.5 (1.0-2.7) L Susannah Hightower MD Dec 03, 2019 09:47
--- NOTE | 2019-12-03 09:51 | NUR ---
NURSE NOTES: Dr Hightower and Terra at bedside. Pt repositioned, no acute distress noted at this time.
[2019-12-03] MEDS: Nitroglycerin Patch 0.4mg TDERMAL SCH (10:35)
[2019-12-03] MEDS: fentaNYL Citrate 2500mcg in NS 250ml IV SCH (10:40)
--- NOTE | 2019-12-03 10:46 | Nephrology Progress Note ---
Assessment/Plan Problem List: (1) Acute on chronic renal insufficiency Assessment: Serum creatinine leveling off around 5 (2) Acute hypercapnic respiratory failure (3) Anemia in chronic kidney disease (CKD) (4) BPH (benign prostatic hyperplasia) Assessment Acute renal failure Possible underlying chronic kidney failure Hyperkalemia Anemia other conditions: (1) Acute hypercapnic respiratory failure (2) Paroxysmal A-fib (3) Anemia, chronic renal failure (4) History of hypertension (5) Alzheimer's dementia (6) Chronic hepatitis (7) BPH (benign prostatic hyperplasia) Plan RN reports that the patient was reintubated due to respiratory difficulty. The ET tube was changed. Patient n.p.o. Patient was transfused previously. Adjust blood pressure medication Clonidine patch for high blood pressure while n.p.o. On Protonix drip, patient had GI bleed and was transfused 2 units of packed RBCs Will stop aspirin We will change blood pressure medication to IV Carafate through NG tube Per GI Slow hydration Nitrate Trial of Zaroxolyn as chest x-ray indicates worsening CHF as needed Monitor intake and output Monitor renal parameters Avoid nephrotoxic's Kidney ultrasound results noted indicative of chronicity 2D echocardiogram result noted ejection fraction 55% Anemia work-up noted Per orders Discussed with Dr. Zaidi Subjective ROS Limited/Unobtainable: Yes Objective Objective Last 24 Hour Vital Signs Date Time Temp Pulse Resp B/P (MAP) Pulse Ox O2 Delivery O2 Flow Rate FiO2 12/03/19 10:40 23 Mechanical Ventilator 80 12/03/19 10:35 155/99 12/03/19 10:00 83 16 136/93 (107) 100 12/03/19 09:30 80 16 138/89 (105) 100 12/03/19 09:20 81 16 30 12/03/19 09:00 16 Mechanical Ventilator 80 12/03/19 09:00 83 16 146/99 (115) 100 12/03/19 08:30 88 16 159/94 (115) 100 12/03/19 08:24 90 146/94 12/03/19 08:24 90 146/94 12/03/19 08:00 82 12/03/19 08:00 15 Mechanical Ventilator 80 12/03/19 08:00 Mechanical Ventilator Mechanical Ventilator Mechanical Ventilator 12/03/19 08:00 80 12/03/19 08:00 98.8 80 15 146/94 (111) 100 12/03/19 07:20 80 16 30 12/03/19 07:00 79 16 150/93 (112) 100 12/03/19 07:00 16 Mechanical Ventilator 80 12/03/19 06:30 74 16 143/89 (107) 100 12/03/19 06:30 82 20 12/03/19 06:00 98.5 78 16 136/90 (105) 100 12/03/19 05:30 76 16 150/94 (112) 100 12/03/19 05:03 74 18 30 12/03/19 05:00 73 16 148/91 (110) 98 12/03/19 05:00 20 Mechanical Ventilator 80 12/03/19 04:30 71 16 133/88 (103) 98 12/03/19 04:00 Mechanical Ventilator Mechanical Ventilator Mechanical Ventilator Mechanical Ventilator 12/03/19 04:00 82 12/03/19 04:00 80 12/03/19 04:00 16 Mechanical Ventilator 80 12/03/19 04:00 76 16 118/84 (95) 98 12/03/19 03:30 74 16 116/67 (83) 100 12/03/19 03:00 16 Mechanical Ventilator 80 12/03/19 03:00 81 18 107/68 (81) 100 12/03/19 02:50 70 16 30 12/03/19 02:30 102 16 62/35 (44) 84 12/03/19 02:00 16 Mechanical Ventilator 30 12/03/19 02:00 124 19 67/25 (39) 86 12/03/19 01:30 159 18 124/77 (93) 92 12/03/19 01:00 40 Mechanical Ventilator 30 12/03/19 01:00 78 17 142/87 (105) 97 12/03/19 01:00 99 16 139/74 (95) 83 12/03/19 00:45 99 20 90 12/03/19 00:45 80 18 30 12/03/19 00:30 78 17 142/87 (105) 97 12/03/19 00:30 78 17 142/87 (105) 97 12/03/19 00:15 81 16 97 12/03/19 00:00 98.4 79 29 153/77 (102) 97 12/03/19 00:00 84 12/03/19 00:00 Mechanical Ventilator Mechanical Ventilator Mechanical Ventilator Mechanical Ventilator 12/03/19 00:00 79 29 153/77 (102) 97 12/03/19 00:00 38 Mechanical Ventilator 30 12/03/19 00:00 30 12/02/19 23:30 77 16 145/81 (102) 97 12/02/19 23:20 20 Mechanical Ventilator 30 12/02/19 23:00 78 41 147/73 (97) 97 12/02/19 22:45 79 17 30 12/02/19 22:30 83 48 141/65 (90) 96 12/02/19 22:00 83 41 135/69 (91) 97 12/02/19 22:00 30 Mechanical Ventilator 30 12/02/19 21:30 79 55 134/76 (95) 98 12/02/19 21:15 81 16 30 12/02/19 21:09 80 130/75 12/02/19 21:00 28 Mechanical Ventilator 30 12/02/19 21:00 90 57 130/75 (93) 97 12/02/19 20:30 80 18 123/74 (90) 96 12/02/19 20:00 98.6 76 44 126/66 (86) 97 12/02/19 20:00 24 Mechanical Ventilator 30 12/02/19 20:00 30 12/02/19 20:00 75 12/02/19 20:00 Mechanical Ventilator Mechanical Ventilator Mechanical Ventilator Mechanical Ventilator 12/02/19 19:30 82 49 128/62 (84) 98 12/02/19 19:05 94 16 30 12/02/19 19:00 78 24 135/78 (97) 97 12/02/19 18:30 82 16 125/78 (94) 97 12/02/19 18:00 88 17 112/73 (86) 97 12/02/19 18:00 18 Mechanical Ventilator 12/02/19 17:30 96 17 118/70 (86) 97 12/02/19 17:20 97 147/72 12/02/19 17:00 101 29 147/72 (97) 96 12/02/19 17:00 21 Mechanical Ventilator 12/02/19 16:32 98 16 30 12/02/19 16:30 98.6 85 35 147/80 (102) 98 12/02/19 16:00 85 12/02/19 16:00 21 Mechanical Ventilator 12/02/19 16:00 30 12/02/19 16:00 90 18 126/80 (95) 97 12/02/19 16:00 Mechanical Ventilator Mechanical Ventilator Mechanical Ventilator Mechanical Ventilator 12/02/19 15:30 95 32 150/84 (106) 96 12/02/19 15:00 30 Mechanical Ventilator 12/02/19 15:00 90 35 129/68 (88) 97 12/02/19 14:30 98.4 12/02/19 14:30 95 29 151/71 (97) 97 12/02/19 14:00 27 Mechanical Ventilator 12/02/19 14:00 94 23 153/81 (105) 97 12/02/19 13:30 95 20 143/73 (96) 97 12/02/19 13:05 91 16 30 12/02/19 13:00 27 Mechanical Ventilator 12/02/19 13:00 87 16 156/79 (104) 97 12/02/19 12:39 179/94 12/02/19 12:30 98.9 79 36 179/94 (122) 98 12/02/19 12:00 81 12/02/19 12:00 Mechanical Ventilator Mechanical Ventilator Mechanical Ventilator Mechanical Ventilator 12/02/19 12:00 30 12/02/19 12:00 19 Mechanical Ventilator 12/02/19 12:00 81 50 168/111 (130) 95 12/02/19 11:30 78 22 168/93 (118) 97 12/02/19 11:00 27 Mechanical Ventilator 12/02/19 11:00 79 31 170/90 (116) 97 12/02/19 10:55 78 16 30 Intake and Output 12/02/19 12/03/19 19:00 07:00 Intake Total 1405 ml 880 ml Output Total 715 ml 1680 ml Balance 690 ml -800 ml Free Water 30 ml IV Total 905 ml 765 ml Tube Feeding 120 ml 85 ml Blood Product 250 ml Other 130 ml Output Urine Total 715 ml 730 ml Stool Total 950 ml Laboratory Tests 12/02/19 17:55: White Blood Count 16.2H, Red Blood Count 2.95L, Hemoglobin 9.1L, Hematocrit 28.0L, Mean Corpuscular Volume 95, Mean Corpuscular Hemoglobin 30.7, Mean Corpuscular Hemoglobin Concent 32.4, Red Cell Distribution Width 16.9H, Platelet Count 274, Mean Platelet Volume 5.3L, Neutrophils (%) (Auto) 87.4H, Lymphocytes (%) (Auto) 4.4L, Monocytes (%) (Auto) 5.2, Eosinophils (%) (Auto) 1.7, Basophils (%) (Auto) 0.8 12/03/19 05:15: White Blood Count 21.5H, Red Blood Count 3.06L, Hemoglobin 9.5L, Hematocrit 28.0L, Mean Corpuscular Volume 92, Mean Corpuscular Hemoglobin 31.0, Mean Corpuscular Hemoglobin Concent 33.8, Red Cell Distribution Width 15.2H, Platelet Count 269, Mean Platelet Volume 4.6L, Neutrophils (%) (Auto) , Lymphocytes (%) (Auto) , Monocytes (%) (Auto) , Eosinophils (%) (Auto) , Basophils (%) (Auto) , Differential Total Cells Counted 100, Neutrophils % ( Manual) 95H, Lymphocytes % (Manual) 3L, Monocytes % (Manual) 2, Eosinophils % ( Manual) 0, Basophils % (Manual) 0, Band Neutrophils 0, Platelet Estimate Adequate, Platelet Morphology Normal, Anisocytosis 1+, Sodium Level 141, Potassium Level 3.4L, Chloride Level 108H, Carbon Dioxide Level 21, Anion Gap 12 , Blood Urea Nitrogen 65H, Creatinine 5.2H, Estimat Glomerular Filtration Rate 12.8, Glucose Level 97, Calcium Level 8.7, Phosphorus Level 4.8, Magnesium Level 1.9, Total Bilirubin 0.4, Aspartate Amino Transf (AST/SGOT) 28, Alanine Aminotransferase (ALT/SGPT) 11L, Alkaline Phosphatase 53, Total Protein 6.2L, Albumin 2.1L, Globulin 4.1, Albumin/Globulin Ratio 0.5L Height (Feet): 5 Height (Inches): 10.00 Weight (Pounds): 214 General Appearance: no apparent distress EENT: other - Intubated and vented Cardiovascular: normal rate - Rate 83 Respiratory/Chest: decreased breath sounds Abdomen: distended Objective No change Reynold Ellison MD Dec 03, 2019 10:46
[2019-12-03] MEDS: D5 1/2NS 1,000 ML IV SCH (11:53)
--- NOTE | 2019-12-03 12:00 | NUR ---
NURSE NOTES: Pt cleaned and repositioned, oral care provided, no acute distress noted. Pt now asleep and continues to open eyes for 6-8 sec when called by name.
--- NOTE | 2019-12-03 12:26 | General Progress Note ---
Assessment/Plan Status: stable, unchanged Assessment/Plan: Assessment/Plan: Assessment/Plan 1. atrial fibrillation. 2. Tachycardia. 3. Renal insufficiency. 4. Obstructive uropathy. 5. hypertension. 6. Prostatic hypertrophy. 7. History of latent tuberculosis. 8. History of heart failure. 9. History of hepatitis C infection. 10. Respiratory failure with respiratory acidosis, now on vent 11. UGIB 12. Proximal stomach ulcer and GIB, adherent clot, difficult visualization Recommendations restart TF - Daily CBC PPI Carafate Elevate HOB fu H&H ivf management per nephro Subjective ROS Limited/Unobtainable: No Allergies: Coded Allergies: LISINOPRIL (Verified Allergy, Unknown, 11/21/19) SIMVASTATIN (Verified Allergy, Unknown, 11/21/19) TERAZOSIN (Verified Allergy, Unknown, 11/21/19) Objective Last 24 Hour Vital Signs Date Time Temp Pulse Resp B/P (MAP) Pulse Ox O2 Delivery O2 Flow Rate FiO2 12/03/19 12:00 80 12/03/19 11:25 90 16 30 12/03/19 10:40 23 Mechanical Ventilator 80 12/03/19 10:35 155/99 12/03/19 10:00 83 16 136/93 (107) 100 12/03/19 09:30 80 16 138/89 (105) 100 12/03/19 09:20 81 16 30 12/03/19 09:00 16 Mechanical Ventilator 80 12/03/19 09:00 83 16 146/99 (115) 100 12/03/19 08:30 88 16 159/94 (115) 100 12/03/19 08:24 90 146/94 12/03/19 08:24 90 146/94 12/03/19 08:00 82 12/03/19 08:00 15 Mechanical Ventilator 80 12/03/19 08:00 Mechanical Ventilator Mechanical Ventilator Mechanical Ventilator 12/03/19 08:00 80 12/03/19 08:00 98.8 80 15 146/94 (111) 100 12/03/19 07:20 80 16 30 12/03/19 07:00 79 16 150/93 (112) 100 12/03/19 07:00 16 Mechanical Ventilator 80 12/03/19 06:30 74 16 143/89 (107) 100 12/03/19 06:30 82 20 12/03/19 06:00 98.5 78 16 136/90 (105) 100 12/03/19 05:30 76 16 150/94 (112) 100 12/03/19 05:03 74 18 30 12/03/19 05:00 73 16 148/91 (110) 98 12/03/19 05:00 20 Mechanical Ventilator 80 12/03/19 04:30 71 16 133/88 (103) 98 12/03/19 04:00 Mechanical Ventilator Mechanical Ventilator Mechanical Ventilator Mechanical Ventilator 12/03/19 04:00 82 12/03/19 04:00 80 12/03/19 04:00 16 Mechanical Ventilator 80 12/03/19 04:00 76 16 118/84 (95) 98 12/03/19 03:30 74 16 116/67 (83) 100 12/03/19 03:00 16 Mechanical Ventilator 80 12/03/19 03:00 81 18 107/68 (81) 100 12/03/19 02:50 70 16 30 12/03/19 02:30 102 16 62/35 (44) 84 12/03/19 02:00 16 Mechanical Ventilator 30 12/03/19 02:00 124 19 67/25 (39) 86 12/03/19 01:30 159 18 124/77 (93) 92 12/03/19 01:00 40 Mechanical Ventilator 30 12/03/19 01:00 78 17 142/87 (105) 97 12/03/19 01:00 99 16 139/74 (95) 83 12/03/19 00:45 99 20 90 12/03/19 00:45 80 18 30 12/03/19 00:30 78 17 142/87 (105) 97 12/03/19 00:30 78 17 142/87 (105) 97 12/03/19 00:15 81 16 97 12/03/19 00:00 98.4 79 29 153/77 (102) 97 12/03/19 00:00 84 12/03/19 00:00 Mechanical Ventilator Mechanical Ventilator Mechanical Ventilator Mechanical Ventilator 12/03/19 00:00 79 29 153/77 (102) 97 12/03/19 00:00 38 Mechanical Ventilator 30 12/03/19 00:00 30 12/02/19 23:30 77 16 145/81 (102) 97 12/02/19 23:20 20 Mechanical Ventilator 30 12/02/19 23:00 78 41 147/73 (97) 97 12/02/19 22:45 79 17 30 12/02/19 22:30 83 48 141/65 (90) 96 12/02/19 22:00 83 41 135/69 (91) 97 12/02/19 22:00 30 Mechanical Ventilator 30 12/02/19 21:30 79 55 134/76 (95) 98 12/02/19 21:15 81 16 30 12/02/19 21:09 80 130/75 12/02/19 21:00 28 Mechanical Ventilator 30 12/02/19 21:00 90 57 130/75 (93) 97 12/02/19 20:30 80 18 123/74 (90) 96 12/02/19 20:00 98.6 76 44 126/66 (86) 97 12/02/19 20:00 24 Mechanical Ventilator 30 12/02/19 20:00 30 12/02/19 20:00 75 12/02/19 20:00 Mechanical Ventilator Mechanical Ventilator Mechanical Ventilator Mechanical Ventilator 12/02/19 19:30 82 49 128/62 (84) 98 12/02/19 19:05 94 16 30 12/02/19 19:00 78 24 135/78 (97) 97 12/02/19 18:30 82 16 125/78 (94) 97 12/02/19 18:00 88 17 112/73 (86) 97 12/02/19 18:00 18 Mechanical Ventilator 12/02/19 17:30 96 17 118/70 (86) 97 12/02/19 17:20 97 147/72 12/02/19 17:00 101 29 147/72 (97) 96 12/02/19 17:00 21 Mechanical Ventilator 12/02/19 16:32 98 16 30 12/02/19 16:30 98.6 85 35 147/80 (102) 98 12/02/19 16:00 85 12/02/19 16:00 21 Mechanical Ventilator 12/02/19 16:00 30 12/02/19 16:00 90 18 126/80 (95) 97 12/02/19 16:00 Mechanical Ventilator Mechanical Ventilator Mechanical Ventilator Mechanical Ventilator 12/02/19 15:30 95 32 150/84 (106) 96 12/02/19 15:00 30 Mechanical Ventilator 12/02/19 15:00 90 35 129/68 (88) 97 12/02/19 14:30 98.4 12/02/19 14:30 95 29 151/71 (97) 97 12/02/19 14:00 27 Mechanical Ventilator 12/02/19 14:00 94 23 153/81 (105) 97 12/02/19 13:30 95 20 143/73 (96) 97 12/02/19 13:05 91 16 30 12/02/19 13:00 27 Mechanical Ventilator 12/02/19 13:00 87 16 156/79 (104) 97 12/02/19 12:39 179/94 12/02/19 12:30 98.9 79 36 179/94 (122) 98 Intake and Output 12/02/19 12/03/19 19:00 07:00 Intake Total 1405 ml 880 ml Output Total 715 ml 1680 ml Balance 690 ml -800 ml Free Water 30 ml IV Total 905 ml 765 ml Tube Feeding 120 ml 85 ml Blood Product 250 ml Other 130 ml Output Urine Total 715 ml 730 ml Stool Total 950 ml Laboratory Tests 12/02/19 17:55: White Blood Count 16.2H, Red Blood Count 2.95L, Hemoglobin 9.1L, Hematocrit 28.0L, Mean Corpuscular Volume 95, Mean Corpuscular Hemoglobin 30.7, Mean Corpuscular Hemoglobin Concent 32.4, Red Cell Distribution Width 16.9H, Platelet Count 274, Mean Platelet Volume 5.3L, Neutrophils (%) (Auto) 87.4H, Lymphocytes (%) (Auto) 4.4L, Monocytes (%) (Auto) 5.2, Eosinophils (%) (Auto) 1.7, Basophils (%) (Auto) 0.8 12/03/19 05:15: White Blood Count 21.5H, Red Blood Count 3.06L, Hemoglobin 9.5L, Hematocrit 28.0L, Mean Corpuscular Volume 92, Mean Corpuscular Hemoglobin 31.0, Mean Corpuscular Hemoglobin Concent 33.8, Red Cell Distribution Width 15.2H, Platelet Count 269, Mean Platelet Volume 4.6L, Neutrophils (%) (Auto) , Lymphocytes (%) (Auto) , Monocytes (%) (Auto) , Eosinophils (%) (Auto) , Basophils (%) (Auto) , Differential Total Cells Counted 100, Neutrophils % ( Manual) 95H, Lymphocytes % (Manual) 3L, Monocytes % (Manual) 2, Eosinophils % ( Manual) 0, Basophils % (Manual) 0, Band Neutrophils 0, Platelet Estimate Adequate, Platelet Morphology Normal, Anisocytosis 1+, Sodium Level 141, Potassium Level 3.4L, Chloride Level 108H, Carbon Dioxide Level 21, Anion Gap 12 , Blood Urea Nitrogen 65H, Creatinine 5.2H, Estimat Glomerular Filtration Rate 12.8, Glucose Level 97, Calcium Level 8.7, Phosphorus Level 4.8, Magnesium Level 1.9, Total Bilirubin 0.4, Aspartate Amino Transf (AST/SGOT) 28, Alanine Aminotransferase (ALT/SGPT) 11L, Alkaline Phosphatase 53, Total Protein 6.2L, Albumin 2.1L, Globulin 4.1, Albumin/Globulin Ratio 0.5L Height (Feet): 5 Height (Inches): 10.00 Weight (Pounds): 214 General Appearance: no apparent distress EENT: normal ENT inspection Neck: supple Cardiovascular: normal rate Respiratory/Chest: decreased breath sounds Abdomen: normal bowel sounds, non tender, soft Extremities: non-tender Hunter Sierra MD Dec 03, 2019 12:26
--- NOTE | 2019-12-03 14:00 | NUR ---
NURSE NOTES: Pt repositioned, no acute distress noted. TF continued with Nepro at 20 cc/hr, no gastric residuals noted, will continue to advance to goal of 40 as tolerated.
--- NOTE | 2019-12-03 14:52 | Diagnostic Imaging Report ---
Indication: Dyspnea Comparison: 11/28/2019 A single view chest radiograph was obtained. Findings: Worsening CHF demonstrated with hazy prominent pulmonary vessels, hazy prominent chaz and interstitial densities. The heart is enlarged. Endotracheal tube is 2 cm above the stephania. PICC line is present in good position with the tip projected over the left innominate vein. There are hazy basilar densities which may be pleural effusions. IMPRESSION: Worsening CHF. 6 bilateral pleural effusions suspected. PICC line noted
--- NOTE | 2019-12-03 15:04 | NUR ---
CASE MANAGEMENT: REVIEW 12/01/2019 SI:S/P EMERGENCY EGD 11/29/19 GI BLEED ACUTE RESP FAILURE W/ HYPERCAPNIA 98.5 84 30 146/72 97% ON MECH VENT FIO2 30 LABS: WBC 14.8 H/H 8.1/24.1 BUN 68 CREAT 5.2 BGLU 72 IS: IV MEROPENEM BID IV D5 @25ML/HR IV PROTONIX Q10HRS NORVASC NG QD LOPRESSOR NG Q12H FENTANYL IV PER PARAMETERS REGLAN IV Q8H NTG TD Q24HR CLONIDINE TD QWK SUCRALFATE NG QQID \: INTENSIVE CARE UNIT PLAN: NPO Serial CBC PPI Carafate Elevate HOB will start TF soon CASE MANAGEMENT: REVIEW 12/02/2019 SI:S/P EMERGENCY EGD 11/29/19 SPUTUM CX (+) PSEUDOMONAS AERUGINOSA GI BLEED ACUTE RESP FAILURE W/ HYPERCAPNIA . UTI 98.6 85 35 147/80 98% ON MECH VENT FIO2 30 LABS: WBC 16.2 H/H 7.7/23.3 K+ 3.4 BUN 66 CREAT 5.1 URIC ACID 9.7 CRPRO 2.1 BNP [id number] IS: IV MEROPENEM BID IV D5 @25ML/HR IV PROTONIX Q10HRS NORVASC NG QD LOPRESSOR NG Q12H FENTANYL IV PER PARAMETERS REGLAN IV Q8H NTG TD Q24HR CLONIDINE TD QWK SUCRALFATE NG QQID \: INTENSIVE CARE UNIT DCP: MITCH SHAFTER WHEN STABLE PLAN: NPO after MN, in case needs repeat EGD tomorrow reduce IVF to 1/2 Daily CBC BLOOD TX X1 Re check H&H after transfusion tonight CASE MANAGEMENT: REVIEW 12/03/2019 SI:S/P CODE BLUE 12/03/19 S/P EMERGENCY EGD 11/29/19 SPUTUM CX (+) PSEUDOMONAS AERUGINOSA GI BLEED ACUTE RESP FAILURE W/ HYPERCAPNIA . UTI 99.4 99 18 150/88 98% ON MECH VENT FIO2 30 LABS: WBC 21.5 H/H 9.5/28 K+ 3.3 BUN 65 CREAT 5.2 IS: IV MEROPENEM BID IV D5 @25ML/HR IV PROTONIX Q10HRS NORVASC NG QD LOPRESSOR NG Q12H FENTANYL IV PER PARAMETERS REGLAN IV Q8H NTG TD Q24HR CLONIDINE TD QWK SUCRALFATE NG QQID \: INTENSIVE CARE UNIT DCP: MITCH [place] WHEN STABLE PLAN: restart TF Daily CBC MONITOR WBC- TRENDING UP NEURO CHECK/BEHAVIORAL RESTRAINT CHECK Addendum: 12/04/19 at 1127 by MARINO CLARK LVN CHEST X-RAY: 12/03/19 + LARGE LEFT PNEUMOTHORAX PULMONARY EDEMA
--- NOTE | 2019-12-03 16:00 | NUR ---
NURSE NOTES: Pt cleaned and repositioned, oral care provided, no acute distress noted at this time. Addendum: 12/03/19 at 2002 by Nuris Manley RN Late entry: Dr Galarza at bedside assessing pt.
--- NOTE | 2019-12-03 16:19 | Infectious Diseases Prog Note ---
Assessment/Plan Assessment/Plan ASSESSMENT: This is an 83-year-old male. Afebrile Leukocytosis ( 2nd to GI bleed, arrest, pneumothorax) Possible PNA superimposed on CHF exacerbation - 12/02 CXR: Large left pneumothorax. Suspected underlying pulmonary edema. Superimposed infiltrate may be present the right perihilar region. - Respiratory failure: m/l 2/2 CHF, elevated BNP) - Sp Cx PSA Probable UTI - UCX : PSA and ESBL E Coli GPC Bacteremia - BCx 11/21/19 Staph warneri 2/2 sets - BCx 11/22/19 - Neg - 2D Echo : No Veg SP EGD Congestive heart failure. Atrial fibrillation. Altered mental status. Urinary tract infection. Renal failure. Hypertension. Alzheimer's dementia. BPH P: Cont pt on IV Merrem # 10/10 , cont Amikacin # 5/ 7 ( Urine coverage ) -11/29 SP IV Vancomycin #9 -11/23 Sp Rocephin # 4 Monitor CBC, CMP Monitor CXR Rsp support GI Follow DW RN Subjective Allergies: Coded Allergies: LISINOPRIL (Verified Allergy, Unknown, 11/21/19) SIMVASTATIN (Verified Allergy, Unknown, 11/21/19) TERAZOSIN (Verified Allergy, Unknown, 11/21/19) Subjective Afebrile. Coded at 1AM. per report, pt desatted, unable to suction, could not pass thru ETT, ETT clenched, bagged pt, old ETT removed, reintubated. CXR showed pneumothorax. SP chest tube. FiO2 80% No pressors Objective Vital Signs Last 24 Hour Vital Signs Date Time Temp Pulse Resp B/P (MAP) Pulse Ox O2 Delivery O2 Flow Rate FiO2 12/03/19 15:00 95 21 151/95 (113) 97 12/03/19 14:00 21 Mechanical Ventilator 80 12/03/19 14:00 98 21 142/93 (109) 95 12/03/19 13:30 86 16 122/73 (89) 98 12/03/19 13:20 85 16 30 12/03/19 13:00 16 Mechanical Ventilator 80 12/03/19 13:00 100 16 136/82 (100) 95 12/03/19 12:30 93 20 161/96 (117) 97 12/03/19 12:00 Mechanical Ventilator Mechanical Ventilator Mechanical Ventilator 12/03/19 12:00 18 Mechanical Ventilator 80 12/03/19 12:00 99.4 99 18 150/88 (108) 98 12/03/19 12:00 94 12/03/19 12:00 80 12/03/19 11:30 97 17 157/88 (111) 98 12/03/19 11:25 90 16 30 12/03/19 11:00 15 Mechanical Ventilator 80 12/03/19 11:00 94 15 145/97 (113) 99 12/03/19 10:40 23 Mechanical Ventilator 80 12/03/19 10:39 16 Mechanical Ventilator 80 12/03/19 10:35 155/99 12/03/19 10:30 95 21 155/99 (117) 100 12/03/19 10:00 83 16 136/93 (107) 100 12/03/19 10:00 16 Mechanical Ventilator 80 12/03/19 09:30 80 16 138/89 (105) 100 12/03/19 09:20 81 16 30 12/03/19 09:00 16 Mechanical Ventilator 80 12/03/19 09:00 83 16 146/99 (115) 100 12/03/19 08:30 88 16 159/94 (115) 100 12/03/19 08:24 90 146/94 12/03/19 08:24 90 146/94 12/03/19 08:00 82 12/03/19 08:00 15 Mechanical Ventilator 80 12/03/19 08:00 Mechanical Ventilator Mechanical Ventilator Mechanical Ventilator 12/03/19 08:00 80 12/03/19 08:00 98.8 80 15 146/94 (111) 100 12/03/19 07:20 80 16 30 12/03/19 07:00 79 16 150/93 (112) 100 12/03/19 07:00 16 Mechanical Ventilator 80 12/03/19 06:30 74 16 143/89 (107) 100 12/03/19 06:30 82 20 12/03/19 06:00 98.5 78 16 136/90 (105) 100 12/03/19 05:30 76 16 150/94 (112) 100 12/03/19 05:03 74 18 30 12/03/19 05:00 73 16 148/91 (110) 98 12/03/19 05:00 20 Mechanical Ventilator 80 12/03/19 04:30 71 16 133/88 (103) 98 12/03/19 04:00 Mechanical Ventilator Mechanical Ventilator Mechanical Ventilator Mechanical Ventilator 12/03/19 04:00 82 12/03/19 04:00 80 12/03/19 04:00 16 Mechanical Ventilator 80 12/03/19 04:00 76 16 118/84 (95) 98 12/03/19 03:30 74 16 116/67 (83) 100 12/03/19 03:00 16 Mechanical Ventilator 80 12/03/19 03:00 81 18 107/68 (81) 100 12/03/19 02:50 70 16 30 12/03/19 02:30 102 16 62/35 (44) 84 12/03/19 02:00 16 Mechanical Ventilator 30 12/03/19 02:00 124 19 67/25 (39) 86 12/03/19 01:30 159 18 124/77 (93) 92 12/03/19 01:00 40 Mechanical Ventilator 30 12/03/19 01:00 78 17 142/87 (105) 97 12/03/19 01:00 99 16 139/74 (95) 83 12/03/19 00:45 99 20 90 12/03/19 00:45 80 18 30 12/03/19 00:30 78 17 142/87 (105) 97 12/03/19 00:30 78 17 142/87 (105) 97 12/03/19 00:15 81 16 97 12/03/19 00:00 98.4 79 29 153/77 (102) 97 12/03/19 00:00 84 12/03/19 00:00 Mechanical Ventilator Mechanical Ventilator Mechanical Ventilator Mechanical Ventilator 12/03/19 00:00 79 29 153/77 (102) 97 12/03/19 00:00 38 Mechanical Ventilator 30 12/03/19 00:00 30 12/02/19 23:30 77 16 145/81 (102) 97 12/02/19 23:20 20 Mechanical Ventilator 30 12/02/19 23:00 78 41 147/73 (97) 97 12/02/19 22:45 79 17 30 12/02/19 22:30 83 48 141/65 (90) 96 12/02/19 22:00 83 41 135/69 (91) 97 12/02/19 22:00 30 Mechanical Ventilator 30 12/02/19 21:30 79 55 134/76 (95) 98 12/02/19 21:15 81 16 30 12/02/19 21:09 80 130/75 12/02/19 21:00 28 Mechanical Ventilator 30 12/02/19 21:00 90 57 130/75 (93) 97 12/02/19 20:30 80 18 123/74 (90) 96 12/02/19 20:00 98.6 76 44 126/66 (86) 97 12/02/19 20:00 24 Mechanical Ventilator 30 12/02/19 20:00 30 12/02/19 20:00 75 12/02/19 20:00 Mechanical Ventilator Mechanical Ventilator Mechanical Ventilator Mechanical Ventilator 12/02/19 19:30 82 49 128/62 (84) 98 12/02/19 19:05 94 16 30 12/02/19 19:00 78 24 135/78 (97) 97 12/02/19 18:30 82 16 125/78 (94) 97 12/02/19 18:00 88 17 112/73 (86) 97 12/02/19 18:00 18 Mechanical Ventilator 12/02/19 17:30 96 17 118/70 (86) 97 12/02/19 17:20 97 147/72 12/02/19 17:00 101 29 147/72 (97) 96 12/02/19 17:00 21 Mechanical Ventilator 12/02/19 16:32 98 16 30 12/02/19 16:30 98.6 85 35 147/80 (102) 98 Height (Feet): 5 Height (Inches): 10.00 Weight (Pounds): 214 Objective Gen: NAD CV: RRR. no rubs or gallop. Pulm: RRR. equal chest rise. Chest tube. Abd: soft. nondistended Neuro: sedated Laboratory Tests Test 12/02/19 17:55 12/03/19 05:15 White Blood Count 16.2 K/UL (4.8-10.8) H 21.5 K/UL (4.8-10.8) H Red Blood Count 2.95 M/UL (4.70-6.10) L 3.06 M/UL (4.70-6.10) L Hemoglobin 9.1 G/DL (14.2-18.0) L 9.5 G/DL (14.2-18.0) L Hematocrit 28.0 % (42.0-52.0) L 28.0 % (42.0-52.0) L Mean Corpuscular Volume 95 FL (80-99) 92 FL (80-99) Mean Corpuscular Hemoglobin 30.7 PG (27.0-31.0) 31.0 PG (27.0-31.0) Mean Corpuscular Hemoglobin Concent 32.4 G/DL (32.0-36.0) 33.8 G/DL (32.0-36.0) Red Cell Distribution Width 16.9 % (11.6-14.8) H 15.2 % (11.6-14.8) H Platelet Count 274 K/UL (150-450) 269 K/UL (150-450) Mean Platelet Volume 5.3 FL (6.5-10.1) L 4.6 FL (6.5-10.1) L Neutrophils (%) (Auto) 87.4 % (45.0-75.0) H % (45.0-75.0) Lymphocytes (%) (Auto) 4.4 % (20.0-45.0) L % (20.0-45.0) Monocytes (%) (Auto) 5.2 % (1.0-10.0) % (1.0-10.0) Eosinophils (%) (Auto) 1.7 % (0.0-3.0) % (0.0-3.0) Basophils (%) (Auto) 0.8 % (0.0-2.0) % (0.0-2.0) Differential Total Cells Counted 100 Neutrophils % (Manual) 95 % (45-75) H Lymphocytes % (Manual) 3 % (20-45) L Monocytes % (Manual) 2 % (1-10) Eosinophils % (Manual) 0 % (0-3) Basophils % (Manual) 0 % (0-2) Band Neutrophils 0 % (0-8) Platelet Estimate Adequate Platelet Morphology Normal Anisocytosis 1+ Sodium Level 141 MMOL/L (136-145) Potassium Level 3.4 MMOL/L (3.5-5.1) L Chloride Level 108 MMOL/L (98-107) H Carbon Dioxide Level 21 MMOL/L (21-32) Anion Gap 12 mmol/L (5-15) Blood Urea Nitrogen 65 mg/dL (7-18) H Creatinine 5.2 MG/DL (0.55-1.30) H Estimat Glomerular Filtration Rate 12.8 mL/min (>60) Glucose Level 97 MG/DL (74-106) Calcium Level 8.7 MG/DL (8.5-10.1) Phosphorus Level 4.8 MG/DL (2.5-4.9) Magnesium Level 1.9 MG/DL (1.8-2.4) Total Bilirubin 0.4 MG/DL (0.2-1.0) Aspartate Amino Transf (AST/SGOT) 28 U/L (15-37) Alanine Aminotransferase (ALT/SGPT) 11 U/L (12-78) L Alkaline Phosphatase 53 U/L (46-116) Total Protein 6.2 G/DL (6.4-8.2) L Albumin 2.1 G/DL (3.4-5.0) L Globulin 4.1 g/dL Albumin/Globulin Ratio 0.5 (1.0-2.7) L Current Medications Medications (Trade) Dose Ordered Sig/Cyndi Route PRN Reason Start Time Stop Time Status Last Admin Dose Admin Acetaminophen (Tylenol) 650 mg Q4H PRN NG Fever 11/21/19 13:00 12/21/19 08:14 11/28/19 16:19 Amikacin Protocol (Amikacin pharmacy to dose) 1 ea DAILY PRN MISC Per rx protocol 11/29/19 15:00 12/29/19 14:59 Amlodipine Besylate (Norvasc) 5 mg BID NG 12/02/19 18:00 12/27/19 12:44 12/03/19 08:24 Chlorhexidine Gluconate (Corrie-Hex 2%) 1 applic DAILY@2000 TOPIC 11/27/19 20:00 02/25/20 19:59 12/02/19 21:07 Clonidine HCl (Catapres TTS-3) 1 patch QWEEK TDERMAL 11/30/19 13:00 02/28/20 12:59 11/30/19 12:39 Dextrose (Dextrose 50%) 25 ml Q30M PRN IV Hypoglycemia 11/21/19 08:15 02/19/20 08:14 Dextrose (Dextrose 50%) 50 ml Q30M PRN IV Hypoglycemia 11/21/19 08:15 02/19/20 08:14 Dextrose/Sodium Chloride 1,000 ml @ 25 mls/hr Q24H IV 12/02/19 11:59 01/01/20 11:58 12/03/19 11:53 Docusate Sodium (Colace) 100 mg THREE TIMES A DAY NG 11/21/19 13:00 12/21/19 12:59 12/03/19 12:04 Fentanyl Citrate 2500 mcg/Sodium Chloride 250 ml @ 0 mls/hr Q24H IV 11/29/19 16:00 12/06/19 15:59 12/03/19 10:40 Hydralazine HCl (Apresoline) 10 mg Q4H PRN IV BP over 160 sys 11/29/19 13:30 02/27/20 13:29 12/02/19 12:39 Meropenem 500 mg/ Sodium Chloride 55 ml @ 110 mls/hr Q12HR IVPB 11/25/19 14:00 12/05/19 23:59 12/03/19 08:23 Metoclopramide HCl (Reglan) 5 mg Q8H IVP 11/30/19 18:00 12/30/19 17:59 12/03/19 09:30 Metoprolol Tartrate (Lopressor) 50 mg Q12HR NG 11/28/19 21:00 02/19/20 20:59 12/03/19 08:24 Nitroglycerin (Ntg) 1 patch Q24H TDERMAL 11/22/19 11:00 12/22/19 10:59 12/03/19 10:35 Ondansetron HCl (Zofran) 4 mg Q6H PRN IVP Nausea & Vomiting 11/21/19 08:15 12/21/19 08:14 Pantoprazole 80 mg/Sodium Chloride 250 ml @ 25 mls/hr Q10H IV 11/29/19 11:30 12/29/19 11:29 12/03/19 05:45 Polyethylene Glycol (Miralax) 17 gm DAILYPRN PRN NG Constipation 11/21/19 13:00 12/21/19 08:14 Sucralfate (Carafate) 1 gm FOUR TIMES A DAY NG 11/29/19 13:30 02/27/20 13:29 12/03/19 12:04 Rich Albright MD Dec 03, 2019 16:18
--- NOTE | 2019-12-03 18:00 | NUR ---
NURSE NOTES: Pt repositioned, no distress noted. Pt still at RASS -2, fentanyl remains the same (50 mcg/hr).
--- NOTE | 2019-12-03 18:55 | Internal Med Progress Note ---
Subjective Date of Service: Dec 03, 2019 Physician Name MairlouAbisai Attending Physician Claude Garza MD Current Medications Medications (Trade) Dose Ordered Sig/Cyndi Route PRN Reason Start Time Stop Time Status Last Admin Dose Admin Acetaminophen (Tylenol) 650 mg Q4H PRN NG Fever 11/21/19 13:00 12/21/19 08:14 11/28/19 16:19 Amikacin Protocol (Amikacin pharmacy to dose) 1 ea DAILY PRN MISC Per rx protocol 11/29/19 15:00 12/29/19 14:59 Amlodipine Besylate (Norvasc) 5 mg BID NG 12/02/19 18:00 12/27/19 12:44 12/03/19 18:09 Chlorhexidine Gluconate (Corrie-Hex 2%) 1 applic DAILY@2000 TOPIC 11/27/19 20:00 02/25/20 19:59 12/02/19 21:07 Clonidine HCl (Catapres TTS-3) 1 patch QWEEK TDERMAL 11/30/19 13:00 02/28/20 12:59 11/30/19 12:39 Dextrose (Dextrose 50%) 25 ml Q30M PRN IV Hypoglycemia 11/21/19 08:15 02/19/20 08:14 Dextrose (Dextrose 50%) 50 ml Q30M PRN IV Hypoglycemia 11/21/19 08:15 02/19/20 08:14 Dextrose/Sodium Chloride 1,000 ml @ 25 mls/hr Q24H IV 12/02/19 11:59 01/01/20 11:58 12/03/19 11:53 Docusate Sodium (Colace) 100 mg THREE TIMES A DAY NG 11/21/19 13:00 12/21/19 12:59 12/03/19 18:08 Fentanyl Citrate 2500 mcg/Sodium Chloride 250 ml @ 0 mls/hr Q24H IV 11/29/19 16:00 12/06/19 15:59 12/03/19 10:40 Hydralazine HCl (Apresoline) 10 mg Q4H PRN IV BP over 160 sys 11/29/19 13:30 02/27/20 13:29 12/02/19 12:39 Meropenem 500 mg/ Sodium Chloride 55 ml @ 110 mls/hr Q12HR IVPB 11/25/19 14:00 12/05/19 23:59 12/03/19 08:23 Metoclopramide HCl (Reglan) 5 mg Q8H IVP 11/30/19 18:00 12/30/19 17:59 12/03/19 18:09 Metoprolol Tartrate (Lopressor) 50 mg Q12HR NG 11/28/19 21:00 02/19/20 20:59 12/03/19 08:24 Nitroglycerin (Ntg) 1 patch Q24H TDERMAL 11/22/19 11:00 12/22/19 10:59 12/03/19 10:35 Ondansetron HCl (Zofran) 4 mg Q6H PRN IVP Nausea & Vomiting 11/21/19 08:15 12/21/19 08:14 Pantoprazole 80 mg/Sodium Chloride 250 ml @ 25 mls/hr Q10H IV 11/29/19 11:30 12/29/19 11:29 12/03/19 16:20 Polyethylene Glycol (Miralax) 17 gm DAILYPRN PRN NG Constipation 11/21/19 13:00 12/21/19 08:14 Sucralfate (Carafate) 1 gm FOUR TIMES A DAY NG 11/29/19 13:30 02/27/20 13:29 12/03/19 18:09 Allergies: Coded Allergies: LISINOPRIL (Verified Allergy, Unknown, 11/21/19) SIMVASTATIN (Verified Allergy, Unknown, 11/21/19) TERAZOSIN (Verified Allergy, Unknown, 11/21/19) ROS Limited/Unobtainable: Yes Subjective 83 YO M admitted with respiratory failure. Now pneumonia, UTI and sepsis. Cover for Int Med-DR Garza. Extubated 12/03/19. ICU Objective Last Vital Signs Date Time Temp Pulse Resp B/P (MAP) Pulse Ox O2 Delivery O2 Flow Rate FiO2 12/03/19 18:09 87 146/86 12/03/19 17:00 27 98 12/03/19 17:00 Non-Rebreather 80 12/03/19 16:00 99.1 Laboratory Tests Test 12/03/19 05:15 White Blood Count 21.5 K/UL (4.8-10.8) H Red Blood Count 3.06 M/UL (4.70-6.10) L Hemoglobin 9.5 G/DL (14.2-18.0) L Hematocrit 28.0 % (42.0-52.0) L Mean Corpuscular Volume 92 FL (80-99) Mean Corpuscular Hemoglobin 31.0 PG (27.0-31.0) Mean Corpuscular Hemoglobin Concent 33.8 G/DL (32.0-36.0) Red Cell Distribution Width 15.2 % (11.6-14.8) H Platelet Count 269 K/UL (150-450) Mean Platelet Volume 4.6 FL (6.5-10.1) L Neutrophils (%) (Auto) % (45.0-75.0) Lymphocytes (%) (Auto) % (20.0-45.0) Monocytes (%) (Auto) % (1.0-10.0) Eosinophils (%) (Auto) % (0.0-3.0) Basophils (%) (Auto) % (0.0-2.0) Differential Total Cells Counted 100 Neutrophils % (Manual) 95 % (45-75) H Lymphocytes % (Manual) 3 % (20-45) L Monocytes % (Manual) 2 % (1-10) Eosinophils % (Manual) 0 % (0-3) Basophils % (Manual) 0 % (0-2) Band Neutrophils 0 % (0-8) Platelet Estimate Adequate Platelet Morphology Normal Anisocytosis 1+ Sodium Level 141 MMOL/L (136-145) Potassium Level 3.4 MMOL/L (3.5-5.1) L Chloride Level 108 MMOL/L (98-107) H Carbon Dioxide Level 21 MMOL/L (21-32) Anion Gap 12 mmol/L (5-15) Blood Urea Nitrogen 65 mg/dL (7-18) H Creatinine 5.2 MG/DL (0.55-1.30) H Estimat Glomerular Filtration Rate 12.8 mL/min (>60) Glucose Level 97 MG/DL (74-106) Calcium Level 8.7 MG/DL (8.5-10.1) Phosphorus Level 4.8 MG/DL (2.5-4.9) Magnesium Level 1.9 MG/DL (1.8-2.4) Total Bilirubin 0.4 MG/DL (0.2-1.0) Aspartate Amino Transf (AST/SGOT) 28 U/L (15-37) Alanine Aminotransferase (ALT/SGPT) 11 U/L (12-78) L Alkaline Phosphatase 53 U/L (46-116) Total Protein 6.2 G/DL (6.4-8.2) L Albumin 2.1 G/DL (3.4-5.0) L Globulin 4.1 g/dL Albumin/Globulin Ratio 0.5 (1.0-2.7) L Intake and Output 12/02/19 12/03/19 19:00 07:00 Intake Total 1405 ml 880 ml Output Total 715 ml 1680 ml Balance 690 ml -800 ml Free Water 30 ml IV Total 905 ml 765 ml Tube Feeding 120 ml 85 ml Blood Product 250 ml Other 130 ml Output Urine Total 715 ml 730 ml Stool Total 950 ml Objective PHYSICAL EXAMINATION: GENERAL: The patient is well-developed, well-nourished male, who is intubated and sedated in the intensive care unit. HEENT: Eyes, pupils are equal and responsive to light and accommodation. Extraocular movements are intact. NECK: Supple without lymphadenopathy. CHEST: Non rebreather mask; Bilateral expiratory air sounds, otherwise clear to auscultation without rales. CARDIOVASCULAR: Regular rhythm and rate. S1 and S2 normal without murmurs, rubs, or gallops. ABDOMEN: Soft, nontender, and nondistended. Positive bowel sounds. No evidence of hepatosplenomegaly. Currently, no rebound or guarding noted. EXTREMITIES: Negative for clubbing, cyanosis, or edema. RECTAL/GENITAL: Not performed. NEUROLOGIC: Cranial nerves II through XII are grossly intact without focal deficits. Motor strength is 5/5 bilaterally. Deep tendon reflexes are 2+ plantar. Assessment/Plan Assessment/Plan ASSESSMENT: This is an 83-year-old male. 1. Respiratory failure. 2. Congestive heart failure. 3. Atrial fibrillation. 4. Altered mental status. 5. Urinary tract infection. 6. Renal failure. 7. Hypertension. 8. Alzheimer's dementia. 9. Benign prostatic hypertrophy. 10. urinary tract infection-ESBL E. Coli and pseudamonas aeruginosa. 11. Sepsis-Staph Warneri 12. pneumonia=pseudamonas aeruginosa TREATMENT: 1. Congestive heart failure. A Cardiology consultation has been obtained with Dr. Vasu Zaidi. We will follow recommendations of Cardiology. The patient is currently receiving intravenous Lasix. 2. Respiratory failure. A Pulmonary consultation has been obtained with Dr. Susannah Hightower. Extubated 12/03/19. We will follow recommendations of Pulmonary. ABX=meropenem and vanco per ID=Dr Hicks 3. Atrial fibrillation as above. A Cardiology consultation has been obtained with Dr. Vasu Zaidi. 4. Renal failure. A Nephrology consultation has been obtained with Dr. Ellison. We will follow recommendations of Nephrology. 5. Hypertension. The patient is currently hypotensive in the intensive care unit. 6. Alzheimer's dementia. 7. Benign prostatic hypertrophy. 8. ABX = meropenem per ID Abisai Zamarripa MD Dec 03, 2019 18:55
--- NOTE | 2019-12-03 19:20 | NUR ---
NURSE NOTES: Dr Zaidi at bedside assessing pt.
--- NOTE | 2019-12-03 19:27 | NUR ---
RESPIRATORY NOTE: Received pt on AC 16, 550VT, 30%, no PEEP. Pt is intubated w/ ETT 7.5 @ 25cm lipline, secured by anchorfast. Pt asleep. B/S marlen rhonchi, sxn small to moderate amounts of thick/thin/frothy, pale-yellow to tse-yellow secretions. Vent plugged into red outlet, ambubag at bedside. Pt in no apparent distress at this time. Will continue to monitor pt.
--- NOTE | 2019-12-03 19:30 | NUR ---
HAND-OFF: Report given to SYED Panda.
--- NOTE | 2019-12-03 19:30 | Cardiology Progress Note ---
Assessment/Plan Assessment/Plan 1. Permanent versus paroxysmal episodes of atrial fibrillation. 2. Tachycardia. 3. Renal insufficiency. 4. Obstructive uropathy. 5. History of hypertension. 6. Prostatic hypertrophy. 7. History of latent tuberculosis. 8. History of heart failure. 9. History of hepatitis C infection. 10. Respiratory failure with respiratory acidosis, now on vent 11. melanotic stool 12 large gastric clot 13 Cardiopulmonary arrest 12/01-12/02 s/p champagne in ETT ? obstruction in ETT?? 14. 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 power project manager showed clemente code blue called at 0110,old ett removed and reintubated now seem ok with bp not suer mentally but agitated need sedative repeat ekg and trop in am chest tube in place Subjective ROS Limited/Unobtainable: Yes Subjective vent isolation Objective Last 24 Hour Vital Signs Date Time Temp Pulse Resp B/P (MAP) Pulse Ox O2 Delivery O2 Flow Rate FiO2 12/03/19 18:30 90 16 137/84 (101) 99 12/03/19 18:09 87 146/86 12/03/19 18:00 93 17 146/86 (106) 99 12/03/19 17:30 88 16 125/77 (93) 99 12/03/19 17:00 94 27 149/88 (108) 98 12/03/19 17:00 27 Non-Rebreather 80 12/03/19 16:50 94 16 30 12/03/19 16:30 93 17 151/83 (105) 98 12/03/19 16:00 80 12/03/19 16:00 99 12/03/19 16:00 18 Mechanical Ventilator 80 12/03/19 16:00 Mechanical Ventilator Mechanical Ventilator Mechanical Ventilator 12/03/19 16:00 99.1 93 19 155/87 (109) 97 12/03/19 15:30 97 18 138/88 (105) 97 12/03/19 15:15 97 16 30 12/03/19 15:00 21 Mechanical Ventilator 80 12/03/19 15:00 95 21 151/95 (113) 97 12/03/19 14:30 97 20 148/87 (107) 95 12/03/19 14:00 21 Mechanical Ventilator 80 12/03/19 14:00 98 21 142/93 (109) 95 12/03/19 13:30 86 16 122/73 (89) 98 12/03/19 13:20 85 16 30 12/03/19 13:00 16 Mechanical Ventilator 80 12/03/19 13:00 100 16 136/82 (100) 95 12/03/19 12:30 93 20 161/96 (117) 97 12/03/19 12:00 Mechanical Ventilator Mechanical Ventilator Mechanical Ventilator 12/03/19 12:00 18 Mechanical Ventilator 80 12/03/19 12:00 99.4 99 18 150/88 (108) 98 12/03/19 12:00 94 12/03/19 12:00 80 12/03/19 11:30 97 17 157/88 (111) 98 12/03/19 11:25 90 16 30 12/03/19 11:00 15 Mechanical Ventilator 80 12/03/19 11:00 94 15 145/97 (113) 99 12/03/19 10:40 23 Mechanical Ventilator 80 12/03/19 10:39 16 Mechanical Ventilator 80 12/03/19 10:35 155/99 12/03/19 10:30 95 21 155/99 (117) 100 12/03/19 10:00 83 16 136/93 (107) 100 12/03/19 10:00 16 Mechanical Ventilator 80 12/03/19 09:30 80 16 138/89 (105) 100 12/03/19 09:20 81 16 30 12/03/19 09:00 16 Mechanical Ventilator 80 12/03/19 09:00 83 16 146/99 (115) 100 12/03/19 08:30 88 16 159/94 (115) 100 12/03/19 08:24 90 146/94 12/03/19 08:24 90 146/94 12/03/19 08:00 82 12/03/19 08:00 15 Mechanical Ventilator 80 12/03/19 08:00 Mechanical Ventilator Mechanical Ventilator Mechanical Ventilator 12/03/19 08:00 80 12/03/19 08:00 98.8 80 15 146/94 (111) 100 12/03/19 07:20 80 16 30 12/03/19 07:00 79 16 150/93 (112) 100 12/03/19 07:00 16 Mechanical Ventilator 80 12/03/19 06:30 74 16 143/89 (107) 100 12/03/19 06:30 82 20 12/03/19 06:00 98.5 78 16 136/90 (105) 100 12/03/19 05:30 76 16 150/94 (112) 100 12/03/19 05:03 74 18 30 12/03/19 05:00 73 16 148/91 (110) 98 12/03/19 05:00 20 Mechanical Ventilator 80 12/03/19 04:30 71 16 133/88 (103) 98 12/03/19 04:00 Mechanical Ventilator Mechanical Ventilator Mechanical Ventilator Mechanical Ventilator 12/03/19 04:00 82 12/03/19 04:00 80 12/03/19 04:00 16 Mechanical Ventilator 80 12/03/19 04:00 76 16 118/84 (95) 98 12/03/19 03:30 74 16 116/67 (83) 100 12/03/19 03:00 16 Mechanical Ventilator 80 12/03/19 03:00 81 18 107/68 (81) 100 12/03/19 02:50 70 16 30 12/03/19 02:30 102 16 62/35 (44) 84 12/03/19 02:00 16 Mechanical Ventilator 30 12/03/19 02:00 124 19 67/25 (39) 86 12/03/19 01:30 159 18 124/77 (93) 92 12/03/19 01:00 40 Mechanical Ventilator 30 12/03/19 01:00 78 17 142/87 (105) 97 12/03/19 01:00 99 16 139/74 (95) 83 12/03/19 00:45 99 20 90 12/03/19 00:45 80 18 30 12/03/19 00:30 78 17 142/87 (105) 97 12/03/19 00:30 78 17 142/87 (105) 97 12/03/19 00:15 81 16 97 12/03/19 00:00 98.4 79 29 153/77 (102) 97 12/03/19 00:00 84 12/03/19 00:00 Mechanical Ventilator Mechanical Ventilator Mechanical Ventilator Mechanical Ventilator 12/03/19 00:00 79 29 153/77 (102) 97 12/03/19 00:00 38 Mechanical Ventilator 30 12/03/19 00:00 30 12/02/19 23:30 77 16 145/81 (102) 97 12/02/19 23:20 20 Mechanical Ventilator 30 12/02/19 23:00 78 41 147/73 (97) 97 12/02/19 22:45 79 17 30 12/02/19 22:30 83 48 141/65 (90) 96 12/02/19 22:00 83 41 135/69 (91) 97 12/02/19 22:00 30 Mechanical Ventilator 30 12/02/19 21:30 79 55 134/76 (95) 98 12/02/19 21:15 81 16 30 12/02/19 21:09 80 130/75 12/02/19 21:00 28 Mechanical Ventilator 30 12/02/19 21:00 90 57 130/75 (93) 97 12/02/19 20:30 80 18 123/74 (90) 96 12/02/19 20:00 98.6 76 44 126/66 (86) 97 12/02/19 20:00 24 Mechanical Ventilator 30 12/02/19 20:00 30 12/02/19 20:00 75 12/02/19 20:00 Mechanical Ventilator Mechanical Ventilator Mechanical Ventilator Mechanical Ventilator 12/02/19 19:30 82 49 128/62 (84) 98 General Appearance: no apparent distress, on vent, patient on isolation Cardiovascular: irregularly irregular Respiratory/Chest: rhonchi - bilaterally Abdomen: normal bowel sounds, non tender, soft Extremities: no swelling Intake and Output 12/02/19 12/03/19 19:00 07:00 Intake Total 1405 ml 880 ml Output Total 715 ml 1680 ml Balance 690 ml -800 ml Free Water 30 ml IV Total 905 ml 765 ml Tube Feeding 120 ml 85 ml Blood Product 250 ml Other 130 ml Output Urine Total 715 ml 730 ml Stool Total 950 ml Laboratory Tests Test 12/03/19 05:15 White Blood Count 21.5 K/UL (4.8-10.8) H Red Blood Count 3.06 M/UL (4.70-6.10) L Hemoglobin 9.5 G/DL (14.2-18.0) L Hematocrit 28.0 % (42.0-52.0) L Mean Corpuscular Volume 92 FL (80-99) Mean Corpuscular Hemoglobin 31.0 PG (27.0-31.0) Mean Corpuscular Hemoglobin Concent 33.8 G/DL (32.0-36.0) Red Cell Distribution Width 15.2 % (11.6-14.8) H Platelet Count 269 K/UL (150-450) Mean Platelet Volume 4.6 FL (6.5-10.1) L Neutrophils (%) (Auto) % (45.0-75.0) Lymphocytes (%) (Auto) % (20.0-45.0) Monocytes (%) (Auto) % (1.0-10.0) Eosinophils (%) (Auto) % (0.0-3.0) Basophils (%) (Auto) % (0.0-2.0) Differential Total Cells Counted 100 Neutrophils % (Manual) 95 % (45-75) H Lymphocytes % (Manual) 3 % (20-45) L Monocytes % (Manual) 2 % (1-10) Eosinophils % (Manual) 0 % (0-3) Basophils % (Manual) 0 % (0-2) Band Neutrophils 0 % (0-8) Platelet Estimate Adequate Platelet Morphology Normal Anisocytosis 1+ Sodium Level 141 MMOL/L (136-145) Potassium Level 3.4 MMOL/L (3.5-5.1) L Chloride Level 108 MMOL/L (98-107) H Carbon Dioxide Level 21 MMOL/L (21-32) Anion Gap 12 mmol/L (5-15) Blood Urea Nitrogen 65 mg/dL (7-18) H Creatinine 5.2 MG/DL (0.55-1.30) H Estimat Glomerular Filtration Rate 12.8 mL/min (>60) Glucose Level 97 MG/DL (74-106) Calcium Level 8.7 MG/DL (8.5-10.1) Phosphorus Level 4.8 MG/DL (2.5-4.9) Magnesium Level 1.9 MG/DL (1.8-2.4) Total Bilirubin 0.4 MG/DL (0.2-1.0) Aspartate Amino Transf (AST/SGOT) 28 U/L (15-37) Alanine Aminotransferase (ALT/SGPT) 11 U/L (12-78) L Alkaline Phosphatase 53 U/L (46-116) Total Protein 6.2 G/DL (6.4-8.2) L Albumin 2.1 G/DL (3.4-5.0) L Globulin 4.1 g/dL Albumin/Globulin Ratio 0.5 (1.0-2.7) L Vasu Zaidi MD Dec 03, 2019 19:30
--- NOTE | 2019-12-03 20:00 | NUR ---
NURSE NOTES: SBAR from Nuris LYNCH. Pt noted with RASS -2, opens eyes for 5-8sec when called by name, unable to follow commands. Pupils are equal and round 3mm bilaterally with sluggish light rxn. Bilat radial pulses noted. Pt noted in Afib to child monitor. Pt is intubated with 7.5 ETT noted 23 cm at left lip corner, with the following settings: AC 16 TV 550 FiO2 40% without Peep. Bilat upper lung lobes noted with rhonchi and bilat lower lungs noted diminished. Pt has a left nares NGT and receiving nepro at 30ml/hr. GT stoma site noted without redness, drainage, or swelling. Abd is slightly firm, round, and non-tender with active bowel sounds to all quadrants. Pt has a f/c draining yellow urine. Skin alterations noted. low air loss mattress. Pt has a THAD double lumen PICC running protonix drip at 25 cc/hr, D5 1/2 NS at 25 cc/hr and fentanyl drip running 50 mcg/hr. Bilat soft wrist restraints noted, bilat radial pulses palpable and wrist skin intact without redness. SCDs on bilat lower extremitied. Bed is in lowest position, alarm on, side rails up x 2, call light within reach, SCDs on bilat lower extremities, Pt also has a chest tube noted in left lateral chest with dry and intact dressing draining serosanguineous drainage at 20 cm H20 on continuos suction, no air leak present.pt provided education on fall precaution. Will continue to monitor.
[2019-12-03] MEDS: LORazepam Inj 2mg/ml 1ml IV PRN (21:13)
[2019-12-03] MEDS: Dyna-Hex 2% Top Sol 2oz TOPIC SCH (21:13)
--- NOTE | 2019-12-03 22:00 | NUR ---
NURSE NOTES: Patient repositioned and oral care performed. Patient lavaged and suctioned. Thick ETT secretions noted with small mucous plugs. Very minimal feeds noted. Patient given Ativan 1mg IVP for sedation. Will continue to monitor .
[2019-12-04] VITALS (54 sets, daily range): BP systolic 133–194; BP diastolic 57–120
--- NOTE | 2019-12-04 | NUR ---
NURSE NOTES: Patient repositioned and suctioned. Very thick tenacious secretions noted. Patient was lavaged and suctioned. Oral care performed and made comfortable. VSS. Minimal feed residual of around 40ml.
[2019-12-04] MEDS: Pantoprazole 80 MG in NS 250 ML IV SCH (01:43)
[2019-12-04] MEDS: Metoclopramide 10mg/2ml Inj IVP SCH ×3 (01:46→18:19)
--- NOTE | 2019-12-04 02:00 | NUR ---
NURSE NOTES: Patient repositioned. Patient RASS is -2, opens eyes to verbal command for about 5-7 seconds. VSS, no acute distress at this time. Will continue to monitor. No BM at this time.
--- NOTE | 2019-12-04 04:00 | NUR ---
NURSE NOTES: Patient had black tarry BM. Patient cleaned and repositioned and suctioned. Patient RASS is -2, opens eyes to verbal command for about 5-7 seconds. Thick tenacious secretions. Patient VSS, afebrile.
[2019-12-04 05:35] LABS: HEMATOCRIT 30.4 % (42.0-52.0); HEMOGLOBIN 10.3 G/DL (14.2-18.0); MEAN CORPUSCULAR VOLUME 92 FL (80-99); PLATELET COUNT 311 K/UL (150-450); RED BLOOD COUNT 3.31 M/UL (4.70-6.10); RED CELL DISTRIBUTION WIDTH 15.9 % (11.6-14.8)
[2019-12-04 05:45] LABS: ANION GAP 14 mmol/L (5-15); BLOOD UREA NITROGEN 64 mg/dL (7-18); CALCIUM 8.9 MG/DL (8.5-10.1); CARBON DIOXIDE 21 MMOL/L (21-32); CHLORIDE 110 MMOL/L (98-107); CREATININE 5.2 MG/DL (0.55-1.30); POTASSIUM 3.3 MMOL/L (3.5-5.1); SODIUM 145 MMOL/L (136-145)
[2019-12-04 05:53] LABS: WHITE BLOOD COUNT 28.5 K/UL (4.8-10.8)
--- NOTE | 2019-12-04 06:08 | NUR ---
NURSE NOTES: Repositioned and suctioned. Patient RASS is -2, opens eyes to verbal command for about 5-7 seconds. Thick tenacious secretions. Patient VSS, afebrile. 450ml output from chest tube. Chest tube remains patent, dry and intact.
--- NOTE | 2019-12-04 07:19 | NUR ---
RESPIRATORY NOTE: received pt orally intubated with ETT 7.5, placed 25cm at the lip. no signs of resp distress at this time on current vent settings. ambu bag at bedside with vent plugged into the red outlet. will attempt to wean later this morning and cont to monitor throughout the day.
--- NOTE | 2019-12-04 07:30 | NUR ---
NURSE NOTES: Pt received from SYED Panda. Pt noted with RASS -2, opens eyes for 7 sec when called by name, unable to follow commands. Pupils are equal and round 2mm bilaterally with sluggish light rxn. Bilat hand noted with 3+ pitting edema. Bilat radial pulses 3+ and dorsalis pedis 2+. Pt noted in Afib to board mixer tender. Pt is intubated with 7.5 ETT noted 23 cm at left lip corner, with the following settings: AC 16 TV 550 FiO2 40% without Peep. Bilat upper lung lobes noted with rhonchi and bilat lower lungs noted diminished. Pt has a left nares NGT running Nepro at 40 cc/hr with 5 cc gastric residuals noted. Abd is slightly firm, round, and non-tender with active bowel sounds to all quadrants. Pt has a f/c draining yellow. Skin alterations noted- pt on MAISHA mattress. Pt has a THAD double lumen PICC running protonix drip at 25 cc/hr, D5 1/2 NS at 25 cc/hr and fentanyl drip running 50 mcg/hr. Bilat soft wrist restraints noted, bilat radial pulses palpable and wrist skin intact without redness. SCDs on bilat lower extremities. Pt has a chest tube noted in left lateral chest with dry and intact dressing draining serosanguineous drainage at 20 cm H20 on continuos suction, no air leak present, clamp at bedside. Bed is in lowest position, alarm on, side rails up x 3, call light within reach. Will continue to monitor.
--- NOTE | 2019-12-04 08:49 | NUR ---
NURSE NOTES: Left message for Dr Hicks with today's WBC result of 28.5. Awaiting call back.
--- NOTE | 2019-12-04 08:56 | Infectious Diseases Prog Note ---
Assessment/Plan Assessment/Plan ASSESSMENT: This is an 83-year-old male. Afebrile Leukocytosis ( 2nd to GI bleed, arrest, pneumothorax) Possible PNA superimposed on CHF exacerbation - 12/02 CXR: Large left pneumothorax. Suspected underlying pulmonary edema. Superimposed infiltrate may be present the right perihilar region. - Respiratory failure: m/l 2/2 CHF, elevated BNP) - Sp Cx PSA Probable UTI - UCX : PSA and ESBL E Coli GPC Bacteremia - BCx 11/21/19 Staph warneri 2/2 sets - BCx 11/22/19 - Neg - 2D Echo : No Veg SP EGD Congestive heart failure. Atrial fibrillation. Altered mental status. Urinary tract infection. Renal failure. Hypertension. Alzheimer's dementia. BPH P: Cont pt on IV Merrem # 11/14 , cont Amikacin # 6/ 7 ( Urine coverage ). extend therapy for now given decompensation and leukocytosis pending cultures. repeat cx -11/29 SP IV Vancomycin #9 -11/23 Sp Rocephin # 4 Monitor CBC, CMP Monitor CXR Rsp support ICU care chest tube care DW RN Subjective Allergies: Coded Allergies: LISINOPRIL (Verified Allergy, Unknown, 11/21/19) SIMVASTATIN (Verified Allergy, Unknown, 11/21/19) TERAZOSIN (Verified Allergy, Unknown, 11/21/19) Subjective Afebrile. Leukocytosis worsening but pt had an eventful day yesterday with code , pneumothorax and chest tube placement. FiO2 improving no pressors Objective Vital Signs Last 24 Hour Vital Signs Date Time Temp Pulse Resp B/P (MAP) Pulse Ox O2 Delivery O2 Flow Rate FiO2 12/04/19 08:43 122 23 40 12/04/19 08:37 12/04/19 08:00 40 12/04/19 07:16 89 16 40 12/04/19 07:00 91 25 167/103 (124) 100 12/04/19 07:00 22 Mechanical Ventilator 40 12/04/19 06:37 18 20 12/04/19 06:00 18 Mechanical Ventilator 40 12/04/19 06:00 96 19 171/100 (123) 98 12/04/19 05:30 88 22 156/90 (112) 97 12/04/19 05:05 97 19 50 12/04/19 05:00 90 19 163/100 (121) 99 12/04/19 05:00 22 Mechanical Ventilator 40 12/04/19 04:30 94 18 161/88 (112) 99 12/04/19 04:25 95 20 161/95 (117) 98 12/04/19 04:00 98 12/04/19 04:00 Mechanical Ventilator Mechanical Ventilator Mechanical Ventilator 12/04/19 04:00 50 12/04/19 04:00 26 Mechanical Ventilator 40 12/04/19 04:00 99.5 95 20 171/96 (121) 98 12/04/19 03:30 109 22 180/91 (120) 100 12/04/19 03:10 120 27 50 12/04/19 03:00 107 24 171/95 (120) 100 12/04/19 03:00 26 Mechanical Ventilator 40 12/04/19 02:30 123 20 168/114 (132) 97 12/04/19 02:00 22 Mechanical Ventilator 50 12/04/19 02:00 92 19 150/90 (110) 98 12/04/19 01:30 92 19 152/93 (112) 98 12/04/19 01:07 94 17 60 12/04/19 01:00 87 18 149/84 (105) 95 12/04/19 01:00 24 Mechanical Ventilator 50 12/04/19 00:30 91 21 144/102 (116) 95 12/04/19 00:00 98.9 88 20 144/83 (103) 95 12/04/19 00:00 50 12/04/19 00:00 85 12/04/19 00:00 26 Mechanical Ventilator 50 12/04/19 00:00 Mechanical Ventilator Mechanical Ventilator Mechanical Ventilator 12/03/19 23:30 87 21 147/85 (105) 95 12/03/19 23:02 89 16 60 12/03/19 23:00 84 20 139/86 (103) 94 12/03/19 23:00 22 Mechanical Ventilator 60 12/03/19 22:00 82 19 134/87 (103) 94 12/03/19 22:00 16 Mechanical Ventilator 60 12/03/19 21:30 93 17 136/77 (96) 95 12/03/19 21:13 98 151/89 12/03/19 21:12 102 23 60 12/03/19 21:00 89 20 133/79 (97) 91 12/03/19 21:00 16 Mechanical Ventilator 40 12/03/19 20:30 91 21 137/72 (93) 90 12/03/19 20:00 60 12/03/19 20:00 Mechanical Ventilator Mechanical Ventilator Mechanical Ventilator 12/03/19 20:00 16 Mechanical Ventilator 40 12/03/19 20:00 99.0 89 21 136/79 (98) 86 12/03/19 20:00 88 12/03/19 19:30 98 20 151/89 (109) 97 12/03/19 19:25 88 17 30 12/03/19 19:00 92 18 141/83 (102) 98 12/03/19 19:00 18 Mechanical Ventilator 80 12/03/19 18:30 90 16 137/84 (101) 99 12/03/19 18:09 87 146/86 12/03/19 18:00 93 17 146/86 (106) 99 12/03/19 18:00 17 Mechanical Ventilator 80 12/03/19 17:30 88 16 125/77 (93) 99 12/03/19 17:00 94 27 149/88 (108) 98 12/03/19 17:00 27 Non-Rebreather 80 12/03/19 16:50 94 16 30 12/03/19 16:30 93 17 151/83 (105) 98 12/03/19 16:00 80 12/03/19 16:00 99 12/03/19 16:00 18 Mechanical Ventilator 80 12/03/19 16:00 Mechanical Ventilator Mechanical Ventilator Mechanical Ventilator 12/03/19 16:00 99.1 93 19 155/87 (109) 97 12/03/19 15:30 97 18 138/88 (105) 97 12/03/19 15:15 97 16 30 12/03/19 15:00 21 Mechanical Ventilator 80 12/03/19 15:00 95 21 151/95 (113) 97 12/03/19 14:30 97 20 148/87 (107) 95 12/03/19 14:00 21 Mechanical Ventilator 80 12/03/19 14:00 98 21 142/93 (109) 95 12/03/19 13:30 86 16 122/73 (89) 98 12/03/19 13:20 85 16 30 12/03/19 13:00 16 Mechanical Ventilator 80 12/03/19 13:00 100 16 136/82 (100) 95 12/03/19 12:30 93 20 161/96 (117) 97 12/03/19 12:00 Mechanical Ventilator Mechanical Ventilator Mechanical Ventilator 12/03/19 12:00 18 Mechanical Ventilator 80 12/03/19 12:00 99.4 99 18 150/88 (108) 98 12/03/19 12:00 94 12/03/19 12:00 80 12/03/19 11:30 97 17 157/88 (111) 98 12/03/19 11:25 90 16 30 12/03/19 11:00 15 Mechanical Ventilator 80 12/03/19 11:00 94 15 145/97 (113) 99 12/03/19 10:40 23 Mechanical Ventilator 80 12/03/19 10:39 16 Mechanical Ventilator 80 12/03/19 10:35 155/99 12/03/19 10:30 95 21 155/99 (117) 100 12/03/19 10:00 83 16 136/93 (107) 100 12/03/19 10:00 16 Mechanical Ventilator 80 12/03/19 09:30 80 16 138/89 (105) 100 12/03/19 09:20 81 16 30 12/03/19 09:00 16 Mechanical Ventilator 80 12/03/19 09:00 83 16 146/99 (115) 100 Height (Feet): 5 Height (Inches): 10.00 Weight (Pounds): 205 Objective Gen: NAD CV: RRR. no rubs or gallop. Pulm: RRR. equal chest rise. Chest tube. Abd: soft. nondistended Neuro: sedated Laboratory Tests Test 12/04/19 04:00 White Blood Count 28.5 K/UL (4.8-10.8) *H Red Blood Count 3.31 M/UL (4.70-6.10) L Hemoglobin 10.3 G/DL (14.2-18.0) L Hematocrit 30.4 % (42.0-52.0) L Mean Corpuscular Volume 92 FL (80-99) Mean Corpuscular Hemoglobin 31.2 PG (27.0-31.0) H Mean Corpuscular Hemoglobin Concent 34.0 G/DL (32.0-36.0) Red Cell Distribution Width 15.9 % (11.6-14.8) H Platelet Count 311 K/UL (150-450) Mean Platelet Volume 4.6 FL (6.5-10.1) L Neutrophils (%) (Auto) % (45.0-75.0) Lymphocytes (%) (Auto) % (20.0-45.0) Monocytes (%) (Auto) % (1.0-10.0) Eosinophils (%) (Auto) % (0.0-3.0) Basophils (%) (Auto) % (0.0-2.0) Differential Total Cells Counted 100 Neutrophils % (Manual) 90 % (45-75) H Lymphocytes % (Manual) 2 % (20-45) L Monocytes % (Manual) 8 % (1-10) Eosinophils % (Manual) 0 % (0-3) Basophils % (Manual) 0 % (0-2) Band Neutrophils 0 % (0-8) Platelet Estimate Adequate Platelet Morphology Normal Hypochromasia 1+ Anisocytosis 1+ Sodium Level 145 MMOL/L (136-145) Potassium Level 3.3 MMOL/L (3.5-5.1) L Chloride Level 110 MMOL/L (98-107) H Carbon Dioxide Level 21 MMOL/L (21-32) Anion Gap 14 mmol/L (5-15) Blood Urea Nitrogen 64 mg/dL (7-18) H Creatinine 5.2 MG/DL (0.55-1.30) H Estimat Glomerular Filtration Rate 12.8 mL/min (>60) Glucose Level 128 MG/DL (74-106) H Calcium Level 8.9 MG/DL (8.5-10.1) Current Medications Medications (Trade) Dose Ordered Sig/Cyndi Route PRN Reason Start Time Stop Time Status Last Admin Dose Admin Acetaminophen (Tylenol) 650 mg Q4H PRN NG Fever 11/21/19 13:00 12/21/19 08:14 11/28/19 16:19 Amikacin Protocol (Amikacin pharmacy to dose) 1 ea DAILY PRN MISC Per rx protocol 11/29/19 15:00 12/29/19 14:59 Amlodipine Besylate (Norvasc) 5 mg BID NG 12/02/19 18:00 12/27/19 12:44 12/03/19 18:09 Chlorhexidine Gluconate (Corrie-Hex 2%) 1 applic DAILY@2000 TOPIC 11/27/19 20:00 02/25/20 19:59 12/03/19 21:13 Clonidine HCl (Catapres TTS-3) 1 patch QWEEK TDERMAL 11/30/19 13:00 02/28/20 12:59 11/30/19 12:39 Dextrose (Dextrose 50%) 25 ml Q30M PRN IV Hypoglycemia 11/21/19 08:15 02/19/20 08:14 Dextrose (Dextrose 50%) 50 ml Q30M PRN IV Hypoglycemia 11/21/19 08:15 02/19/20 08:14 Dextrose/Sodium Chloride 1,000 ml @ 25 mls/hr Q24H IV 12/02/19 11:59 01/01/20 11:58 12/03/19 11:53 Docusate Sodium (Colace) 100 mg THREE TIMES A DAY NG 11/21/19 13:00 12/21/19 12:59 12/03/19 18:08 Fentanyl Citrate 2500 mcg/Sodium Chloride 250 ml @ 0 mls/hr Q24H IV 11/29/19 16:00 12/06/19 15:59 12/03/19 10:40 Hydralazine HCl (Apresoline) 10 mg Q4H PRN IV BP over 160 sys 11/29/19 13:30 02/27/20 13:29 12/02/19 12:39 Lorazepam (Ativan 2mg/ml 1ml) 1 mg Q6HR PRN IV Agitation 12/03/19 20:00 12/10/19 19:59 12/03/19 21:13 Meropenem 500 mg/ Sodium Chloride 55 ml @ 110 mls/hr Q12HR IVPB 11/25/19 14:00 12/04/19 23:59 12/03/19 21:14 Metoclopramide HCl (Reglan) 5 mg Q8H IVP 11/30/19 18:00 12/30/19 17:59 12/04/19 01:46 Metoprolol Tartrate (Lopressor) 50 mg Q12HR NG 11/28/19 21:00 02/19/20 20:59 12/03/19 21:13 Nitroglycerin (Ntg) 1 patch Q24H TDERMAL 11/22/19 11:00 12/22/19 10:59 12/03/19 10:35 Ondansetron HCl (Zofran) 4 mg Q6H PRN IVP Nausea & Vomiting 11/21/19 08:15 12/21/19 08:14 Pantoprazole 80 mg/Sodium Chloride 250 ml @ 25 mls/hr Q10H IV 11/29/19 11:30 12/29/19 11:29 12/04/19 01:43 Polyethylene Glycol (Miralax) 17 gm DAILYPRN PRN NG Constipation 11/21/19 13:00 12/21/19 08:14 Sucralfate (Carafate) 1 gm FOUR TIMES A DAY NG 11/29/19 13:30 02/27/20 13:29 12/03/19 21:13 Rich Albright MD Dec 04, 2019 08:56
[2019-12-04] MEDS: Docusate 100mg/10ml Liq NG SCH ×3 (08:58→18:19)
[2019-12-04] MEDS: Sucralfate 1gm tab NG SCH ×4 (08:58→21:24)
[2019-12-04] MEDS: Metoprolol Tartrate 50mg tab NG SCH ×2 (09:06→21:24)
--- NOTE | 2019-12-04 09:10 | NUR ---
NURSE NOTES: Received call back from Dr. Hicks stating he will follow up with orders.
[2019-12-04] MEDS: LORazepam Inj 2mg/ml 1ml IV PRN ×2 (09:14→18:39)
--- NOTE | 2019-12-04 09:14 | NUR ---
RD ASSESSMENT & RECOMMENDATIONS SEE CARE ACTIVITY FOR COMPLETE ASSESSMENT DAILY ESTIMATED NEEDS: Needs based on Critical care, wound, ARF/ 80kg abw 22-28 kcals/kg [id number] total kcals 0.8-1.0 (increase w/ renal improvement) g protein/kg 64-80 g total protein Fluids per MD NUTRITION DIAGNOSIS: * Swallowing difficulty R/T respiratory status as evidenced by pt orally intubated, OGT feedings held d/t GIB. * Altered nutrition related lab values R/T ARF on CKD as evidenced by elev creat (6.4 -> 4.8-> 5.2), elev K (6.1*-> 3.3), elev BNP (40738). CURRENT TF:Nepro @ 40ml/hr x 24 hrs PO DIET RECOMMENDATIONS: ARMAMENT REPAIRER eval post extubation ENTERAL NUTRITION RECOMMENDATIONS: Nepro @ 40ml/hr x 24 hrs to provide 960ml, 1728kcal, 78g prot, 698ml free water * Maintain current TF -> rec to maintain NEPRO at this time given hyperkalemia w/ creat 6.4 upon adm (now creat 5.2) * HOB over 30 degrees/ water flush per MD * TF @ goal will meet 98% est kcal and 100% est prot needs ADDITIONAL RECOMMENDATIONS: * Per SNF: HT=71" [id number] * Monitor renal fxn and lytes: creat 6.4, K 6.1 upon adm -> monitor continued need for renal TF formula of Nepro * Wound healing: add Nephrovite x 1 add Petros BID as tolerated
[2019-12-04] MEDS: Meropenem 500 MG in NS 55 ML IVPB SCH ×2 (09:24→21:24)
[2019-12-04] MEDS: fentaNYL Citrate 2500mcg in NS 250ml IV SCH (09:25)
--- NOTE | 2019-12-04 10:07 | Pulmonolgy Critical Care Note ---
Critical Care - Asmt/Plan Problems: (1) Acute hypercapnic respiratory failure (2) Paroxysmal A-fib (3) Anemia, chronic renal failure (4) Acute on chronic renal insufficiency (5) Chronic hepatitis (6) Moderate pulmonary arterial systolic hypertension (7) Left ventricular ejection fraction greater than or equal to 40 percent (8) History of hypertension (9) Alzheimer's dementia (10) BPH (benign prostatic hyperplasia) Respiratory: monitor respiratory rate, adjust FIO2, CXR Cardiac: continue to monitor HR/BP Renal: F/U I&O, check electrolytes Infectious Disease: check cultures Gastrointestinal: continue feedings/current rate Endocrine: monitor blood sugar Hematologic: transfuse if hgb<8.5 Neurologic: PRN Morphine, keep patient comfortable Affect: PRN ativan Prophylaxis: Protonix Disposition: keep in ICU Notes Reviewed: flavor extractor, renal Discussed with: nurses, consultants, sample case porterhourly manager - Objective Last 24 Hour Vital Signs Date Time Temp Pulse Resp B/P (MAP) Pulse Ox O2 Delivery O2 Flow Rate FiO2 12/04/19 09:25 24 Mechanical Ventilator 40 12/04/19 09:06 88 176/107 12/04/19 08:58 97 178/101 12/04/19 08:58 178/101 12/04/19 08:43 122 23 40 12/04/19 08:37 12/04/19 08:00 40 12/04/19 07:16 89 16 40 12/04/19 07:00 91 25 167/103 (124) 100 12/04/19 07:00 22 Mechanical Ventilator 40 12/04/19 06:37 18 20 12/04/19 06:00 18 Mechanical Ventilator 40 12/04/19 06:00 96 19 171/100 (123) 98 12/04/19 05:30 88 22 156/90 (112) 97 12/04/19 05:05 97 19 50 12/04/19 05:00 90 19 163/100 (121) 99 12/04/19 05:00 22 Mechanical Ventilator 40 12/04/19 04:30 94 18 161/88 (112) 99 12/04/19 04:25 95 20 161/95 (117) 98 12/04/19 04:00 98 12/04/19 04:00 Mechanical Ventilator Mechanical Ventilator Mechanical Ventilator 12/04/19 04:00 50 12/04/19 04:00 26 Mechanical Ventilator 40 12/04/19 04:00 99.5 95 20 171/96 (121) 98 12/04/19 03:30 109 22 180/91 (120) 100 12/04/19 03:10 120 27 50 12/04/19 03:00 107 24 171/95 (120) 100 12/04/19 03:00 26 Mechanical Ventilator 40 12/04/19 02:30 123 20 168/114 (132) 97 12/04/19 02:00 22 Mechanical Ventilator 50 12/04/19 02:00 92 19 150/90 (110) 98 12/04/19 01:30 92 19 152/93 (112) 98 12/04/19 01:07 94 17 60 12/04/19 01:00 87 18 149/84 (105) 95 12/04/19 01:00 24 Mechanical Ventilator 50 12/04/19 00:30 91 21 144/102 (116) 95 12/04/19 00:00 98.9 88 20 144/83 (103) 95 12/04/19 00:00 50 12/04/19 00:00 85 12/04/19 00:00 26 Mechanical Ventilator 50 12/04/19 00:00 Mechanical Ventilator Mechanical Ventilator Mechanical Ventilator 12/03/19 23:30 87 21 147/85 (105) 95 12/03/19 23:02 89 16 60 12/03/19 23:00 84 20 139/86 (103) 94 12/03/19 23:00 22 Mechanical Ventilator 60 12/03/19 22:00 82 19 134/87 (103) 94 12/03/19 22:00 16 Mechanical Ventilator 60 12/03/19 21:30 93 17 136/77 (96) 95 12/03/19 21:13 98 151/89 12/03/19 21:12 102 23 60 12/03/19 21:00 89 20 133/79 (97) 91 12/03/19 21:00 16 Mechanical Ventilator 40 12/03/19 20:30 91 21 137/72 (93) 90 12/03/19 20:00 60 12/03/19 20:00 Mechanical Ventilator Mechanical Ventilator Mechanical Ventilator 12/03/19 20:00 16 Mechanical Ventilator 40 12/03/19 20:00 99.0 89 21 136/79 (98) 86 12/03/19 20:00 88 12/03/19 19:30 98 20 151/89 (109) 97 12/03/19 19:25 88 17 30 12/03/19 19:00 92 18 141/83 (102) 98 12/03/19 19:00 18 Mechanical Ventilator 80 12/03/19 18:30 90 16 137/84 (101) 99 12/03/19 18:09 87 146/86 12/03/19 18:00 93 17 146/86 (106) 99 12/03/19 18:00 17 Mechanical Ventilator 80 12/03/19 17:30 88 16 125/77 (93) 99 12/03/19 17:00 94 27 149/88 (108) 98 12/03/19 17:00 27 Non-Rebreather 80 12/03/19 16:50 94 16 30 12/03/19 16:30 93 17 151/83 (105) 98 12/03/19 16:00 80 12/03/19 16:00 99 12/03/19 16:00 18 Mechanical Ventilator 80 12/03/19 16:00 Mechanical Ventilator Mechanical Ventilator Mechanical Ventilator 12/03/19 16:00 99.1 93 19 155/87 (109) 97 12/03/19 15:30 97 18 138/88 (105) 97 12/03/19 15:15 97 16 30 12/03/19 15:00 21 Mechanical Ventilator 80 12/03/19 15:00 95 21 151/95 (113) 97 12/03/19 14:30 97 20 148/87 (107) 95 12/03/19 14:00 21 Mechanical Ventilator 80 12/03/19 14:00 98 21 142/93 (109) 95 12/03/19 13:30 86 16 122/73 (89) 98 12/03/19 13:20 85 16 30 12/03/19 13:00 16 Mechanical Ventilator 80 12/03/19 13:00 100 16 136/82 (100) 95 12/03/19 12:30 93 20 161/96 (117) 97 12/03/19 12:00 Mechanical Ventilator Mechanical Ventilator Mechanical Ventilator 12/03/19 12:00 18 Mechanical Ventilator 80 12/03/19 12:00 99.4 99 18 150/88 (108) 98 12/03/19 12:00 94 12/03/19 12:00 80 12/03/19 11:30 97 17 157/88 (111) 98 12/03/19 11:25 90 16 30 12/03/19 11:00 15 Mechanical Ventilator 80 12/03/19 11:00 94 15 145/97 (113) 99 12/03/19 10:40 23 Mechanical Ventilator 80 12/03/19 10:39 16 Mechanical Ventilator 80 12/03/19 10:35 155/99 12/03/19 10:30 95 21 155/99 (117) 100 12/03/19 10:00 83 16 136/93 (107) 100 12/03/19 10:00 16 Mechanical Ventilator 80 Status: sedated Condition: critical HEENT: atraumatic Lungs: rales, rhonchi Heart: HR/BP stable Abdomen: soft Extremities: no C/C/E Critical Care - Subjective ROS Limited/Unobtainable: No FI02: 40 Vent Support Breath Rate: 16 Vent Support Mode: AC Vent Tidal Volume: 550 Sputum Amount: Moderate PEEP: 0.0 PIP: 36 Tube Feeding Amount: 40 I&O: Intake and Output 12/03/19 12/04/19 19:00 07:00 Intake Total 1200.68795 ml 1297 ml Output Total 1315 ml 1255 ml Balance -114.84601 ml 42 ml Free Water 30 ml 60 ml IV Total 1000.25328 ml 757 ml Tube Feeding 170 ml 480 ml Output Urine Total 975 ml 805 ml Chest Tube Drainage Total 340 ml 450 ml # Bowel Movements 1 ET-Tube: 7.5 ET Position: 23 Labs: Laboratory Tests Test 12/04/19 04:00 White Blood Count 28.5 K/UL (4.8-10.8) *H Red Blood Count 3.31 M/UL (4.70-6.10) L Hemoglobin 10.3 G/DL (14.2-18.0) L Hematocrit 30.4 % (42.0-52.0) L Mean Corpuscular Volume 92 FL (80-99) Mean Corpuscular Hemoglobin 31.2 PG (27.0-31.0) H Mean Corpuscular Hemoglobin Concent 34.0 G/DL (32.0-36.0) Red Cell Distribution Width 15.9 % (11.6-14.8) H Platelet Count 311 K/UL (150-450) Mean Platelet Volume 4.6 FL (6.5-10.1) L Neutrophils (%) (Auto) % (45.0-75.0) Lymphocytes (%) (Auto) % (20.0-45.0) Monocytes (%) (Auto) % (1.0-10.0) Eosinophils (%) (Auto) % (0.0-3.0) Basophils (%) (Auto) % (0.0-2.0) Differential Total Cells Counted 100 Neutrophils % (Manual) 90 % (45-75) H Lymphocytes % (Manual) 2 % (20-45) L Monocytes % (Manual) 8 % (1-10) Eosinophils % (Manual) 0 % (0-3) Basophils % (Manual) 0 % (0-2) Band Neutrophils 0 % (0-8) Platelet Estimate Adequate Platelet Morphology Normal Hypochromasia 1+ Anisocytosis 1+ Sodium Level 145 MMOL/L (136-145) Potassium Level 3.3 MMOL/L (3.5-5.1) L Chloride Level 110 MMOL/L (98-107) H Carbon Dioxide Level 21 MMOL/L (21-32) Anion Gap 14 mmol/L (5-15) Blood Urea Nitrogen 64 mg/dL (7-18) H Creatinine 5.2 MG/DL (0.55-1.30) H Estimat Glomerular Filtration Rate 12.8 mL/min (>60) Glucose Level 128 MG/DL (74-106) H Calcium Level 8.9 MG/DL (8.5-10.1) Susannah Hightower MD Dec 04, 2019 10:07
--- NOTE | 2019-12-04 10:28 | Nephrology Progress Note ---
Assessment/Plan Problem List: (1) Acute on chronic renal insufficiency Assessment: Serum creatinine leveling off around 5 (2) Acute hypercapnic respiratory failure (3) Anemia in chronic kidney disease (CKD) (4) BPH (benign prostatic hyperplasia) (5) Pneumothorax on left Assessment: Has chest tube Assessment Acute renal failure Possible underlying chronic kidney failure Hyperkalemia Anemia other conditions: (1) Acute hypercapnic respiratory failure (2) Paroxysmal A-fib (3) Anemia, chronic renal failure (4) History of hypertension (5) Alzheimer's dementia (6) Chronic hepatitis (7) BPH (benign prostatic hyperplasia) Plan Has left chest tube Patient now on NG feeding Patient was transfused previously. Adjust blood pressure medication Protonix drip to IV every 12 hours Off aspirin Carafate through NG tube Per GI Stop hydration Nitrate Previously: Trial of Zaroxolyn as chest x-ray indicates worsening CHF as needed Monitor intake and output Monitor renal parameters Avoid nephrotoxic's Kidney ultrasound results noted indicative of chronicity 2D echocardiogram result noted ejection fraction 55% Anemia work-up noted Per orders Discussed with Dr. Zaidi Subjective ROS Limited/Unobtainable: Yes Objective Objective Last 24 Hour Vital Signs Date Time Temp Pulse Resp B/P (MAP) Pulse Ox O2 Delivery O2 Flow Rate FiO2 12/04/19 09:25 24 Mechanical Ventilator 40 12/04/19 09:06 88 176/107 12/04/19 08:58 97 178/101 12/04/19 08:58 178/101 12/04/19 08:43 122 23 40 12/04/19 08:37 12/04/19 08:00 40 12/04/19 07:16 89 16 40 12/04/19 07:00 91 25 167/103 (124) 100 12/04/19 07:00 22 Mechanical Ventilator 40 12/04/19 06:37 18 20 12/04/19 06:00 18 Mechanical Ventilator 40 12/04/19 06:00 96 19 171/100 (123) 98 12/04/19 05:30 88 22 156/90 (112) 97 12/04/19 05:05 97 19 50 12/04/19 05:00 90 19 163/100 (121) 99 12/04/19 05:00 22 Mechanical Ventilator 40 12/04/19 04:30 94 18 161/88 (112) 99 12/04/19 04:25 95 20 161/95 (117) 98 12/04/19 04:00 98 12/04/19 04:00 Mechanical Ventilator Mechanical Ventilator Mechanical Ventilator 12/04/19 04:00 50 12/04/19 04:00 26 Mechanical Ventilator 40 12/04/19 04:00 99.5 95 20 171/96 (121) 98 12/04/19 03:30 109 22 180/91 (120) 100 12/04/19 03:10 120 27 50 12/04/19 03:00 107 24 171/95 (120) 100 12/04/19 03:00 26 Mechanical Ventilator 40 12/04/19 02:30 123 20 168/114 (132) 97 12/04/19 02:00 22 Mechanical Ventilator 50 12/04/19 02:00 92 19 150/90 (110) 98 12/04/19 01:30 92 19 152/93 (112) 98 12/04/19 01:07 94 17 60 12/04/19 01:00 87 18 149/84 (105) 95 12/04/19 01:00 24 Mechanical Ventilator 50 12/04/19 00:30 91 21 144/102 (116) 95 12/04/19 00:00 98.9 88 20 144/83 (103) 95 12/04/19 00:00 50 12/04/19 00:00 85 12/04/19 00:00 26 Mechanical Ventilator 50 12/04/19 00:00 Mechanical Ventilator Mechanical Ventilator Mechanical Ventilator 12/03/19 23:30 87 21 147/85 (105) 95 12/03/19 23:02 89 16 60 12/03/19 23:00 84 20 139/86 (103) 94 12/03/19 23:00 22 Mechanical Ventilator 60 12/03/19 22:00 82 19 134/87 (103) 94 12/03/19 22:00 16 Mechanical Ventilator 60 12/03/19 21:30 93 17 136/77 (96) 95 12/03/19 21:13 98 151/89 12/03/19 21:12 102 23 60 12/03/19 21:00 89 20 133/79 (97) 91 12/03/19 21:00 16 Mechanical Ventilator 40 12/03/19 20:30 91 21 137/72 (93) 90 12/03/19 20:00 60 12/03/19 20:00 Mechanical Ventilator Mechanical Ventilator Mechanical Ventilator 12/03/19 20:00 16 Mechanical Ventilator 40 12/03/19 20:00 99.0 89 21 136/79 (98) 86 12/03/19 20:00 88 12/03/19 19:30 98 20 151/89 (109) 97 12/03/19 19:25 88 17 30 12/03/19 19:00 92 18 141/83 (102) 98 12/03/19 19:00 18 Mechanical Ventilator 80 12/03/19 18:30 90 16 137/84 (101) 99 12/03/19 18:09 87 146/86 12/03/19 18:00 93 17 146/86 (106) 99 12/03/19 18:00 17 Mechanical Ventilator 80 12/03/19 17:30 88 16 125/77 (93) 99 12/03/19 17:00 94 27 149/88 (108) 98 12/03/19 17:00 27 Non-Rebreather 80 12/03/19 16:50 94 16 30 12/03/19 16:30 93 17 151/83 (105) 98 12/03/19 16:00 80 12/03/19 16:00 99 12/03/19 16:00 18 Mechanical Ventilator 80 12/03/19 16:00 Mechanical Ventilator Mechanical Ventilator Mechanical Ventilator 12/03/19 16:00 99.1 93 19 155/87 (109) 97 12/03/19 15:30 97 18 138/88 (105) 97 12/03/19 15:15 97 16 30 12/03/19 15:00 21 Mechanical Ventilator 80 12/03/19 15:00 95 21 151/95 (113) 97 12/03/19 14:30 97 20 148/87 (107) 95 12/03/19 14:00 21 Mechanical Ventilator 80 12/03/19 14:00 98 21 142/93 (109) 95 12/03/19 13:30 86 16 122/73 (89) 98 12/03/19 13:20 85 16 30 12/03/19 13:00 16 Mechanical Ventilator 80 12/03/19 13:00 100 16 136/82 (100) 95 12/03/19 12:30 93 20 161/96 (117) 97 12/03/19 12:00 Mechanical Ventilator Mechanical Ventilator Mechanical Ventilator 12/03/19 12:00 18 Mechanical Ventilator 80 12/03/19 12:00 99.4 99 18 150/88 (108) 98 12/03/19 12:00 94 12/03/19 12:00 80 12/03/19 11:30 97 17 157/88 (111) 98 12/03/19 11:25 90 16 30 12/03/19 11:00 15 Mechanical Ventilator 80 12/03/19 11:00 94 15 145/97 (113) 99 12/03/19 10:40 23 Mechanical Ventilator 80 12/03/19 10:39 16 Mechanical Ventilator 80 12/03/19 10:35 155/99 12/03/19 10:30 95 21 155/99 (117) 100 Intake and Output 12/03/19 12/04/19 19:00 07:00 Intake Total 1200.86592 ml 1297 ml Output Total 1315 ml 1255 ml Balance -114.62768 ml 42 ml Free Water 30 ml 60 ml IV Total 1000.30474 ml 757 ml Tube Feeding 170 ml 480 ml Output Urine Total 975 ml 805 ml Chest Tube Drainage Total 340 ml 450 ml # Bowel Movements 1 Laboratory Tests 12/04/19 04:00: White Blood Count 28.5*H, Red Blood Count 3.31L, Hemoglobin 10.3L, Hematocrit 30.4L, Mean Corpuscular Volume 92, Mean Corpuscular Hemoglobin 31.2H, Mean Corpuscular Hemoglobin Concent 34.0, Red Cell Distribution Width 15.9H, Platelet Count 311, Mean Platelet Volume 4.6L, Neutrophils (%) (Auto) , Lymphocytes (%) (Auto) , Monocytes (%) (Auto) , Eosinophils (%) (Auto) , Basophils (%) (Auto) , Differential Total Cells Counted 100, Neutrophils % ( Manual) 90H, Lymphocytes % (Manual) 2L, Monocytes % (Manual) 8, Eosinophils % ( Manual) 0, Basophils % (Manual) 0, Band Neutrophils 0, Platelet Estimate Adequate, Platelet Morphology Normal, Hypochromasia 1+, Anisocytosis 1+, Sodium Level 145, Potassium Level 3.3L, Chloride Level 110H, Carbon Dioxide Level 21, Anion Gap 14, Blood Urea Nitrogen 64H, Creatinine 5.2H, Estimat Glomerular Filtration Rate 12.8, Glucose Level 128H, Calcium Level 8.9 Height (Feet): 5 Height (Inches): 10.00 Weight (Pounds): 205 General Appearance: no apparent distress EENT: other - Intubated and vented Cardiovascular: tachycardia Respiratory/Chest: other - Left side chest tube Objective No change Reynold Ellison MD Dec 04, 2019 10:28
[2019-12-04] MEDS: Nitroglycerin Patch 0.4mg TDERMAL SCH (10:29)
--- NOTE | 2019-12-04 10:30 | NUR ---
NURSE NOTES: Dr Barakat, Terra, Katja, and Mariela at bedside assessing pt. Dr Ellison made aware of pt's potassium level today of 3.3 and instances of HTN since this morning, Dr Sierra made aware of pt's black, tarry stool during evening shift.
[2019-12-04] MEDS: Pantoprazole Inj IVP SCH ×2 (10:41→21:24)
--- NOTE | 2019-12-04 11:04 | General Progress Note ---
Assessment/Plan Status: stable, unchanged Assessment/Plan: Assessment/Plan: Assessment/Plan 1. atrial fibrillation. 2. Tachycardia. 3. Renal insufficiency. 4. Obstructive uropathy. 5. hypertension. 6. Prostatic hypertrophy. 7. History of latent tuberculosis. 8. History of heart failure. 9. History of hepatitis C infection. 10. Respiratory failure with respiratory acidosis, now on vent 11. UGIB 12. Proximal stomach ulcer and GIB, adherent clot, difficult visualization Recommendations TF - Daily CBC PPI Carafate Elevate HOB fu H&H ivf management per nephro Subjective ROS Limited/Unobtainable: No Allergies: Coded Allergies: LISINOPRIL (Verified Allergy, Unknown, 11/21/19) SIMVASTATIN (Verified Allergy, Unknown, 11/21/19) TERAZOSIN (Verified Allergy, Unknown, 11/21/19) Objective Last 24 Hour Vital Signs Date Time Temp Pulse Resp B/P (MAP) Pulse Ox O2 Delivery O2 Flow Rate FiO2 12/04/19 10:29 141/88 12/04/19 09:25 24 Mechanical Ventilator 40 12/04/19 09:06 88 176/107 12/04/19 08:58 97 178/101 12/04/19 08:58 178/101 12/04/19 08:43 122 23 40 12/04/19 08:37 12/04/19 08:00 40 12/04/19 07:16 89 16 40 12/04/19 07:00 91 25 167/103 (124) 100 12/04/19 07:00 22 Mechanical Ventilator 40 12/04/19 06:37 18 20 12/04/19 06:00 18 Mechanical Ventilator 40 12/04/19 06:00 96 19 171/100 (123) 98 12/04/19 05:30 88 22 156/90 (112) 97 12/04/19 05:05 97 19 50 12/04/19 05:00 90 19 163/100 (121) 99 12/04/19 05:00 22 Mechanical Ventilator 40 12/04/19 04:30 94 18 161/88 (112) 99 12/04/19 04:25 95 20 161/95 (117) 98 12/04/19 04:00 98 12/04/19 04:00 Mechanical Ventilator Mechanical Ventilator Mechanical Ventilator 12/04/19 04:00 50 12/04/19 04:00 26 Mechanical Ventilator 40 12/04/19 04:00 99.5 95 20 171/96 (121) 98 12/04/19 03:30 109 22 180/91 (120) 100 12/04/19 03:10 120 27 50 12/04/19 03:00 107 24 171/95 (120) 100 12/04/19 03:00 26 Mechanical Ventilator 40 12/04/19 02:30 123 20 168/114 (132) 97 12/04/19 02:00 22 Mechanical Ventilator 50 12/04/19 02:00 92 19 150/90 (110) 98 12/04/19 01:30 92 19 152/93 (112) 98 12/04/19 01:07 94 17 60 12/04/19 01:00 87 18 149/84 (105) 95 12/04/19 01:00 24 Mechanical Ventilator 50 12/04/19 00:30 91 21 144/102 (116) 95 12/04/19 00:00 98.9 88 20 144/83 (103) 95 12/04/19 00:00 50 12/04/19 00:00 85 12/04/19 00:00 26 Mechanical Ventilator 50 12/04/19 00:00 Mechanical Ventilator Mechanical Ventilator Mechanical Ventilator 12/03/19 23:30 87 21 147/85 (105) 95 12/03/19 23:02 89 16 60 12/03/19 23:00 84 20 139/86 (103) 94 12/03/19 23:00 22 Mechanical Ventilator 60 12/03/19 22:00 82 19 134/87 (103) 94 12/03/19 22:00 16 Mechanical Ventilator 60 12/03/19 21:30 93 17 136/77 (96) 95 12/03/19 21:13 98 151/89 12/03/19 21:12 102 23 60 12/03/19 21:00 89 20 133/79 (97) 91 12/03/19 21:00 16 Mechanical Ventilator 40 12/03/19 20:30 91 21 137/72 (93) 90 12/03/19 20:00 60 12/03/19 20:00 Mechanical Ventilator Mechanical Ventilator Mechanical Ventilator 12/03/19 20:00 16 Mechanical Ventilator 40 12/03/19 20:00 99.0 89 21 136/79 (98) 86 12/03/19 20:00 88 12/03/19 19:30 98 20 151/89 (109) 97 12/03/19 19:25 88 17 30 12/03/19 19:00 92 18 141/83 (102) 98 12/03/19 19:00 18 Mechanical Ventilator 80 12/03/19 18:30 90 16 137/84 (101) 99 12/03/19 18:09 87 146/86 12/03/19 18:00 93 17 146/86 (106) 99 12/03/19 18:00 17 Mechanical Ventilator 80 12/03/19 17:30 88 16 125/77 (93) 99 12/03/19 17:00 94 27 149/88 (108) 98 12/03/19 17:00 27 Non-Rebreather 80 12/03/19 16:50 94 16 30 12/03/19 16:30 93 17 151/83 (105) 98 12/03/19 16:00 80 12/03/19 16:00 99 12/03/19 16:00 18 Mechanical Ventilator 80 12/03/19 16:00 Mechanical Ventilator Mechanical Ventilator Mechanical Ventilator 12/03/19 16:00 99.1 93 19 155/87 (109) 97 12/03/19 15:30 97 18 138/88 (105) 97 12/03/19 15:15 97 16 30 12/03/19 15:00 21 Mechanical Ventilator 80 12/03/19 15:00 95 21 151/95 (113) 97 12/03/19 14:30 97 20 148/87 (107) 95 12/03/19 14:00 21 Mechanical Ventilator 80 12/03/19 14:00 98 21 142/93 (109) 95 12/03/19 13:30 86 16 122/73 (89) 98 12/03/19 13:20 85 16 30 12/03/19 13:00 16 Mechanical Ventilator 80 12/03/19 13:00 100 16 136/82 (100) 95 12/03/19 12:30 93 20 161/96 (117) 97 12/03/19 12:00 Mechanical Ventilator Mechanical Ventilator Mechanical Ventilator 12/03/19 12:00 18 Mechanical Ventilator 80 12/03/19 12:00 99.4 99 18 150/88 (108) 98 12/03/19 12:00 94 12/03/19 12:00 80 12/03/19 11:30 97 17 157/88 (111) 98 12/03/19 11:25 90 16 30 Intake and Output 12/03/19 12/04/19 19:00 07:00 Intake Total 1200.12459 ml 1297 ml Output Total 1315 ml 1255 ml Balance -114.75977 ml 42 ml Free Water 30 ml 60 ml IV Total 1000.24011 ml 757 ml Tube Feeding 170 ml 480 ml Output Urine Total 975 ml 805 ml Chest Tube Drainage Total 340 ml 450 ml # Bowel Movements 1 Laboratory Tests 12/04/19 04:00: White Blood Count 28.5*H, Red Blood Count 3.31L, Hemoglobin 10.3L, Hematocrit 30.4L, Mean Corpuscular Volume 92, Mean Corpuscular Hemoglobin 31.2H, Mean Corpuscular Hemoglobin Concent 34.0, Red Cell Distribution Width 15.9H, Platelet Count 311, Mean Platelet Volume 4.6L, Neutrophils (%) (Auto) , Lymphocytes (%) (Auto) , Monocytes (%) (Auto) , Eosinophils (%) (Auto) , Basophils (%) (Auto) , Differential Total Cells Counted 100, Neutrophils % ( Manual) 90H, Lymphocytes % (Manual) 2L, Monocytes % (Manual) 8, Eosinophils % ( Manual) 0, Basophils % (Manual) 0, Band Neutrophils 0, Platelet Estimate Adequate, Platelet Morphology Normal, Hypochromasia 1+, Anisocytosis 1+, Sodium Level 145, Potassium Level 3.3L, Chloride Level 110H, Carbon Dioxide Level 21, Anion Gap 14, Blood Urea Nitrogen 64H, Creatinine 5.2H, Estimat Glomerular Filtration Rate 12.8, Glucose Level 128H, Calcium Level 8.9 Height (Feet): 5 Height (Inches): 10.00 Weight (Pounds): 205 General Appearance: no apparent distress EENT: normal ENT inspection Neck: supple Cardiovascular: normal rate Respiratory/Chest: decreased breath sounds Abdomen: normal bowel sounds, non tender, soft Extremities: non-tender Hunter Sierra MD Dec 04, 2019 11:04
--- NOTE | 2019-12-04 12:00 | NUR ---
NURSE NOTES: Pt repositioned, oral care provided, no distress noted. Will continue to monitor.
--- NOTE | 2019-12-04 14:00 | NUR ---
NURSE NOTES: Dr Zaidi at bedside assessing pt and made aware of pt's HR and BP trends this morning. Addendum: 12/04/19 at 1430 by Nuris Manley RN Late entry: pt also repositioned, no distress noted at this time.
--- NOTE | 2019-12-04 14:39 | Cardiology Progress Note ---
Assessment/Plan Assessment/Plan 1. Permanent versus paroxysmal episodes of atrial fibrillation. 2. Tachycardia. 3. Renal insufficiency. 4. Obstructive uropathy. 5. History of hypertension. 6. Prostatic hypertrophy. 7. History of latent tuberculosis. 8. History of heart failure. 9. History of hepatitis C infection. 10. Respiratory failure with respiratory acidosis, now on vent 11. melanotic stool 12 large gastric clot 13 Cardiopulmonary arrest 12/01-12/02 s/p champagne in ETT ? obstruction in ETT?? 14. PTX cxr personally reviewed tele personally reviewed bp seems ok torp abn likely due to renal insuf off heparin due to gi bleed s/p 3 unit f prbc d/w rn need to be in neg fluid balance rate control with iv bb egd not successful again du to persistent due to large clot present in the ge junction 12/01-12/02 early am: per rn note: desaturating, unable to suction, cannot pass thru via ett, clenching on the ett,rt called, bagged patient then engine monitor showed clemente code blue called at 0110,old ett removed and reintubated now seem ok with bp and hr not suer mentally on sedative repeat ekg and trop in am chest tube in place cxr personally reviwed mentataion appear poor compared to prior to arrest now not responsi ve Subjective ROS Limited/Unobtainable: Yes Subjective vent isolation Objective Last 24 Hour Vital Signs Date Time Temp Pulse Resp B/P (MAP) Pulse Ox O2 Delivery O2 Flow Rate FiO2 12/04/19 14:00 16 Mechanical Ventilator 40 12/04/19 14:00 88 16 135/57 (83) 100 12/04/19 13:43 157/87 12/04/19 13:30 91 27 157/87 (110) 100 12/04/19 13:00 95 28 168/101 (123) 100 12/04/19 13:00 28 Mechanical Ventilator 40 12/04/19 12:48 97 16 40 12/04/19 12:30 95 29 174/94 (120) 100 12/04/19 12:06 83 12/04/19 12:00 27 Mechanical Ventilator 40 12/04/19 12:00 30 12/04/19 12:00 99.1 94 27 167/93 (117) 100 12/04/19 12:00 Mechanical Ventilator Mechanical Ventilator Mechanical Ventilator Mechanical Ventilator 12/04/19 11:30 89 28 100 12/04/19 11:02 86 17 40 12/04/19 11:00 87 29 159/88 (111) 100 12/04/19 11:00 29 Mechanical Ventilator 40 12/04/19 10:30 86 27 149/83 (105) 98 12/04/19 10:29 141/88 12/04/19 10:00 28 Mechanical Ventilator 40 12/04/19 10:00 85 27 141/88 (105) 100 12/04/19 09:35 30 12/04/19 09:30 84 28 145/83 (103) 100 12/04/19 09:25 24 Mechanical Ventilator 40 12/04/19 09:22 82 26 137/89 (105) 100 12/04/19 09:14 91 23 164/98 (120) 100 12/04/19 09:08 103 25 184/105 (131) 100 12/04/19 09:06 88 176/107 12/04/19 09:04 102 24 176/107 (130) 100 12/04/19 09:00 111 23 194/113 (140) 100 12/04/19 09:00 24 Mechanical Ventilator 40 12/04/19 08:58 97 178/101 12/04/19 08:58 178/101 12/04/19 08:43 122 23 40 12/04/19 08:37 12/04/19 08:30 97 25 178/101 (126) 100 12/04/19 08:19 94 25 181/110 (133) 100 12/04/19 08:00 Mechanical Ventilator Mechanical Ventilator Mechanical Ventilator Mechanical Ventilator 12/04/19 08:00 98.8 98 23 187/120 (142) 100 12/04/19 08:00 35 12/04/19 08:00 95 12/04/19 08:00 25 Mechanical Ventilator 40 12/04/19 07:30 94 24 175/98 (123) 100 12/04/19 07:16 89 16 40 12/04/19 07:00 91 25 167/103 (124) 100 12/04/19 07:00 22 Mechanical Ventilator 40 12/04/19 06:37 18 20 12/04/19 06:00 18 Mechanical Ventilator 40 12/04/19 06:00 96 19 171/100 (123) 98 12/04/19 05:30 88 22 156/90 (112) 97 12/04/19 05:05 97 19 50 12/04/19 05:00 90 19 163/100 (121) 99 12/04/19 05:00 22 Mechanical Ventilator 40 12/04/19 04:30 94 18 161/88 (112) 99 12/04/19 04:25 95 20 161/95 (117) 98 12/04/19 04:00 98 12/04/19 04:00 Mechanical Ventilator Mechanical Ventilator Mechanical Ventilator 12/04/19 04:00 50 12/04/19 04:00 26 Mechanical Ventilator 40 12/04/19 04:00 99.5 95 20 171/96 (121) 98 12/04/19 03:30 109 22 180/91 (120) 100 12/04/19 03:10 120 27 50 12/04/19 03:00 107 24 171/95 (120) 100 12/04/19 03:00 26 Mechanical Ventilator 40 12/04/19 02:30 123 20 168/114 (132) 97 12/04/19 02:00 22 Mechanical Ventilator 50 12/04/19 02:00 92 19 150/90 (110) 98 12/04/19 01:30 92 19 152/93 (112) 98 12/04/19 01:07 94 17 60 12/04/19 01:00 87 18 149/84 (105) 95 12/04/19 01:00 24 Mechanical Ventilator 50 12/04/19 00:30 91 21 144/102 (116) 95 12/04/19 00:00 98.9 88 20 144/83 (103) 95 12/04/19 00:00 50 12/04/19 00:00 85 12/04/19 00:00 26 Mechanical Ventilator 50 12/04/19 00:00 Mechanical Ventilator Mechanical Ventilator Mechanical Ventilator 12/03/19 23:30 87 21 147/85 (105) 95 12/03/19 23:02 89 16 60 12/03/19 23:00 84 20 139/86 (103) 94 12/03/19 23:00 22 Mechanical Ventilator 60 12/03/19 22:00 82 19 134/87 (103) 94 12/03/19 22:00 16 Mechanical Ventilator 60 12/03/19 21:30 93 17 136/77 (96) 95 12/03/19 21:13 98 151/89 12/03/19 21:12 102 23 60 12/03/19 21:00 89 20 133/79 (97) 91 12/03/19 21:00 16 Mechanical Ventilator 40 12/03/19 20:30 91 21 137/72 (93) 90 12/03/19 20:00 60 12/03/19 20:00 Mechanical Ventilator Mechanical Ventilator Mechanical Ventilator 12/03/19 20:00 16 Mechanical Ventilator 40 12/03/19 20:00 99.0 89 21 136/79 (98) 86 12/03/19 20:00 88 12/03/19 19:30 98 20 151/89 (109) 97 12/03/19 19:25 88 17 30 12/03/19 19:00 92 18 141/83 (102) 98 12/03/19 19:00 18 Mechanical Ventilator 80 12/03/19 18:30 90 16 137/84 (101) 99 12/03/19 18:09 87 146/86 12/03/19 18:00 93 17 146/86 (106) 99 12/03/19 18:00 17 Mechanical Ventilator 80 12/03/19 17:30 88 16 125/77 (93) 99 12/03/19 17:00 94 27 149/88 (108) 98 12/03/19 17:00 27 Non-Rebreather 80 12/03/19 16:50 94 16 30 12/03/19 16:30 93 17 151/83 (105) 98 12/03/19 16:00 80 12/03/19 16:00 99 12/03/19 16:00 18 Mechanical Ventilator 80 12/03/19 16:00 Mechanical Ventilator Mechanical Ventilator Mechanical Ventilator Mechanical Ventilator 12/03/19 16:00 99.1 93 19 155/87 (109) 97 12/03/19 15:30 97 18 138/88 (105) 97 12/03/19 15:15 97 16 30 12/03/19 15:00 21 Mechanical Ventilator 80 12/03/19 15:00 95 21 151/95 (113) 97 General Appearance: no apparent distress, on vent, patient on isolation Neck: supple Cardiovascular: normal rate Respiratory/Chest: lungs clear Abdomen: normal bowel sounds, non tender, soft Extremities: no swelling Intake and Output 12/03/19 12/04/19 19:00 07:00 Intake Total 1200.82839 ml 1297 ml Output Total 1315 ml 1255 ml Balance -114.68404 ml 42 ml Free Water 30 ml 60 ml IV Total 1000.01457 ml 757 ml Tube Feeding 170 ml 480 ml Output Urine Total 975 ml 805 ml Chest Tube Drainage Total 340 ml 450 ml # Bowel Movements 1 Laboratory Tests Test 12/04/19 04:00 White Blood Count 28.5 K/UL (4.8-10.8) *H Red Blood Count 3.31 M/UL (4.70-6.10) L Hemoglobin 10.3 G/DL (14.2-18.0) L Hematocrit 30.4 % (42.0-52.0) L Mean Corpuscular Volume 92 FL (80-99) Mean Corpuscular Hemoglobin 31.2 PG (27.0-31.0) H Mean Corpuscular Hemoglobin Concent 34.0 G/DL (32.0-36.0) Red Cell Distribution Width 15.9 % (11.6-14.8) H Platelet Count 311 K/UL (150-450) Mean Platelet Volume 4.6 FL (6.5-10.1) L Neutrophils (%) (Auto) % (45.0-75.0) Lymphocytes (%) (Auto) % (20.0-45.0) Monocytes (%) (Auto) % (1.0-10.0) Eosinophils (%) (Auto) % (0.0-3.0) Basophils (%) (Auto) % (0.0-2.0) Differential Total Cells Counted 100 Neutrophils % (Manual) 90 % (45-75) H Lymphocytes % (Manual) 2 % (20-45) L Monocytes % (Manual) 8 % (1-10) Eosinophils % (Manual) 0 % (0-3) Basophils % (Manual) 0 % (0-2) Band Neutrophils 0 % (0-8) Platelet Estimate Adequate Platelet Morphology Normal Hypochromasia 1+ Anisocytosis 1+ Sodium Level 145 MMOL/L (136-145) Potassium Level 3.3 MMOL/L (3.5-5.1) L Chloride Level 110 MMOL/L (98-107) H Carbon Dioxide Level 21 MMOL/L (21-32) Anion Gap 14 mmol/L (5-15) Blood Urea Nitrogen 64 mg/dL (7-18) H Creatinine 5.2 MG/DL (0.55-1.30) H Estimat Glomerular Filtration Rate 12.8 mL/min (>60) Glucose Level 128 MG/DL (74-106) H Calcium Level 8.9 MG/DL (8.5-10.1) Vasu Zaidi MD Dec 04, 2019 14:39
--- NOTE | 2019-12-04 14:45 | Diagnostic Imaging Report ---
Indication: Shortness of breath Technique: One view of the chest Comparison: 12/03/2019 Findings: Left chest tube is again demonstrated. There is no evidence of pneumothorax. There is interim development of interstitial and airspace disease throughout the left lung. Previously demonstrated right pleural effusion appears markedly improved. There is interstitial congestion involving the right lung which is probably similar to the prior exam. Stable satisfactory positions of endotracheal and nasogastric tubes. Interim considerable improvement of previously demonstrated left chest wall subcutaneous emphysema, now largely resolved. The heart size is upper limits of normal. Stable satisfactory positions of endotracheal and nasogastric tubes Impression: Developing interstitial and airspace disease throughout the left lung. Given evidence of recent chest tube placement and evacuation of large pneumothorax, this could represent extension pulmonary edema. Alternatively, as could represent pneumonia or pulmonary edema of other etiologies. Decreased right pleural effusion, over one day Persistent right lung interstitial congestion Markedly improved subcutaneous emphysema
--- NOTE | 2019-12-04 15:15 | NUR ---
NURSE NOTES: Dr Galarza at bedside assessing pt.
--- NOTE | 2019-12-04 16:00 | NUR ---
NURSE NOTES: Pt repositioned, oral care provided, no distress noted.
--- NOTE | 2019-12-04 16:22 | Internal Med Progress Note ---
Subjective Date of Service: Dec 04, 2019 Physician Name MarilouAbisai Attending Physician Claude Garza MD Current Medications Medications (Trade) Dose Ordered Sig/Cyndi Route PRN Reason Start Time Stop Time Status Last Admin Dose Admin Acetaminophen (Tylenol) 650 mg Q4H PRN NG Fever 11/21/19 13:00 12/21/19 08:14 11/28/19 16:19 Amikacin Protocol (Amikacin pharmacy to dose) 1 ea DAILY PRN MISC Per rx protocol 11/29/19 15:00 12/29/19 14:59 Amlodipine Besylate (Norvasc) 5 mg BID NG 12/02/19 18:00 12/27/19 12:44 12/04/19 08:58 Chlorhexidine Gluconate (Corrie-Hex 2%) 1 applic DAILY@1999 TOPIC 11/27/19 20:00 02/25/20 19:59 12/03/19 21:13 Clonidine HCl (Catapres Tab) 0.1 mg EVERY 8 HOURS NG 12/04/19 14:00 03/03/20 13:59 12/04/19 13:43 Dextrose (Dextrose 50%) 25 ml Q30M PRN IV Hypoglycemia 11/21/19 08:15 02/19/20 08:14 Dextrose (Dextrose 50%) 50 ml Q30M PRN IV Hypoglycemia 11/21/19 08:15 02/19/20 08:14 Docusate Sodium (Colace) 100 mg THREE TIMES A DAY NG 11/21/19 13:00 12/21/19 12:59 12/04/19 13:43 Fentanyl Citrate 1000 mcg/Sodium Chloride 100 ml @ 0 mls/hr Q24H IV 12/05/19 09:00 12/12/19 08:59 Fentanyl Citrate 2500 mcg/Sodium Chloride 250 ml @ 0 mls/hr Q24H IV 11/29/19 16:00 12/05/19 08:59 12/04/19 09:25 Hydralazine HCl (Apresoline) 10 mg Q4H PRN IV BP over 160 sys 11/29/19 13:30 02/27/20 13:29 12/04/19 08:58 Lorazepam (Ativan 2mg/ml 1ml) 1 mg Q6HR PRN IV Agitation 12/03/19 20:00 12/10/19 19:59 12/04/19 09:14 Meropenem 500 mg/ Sodium Chloride 55 ml @ 110 mls/hr Q12HR IVPB 12/04/19 09:00 12/07/19 08:59 12/04/19 09:24 Metoclopramide HCl (Reglan) 5 mg Q8H IVP 11/30/19 18:00 12/30/19 17:59 12/04/19 10:28 Metoprolol Tartrate (Lopressor) 50 mg Q12HR NG 11/28/19 21:00 02/19/20 20:59 12/04/19 09:06 Nitroglycerin (Ntg) 1 patch Q24H TDERMAL 11/22/19 11:00 12/22/19 10:59 12/04/19 10:29 Ondansetron HCl (Zofran) 4 mg Q6H PRN IVP Nausea & Vomiting 11/21/19 08:15 12/21/19 08:14 Pantoprazole (Protonix) 40 mg EVERY 12 HOURS IVP 12/04/19 10:30 01/03/20 10:29 12/04/19 10:41 Polyethylene Glycol (Miralax) 17 gm DAILYPRN PRN NG Constipation 11/21/19 13:00 12/21/19 08:14 Sucralfate (Carafate) 1 gm FOUR TIMES A DAY NG 11/29/19 13:30 02/27/20 13:29 12/04/19 13:43 Allergies: Coded Allergies: LISINOPRIL (Verified Allergy, Unknown, 11/21/19) SIMVASTATIN (Verified Allergy, Unknown, 11/21/19) TERAZOSIN (Verified Allergy, Unknown, 11/21/19) ROS Limited/Unobtainable: Yes Subjective 83 YO M admitted with respiratory failure. Now pneumonia, UTI and sepsis. Cover for Int Franc-DR Garza. Intubated and sedated. ICU Objective Last Vital Signs Date Time Temp Pulse Resp B/P (MAP) Pulse Ox O2 Delivery O2 Flow Rate FiO2 12/04/19 16:00 90 12/04/19 15:00 18 152/90 (110) 100 12/04/19 15:00 Mechanical Ventilator 40 12/04/19 12:00 99.1 Laboratory Tests Test 12/04/19 04:00 White Blood Count 28.5 K/UL (4.8-10.8) *H Red Blood Count 3.31 M/UL (4.70-6.10) L Hemoglobin 10.3 G/DL (14.2-18.0) L Hematocrit 30.4 % (42.0-52.0) L Mean Corpuscular Volume 92 FL (80-99) Mean Corpuscular Hemoglobin 31.2 PG (27.0-31.0) H Mean Corpuscular Hemoglobin Concent 34.0 G/DL (32.0-36.0) Red Cell Distribution Width 15.9 % (11.6-14.8) H Platelet Count 311 K/UL (150-450) Mean Platelet Volume 4.6 FL (6.5-10.1) L Neutrophils (%) (Auto) % (45.0-75.0) Lymphocytes (%) (Auto) % (20.0-45.0) Monocytes (%) (Auto) % (1.0-10.0) Eosinophils (%) (Auto) % (0.0-3.0) Basophils (%) (Auto) % (0.0-2.0) Differential Total Cells Counted 100 Neutrophils % (Manual) 90 % (45-75) H Lymphocytes % (Manual) 2 % (20-45) L Monocytes % (Manual) 8 % (1-10) Eosinophils % (Manual) 0 % (0-3) Basophils % (Manual) 0 % (0-2) Band Neutrophils 0 % (0-8) Platelet Estimate Adequate Platelet Morphology Normal Hypochromasia 1+ Anisocytosis 1+ Sodium Level 145 MMOL/L (136-145) Potassium Level 3.3 MMOL/L (3.5-5.1) L Chloride Level 110 MMOL/L (98-107) H Carbon Dioxide Level 21 MMOL/L (21-32) Anion Gap 14 mmol/L (5-15) Blood Urea Nitrogen 64 mg/dL (7-18) H Creatinine 5.2 MG/DL (0.55-1.30) H Estimat Glomerular Filtration Rate 12.8 mL/min (>60) Glucose Level 128 MG/DL (74-106) H Calcium Level 8.9 MG/DL (8.5-10.1) Intake and Output 12/03/19 12/04/19 19:00 07:00 Intake Total 1200.08672 ml 1297 ml Output Total 1315 ml 1255 ml Balance -114.95184 ml 42 ml Free Water 30 ml 60 ml IV Total 1000.14940 ml 757 ml Tube Feeding 170 ml 480 ml Output Urine Total 975 ml 805 ml Chest Tube Drainage Total 340 ml 450 ml # Bowel Movements 1 Objective PHYSICAL EXAMINATION: GENERAL: The patient is well-developed, well-nourished male, who is intubated and sedated in the intensive care unit. HEENT: Eyes, pupils are equal and responsive to light and accommodation. Extraocular movements are intact. NECK: Supple without lymphadenopathy. CHEST: Intubated; Bilateral expiratory air sounds, otherwise clear to auscultation without rales. CARDIOVASCULAR: Regular rhythm and rate. S1 and S2 normal without murmurs, rubs, or gallops. ABDOMEN: Soft, nontender, and nondistended. Positive bowel sounds. No evidence of hepatosplenomegaly. Currently, no rebound or guarding noted. EXTREMITIES: Negative for clubbing, cyanosis, or edema. RECTAL/GENITAL: Not performed. NEUROLOGIC: Cranial nerves II through XII are grossly intact without focal deficits. Motor strength is 5/5 bilaterally. Deep tendon reflexes are 2+ plantar. Assessment/Plan Assessment/Plan ASSESSMENT: This is an 83-year-old male. 1. Respiratory failure. 2. Congestive heart failure. 3. Atrial fibrillation. 4. Altered mental status. 5. Urinary tract infection. 6. Renal failure. 7. Hypertension. 8. Alzheimer's dementia. 9. Benign prostatic hypertrophy. 10. urinary tract infection-ESBL E. Coli and pseudamonas aeruginosa. 11. Sepsis-Staph Warneri 12. pneumonia=pseudamonas aeruginosa TREATMENT: 1. Congestive heart failure. A Cardiology consultation has been obtained with Dr. Vasu Zaidi. We will follow recommendations of Cardiology. The patient is currently receiving intravenous Lasix. 2. Respiratory failure. A Pulmonary consultation has been obtained with Dr. Susannah Hightower. Vent per pulmonary We will follow recommendations of Pulmonary. ABX=meropenem and vanco per ID=Dr Hicks 3. Atrial fibrillation as above. A Cardiology consultation has been obtained with Dr. Vasu Zaidi. 4. Renal failure. A Nephrology consultation has been obtained with Dr. Ellison. We will follow recommendations of Nephrology. 5. Hypertension. The patient is currently hypotensive in the intensive care unit. 6. Alzheimer's dementia. 7. Benign prostatic hypertrophy. 8. ABX = meropenem per Abisai Kimble MD Dec 04, 2019 16:22
--- NOTE | 2019-12-04 18:30 | NUR ---
NURSE NOTES: Pt repositioned, pt noted twitching head, will administer 1 mg PRN ativan IVP.
--- NOTE | 2019-12-04 19:24 | NUR ---
HAND-OFF: Report given to SYED Panda. Pt no longer observed twitching with head. RASS -2 noted.
--- NOTE | 2019-12-04 19:52 | NUR ---
NURSE NOTES: SBAR from Sindhu RN. Patient is currently orally intubated with ETT7.5/23cm at the lower left lip line. AC 16, 550Tv, 40% FiO2 and no peep. Patient is currently on sedation with Fentanyl at 50mcg/min and has a RASS of -2. Patient can open eyes to verbal commands for about 5-8 seconds. There is a left side chest tube that is on continuos suctioning of 20MMhg. There is serosanguineous fluid coming in chest tube tubing. There is a THAD PICC line double lumen that is infusing Fentanyl and NS TKO. [id number]. NAD at this time, VSS. Will continue to monitor.
[2019-12-04] MEDS: Dyna-Hex 2% Top Sol 2oz TOPIC SCH (20:00)
--- NOTE | 2019-12-04 20:00 | NUR ---
NURSE NOTES: Repositioned and oral care provided. Suctioned patient, thick tenacious secretions noted. Patient then lavaged and suctioned again. Afebrile at this time. Vitals are stable, will continue to monitor.
--- NOTE | 2019-12-04 22:00 | NUR ---
NURSE NOTES: Suctioned patient and all due meds were given, 30 ml of feed residual noted. Flushed NGT with 50 ml H20. Patient sedated with RASS of -2, patient opens eyes to verbal commands for about 5-7 seconds.
[2019-12-05] VITALS (47 sets, daily range): BP systolic 116–177; BP diastolic 69–110
--- NOTE | 2019-12-05 | NUR ---
NURSE NOTES: Repositioned patient and given oral care. Patient was lavaged and suctioned. Patient continuous to be sedated at RASS of -2 with eye opening to verbal command for about 5-7 seconds. Temperature of 99.7F. Cooling measures given.
--- NOTE | 2019-12-05 02:00 | NUR ---
NURSE NOTES: Repositioned patient, Vitals remains stable. Cooling measures continue. Patient still sedated maintains RASS of -2, maintains eye contact for about 5-7 seconds to verbal command.
--- NOTE | 2019-12-05 03:00 | NUR ---
NURSE NOTES: Temperature was 100.0 F (ax). Tylenol 650mg PO via NGT was given. Ativan 1mg IVP given for sedation.
[2019-12-05] MEDS: Acetaminophen 650mg/20.3ml NG PRN (03:04)
[2019-12-05] MEDS: Metoclopramide 10mg/2ml Inj IVP SCH (03:04)
[2019-12-05] MEDS: LORazepam Inj 2mg/ml 1ml IV PRN ×2 (03:04→20:17)
--- NOTE | 2019-12-05 04:00 | NUR ---
NURSE NOTES: Sponge bath given. Blood drawn and taken to lab. Lavaged and suctioned patient, thick secretions were noted. No BM at this time. Patient temperature now is 99.3F (ax). Blood pressure stable. RASS maintained at -2, eyes open to verbal commands for 5-7 seconds. PICC line remains patent and intact.
[2019-12-05 05:33] LABS: HEMATOCRIT 27.7 % (42.0-52.0); HEMOGLOBIN 9.4 G/DL (14.2-18.0); MEAN CORPUSCULAR VOLUME 92 FL (80-99); PLATELET COUNT 331 K/UL (150-450); RED BLOOD COUNT 3.03 M/UL (4.70-6.10); RED CELL DISTRIBUTION WIDTH 16.2 % (11.6-14.8)
[2019-12-05 05:57] LABS: ALANINE AMINOTRANSFERASE 10 U/L (12-78); ALBUMIN 1.9 G/DL (3.4-5.0); ALBUMIN/GLOBULIN RATIO 0.4 (1.0-2.7); ALKALINE PHOSPHATASE 62 U/L (46-116); ANION GAP 11 mmol/L (5-15); ASPARTATE AMINO TRANSFERASE 16 U/L (15-37); BILIRUBIN,TOTAL 0.3 MG/DL (0.2-1.0); BLOOD UREA NITROGEN 69 mg/dL (7-18); CALCIUM 8.6 MG/DL (8.5-10.1); CARBON DIOXIDE 23 MMOL/L (21-32); CHLORIDE 108 MMOL/L (98-107); CREATININE 5.4 MG/DL (0.55-1.30); PHOSPHORUS 3.4 MG/DL (2.5-4.9); POTASSIUM 3.1 MMOL/L (3.5-5.1); SODIUM 142 MMOL/L (136-145); WHITE BLOOD COUNT 25.2 K/UL (4.8-10.8)
--- NOTE | 2019-12-05 06:00 | NUR ---
NURSE NOTES: 300ml output from chest tube. Chest tube fluid is yellowish in color. Patients temperature is 98.8F. Blood pressure is stable, Patient remains sedated with RASS score of -2. Patient opens eyes to verbal stimulus for about 5-7 seconds. Repositioned patient, no BM yet.
--- NOTE | 2019-12-05 07:00 | NUR ---
RESPIRATORY NOTES: Received Patient on Vent settings ACVC RR 16, VT 550, FIO2 40%, PEEP +0. Patient intubated with a 7.5 ETT with a 25 cm lip line, secured with anchorfast. Patient currently obtundent. Suctioned small amount of thin tse/ white secretions. Vent plugged into red outlet. Alarms are on and audible. Will continue to monitor closely throughout the day.
--- NOTE | 2019-12-05 07:18 | General Progress Note ---
Assessment/Plan Status: stable, unchanged Assessment/Plan: Assessment/Plan: Assessment/Plan 1. atrial fibrillation. 2. Tachycardia. 3. Renal insufficiency. 4. Obstructive uropathy. 5. hypertension. 6. Prostatic hypertrophy. 7. History of latent tuberculosis. 8. History of heart failure. 9. History of hepatitis C infection. 10. Respiratory failure with respiratory acidosis, now on vent 11. UGIB 12. Proximal stomach ulcer and GIB, adherent clot, difficult visualization Recommendations TF - Nephro at 40 cc per NGT Daily CBC PPI Carafate>>will dc Elevate HOB fu H&H repeat EGD if rebleeds Subjective ROS Limited/Unobtainable: No Allergies: Coded Allergies: LISINOPRIL (Verified Allergy, Unknown, 11/21/19) SIMVASTATIN (Verified Allergy, Unknown, 11/21/19) TERAZOSIN (Verified Allergy, Unknown, 11/21/19) Subjective fever over night Objective Last 24 Hour Vital Signs Date Time Temp Pulse Resp B/P (MAP) Pulse Ox O2 Delivery O2 Flow Rate FiO2 12/05/19 07:00 82 23 121/69 (86) 98 12/05/19 07:00 22 Mechanical Ventilator 40 12/05/19 06:30 80 22 123/75 (91) 97 12/05/19 06:23 20 20 12/05/19 06:00 98.8 90 21 139/79 (99) 99 12/05/19 06:00 22 Mechanical Ventilator 40 12/05/19 05:48 150/94 12/05/19 05:30 85 16 40 12/05/19 05:30 91 19 150/94 (112) 98 12/05/19 05:00 18 Mechanical Ventilator 50 12/05/19 05:00 92 24 155/88 (110) 98 12/05/19 04:30 101 30 149/83 (105) 99 12/05/19 04:00 92 12/05/19 04:00 35 12/05/19 04:00 19 Mechanical Ventilator 50 12/05/19 04:00 99.3 90 17 149/90 (109) 98 12/05/19 04:00 Mechanical Ventilator Mechanical Ventilator Mechanical Ventilator Mechanical Ventilator 12/05/19 03:34 99.3 12/05/19 03:30 110 25 177/109 (131) 99 12/05/19 03:30 86 16 40 12/05/19 03:00 100.0 91 22 162/96 (118) 98 12/05/19 03:00 18 Mechanical Ventilator 40 12/05/19 02:00 83 21 155/80 (105) 98 12/05/19 02:00 16 Mechanical Ventilator 40 12/05/19 01:30 82 20 154/85 (108) 98 12/05/19 01:00 18 Mechanical Ventilator 40 12/05/19 01:00 80 19 151/81 (104) 98 12/05/19 00:52 80 16 40 12/05/19 00:30 82 25 137/70 (92) 99 12/05/19 00:00 35 12/05/19 00:00 Mechanical Ventilator Mechanical Ventilator Mechanical Ventilator Mechanical Ventilator 12/05/19 00:00 93 12/05/19 00:00 22 Mechanical Ventilator 40 12/05/19 00:00 99.7 92 25 151/92 (111) 100 12/04/19 23:30 76 16 40 12/04/19 23:30 83 27 169/100 (123) 100 12/04/19 23:00 83 20 158/100 (119) 100 12/04/19 22:30 79 25 145/80 (101) 100 12/04/19 22:00 16 Mechanical Ventilator 40 12/04/19 22:00 79 16 133/79 (97) 100 12/04/19 21:30 100 18 40 12/04/19 21:30 94 22 175/94 (121) 99 12/04/19 21:24 160/96 12/04/19 21:24 92 160/96 12/04/19 21:00 96 21 160/96 (117) 100 12/04/19 21:00 22 Mechanical Ventilator 40 12/04/19 20:30 93 28 161/95 (117) 99 12/04/19 20:00 35 12/04/19 20:00 Mechanical Ventilator Mechanical Ventilator Mechanical Ventilator Mechanical Ventilator 12/04/19 20:00 24 Mechanical Ventilator 40 12/04/19 20:00 79 12/04/19 20:00 99.5 93 27 154/98 (116) 97 12/04/19 19:30 91 24 157/89 (111) 100 12/04/19 19:30 101 20 40 12/04/19 19:00 92 19 138/92 (107) 100 12/04/19 19:00 19 Mechanical Ventilator 40 12/04/19 18:30 97 24 175/100 (125) 100 12/04/19 18:19 96 155/107 12/04/19 18:00 85 19 155/107 (123) 100 12/04/19 18:00 19 Mechanical Ventilator 40 12/04/19 17:30 83 16 156/99 (118) 100 12/04/19 17:00 87 17 152/94 (113) 100 12/04/19 17:00 17 Mechanical Ventilator 40 12/04/19 16:38 94 16 40 12/04/19 16:30 86 16 156/87 (110) 100 12/04/19 16:00 24 Mechanical Ventilator 40 12/04/19 16:00 Mechanical Ventilator Mechanical Ventilator Mechanical Ventilator Mechanical Ventilator 12/04/19 16:00 90 12/04/19 16:00 98.5 92 24 141/96 (111) 94 12/04/19 15:30 87 16 145/96 (112) 100 12/04/19 15:00 93 18 152/90 (110) 100 12/04/19 15:00 18 Mechanical Ventilator 40 12/04/19 14:36 70 16 40 12/04/19 14:30 84 16 135/77 (96) 100 12/04/19 14:00 16 Mechanical Ventilator 40 12/04/19 14:00 88 16 135/57 (83) 100 12/04/19 13:43 157/87 12/04/19 13:30 91 27 157/87 (110) 100 12/04/19 13:00 95 28 168/101 (123) 100 12/04/19 13:00 28 Mechanical Ventilator 40 12/04/19 12:48 97 16 40 12/04/19 12:30 95 29 174/94 (120) 100 12/04/19 12:06 83 12/04/19 12:00 27 Mechanical Ventilator 40 12/04/19 12:00 35 12/04/19 12:00 99.1 94 27 167/93 (117) 100 12/04/19 12:00 Mechanical Ventilator Mechanical Ventilator Mechanical Ventilator Mechanical Ventilator 12/04/19 11:30 89 28 100 12/04/19 11:02 86 17 40 12/04/19 11:00 87 29 159/88 (111) 100 12/04/19 11:00 29 Mechanical Ventilator 40 12/04/19 10:30 86 27 149/83 (105) 98 12/04/19 10:29 141/88 12/04/19 10:00 28 Mechanical Ventilator 40 12/04/19 10:00 85 27 141/88 (105) 100 12/04/19 09:30 84 28 145/83 (103) 100 12/04/19 09:25 24 Mechanical Ventilator 40 12/04/19 09:22 82 26 137/89 (105) 100 12/04/19 09:14 91 23 164/98 (120) 100 12/04/19 09:08 103 25 184/105 (131) 100 12/04/19 09:06 88 176/107 12/04/19 09:04 102 24 176/107 (130) 100 12/04/19 09:00 111 23 194/113 (140) 100 12/04/19 09:00 24 Mechanical Ventilator 40 12/04/19 08:58 97 178/101 12/04/19 08:58 178/101 12/04/19 08:43 122 23 40 12/04/19 08:37 12/04/19 08:30 97 25 178/101 (126) 100 12/04/19 08:19 94 25 181/110 (133) 100 12/04/19 08:00 Mechanical Ventilator Mechanical Ventilator Mechanical Ventilator Mechanical Ventilator 12/04/19 08:00 98.8 98 23 187/120 (142) 100 12/04/19 08:00 35 12/04/19 08:00 95 12/04/19 08:00 25 Mechanical Ventilator 40 12/04/19 07:30 94 24 175/98 (123) 100 Intake and Output 12/04/19 12/05/19 19:00 07:00 Intake Total 803.25666 ml 640 ml Output Total 1430 ml 785 ml Balance -626.19362 ml -145 ml Free Water 40 ml 50 ml IV Total 283.09267 ml 110 ml Tube Feeding 480 ml 480 ml Output Urine Total 730 ml 485 ml Chest Tube Drainage Total 700 ml 300 ml # Bowel Movements 2 Laboratory Tests 12/05/19 04:00: White Blood Count 25.2*H, Red Blood Count 3.03L, Hemoglobin 9.4L, Hematocrit 27.7L, Mean Corpuscular Volume 92, Mean Corpuscular Hemoglobin 31.1H, Mean Corpuscular Hemoglobin Concent 34.0, Red Cell Distribution Width 16.2H, Platelet Count 331, Mean Platelet Volume 4.8L, Neutrophils (%) (Auto) , Lymphocytes (%) (Auto) , Monocytes (%) (Auto) , Eosinophils (%) (Auto) , Basophils (%) (Auto) , Neutrophils % (Manual) [Pending], Lymphocytes % (Manual) [Pending], Platelet Estimate [Pending], Platelet Morphology [Pending], Sodium Level 142, Potassium Level 3.1L, Chloride Level 108H, Carbon Dioxide Level 23, Anion Gap 11, Blood Urea Nitrogen 69H, Creatinine 5.4H, Estimat Glomerular Filtration Rate 12.4, Glucose Level 117H, Uric Acid 9.6H, Calcium Level 8.6, Phosphorus Level 3.4, Magnesium Level 1.9, Total Bilirubin 0.3, Aspartate Amino Transf (AST/SGOT) 16, Alanine Aminotransferase (ALT/SGPT) 10L, Alkaline Phosphatase 62, C-Reactive Protein, Quantitative 11.0H, Pro-B-Type Natriuretic Peptide > 66847E, Total Protein 6.4, Albumin 1.9L, Globulin 4.5, Albumin/ Globulin Ratio 0.4L, Random Amikacin Level [Pending] Height (Feet): 5 Height (Inches): 10.00 Weight (Pounds): 208 General Appearance: lethargic EENT: normal ENT inspection Neck: supple Cardiovascular: tachycardia Respiratory/Chest: decreased breath sounds Abdomen: normal bowel sounds, non tender, soft Extremities: non-tender Hunter Sierra MD Dec 05, 2019 07:18
--- NOTE | 2019-12-05 07:30 | NUR ---
NURSE NOTES: Pt received from [facility]. Pt noted with RASS -2, opens eyes for 5 sec when called by name, unable to follow commands. Pupils are equal and round 2mm bilaterally with sluggish light rxn. Bilat hand noted with 3+ pitting edema. Bilat radial pulses 3+ and dorsalis pedis 2+. Pt noted in Afib to panel monitor. Pt is intubated with 7.5 ETT noted 23 cm at left lip corner, with the following settings: AC 16 TV 550 FiO2 40% without Peep. Bilat upper lung lobes noted with rhonchi and bilat lower lungs noted diminished. Pt has a left nares NGT running Nepro at 40 cc/hr without gastric residuals. Abd is slightly firm, round, and non-tender with active bowel sounds to all quadrants. Pt has a f/c draining yellow urine. Skin alterations noted- pt on MAISHA mattress. Pt has a THAD double lumen PICC running fentanyl drip running 50 mcg/hr. Bilat soft wrist restraints noted, bilat radial pulses palpable and wrist skin intact without redness. SCDs on bilat lower extremities. Pt has a chest tube noted in left lateral chest with dry and intact dressing draining serosanguineous drainage at 20 cm H20 on low continuos suction, no air leak present, clamp at bedside. Bed is in lowest position, alarm on, side rails up x 3, call light within reach. Will continue to monitor.
[2019-12-05] MEDS: fentaNYL Citrate 1000 MCG in NS 100ml IV SCH ×2 (07:52→11:15)
--- NOTE | 2019-12-05 07:53 | NUR ---
RESPIRATORY NOTES: No weaning because patient is sedated.
--- NOTE | 2019-12-05 09:00 | NUR ---
NURSE NOTES: Dr Weston at bedside and made aware of pt's potassium level today of 3.1.
[2019-12-05] MEDS: Meropenem 500 MG in NS 55 ML IVPB SCH ×2 (09:25→20:49)
[2019-12-05] MEDS: Docusate 100mg/10ml Liq NG SCH ×3 (09:25→17:43)
[2019-12-05] MEDS: Pantoprazole Inj IVP SCH ×2 (09:25→20:17)
[2019-12-05] MEDS: Metoprolol Tartrate 50mg tab NG SCH ×2 (09:26→20:17)
--- NOTE | 2019-12-05 10:18 | Pulmonolgy Critical Care Note ---
Critical Care - Asmt/Plan Problems: (1) Acute hypercapnic respiratory failure (2) Paroxysmal A-fib (3) Anemia, chronic renal failure (4) Acute on chronic renal insufficiency (5) Chronic hepatitis (6) Moderate pulmonary arterial systolic hypertension (7) Left ventricular ejection fraction greater than or equal to 40 percent (8) History of hypertension (9) Alzheimer's dementia (10) BPH (benign prostatic hyperplasia) Respiratory: monitor respiratory rate, adjust FIO2, CXR Cardiac: continue to monitor HR/BP Renal: F/U I&O, keep IV fluid, check electrolytes Infectious Disease: check cultures Gastrointestinal: continue feedings/current rate Endocrine: monitor blood sugar Hematologic: monitor H/H, transfuse if hgb<8.5 Neurologic: PRN Ativan, keep patient comfortable Affect: PRN ativan Prophylaxis: Protonix Disposition: keep in ICU Notes Reviewed: valve inserter, cardio, renal Discussed with: nurses, consultants, case investigatorsupermarket manager - Objective Last 24 Hour Vital Signs Date Time Temp Pulse Resp B/P (MAP) Pulse Ox O2 Delivery O2 Flow Rate FiO2 12/05/19 09:26 75 126/86 12/05/19 09:26 74 126/86 12/05/19 08:00 40 12/05/19 08:00 78 12/05/19 08:00 23 Mechanical Ventilator 40 12/05/19 08:00 Mechanical Ventilator Mechanical Ventilator Mechanical Ventilator Mechanical Ventilator 12/05/19 08:00 98.7 73 23 128/82 (97) 98 12/05/19 07:52 23 Mechanical Ventilator 40 12/05/19 07:30 77 17 116/78 (91) 98 12/05/19 07:14 72 16 40 12/05/19 07:00 82 23 121/69 (86) 98 12/05/19 07:00 22 Mechanical Ventilator 40 12/05/19 06:30 80 22 123/75 (91) 97 12/05/19 06:23 20 20 12/05/19 06:00 98.8 90 21 139/79 (99) 99 12/05/19 06:00 22 Mechanical Ventilator 40 12/05/19 05:48 150/94 12/05/19 05:30 85 16 40 12/05/19 05:30 91 19 150/94 (112) 98 12/05/19 05:00 18 Mechanical Ventilator 50 12/05/19 05:00 92 24 155/88 (110) 98 12/05/19 04:30 101 30 149/83 (105) 99 12/05/19 04:00 92 12/05/19 04:00 35 12/05/19 04:00 19 Mechanical Ventilator 50 12/05/19 04:00 99.3 90 17 149/90 (109) 98 12/05/19 04:00 Mechanical Ventilator Mechanical Ventilator Mechanical Ventilator Mechanical Ventilator 12/05/19 03:34 99.3 12/05/19 03:30 110 25 177/109 (131) 99 12/05/19 03:30 86 16 40 12/05/19 03:00 100.0 91 22 162/96 (118) 98 12/05/19 03:00 18 Mechanical Ventilator 40 12/05/19 02:00 83 21 155/80 (105) 98 12/05/19 02:00 16 Mechanical Ventilator 40 12/05/19 01:30 82 20 154/85 (108) 98 12/05/19 01:00 18 Mechanical Ventilator 40 12/05/19 01:00 80 19 151/81 (104) 98 12/05/19 00:52 80 16 40 12/05/19 00:30 82 25 137/70 (92) 99 12/05/19 00:00 35 12/05/19 00:00 Mechanical Ventilator Mechanical Ventilator Mechanical Ventilator Mechanical Ventilator 12/05/19 00:00 93 12/05/19 00:00 22 Mechanical Ventilator 40 12/05/19 00:00 99.7 92 25 151/92 (111) 100 12/04/19 23:30 76 16 40 12/04/19 23:30 83 27 169/100 (123) 100 12/04/19 23:00 83 20 158/100 (119) 100 12/04/19 22:30 79 25 145/80 (101) 100 12/04/19 22:00 16 Mechanical Ventilator 40 12/04/19 22:00 79 16 133/79 (97) 100 12/04/19 21:30 100 18 40 12/04/19 21:30 94 22 175/94 (121) 99 12/04/19 21:24 160/96 12/04/19 21:24 92 160/96 12/04/19 21:00 96 21 160/96 (117) 100 12/04/19 21:00 22 Mechanical Ventilator 40 12/04/19 20:30 93 28 161/95 (117) 99 12/04/19 20:00 35 12/04/19 20:00 Mechanical Ventilator Mechanical Ventilator Mechanical Ventilator Mechanical Ventilator 12/04/19 20:00 24 Mechanical Ventilator 40 12/04/19 20:00 79 12/04/19 20:00 99.5 93 27 154/98 (116) 97 12/04/19 19:30 91 24 157/89 (111) 100 12/04/19 19:30 101 20 40 12/04/19 19:00 92 19 138/92 (107) 100 12/04/19 19:00 19 Mechanical Ventilator 40 12/04/19 18:30 97 24 175/100 (125) 100 12/04/19 18:19 96 155/107 12/04/19 18:00 85 19 155/107 (123) 100 12/04/19 18:00 19 Mechanical Ventilator 40 12/04/19 17:30 83 16 156/99 (118) 100 12/04/19 17:00 87 17 152/94 (113) 100 12/04/19 17:00 17 Mechanical Ventilator 40 12/04/19 16:38 94 16 40 12/04/19 16:30 86 16 156/87 (110) 100 12/04/19 16:00 24 Mechanical Ventilator 40 12/04/19 16:00 Mechanical Ventilator Mechanical Ventilator Mechanical Ventilator Mechanical Ventilator 12/04/19 16:00 90 12/04/19 16:00 98.5 92 24 141/96 (111) 94 12/04/19 15:30 87 16 145/96 (112) 100 12/04/19 15:00 93 18 152/90 (110) 100 12/04/19 15:00 18 Mechanical Ventilator 40 12/04/19 14:36 70 16 40 12/04/19 14:30 84 16 135/77 (96) 100 12/04/19 14:00 16 Mechanical Ventilator 40 12/04/19 14:00 88 16 135/57 (83) 100 12/04/19 13:43 157/87 12/04/19 13:30 91 27 157/87 (110) 100 12/04/19 13:00 95 28 168/101 (123) 100 12/04/19 13:00 28 Mechanical Ventilator 40 12/04/19 12:48 97 16 40 12/04/19 12:30 95 29 174/94 (120) 100 12/04/19 12:06 83 12/04/19 12:00 27 Mechanical Ventilator 40 12/04/19 12:00 35 12/04/19 12:00 99.1 94 27 167/93 (117) 100 12/04/19 12:00 Mechanical Ventilator Mechanical Ventilator Mechanical Ventilator Mechanical Ventilator 12/04/19 11:30 89 28 100 12/04/19 11:02 86 17 40 12/04/19 11:00 87 29 159/88 (111) 100 12/04/19 11:00 29 Mechanical Ventilator 40 12/04/19 10:30 86 27 149/83 (105) 98 12/04/19 10:29 141/88 Status: sedated Condition: critical HEENT: atraumatic Neck: full ROM Lungs: rales, rhonchi Heart: HR/BP stable Abdomen: soft, non-tender Extremities: no C/C/E Decubiti: location Critical Care - Subjective ROS Limited/Unobtainable: Yes Condition: critical EKG Rhythm: Sinus Rhythm FI02: 40 Vent Support Breath Rate: 16 Vent Support Mode: AC Vent Tidal Volume: 550 Sputum Amount: Small PEEP: 0.0 PIP: 28 Tube Feeding Amount: 40 I&O: Intake and Output 12/04/19 12/05/19 18:59 06:59 Intake Total 853.02641 ml 640 ml Output Total 1450 ml 785 ml Balance -596.42687 ml -145 ml Free Water 40 ml 50 ml IV Total 333.45973 ml 110 ml Tube Feeding 480 ml 480 ml Output Urine Total 750 ml 485 ml Chest Tube Drainage Total 700 ml 300 ml # Bowel Movements 2 ET-Tube: 7.5 ET Position: 23 Labs: Laboratory Tests Test 12/05/19 04:00 White Blood Count 25.2 K/UL (4.8-10.8) *H Red Blood Count 3.03 M/UL (4.70-6.10) L Hemoglobin 9.4 G/DL (14.2-18.0) L Hematocrit 27.7 % (42.0-52.0) L Mean Corpuscular Volume 92 FL (80-99) Mean Corpuscular Hemoglobin 31.1 PG (27.0-31.0) H Mean Corpuscular Hemoglobin Concent 34.0 G/DL (32.0-36.0) Red Cell Distribution Width 16.2 % (11.6-14.8) H Platelet Count 331 K/UL (150-450) Mean Platelet Volume 4.8 FL (6.5-10.1) L Neutrophils (%) (Auto) % (45.0-75.0) Lymphocytes (%) (Auto) % (20.0-45.0) Monocytes (%) (Auto) % (1.0-10.0) Eosinophils (%) (Auto) % (0.0-3.0) Basophils (%) (Auto) % (0.0-2.0) Differential Total Cells Counted 100 Neutrophils % (Manual) 95 % (45-75) H Lymphocytes % (Manual) 3 % (20-45) L Monocytes % (Manual) 1 % (1-10) Eosinophils % (Manual) 1 % (0-3) Basophils % (Manual) 0 % (0-2) Band Neutrophils 0 % (0-8) Platelet Estimate Adequate Platelet Morphology Normal Hypochromasia 2+ Anisocytosis 1+ Spherocytes 1+ Sodium Level 142 MMOL/L (136-145) Potassium Level 3.1 MMOL/L (3.5-5.1) L Chloride Level 108 MMOL/L (98-107) H Carbon Dioxide Level 23 MMOL/L (21-32) Anion Gap 11 mmol/L (5-15) Blood Urea Nitrogen 69 mg/dL (7-18) H Creatinine 5.4 MG/DL (0.55-1.30) H Estimat Glomerular Filtration Rate 12.4 mL/min (>60) Glucose Level 117 MG/DL (74-106) H Uric Acid 9.6 MG/DL (2.6-7.2) H Calcium Level 8.6 MG/DL (8.5-10.1) Phosphorus Level 3.4 MG/DL (2.5-4.9) Magnesium Level 1.9 MG/DL (1.8-2.4) Total Bilirubin 0.3 MG/DL (0.2-1.0) Aspartate Amino Transf (AST/SGOT) 16 U/L (15-37) Alanine Aminotransferase (ALT/SGPT) 10 U/L (12-78) L Alkaline Phosphatase 62 U/L (46-116) C-Reactive Protein, Quantitative 11.0 mg/dL (0.00-0.90) H Pro-B-Type Natriuretic Peptide > 95293 pg/mL (0-125) H Total Protein 6.4 G/DL (6.4-8.2) Albumin 1.9 G/DL (3.4-5.0) L Globulin 4.5 g/dL Albumin/Globulin Ratio 0.4 (1.0-2.7) L Random Amikacin Level 9.9 MG/L Susannah Hightower MD Dec 05, 2019 10:18
--- NOTE | 2019-12-05 10:30 | NUR ---
NURSE NOTES: Spoke to Trina from pharmacy, new fentanyl bag is currently being made.
--- NOTE | 2019-12-05 10:45 | NUR ---
NURSE NOTES: Spoke to Trina from pharmacy again, fentanyl bag still being made, she states she will call when it is available.
--- NOTE | 2019-12-05 10:55 | NUR ---
NURSE NOTES: Dr Hightower at bedside assessing pt and discussing plan of care and prognosis over the phone with pt's daughter Paul at this time.
[2019-12-05] MEDS: Nitroglycerin Patch 0.4mg TDERMAL SCH (11:19)
--- NOTE | 2019-12-05 12:00 | NUR ---
NURSE NOTES: Pt repositioned, oral care provided, pt assessed per Obed. No distress note.
--- NOTE | 2019-12-05 12:42 | Nephrology Progress Note ---
Assessment/Plan Problem List: (1) Acute on chronic renal insufficiency Assessment: Serum creatinine leveling off around 5 (2) Acute hypercapnic respiratory failure (3) Anemia in chronic kidney disease (CKD) (4) BPH (benign prostatic hyperplasia) (5) Pneumothorax on left Assessment: Has chest tube Assessment Acute renal failure Possible underlying chronic kidney failure Hyperkalemia Anemia other conditions: (1) Acute hypercapnic respiratory failure (2) Paroxysmal A-fib (3) Anemia, chronic renal failure (4) History of hypertension (5) Alzheimer's dementia (6) Chronic hepatitis (7) BPH (benign prostatic hyperplasia) Plan IV potassium chloride supplement Monitor serum creatinine Patient now on NG feeding Patient was transfused previously. Adjust blood pressure medication Protonix drip to IV every 12 hours Off aspirin Carafate through NG tube Per GI Stop hydration Nitrate Previously: Trial of Zaroxolyn as chest x-ray indicates worsening CHF as needed Monitor intake and output Monitor renal parameters Avoid nephrotoxic's Kidney ultrasound results noted indicative of chronicity 2D echocardiogram result noted ejection fraction 55% Anemia work-up noted Per orders Discussed with Dr. Zaidi Subjective ROS Limited/Unobtainable: Yes Objective Objective Last 24 Hour Vital Signs Date Time Temp Pulse Resp B/P (MAP) Pulse Ox O2 Delivery O2 Flow Rate FiO2 12/05/19 12:30 79 22 163/100 (121) 98 12/05/19 12:00 Mechanical Ventilator Mechanical Ventilator Mechanical Ventilator Mechanical Ventilator 12/05/19 12:00 84 12/05/19 12:00 40 12/05/19 12:00 98.4 83 22 152/95 (114) 97 12/05/19 11:30 72 21 156/95 (115) 98 12/05/19 11:19 147/87 12/05/19 11:15 23 Mechanical Ventilator 40 12/05/19 11:00 20 Mechanical Ventilator 40 12/05/19 11:00 66 22 147/87 (107) 98 12/05/19 10:37 74 16 40 12/05/19 10:30 70 21 142/90 (107) 98 12/05/19 10:00 67 21 150/78 (102) 97 12/05/19 10:00 21 Mechanical Ventilator 40 12/05/19 09:30 74 22 145/94 (111) 97 12/05/19 09:27 66 17 40 12/05/19 09:26 75 126/86 12/05/19 09:26 74 126/86 12/05/19 09:00 74 20 126/86 (99) 98 12/05/19 08:30 80 20 147/96 (113) 98 12/05/19 08:00 40 12/05/19 08:00 78 12/05/19 08:00 23 Mechanical Ventilator 40 12/05/19 08:00 Mechanical Ventilator Mechanical Ventilator Mechanical Ventilator Mechanical Ventilator 12/05/19 08:00 98.7 73 23 128/82 (97) 98 12/05/19 07:52 23 Mechanical Ventilator 40 12/05/19 07:30 77 17 116/78 (91) 98 12/05/19 07:14 72 16 40 12/05/19 07:00 82 23 121/69 (86) 98 12/05/19 07:00 22 Mechanical Ventilator 40 12/05/19 06:30 80 22 123/75 (91) 97 12/05/19 06:23 20 20 12/05/19 06:00 98.8 90 21 139/79 (99) 99 12/05/19 06:00 22 Mechanical Ventilator 40 12/05/19 05:48 150/94 12/05/19 05:30 85 16 40 12/05/19 05:30 91 19 150/94 (112) 98 12/05/19 05:00 18 Mechanical Ventilator 50 12/05/19 05:00 92 24 155/88 (110) 98 12/05/19 04:30 101 30 149/83 (105) 99 12/05/19 04:00 92 12/05/19 04:00 35 12/05/19 04:00 19 Mechanical Ventilator 50 12/05/19 04:00 99.3 90 17 149/90 (109) 98 12/05/19 04:00 Mechanical Ventilator Mechanical Ventilator Mechanical Ventilator Mechanical Ventilator 12/05/19 03:34 99.3 12/05/19 03:30 110 25 177/109 (131) 99 12/05/19 03:30 86 16 40 12/05/19 03:00 100.0 91 22 162/96 (118) 98 12/05/19 03:00 18 Mechanical Ventilator 40 12/05/19 02:00 83 21 155/80 (105) 98 12/05/19 02:00 16 Mechanical Ventilator 40 12/05/19 01:30 82 20 154/85 (108) 98 12/05/19 01:00 18 Mechanical Ventilator 40 12/05/19 01:00 80 19 151/81 (104) 98 12/05/19 00:52 80 16 40 12/05/19 00:30 82 25 137/70 (92) 99 12/05/19 00:00 35 12/05/19 00:00 Mechanical Ventilator Mechanical Ventilator Mechanical Ventilator Mechanical Ventilator 12/05/19 00:00 93 12/05/19 00:00 22 Mechanical Ventilator 40 12/05/19 00:00 99.7 92 25 151/92 (111) 100 12/04/19 23:30 76 16 40 12/04/19 23:30 83 27 169/100 (123) 100 12/04/19 23:00 83 20 158/100 (119) 100 12/04/19 22:30 79 25 145/80 (101) 100 12/04/19 22:00 16 Mechanical Ventilator 40 12/04/19 22:00 79 16 133/79 (97) 100 12/04/19 21:30 100 18 40 12/04/19 21:30 94 22 175/94 (121) 99 12/04/19 21:24 160/96 12/04/19 21:24 92 160/96 12/04/19 21:00 96 21 160/96 (117) 100 12/04/19 21:00 22 Mechanical Ventilator 40 12/04/19 20:30 93 28 161/95 (117) 99 12/04/19 20:00 35 12/04/19 20:00 Mechanical Ventilator Mechanical Ventilator Mechanical Ventilator Mechanical Ventilator 12/04/19 20:00 24 Mechanical Ventilator 40 12/04/19 20:00 79 12/04/19 20:00 99.5 93 27 154/98 (116) 97 12/04/19 19:30 91 24 157/89 (111) 100 12/04/19 19:30 101 20 40 12/04/19 19:00 92 19 138/92 (107) 100 12/04/19 19:00 19 Mechanical Ventilator 40 12/04/19 18:30 97 24 175/100 (125) 100 12/04/19 18:19 96 155/107 12/04/19 18:00 85 19 155/107 (123) 100 12/04/19 18:00 19 Mechanical Ventilator 40 12/04/19 17:30 83 16 156/99 (118) 100 12/04/19 17:00 87 17 152/94 (113) 100 12/04/19 17:00 17 Mechanical Ventilator 40 12/04/19 16:38 94 16 40 12/04/19 16:30 86 16 156/87 (110) 100 12/04/19 16:00 24 Mechanical Ventilator 40 12/04/19 16:00 Mechanical Ventilator Mechanical Ventilator Mechanical Ventilator Mechanical Ventilator 12/04/19 16:00 90 12/04/19 16:00 98.5 92 24 141/96 (111) 94 12/04/19 15:30 87 16 145/96 (112) 100 12/04/19 15:00 93 18 152/90 (110) 100 12/04/19 15:00 18 Mechanical Ventilator 40 12/04/19 14:36 70 16 40 12/04/19 14:30 84 16 135/77 (96) 100 12/04/19 14:00 16 Mechanical Ventilator 40 12/04/19 14:00 88 16 135/57 (83) 100 12/04/19 13:43 157/87 12/04/19 13:30 91 27 157/87 (110) 100 12/04/19 13:00 95 28 168/101 (123) 100 12/04/19 13:00 28 Mechanical Ventilator 40 12/04/19 12:48 97 16 40 Intake and Output 12/04/19 12/05/19 19:00 07:00 Intake Total 803.71111 ml 640 ml Output Total 1430 ml 785 ml Balance -626.49937 ml -145 ml Free Water 40 ml 50 ml IV Total 283.84958 ml 110 ml Tube Feeding 480 ml 480 ml Output Urine Total 730 ml 485 ml Chest Tube Drainage Total 700 ml 300 ml # Bowel Movements 2 Laboratory Tests 12/05/19 04:00: White Blood Count 25.2*H, Red Blood Count 3.03L, Hemoglobin 9.4L, Hematocrit 27.7L, Mean Corpuscular Volume 92, Mean Corpuscular Hemoglobin 31.1H, Mean Corpuscular Hemoglobin Concent 34.0, Red Cell Distribution Width 16.2H, Platelet Count 331, Mean Platelet Volume 4.8L, Neutrophils (%) (Auto) , Lymphocytes (%) (Auto) , Monocytes (%) (Auto) , Eosinophils (%) (Auto) , Basophils (%) (Auto) , Differential Total Cells Counted 100, Neutrophils % ( Manual) 95H, Lymphocytes % (Manual) 3L, Monocytes % (Manual) 1, Eosinophils % ( Manual) 1, Basophils % (Manual) 0, Band Neutrophils 0, Platelet Estimate Adequate, Platelet Morphology Normal, Hypochromasia 2+, Anisocytosis 1+, Spherocytes 1+, Sodium Level 142, Potassium Level 3.1L, Chloride Level 108H, Carbon Dioxide Level 23, Anion Gap 11, Blood Urea Nitrogen 69H, Creatinine 5.4H , Estimat Glomerular Filtration Rate 12.4, Glucose Level 117H, Uric Acid 9.6H, Calcium Level 8.6, Phosphorus Level 3.4, Magnesium Level 1.9, Total Bilirubin 0.3, Aspartate Amino Transf (AST/SGOT) 16, Alanine Aminotransferase (ALT/SGPT) 10L, Alkaline Phosphatase 62, C-Reactive Protein, Quantitative 11.0H, Pro-B- Type Natriuretic Peptide > 31972S, Total Protein 6.4, Albumin 1.9L, Globulin 4.5 , Albumin/Globulin Ratio 0.4L, Random Amikacin Level 9.9 Height (Feet): 5 Height (Inches): 10.00 Weight (Pounds): 208 General Appearance: no apparent distress EENT: other - Intubated and vented Cardiovascular: normal rate Respiratory/Chest: decreased breath sounds Abdomen: distended Objective No change Reynold Ellison MD Dec 05, 2019 12:42
--- NOTE | 2019-12-05 13:08 | Internal Med Progress Note ---
Subjective Date of Service: Dec 05, 2019 Physician Name MarilouAbisai Attending Physician Claude Garza MD Current Medications Medications (Trade) Dose Ordered Sig/Cyndi Route PRN Reason Start Time Stop Time Status Last Admin Dose Admin Acetaminophen (Tylenol) 650 mg Q4H PRN NG Fever 11/21/19 13:00 12/21/19 08:14 12/05/19 03:04 Amikacin Protocol (Amikacin pharmacy to dose) 1 ea DAILY PRN MISC Per rx protocol 11/29/19 15:00 12/29/19 14:59 Amlodipine Besylate (Norvasc) 5 mg BID NG 12/02/19 18:00 12/27/19 12:44 12/05/19 09:26 Chlorhexidine Gluconate (Corrie-Hex 2%) 1 applic DAILY@2000 TOPIC 11/27/19 20:00 02/25/20 19:59 12/04/19 20:00 Clonidine HCl (Catapres Tab) 0.1 mg EVERY 8 HOURS NG 12/04/19 14:00 03/03/20 13:59 12/05/19 05:48 Dextrose (Dextrose 50%) 25 ml Q30M PRN IV Hypoglycemia 11/21/19 08:15 02/19/20 08:14 Dextrose (Dextrose 50%) 50 ml Q30M PRN IV Hypoglycemia 11/21/19 08:15 02/19/20 08:14 Docusate Sodium (Colace) 100 mg THREE TIMES A DAY NG 11/21/19 13:00 12/21/19 12:59 12/05/19 09:25 Fentanyl Citrate 1000 mcg/Sodium Chloride 100 ml @ 0 mls/hr Q24H IV 12/05/19 09:00 12/12/19 08:59 12/05/19 11:15 Hydralazine HCl (Apresoline) 10 mg Q4H PRN IV BP over 160 sys 11/29/19 13:30 02/27/20 13:29 12/04/19 08:58 Lorazepam (Ativan 2mg/ml 1ml) 1 mg Q6HR PRN IV Agitation 12/03/19 20:00 12/10/19 19:59 12/05/19 03:04 Meropenem 500 mg/ Sodium Chloride 55 ml @ 110 mls/hr Q12HR IVPB 12/04/19 09:00 12/07/19 08:59 12/05/19 09:25 Metoprolol Tartrate (Lopressor) 50 mg Q12HR NG 11/28/19 21:00 02/19/20 20:59 12/05/19 09:26 Nitroglycerin (Ntg) 1 patch Q24H TDERMAL 11/22/19 11:00 12/22/19 10:59 12/05/19 11:19 Ondansetron HCl (Zofran) 4 mg Q6H PRN IVP Nausea & Vomiting 11/21/19 08:15 12/21/19 08:14 Pantoprazole (Protonix) 40 mg EVERY 12 HOURS IVP 12/04/19 10:30 01/03/20 10:29 12/05/19 09:25 Polyethylene Glycol (Miralax) 17 gm DAILYPRN PRN NG Constipation 11/21/19 13:00 12/21/19 08:14 Potassium Chloride 100 ml @ 100 mls/hr Q1HR IVPB 12/05/19 13:00 12/05/19 15:59 Allergies: Coded Allergies: LISINOPRIL (Verified Allergy, Unknown, 11/21/19) SIMVASTATIN (Verified Allergy, Unknown, 11/21/19) TERAZOSIN (Verified Allergy, Unknown, 11/21/19) ROS Limited/Unobtainable: Yes Subjective 83 YO M admitted with respiratory failure. Now pneumonia, UTI and sepsis. Cover for Int Med-DR Garza. Intubated and sedated. ICU Objective Last Vital Signs Date Time Temp Pulse Resp B/P (MAP) Pulse Ox O2 Delivery O2 Flow Rate FiO2 12/05/19 12:30 79 22 163/100 (121) 98 12/05/19 12:00 Mechanical Ventilator Mechanical Ventilator Mechanical Ventilator Mechanical Ventilator 12/05/19 12:00 40 12/05/19 12:00 98.4 Laboratory Tests Test 12/05/19 04:00 White Blood Count 25.2 K/UL (4.8-10.8) *H Red Blood Count 3.03 M/UL (4.70-6.10) L Hemoglobin 9.4 G/DL (14.2-18.0) L Hematocrit 27.7 % (42.0-52.0) L Mean Corpuscular Volume 92 FL (80-99) Mean Corpuscular Hemoglobin 31.1 PG (27.0-31.0) H Mean Corpuscular Hemoglobin Concent 34.0 G/DL (32.0-36.0) Red Cell Distribution Width 16.2 % (11.6-14.8) H Platelet Count 331 K/UL (150-450) Mean Platelet Volume 4.8 FL (6.5-10.1) L Neutrophils (%) (Auto) % (45.0-75.0) Lymphocytes (%) (Auto) % (20.0-45.0) Monocytes (%) (Auto) % (1.0-10.0) Eosinophils (%) (Auto) % (0.0-3.0) Basophils (%) (Auto) % (0.0-2.0) Differential Total Cells Counted 100 Neutrophils % (Manual) 95 % (45-75) H Lymphocytes % (Manual) 3 % (20-45) L Monocytes % (Manual) 1 % (1-10) Eosinophils % (Manual) 1 % (0-3) Basophils % (Manual) 0 % (0-2) Band Neutrophils 0 % (0-8) Platelet Estimate Adequate Platelet Morphology Normal Hypochromasia 2+ Anisocytosis 1+ Spherocytes 1+ Sodium Level 142 MMOL/L (136-145) Potassium Level 3.1 MMOL/L (3.5-5.1) L Chloride Level 108 MMOL/L (98-107) H Carbon Dioxide Level 23 MMOL/L (21-32) Anion Gap 11 mmol/L (5-15) Blood Urea Nitrogen 69 mg/dL (7-18) H Creatinine 5.4 MG/DL (0.55-1.30) H Estimat Glomerular Filtration Rate 12.4 mL/min (>60) Glucose Level 117 MG/DL (74-106) H Uric Acid 9.6 MG/DL (2.6-7.2) H Calcium Level 8.6 MG/DL (8.5-10.1) Phosphorus Level 3.4 MG/DL (2.5-4.9) Magnesium Level 1.9 MG/DL (1.8-2.4) Total Bilirubin 0.3 MG/DL (0.2-1.0) Aspartate Amino Transf (AST/SGOT) 16 U/L (15-37) Alanine Aminotransferase (ALT/SGPT) 10 U/L (12-78) L Alkaline Phosphatase 62 U/L (46-116) C-Reactive Protein, Quantitative 11.0 mg/dL (0.00-0.90) H Pro-B-Type Natriuretic Peptide > 43969 pg/mL (0-125) H Total Protein 6.4 G/DL (6.4-8.2) Albumin 1.9 G/DL (3.4-5.0) L Globulin 4.5 g/dL Albumin/Globulin Ratio 0.4 (1.0-2.7) L Random Amikacin Level 9.9 MG/L Intake and Output 12/04/19 12/05/19 19:00 07:00 Intake Total 803.69261 ml 640 ml Output Total 1430 ml 785 ml Balance -626.85846 ml -145 ml Free Water 40 ml 50 ml IV Total 283.51719 ml 110 ml Tube Feeding 480 ml 480 ml Output Urine Total 730 ml 485 ml Chest Tube Drainage Total 700 ml 300 ml # Bowel Movements 2 Objective PHYSICAL EXAMINATION: GENERAL: The patient is well-developed, well-nourished male, who is intubated and sedated in the intensive care unit. HEENT: Eyes, pupils are equal and responsive to light and accommodation. Extraocular movements are intact. NECK: Supple without lymphadenopathy. CHEST: Intubated; Bilateral expiratory air sounds, otherwise clear to auscultation without rales. CARDIOVASCULAR: Regular rhythm and rate. S1 and S2 normal without murmurs, rubs, or gallops. ABDOMEN: Soft, nontender, and nondistended. Positive bowel sounds. No evidence of hepatosplenomegaly. Currently, no rebound or guarding noted. EXTREMITIES: Negative for clubbing, cyanosis, or edema. RECTAL/GENITAL: Not performed. NEUROLOGIC: Cranial nerves II through XII are grossly intact without focal deficits. Motor strength is 5/5 bilaterally. Deep tendon reflexes are 2+ plantar. Assessment/Plan Assessment/Plan ASSESSMENT: This is an 83-year-old male. 1. Respiratory failure. 2. Congestive heart failure. 3. Atrial fibrillation. 4. Altered mental status. 5. Urinary tract infection. 6. Renal failure. 7. Hypertension. 8. Alzheimer's dementia. 9. Benign prostatic hypertrophy. 10. urinary tract infection-ESBL E. Coli and pseudamonas aeruginosa. 11. Sepsis-Staph Warneri 12. pneumonia=pseudamonas aeruginosa 13. Severe anemia TREATMENT: 1. Congestive heart failure. A Cardiology consultation has been obtained with Dr. Vasu Zaidi. We will follow recommendations of Cardiology. The patient is currently receiving intravenous Lasix. 2. Respiratory failure. A Pulmonary consultation has been obtained with Dr. Susannah Hightower. Vent per pulmonary We will follow recommendations of Pulmonary. ABX=meropenem and vanco per ID=Dr Hicks 3. Atrial fibrillation as above. A Cardiology consultation has been obtained with Dr. Vasu Zaidi. 4. Renal failure. A Nephrology consultation has been obtained with Dr. Ellison. We will follow recommendations of Nephrology. 5. Hypertension. The patient is currently hypotensive in the intensive care unit. 6. Alzheimer's dementia. 7. Benign prostatic hypertrophy. 8. ABX = meropenem per ID 9. S/P transfusion 5 units PRBC total Abisai Zamarripa MD Dec 05, 2019 13:08
--- NOTE | 2019-12-05 14:00 | NUR ---
NURSE NOTES: Dr Galarza at bedside assessing pt and made aware of trending down WBC today.
--- NOTE | 2019-12-05 14:20 | Infectious Diseases Prog Note ---
Assessment/Plan Assessment/Plan ASSESSMENT: This is an 83-year-old male. Afebrile Leukocytosis ( 2nd to GI bleed, arrest, pneumothorax) Possible PNA superimposed on CHF exacerbation - 12/02 CXR: Large left pneumothorax. Suspected underlying pulmonary edema. Superimposed infiltrate may be present the right perihilar region. - Respiratory failure: m/l 2/2 CHF, elevated BNP) - Sp Cx PSA Probable UTI - UCX : PSA and ESBL E Coli GPC Bacteremia - BCx 11/21/19 Staph warneri 2/2 sets - BCx 11/22/19 - Neg - 2D Echo : No Veg SP EGD Congestive heart failure. Atrial fibrillation. Altered mental status. Urinary tract infection. Renal failure. Hypertension. Alzheimer's dementia. BPH P: Cont pt on IV Merrem # 12/14 , cont Amikacin # 7/ ( Urine coverage ). extend therapy for now given decompensation and leukocytosis pending repeat cultures. -11/29 SP IV Vancomycin #9 -11/23 Sp Rocephin # 4 Monitor CBC, CMP Monitor CXR Rsp support ICU care chest tube care MINERVA RN Subjective Allergies: Coded Allergies: LISINOPRIL (Verified Allergy, Unknown, 11/21/19) SIMVASTATIN (Verified Allergy, Unknown, 11/21/19) TERAZOSIN (Verified Allergy, Unknown, 11/21/19) Subjective Afebrile but tmax 100 and received tylenol. Leukocytosis better. Minimal secretion Objective Vital Signs Last 24 Hour Vital Signs Date Time Temp Pulse Resp B/P (MAP) Pulse Ox O2 Delivery O2 Flow Rate FiO2 12/05/19 13:23 90 19 40 12/05/19 13:12 159/99 12/05/19 13:00 26 Mechanical Ventilator 40 12/05/19 13:00 96 26 159/99 (119) 99 12/05/19 12:30 79 22 163/100 (121) 98 12/05/19 12:00 Mechanical Ventilator Mechanical Ventilator Mechanical Ventilator Mechanical Ventilator 12/05/19 12:00 84 12/05/19 12:00 40 12/05/19 12:00 22 Mechanical Ventilator 40 12/05/19 12:00 98.4 83 22 152/95 (114) 97 12/05/19 11:30 72 21 156/95 (115) 98 12/05/19 11:19 147/87 12/05/19 11:15 23 Mechanical Ventilator 40 12/05/19 11:00 20 Mechanical Ventilator 40 12/05/19 11:00 66 22 147/87 (107) 98 12/05/19 10:37 74 16 40 12/05/19 10:30 70 21 142/90 (107) 98 12/05/19 10:00 67 21 150/78 (102) 97 12/05/19 10:00 21 Mechanical Ventilator 40 12/05/19 09:30 74 22 145/94 (111) 97 12/05/19 09:27 66 17 40 12/05/19 09:26 75 126/86 12/05/19 09:26 74 126/86 12/05/19 09:00 74 20 126/86 (99) 98 12/05/19 08:30 80 20 147/96 (113) 98 12/05/19 08:00 40 12/05/19 08:00 78 12/05/19 08:00 23 Mechanical Ventilator 40 12/05/19 08:00 Mechanical Ventilator Mechanical Ventilator Mechanical Ventilator Mechanical Ventilator 12/05/19 08:00 98.7 73 23 128/82 (97) 98 12/05/19 07:52 23 Mechanical Ventilator 40 12/05/19 07:30 77 17 116/78 (91) 98 12/05/19 07:14 72 16 40 12/05/19 07:00 82 23 121/69 (86) 98 12/05/19 07:00 22 Mechanical Ventilator 40 12/05/19 06:30 80 22 123/75 (91) 97 12/05/19 06:23 20 20 12/05/19 06:00 98.8 90 21 139/79 (99) 99 12/05/19 06:00 22 Mechanical Ventilator 40 12/05/19 05:48 150/94 12/05/19 05:30 85 16 40 12/05/19 05:30 91 19 150/94 (112) 98 12/05/19 05:00 18 Mechanical Ventilator 50 12/05/19 05:00 92 24 155/88 (110) 98 12/05/19 04:30 101 30 149/83 (105) 99 12/05/19 04:00 92 12/05/19 04:00 35 12/05/19 04:00 19 Mechanical Ventilator 50 12/05/19 04:00 99.3 90 17 149/90 (109) 98 12/05/19 04:00 Mechanical Ventilator Mechanical Ventilator Mechanical Ventilator Mechanical Ventilator 12/05/19 03:34 99.3 12/05/19 03:30 110 25 177/109 (131) 99 12/05/19 03:30 86 16 40 12/05/19 03:00 100.0 91 22 162/96 (118) 98 12/05/19 03:00 18 Mechanical Ventilator 40 12/05/19 02:00 83 21 155/80 (105) 98 12/05/19 02:00 16 Mechanical Ventilator 40 12/05/19 01:30 82 20 154/85 (108) 98 12/05/19 01:00 18 Mechanical Ventilator 40 12/05/19 01:00 80 19 151/81 (104) 98 12/05/19 00:52 80 16 40 12/05/19 00:30 82 25 137/70 (92) 99 12/05/19 00:00 35 12/05/19 00:00 Mechanical Ventilator Mechanical Ventilator Mechanical Ventilator Mechanical Ventilator 12/05/19 00:00 93 12/05/19 00:00 22 Mechanical Ventilator 40 12/05/19 00:00 99.7 92 25 151/92 (111) 100 12/04/19 23:30 76 16 40 12/04/19 23:30 83 27 169/100 (123) 100 12/04/19 23:00 83 20 158/100 (119) 100 12/04/19 22:30 79 25 145/80 (101) 100 12/04/19 22:00 16 Mechanical Ventilator 40 12/04/19 22:00 79 16 133/79 (97) 100 12/04/19 21:30 100 18 40 12/04/19 21:30 94 22 175/94 (121) 99 12/04/19 21:24 160/96 12/04/19 21:24 92 160/96 12/04/19 21:00 96 21 160/96 (117) 100 12/04/19 21:00 22 Mechanical Ventilator 40 12/04/19 20:30 93 28 161/95 (117) 99 12/04/19 20:00 35 12/04/19 20:00 Mechanical Ventilator Mechanical Ventilator Mechanical Ventilator Mechanical Ventilator 12/04/19 20:00 24 Mechanical Ventilator 40 12/04/19 20:00 79 12/04/19 20:00 99.5 93 27 154/98 (116) 97 12/04/19 19:30 91 24 157/89 (111) 100 12/04/19 19:30 101 20 40 12/04/19 19:00 92 19 138/92 (107) 100 12/04/19 19:00 19 Mechanical Ventilator 40 12/04/19 18:30 97 24 175/100 (125) 100 12/04/19 18:19 96 155/107 12/04/19 18:00 85 19 155/107 (123) 100 12/04/19 18:00 19 Mechanical Ventilator 40 12/04/19 17:30 83 16 156/99 (118) 100 12/04/19 17:00 87 17 152/94 (113) 100 12/04/19 17:00 17 Mechanical Ventilator 40 12/04/19 16:38 94 16 40 12/04/19 16:30 86 16 156/87 (110) 100 12/04/19 16:00 24 Mechanical Ventilator 40 12/04/19 16:00 Mechanical Ventilator Mechanical Ventilator Mechanical Ventilator Mechanical Ventilator 12/04/19 16:00 90 12/04/19 16:00 98.5 92 24 141/96 (111) 94 12/04/19 15:30 87 16 145/96 (112) 100 12/04/19 15:00 93 18 152/90 (110) 100 12/04/19 15:00 18 Mechanical Ventilator 40 12/04/19 14:36 70 16 40 12/04/19 14:30 84 16 135/77 (96) 100 Height (Feet): 5 Height (Inches): 10.00 Weight (Pounds): 208 Objective Gen: NAD CV: RRR. no rubs or gallop. Pulm: RRR. equal chest rise. Chest tube. Abd: soft. nondistended Neuro: sedated Laboratory Tests Test 12/05/19 04:00 White Blood Count 25.2 K/UL (4.8-10.8) *H Red Blood Count 3.03 M/UL (4.70-6.10) L Hemoglobin 9.4 G/DL (14.2-18.0) L Hematocrit 27.7 % (42.0-52.0) L Mean Corpuscular Volume 92 FL (80-99) Mean Corpuscular Hemoglobin 31.1 PG (27.0-31.0) H Mean Corpuscular Hemoglobin Concent 34.0 G/DL (32.0-36.0) Red Cell Distribution Width 16.2 % (11.6-14.8) H Platelet Count 331 K/UL (150-450) Mean Platelet Volume 4.8 FL (6.5-10.1) L Neutrophils (%) (Auto) % (45.0-75.0) Lymphocytes (%) (Auto) % (20.0-45.0) Monocytes (%) (Auto) % (1.0-10.0) Eosinophils (%) (Auto) % (0.0-3.0) Basophils (%) (Auto) % (0.0-2.0) Differential Total Cells Counted 100 Neutrophils % (Manual) 95 % (45-75) H Lymphocytes % (Manual) 3 % (20-45) L Monocytes % (Manual) 1 % (1-10) Eosinophils % (Manual) 1 % (0-3) Basophils % (Manual) 0 % (0-2) Band Neutrophils 0 % (0-8) Platelet Estimate Adequate Platelet Morphology Normal Hypochromasia 2+ Anisocytosis 1+ Spherocytes 1+ Sodium Level 142 MMOL/L (136-145) Potassium Level 3.1 MMOL/L (3.5-5.1) L Chloride Level 108 MMOL/L (98-107) H Carbon Dioxide Level 23 MMOL/L (21-32) Anion Gap 11 mmol/L (5-15) Blood Urea Nitrogen 69 mg/dL (7-18) H Creatinine 5.4 MG/DL (0.55-1.30) H Estimat Glomerular Filtration Rate 12.4 mL/min (>60) Glucose Level 117 MG/DL (74-106) H Uric Acid 9.6 MG/DL (2.6-7.2) H Calcium Level 8.6 MG/DL (8.5-10.1) Phosphorus Level 3.4 MG/DL (2.5-4.9) Magnesium Level 1.9 MG/DL (1.8-2.4) Total Bilirubin 0.3 MG/DL (0.2-1.0) Aspartate Amino Transf (AST/SGOT) 16 U/L (15-37) Alanine Aminotransferase (ALT/SGPT) 10 U/L (12-78) L Alkaline Phosphatase 62 U/L (46-116) C-Reactive Protein, Quantitative 11.0 mg/dL (0.00-0.90) H Pro-B-Type Natriuretic Peptide > 20038 pg/mL (0-125) H Total Protein 6.4 G/DL (6.4-8.2) Albumin 1.9 G/DL (3.4-5.0) L Globulin 4.5 g/dL Albumin/Globulin Ratio 0.4 (1.0-2.7) L Random Amikacin Level 9.9 MG/L Current Medications Medications (Trade) Dose Ordered Sig/Cyndi Route PRN Reason Start Time Stop Time Status Last Admin Dose Admin Acetaminophen (Tylenol) 650 mg Q4H PRN NG Fever 11/21/19 13:00 12/21/19 08:14 12/05/19 03:04 Amikacin Protocol (Amikacin pharmacy to dose) 1 ea DAILY PRN MISC Per rx protocol 11/29/19 15:00 12/29/19 14:59 Amlodipine Besylate (Norvasc) 5 mg BID NG 12/02/19 18:00 12/27/19 12:44 12/05/19 09:26 Chlorhexidine Gluconate (Corrie-Hex 2%) 1 applic DAILY@2000 TOPIC 11/27/19 20:00 02/25/20 19:59 12/04/19 20:00 Clonidine HCl (Catapres Tab) 0.1 mg EVERY 8 HOURS NG 12/04/19 14:00 03/03/20 13:59 12/05/19 13:12 Dextrose (Dextrose 50%) 25 ml Q30M PRN IV Hypoglycemia 11/21/19 08:15 02/19/20 08:14 Dextrose (Dextrose 50%) 50 ml Q30M PRN IV Hypoglycemia 11/21/19 08:15 02/19/20 08:14 Docusate Sodium (Colace) 100 mg THREE TIMES A DAY NG 11/21/19 13:00 12/21/19 12:59 12/05/19 13:11 Fentanyl Citrate 1000 mcg/Sodium Chloride 100 ml @ 0 mls/hr Q24H IV 12/05/19 09:00 12/12/19 08:59 12/05/19 11:15 Hydralazine HCl (Apresoline) 10 mg Q4H PRN IV BP over 160 sys 11/29/19 13:30 02/27/20 13:29 12/04/19 08:58 Lorazepam (Ativan 2mg/ml 1ml) 1 mg Q6HR PRN IV Agitation 12/03/19 20:00 12/10/19 19:59 12/05/19 03:04 Meropenem 500 mg/ Sodium Chloride 55 ml @ 110 mls/hr Q12HR IVPB 12/04/19 09:00 12/07/19 08:59 12/05/19 09:25 Metoprolol Tartrate (Lopressor) 50 mg Q12HR NG 11/28/19 21:00 02/19/20 20:59 12/05/19 09:26 Nitroglycerin (Ntg) 1 patch Q24H TDERMAL 11/22/19 11:00 12/22/19 10:59 12/05/19 11:19 Ondansetron HCl (Zofran) 4 mg Q6H PRN IVP Nausea & Vomiting 11/21/19 08:15 12/21/19 08:14 Pantoprazole (Protonix) 40 mg EVERY 12 HOURS IVP 12/04/19 10:30 01/03/20 10:29 12/05/19 09:25 Polyethylene Glycol (Miralax) 17 gm DAILYPRN PRN NG Constipation 11/21/19 13:00 12/21/19 08:14 Potassium Chloride 100 ml @ 100 mls/hr Q1HR IVPB 12/05/19 13:00 12/05/19 15:59 12/05/19 14:17 Rich Albright MD Dec 05, 2019 14:20
--- NOTE | 2019-12-05 15:01 | NUR ---
CASE MANAGEMENT: REVIEW 12/03/2019 SI:S/P LEFT CHEST TUBE IN PLACE -RESOLVED PNEUMOTHORAX S/P CODE BLUE 12/03/19 S/P EMERGENCY EGD 11/29/19 SPUTUM CX (+) PSEUDOMONAS AERUGINOSA GI BLEED . RIGHT PLEURAL EFFUSION . SUBCUTANEOUS EMPHYSEMA ACUTE RESP FAILURE W/ HYPERCAPNIA . UTI 99.4 99 18 150/88 98% ON MECH VENT FIO2 30 LABS: WBC 21.5 H/H 9.5/28 K+ 3.3 BUN 65 CREAT 5.2 IS: IV KCL @100ML/HR XIV MEROPENEM BID IV D5 @25ML/HR IV PROTONIX Q10HRS NORVASC NG QD LOPRESSOR NG Q12H FENTANYL IV PER PARAMETERS REGLAN IV Q8H NTG TD Q24HR CLONIDINE TD QWK SUCRALFATE NG QQID \: INTENSIVE CARE UNIT DCP: [facility] WHEN STABLE PLAN: INTUBATED AND SUDATED UNABLE TO WEAN
--- NOTE | 2019-12-05 15:08 | NUR ---
MANAGER CULINARY NOTE SW spoke w/ pt's daughters Duarte Bolanos and Paul Bullock, requesting to get the copy of healthcare AD from [place]. SW spoke w/ Iva form [place] medical records [phone] [phone] and faxed the release of information form, signed by Dr. Hightower to [phone]. SW received the copy of pt's living will. Pt's daughter, Duarte Bolanos is listed as the healthcare agent. SW forwarded such document to Duarte Bolanos and Paul Bullock as per Duarte's request. Two daughters will get back to this SW once the decision is made. SW placed the documents in the chart.
--- NOTE | 2019-12-05 16:00 | NUR ---
NURSE NOTES: Pt repositioned and oral care provided, no acute distress noted. Dr Zaidi at bedside also assessing pt.
--- NOTE | 2019-12-05 16:39 | Cardiology Progress Note ---
Assessment/Plan Assessment/Plan 1. Permanent versus paroxysmal episodes of atrial fibrillation. 2. Tachycardia. 3. Renal insufficiency. 4. Obstructive uropathy. 5. History of hypertension. 6. Prostatic hypertrophy. 7. History of latent tuberculosis. 8. History of heart failure. 9. History of hepatitis C infection. 10. Respiratory failure with respiratory acidosis, now on vent 11. melanotic stool 12 large gastric clot 13 Cardiopulmonary arrest 12/01-12/02 s/p champagne in ETT ? obstruction in ETT?? 14. PTX cxr personally reviewed tele personally reviewed bp seems ok torp abn likely due to renal insuf off heparin due to gi bleed s/p 3 unit f prbc d/w rn need to be in neg fluid balance rate control with iv bb now seem ok with bp and hr not suer mentally chest tube in place cxr personally reviewed mentation appear poor compared to prior to arrest now not responsive Subjective ROS Limited/Unobtainable: Yes Subjective vent isolation Objective Last 24 Hour Vital Signs Date Time Temp Pulse Resp B/P (MAP) Pulse Ox O2 Delivery O2 Flow Rate FiO2 12/05/19 16:00 40 12/05/19 15:30 80 16 129/83 (98) 97 12/05/19 15:29 77 16 40 12/05/19 15:00 80 16 122/74 (90) 97 12/05/19 15:00 16 Mechanical Ventilator 40 12/05/19 14:30 83 16 131/76 (94) 98 12/05/19 14:00 20 Mechanical Ventilator 40 12/05/19 14:00 80 20 129/89 (102) 98 12/05/19 13:30 90 17 146/87 (106) 100 12/05/19 13:23 90 19 40 12/05/19 13:12 159/99 12/05/19 13:00 26 Mechanical Ventilator 40 12/05/19 13:00 96 26 159/99 (119) 99 12/05/19 12:30 79 22 163/100 (121) 98 12/05/19 12:00 Mechanical Ventilator Mechanical Ventilator Mechanical Ventilator Mechanical Ventilator 12/05/19 12:00 84 12/05/19 12:00 40 12/05/19 12:00 22 Mechanical Ventilator 40 12/05/19 12:00 98.4 83 22 152/95 (114) 97 12/05/19 11:30 72 21 156/95 (115) 98 12/05/19 11:19 147/87 12/05/19 11:15 23 Mechanical Ventilator 40 12/05/19 11:00 20 Mechanical Ventilator 40 12/05/19 11:00 66 22 147/87 (107) 98 12/05/19 10:37 74 16 40 12/05/19 10:30 70 21 142/90 (107) 98 12/05/19 10:00 67 21 150/78 (102) 97 12/05/19 10:00 21 Mechanical Ventilator 40 12/05/19 09:30 74 22 145/94 (111) 97 12/05/19 09:27 66 17 40 12/05/19 09:26 75 126/86 12/05/19 09:26 74 126/86 12/05/19 09:00 74 20 126/86 (99) 98 12/05/19 08:30 80 20 147/96 (113) 98 12/05/19 08:00 40 12/05/19 08:00 78 12/05/19 08:00 23 Mechanical Ventilator 40 12/05/19 08:00 Mechanical Ventilator Mechanical Ventilator Mechanical Ventilator Mechanical Ventilator 12/05/19 08:00 98.7 73 23 128/82 (97) 98 12/05/19 07:52 23 Mechanical Ventilator 40 12/05/19 07:30 77 17 116/78 (91) 98 12/05/19 07:14 72 16 40 12/05/19 07:00 82 23 121/69 (86) 98 12/05/19 07:00 22 Mechanical Ventilator 40 12/05/19 06:30 80 22 123/75 (91) 97 12/05/19 06:23 20 20 12/05/19 06:00 98.8 90 21 139/79 (99) 99 12/05/19 06:00 22 Mechanical Ventilator 40 12/05/19 05:48 150/94 12/05/19 05:30 85 16 40 12/05/19 05:30 91 19 150/94 (112) 98 12/05/19 05:00 18 Mechanical Ventilator 50 12/05/19 05:00 92 24 155/88 (110) 98 12/05/19 04:30 101 30 149/83 (105) 99 12/05/19 04:00 92 12/05/19 04:00 35 12/05/19 04:00 19 Mechanical Ventilator 50 12/05/19 04:00 99.3 90 17 149/90 (109) 98 12/05/19 04:00 Mechanical Ventilator Mechanical Ventilator Mechanical Ventilator Mechanical Ventilator 12/05/19 03:34 99.3 12/05/19 03:30 110 25 177/109 (131) 99 12/05/19 03:30 86 16 40 12/05/19 03:00 100.0 91 22 162/96 (118) 98 12/05/19 03:00 18 Mechanical Ventilator 40 12/05/19 02:00 83 21 155/80 (105) 98 12/05/19 02:00 16 Mechanical Ventilator 40 12/05/19 01:30 82 20 154/85 (108) 98 12/05/19 01:00 18 Mechanical Ventilator 40 12/05/19 01:00 80 19 151/81 (104) 98 12/05/19 00:52 80 16 40 12/05/19 00:30 82 25 137/70 (92) 99 12/05/19 00:00 35 12/05/19 00:00 Mechanical Ventilator Mechanical Ventilator Mechanical Ventilator Mechanical Ventilator 12/05/19 00:00 93 12/05/19 00:00 22 Mechanical Ventilator 40 12/05/19 00:00 99.7 92 25 151/92 (111) 100 12/04/19 23:30 76 16 40 12/04/19 23:30 83 27 169/100 (123) 100 12/04/19 23:00 83 20 158/100 (119) 100 12/04/19 22:30 79 25 145/80 (101) 100 12/04/19 22:00 16 Mechanical Ventilator 40 12/04/19 22:00 79 16 133/79 (97) 100 12/04/19 21:30 100 18 40 12/04/19 21:30 94 22 175/94 (121) 99 12/04/19 21:24 160/96 12/04/19 21:24 92 160/96 12/04/19 21:00 96 21 160/96 (117) 100 12/04/19 21:00 22 Mechanical Ventilator 40 12/04/19 20:30 93 28 161/95 (117) 99 12/04/19 20:00 35 12/04/19 20:00 Mechanical Ventilator Mechanical Ventilator Mechanical Ventilator Mechanical Ventilator 12/04/19 20:00 24 Mechanical Ventilator 40 12/04/19 20:00 79 12/04/19 20:00 99.5 93 27 154/98 (116) 97 12/04/19 19:30 91 24 157/89 (111) 100 12/04/19 19:30 101 20 40 12/04/19 19:00 92 19 138/92 (107) 100 12/04/19 19:00 19 Mechanical Ventilator 40 12/04/19 18:30 97 24 175/100 (125) 100 12/04/19 18:19 96 155/107 12/04/19 18:00 85 19 155/107 (123) 100 12/04/19 18:00 19 Mechanical Ventilator 40 12/04/19 17:30 83 16 156/99 (118) 100 12/04/19 17:00 87 17 152/94 (113) 100 12/04/19 17:00 17 Mechanical Ventilator 40 12/04/19 16:38 94 16 40 General Appearance: no apparent distress, on vent, patient on isolation Cardiovascular: normal rate Respiratory/Chest: lungs clear Abdomen: normal bowel sounds, non tender, soft Extremities: no swelling Intake and Output 12/04/19 12/05/19 19:00 07:00 Intake Total 803.18836 ml 640 ml Output Total 1430 ml 785 ml Balance -626.99301 ml -145 ml Free Water 40 ml 50 ml IV Total 283.82770 ml 110 ml Tube Feeding 480 ml 480 ml Output Urine Total 730 ml 485 ml Chest Tube Drainage Total 700 ml 300 ml # Bowel Movements 2 Laboratory Tests Test 12/05/19 04:00 White Blood Count 25.2 K/UL (4.8-10.8) *H Red Blood Count 3.03 M/UL (4.70-6.10) L Hemoglobin 9.4 G/DL (14.2-18.0) L Hematocrit 27.7 % (42.0-52.0) L Mean Corpuscular Volume 92 FL (80-99) Mean Corpuscular Hemoglobin 31.1 PG (27.0-31.0) H Mean Corpuscular Hemoglobin Concent 34.0 G/DL (32.0-36.0) Red Cell Distribution Width 16.2 % (11.6-14.8) H Platelet Count 331 K/UL (150-450) Mean Platelet Volume 4.8 FL (6.5-10.1) L Neutrophils (%) (Auto) % (45.0-75.0) Lymphocytes (%) (Auto) % (20.0-45.0) Monocytes (%) (Auto) % (1.0-10.0) Eosinophils (%) (Auto) % (0.0-3.0) Basophils (%) (Auto) % (0.0-2.0) Differential Total Cells Counted 100 Neutrophils % (Manual) 95 % (45-75) H Lymphocytes % (Manual) 3 % (20-45) L Monocytes % (Manual) 1 % (1-10) Eosinophils % (Manual) 1 % (0-3) Basophils % (Manual) 0 % (0-2) Band Neutrophils 0 % (0-8) Platelet Estimate Adequate Platelet Morphology Normal Hypochromasia 2+ Anisocytosis 1+ Spherocytes 1+ Sodium Level 142 MMOL/L (136-145) Potassium Level 3.1 MMOL/L (3.5-5.1) L Chloride Level 108 MMOL/L (98-107) H Carbon Dioxide Level 23 MMOL/L (21-32) Anion Gap 11 mmol/L (5-15) Blood Urea Nitrogen 69 mg/dL (7-18) H Creatinine 5.4 MG/DL (0.55-1.30) H Estimat Glomerular Filtration Rate 12.4 mL/min (>60) Glucose Level 117 MG/DL (74-106) H Uric Acid 9.6 MG/DL (2.6-7.2) H Calcium Level 8.6 MG/DL (8.5-10.1) Phosphorus Level 3.4 MG/DL (2.5-4.9) Magnesium Level 1.9 MG/DL (1.8-2.4) Total Bilirubin 0.3 MG/DL (0.2-1.0) Aspartate Amino Transf (AST/SGOT) 16 U/L (15-37) Alanine Aminotransferase (ALT/SGPT) 10 U/L (12-78) L Alkaline Phosphatase 62 U/L (46-116) C-Reactive Protein, Quantitative 11.0 mg/dL (0.00-0.90) H Pro-B-Type Natriuretic Peptide > 48813 pg/mL (0-125) H Total Protein 6.4 G/DL (6.4-8.2) Albumin 1.9 G/DL (3.4-5.0) L Globulin 4.5 g/dL Albumin/Globulin Ratio 0.4 (1.0-2.7) L Random Amikacin Level 9.9 MG/L Vasu Zaidi MD Dec 05, 2019 16:39
--- NOTE | 2019-12-05 17:25 | NUR ---
NURSE NOTES:WOUND CARE FOLLOW-UP NOTES:Incontinence Associated dermatitis noted to R and L groin, Scrotum and cleft of buttocks . Affected areas are erythematous and denuded. Both heels are soft but blanchable. No new skin concerns noted.All wound prevention protocols continued as care-planned.
--- NOTE | 2019-12-05 18:00 | NUR ---
NURSE NOTES: Pt repositioned, no acute distress noted, pt remains at RASS of -2 at this time.
--- NOTE | 2019-12-05 19:11 | NUR ---
HAND-OFF: Report given to SYED Panda.
[2019-12-05] MEDS: Dyna-Hex 2% Top Sol 2oz TOPIC SCH (20:17)
--- NOTE | 2019-12-05 20:30 | NUR ---
NURSE NOTES: Repositioned and lavaged. Suctioned patient as patient has thick tenacious secretions. Ora care was provided. Well controlled HR and in Afib rhythm. No BM so far, temperature is 99.3F (Ax). Will continue to monitor.
--- NOTE | 2019-12-05 22:00 | NUR ---
NURSE NOTES: Repositioned patient and flushed NGT with 100ml of h20. Vitals have remained stable and no acute distress at this time.
[2019-12-06] VITALS (46 sets, daily range): BP systolic 108–178; BP diastolic 62–111
--- NOTE | 2019-12-06 | NUR ---
NURSE NOTES: Patient repositioned and oral care provided. Lavaged and suctioned patient. Vitals are stable and patient is afebrile. Will continue to monitor.
--- NOTE | 2019-12-06 02:00 | NUR ---
NURSE NOTES: Repositioned. No BM yet. Central line dressing changed, Afebrile. Chest tube draining yellow fluid. NAD at this time. Will continue to monitor.
[2019-12-06] MEDS: Acetaminophen 650mg/20.3ml NG PRN (02:04)
[2019-12-06] MEDS: LORazepam Inj 2mg/ml 1ml IV PRN (03:07)
--- NOTE | 2019-12-06 04:00 | NUR ---
NURSE NOTES: Repositioned, suctioned and oral care provided, Sponge bath given. Blood drawn, NAD at this time. Will continue to monitor.
[2019-12-06 05:42] LABS: HEMATOCRIT 28.6 % (42.0-52.0); HEMOGLOBIN 9.6 G/DL (14.2-18.0); MEAN CORPUSCULAR VOLUME 93 FL (80-99); PLATELET COUNT 360 K/UL (150-450); RED BLOOD COUNT 3.08 M/UL (4.70-6.10); RED CELL DISTRIBUTION WIDTH 16.6 % (11.6-14.8)
[2019-12-06 05:56] LABS: ALANINE AMINOTRANSFERASE 10 U/L (12-78); ALBUMIN/GLOBULIN RATIO 0.4 (1.0-2.7); ALKALINE PHOSPHATASE 66 U/L (46-116); ANION GAP 11 mmol/L (5-15); ASPARTATE AMINO TRANSFERASE 17 U/L (15-37); BILIRUBIN,TOTAL 0.3 MG/DL (0.2-1.0); BLOOD UREA NITROGEN 70 mg/dL (7-18); CALCIUM 8.9 MG/DL (8.5-10.1); CARBON DIOXIDE 24 MMOL/L (21-32); CHLORIDE 108 MMOL/L (98-107); CREATININE 5.6 MG/DL (0.55-1.30); PHOSPHORUS 3.4 MG/DL (2.5-4.9); POTASSIUM 3.1 MMOL/L (3.5-5.1); SODIUM 143 MMOL/L (136-145)
[2019-12-06 05:59] LABS: WHITE BLOOD COUNT 23.5 K/UL (4.8-10.8)
--- NOTE | 2019-12-06 06:19 | NUR ---
NURSE NOTES: Patient repositioned and oral care provided. Lavaged and suctioned patient. Vitals are stable and patient is afebrile. Will continue to monitor.
--- NOTE | 2019-12-06 07:08 | NUR ---
HAND-OFF: Report given to Melida LYNCH.
--- NOTE | 2019-12-06 07:30 | NUR ---
NURSE NOTES: Received report from SYED Panda. Patient awake and unable to follow commands at this time. Afib 80s on the monitor. ETT 7.5/23cm at lip line. AC 16, VT 550 and FiO2 40%. NGT intact and running with Nepro 40ml/hr. Left chest tube intact and connected to suction chamber with gentle bubbling. Left upper arm PICC intact and clean with TKO at this time. Patiño intact and draining with yellow color urine. Kept dry, clean, comfortable and HOB>30. Will continue plan of care.
[2019-12-06] MEDS: fentaNYL Citrate 1000 MCG in NS 100ml IV SCH (08:22)
[2019-12-06] MEDS: Docusate 100mg/10ml Liq NG SCH ×3 (08:22→17:31)
[2019-12-06] MEDS: Metoprolol Tartrate 50mg tab NG SCH ×2 (08:22→20:44)
[2019-12-06] MEDS: Pantoprazole Inj IVP SCH ×2 (08:23→20:44)
[2019-12-06] MEDS: Meropenem 500 MG in NS 55 ML IVPB SCH ×2 (08:31→20:43)
--- NOTE | 2019-12-06 09:20 | NUR ---
NURSE NOTES: All due meds given as ordered.
--- NOTE | 2019-12-06 10:20 | NUR ---
NURSE NOTES: Repositioned patient and provided oral care.
--- NOTE | 2019-12-06 10:31 | Pulmonolgy Critical Care Note ---
Critical Care - Asmt/Plan Problems: (1) Acute hypercapnic respiratory failure (2) Anemia, chronic renal failure (3) Paroxysmal A-fib (4) Acute on chronic renal insufficiency (5) Chronic hepatitis (6) Moderate pulmonary arterial systolic hypertension (7) Left ventricular ejection fraction greater than or equal to 40 percent (8) History of hypertension (9) Alzheimer's dementia (10) BPH (benign prostatic hyperplasia) Respiratory: monitor respiratory rate, adjust FIO2, CXR Cardiac: continue to monitor HR/BP Renal: F/U I&O Infectious Disease: check cultures Gastrointestinal: continue feedings/current rate Hematologic: monitor H/H Neurologic: PRN Ativan, PRN Morphine Prophylaxis: Protonix, Heparin Time Spent (Minutes): 40 Notes 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, 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, ID Critical Care - Objective Last 24 Hour Vital Signs Date Time Temp Pulse Resp B/P (MAP) Pulse Ox O2 Delivery O2 Flow Rate FiO2 12/06/19 09:00 80 24 153/105 (121) 98 12/06/19 08:52 88 20 40 12/06/19 08:22 20 Mechanical Ventilator 40 12/06/19 08:22 86 151/102 12/06/19 08:22 86 151/102 12/06/19 08:00 75 12/06/19 08:00 40 12/06/19 08:00 Mechanical Ventilator Mechanical Ventilator Mechanical Ventilator Mechanical Ventilator 12/06/19 08:00 97.9 86 19 170/98 (122) 97 12/06/19 07:22 96 21 40 12/06/19 07:00 81 21 143/82 (102) 98 12/06/19 06:30 79 19 139/84 (102) 98 12/06/19 06:30 86 18 12/06/19 06:00 87 21 136/85 (102) 97 12/06/19 05:30 87 20 147/87 (107) 97 12/06/19 05:27 159/80 12/06/19 05:24 79 22 40 12/06/19 05:00 87 20 138/70 (92) 96 12/06/19 04:30 82 16 108/63 (78) 96 12/06/19 04:00 Mechanical Ventilator Mechanical Ventilator Mechanical Ventilator Mechanical Ventilator 12/06/19 04:00 40 12/06/19 04:00 90 12/06/19 04:00 98.8 86 15 115/62 (79) 95 12/06/19 03:30 94 21 159/80 (106) 96 12/06/19 03:08 78 20 40 12/06/19 03:00 126 35 178/111 (133) 97 12/06/19 02:30 123 29 160/90 (113) 99 12/06/19 02:04 176/103 12/06/19 02:00 91 20 155/80 (105) 98 12/06/19 01:30 93 13 145/75 (98) 100 12/06/19 01:28 86 21 40 12/06/19 01:00 85 20 156/104 (121) 98 12/06/19 01:00 24 Mechanical Ventilator 40 12/06/19 00:30 87 20 167/96 (119) 98 12/06/19 00:00 40 12/06/19 00:00 Mechanical Ventilator Mechanical Ventilator Mechanical Ventilator Mechanical Ventilator 12/06/19 00:00 18 Mechanical Ventilator 40 12/06/19 00:00 86 12/06/19 00:00 99.5 83 17 157/87 (110) 99 12/05/19 23:30 86 20 159/95 (116) 99 12/05/19 23:05 79 20 40 12/05/19 23:00 24 Mechanical Ventilator 40 12/05/19 23:00 89 21 163/110 (127) 98 12/05/19 22:30 79 16 155/95 (115) 98 12/05/19 22:00 20 Mechanical Ventilator 40 12/05/19 22:00 77 15 135/80 (98) 98 12/05/19 21:30 85 18 157/86 (109) 97 12/05/19 21:25 80 16 40 12/05/19 21:00 96 19 155/103 (120) 97 12/05/19 21:00 18 Mechanical Ventilator 40 12/05/19 20:49 19 Mechanical Ventilator 40 12/05/19 20:30 102 22 159/108 (125) 98 12/05/19 20:18 162/80 12/05/19 20:17 84 162/80 12/05/19 20:00 99.3 87 21 162/80 (107) 98 12/05/19 20:00 40 12/05/19 20:00 18 Mechanical Ventilator 40 12/05/19 20:00 Mechanical Ventilator Mechanical Ventilator Mechanical Ventilator Mechanical Ventilator 12/05/19 20:00 75 12/05/19 19:30 85 18 158/96 (116) 98 12/05/19 19:30 88 16 40 12/05/19 19:00 86 22 139/87 (104) 98 12/05/19 19:00 22 Mechanical Ventilator 40 12/05/19 18:30 84 25 159/86 (110) 98 12/05/19 18:00 17 Mechanical Ventilator 40 12/05/19 18:00 80 17 151/87 (108) 99 12/05/19 17:43 81 148/94 12/05/19 17:30 81 16 148/94 (112) 99 12/05/19 17:08 76 17 40 12/05/19 17:00 16 Mechanical Ventilator 40 12/05/19 17:00 84 16 158/98 (118) 99 12/05/19 16:30 83 16 148/100 (116) 98 12/05/19 16:00 98.6 78 17 154/104 (121) 98 12/05/19 16:00 40 12/05/19 16:00 82 12/05/19 16:00 17 Mechanical Ventilator 40 12/05/19 16:00 Mechanical Ventilator Mechanical Ventilator Mechanical Ventilator Mechanical Ventilator 12/05/19 15:30 80 16 129/83 (98) 97 12/05/19 15:29 77 16 40 12/05/19 15:00 80 16 122/74 (90) 97 12/05/19 15:00 16 Mechanical Ventilator 40 12/05/19 14:30 83 16 131/76 (94) 98 12/05/19 14:00 20 Mechanical Ventilator 40 12/05/19 14:00 80 20 129/89 (102) 98 12/05/19 13:30 90 17 146/87 (106) 100 12/05/19 13:23 90 19 40 12/05/19 13:12 159/99 12/05/19 13:00 26 Mechanical Ventilator 40 12/05/19 13:00 96 26 159/99 (119) 99 12/05/19 12:30 79 22 163/100 (121) 98 12/05/19 12:00 Mechanical Ventilator Mechanical Ventilator Mechanical Ventilator Mechanical Ventilator 12/05/19 12:00 84 12/05/19 12:00 40 12/05/19 12:00 22 Mechanical Ventilator 40 12/05/19 12:00 98.4 83 22 152/95 (114) 97 12/05/19 11:30 72 21 156/95 (115) 98 12/05/19 11:19 147/87 12/05/19 11:15 23 Mechanical Ventilator 40 12/05/19 11:00 20 Mechanical Ventilator 40 12/05/19 11:00 66 22 147/87 (107) 98 12/05/19 10:37 74 16 40 Status: sedated Condition: critical HEENT: atraumatic Neck: full ROM Lungs: rales, rhonchi Heart: HR/BP stable Abdomen: soft, active bowel sounds Micro: Microbiology Date/Time Source Procedure Growth Status 12/04/19 10:30 Blood Blood Culture - Preliminary NO GROWTH AFTER 24 HOURS Resulted 12/04/19 10:30 Blood Blood Culture - Preliminary NO GROWTH AFTER 24 HOURS Resulted 12/04/19 11:00 Sputum Gram Stain - Final Resulted 12/04/19 11:00 Sputum Culture - Preliminary Gram Negative Bacillus 1 Resulted Critical Care - Subjective ROS Limited/Unobtainable: Yes Condition: critical FI02: 40 Vent Support Breath Rate: 16 Vent Support Mode: AC Vent Tidal Volume: 550 Sputum Amount: Moderate PEEP: 0.0 PIP: 22 Tube Feeding Amount: 40 I&O: Intake and Output 12/05/19 12/06/19 19:00 07:00 Intake Total 829.92 ml 775 ml Output Total 1140 ml 605 ml Balance -310.08 ml 170 ml Free Water 40 ml 150 ml IV Total 309.92 ml 145 ml Tube Feeding 480 ml 480 ml Output Urine Total 1040 ml 605 ml Chest Tube Drainage Total 100 ml # Bowel Movements 2 ET-Tube: 7.5 ET Position: 23 Labs: Laboratory Tests Test 12/06/19 04:00 White Blood Count 23.5 K/UL (4.8-10.8) *H Red Blood Count 3.08 M/UL (4.70-6.10) L Hemoglobin 9.6 G/DL (14.2-18.0) L Hematocrit 28.6 % (42.0-52.0) L Mean Corpuscular Volume 93 FL (80-99) Mean Corpuscular Hemoglobin 31.1 PG (27.0-31.0) H Mean Corpuscular Hemoglobin Concent 33.4 G/DL (32.0-36.0) Red Cell Distribution Width 16.6 % (11.6-14.8) H Platelet Count 360 K/UL (150-450) Mean Platelet Volume 4.9 FL (6.5-10.1) L Neutrophils (%) (Auto) % (45.0-75.0) Lymphocytes (%) (Auto) % (20.0-45.0) Monocytes (%) (Auto) % (1.0-10.0) Eosinophils (%) (Auto) % (0.0-3.0) Basophils (%) (Auto) % (0.0-2.0) Differential Total Cells Counted 100 Neutrophils % (Manual) 93 % (45-75) H Lymphocytes % (Manual) 3 % (20-45) L Monocytes % (Manual) 4 % (1-10) Eosinophils % (Manual) 0 % (0-3) Basophils % (Manual) 0 % (0-2) Band Neutrophils 0 % (0-8) Platelet Estimate Adequate Platelet Morphology Normal Hypochromasia 2+ Anisocytosis 1+ Spherocytes 1+ Sodium Level 143 MMOL/L (136-145) Potassium Level 3.1 MMOL/L (3.5-5.1) L Chloride Level 108 MMOL/L (98-107) H Carbon Dioxide Level 24 MMOL/L (21-32) Anion Gap 11 mmol/L (5-15) Blood Urea Nitrogen 70 mg/dL (7-18) H Creatinine 5.6 MG/DL (0.55-1.30) H Estimat Glomerular Filtration Rate 11.8 mL/min (>60) Glucose Level 109 MG/DL (74-106) H Calcium Level 8.9 MG/DL (8.5-10.1) Phosphorus Level 3.4 MG/DL (2.5-4.9) Magnesium Level 2.0 MG/DL (1.8-2.4) Total Bilirubin 0.3 MG/DL (0.2-1.0) Aspartate Amino Transf (AST/SGOT) 17 U/L (15-37) Alanine Aminotransferase (ALT/SGPT) 10 U/L (12-78) L Alkaline Phosphatase 66 U/L (46-116) Total Protein 6.8 G/DL (6.4-8.2) Albumin 2.0 G/DL (3.4-5.0) L Globulin 4.8 g/dL Albumin/Globulin Ratio 0.4 (1.0-2.7) L Susannah Hightower MD Dec 06, 2019 10:31
--- NOTE | 2019-12-06 10:46 | NUR ---
RADIOLOGY DEPT., CHEST X-RAY DONE.-P.DYE
[2019-12-06] MEDS: Nitroglycerin Patch 0.4mg TDERMAL SCH (11:05)
--- NOTE | 2019-12-06 11:10 | NUR ---
NURSE NOTES: Seen by Dr. Hightower and assessed patient.
--- NOTE | 2019-12-06 11:51 | General Progress Note ---
Assessment/Plan Status: stable, unchanged Assessment/Plan: Assessment/Plan: Assessment/Plan 1. atrial fibrillation. 2. Tachycardia. 3. Renal insufficiency. 4. Obstructive uropathy. 5. hypertension. 6. Prostatic hypertrophy. 7. History of latent tuberculosis. 8. History of heart failure. 9. History of hepatitis C infection. 10. Respiratory failure with respiratory acidosis, now on vent 11. UGIB 12. Proximal stomach ulcer and GIB, adherent clot, difficult visualization Recommendations TF - Nephro at 40 cc per NGT Daily CBC PPI Carafate>>will dc Elevate HOB fu H&H repeat EGD if rebleeds Subjective ROS Limited/Unobtainable: No Allergies: Coded Allergies: LISINOPRIL (Verified Allergy, Unknown, 11/21/19) SIMVASTATIN (Verified Allergy, Unknown, 11/21/19) TERAZOSIN (Verified Allergy, Unknown, 11/21/19) Subjective fever over night Objective Last 24 Hour Vital Signs Date Time Temp Pulse Resp B/P (MAP) Pulse Ox O2 Delivery O2 Flow Rate FiO2 12/06/19 11:05 143/98 12/06/19 11:00 82 25 143/98 (113) 98 12/06/19 10:44 74 22 40 12/06/19 10:30 75 23 148/99 (115) 98 12/06/19 10:00 20 Mechanical Ventilator 40 12/06/19 10:00 77 22 142/81 (101) 97 12/06/19 09:30 71 22 162/87 (112) 97 12/06/19 09:00 20 Mechanical Ventilator 40 12/06/19 09:00 80 24 153/105 (121) 98 12/06/19 08:52 88 20 40 12/06/19 08:30 86 19 170/98 (122) 97 12/06/19 08:22 20 Mechanical Ventilator 40 12/06/19 08:22 86 151/102 12/06/19 08:22 86 151/102 12/06/19 08:00 75 12/06/19 08:00 40 12/06/19 08:00 Mechanical Ventilator Mechanical Ventilator Mechanical Ventilator Mechanical Ventilator 12/06/19 08:00 97.9 86 19 170/98 (122) 97 12/06/19 07:30 82 20 151/102 (118) 98 12/06/19 07:22 96 21 40 12/06/19 07:00 81 21 143/82 (102) 98 12/06/19 06:30 79 19 139/84 (102) 98 12/06/19 06:30 86 18 12/06/19 06:00 87 21 136/85 (102) 97 12/06/19 05:30 87 20 147/87 (107) 97 12/06/19 05:27 159/80 12/06/19 05:24 79 22 40 12/06/19 05:00 87 20 138/70 (92) 96 12/06/19 04:30 82 16 108/63 (78) 96 12/06/19 04:00 Mechanical Ventilator Mechanical Ventilator Mechanical Ventilator Mechanical Ventilator 12/06/19 04:00 40 12/06/19 04:00 90 12/06/19 04:00 98.8 86 15 115/62 (79) 95 12/06/19 03:30 94 21 159/80 (106) 96 12/06/19 03:08 78 20 40 12/06/19 03:00 126 35 178/111 (133) 97 12/06/19 02:30 123 29 160/90 (113) 99 12/06/19 02:04 176/103 12/06/19 02:00 91 20 155/80 (105) 98 12/06/19 01:30 93 13 145/75 (98) 100 12/06/19 01:28 86 21 40 12/06/19 01:00 85 20 156/104 (121) 98 12/06/19 01:00 24 Mechanical Ventilator 40 12/06/19 00:30 87 20 167/96 (119) 98 12/06/19 00:00 40 12/06/19 00:00 Mechanical Ventilator Mechanical Ventilator Mechanical Ventilator Mechanical Ventilator 12/06/19 00:00 18 Mechanical Ventilator 40 12/06/19 00:00 86 12/06/19 00:00 99.5 83 17 157/87 (110) 99 12/05/19 23:30 86 20 159/95 (116) 99 12/05/19 23:05 79 20 40 12/05/19 23:00 24 Mechanical Ventilator 40 12/05/19 23:00 89 21 163/110 (127) 98 12/05/19 22:30 79 16 155/95 (115) 98 12/05/19 22:00 20 Mechanical Ventilator 40 12/05/19 22:00 77 15 135/80 (98) 98 12/05/19 21:30 85 18 157/86 (109) 97 12/05/19 21:25 80 16 40 12/05/19 21:00 96 19 155/103 (120) 97 12/05/19 21:00 18 Mechanical Ventilator 40 12/05/19 20:49 19 Mechanical Ventilator 40 12/05/19 20:30 102 22 159/108 (125) 98 12/05/19 20:18 162/80 12/05/19 20:17 84 162/80 12/05/19 20:00 99.3 87 21 162/80 (107) 98 12/05/19 20:00 40 12/05/19 20:00 18 Mechanical Ventilator 40 12/05/19 20:00 Mechanical Ventilator Mechanical Ventilator Mechanical Ventilator Mechanical Ventilator 12/05/19 20:00 75 12/05/19 19:30 85 18 158/96 (116) 98 12/05/19 19:30 88 16 40 12/05/19 19:00 86 22 139/87 (104) 98 12/05/19 19:00 22 Mechanical Ventilator 40 12/05/19 18:30 84 25 159/86 (110) 98 12/05/19 18:00 17 Mechanical Ventilator 40 12/05/19 18:00 80 17 151/87 (108) 99 12/05/19 17:43 81 148/94 12/05/19 17:30 81 16 148/94 (112) 99 12/05/19 17:08 76 17 40 12/05/19 17:00 16 Mechanical Ventilator 40 12/05/19 17:00 84 16 158/98 (118) 99 12/05/19 16:30 83 16 148/100 (116) 98 12/05/19 16:00 98.6 78 17 154/104 (121) 98 12/05/19 16:00 40 12/05/19 16:00 82 12/05/19 16:00 17 Mechanical Ventilator 40 12/05/19 16:00 Mechanical Ventilator Mechanical Ventilator Mechanical Ventilator Mechanical Ventilator 12/05/19 15:30 80 16 129/83 (98) 97 12/05/19 15:29 77 16 40 12/05/19 15:00 80 16 122/74 (90) 97 12/05/19 15:00 16 Mechanical Ventilator 40 12/05/19 14:30 83 16 131/76 (94) 98 12/05/19 14:00 20 Mechanical Ventilator 40 12/05/19 14:00 80 20 129/89 (102) 98 12/05/19 13:30 90 17 146/87 (106) 100 12/05/19 13:23 90 19 40 12/05/19 13:12 159/99 12/05/19 13:00 26 Mechanical Ventilator 40 12/05/19 13:00 96 26 159/99 (119) 99 12/05/19 12:30 79 22 163/100 (121) 98 12/05/19 12:00 Mechanical Ventilator Mechanical Ventilator Mechanical Ventilator Mechanical Ventilator 12/05/19 12:00 84 12/05/19 12:00 40 12/05/19 12:00 22 Mechanical Ventilator 40 12/05/19 12:00 98.4 83 22 152/95 (114) 97 Intake and Output 12/05/19 12/06/19 19:00 07:00 Intake Total 829.92 ml 775 ml Output Total 1140 ml 605 ml Balance -310.08 ml 170 ml Free Water 40 ml 150 ml IV Total 309.92 ml 145 ml Tube Feeding 480 ml 480 ml Output Urine Total 1040 ml 605 ml Chest Tube Drainage Total 100 ml # Bowel Movements 2 Laboratory Tests 12/06/19 04:00: White Blood Count 23.5*H, Red Blood Count 3.08L, Hemoglobin 9.6L, Hematocrit 28.6L, Mean Corpuscular Volume 93, Mean Corpuscular Hemoglobin 31.1H, Mean Corpuscular Hemoglobin Concent 33.4, Red Cell Distribution Width 16.6H, Platelet Count 360, Mean Platelet Volume 4.9L, Neutrophils (%) (Auto) , Lymphocytes (%) (Auto) , Monocytes (%) (Auto) , Eosinophils (%) (Auto) , Basophils (%) (Auto) , Differential Total Cells Counted 100, Neutrophils % ( Manual) 93H, Lymphocytes % (Manual) 3L, Monocytes % (Manual) 4, Eosinophils % ( Manual) 0, Basophils % (Manual) 0, Band Neutrophils 0, Platelet Estimate Adequate, Platelet Morphology Normal, Hypochromasia 2+, Anisocytosis 1+, Spherocytes 1+, Sodium Level 143, Potassium Level 3.1L, Chloride Level 108H, Carbon Dioxide Level 24, Anion Gap 11, Blood Urea Nitrogen 70H, Creatinine 5.6H , Estimat Glomerular Filtration Rate 11.8, Glucose Level 109H, Calcium Level 8.9 , Phosphorus Level 3.4, Magnesium Level 2.0, Total Bilirubin 0.3, Aspartate Amino Transf (AST/SGOT) 17, Alanine Aminotransferase (ALT/SGPT) 10L, Alkaline Phosphatase 66, Total Protein 6.8, Albumin 2.0L, Globulin 4.8, Albumin/Globulin Ratio 0.4L Height (Feet): 5 Height (Inches): 10.00 Weight (Pounds): 209 General Appearance: no apparent distress EENT: normal ENT inspection Neck: supple Cardiovascular: normal rate Respiratory/Chest: decreased breath sounds Abdomen: normal bowel sounds, non tender, soft Extremities: non-tender Hunter Sierra MD Dec 06, 2019 11:51
--- NOTE | 2019-12-06 12:03 | NUR ---
NURSE NOTES: Repositioned patient. Kept dry, clean and comfortable.
--- NOTE | 2019-12-06 12:54 | Nephrology Progress Note ---
Assessment/Plan Problem List: (1) Acute on chronic renal insufficiency Assessment: Serum creatinine leveling off around 5 (2) Acute hypercapnic respiratory failure (3) Anemia in chronic kidney disease (CKD) (4) BPH (benign prostatic hyperplasia) (5) Pneumothorax on left Assessment: Has chest tube Assessment Acute renal failure Possible underlying chronic kidney failure Hyperkalemia Anemia other conditions: (1) Acute hypercapnic respiratory failure (2) Paroxysmal A-fib (3) Anemia, chronic renal failure (4) History of hypertension (5) Alzheimer's dementia (6) Chronic hepatitis (7) BPH (benign prostatic hyperplasia) Plan IV potassium chloride supplement as needed Monitor serum creatinine, it is rising again Patient now on NG feeding Patient was transfused previously. Adjust blood pressure medication Protonix drip to IV every 12 hours Off aspirin Carafate through NG tube Per GI Stop hydration Nitrate May require hemodialysis treatments at home Previously: Trial of Zaroxolyn as chest x-ray indicates worsening CHF as needed Monitor intake and output Monitor renal parameters Avoid nephrotoxic's Kidney ultrasound results noted indicative of chronicity 2D echocardiogram result noted ejection fraction 55% Anemia work-up noted Per orders Discussed with Dr. Zaidi Subjective ROS Limited/Unobtainable: Yes Objective Objective Last 24 Hour Vital Signs Date Time Temp Pulse Resp B/P (MAP) Pulse Ox O2 Delivery O2 Flow Rate FiO2 12/06/19 12:30 67 16 128/79 (95) 98 12/06/19 12:16 77 20 40 12/06/19 12:00 Mechanical Ventilator Mechanical Ventilator Mechanical Ventilator Mechanical Ventilator 12/06/19 12:00 73 12/06/19 12:00 40 12/06/19 12:00 98.5 76 15 137/92 (107) 98 12/06/19 11:30 78 23 142/84 (103) 98 12/06/19 11:05 143/98 12/06/19 11:00 82 25 143/98 (113) 98 12/06/19 10:44 74 22 40 12/06/19 10:30 75 23 148/99 (115) 98 12/06/19 10:00 20 Mechanical Ventilator 40 12/06/19 10:00 77 22 142/81 (101) 97 12/06/19 09:30 71 22 162/87 (112) 97 12/06/19 09:00 20 Mechanical Ventilator 40 4/2/20 09:00 80 24 153/105 (121) 98 12/06/19 08:52 88 20 40 12/06/19 08:30 86 19 170/98 (122) 97 12/06/19 08:22 20 Mechanical Ventilator 40 12/06/19 08:22 86 151/102 12/06/19 08:22 86 151/102 12/06/19 08:00 75 12/06/19 08:00 40 12/06/19 08:00 Mechanical Ventilator Mechanical Ventilator Mechanical Ventilator Mechanical Ventilator 12/06/19 08:00 97.9 86 19 170/98 (122) 97 12/06/19 07:30 82 20 151/102 (118) 98 12/06/19 07:22 96 21 40 12/06/19 07:00 81 21 143/82 (102) 98 12/06/19 06:30 79 19 139/84 (102) 98 12/06/19 06:30 86 18 12/06/19 06:00 87 21 136/85 (102) 97 12/06/19 05:30 87 20 147/87 (107) 97 12/06/19 05:27 159/80 12/06/19 05:24 79 22 40 12/06/19 05:00 87 20 138/70 (92) 96 12/06/19 04:30 82 16 108/63 (78) 96 12/06/19 04:00 Mechanical Ventilator Mechanical Ventilator Mechanical Ventilator Mechanical Ventilator 12/06/19 04:00 40 12/06/19 04:00 90 12/06/19 04:00 98.8 86 15 115/62 (79) 95 12/06/19 03:30 94 21 159/80 (106) 96 12/06/19 03:08 78 20 40 12/06/19 03:00 126 35 178/111 (133) 97 12/06/19 02:30 123 29 160/90 (113) 99 12/06/19 02:04 176/103 12/06/19 02:00 91 20 155/80 (105) 98 12/06/19 01:30 93 13 145/75 (98) 100 12/06/19 01:28 86 21 40 12/06/19 01:00 85 20 156/104 (121) 98 12/06/19 01:00 24 Mechanical Ventilator 40 12/06/19 00:30 87 20 167/96 (119) 98 12/06/19 00:00 40 12/06/19 00:00 Mechanical Ventilator Mechanical Ventilator Mechanical Ventilator Mechanical Ventilator 12/06/19 00:00 18 Mechanical Ventilator 40 12/06/19 00:00 86 12/06/19 00:00 99.5 83 17 157/87 (110) 99 12/05/19 23:30 86 20 159/95 (116) 99 12/05/19 23:05 79 20 40 12/05/19 23:00 24 Mechanical Ventilator 40 12/05/19 23:00 89 21 163/110 (127) 98 12/05/19 22:30 79 16 155/95 (115) 98 12/05/19 22:00 20 Mechanical Ventilator 40 12/05/19 22:00 77 15 135/80 (98) 98 12/05/19 21:30 85 18 157/86 (109) 97 12/05/19 21:25 80 16 40 12/05/19 21:00 96 19 155/103 (120) 97 12/05/19 21:00 18 Mechanical Ventilator 40 12/05/19 20:49 19 Mechanical Ventilator 40 12/05/19 20:30 102 22 159/108 (125) 98 12/05/19 20:18 162/80 12/05/19 20:17 84 162/80 12/05/19 20:00 99.3 87 21 162/80 (107) 98 12/05/19 20:00 40 12/05/19 20:00 18 Mechanical Ventilator 40 12/05/19 20:00 Mechanical Ventilator Mechanical Ventilator Mechanical Ventilator Mechanical Ventilator 12/05/19 20:00 75 12/05/19 19:30 85 18 158/96 (116) 98 12/05/19 19:30 88 16 40 12/05/19 19:00 86 22 139/87 (104) 98 12/05/19 19:00 22 Mechanical Ventilator 40 12/05/19 18:30 84 25 159/86 (110) 98 12/05/19 18:00 17 Mechanical Ventilator 40 12/05/19 18:00 80 17 151/87 (108) 99 12/05/19 17:43 81 148/94 12/05/19 17:30 81 16 148/94 (112) 99 12/05/19 17:08 76 17 40 12/05/19 17:00 16 Mechanical Ventilator 40 12/05/19 17:00 84 16 158/98 (118) 99 12/05/19 16:30 83 16 148/100 (116) 98 12/05/19 16:00 98.6 78 17 154/104 (121) 98 12/05/19 16:00 40 12/05/19 16:00 82 12/05/19 16:00 17 Mechanical Ventilator 40 12/05/19 16:00 Mechanical Ventilator Mechanical Ventilator Mechanical Ventilator Mechanical Ventilator 12/05/19 15:30 80 16 129/83 (98) 97 12/05/19 15:29 77 16 40 12/05/19 15:00 80 16 122/74 (90) 97 12/05/19 15:00 16 Mechanical Ventilator 40 12/05/19 14:30 83 16 131/76 (94) 98 12/05/19 14:00 20 Mechanical Ventilator 40 12/05/19 14:00 80 20 129/89 (102) 98 12/05/19 13:30 90 17 146/87 (106) 100 12/05/19 13:23 90 19 40 12/05/19 13:12 159/99 12/05/19 13:00 26 Mechanical Ventilator 40 12/05/19 13:00 96 26 159/99 (119) 99 Intake and Output 12/05/19 12/06/19 19:00 07:00 Intake Total 829.92 ml 775 ml Output Total 1140 ml 605 ml Balance -310.08 ml 170 ml Free Water 40 ml 150 ml IV Total 309.92 ml 145 ml Tube Feeding 480 ml 480 ml Output Urine Total 1040 ml 605 ml Chest Tube Drainage Total 100 ml # Bowel Movements 2 Laboratory Tests 12/06/19 04:00: White Blood Count 23.5*H, Red Blood Count 3.08L, Hemoglobin 9.6L, Hematocrit 28.6L, Mean Corpuscular Volume 93, Mean Corpuscular Hemoglobin 31.1H, Mean Corpuscular Hemoglobin Concent 33.4, Red Cell Distribution Width 16.6H, Platelet Count 360, Mean Platelet Volume 4.9L, Neutrophils (%) (Auto) , Lymphocytes (%) (Auto) , Monocytes (%) (Auto) , Eosinophils (%) (Auto) , Basophils (%) (Auto) , Differential Total Cells Counted 100, Neutrophils % ( Manual) 93H, Lymphocytes % (Manual) 3L, Monocytes % (Manual) 4, Eosinophils % ( Manual) 0, Basophils % (Manual) 0, Band Neutrophils 0, Platelet Estimate Adequate, Platelet Morphology Normal, Hypochromasia 2+, Anisocytosis 1+, Spherocytes 1+, Sodium Level 143, Potassium Level 3.1L, Chloride Level 108H, Carbon Dioxide Level 24, Anion Gap 11, Blood Urea Nitrogen 70H, Creatinine 5.6H , Estimat Glomerular Filtration Rate 11.8, Glucose Level 109H, Calcium Level 8.9 , Phosphorus Level 3.4, Magnesium Level 2.0, Total Bilirubin 0.3, Aspartate Amino Transf (AST/SGOT) 17, Alanine Aminotransferase (ALT/SGPT) 10L, Alkaline Phosphatase 66, Total Protein 6.8, Albumin 2.0L, Globulin 4.8, Albumin/Globulin Ratio 0.4L Height (Feet): 5 Height (Inches): 10.00 Weight (Pounds): 209 General Appearance: no apparent distress EENT: other - a Cardiovascular: other - Variable Respiratory/Chest: decreased breath sounds Abdomen: distended Objective No change Reynold Ellison MD Dec 06, 2019 12:54
--- NOTE | 2019-12-06 14:35 | NUR ---
NURSE NOTES: NURSE NOTES: Started 24 Hours urine collection.
[2019-12-06] MEDS ORDERED: D5 1/2NS 1000ml IV ONE (14:52)
[2019-12-06] MEDS ORDERED: Tubing IV Blood Pump IV ONE (14:52)
[2019-12-06] MEDS ORDERED: NS 275ml ONE (14:52)
--- NOTE | 2019-12-06 15:20 | Infectious Diseases Prog Note ---
Assessment/Plan Assessment/Plan ASSESSMENT: This is an 83-year-old male. Afebrile Leukocytosis ( 2nd to GI bleed, arrest, pneumothorax) Possible PNA superimposed on CHF exacerbation - 12/02 CXR: Large left pneumothorax. Suspected underlying pulmonary edema. Superimposed infiltrate may be present the right perihilar region. - Respiratory failure: m/l 2/2 CHF, elevated BNP) - Sp Cx PSA Probable UTI - UCX : PSA and ESBL E Coli GPC Bacteremia - BCx 11/21/19 Staph warneri 2/ sets - BCx 11/22/19 - Neg - 2D Echo : No Veg SP EGD Congestive heart failure. Atrial fibrillation. Altered mental status. Urinary tract infection. Renal failure. Hypertension. Alzheimer's dementia. BPH P: Cont pt on IV Merrem # 13/14, extend therapy for now given decompensation and leukocytosis pending repeat cultures. 12/05 SP amikacin #8 -11/29 SP IV Vancomycin #9 -11/23 Sp Rocephin # 4 Monitor CBC, CMP Monitor CXR Rsp support ICU care chest tube care MINERVA RN Subjective Allergies: Coded Allergies: LISINOPRIL (Verified Allergy, Unknown, 11/21/19) SIMVASTATIN (Verified Allergy, Unknown, 11/21/19) TERAZOSIN (Verified Allergy, Unknown, 11/21/19) Subjective Tmax 99.5 and received tylenol WBC better family meeting tomorrow Objective Vital Signs Last 24 Hour Vital Signs Date Time Temp Pulse Resp B/P (MAP) Pulse Ox O2 Delivery O2 Flow Rate FiO2 12/06/19 15:11 68 16 40 12/06/19 14:30 67 16 125/78 (94) 99 12/06/19 14:00 18 Mechanical Ventilator 40 12/06/19 14:00 67 16 122/71 (88) 99 12/06/19 13:30 67 16 114/75 (88) 99 12/06/19 13:04 145/80 12/06/19 13:00 16 Mechanical Ventilator 40 12/06/19 13:00 74 14 145/80 (101) 98 12/06/19 12:30 67 16 128/79 (95) 98 12/06/19 12:16 77 20 40 12/06/19 12:00 Mechanical Ventilator Mechanical Ventilator Mechanical Ventilator Mechanical Ventilator 12/06/19 12:00 73 12/06/19 12:00 40 12/06/19 12:00 20 Mechanical Ventilator 40 12/06/19 12:00 98.5 76 15 137/92 (107) 98 12/06/19 11:30 78 23 142/84 (103) 98 12/06/19 11:05 143/98 12/06/19 11:00 20 Mechanical Ventilator 40 12/06/19 11:00 82 25 143/98 (113) 98 12/06/19 10:44 74 22 40 12/06/19 10:30 75 23 148/99 (115) 98 12/06/19 10:00 20 Mechanical Ventilator 40 12/06/19 10:00 77 22 142/81 (101) 97 12/06/19 09:30 71 22 162/87 (112) 97 12/06/19 09:00 20 Mechanical Ventilator 40 12/06/19 09:00 80 24 153/105 (121) 98 12/06/19 08:52 88 20 40 12/06/19 08:30 86 19 170/98 (122) 97 12/06/19 08:22 20 Mechanical Ventilator 40 12/06/19 08:22 86 151/102 12/06/19 08:22 86 151/102 12/06/19 08:00 75 12/06/19 08:00 40 12/06/19 08:00 Mechanical Ventilator Mechanical Ventilator Mechanical Ventilator Mechanical Ventilator 12/06/19 08:00 97.9 86 19 170/98 (122) 97 12/06/19 07:30 82 20 151/102 (118) 98 12/06/19 07:22 96 21 40 12/06/19 07:00 81 21 143/82 (102) 98 12/06/19 06:30 79 19 139/84 (102) 98 12/06/19 06:30 86 18 12/06/19 06:00 87 21 136/85 (102) 97 12/06/19 05:30 87 20 147/87 (107) 97 12/06/19 05:27 159/80 12/06/19 05:24 79 22 40 12/06/19 05:00 87 20 138/70 (92) 96 12/06/19 04:30 82 16 108/63 (78) 96 12/06/19 04:00 Mechanical Ventilator Mechanical Ventilator Mechanical Ventilator Mechanical Ventilator 12/06/19 04:00 40 12/06/19 04:00 90 12/06/19 04:00 98.8 86 15 115/62 (79) 95 12/06/19 03:30 94 21 159/80 (106) 96 12/06/19 03:08 78 20 40 12/06/19 03:00 126 35 178/111 (133) 97 12/06/19 02:30 123 29 160/90 (113) 99 12/06/19 02:04 176/103 12/06/19 02:00 91 20 155/80 (105) 98 12/06/19 01:30 93 13 145/75 (98) 100 12/06/19 01:28 86 21 40 12/06/19 01:00 85 20 156/104 (121) 98 12/06/19 01:00 24 Mechanical Ventilator 40 12/06/19 00:30 87 20 167/96 (119) 98 12/06/19 00:00 40 12/06/19 00:00 Mechanical Ventilator Mechanical Ventilator Mechanical Ventilator Mechanical Ventilator 12/06/19 00:00 18 Mechanical Ventilator 40 12/06/19 00:00 86 12/06/19 00:00 99.5 83 17 157/87 (110) 99 12/05/19 23:30 86 20 159/95 (116) 99 12/05/19 23:05 79 20 40 12/05/19 23:00 24 Mechanical Ventilator 40 12/05/19 23:00 89 21 163/110 (127) 98 12/05/19 22:30 79 16 155/95 (115) 98 12/05/19 22:00 20 Mechanical Ventilator 40 12/05/19 22:00 77 15 135/80 (98) 98 12/05/19 21:30 85 18 157/86 (109) 97 12/05/19 21:25 80 16 40 12/05/19 21:00 96 19 155/103 (120) 97 12/05/19 21:00 18 Mechanical Ventilator 40 12/05/19 20:49 19 Mechanical Ventilator 40 12/05/19 20:30 102 22 159/108 (125) 98 12/05/19 20:18 162/80 12/05/19 20:17 84 162/80 12/05/19 20:00 99.3 87 21 162/80 (107) 98 12/05/19 20:00 40 12/05/19 20:00 18 Mechanical Ventilator 40 12/05/19 20:00 Mechanical Ventilator Mechanical Ventilator Mechanical Ventilator Mechanical Ventilator 12/05/19 20:00 75 12/05/19 19:30 85 18 158/96 (116) 98 12/05/19 19:30 88 16 40 12/05/19 19:00 86 22 139/87 (104) 98 12/05/19 19:00 22 Mechanical Ventilator 40 12/05/19 18:30 84 25 159/86 (110) 98 12/05/19 18:00 17 Mechanical Ventilator 40 12/05/19 18:00 80 17 151/87 (108) 99 12/05/19 17:43 81 148/94 12/05/19 17:30 81 16 148/94 (112) 99 12/05/19 17:08 76 17 40 12/05/19 17:00 16 Mechanical Ventilator 40 12/05/19 17:00 84 16 158/98 (118) 99 12/05/19 16:30 83 16 148/100 (116) 98 12/05/19 16:00 98.6 78 17 154/104 (121) 98 12/05/19 16:00 40 12/05/19 16:00 82 12/05/19 16:00 17 Mechanical Ventilator 40 12/05/19 16:00 Mechanical Ventilator Mechanical Ventilator Mechanical Ventilator Mechanical Ventilator 12/05/19 15:30 80 16 129/83 (98) 97 12/05/19 15:29 77 16 40 Height (Feet): 5 Height (Inches): 10.00 Weight (Pounds): 209 Objective Gen: NAD CV: RRR. no rubs or gallop. Pulm: RRR. equal chest rise. Chest tube. Abd: soft. nondistended Neuro: sedated Microbiology Date/Time Source Procedure Growth Status 12/04/19 10:30 Blood Blood Culture - Preliminary NO GROWTH AFTER 24 HOURS Resulted 12/04/19 10:30 Blood Blood Culture - Preliminary NO GROWTH AFTER 24 HOURS Resulted 12/04/19 11:00 Sputum Gram Stain - Final Resulted 12/04/19 11:00 Sputum Culture - Preliminary Gram Negative Bacillus 1 Resulted Laboratory Tests Test 12/06/19 04:00 White Blood Count 23.5 K/UL (4.8-10.8) *H Red Blood Count 3.08 M/UL (4.70-6.10) L Hemoglobin 9.6 G/DL (14.2-18.0) L Hematocrit 28.6 % (42.0-52.0) L Mean Corpuscular Volume 93 FL (80-99) Mean Corpuscular Hemoglobin 31.1 PG (27.0-31.0) H Mean Corpuscular Hemoglobin Concent 33.4 G/DL (32.0-36.0) Red Cell Distribution Width 16.6 % (11.6-14.8) H Platelet Count 360 K/UL (150-450) Mean Platelet Volume 4.9 FL (6.5-10.1) L Neutrophils (%) (Auto) % (45.0-75.0) Lymphocytes (%) (Auto) % (20.0-45.0) Monocytes (%) (Auto) % (1.0-10.0) Eosinophils (%) (Auto) % (0.0-3.0) Basophils (%) (Auto) % (0.0-2.0) Differential Total Cells Counted 100 Neutrophils % (Manual) 93 % (45-75) H Lymphocytes % (Manual) 3 % (20-45) L Monocytes % (Manual) 4 % (1-10) Eosinophils % (Manual) 0 % (0-3) Basophils % (Manual) 0 % (0-2) Band Neutrophils 0 % (0-8) Platelet Estimate Adequate Platelet Morphology Normal Hypochromasia 2+ Anisocytosis 1+ Spherocytes 1+ Sodium Level 143 MMOL/L (136-145) Potassium Level 3.1 MMOL/L (3.5-5.1) L Chloride Level 108 MMOL/L (98-107) H Carbon Dioxide Level 24 MMOL/L (21-32) Anion Gap 11 mmol/L (5-15) Blood Urea Nitrogen 70 mg/dL (7-18) H Creatinine 5.6 MG/DL (0.55-1.30) H Estimat Glomerular Filtration Rate 11.8 mL/min (>60) Glucose Level 109 MG/DL (74-106) H Calcium Level 8.9 MG/DL (8.5-10.1) Phosphorus Level 3.4 MG/DL (2.5-4.9) Magnesium Level 2.0 MG/DL (1.8-2.4) Total Bilirubin 0.3 MG/DL (0.2-1.0) Aspartate Amino Transf (AST/SGOT) 17 U/L (15-37) Alanine Aminotransferase (ALT/SGPT) 10 U/L (12-78) L Alkaline Phosphatase 66 U/L (46-116) Total Protein 6.8 G/DL (6.4-8.2) Albumin 2.0 G/DL (3.4-5.0) L Globulin 4.8 g/dL Albumin/Globulin Ratio 0.4 (1.0-2.7) L Current Medications Medications (Trade) Dose Ordered Sig/Cyndi Route PRN Reason Start Time Stop Time Status Last Admin Dose Admin Acetaminophen (Tylenol) 650 mg Q4H PRN NG Fever 11/21/19 13:00 12/21/19 08:14 12/06/19 02:04 Amikacin Protocol (Amikacin pharmacy to dose) 1 ea DAILY PRN MISC Per rx protocol 11/29/19 15:00 12/29/19 14:59 Amlodipine Besylate (Norvasc) 5 mg BID NG 12/02/19 18:00 12/27/19 12:44 12/06/19 08:22 Chlorhexidine Gluconate (Corrie-Hex 2%) 1 applic DAILY@2000 TOPIC 11/27/19 20:00 02/25/20 19:59 12/05/19 20:17 Clonidine HCl (Catapres Tab) 0.1 mg EVERY 8 HOURS NG 12/04/19 14:00 03/03/20 13:59 12/06/19 13:04 Dextrose (Dextrose 50%) 25 ml Q30M PRN IV Hypoglycemia 11/21/19 08:15 02/19/20 08:14 Dextrose (Dextrose 50%) 50 ml Q30M PRN IV Hypoglycemia 11/21/19 08:15 02/19/20 08:14 Docusate Sodium (Colace) 100 mg THREE TIMES A DAY NG 11/21/19 13:00 12/21/19 12:59 12/06/19 13:04 Fentanyl Citrate 1000 mcg/Sodium Chloride 100 ml @ 0 mls/hr Q24H IV 12/05/19 09:00 12/12/19 08:59 12/06/19 08:22 Hydralazine HCl (Apresoline) 10 mg Q4H PRN IV BP over 160 sys 11/29/19 13:30 02/27/20 13:29 12/06/19 02:04 Lorazepam (Ativan 2mg/ml 1ml) 1 mg Q6HR PRN IV Agitation 12/03/19 20:00 12/10/19 19:59 12/06/19 03:07 Meropenem 500 mg/ Sodium Chloride 55 ml @ 110 mls/hr Q12HR IVPB 12/04/19 09:00 12/07/19 08:59 12/06/19 08:31 Metoprolol Tartrate (Lopressor) 50 mg Q12HR NG 11/28/19 21:00 02/19/20 20:59 12/06/19 08:22 Nitroglycerin (Ntg) 1 patch Q24H TDERMAL 11/22/19 11:00 12/22/19 10:59 12/06/19 11:05 Ondansetron HCl (Zofran) 4 mg Q6H PRN IVP Nausea & Vomiting 11/21/19 08:15 12/21/19 08:14 Pantoprazole (Protonix) 40 mg EVERY 12 HOURS IVP 12/04/19 10:30 01/03/20 10:29 12/06/19 08:23 Polyethylene Glycol (Miralax) 17 gm DAILYPRN PRN NG Constipation 11/21/19 13:00 12/21/19 08:14 Rich Albright MD Dec 06, 2019 15:20
--- NOTE | 2019-12-06 16:20 | Diagnostic Imaging Report ---
Indication: Dyspnea Comparison: 12/04/2019 A single view chest radiograph was obtained. Findings: Pulmonary vascular congestion appears slightly improved. However there is increasing hazy density at the right lung base which may be shifting of a pleural effusion or increase in size of the effusion compared to the prior study. There is a left chest tube which is stable. There is no pneumothorax. The heart remains enlarged. IMPRESSION: Improved pulmonary edema. Increasing versus shifting right pleural effusion
--- NOTE | 2019-12-06 16:35 | NUR ---
NURSE NOTES: Bed bath given.
--- NOTE | 2019-12-06 17:16 | Cardiology Progress Note ---
Assessment/Plan Assessment/Plan 1. Permanent versus paroxysmal episodes of atrial fibrillation. 2. Tachycardia. 3. Renal insufficiency. 4. Obstructive uropathy. 5. History of hypertension. 6. Prostatic hypertrophy. 7. History of latent tuberculosis. 8. History of heart failure. 9. History of hepatitis C infection. 10. Respiratory failure with respiratory acidosis, now on vent 11. melanotic stool 12 large gastric clot 13 Cardiopulmonary arrest 12/01-12/02 s/p champagne in ETT ? obstruction in ETT?? 14. PTX tele personally reviewed bp seems ok torp abn likely due to renal insuf off heparin due to gi bleed s/p 3 unit f prbc d/w rn need to be in neg fluid balance rate control with iv bb now seem ok with bp and hr not suer mentally chest tube in place mentation appear poor per rn dialysis meeting sched for tomorrow for addressing further care Subjective ROS Limited/Unobtainable: Yes Subjective vent isolation Objective Last 24 Hour Vital Signs Date Time Temp Pulse Resp B/P (MAP) Pulse Ox O2 Delivery O2 Flow Rate FiO2 12/06/19 16:49 85 18 40 12/06/19 15:11 68 16 40 12/06/19 15:00 81 16 131/80 (97) 99 12/06/19 14:30 67 16 125/78 (94) 99 12/06/19 14:00 18 Mechanical Ventilator 40 12/06/19 14:00 67 16 122/71 (88) 99 12/06/19 13:30 67 16 114/75 (88) 99 12/06/19 13:04 145/80 12/06/19 13:00 16 Mechanical Ventilator 40 12/06/19 13:00 74 14 145/80 (101) 98 12/06/19 12:30 67 16 128/79 (95) 98 12/06/19 12:16 77 20 40 12/06/19 12:00 Mechanical Ventilator Mechanical Ventilator Mechanical Ventilator Mechanical Ventilator 12/06/19 12:00 73 12/06/19 12:00 40 12/06/19 12:00 20 Mechanical Ventilator 40 12/06/19 12:00 98.5 76 15 137/92 (107) 98 12/06/19 11:30 78 23 142/84 (103) 98 12/06/19 11:05 143/98 12/06/19 11:00 20 Mechanical Ventilator 40 12/06/19 11:00 82 25 143/98 (113) 98 12/06/19 10:44 74 22 40 12/06/19 10:30 75 23 148/99 (115) 98 12/06/19 10:00 20 Mechanical Ventilator 40 12/06/19 10:00 77 22 142/81 (101) 97 12/06/19 09:30 71 22 162/87 (112) 97 12/06/19 09:00 20 Mechanical Ventilator 40 12/06/19 09:00 80 24 153/105 (121) 98 12/06/19 08:52 88 20 40 12/06/19 08:30 86 19 170/98 (122) 97 12/06/19 08:22 20 Mechanical Ventilator 40 12/06/19 08:22 86 151/102 12/06/19 08:22 86 151/102 12/06/19 08:00 75 12/06/19 08:00 40 12/06/19 08:00 Mechanical Ventilator Mechanical Ventilator Mechanical Ventilator Mechanical Ventilator 12/06/19 08:00 97.9 86 19 170/98 (122) 97 12/06/19 07:30 82 20 151/102 (118) 98 12/06/19 07:22 96 21 40 12/06/19 07:00 81 21 143/82 (102) 98 12/06/19 06:30 79 19 139/84 (102) 98 12/06/19 06:30 86 18 12/06/19 06:00 87 21 136/85 (102) 97 12/06/19 05:30 87 20 147/87 (107) 97 12/06/19 05:27 159/80 12/06/19 05:24 79 22 40 12/06/19 05:00 87 20 138/70 (92) 96 12/06/19 04:30 82 16 108/63 (78) 96 12/06/19 04:00 Mechanical Ventilator Mechanical Ventilator Mechanical Ventilator Mechanical Ventilator 12/06/19 04:00 40 12/06/19 04:00 90 12/06/19 04:00 98.8 86 15 115/62 (79) 95 12/06/19 03:30 94 21 159/80 (106) 96 12/06/19 03:08 78 20 40 12/06/19 03:00 126 35 178/111 (133) 97 12/06/19 02:30 123 29 160/90 (113) 99 12/06/19 02:04 176/103 12/06/19 02:00 91 20 155/80 (105) 98 12/06/19 01:30 93 13 145/75 (98) 100 12/06/19 01:28 86 21 40 12/06/19 01:00 85 20 156/104 (121) 98 12/06/19 01:00 24 Mechanical Ventilator 40 12/06/19 00:30 87 20 167/96 (119) 98 12/06/19 00:00 40 12/06/19 00:00 Mechanical Ventilator Mechanical Ventilator Mechanical Ventilator Mechanical Ventilator 12/06/19 00:00 18 Mechanical Ventilator 40 12/06/19 00:00 86 12/06/19 00:00 99.5 83 17 157/87 (110) 99 12/05/19 23:30 86 20 159/95 (116) 99 12/05/19 23:05 79 20 40 12/05/19 23:00 24 Mechanical Ventilator 40 12/05/19 23:00 89 21 163/110 (127) 98 12/05/19 22:30 79 16 155/95 (115) 98 12/05/19 22:00 20 Mechanical Ventilator 40 12/05/19 22:00 77 15 135/80 (98) 98 12/05/19 21:30 85 18 157/86 (109) 97 12/05/19 21:25 80 16 40 12/05/19 21:00 96 19 155/103 (120) 97 12/05/19 21:00 18 Mechanical Ventilator 40 12/05/19 20:49 19 Mechanical Ventilator 40 12/05/19 20:30 102 22 159/108 (125) 98 12/05/19 20:18 162/80 12/05/19 20:17 84 162/80 12/05/19 20:00 99.3 87 21 162/80 (107) 98 12/05/19 20:00 40 12/05/19 20:00 18 Mechanical Ventilator 40 12/05/19 20:00 Mechanical Ventilator Mechanical Ventilator Mechanical Ventilator Mechanical Ventilator 12/05/19 20:00 75 12/05/19 19:30 85 18 158/96 (116) 98 12/05/19 19:30 88 16 40 12/05/19 19:00 86 22 139/87 (104) 98 12/05/19 19:00 22 Mechanical Ventilator 40 12/05/19 18:30 84 25 159/86 (110) 98 12/05/19 18:00 17 Mechanical Ventilator 40 12/05/19 18:00 80 17 151/87 (108) 99 12/05/19 17:43 81 148/94 12/05/19 17:30 81 16 148/94 (112) 99 General Appearance: on vent, patient on isolation Cardiovascular: irregularly irregular Respiratory/Chest: lungs clear Abdomen: normal bowel sounds, non tender, soft Extremities: no swelling Intake and Output 12/05/19 12/06/19 19:00 07:00 Intake Total 829.92 ml 775 ml Output Total 1140 ml 605 ml Balance -310.08 ml 170 ml Free Water 40 ml 150 ml IV Total 309.92 ml 145 ml Tube Feeding 480 ml 480 ml Output Urine Total 1040 ml 605 ml Chest Tube Drainage Total 100 ml # Bowel Movements 2 Laboratory Tests Test 12/06/19 04:00 White Blood Count 23.5 K/UL (4.8-10.8) *H Red Blood Count 3.08 M/UL (4.70-6.10) L Hemoglobin 9.6 G/DL (14.2-18.0) L Hematocrit 28.6 % (42.0-52.0) L Mean Corpuscular Volume 93 FL (80-99) Mean Corpuscular Hemoglobin 31.1 PG (27.0-31.0) H Mean Corpuscular Hemoglobin Concent 33.4 G/DL (32.0-36.0) Red Cell Distribution Width 16.6 % (11.6-14.8) H Platelet Count 360 K/UL (150-450) Mean Platelet Volume 4.9 FL (6.5-10.1) L Neutrophils (%) (Auto) % (45.0-75.0) Lymphocytes (%) (Auto) % (20.0-45.0) Monocytes (%) (Auto) % (1.0-10.0) Eosinophils (%) (Auto) % (0.0-3.0) Basophils (%) (Auto) % (0.0-2.0) Differential Total Cells Counted 100 Neutrophils % (Manual) 93 % (45-75) H Lymphocytes % (Manual) 3 % (20-45) L Monocytes % (Manual) 4 % (1-10) Eosinophils % (Manual) 0 % (0-3) Basophils % (Manual) 0 % (0-2) Band Neutrophils 0 % (0-8) Platelet Estimate Adequate Platelet Morphology Normal Hypochromasia 2+ Anisocytosis 1+ Spherocytes 1+ Sodium Level 143 MMOL/L (136-145) Potassium Level 3.1 MMOL/L (3.5-5.1) L Chloride Level 108 MMOL/L (98-107) H Carbon Dioxide Level 24 MMOL/L (21-32) Anion Gap 11 mmol/L (5-15) Blood Urea Nitrogen 70 mg/dL (7-18) H Creatinine 5.6 MG/DL (0.55-1.30) H Estimat Glomerular Filtration Rate 11.8 mL/min (>60) Glucose Level 109 MG/DL (74-106) H Calcium Level 8.9 MG/DL (8.5-10.1) Phosphorus Level 3.4 MG/DL (2.5-4.9) Magnesium Level 2.0 MG/DL (1.8-2.4) Total Bilirubin 0.3 MG/DL (0.2-1.0) Aspartate Amino Transf (AST/SGOT) 17 U/L (15-37) Alanine Aminotransferase (ALT/SGPT) 10 U/L (12-78) L Alkaline Phosphatase 66 U/L (46-116) Total Protein 6.8 G/DL (6.4-8.2) Albumin 2.0 G/DL (3.4-5.0) L Globulin 4.8 g/dL Albumin/Globulin Ratio 0.4 (1.0-2.7) L Microbiology Date/Time Source Procedure Growth Status 12/04/19 10:30 Blood Blood Culture - Preliminary NO GROWTH AFTER 24 HOURS Resulted 12/04/19 10:30 Blood Blood Culture - Preliminary NO GROWTH AFTER 24 HOURS Resulted 12/04/19 11:00 Sputum Gram Stain - Final Resulted 12/04/19 11:00 Sputum Culture - Preliminary Gram Negative Bacillus 1 Resulted Vasu Zaidi MD Dec 06, 2019 17:16
--- NOTE | 2019-12-06 18:00 | NUR ---
NURSE NOTES: Repositioned patient. Provided oral care. Left chest tube patent, no air leak, tube secured, collection system secured and chest tube out 85ml noted. Kept dry, clean and comfortable.
--- NOTE | 2019-12-06 18:15 | Internal Med Progress Note ---
Subjective Date of Service: Dec 06, 2019 Physician Name MarilouAbisai Attending Physician Claude Garza MD Current Medications Medications (Trade) Dose Ordered Sig/Cyndi Route PRN Reason Start Time Stop Time Status Last Admin Dose Admin Acetaminophen (Tylenol) 650 mg Q4H PRN NG Fever 11/21/19 13:00 12/21/19 08:14 12/06/19 02:04 Amikacin Protocol (Amikacin pharmacy to dose) 1 ea DAILY PRN MISC Per rx protocol 11/29/19 15:00 12/29/19 14:59 Amlodipine Besylate (Norvasc) 5 mg BID NG 12/02/19 18:00 12/27/19 12:44 12/06/19 17:32 Chlorhexidine Gluconate (Corrie-Hex 2%) 1 applic DAILY@2000 TOPIC 11/27/19 20:00 02/25/20 19:59 12/05/19 20:17 Clonidine HCl (Catapres Tab) 0.1 mg EVERY 8 HOURS NG 12/04/19 14:00 03/03/20 13:59 12/06/19 13:04 Dextrose (Dextrose 50%) 25 ml Q30M PRN IV Hypoglycemia 11/21/19 08:15 02/19/20 08:14 Dextrose (Dextrose 50%) 50 ml Q30M PRN IV Hypoglycemia 11/21/19 08:15 02/19/20 08:14 Docusate Sodium (Colace) 100 mg THREE TIMES A DAY NG 11/21/19 13:00 12/21/19 12:59 12/06/19 17:31 Fentanyl Citrate 1000 mcg/Sodium Chloride 100 ml @ 0 mls/hr Q24H IV 12/05/19 09:00 12/12/19 08:59 12/06/19 08:22 Hydralazine HCl (Apresoline) 10 mg Q4H PRN IV BP over 160 sys 11/29/19 13:30 02/27/20 13:29 12/06/19 02:04 Lorazepam (Ativan 2mg/ml 1ml) 1 mg Q6HR PRN IV Agitation 12/03/19 20:00 12/10/19 19:59 12/06/19 03:07 Meropenem 500 mg/ Sodium Chloride 55 ml @ 110 mls/hr Q12HR IVPB 12/04/19 09:00 12/07/19 23:59 12/06/19 08:31 Metoprolol Tartrate (Lopressor) 50 mg Q12HR NG 11/28/19 21:00 02/19/20 20:59 12/06/19 08:22 Nitroglycerin (Ntg) 1 patch Q24H TDERMAL 11/22/19 11:00 12/22/19 10:59 12/06/19 11:05 Ondansetron HCl (Zofran) 4 mg Q6H PRN IVP Nausea & Vomiting 11/21/19 08:15 12/21/19 08:14 Pantoprazole (Protonix) 40 mg EVERY 12 HOURS IVP 12/04/19 10:30 01/03/20 10:29 12/06/19 08:23 Polyethylene Glycol (Miralax) 17 gm DAILYPRN PRN NG Constipation 11/21/19 13:00 12/21/19 08:14 Allergies: Coded Allergies: LISINOPRIL (Verified Allergy, Unknown, 11/21/19) SIMVASTATIN (Verified Allergy, Unknown, 11/21/19) TERAZOSIN (Verified Allergy, Unknown, 11/21/19) ROS Limited/Unobtainable: Yes Subjective 83 YO M admitted with respiratory failure. Now pneumonia, UTI and sepsis. Cover for Int Med-DR Garza. Intubated and sedated. ICU Objective Last Vital Signs Date Time Temp Pulse Resp B/P (MAP) Pulse Ox O2 Delivery O2 Flow Rate FiO2 12/06/19 17:32 76 142/80 12/06/19 17:00 20 99 12/06/19 16:49 40 12/06/19 16:00 Mechanical Ventilator Mechanical Ventilator Mechanical Ventilator Mechanical Ventilator 12/06/19 12:00 98.5 Laboratory Tests Test 12/06/19 04:00 White Blood Count 23.5 K/UL (4.8-10.8) *H Red Blood Count 3.08 M/UL (4.70-6.10) L Hemoglobin 9.6 G/DL (14.2-18.0) L Hematocrit 28.6 % (42.0-52.0) L Mean Corpuscular Volume 93 FL (80-99) Mean Corpuscular Hemoglobin 31.1 PG (27.0-31.0) H Mean Corpuscular Hemoglobin Concent 33.4 G/DL (32.0-36.0) Red Cell Distribution Width 16.6 % (11.6-14.8) H Platelet Count 360 K/UL (150-450) Mean Platelet Volume 4.9 FL (6.5-10.1) L Neutrophils (%) (Auto) % (45.0-75.0) Lymphocytes (%) (Auto) % (20.0-45.0) Monocytes (%) (Auto) % (1.0-10.0) Eosinophils (%) (Auto) % (0.0-3.0) Basophils (%) (Auto) % (0.0-2.0) Differential Total Cells Counted 100 Neutrophils % (Manual) 93 % (45-75) H Lymphocytes % (Manual) 3 % (20-45) L Monocytes % (Manual) 4 % (1-10) Eosinophils % (Manual) 0 % (0-3) Basophils % (Manual) 0 % (0-2) Band Neutrophils 0 % (0-8) Platelet Estimate Adequate Platelet Morphology Normal Hypochromasia 2+ Anisocytosis 1+ Spherocytes 1+ Sodium Level 143 MMOL/L (136-145) Potassium Level 3.1 MMOL/L (3.5-5.1) L Chloride Level 108 MMOL/L (98-107) H Carbon Dioxide Level 24 MMOL/L (21-32) Anion Gap 11 mmol/L (5-15) Blood Urea Nitrogen 70 mg/dL (7-18) H Creatinine 5.6 MG/DL (0.55-1.30) H Estimat Glomerular Filtration Rate 11.8 mL/min (>60) Glucose Level 109 MG/DL (74-106) H Calcium Level 8.9 MG/DL (8.5-10.1) Phosphorus Level 3.4 MG/DL (2.5-4.9) Magnesium Level 2.0 MG/DL (1.8-2.4) Total Bilirubin 0.3 MG/DL (0.2-1.0) Aspartate Amino Transf (AST/SGOT) 17 U/L (15-37) Alanine Aminotransferase (ALT/SGPT) 10 U/L (12-78) L Alkaline Phosphatase 66 U/L (46-116) Total Protein 6.8 G/DL (6.4-8.2) Albumin 2.0 G/DL (3.4-5.0) L Globulin 4.8 g/dL Albumin/Globulin Ratio 0.4 (1.0-2.7) L Microbiology Date/Time Source Procedure Growth Status 12/04/19 10:30 Blood Blood Culture - Preliminary NO GROWTH AFTER 24 HOURS Resulted 12/04/19 10:30 Blood Blood Culture - Preliminary NO GROWTH AFTER 24 HOURS Resulted 12/04/19 11:00 Sputum Gram Stain - Final Resulted 12/04/19 11:00 Sputum Culture - Preliminary Gram Negative Bacillus 1 Resulted Intake and Output 12/05/19 12/06/19 19:00 07:00 Intake Total 829.92 ml 775 ml Output Total 1140 ml 605 ml Balance -310.08 ml 170 ml Free Water 40 ml 150 ml IV Total 309.92 ml 145 ml Tube Feeding 480 ml 480 ml Output Urine Total 1040 ml 605 ml Chest Tube Drainage Total 100 ml # Bowel Movements 2 Objective PHYSICAL EXAMINATION: GENERAL: The patient is well-developed, well-nourished male, who is intubated and sedated in the intensive care unit. HEENT: Eyes, pupils are equal and responsive to light and accommodation. Extraocular movements are intact. NECK: Supple without lymphadenopathy. CHEST: Intubated; Bilateral expiratory air sounds, otherwise clear to auscultation without rales. CARDIOVASCULAR: Regular rhythm and rate. S1 and S2 normal without murmurs, rubs, or gallops. ABDOMEN: Soft, nontender, and nondistended. Positive bowel sounds. No evidence of hepatosplenomegaly. Currently, no rebound or guarding noted. EXTREMITIES: Negative for clubbing, cyanosis, or edema. RECTAL/GENITAL: Not performed. NEUROLOGIC: Cranial nerves II through XII are grossly intact without focal deficits. Motor strength is 5/5 bilaterally. Deep tendon reflexes are 2+ plantar. Assessment/Plan Assessment/Plan ASSESSMENT: This is an 83-year-old male. 1. Respiratory failure. 2. Congestive heart failure. 3. Atrial fibrillation. 4. Altered mental status. 5. Urinary tract infection. 6. Renal failure. 7. Hypertension. 8. Alzheimer's dementia. 9. Benign prostatic hypertrophy. 10. urinary tract infection-ESBL E. Coli and pseudamonas aeruginosa. 11. Sepsis-Staph Warneri 12. pneumonia=pseudamonas aeruginosa 13. Severe anemia 14. Worsening leukocytosis TREATMENT: 1. Congestive heart failure. A Cardiology consultation has been obtained with Dr. Vasu Zaidi. We will follow recommendations of Cardiology. The patient is currently receiving intravenous Lasix. 2. Respiratory failure. A Pulmonary consultation has been obtained with Dr. Susannah Hightower. Vent per pulmonary We will follow recommendations of Pulmonary. ABX=meropenem and vanco per ID=Dr Hicks 3. Atrial fibrillation as above. A Cardiology consultation has been obtained with Dr. Vasu Zaidi. 4. Renal failure. A Nephrology consultation has been obtained with Dr. Ellison. We will follow recommendations of Nephrology. 5. Hypertension. The patient is currently hypotensive in the intensive care unit. 6. Alzheimer's dementia. 7. Benign prostatic hypertrophy. 8. ABX = meropenem per ID 9. S/P transfusion 5 units PRBC total Abisai Zamarripa MD Dec 06, 2019 18:15
--- NOTE | 2019-12-06 19:20 | NUR ---
HAND-OFF: Report given to SYED Cochran. Endorsed plan of care.
--- NOTE | 2019-12-06 19:30 | NUR ---
NURSE NOTES: Patient and report given by SYED Sims. Pt is resting in bed, lightly sedated RASS -2, opens eyes when called by name, unable to follow commands. Pt is intubated with 7.5 ETT noted 23 cm at left lip corner, with the following settings: AC 16 TV 550 FiO2 40%, Peep 0. Pupils are equal and round 3mm bilaterally with sluggish light rxn. Bilateral radial pulses noted. Pt noted in Afib on expense clerk. Bilateral upper lung lobes noted with rhonchi and bilateral lower lungs noted diminished. Pt also has a chest tube noted in left lateral chest with dry and intact dressing draining serosanguineous drainage at 20 cm H20 on continuos suction, no air leak present. Noted left nares NGT and receiving Nepro at 40ml/hr. No residual noted. Noted Patiño draining clear yellow urine. Skin alterations noted, on P200 mattress. Pt has a THAD double lumen PICC running Fentanyl drip running 30 mcg/hr. Bilateral soft wrist restraints noted, bilateral radial pulses palpable and wrist skin intact without redness. SCDs on bilateral lower extremities. Bed is in lowest position, alarm on, side rails up x 2, call light within reach. Will continue to monitor.
[2019-12-06] MEDS: Dyna-Hex 2% Top Sol 2oz TOPIC SCH (20:43)
--- NOTE | 2019-12-06 22:00 | NUR ---
NURSE NOTES: Noted pt is biting on the ETT, drowsy, increased Fentanyl to 50mcg/hr to reach RASS -2. Pt's in no acute distress. Vs stable. Will continue to monitor.
[2019-12-07] VITALS (42 sets, daily range): BP systolic 130–185; BP diastolic 75–119
--- NOTE | 2019-12-07 | NUR ---
NURSE NOTES: Pt's in no acute distress, noted biting on the ETT, increased Fentanyl drip to 60mcg/hr to reach RASS -2. VS stable. Will continue to monitor.
--- NOTE | 2019-12-07 02:00 | NUR ---
NURSE NOTES: Pt's resting in bed, in no acute distress. VS stable. Will continue to monitor.
--- NOTE | 2019-12-07 04:02 | NUR ---
NURSE NOTES: Pt's resting in bed, in no acute distress. VS stable. Turned as scheduled, morning care given. Will continue to monitor.
[2019-12-07 05:27] LABS: HEMATOCRIT 29.4 % (42.0-52.0); HEMOGLOBIN 9.8 G/DL (14.2-18.0); MEAN CORPUSCULAR VOLUME 93 FL (80-99); PLATELET COUNT 404 K/UL (150-450); RED BLOOD COUNT 3.17 M/UL (4.70-6.10); RED CELL DISTRIBUTION WIDTH 16.8 % (11.6-14.8); WHITE BLOOD COUNT 20.1 K/UL (4.8-10.8)
--- NOTE | 2019-12-07 06:00 | NUR ---
NURSE NOTES: Pt's resting in bed, in no acute distress. VS stable. Will continue to monitor.
[2019-12-07 06:15] LABS: ALANINE AMINOTRANSFERASE 9 U/L (12-78); ALBUMIN/GLOBULIN RATIO 0.4 (1.0-2.7); ALKALINE PHOSPHATASE 74 U/L (46-116); ANION GAP 11 mmol/L (5-15); ASPARTATE AMINO TRANSFERASE 16 U/L (15-37); BILIRUBIN,TOTAL 0.3 MG/DL (0.2-1.0); BLOOD UREA NITROGEN 76 mg/dL (7-18); CARBON DIOXIDE 25 MMOL/L (21-32); CHLORIDE 107 MMOL/L (98-107); CREATININE 5.5 MG/DL (0.55-1.30); PHOSPHORUS 3.4 MG/DL (2.5-4.9); POTASSIUM 3.4 MMOL/L (3.5-5.1); SODIUM 143 MMOL/L (136-145)
--- NOTE | 2019-12-07 07:25 | NUR ---
HAND-OFF: Report given to SYED Escobar.
--- NOTE | 2019-12-07 07:26 | NUR ---
NURSE NOTES: Received patient in bed. Asleep, responds to name. On bilateral soft wrist restraints. Folet cath on. ET in place, no respiratory distress. OGT feeding tolerating at this time. Contact isolation observed. Will continue plan of care.
--- NOTE | 2019-12-07 08:10 | NUR ---
NURSE NOTES: Latest ABG result noted. RT/Jayden increased Fio2 to 60%. Left message to Dr. Hightower. Awaiting for call back.
[2019-12-07] MEDS: Docusate 100mg/10ml Liq NG SCH ×2 (08:26→13:02)
[2019-12-07] MEDS: Pantoprazole Inj IVP SCH (08:26)
[2019-12-07] MEDS: Metoprolol Tartrate 50mg tab NG SCH (08:26)
[2019-12-07] MEDS: Meropenem 500 MG in NS 55 ML IVPB SCH (08:27)
[2019-12-07] MEDS: fentaNYL Citrate 1000 MCG in NS 100ml IV SCH (09:01)
--- NOTE | 2019-12-07 09:53 | Nephrology Progress Note ---
Assessment/Plan Problem List: (1) Acute on chronic renal insufficiency Assessment: Serum creatinine leveling off around 5 (2) Acute hypercapnic respiratory failure (3) Anemia in chronic kidney disease (CKD) (4) BPH (benign prostatic hyperplasia) (5) Pneumothorax on left Assessment: Has chest tube Assessment Acute renal failure Possible underlying chronic kidney failure Hyperkalemia Anemia other conditions: (1) Acute hypercapnic respiratory failure (2) Paroxysmal A-fib (3) Anemia, chronic renal failure (4) History of hypertension (5) Alzheimer's dementia (6) Chronic hepatitis (7) BPH (benign prostatic hyperplasia) Plan Do family meeting with wafer fabrication operator for CODE STATUS and guidance regarding further care IV potassium chloride supplement as needed Monitor serum creatinine, it is rising again if remains full code may require hemodialysis Patient now on NG feeding Patient was transfused previously. Adjust blood pressure medication Protonix drip to IV every 12 hours Off aspirin Carafate through NG tube Per GI Stop hydration Nitrate May require hemodialysis treatments at home Previously: Trial of Zaroxolyn as chest x-ray indicates worsening CHF as needed Monitor intake and output Monitor renal parameters Avoid nephrotoxic's Kidney ultrasound results noted indicative of chronicity 2D echocardiogram result noted ejection fraction 55% Anemia work-up noted Per orders Discussed with Dr. Zaidi Subjective ROS Limited/Unobtainable: Yes Objective Objective Last 24 Hour Vital Signs Date Time Temp Pulse Resp B/P (MAP) Pulse Ox O2 Delivery O2 Flow Rate FiO2 12/07/19 09:40 60 12/07/19 09:39 75 16 40 12/07/19 09:01 Endotracheal Tube 60 12/07/19 09:00 97 16 142/103 (116) 99 12/07/19 08:30 107 19 169/100 (123) 99 12/07/19 08:27 112 175/95 12/07/19 08:26 112 175/95 12/07/19 08:01 60 12/07/19 08:00 Mechanical Ventilator Mechanical Ventilator Mechanical Ventilator Mechanical Ventilator 12/07/19 08:00 99.4 112 27 175/95 (121) 95 12/07/19 07:43 91 18 40 12/07/19 07:00 97 25 156/90 (112) 97 12/07/19 07:00 24 Mechanical Ventilator 12/07/19 07:00 98.4 96 25 152/90 (110) 97 12/07/19 06:30 96 24 12/07/19 06:00 105 25 170/96 (120) 96 12/07/19 06:00 22 Mechanical Ventilator 12/07/19 05:53 179/96 12/07/19 05:30 106 23 179/96 (123) 97 12/07/19 05:22 84 18 40 12/07/19 05:00 22 Mechanical Ventilator 12/07/19 05:00 104 22 180/119 (139) 97 12/07/19 04:30 87 18 165/98 (120) 97 12/07/19 04:00 40 12/07/19 04:00 Mechanical Ventilator Mechanical Ventilator Mechanical Ventilator Mechanical Ventilator 12/07/19 04:00 88 12/07/19 04:00 102 25 174/109 (130) 97 12/07/19 04:00 24 Mechanical Ventilator 12/07/19 03:30 94 23 163/106 (125) 97 12/07/19 03:00 90 20 175/109 (131) 96 12/07/19 03:00 25 Mechanical Ventilator 12/07/19 02:38 83 18 40 12/07/19 02:30 84 20 169/103 (125) 97 12/07/19 02:00 74 17 157/86 (109) 98 12/07/19 01:30 75 16 163/90 (114) 98 12/07/19 01:00 81 19 148/96 (113) 98 12/07/19 01:00 20 Mechanical Ventilator 12/07/19 00:33 75 16 40 12/07/19 00:30 72 16 143/76 (98) 99 12/07/19 00:00 Mechanical Ventilator Mechanical Ventilator Mechanical Ventilator Mechanical Ventilator 12/07/19 00:00 86 25 161/104 (123) 97 12/07/19 00:00 24 Mechanical Ventilator 12/07/19 00:00 40 12/07/19 00:00 70 12/06/19 23:20 79 17 40 12/06/19 23:00 Mechanical Ventilator 12/06/19 23:00 84 25 151/80 (103) 98 12/06/19 22:45 161/103 12/06/19 22:30 81 17 161/103 (122) 98 12/06/19 22:00 22 Mechanical Ventilator 12/06/19 22:00 83 23 152/86 (108) 98 12/06/19 21:30 81 23 159/101 (120) 98 12/06/19 21:20 84 19 40 12/06/19 21:00 81 16 166/88 (114) 99 12/06/19 21:00 22 Mechanical Ventilator 12/06/19 20:44 90 159/87 12/06/19 20:30 84 22 159/87 (111) 98 12/06/19 20:00 Mechanical Ventilator Mechanical Ventilator Mechanical Ventilator Mechanical Ventilator 12/06/19 20:00 40 12/06/19 20:00 98.4 82 22 149/90 (109) 98 12/06/19 20:00 84 12/06/19 20:00 Mechanical Ventilator 12/06/19 19:03 75 18 40 12/06/19 19:00 78 17 143/94 (110) 98 12/06/19 19:00 18 Mechanical Ventilator 12/06/19 18:30 83 20 159/91 (113) 98 12/06/19 18:00 18 Mechanical Ventilator 40 12/06/19 18:00 81 20 153/98 (116) 98 12/06/19 17:32 76 142/80 12/06/19 17:30 80 18 158/92 (114) 99 12/06/19 17:00 83 20 142/80 (100) 99 12/06/19 17:00 16 Mechanical Ventilator 40 12/06/19 17:00 85 16 137/82 (100) 99 12/06/19 16:49 85 18 40 12/06/19 16:30 72 16 129/73 (91) 99 12/06/19 16:00 40 12/06/19 16:00 85 16 137/82 (100) 99 12/06/19 16:00 Mechanical Ventilator Mechanical Ventilator Mechanical Ventilator Mechanical Ventilator 12/06/19 16:00 18 Mechanical Ventilator 40 12/06/19 16:00 98.0 85 16 137/82 (100) 99 12/06/19 16:00 84 12/06/19 15:30 81 16 131/80 (97) 99 12/06/19 15:11 68 16 40 12/06/19 15:00 20 Mechanical Ventilator 40 12/06/19 15:00 81 16 131/80 (97) 99 12/06/19 14:30 67 16 125/78 (94) 99 12/06/19 14:00 18 Mechanical Ventilator 40 12/06/19 14:00 67 16 122/71 (88) 99 12/06/19 13:30 67 16 114/75 (88) 99 12/06/19 13:04 145/80 12/06/19 13:00 16 Mechanical Ventilator 40 12/06/19 13:00 74 14 145/80 (101) 98 12/06/19 12:30 67 16 128/79 (95) 98 12/06/19 12:16 77 20 40 12/06/19 12:00 Mechanical Ventilator Mechanical Ventilator Mechanical Ventilator Mechanical Ventilator 12/06/19 12:00 73 12/06/19 12:00 40 12/06/19 12:00 20 Mechanical Ventilator 40 12/06/19 12:00 98.5 76 15 137/92 (107) 98 12/06/19 11:30 78 23 142/84 (103) 98 12/06/19 11:05 143/98 12/06/19 11:00 20 Mechanical Ventilator 40 12/06/19 11:00 82 25 143/98 (113) 98 12/06/19 10:44 74 22 40 12/06/19 10:30 75 23 148/99 (115) 98 12/06/19 10:00 20 Mechanical Ventilator 40 12/06/19 10:00 77 22 142/81 (101) 97 Intake and Output 12/06/19 12/07/19 19:00 07:00 Intake Total 866.9 ml 691 ml Output Total 725 ml 540 ml Balance 141.9 ml 151 ml Free Water 100 ml 100 ml IV Total 286.9 ml 111 ml Tube Feeding 480 ml 480 ml Output Urine Total 640 ml 490 ml Chest Tube Drainage Total 85 ml 50 ml Laboratory Tests 12/07/19 04:32: White Blood Count 20.1H, Red Blood Count 3.17L, Hemoglobin 9.8L, Hematocrit 29.4L, Mean Corpuscular Volume 93, Mean Corpuscular Hemoglobin 30.9, Mean Corpuscular Hemoglobin Concent 33.3, Red Cell Distribution Width 16.8H, Platelet Count 404, Mean Platelet Volume 5.2L, Neutrophils (%) (Auto) , Lymphocytes (%) (Auto) , Monocytes (%) (Auto) , Eosinophils (%) (Auto) , Basophils (%) (Auto) , Differential Total Cells Counted 100, Neutrophils % ( Manual) 94H, Lymphocytes % (Manual) 2L, Monocytes % (Manual) 4, Eosinophils % ( Manual) 0, Basophils % (Manual) 0, Band Neutrophils 0, Platelet Estimate Adequate, Platelet Morphology Normal, Anisocytosis 1+, Sodium Level 143, Potassium Level 3.4L, Chloride Level 107, Carbon Dioxide Level 25, Anion Gap 11 , Blood Urea Nitrogen 76H, Creatinine 5.5H, Estimat Glomerular Filtration Rate 12.1, Glucose Level 119H, Uric Acid 9.1H, Calcium Level 9.0, Phosphorus Level 3.4, Magnesium Level 2.1, Total Bilirubin 0.3, Aspartate Amino Transf (AST/SGOT ) 16, Alanine Aminotransferase (ALT/SGPT) 9L, Alkaline Phosphatase 74, C- Reactive Protein, Quantitative 13.8H, Pro-B-Type Natriuretic Peptide > 28186O, Total Protein 6.8, Albumin 2.0L, Globulin 4.8, Albumin/Globulin Ratio 0.4L Height (Feet): 5 Height (Inches): 10.00 Weight (Pounds): 209 General Appearance: no apparent distress EENT: other - Remains intubated and on ventilator Cardiovascular: tachycardia Respiratory/Chest: decreased breath sounds Abdomen: distended Objective No change Reynold Ellison MD Dec 07, 2019 09:53
[2019-12-07] MEDS: Nitroglycerin Patch 0.4mg TDERMAL SCH (10:16)
--- NOTE | 2019-12-07 10:40 | NUR ---
RD ASSESSMENT & RECOMMENDATIONS SEE CARE ACTIVITY FOR COMPLETE ASSESSMENT DAILY ESTIMATED NEEDS: Needs based on Critical care, ARF/ 80kg abw 22-28 kcals/kg 3433-4393 total kcals 0.6-1.0 (increase w/ renal improvement) g protein/kg 48-80 g total protein Fluids per MD NUTRITION DIAGNOSIS: * Swallowing difficulty R/T respiratory status as evidenced by pt orally intubated, on NGT feeding. * Altered nutrition related lab values R/T ARF on CKD as evidenced by elev creat (6.4 -> 4.8-> 5.5), elev K (6.1*-> 3.4), elev BNP (>63930). CURRENT TF:Nepro @ 40ml/hr x 24 hrs ENTERAL NUTRITION RECOMMENDATIONS: Nepro @ 40ml/hr x 24 hrs to provide 960ml, 1728kcal, 78g prot, 698ml free water * Maintain current TF -> rec to maintain NEPRO at this time given hyperkalemia w/ creat 6.4 upon adm (now creat 5.2) * HOB over 30 degrees/ water flush per MD * TF @ goal will meet 98% est kcal and 100% est prot needs ADDITIONAL RECOMMENDATIONS: * Per SNF: HT=71" [id number] * Monitor renal fxn and lytes: creat 6.4, K 6.1 upon adm -> monitor continued need for renal TF formula of Nepro -> Monitor for possible HD * Skin integrity: add Nephrovite x 1 .
--- NOTE | 2019-12-07 10:56 | General Progress Note ---
Assessment/Plan Status: stable, unchanged Assessment/Plan: Assessment/Plan: Assessment/Plan 1. atrial fibrillation. 2. Tachycardia. 3. Renal insufficiency. 4. Obstructive uropathy. 5. hypertension. 6. Prostatic hypertrophy. 7. History of latent tuberculosis. 8. History of heart failure. 9. History of hepatitis C infection. 10. Respiratory failure with respiratory acidosis, now on vent 11. UGIB 12. Proximal stomach ulcer and GIB, adherent clot, difficult visualization Recommendations TF - Nephro at 40 cc per NGT Daily CBC PPI Carafate>>will dc Elevate HOB fu H&H repeat EGD if rebleeds Subjective ROS Limited/Unobtainable: No Allergies: Coded Allergies: LISINOPRIL (Verified Allergy, Unknown, 11/21/19) SIMVASTATIN (Verified Allergy, Unknown, 11/21/19) TERAZOSIN (Verified Allergy, Unknown, 11/21/19) Subjective fever over night Objective Last 24 Hour Vital Signs Date Time Temp Pulse Resp B/P (MAP) Pulse Ox O2 Delivery O2 Flow Rate FiO2 12/07/19 10:30 78 16 184/107 (132) 100 12/07/19 10:16 183/117 12/07/19 10:00 81 16 183/117 (139) 99 12/07/19 09:40 60 12/07/19 09:39 75 16 40 12/07/19 09:30 85 15 153/101 (118) 99 12/07/19 09:01 Endotracheal Tube 60 12/07/19 09:00 97 16 142/103 (116) 99 12/07/19 09:00 16 Endotracheal Tube 60 12/07/19 08:30 107 19 169/100 (123) 99 12/07/19 08:27 112 175/95 12/07/19 08:26 112 175/95 12/07/19 08:01 60 12/07/19 08:00 Mechanical Ventilator Mechanical Ventilator Mechanical Ventilator Mechanical Ventilator 12/07/19 08:00 27 Endotracheal Tube 60 12/07/19 08:00 99.4 112 27 175/95 (121) 95 12/07/19 07:43 91 18 40 12/07/19 07:26 93 12/07/19 07:00 97 25 156/90 (112) 97 12/07/19 07:00 24 Mechanical Ventilator 12/07/19 07:00 98.4 96 25 152/90 (110) 97 12/07/19 06:30 96 24 12/07/19 06:00 105 25 170/96 (120) 96 12/07/19 06:00 22 Mechanical Ventilator 12/07/19 05:53 179/96 12/07/19 05:30 106 23 179/96 (123) 97 12/07/19 05:22 84 18 40 12/07/19 05:00 22 Mechanical Ventilator 12/07/19 05:00 104 22 180/119 (139) 97 12/07/19 04:30 87 18 165/98 (120) 97 12/07/19 04:00 40 12/07/19 04:00 Mechanical Ventilator Mechanical Ventilator Mechanical Ventilator Mechanical Ventilator 12/07/19 04:00 88 12/07/19 04:00 102 25 174/109 (130) 97 12/07/19 04:00 24 Mechanical Ventilator 12/07/19 03:30 94 23 163/106 (125) 97 12/07/19 03:00 90 20 175/109 (131) 96 12/07/19 03:00 25 Mechanical Ventilator 12/07/19 02:38 83 18 40 12/07/19 02:30 84 20 169/103 (125) 97 12/07/19 02:00 74 17 157/86 (109) 98 12/07/19 01:30 75 16 163/90 (114) 98 12/07/19 01:00 81 19 148/96 (113) 98 12/07/19 01:00 20 Mechanical Ventilator 12/07/19 00:33 75 16 40 12/07/19 00:30 72 16 143/76 (98) 99 12/07/19 00:00 Mechanical Ventilator Mechanical Ventilator Mechanical Ventilator Mechanical Ventilator 12/07/19 00:00 86 25 161/104 (123) 97 12/07/19 00:00 24 Mechanical Ventilator 12/07/19 00:00 40 12/07/19 00:00 70 12/06/19 23:20 79 17 40 12/06/19 23:00 Mechanical Ventilator 12/06/19 23:00 84 25 151/80 (103) 98 12/06/19 22:45 161/103 12/06/19 22:30 81 17 161/103 (122) 98 12/06/19 22:00 22 Mechanical Ventilator 4/2/20 22:00 83 23 152/86 (108) 98 12/06/19 21:30 81 23 159/101 (120) 98 12/06/19 21:20 84 19 40 12/06/19 21:00 81 16 166/88 (114) 99 12/06/19 21:00 22 Mechanical Ventilator 12/06/19 20:44 90 159/87 12/06/19 20:30 84 22 159/87 (111) 98 12/06/19 20:00 Mechanical Ventilator Mechanical Ventilator Mechanical Ventilator Mechanical Ventilator 12/06/19 20:00 40 12/06/19 20:00 98.4 82 22 149/90 (109) 98 12/06/19 20:00 84 12/06/19 20:00 Mechanical Ventilator 12/06/19 19:03 75 18 40 12/06/19 19:00 78 17 143/94 (110) 98 12/06/19 19:00 18 Mechanical Ventilator 12/06/19 18:30 83 20 159/91 (113) 98 12/06/19 18:00 18 Mechanical Ventilator 40 12/06/19 18:00 81 20 153/98 (116) 98 12/06/19 17:32 76 142/80 12/06/19 17:30 80 18 158/92 (114) 99 12/06/19 17:00 83 20 142/80 (100) 99 12/06/19 17:00 16 Mechanical Ventilator 40 12/06/19 17:00 85 16 137/82 (100) 99 12/06/19 16:49 85 18 40 12/06/19 16:30 72 16 129/73 (91) 99 12/06/19 16:00 40 12/06/19 16:00 85 16 137/82 (100) 99 12/06/19 16:00 Mechanical Ventilator Mechanical Ventilator Mechanical Ventilator Mechanical Ventilator 12/06/19 16:00 18 Mechanical Ventilator 40 12/06/19 16:00 98.0 85 16 137/82 (100) 99 12/06/19 16:00 84 12/06/19 15:30 81 16 131/80 (97) 99 12/06/19 15:11 68 16 40 12/06/19 15:00 20 Mechanical Ventilator 40 12/06/19 15:00 81 16 131/80 (97) 99 12/06/19 14:30 67 16 125/78 (94) 99 12/06/19 14:00 18 Mechanical Ventilator 40 12/06/19 14:00 67 16 122/71 (88) 99 12/06/19 13:30 67 16 114/75 (88) 99 12/06/19 13:04 145/80 12/06/19 13:00 16 Mechanical Ventilator 40 12/06/19 13:00 74 14 145/80 (101) 98 12/06/19 12:30 67 16 128/79 (95) 98 12/06/19 12:16 77 20 40 12/06/19 12:00 Mechanical Ventilator Mechanical Ventilator Mechanical Ventilator Mechanical Ventilator 12/06/19 12:00 73 12/06/19 12:00 40 12/06/19 12:00 20 Mechanical Ventilator 40 12/06/19 12:00 98.5 76 15 137/92 (107) 98 12/06/19 11:30 78 23 142/84 (103) 98 12/06/19 11:05 143/98 12/06/19 11:00 20 Mechanical Ventilator 40 12/06/19 11:00 82 25 143/98 (113) 98 Intake and Output 12/06/19 12/07/19 19:00 07:00 Intake Total 866.9 ml 691 ml Output Total 725 ml 540 ml Balance 141.9 ml 151 ml Free Water 100 ml 100 ml IV Total 286.9 ml 111 ml Tube Feeding 480 ml 480 ml Output Urine Total 640 ml 490 ml Chest Tube Drainage Total 85 ml 50 ml Laboratory Tests 12/07/19 04:32: White Blood Count 20.1H, Red Blood Count 3.17L, Hemoglobin 9.8L, Hematocrit 29.4L, Mean Corpuscular Volume 93, Mean Corpuscular Hemoglobin 30.9, Mean Corpuscular Hemoglobin Concent 33.3, Red Cell Distribution Width 16.8H, Platelet Count 404, Mean Platelet Volume 5.2L, Neutrophils (%) (Auto) , Lymphocytes (%) (Auto) , Monocytes (%) (Auto) , Eosinophils (%) (Auto) , Basophils (%) (Auto) , Differential Total Cells Counted 100, Neutrophils % ( Manual) 94H, Lymphocytes % (Manual) 2L, Monocytes % (Manual) 4, Eosinophils % ( Manual) 0, Basophils % (Manual) 0, Band Neutrophils 0, Platelet Estimate Adequate, Platelet Morphology Normal, Anisocytosis 1+, Sodium Level 143, Potassium Level 3.4L, Chloride Level 107, Carbon Dioxide Level 25, Anion Gap 11 , Blood Urea Nitrogen 76H, Creatinine 5.5H, Estimat Glomerular Filtration Rate 12.1, Glucose Level 119H, Uric Acid 9.1H, Calcium Level 9.0, Phosphorus Level 3.4, Magnesium Level 2.1, Total Bilirubin 0.3, Aspartate Amino Transf (AST/SGOT ) 16, Alanine Aminotransferase (ALT/SGPT) 9L, Alkaline Phosphatase 74, C- Reactive Protein, Quantitative 13.8H, Pro-B-Type Natriuretic Peptide > 82896C, Total Protein 6.8, Albumin 2.0L, Globulin 4.8, Albumin/Globulin Ratio 0.4L Height (Feet): 5 Height (Inches): 10.00 Weight (Pounds): 209 General Appearance: no apparent distress EENT: normal ENT inspection Neck: supple Cardiovascular: normal rate Respiratory/Chest: decreased breath sounds Abdomen: normal bowel sounds, non tender, soft Extremities: non-tender Hunter Sierra MD Dec 07, 2019 10:56
--- NOTE | 2019-12-07 11:48 | NUR ---
NURSE NOTES: Dr. Albright made aware regarding positive MDR sputum via telephone. No new order at this time.
--- NOTE | 2019-12-07 11:55 | Pulmonolgy Critical Care Note ---
Critical Care - Asmt/Plan Problems: (1) Acute hypercapnic respiratory failure (2) Anemia, chronic renal failure (3) Paroxysmal A-fib (4) Acute on chronic renal insufficiency (5) Chronic hepatitis (6) Moderate pulmonary arterial systolic hypertension (7) Left ventricular ejection fraction greater than or equal to 40 percent (8) History of hypertension (9) Alzheimer's dementia (10) BPH (benign prostatic hyperplasia) Respiratory: monitor respiratory rate, adjust FIO2, CXR Cardiac: continue pressors, continue to monitor HR/BP Renal: F/U I&O, check electrolytes Infectious Disease: check cultures Gastrointestinal: continue feedings/current rate Endocrine: monitor blood sugar Hematologic: transfuse if hgb<8.5 Neurologic: PRN Ativan, keep patient comfortable Affect: PRN ativan Time Spent (Minutes): 40 Notes Reviewed: cardio Discussed with: nurses, consultants, case specialistdev manager - Objective Last 24 Hour Vital Signs Date Time Temp Pulse Resp B/P (MAP) Pulse Ox O2 Delivery O2 Flow Rate FiO2 12/07/19 10:30 78 16 184/107 (132) 100 12/07/19 10:16 183/117 12/07/19 10:00 81 16 183/117 (139) 99 12/07/19 09:40 60 12/07/19 09:39 75 16 40 12/07/19 09:30 85 15 153/101 (118) 99 12/07/19 09:01 Endotracheal Tube 60 12/07/19 09:00 97 16 142/103 (116) 99 12/07/19 09:00 16 Endotracheal Tube 60 12/07/19 08:30 107 19 169/100 (123) 99 12/07/19 08:27 112 175/95 12/07/19 08:26 112 175/95 12/07/19 08:01 60 12/07/19 08:00 Mechanical Ventilator Mechanical Ventilator Mechanical Ventilator Mechanical Ventilator 12/07/19 08:00 27 Endotracheal Tube 60 12/07/19 08:00 99.4 112 27 175/95 (121) 95 12/07/19 07:43 91 18 40 12/07/19 07:26 93 12/07/19 07:00 97 25 156/90 (112) 97 12/07/19 07:00 24 Mechanical Ventilator 12/07/19 07:00 98.4 96 25 152/90 (110) 97 12/07/19 06:30 96 24 12/07/19 06:00 105 25 170/96 (120) 96 12/07/19 06:00 22 Mechanical Ventilator 12/07/19 05:53 179/96 12/07/19 05:30 106 23 179/96 (123) 97 12/07/19 05:22 84 18 40 12/07/19 05:00 22 Mechanical Ventilator 12/07/19 05:00 104 22 180/119 (139) 97 12/07/19 04:30 87 18 165/98 (120) 97 12/07/19 04:00 40 12/07/19 04:00 Mechanical Ventilator Mechanical Ventilator Mechanical Ventilator Mechanical Ventilator 12/07/19 04:00 88 12/07/19 04:00 102 25 174/109 (130) 97 12/07/19 04:00 24 Mechanical Ventilator 12/07/19 03:30 94 23 163/106 (125) 97 12/07/19 03:00 90 20 175/109 (131) 96 12/07/19 03:00 25 Mechanical Ventilator 12/07/19 02:38 83 18 40 12/07/19 02:30 84 20 169/103 (125) 97 12/07/19 02:00 74 17 157/86 (109) 98 12/07/19 01:30 75 16 163/90 (114) 98 12/07/19 01:00 81 19 148/96 (113) 98 12/07/19 01:00 20 Mechanical Ventilator 12/07/19 00:33 75 16 40 12/07/19 00:30 72 16 143/76 (98) 99 12/07/19 00:00 Mechanical Ventilator Mechanical Ventilator Mechanical Ventilator Mechanical Ventilator 12/07/19 00:00 86 25 161/104 (123) 97 12/07/19 00:00 24 Mechanical Ventilator 12/07/19 00:00 40 12/07/19 00:00 70 12/06/19 23:20 79 17 40 12/06/19 23:00 Mechanical Ventilator 12/06/19 23:00 84 25 151/80 (103) 98 12/06/19 22:45 161/103 12/06/19 22:30 81 17 161/103 (122) 98 12/06/19 22:00 22 Mechanical Ventilator 12/06/19 22:00 83 23 152/86 (108) 98 4/2/20 21:30 81 23 159/101 (120) 98 12/06/19 21:20 84 19 40 12/06/19 21:00 81 16 166/88 (114) 99 12/06/19 21:00 22 Mechanical Ventilator 12/06/19 20:44 90 159/87 12/06/19 20:30 84 22 159/87 (111) 98 12/06/19 20:00 Mechanical Ventilator Mechanical Ventilator Mechanical Ventilator Mechanical Ventilator 12/06/19 20:00 40 12/06/19 20:00 98.4 82 22 149/90 (109) 98 12/06/19 20:00 84 12/06/19 20:00 Mechanical Ventilator 12/06/19 19:03 75 18 40 12/06/19 19:00 78 17 143/94 (110) 98 12/06/19 19:00 18 Mechanical Ventilator 12/06/19 18:30 83 20 159/91 (113) 98 12/06/19 18:00 18 Mechanical Ventilator 40 12/06/19 18:00 81 20 153/98 (116) 98 12/06/19 17:32 76 142/80 12/06/19 17:30 80 18 158/92 (114) 99 12/06/19 17:00 83 20 142/80 (100) 99 12/06/19 17:00 16 Mechanical Ventilator 40 12/06/19 17:00 85 16 137/82 (100) 99 12/06/19 16:49 85 18 40 12/06/19 16:30 72 16 129/73 (91) 99 12/06/19 16:00 40 12/06/19 16:00 85 16 137/82 (100) 99 12/06/19 16:00 Mechanical Ventilator Mechanical Ventilator Mechanical Ventilator Mechanical Ventilator 12/06/19 16:00 18 Mechanical Ventilator 40 12/06/19 16:00 98.0 85 16 137/82 (100) 99 12/06/19 16:00 84 12/06/19 15:30 81 16 131/80 (97) 99 12/06/19 15:11 68 16 40 12/06/19 15:00 20 Mechanical Ventilator 40 12/06/19 15:00 81 16 131/80 (97) 99 12/06/19 14:30 67 16 125/78 (94) 99 12/06/19 14:00 18 Mechanical Ventilator 40 12/06/19 14:00 67 16 122/71 (88) 99 12/06/19 13:30 67 16 114/75 (88) 99 12/06/19 13:04 145/80 12/06/19 13:00 16 Mechanical Ventilator 40 12/06/19 13:00 74 14 145/80 (101) 98 12/06/19 12:30 67 16 128/79 (95) 98 12/06/19 12:16 77 20 40 12/06/19 12:00 Mechanical Ventilator Mechanical Ventilator Mechanical Ventilator Mechanical Ventilator 12/06/19 12:00 73 12/06/19 12:00 40 12/06/19 12:00 20 Mechanical Ventilator 40 12/06/19 12:00 98.5 76 15 137/92 (107) 98 Status: awake Condition: critical Neck: full ROM Lungs: clear Heart: HR/BP stable Abdomen: soft, active bowel sounds Extremities: no C/C/E Critical Care - Subjective ROS Limited/Unobtainable: No Condition: critical EKG Rhythm: Sinus Rhythm FI02: 60 Vent Support Breath Rate: 16 Vent Support Mode: AC Vent Tidal Volume: 700 Sputum Amount: Large PEEP: 0.0 PIP: 39 Tube Feeding Amount: 40 I&O: Intake and Output 12/06/19 12/07/19 19:00 07:00 Intake Total 866.9 ml 691 ml Output Total 725 ml 540 ml Balance 141.9 ml 151 ml Free Water 100 ml 100 ml IV Total 286.9 ml 111 ml Tube Feeding 480 ml 480 ml Output Urine Total 640 ml 490 ml Chest Tube Drainage Total 85 ml 50 ml CXR: no change ET-Tube: 7.5 ET Position: 23 Labs: Laboratory Tests Test 12/07/19 04:32 White Blood Count 20.1 K/UL (4.8-10.8) H Red Blood Count 3.17 M/UL (4.70-6.10) L Hemoglobin 9.8 G/DL (14.2-18.0) L Hematocrit 29.4 % (42.0-52.0) L Mean Corpuscular Volume 93 FL (80-99) Mean Corpuscular Hemoglobin 30.9 PG (27.0-31.0) Mean Corpuscular Hemoglobin Concent 33.3 G/DL (32.0-36.0) Red Cell Distribution Width 16.8 % (11.6-14.8) H Platelet Count 404 K/UL (150-450) Mean Platelet Volume 5.2 FL (6.5-10.1) L Neutrophils (%) (Auto) % (45.0-75.0) Lymphocytes (%) (Auto) % (20.0-45.0) Monocytes (%) (Auto) % (1.0-10.0) Eosinophils (%) (Auto) % (0.0-3.0) Basophils (%) (Auto) % (0.0-2.0) Differential Total Cells Counted 100 Neutrophils % (Manual) 94 % (45-75) H Lymphocytes % (Manual) 2 % (20-45) L Monocytes % (Manual) 4 % (1-10) Eosinophils % (Manual) 0 % (0-3) Basophils % (Manual) 0 % (0-2) Band Neutrophils 0 % (0-8) Platelet Estimate Adequate Platelet Morphology Normal Anisocytosis 1+ Sodium Level 143 MMOL/L (136-145) Potassium Level 3.4 MMOL/L (3.5-5.1) L Chloride Level 107 MMOL/L (98-107) Carbon Dioxide Level 25 MMOL/L (21-32) Anion Gap 11 mmol/L (5-15) Blood Urea Nitrogen 76 mg/dL (7-18) H Creatinine 5.5 MG/DL (0.55-1.30) H Estimat Glomerular Filtration Rate 12.1 mL/min (>60) Glucose Level 119 MG/DL (74-106) H Uric Acid 9.1 MG/DL (2.6-7.2) H Calcium Level 9.0 MG/DL (8.5-10.1) Phosphorus Level 3.4 MG/DL (2.5-4.9) Magnesium Level 2.1 MG/DL (1.8-2.4) Total Bilirubin 0.3 MG/DL (0.2-1.0) Aspartate Amino Transf (AST/SGOT) 16 U/L (15-37) Alanine Aminotransferase (ALT/SGPT) 9 U/L (12-78) L Alkaline Phosphatase 74 U/L (46-116) C-Reactive Protein, Quantitative 13.8 mg/dL (0.00-0.90) H Pro-B-Type Natriuretic Peptide > 84738 pg/mL (0-125) H Total Protein 6.8 G/DL (6.4-8.2) Albumin 2.0 G/DL (3.4-5.0) L Globulin 4.8 g/dL Albumin/Globulin Ratio 0.4 (1.0-2.7) L Susannah Hightower MD Dec 07, 2019 11:55
--- NOTE | 2019-12-07 14:23 | General Progress Note ---
Progress Note Progress Note I met with two sisters of the patient with rest of the family present. They have the Health Directives from [facility]. Pt didn't want to be kept on artificial life support. Family agreed with terminal extubation and morphine drip. Susannah Hightower MD Dec 07, 2019 14:23
--- NOTE | 2019-12-07 14:24 | NUR ---
NUCLEAR OPERATOR NOTE Pt's family, two daughters and five grandchildren made unexpected visit to the hospital. Pt's decision maker, Lonny Bolanos informed Dr. Hightower that the family wants to change code status- DNR and DNI.
--- NOTE | 2019-12-07 14:28 | NUR ---
NURSE NOTES: Dr. Hightower said to increase fentanyl, administer the IV push morphine, and extubate patient per order. Let Dr. Hightower know after extubation, before starting morphine drip.
[2019-12-07] MEDS ORDERED: Rate Change Narcotic Drip MISC PRN (14:30)
[2019-12-07] MEDS ORDERED: Morphine Sulfate 10mg/ml Inj IVP ONE (14:30)
[2019-12-07] MEDS ORDERED: Haloperidol 5mg/ml Inj IM PRN (14:30)
[2019-12-07] MEDS ORDERED: Prochlorperazine 10mg tab ORAL PRN (14:30)
[2019-12-07] MEDS ORDERED: PCA Morphine 1mg/ml 30 ML IV PRN (14:30)
[2019-12-07] MEDS: Narcotic Shift Volume MISC SCH ×3 (14:30→23:35)
[2019-12-07] MEDS ORDERED: Glycopyrrolate 0.2mg/ml 1ml Vial IV PRN (14:30)
--- NOTE | 2019-12-07 15:38 | NUR ---
NURSE NOTES: Duarte Bolanos at bedside. And she took home ALL patient's belongings. Watch, lares, credit card, checkbook, and socks. Patient's daughter/Duarte Bolanos signed belonging list.
--- NOTE | 2019-12-07 16:10 | Cardiology Progress Note ---
Assessment/Plan Assessment/Plan 1. Permanent versus paroxysmal episodes of atrial fibrillation. 2. Tachycardia. 3. Renal insufficiency. 4. Obstructive uropathy. 5. History of hypertension. 6. Prostatic hypertrophy. 7. History of latent tuberculosis. 8. History of heart failure. 9. History of hepatitis C infection. 10. Respiratory failure with respiratory acidosis, now on vent 11. melanotic stool 12 large gastric clot 13 Cardiopulmonary arrest 12/01-12/02 s/p champagne in ETT ? obstruction in ETT?? 14. PTX per dr rivera to have teminal extubation based on advanced directive and based on his communication with family Subjective ROS Limited/Unobtainable: Yes Subjective vent isolation Objective Last 24 Hour Vital Signs Date Time Temp Pulse Resp B/P (MAP) Pulse Ox O2 Delivery O2 Flow Rate FiO2 12/07/19 14:35 91 16 60 12/07/19 13:20 102 16 60 12/07/19 13:03 165/119 12/07/19 13:00 90 14 181/116 (137) 99 12/07/19 12:30 72 16 165/119 (134) 100 12/07/19 12:17 83 12/07/19 12:00 99.7 79 16 171/116 (134) 100 12/07/19 12:00 Mechanical Ventilator Mechanical Ventilator Mechanical Ventilator Mechanical Ventilator 12/07/19 11:30 79 17 185/114 (137) 100 12/07/19 11:00 95 22 168/109 (128) 99 12/07/19 10:30 78 16 184/107 (132) 100 12/07/19 10:16 183/117 12/07/19 10:00 81 16 183/117 (139) 99 12/07/19 09:40 60 12/07/19 09:39 75 16 40 12/07/19 09:30 85 15 153/101 (118) 99 12/07/19 09:01 Endotracheal Tube 60 12/07/19 09:00 97 16 142/103 (116) 99 12/07/19 09:00 16 Endotracheal Tube 60 12/07/19 08:30 107 19 169/100 (123) 99 12/07/19 08:27 112 175/95 12/07/19 08:26 112 175/95 12/07/19 08:01 60 12/07/19 08:00 Mechanical Ventilator Mechanical Ventilator Mechanical Ventilator Mechanical Ventilator 12/07/19 08:00 27 Endotracheal Tube 60 12/07/19 08:00 99.4 112 27 175/95 (121) 95 12/07/19 07:43 91 18 40 12/07/19 07:26 93 12/07/19 07:00 97 25 156/90 (112) 97 12/07/19 07:00 24 Mechanical Ventilator 12/07/19 07:00 98.4 96 25 152/90 (110) 97 12/07/19 06:30 96 24 12/07/19 06:00 105 25 170/96 (120) 96 12/07/19 06:00 22 Mechanical Ventilator 12/07/19 05:53 179/96 12/07/19 05:30 106 23 179/96 (123) 97 12/07/19 05:22 84 18 40 12/07/19 05:00 22 Mechanical Ventilator 12/07/19 05:00 104 22 180/119 (139) 97 12/07/19 04:30 87 18 165/98 (120) 97 12/07/19 04:00 40 12/07/19 04:00 Mechanical Ventilator Mechanical Ventilator Mechanical Ventilator Mechanical Ventilator 12/07/19 04:00 88 12/07/19 04:00 102 25 174/109 (130) 97 12/07/19 04:00 24 Mechanical Ventilator 12/07/19 03:30 94 23 163/106 (125) 97 12/07/19 03:00 90 20 175/109 (131) 96 12/07/19 03:00 25 Mechanical Ventilator 12/07/19 02:38 83 18 40 12/07/19 02:30 84 20 169/103 (125) 97 12/07/19 02:00 74 17 157/86 (109) 98 12/07/19 01:30 75 16 163/90 (114) 98 12/07/19 01:00 81 19 148/96 (113) 98 12/07/19 01:00 20 Mechanical Ventilator 12/07/19 00:33 75 16 40 12/07/19 00:30 72 16 143/76 (98) 99 12/07/19 00:00 Mechanical Ventilator Mechanical Ventilator Mechanical Ventilator Mechanical Ventilator 12/07/19 00:00 86 25 161/104 (123) 97 12/07/19 00:00 24 Mechanical Ventilator 12/07/19 00:00 40 12/07/19 00:00 70 12/06/19 23:20 79 17 40 12/06/19 23:00 Mechanical Ventilator 12/06/19 23:00 84 25 151/80 (103) 98 12/06/19 22:45 161/103 12/06/19 22:30 81 17 161/103 (122) 98 12/06/19 22:00 22 Mechanical Ventilator 12/06/19 22:00 83 23 152/86 (108) 98 12/06/19 21:30 81 23 159/101 (120) 98 12/06/19 21:20 84 19 40 12/06/19 21:00 81 16 166/88 (114) 99 12/06/19 21:00 22 Mechanical Ventilator 12/06/19 20:44 90 159/87 12/06/19 20:30 84 22 159/87 (111) 98 12/06/19 20:00 Mechanical Ventilator Mechanical Ventilator Mechanical Ventilator Mechanical Ventilator 12/06/19 20:00 40 12/06/19 20:00 98.4 82 22 149/90 (109) 98 12/06/19 20:00 84 12/06/19 20:00 Mechanical Ventilator 12/06/19 19:03 75 18 40 12/06/19 19:00 78 17 143/94 (110) 98 12/06/19 19:00 18 Mechanical Ventilator 12/06/19 18:30 83 20 159/91 (113) 98 12/06/19 18:00 18 Mechanical Ventilator 40 12/06/19 18:00 81 20 153/98 (116) 98 12/06/19 17:32 76 142/80 12/06/19 17:30 80 18 158/92 (114) 99 12/06/19 17:00 83 20 142/80 (100) 99 12/06/19 17:00 16 Mechanical Ventilator 40 12/06/19 17:00 85 16 137/82 (100) 99 12/06/19 16:49 85 18 40 12/06/19 16:30 72 16 129/73 (91) 99 General Appearance: no apparent distress, on vent, patient on isolation Intake and Output 12/06/19 12/07/19 19:00 07:00 Intake Total 866.9 ml 691 ml Output Total 725 ml 540 ml Balance 141.9 ml 151 ml Free Water 100 ml 100 ml IV Total 286.9 ml 111 ml Tube Feeding 480 ml 480 ml Output Urine Total 640 ml 490 ml Chest Tube Drainage Total 85 ml 50 ml Laboratory Tests Test 12/07/19 04:32 White Blood Count 20.1 K/UL (4.8-10.8) H Red Blood Count 3.17 M/UL (4.70-6.10) L Hemoglobin 9.8 G/DL (14.2-18.0) L Hematocrit 29.4 % (42.0-52.0) L Mean Corpuscular Volume 93 FL (80-99) Mean Corpuscular Hemoglobin 30.9 PG (27.0-31.0) Mean Corpuscular Hemoglobin Concent 33.3 G/DL (32.0-36.0) Red Cell Distribution Width 16.8 % (11.6-14.8) H Platelet Count 404 K/UL (150-450) Mean Platelet Volume 5.2 FL (6.5-10.1) L Neutrophils (%) (Auto) % (45.0-75.0) Lymphocytes (%) (Auto) % (20.0-45.0) Monocytes (%) (Auto) % (1.0-10.0) Eosinophils (%) (Auto) % (0.0-3.0) Basophils (%) (Auto) % (0.0-2.0) Differential Total Cells Counted 100 Neutrophils % (Manual) 94 % (45-75) H Lymphocytes % (Manual) 2 % (20-45) L Monocytes % (Manual) 4 % (1-10) Eosinophils % (Manual) 0 % (0-3) Basophils % (Manual) 0 % (0-2) Band Neutrophils 0 % (0-8) Platelet Estimate Adequate Platelet Morphology Normal Anisocytosis 1+ Sodium Level 143 MMOL/L (136-145) Potassium Level 3.4 MMOL/L (3.5-5.1) L Chloride Level 107 MMOL/L (98-107) Carbon Dioxide Level 25 MMOL/L (21-32) Anion Gap 11 mmol/L (5-15) Blood Urea Nitrogen 76 mg/dL (7-18) H Creatinine 5.5 MG/DL (0.55-1.30) H Estimat Glomerular Filtration Rate 12.1 mL/min (>60) Glucose Level 119 MG/DL (74-106) H Uric Acid 9.1 MG/DL (2.6-7.2) H Calcium Level 9.0 MG/DL (8.5-10.1) Phosphorus Level 3.4 MG/DL (2.5-4.9) Magnesium Level 2.1 MG/DL (1.8-2.4) Total Bilirubin 0.3 MG/DL (0.2-1.0) Aspartate Amino Transf (AST/SGOT) 16 U/L (15-37) Alanine Aminotransferase (ALT/SGPT) 9 U/L (12-78) L Alkaline Phosphatase 74 U/L (46-116) C-Reactive Protein, Quantitative 13.8 mg/dL (0.00-0.90) H Pro-B-Type Natriuretic Peptide > 06702 pg/mL (0-125) H Total Protein 6.8 G/DL (6.4-8.2) Albumin 2.0 G/DL (3.4-5.0) L Globulin 4.8 g/dL Albumin/Globulin Ratio 0.4 (1.0-2.7) L Vasu Zaidi MD Dec 07, 2019 16:10
--- NOTE | 2019-12-07 16:12 | NUR ---
NURSE NOTES: Morphine 10mg IV push given, RT/Loraine and Dr. Zaidi in the room. Patient for terminally extubation. Fentanyl 60mcg/hour is still infusing.
--- NOTE | 2019-12-07 16:18 | NUR ---
RESPIRATORY NOTE: extubated pt at 1615 per MD order to keep on comfort measures and placed on RA. RN at bedside when extubation occurred. MD present.
--- NOTE | 2019-12-07 16:23 | NUR ---
NURSE NOTES: Spoke with Dr. Hightower via telephone. Informed that patient is already extubated. Current vital signs. Patient on room air, Oxygen saturation between 60-65%. In no apparent distress. On continuous Fentanyl drip at 60mcg/hour. Dr. Hightower said to continue Fentanyl drip, hold morphine drip for now.
[2019-12-07] MEDS ORDERED: Morphine Sulfate 10mg/ml Inj IVP SCH (16:30)
--- NOTE | 2019-12-07 17:00 | NUR ---
NURSE NOTES: Patient remains room air. No respiratory distress.
[2019-12-07 17:51] LABS: CREATININE 5.5 MG/DL (0.55-1.30)
--- NOTE | 2019-12-07 19:20 | NUR ---
HAND-OFF: Report given to Dimas Graf RN.
--- NOTE | 2019-12-07 19:30 | NUR ---
NURSE NOTES: Patient and report given by SYED Singer. Pt is resting in bed, lightly sedated RASS -2, opens eyes when called by name, unable to follow commands. Terminal extubated and withdrew of care. Pt's currently on comfort care. Pt noted in Afib on classroom monitor. Pt also has a chest tube noted in left lateral chest with dry and intact dressing draining serosanguineous drainage at 20 cm H20 on continuos suction, no air leak present. NGT was removed. Noted Patiño draining clear yellow urine. Skin alterations noted, on P200 mattress. Pt has a THAD double lumen PICC running Fentanyl drip running 60 mcg/hr. SCDs on bilateral lower extremities. Bed is in lowest position, alarm on, side rails up x 2, call light within reach. Will continue to monitor.
[2019-12-07] MEDS: Dyna-Hex 2% Top Sol 2oz TOPIC SCH (20:00)
--- NOTE | 2019-12-07 20:44 | Infectious Diseases Prog Note ---
Assessment/Plan Assessment/Plan ASSESSMENT: This is an 83-year-old male. Afebrile Leukocytosis ( 2nd to GI bleed, arrest, pneumothorax) Possible PNA superimposed on CHF exacerbation - 12/02 CXR: Large left pneumothorax. Suspected underlying pulmonary edema. Superimposed infiltrate may be present the right perihilar region. - Respiratory failure: m/l 2/2 CHF, elevated BNP) - Sp Cx PSA Probable UTI - UCX : PSA and ESBL E Coli GPC Bacteremia - BCx 11/21/19 Staph warneri 2/2 sets - BCx 11/22/19 - Neg - 2D Echo : No Veg SP EGD Congestive heart failure. Atrial fibrillation. Altered mental status. Urinary tract infection. Renal failure. Hypertension. Alzheimer's dementia. BPH P: Plan is compassionate extubation per family's wishes Thank you for allowing us to be involved in this patient's care. MINERVA RN Subjective Allergies: Coded Allergies: LISINOPRIL (Verified Allergy, Unknown, 11/21/19) SIMVASTATIN (Verified Allergy, Unknown, 11/21/19) TERAZOSIN (Verified Allergy, Unknown, 11/21/19) Subjective Late entry. Pt seen early afternoon. Afebrile. FiO2 increasing. SP family meeting Objective Vital Signs Last 24 Hour Vital Signs Date Time Temp Pulse Resp B/P (MAP) Pulse Ox O2 Delivery O2 Flow Rate FiO2 12/07/19 19:00 94 27 135/75 (95) 62 12/07/19 19:00 27 Room Air 12/07/19 18:30 91 22 147/76 (99) 60 12/07/19 18:00 95 25 140/79 (99) 61 12/07/19 18:00 95 25 140/79 (99) 61 12/07/19 18:00 25 Room Air 12/07/19 17:00 24 Room Air 12/07/19 17:00 98 24 151/79 (103) 58 12/07/19 16:36 90 12/07/19 16:30 83 41 130/75 (93) 61 12/07/19 16:22 71 30 137/81 (99) 68 12/07/19 16:22 71 30 137/81 (99) 68 12/07/19 16:00 Mechanical Ventilator Mechanical Ventilator Mechanical Ventilator Mechanical Ventilator 12/07/19 16:00 60 12/07/19 16:00 15 Room Air 12/07/19 16:00 79 15 141/87 (105) 100 12/07/19 16:00 79 15 141/87 (105) 100 12/07/19 15:30 74 16 149/98 (115) 100 12/07/19 15:00 16 Room Air 12/07/19 15:00 74 16 142/87 (105) 100 12/07/19 14:35 91 16 60 12/07/19 14:30 88 14 153/97 (115) 99 12/07/19 14:00 79 16 148/88 (108) 99 12/07/19 14:00 16 Endotracheal Tube 60 12/07/19 13:30 95 16 149/96 (113) 99 12/07/19 13:20 102 16 60 12/07/19 13:03 165/119 12/07/19 13:00 90 14 181/116 (137) 99 12/07/19 13:00 14 Endotracheal Tube 60 12/07/19 12:30 72 16 165/119 (134) 100 12/07/19 12:17 83 12/07/19 12:00 99.7 79 16 171/116 (134) 100 12/07/19 12:00 Mechanical Ventilator Mechanical Ventilator Mechanical Ventilator Mechanical Ventilator 12/07/19 12:00 16 Endotracheal Tube 60 12/07/19 11:30 79 17 185/114 (137) 100 12/07/19 11:00 95 22 168/109 (128) 99 12/07/19 11:00 22 Endotracheal Tube 60 12/07/19 10:30 78 16 184/107 (132) 100 12/07/19 10:16 183/117 12/07/19 10:00 81 16 183/117 (139) 99 12/07/19 10:00 16 Endotracheal Tube 60 12/07/19 09:40 60 12/07/19 09:39 75 16 40 12/07/19 09:30 85 15 153/101 (118) 99 12/07/19 09:01 Endotracheal Tube 60 12/07/19 09:00 97 16 142/103 (116) 99 12/07/19 09:00 16 Endotracheal Tube 60 12/07/19 08:30 107 19 169/100 (123) 99 12/07/19 08:27 112 175/95 4/3/20 08:26 112 175/95 12/07/19 08:01 60 12/07/19 08:00 Mechanical Ventilator Mechanical Ventilator Mechanical Ventilator Mechanical Ventilator 12/07/19 08:00 27 Endotracheal Tube 60 12/07/19 08:00 99.4 112 27 175/95 (121) 95 12/07/19 07:43 91 18 40 12/07/19 07:26 93 12/07/19 07:00 97 25 156/90 (112) 97 12/07/19 07:00 24 Mechanical Ventilator 12/07/19 07:00 98.4 96 25 152/90 (110) 97 12/07/19 06:30 96 24 12/07/19 06:00 105 25 170/96 (120) 96 12/07/19 06:00 22 Mechanical Ventilator 12/07/19 05:53 179/96 12/07/19 05:30 106 23 179/96 (123) 97 12/07/19 05:22 84 18 40 12/07/19 05:00 22 Mechanical Ventilator 12/07/19 05:00 104 22 180/119 (139) 97 12/07/19 04:30 87 18 165/98 (120) 97 12/07/19 04:00 40 12/07/19 04:00 Mechanical Ventilator Mechanical Ventilator Mechanical Ventilator Mechanical Ventilator 12/07/19 04:00 88 12/07/19 04:00 102 25 174/109 (130) 97 12/07/19 04:00 24 Mechanical Ventilator 12/07/19 03:30 94 23 163/106 (125) 97 12/07/19 03:00 90 20 175/109 (131) 96 12/07/19 03:00 25 Mechanical Ventilator 12/07/19 02:38 83 18 40 12/07/19 02:30 84 20 169/103 (125) 97 12/07/19 02:00 74 17 157/86 (109) 98 12/07/19 01:30 75 16 163/90 (114) 98 12/07/19 01:00 81 19 148/96 (113) 98 12/07/19 01:00 20 Mechanical Ventilator 12/07/19 00:33 75 16 40 12/07/19 00:30 72 16 143/76 (98) 99 12/07/19 00:00 Mechanical Ventilator Mechanical Ventilator Mechanical Ventilator Mechanical Ventilator 4/3/20 00:00 86 25 161/104 (123) 97 12/07/19 00:00 24 Mechanical Ventilator 12/07/19 00:00 40 12/07/19 00:00 70 12/06/19 23:20 79 17 40 12/06/19 23:00 Mechanical Ventilator 12/06/19 23:00 84 25 151/80 (103) 98 12/06/19 22:45 161/103 12/06/19 22:30 81 17 161/103 (122) 98 12/06/19 22:00 22 Mechanical Ventilator 12/06/19 22:00 83 23 152/86 (108) 98 12/06/19 21:30 81 23 159/101 (120) 98 12/06/19 21:20 84 19 40 12/06/19 21:00 81 16 166/88 (114) 99 12/06/19 21:00 22 Mechanical Ventilator 12/06/19 20:44 90 159/87 Height (Feet): 5 Height (Inches): 10.00 Weight (Pounds): 209 Objective Gen: NAD CV: RRR. no rubs or gallop. Pulm: RRR. equal chest rise. Chest tube. Abd: soft. nondistended Neuro: sedated Laboratory Tests Test 12/07/19 04:32 White Blood Count 20.1 K/UL (4.8-10.8) H Red Blood Count 3.17 M/UL (4.70-6.10) L Hemoglobin 9.8 G/DL (14.2-18.0) L Hematocrit 29.4 % (42.0-52.0) L Mean Corpuscular Volume 93 FL (80-99) Mean Corpuscular Hemoglobin 30.9 PG (27.0-31.0) Mean Corpuscular Hemoglobin Concent 33.3 G/DL (32.0-36.0) Red Cell Distribution Width 16.8 % (11.6-14.8) H Platelet Count 404 K/UL (150-450) Mean Platelet Volume 5.2 FL (6.5-10.1) L Neutrophils (%) (Auto) % (45.0-75.0) Lymphocytes (%) (Auto) % (20.0-45.0) Monocytes (%) (Auto) % (1.0-10.0) Eosinophils (%) (Auto) % (0.0-3.0) Basophils (%) (Auto) % (0.0-2.0) Differential Total Cells Counted 100 Neutrophils % (Manual) 94 % (45-75) H Lymphocytes % (Manual) 2 % (20-45) L Monocytes % (Manual) 4 % (1-10) Eosinophils % (Manual) 0 % (0-3) Basophils % (Manual) 0 % (0-2) Band Neutrophils 0 % (0-8) Platelet Estimate Adequate Platelet Morphology Normal Anisocytosis 1+ Sodium Level 143 MMOL/L (136-145) Potassium Level 3.4 MMOL/L (3.5-5.1) L Chloride Level 107 MMOL/L (98-107) Carbon Dioxide Level 25 MMOL/L (21-32) Anion Gap 11 mmol/L (5-15) Blood Urea Nitrogen 76 mg/dL (7-18) H Creatinine 5.5 MG/DL (0.55-1.30) H Estimat Glomerular Filtration Rate 12.1 mL/min (>60) Glucose Level 119 MG/DL (74-106) H Uric Acid 9.1 MG/DL (2.6-7.2) H Calcium Level 9.0 MG/DL (8.5-10.1) Phosphorus Level 3.4 MG/DL (2.5-4.9) Magnesium Level 2.1 MG/DL (1.8-2.4) Total Bilirubin 0.3 MG/DL (0.2-1.0) Aspartate Amino Transf (AST/SGOT) 16 U/L (15-37) Alanine Aminotransferase (ALT/SGPT) 9 U/L (12-78) L Alkaline Phosphatase 74 U/L (46-116) C-Reactive Protein, Quantitative 13.8 mg/dL (0.00-0.90) H Pro-B-Type Natriuretic Peptide > 47904 pg/mL (0-125) H Total Protein 6.8 G/DL (6.4-8.2) Albumin 2.0 G/DL (3.4-5.0) L Globulin 4.8 g/dL Albumin/Globulin Ratio 0.4 (1.0-2.7) L Current Medications Medications (Trade) Dose Ordered Sig/Cyndi Route PRN Reason Start Time Stop Time Status Last Admin Dose Admin Acetaminophen (Tylenol) 650 mg Q4H PRN NG Fever 11/21/19 13:00 12/21/19 08:14 12/06/19 02:04 Artificial Tears (Akwa-Tears) 1 drop QIDPRN PRN BOTH EYES Dry Eyes 12/07/19 14:30 01/06/20 14:29 Chlorhexidine Gluconate (Corrie-Hex 2%) 1 applic DAILY@1999 TOPIC 11/27/19 20:00 02/25/20 19:59 12/06/19 20:43 Clonidine HCl (Catapres Tab) 0.1 mg EVERY 8 HOURS NG 12/04/19 14:00 03/03/20 13:59 12/07/19 13:03 Dextrose (Dextrose 50%) 25 ml Q30M PRN IV Hypoglycemia 11/21/19 08:15 02/19/20 08:14 Dextrose (Dextrose 50%) 50 ml Q30M PRN IV Hypoglycemia 11/21/19 08:15 02/19/20 08:14 Fentanyl Citrate 1000 mcg/Sodium Chloride 100 ml @ 0 mls/hr Q24H IV 12/05/19 09:00 12/12/19 08:59 12/07/19 09:01 Glycopyrrolate (Robinul) 0.1 mg Q6H PRN IV excessive secretions 12/07/19 14:30 01/06/20 14:29 Haloperidol Lactate (Haldol) 1 mg Q30M PRN IM Agitation 12/07/19 14:30 01/21/20 14:29 Lorazepam (Ativan 2mg/ml 1ml) 1 mg Q6HR PRN IV Agitation 12/03/19 20:00 12/10/19 19:59 12/06/19 03:07 Miscellaneous Medication (Narcotic Drip Rate Change) 1 ea DAILY PRN MISC To Patient Comfort 12/07/19 14:30 01/06/20 14:29 Miscellaneous Medication (Narcotic Shift Volume) 1 ea Q8HR@07,15,23 MISC 12/07/19 14:30 01/06/20 14:29 Morphine Sulfate 30 ml @ 0 mls/hr CH[employer]ING [employer] OPERATOR Protocol PRN IV For Pain 12/07/19 14:30 12/09/19 14:29 Nitroglycerin (Ntg) 1 patch Q24H TDERMAL 11/22/19 11:00 12/22/19 10:59 12/07/19 10:16 Prochlorperazine (Compazine) 10 mg Q6H PRN ORAL Nausea & Vomiting 12/07/19 14:30 01/06/20 14:29 Rich Albright MD Dec 07, 2019 20:44
--- NOTE | 2019-12-07 22:47 | Internal Med Progress Note ---
Subjective Physician Name Claude Garza Attending Physician Claude Garza MD Current Medications Medications (Trade) Dose Ordered Sig/Cyndi Route PRN Reason Start Time Stop Time Status Last Admin Dose Admin Acetaminophen (Tylenol) 650 mg Q4H PRN NG Fever 11/21/19 13:00 12/21/19 08:14 12/06/19 02:04 Artificial Tears (Akwa-Tears) 1 drop QIDPRN PRN BOTH EYES Dry Eyes 12/07/19 14:30 01/06/20 14:29 Chlorhexidine Gluconate (Corrie-Hex 2%) 1 applic DAILY@1999 TOPIC 11/27/19 20:00 02/25/20 19:59 12/06/19 20:43 Clonidine HCl (Catapres Tab) 0.1 mg EVERY 8 HOURS NG 12/04/19 14:00 03/03/20 13:59 12/07/19 13:03 Dextrose (Dextrose 50%) 25 ml Q30M PRN IV Hypoglycemia 11/21/19 08:15 02/19/20 08:14 Dextrose (Dextrose 50%) 50 ml Q30M PRN IV Hypoglycemia 11/21/19 08:15 02/19/20 08:14 Fentanyl Citrate 1000 mcg/Sodium Chloride 100 ml @ 0 mls/hr Q24H IV 12/05/19 09:00 12/12/19 08:59 12/07/19 09:01 Glycopyrrolate (Robinul) 0.1 mg Q6H PRN IV excessive secretions 12/07/19 14:30 01/06/20 14:29 Haloperidol Lactate (Haldol) 1 mg Q30M PRN IM Agitation 12/07/19 14:30 01/21/20 14:29 Lorazepam (Ativan 2mg/ml 1ml) 1 mg Q6HR PRN IV Agitation 12/03/19 20:00 12/10/19 19:59 12/06/19 03:07 Miscellaneous Medication (Narcotic Drip Rate Change) 1 ea DAILY PRN MISC To Patient Comfort 12/07/19 14:30 01/06/20 14:29 Miscellaneous Medication (Narcotic Shift Volume) 1 ea Q8HR@07,15,23 MISC 12/07/19 14:30 01/06/20 14:29 Morphine Sulfate 30 ml @ 0 mls/hr PODIATRY DOCTOR Protocol PRN IV For Pain 12/07/19 14:30 12/09/19 14:29 Nitroglycerin (Ntg) 1 patch Q24H TDERMAL 11/22/19 11:00 12/22/19 10:59 12/07/19 10:16 Prochlorperazine (Compazine) 10 mg Q6H PRN ORAL Nausea & Vomiting 12/07/19 14:30 01/06/20 14:29 Allergies: Coded Allergies: LISINOPRIL (Verified Allergy, Unknown, 11/21/19) SIMVASTATIN (Verified Allergy, Unknown, 11/21/19) TERAZOSIN (Verified Allergy, Unknown, 11/21/19) Subjective in ICU, intubated, open eyes, sedated, WBC: 20.1. Objective Last Vital Signs Date Time Temp Pulse Resp B/P (MAP) Pulse Ox O2 Delivery O2 Flow Rate FiO2 12/07/19 20:00 Mechanical Ventilator Mechanical Ventilator Mechanical Ventilator Mechanical Ventilator 12/07/19 20:00 119 12/07/19 19:00 27 135/75 (95) 62 12/07/19 16:00 60 12/07/19 12:00 99.7 Laboratory Tests Test 12/07/19 04:32 White Blood Count 20.1 K/UL (4.8-10.8) H Red Blood Count 3.17 M/UL (4.70-6.10) L Hemoglobin 9.8 G/DL (14.2-18.0) L Hematocrit 29.4 % (42.0-52.0) L Mean Corpuscular Volume 93 FL (80-99) Mean Corpuscular Hemoglobin 30.9 PG (27.0-31.0) Mean Corpuscular Hemoglobin Concent 33.3 G/DL (32.0-36.0) Red Cell Distribution Width 16.8 % (11.6-14.8) H Platelet Count 404 K/UL (150-450) Mean Platelet Volume 5.2 FL (6.5-10.1) L Neutrophils (%) (Auto) % (45.0-75.0) Lymphocytes (%) (Auto) % (20.0-45.0) Monocytes (%) (Auto) % (1.0-10.0) Eosinophils (%) (Auto) % (0.0-3.0) Basophils (%) (Auto) % (0.0-2.0) Differential Total Cells Counted 100 Neutrophils % (Manual) 94 % (45-75) H Lymphocytes % (Manual) 2 % (20-45) L Monocytes % (Manual) 4 % (1-10) Eosinophils % (Manual) 0 % (0-3) Basophils % (Manual) 0 % (0-2) Band Neutrophils 0 % (0-8) Platelet Estimate Adequate Platelet Morphology Normal Anisocytosis 1+ Sodium Level 143 MMOL/L (136-145) Potassium Level 3.4 MMOL/L (3.5-5.1) L Chloride Level 107 MMOL/L (98-107) Carbon Dioxide Level 25 MMOL/L (21-32) Anion Gap 11 mmol/L (5-15) Blood Urea Nitrogen 76 mg/dL (7-18) H Creatinine 5.5 MG/DL (0.55-1.30) H Estimat Glomerular Filtration Rate 12.1 mL/min (>60) Glucose Level 119 MG/DL (74-106) H Uric Acid 9.1 MG/DL (2.6-7.2) H Calcium Level 9.0 MG/DL (8.5-10.1) Phosphorus Level 3.4 MG/DL (2.5-4.9) Magnesium Level 2.1 MG/DL (1.8-2.4) Total Bilirubin 0.3 MG/DL (0.2-1.0) Aspartate Amino Transf (AST/SGOT) 16 U/L (15-37) Alanine Aminotransferase (ALT/SGPT) 9 U/L (12-78) L Alkaline Phosphatase 74 U/L (46-116) C-Reactive Protein, Quantitative 13.8 mg/dL (0.00-0.90) H Pro-B-Type Natriuretic Peptide > 40839 pg/mL (0-125) H Total Protein 6.8 G/DL (6.4-8.2) Albumin 2.0 G/DL (3.4-5.0) L Globulin 4.8 g/dL Albumin/Globulin Ratio 0.4 (1.0-2.7) L Intake and Output 12/06/19 12/07/19 18:59 06:59 Intake Total 863.9 ml 688 ml Output Total 715 ml 490 ml Balance 148.9 ml 198 ml Free Water 100 ml 100 ml IV Total 283.9 ml 108 ml Tube Feeding 480 ml 480 ml Output Urine Total 630 ml 490 ml Chest Tube Drainage Total 85 ml Objective General: Intubated, open eyes with deep stimuli, sedated. HEENT: NCAT, sclera anicteric, PERRL, EOMI, ET tube, NGT. Neck: Supple, no significant jugular venous distention, Lungs: Mechanical breath sound, no Wheeze or Rales. CHEST WALL: left side chest tube. Heart: Regular rate and rhythm, normal S1/S2, no murmur. Abdomen: soft, nontender, nondistended, bowel sounds presented, obesity. : Patiño Cath. Extremities: No Cyanosis , clubbing or edema. LUE Piccline. Neuro: Able to move all extremities slowly. Skin: warm, no rash. Assessment/Plan Assessment/Plan ASSESSMENT: This is an 83-year-old male. 1. Acute hypercapnia respiratory failure. 2. Congestive heart failure. 3. Atrial fibrillation. 4. Altered mental status. 5. ESBL E. Coli and Pseudomonas Urinary tract infection. 6. DOLLY on Chronic Renal failure. 7. Hypertension. 8. Alzheimer's dementia. 9. Benign prostatic hypertrophy. 10. Acute upper GI bleeding. 11. Cardiopulmonary arrest 12/01-12/02 s/p champagne in ETT ? obstruction in ETT?? 12. Left PTX s/p chest tube placement. TREATMENT: 1. Congestive heart failure. A Cardiology consultation has been obtained with Dr. Vasu Zaidi. We will follow recommendations of Cardiology. The patient is currently receiving intravenous Lasix. 2. Respiratory failure. A Pulmonary consultation has been obtained with Dr. Susannah Hightower. The patient is currently intubated in the intensive care unit. We will follow recommendations of Pulmonary. ABX=Off ID=Dr Hicks 3. Atrial fibrillation as above. A Cardiology consultation has been obtained with Dr. Vasu Zaidi. 4. Renal failure. A Nephrology consultation has been obtained with Dr. Ellison. We will follow recommendations of Nephrology. 5. Hypertension. The patient is currently hypotensive in the intensive care unit. 6. Alzheimer's dementia. 7. Benign prostatic hypertrophy. 8. Acute upper GI Bleeding S/P EGD X 2, Dr. Sierra Code status: DNARClaude Orozco MD Dec 07, 2019 22:47
[2019-12-08] VITALS (22 sets, daily range): BP systolic 79–158; BP diastolic 47–101
--- NOTE | 2019-12-08 02:00 | NUR ---
NURSE NOTES: Pt's on Comfort care, resting in bed, no s/s pain noted. Will continue to monitor.
--- NOTE | 2019-12-08 06:00 | NUR ---
NURSE NOTES: Pt's resting in bed, in no acute distress. VS stable. Will continue to monitor.
[2019-12-08] MEDS: Morphine Sulfate 4mg/ml Inj (IV USE ONLY) IVP PRN ×4 (06:39→18:41)
--- NOTE | 2019-12-08 06:40 | Pulmonolgy Critical Care Note ---
Critical Care - Asmt/Plan Problems: (1) Acute hypercapnic respiratory failure (2) Anemia, chronic renal failure (3) Paroxysmal A-fib (4) Acute on chronic renal insufficiency (5) Chronic hepatitis (6) Moderate pulmonary arterial systolic hypertension (7) Left ventricular ejection fraction greater than or equal to 40 percent (8) History of hypertension (9) Alzheimer's dementia (10) BPH (benign prostatic hyperplasia) Respiratory: monitor respiratory rate Cardiac: continue to monitor HR/BP Renal: other Gastrointestinal: hold feedings, other - npo Neurologic: PRN Ativan, PRN Morphine Disposition: transfer to - [facility] surg Notes 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 Looks comfortable on fentaly drip and morphine prn Critical Care - Objective Last 24 Hour Vital Signs Date Time Temp Pulse Resp B/P (MAP) Pulse Ox O2 Delivery O2 Flow Rate FiO2 12/08/19 06:00 109 24 121/80 (94) 50 12/08/19 06:00 24 Room Air 12/08/19 05:00 114 26 124/76 (92) 48 12/08/19 05:00 20 Room Air 12/08/19 04:00 114 28 144/83 (103) 49 12/08/19 04:00 110 12/08/19 04:00 20 Room Air 12/08/19 04:00 Mechanical Ventilator Mechanical Ventilator Mechanical Ventilator Mechanical Ventilator 12/08/19 03:00 112 27 144/89 (107) 49 12/08/19 03:00 20 Room Air 12/08/19 02:00 113 24 146/79 (101) 47 12/08/19 02:00 22 Room Air 12/08/19 01:30 106 23 133/81 (98) 42 12/08/19 01:00 108 24 150/86 (107) 46 12/08/19 01:00 22 Room Air 12/08/19 00:30 109 26 158/81 (106) 45 12/08/19 00:00 Mechanical Ventilator Mechanical Ventilator Mechanical Ventilator Mechanical Ventilator 12/08/19 00:00 22 Room Air 12/08/19 00:00 111 25 150/82 (104) 46 12/07/19 23:30 108 22 146/77 (100) 47 12/07/19 23:00 23 Room Air 12/07/19 23:00 102 23 133/92 (106) 49 12/07/19 22:00 106 24 140/81 (100) 50 12/07/19 22:00 22 Room Air 12/07/19 21:00 99 25 149/79 (102) 50 12/07/19 21:00 22 Room Air 12/07/19 20:00 94 22 147/93 (111) 53 12/07/19 20:00 Mechanical Ventilator Mechanical Ventilator Mechanical Ventilator Mechanical Ventilator 12/07/19 20:00 20 Room Air 12/07/19 20:00 119 12/07/19 19:00 94 27 135/75 (95) 62 12/07/19 19:00 27 Room Air 12/07/19 18:30 91 22 147/76 (99) 60 12/07/19 18:00 95 25 140/79 (99) 61 12/07/19 18:00 95 25 140/79 (99) 61 12/07/19 18:00 25 Room Air 12/07/19 17:00 24 Room Air 12/07/19 17:00 98 24 151/79 (103) 58 12/07/19 16:36 90 12/07/19 16:30 83 41 130/75 (93) 61 12/07/19 16:22 71 30 137/81 (99) 68 12/07/19 16:22 71 30 137/81 (99) 68 12/07/19 16:00 Mechanical Ventilator Mechanical Ventilator Mechanical Ventilator Mechanical Ventilator 12/07/19 16:00 60 12/07/19 16:00 15 Room Air 12/07/19 16:00 79 15 141/87 (105) 100 12/07/19 16:00 79 15 141/87 (105) 100 12/07/19 15:30 74 16 149/98 (115) 100 12/07/19 15:00 16 Room Air 12/07/19 15:00 74 16 142/87 (105) 100 12/07/19 14:35 91 16 60 12/07/19 14:30 88 14 153/97 (115) 99 12/07/19 14:00 79 16 148/88 (108) 99 12/07/19 14:00 16 Endotracheal Tube 60 12/07/19 13:30 95 16 149/96 (113) 99 12/07/19 13:20 102 16 60 12/07/19 13:03 165/119 12/07/19 13:00 90 14 181/116 (137) 99 12/07/19 13:00 14 Endotracheal Tube 60 12/07/19 12:30 72 16 165/119 (134) 100 12/07/19 12:17 83 12/07/19 12:00 99.7 79 16 171/116 (134) 100 12/07/19 12:00 Mechanical Ventilator Mechanical Ventilator Mechanical Ventilator Mechanical Ventilator 12/07/19 12:00 16 Endotracheal Tube 60 12/07/19 11:30 79 17 185/114 (137) 100 12/07/19 11:00 95 22 168/109 (128) 99 12/07/19 11:00 22 Endotracheal Tube 60 12/07/19 10:30 78 16 184/107 (132) 100 12/07/19 10:16 183/117 12/07/19 10:00 81 16 183/117 (139) 99 12/07/19 10:00 16 Endotracheal Tube 60 12/07/19 09:40 60 12/07/19 09:39 75 16 40 12/07/19 09:30 85 15 153/101 (118) 99 12/07/19 09:01 Endotracheal Tube 60 12/07/19 09:00 97 16 142/103 (116) 99 12/07/19 09:00 16 Endotracheal Tube 60 12/07/19 08:30 107 19 169/100 (123) 99 12/07/19 08:27 112 175/95 12/07/19 08:26 112 175/95 12/07/19 08:01 60 12/07/19 08:00 Mechanical Ventilator Mechanical Ventilator Mechanical Ventilator Mechanical Ventilator 12/07/19 08:00 27 Endotracheal Tube 60 12/07/19 08:00 99.4 112 27 175/95 (121) 95 12/07/19 07:43 91 18 40 12/07/19 07:26 93 12/07/19 07:00 97 25 156/90 (112) 97 12/07/19 07:00 24 Mechanical Ventilator 12/07/19 07:00 98.4 96 25 152/90 (110) 97 Status: obtunded Condition: critical, grave HEENT: atraumatic Lungs: rales, rhonchi Heart: HR/BP unstable Abdomen: soft, non-tender Extremities: no C/C/E Critical Care - Subjective ROS Limited/Unobtainable: Yes Condition: critical, grave EKG Rhythm: Sinus Tachycardia Vent Support Breath Rate: 16 Vent Support Mode: AC Vent Tidal Volume: 700 Sputum Amount: Small PEEP: 0.0 PIP: 47 Tube Feeding Amount: 40 I&O: Intake and Output 12/07/19 12/08/19 19:00 07:00 Intake Total 687 ml 39 ml Output Total 470 ml 130 ml Balance 217 ml -91 ml Free Water 120 ml IV Total 227 ml 39 ml Tube Feeding 280 ml Other 60 ml Output Urine Total 470 ml 130 ml # Bowel Movements 1 ET-Tube: 7.5 ET Position: 23 Susannah Hightower MD Dec 08, 2019 06:40
[2019-12-08] MEDS: Narcotic Shift Volume MISC SCH ×2 (07:19→15:23)
--- NOTE | 2019-12-08 07:20 | NUR ---
HAND-OFF: Report given to SYED Sewell.
--- NOTE | 2019-12-08 07:21 | NUR ---
NURSE NOTES: Received patient from Dimas RN. Patient is awake, opens eyes, alert and oriented x1. Patient is on comfort care, receiving oxygen via room air, agonal breathing noted, O2 saturation at 61%. Patient is A. Fib on the heart monitor HR 86-94. Chest tube is intact and draining. IV site is Left Upper Arm PICC receiving Fentanyl at 10mcg/hr. Bed is locked, placed in lowest position, side rails up x3, bed alarm on. Will continue to monitor.
--- NOTE | 2019-12-08 07:25 | General Progress Note ---
Assessment/Plan Status: stable, unchanged Assessment/Plan: Assessment/Plan: Assessment/Plan 1. atrial fibrillation. 2. Tachycardia. 3. Renal insufficiency. 4. Obstructive uropathy. 5. hypertension. 6. Prostatic hypertrophy. 7. History of latent tuberculosis. 8. History of heart failure. 9. History of hepatitis C infection. 10. Respiratory failure with respiratory acidosis, now on vent 11. UGIB 12. Proximal stomach ulcer and GIB, adherent clot, difficult visualization Recommendations TF - on hold end of life care on dieing protocol Subjective ROS Limited/Unobtainable: No Allergies: Coded Allergies: LISINOPRIL (Verified Allergy, Unknown, 11/21/19) SIMVASTATIN (Verified Allergy, Unknown, 11/21/19) TERAZOSIN (Verified Allergy, Unknown, 11/21/19) Subjective fever over night Objective Last 24 Hour Vital Signs Date Time Temp Pulse Resp B/P (MAP) Pulse Ox O2 Delivery O2 Flow Rate FiO2 12/08/19 06:00 109 24 121/80 (94) 50 12/08/19 06:00 24 Room Air 12/08/19 05:00 114 26 124/76 (92) 48 12/08/19 05:00 20 Room Air 12/08/19 04:00 114 28 144/83 (103) 49 12/08/19 04:00 110 12/08/19 04:00 20 Room Air 12/08/19 04:00 Mechanical Ventilator Mechanical Ventilator Mechanical Ventilator Mechanical Ventilator 12/08/19 03:00 112 27 144/89 (107) 49 12/08/19 03:00 20 Room Air 12/08/19 02:00 113 24 146/79 (101) 47 12/08/19 02:00 22 Room Air 12/08/19 01:30 106 23 133/81 (98) 42 12/08/19 01:00 108 24 150/86 (107) 46 12/08/19 01:00 22 Room Air 12/08/19 00:30 109 26 158/81 (106) 45 12/08/19 00:00 Mechanical Ventilator Mechanical Ventilator Mechanical Ventilator Mechanical Ventilator 12/08/19 00:00 22 Room Air 12/08/19 00:00 111 25 150/82 (104) 46 12/07/19 23:30 108 22 146/77 (100) 47 12/07/19 23:00 23 Room Air 12/07/19 23:00 102 23 133/92 (106) 49 12/07/19 22:00 106 24 140/81 (100) 50 12/07/19 22:00 22 Room Air 12/07/19 21:00 99 25 149/79 (102) 50 12/07/19 21:00 22 Room Air 12/07/19 20:00 94 22 147/93 (111) 53 12/07/19 20:00 Mechanical Ventilator Mechanical Ventilator Mechanical Ventilator Mechanical Ventilator 12/07/19 20:00 20 Room Air 12/07/19 20:00 119 12/07/19 19:00 94 27 135/75 (95) 62 12/07/19 19:00 27 Room Air 12/07/19 18:30 91 22 147/76 (99) 60 12/07/19 18:00 95 25 140/79 (99) 61 12/07/19 18:00 95 25 140/79 (99) 61 12/07/19 18:00 25 Room Air 12/07/19 17:00 24 Room Air 12/07/19 17:00 98 24 151/79 (103) 58 12/07/19 16:36 90 12/07/19 16:30 83 41 130/75 (93) 61 12/07/19 16:22 71 30 137/81 (99) 68 12/07/19 16:22 71 30 137/81 (99) 68 12/07/19 16:00 Mechanical Ventilator Mechanical Ventilator Mechanical Ventilator Mechanical Ventilator 12/07/19 16:00 60 12/07/19 16:00 15 Room Air 12/07/19 16:00 79 15 141/87 (105) 100 12/07/19 16:00 79 15 141/87 (105) 100 12/07/19 15:30 74 16 149/98 (115) 100 12/07/19 15:00 16 Room Air 12/07/19 15:00 74 16 142/87 (105) 100 12/07/19 14:35 91 16 60 12/07/19 14:30 88 14 153/97 (115) 99 12/07/19 14:00 79 16 148/88 (108) 99 12/07/19 14:00 16 Endotracheal Tube 60 12/07/19 13:30 95 16 149/96 (113) 99 12/07/19 13:20 102 16 60 12/07/19 13:03 165/119 12/07/19 13:00 90 14 181/116 (137) 99 12/07/19 13:00 14 Endotracheal Tube 60 12/07/19 12:30 72 16 165/119 (134) 100 12/07/19 12:17 83 12/07/19 12:00 99.7 79 16 171/116 (134) 100 12/07/19 12:00 Mechanical Ventilator Mechanical Ventilator Mechanical Ventilator Mechanical Ventilator 12/07/19 12:00 16 Endotracheal Tube 60 12/07/19 11:30 79 17 185/114 (137) 100 12/07/19 11:00 95 22 168/109 (128) 99 12/07/19 11:00 22 Endotracheal Tube 60 12/07/19 10:30 78 16 184/107 (132) 100 12/07/19 10:16 183/117 12/07/19 10:00 81 16 183/117 (139) 99 12/07/19 10:00 16 Endotracheal Tube 60 12/07/19 09:40 60 12/07/19 09:39 75 16 40 12/07/19 09:30 85 15 153/101 (118) 99 12/07/19 09:01 Endotracheal Tube 60 12/07/19 09:00 97 16 142/103 (116) 99 12/07/19 09:00 16 Endotracheal Tube 60 12/07/19 08:30 107 19 169/100 (123) 99 12/07/19 08:27 112 175/95 12/07/19 08:26 112 175/95 12/07/19 08:01 60 12/07/19 08:00 Mechanical Ventilator Mechanical Ventilator Mechanical Ventilator Mechanical Ventilator 12/07/19 08:00 27 Endotracheal Tube 60 12/07/19 08:00 99.4 112 27 175/95 (121) 95 12/07/19 07:43 91 18 40 12/07/19 07:26 93 Intake and Output 12/07/19 12/08/19 19:00 07:00 Intake Total 687 ml 39 ml Output Total 470 ml 130 ml Balance 217 ml -91 ml Free Water 120 ml IV Total 227 ml 39 ml Tube Feeding 280 ml Other 60 ml Output Urine Total 470 ml 130 ml # Bowel Movements 1 Height (Feet): 5 Height (Inches): 10.00 Weight (Pounds): 210 General Appearance: lethargic EENT: normal ENT inspection Neck: supple Cardiovascular: tachycardia Respiratory/Chest: decreased breath sounds Abdomen: normal bowel sounds, non tender, soft Extremities: non-tender Hunter Sierra MD Dec 08, 2019 07:25
[2019-12-08] MEDS: fentaNYL Citrate 1000 MCG in NS 100ml IV SCH (08:41)
--- NOTE | 2019-12-08 09:11 | NUR ---
NURSE NOTES: Oral care given to patient, turned and repositioned, oral suctioning given. Patient remains tachypneic RR 28. Will continue to monitor.
--- NOTE | 2019-12-08 09:53 | Nephrology Progress Note ---
Assessment/Plan Problem List: (1) Acute on chronic renal insufficiency Assessment: Serum creatinine leveling off around 5 (2) Acute hypercapnic respiratory failure (3) Anemia in chronic kidney disease (CKD) (4) BPH (benign prostatic hyperplasia) (5) Pneumothorax on left Assessment: Has chest tube Assessment Acute renal failure Possible underlying chronic kidney failure Hyperkalemia Anemia other conditions: (1) Acute hypercapnic respiratory failure (2) Paroxysmal A-fib (3) Anemia, chronic renal failure (4) History of hypertension (5) Alzheimer's dementia (6) Chronic hepatitis (7) BPH (benign prostatic hyperplasia) Plan Patient is now on comfort care and was extubated earlier. Hypotensive. Appears preterminal. Not much more to add from renal standpoint of view. Will sign off. Previous actions: IV potassium chloride supplement as needed Monitor serum creatinine, it is rising again if remains full code may require hemodialysis Patient now on NG feeding Patient was transfused previously. Adjust blood pressure medication Protonix drip to IV every 12 hours Off aspirin Carafate through NG tube Per GI Stop hydration Nitrate May require hemodialysis treatments at home Previously: Trial of Zaroxolyn as chest x-ray indicates worsening CHF as needed Monitor intake and output Monitor renal parameters Avoid nephrotoxic's Kidney ultrasound results noted indicative of chronicity 2D echocardiogram result noted ejection fraction 55% Anemia work-up noted Per orders Discussed with Dr. Zaidi Subjective ROS Limited/Unobtainable: Yes Objective Objective Last 24 Hour Vital Signs Date Time Temp Pulse Resp B/P (MAP) Pulse Ox O2 Delivery O2 Flow Rate FiO2 12/08/19 09:00 94 28 79/55 (63) 56 12/08/19 09:00 28 Endotracheal Tube 60 12/08/19 08:41 24 Room Air 60 12/08/19 08:22 112 12/08/19 08:00 99.1 101 37 79/47 (58) 62 12/08/19 08:00 Mechanical Ventilator Mechanical Ventilator Mechanical Ventilator Mechanical Ventilator 12/08/19 07:00 108 28 93/61 (72) 54 12/08/19 07:00 24 Room Air 12/08/19 06:00 109 24 121/80 (94) 50 12/08/19 06:00 24 Room Air 12/08/19 05:00 114 26 124/76 (92) 48 12/08/19 05:00 20 Room Air 12/08/19 04:00 114 28 144/83 (103) 49 12/08/19 04:00 110 12/08/19 04:00 20 Room Air 12/08/19 04:00 Mechanical Ventilator Mechanical Ventilator Mechanical Ventilator Mechanical Ventilator 12/08/19 03:00 112 27 144/89 (107) 49 12/08/19 03:00 20 Room Air 12/08/19 02:00 113 24 146/79 (101) 47 12/08/19 02:00 22 Room Air 12/08/19 01:30 106 23 133/81 (98) 42 12/08/19 01:00 108 24 150/86 (107) 46 12/08/19 01:00 22 Room Air 12/08/19 00:30 109 26 158/81 (106) 45 12/08/19 00:00 Mechanical Ventilator Mechanical Ventilator Mechanical Ventilator Mechanical Ventilator 12/08/19 00:00 22 Room Air 12/08/19 00:00 111 25 150/82 (104) 46 12/07/19 23:30 108 22 146/77 (100) 47 12/07/19 23:00 23 Room Air 12/07/19 23:00 102 23 133/92 (106) 49 12/07/19 22:00 106 24 140/81 (100) 50 12/07/19 22:00 22 Room Air 12/07/19 21:00 99 25 149/79 (102) 50 12/07/19 21:00 22 Room Air 12/07/19 20:00 94 22 147/93 (111) 53 12/07/19 20:00 Mechanical Ventilator Mechanical Ventilator Mechanical Ventilator Mechanical Ventilator 12/07/19 20:00 20 Room Air 12/07/19 20:00 119 12/07/19 19:00 94 27 135/75 (95) 62 12/07/19 19:00 27 Room Air 12/07/19 18:30 91 22 147/76 (99) 60 12/07/19 18:00 95 25 140/79 (99) 61 12/07/19 18:00 95 25 140/79 (99) 61 12/07/19 18:00 25 Room Air 12/07/19 17:00 24 Room Air 12/07/19 17:00 98 24 151/79 (103) 58 12/07/19 16:36 90 12/07/19 16:30 83 41 130/75 (93) 61 12/07/19 16:22 71 30 137/81 (99) 68 12/07/19 16:22 71 30 137/81 (99) 68 12/07/19 16:00 Mechanical Ventilator Mechanical Ventilator Mechanical Ventilator Mechanical Ventilator 12/07/19 16:00 60 12/07/19 16:00 15 Room Air 12/07/19 16:00 79 15 141/87 (105) 100 12/07/19 16:00 79 15 141/87 (105) 100 12/07/19 15:30 74 16 149/98 (115) 100 12/07/19 15:00 16 Room Air 12/07/19 15:00 74 16 142/87 (105) 100 12/07/19 14:35 91 16 60 12/07/19 14:30 88 14 153/97 (115) 99 12/07/19 14:00 79 16 148/88 (108) 99 12/07/19 14:00 16 Endotracheal Tube 60 12/07/19 13:30 95 16 149/96 (113) 99 12/07/19 13:20 102 16 60 12/07/19 13:03 165/119 12/07/19 13:00 90 14 181/116 (137) 99 12/07/19 13:00 14 Endotracheal Tube 60 12/07/19 12:30 72 16 165/119 (134) 100 12/07/19 12:17 83 12/07/19 12:00 99.7 79 16 171/116 (134) 100 12/07/19 12:00 Mechanical Ventilator Mechanical Ventilator Mechanical Ventilator Mechanical Ventilator 12/07/19 12:00 16 Endotracheal Tube 60 12/07/19 11:30 79 17 185/114 (137) 100 12/07/19 11:00 95 22 168/109 (128) 99 12/07/19 11:00 22 Endotracheal Tube 60 12/07/19 10:30 78 16 184/107 (132) 100 12/07/19 10:16 183/117 12/07/19 10:00 81 16 183/117 (139) 99 12/07/19 10:00 16 Endotracheal Tube 60 Intake and Output 12/07/19 12/08/19 19:00 07:00 Intake Total 687 ml 40 ml Output Total 470 ml 130 ml Balance 217 ml -90 ml Free Water 120 ml IV Total 227 ml 40 ml Tube Feeding 280 ml Other 60 ml Output Urine Total 470 ml 130 ml # Bowel Movements 1 Height (Feet): 5 Height (Inches): 10.00 Weight (Pounds): 210 General Appearance: no apparent distress, lethargic EENT: other - Patient not terminally extubated Cardiovascular: tachycardia Respiratory/Chest: decreased breath sounds Abdomen: distended Objective No change Reynold Ellison MD Dec 08, 2019 09:53
--- NOTE | 2019-12-08 12:25 | NUR ---
NURSE NOTES: Gave oral care to patient, turned and repositioned. Patient remains tachypneic RR 33, O2 saturation 83%. Will continue to monitor.
--- NOTE | 2019-12-08 15:30 | Internal Med Progress Note ---
Subjective Date of Service: Dec 08, 2019 Physician Name Abisai Zamarripa Attending Physician Claude Garza MD Current Medications Medications (Trade) Dose Ordered Sig/Cyndi Route PRN Reason Start Time Stop Time Status Last Admin Dose Admin Acetaminophen (Tylenol) 650 mg Q4H PRN NG Fever 11/21/19 13:00 12/21/19 08:14 12/06/19 02:04 Artificial Tears (Akwa-Tears) 1 drop QIDPRN PRN BOTH EYES Dry Eyes 12/07/19 14:30 01/06/20 14:29 Chlorhexidine Gluconate (Corrie-Hex 2%) 1 applic DAILY@1999 TOPIC 11/27/19 20:00 02/25/20 19:59 12/06/19 20:43 Dextrose (Dextrose 50%) 25 ml Q30M PRN IV Hypoglycemia 11/21/19 08:15 02/19/20 08:14 Dextrose (Dextrose 50%) 50 ml Q30M PRN IV Hypoglycemia 11/21/19 08:15 02/19/20 08:14 Fentanyl Citrate 1000 mcg/Sodium Chloride 100 ml @ 0 mls/hr Q24H IV 12/05/19 09:00 12/12/19 08:59 12/08/19 08:41 Glycopyrrolate (Robinul) 0.1 mg Q6H PRN IV excessive secretions 12/07/19 14:30 01/06/20 14:29 12/08/19 10:55 Haloperidol Lactate (Haldol) 1 mg Q30M PRN IM Agitation 12/07/19 14:30 01/21/20 14:29 Lorazepam (Ativan 2mg/ml 1ml) 1 mg Q6HR PRN IV Agitation 12/03/19 20:00 12/10/19 19:59 12/06/19 03:07 Miscellaneous Medication (Narcotic Drip Rate Change) 1 ea DAILY PRN MISC To Patient Comfort 12/07/19 14:30 01/06/20 14:29 Miscellaneous Medication (Narcotic Shift Volume) 1 ea Q8HR@07,15,23 MISC 12/07/19 14:30 01/06/20 14:29 12/08/19 15:23 Morphine Sulfate 30 ml @ 0 mls/hr SET KEY DRIVER Protocol PRN IV For Pain 12/07/19 14:30 12/09/19 14:29 Morphine Sulfate (Morphine Sulfate) 4 mg EVERY HOUR PRN IVP for tachypnea more than 20 12/08/19 06:30 12/15/19 06:29 12/08/19 15:06 Prochlorperazine (Compazine) 10 mg Q6H PRN ORAL Nausea & Vomiting 12/07/19 14:30 01/06/20 14:29 Allergies: Coded Allergies: LISINOPRIL (Verified Allergy, Unknown, 11/21/19) SIMVASTATIN (Verified Allergy, Unknown, 11/21/19) TERAZOSIN (Verified Allergy, Unknown, 11/21/19) ROS Limited/Unobtainable: Yes Subjective 83 YO M admitted with respiratory failure. Now pneumonia, UTI and sepsis. Cover for [facility] Med-DR Garza. Intubated and sedated. ICU Objective Last Vital Signs Date Time Temp Pulse Resp B/P (MAP) Pulse Ox O2 Delivery O2 Flow Rate FiO2 12/08/19 15:00 86 31 139/91 (107) 85 12/08/19 14:00 Room Air 12/08/19 12:00 99.0 12/08/19 09:00 60 Intake and Output 12/07/19 12/08/19 19:00 07:00 Intake Total 687 ml 40 ml Output Total 470 ml 130 ml Balance 217 ml -90 ml Free Water 120 ml IV Total 227 ml 40 ml Tube Feeding 280 ml Other 60 ml Output Urine Total 470 ml 130 ml # Bowel Movements 1 Objective PHYSICAL EXAMINATION: GENERAL: The patient is well-developed, well-nourished male, who is intubated and sedated in the intensive care unit. HEENT: Eyes, pupils are equal and responsive to light and accommodation. Extraocular movements are intact. NECK: Supple without lymphadenopathy. CHEST: Intubated; Bilateral expiratory air sounds, otherwise clear to auscultation without rales. CARDIOVASCULAR: Regular rhythm and rate. S1 and S2 normal without murmurs, rubs, or gallops. ABDOMEN: Soft, nontender, and nondistended. Positive bowel sounds. No evidence of hepatosplenomegaly. Currently, no rebound or guarding noted. EXTREMITIES: Negative for clubbing, cyanosis, or edema. RECTAL/GENITAL: Not performed. NEUROLOGIC: Cranial nerves II through XII are grossly intact without focal deficits. Motor strength is 5/5 bilaterally. Deep tendon reflexes are 2+ plantar. Assessment/Plan Assessment/Plan ASSESSMENT: This is an 83-year-old male. 1. Respiratory failure. 2. Congestive heart failure. 3. Atrial fibrillation. 4. Altered mental status. 5. Urinary tract infection. 6. Renal failure. 7. Hypertension. 8. Alzheimer's dementia. 9. Benign prostatic hypertrophy. 10. urinary tract infection-ESBL E. Coli and pseudamonas aeruginosa. 11. Sepsis-Staph Warneri 12. pneumonia=pseudamonas aeruginosa 13. Severe anemia 14. Worsening leukocytosis TREATMENT: 1. Congestive heart failure. A Cardiology consultation has been obtained with Dr. Vasu Zaidi. We will follow recommendations of Cardiology. The patient is currently receiving intravenous Lasix. 2. Respiratory failure. A Pulmonary consultation has been obtained with Dr. Susannah Hightower. Vent per pulmonary We will follow recommendations of Pulmonary. ABX=meropenem and vanco per ID=Dr Hicks 3. Atrial fibrillation as above. A Cardiology consultation has been obtained with Dr. Vasu Zaidi. 4. Renal failure. A Nephrology consultation has been obtained with Dr. Ellisno. We will follow recommendations of Nephrology. 5. Hypertension. The patient is currently hypotensive in the intensive care unit. 6. Alzheimer's dementia. 7. Benign prostatic hypertrophy. 8. ABX = meropenem per ID 9. S/P transfusion 5 units PRBC total Abisai Zamarripa MD Dec 08, 2019 15:30
--- NOTE | 2019-12-08 19:22 | NUR ---
TRANSFER TO FLOOR: Patient transferred to Med Surg, per Dr. Hightower. Report given to Lnin LYNCH. Belongings and medications given to oncoming nurse. Family and or S/O informed of transfer.
[2019-12-08] MEDS ORDERED: Acetaminophen 650mg/20.3ml NG PRN (19:41)
[2019-12-08] MEDS ORDERED: LORazepam Inj 2mg/ml 1ml IV PRN (19:44)
[2019-12-08] MEDS ORDERED: Morphine Sulfate 4mg/ml Inj (IV USE ONLY) IVP PRN (20:00)
[2019-12-08] MEDS ORDERED: Glycopyrrolate 0.2mg/ml 1ml Vial IV PRN (20:00)
[2019-12-08] MEDS ORDERED: Haloperidol 5mg/ml Inj IM PRN (20:00)
[2019-12-08] MEDS: Dyna-Hex 2% Top Sol 2oz TOPIC SCH (20:09)
[2019-12-08] MEDS ORDERED: Prochlorperazine 10mg tab ORAL PRN (21:00)
--- NOTE | 2019-12-08 21:05 | NUR ---
NURSE NOTES: Received patient awake, confused, non-verbal, on comfort measures. Kept clean and dry.
[2019-12-09] VITALS (15 sets, daily range): BP systolic 0–188; BP diastolic 0–116
--- NOTE | 2019-12-09 07:00 | NUR ---
NURSE NOTES: Received patient in bed. Awake, nonverbal. Patient traces with eyes. On room air. Chest tube in place in left chest, PICC line in left upper arm, site is intact, dressing dry and intact. No signs of pain noted at this time. On air mattress, bed rails up x2, bed low and locked, call light within reach.
--- NOTE | 2019-12-09 07:05 | NUR ---
HAND-OFF: Report given to Linn LYNCH.
--- NOTE | 2019-12-09 07:09 | NUR ---
HAND-OFF: Report given to Palmer Malik RN.
[2019-12-09] MEDS ORDERED: PCA Morphine 1mg/ml 30 ML IV PRN (07:30)
[2019-12-09] MEDS ORDERED: Rate Change Narcotic Drip MISC PRN (07:32)
--- NOTE | 2019-12-09 07:33 | Pulmonology Progress Note ---
Assessment/Plan Problems: (1) Cardiac arrest (2) Pneumothorax on left (3) Renal failure (4) Chronic hepatitis (5) Alzheimer's dementia (6) Acute hypercapnic respiratory failure Assessment/Plan comfort care morphine drip ativan prn keep pt comfortable Subjective ROS Limited/Unobtainable: Yes Interval Events: obtunded, Allergies: Coded Allergies: LISINOPRIL (Verified Allergy, Unknown, 11/21/19) SIMVASTATIN (Verified Allergy, Unknown, 11/21/19) TERAZOSIN (Verified Allergy, Unknown, 11/21/19) Objective Last 24 Hour Vital Signs Date Time Temp Pulse Resp B/P (MAP) Pulse Ox O2 Delivery O2 Flow Rate FiO2 12/09/19 04:00 99.2 89 20 181/108 (132) 89 12/09/19 00:05 98.2 84 20 172/87 (115) 86 12/08/19 20:31 Room Air Room Air Room Air Room Air 12/08/19 19:58 97.7 102 18 146/86 (106) 86 12/08/19 18:00 90 22 146/98 (114) 91 12/08/19 17:00 87 19 140/101 (114) 84 12/08/19 16:00 99.2 90 22 124/83 (97) 82 12/08/19 16:00 Mechanical Ventilator Mechanical Ventilator Mechanical Ventilator Mechanical Ventilator 12/08/19 15:23 88 12/08/19 15:00 86 31 139/91 (107) 85 12/08/19 15:00 31 Room Air 12/08/19 14:00 84 32 118/75 (89) 90 12/08/19 14:00 32 Room Air 12/08/19 13:00 79 35 109/65 (80) 89 12/08/19 13:00 35 Room Air 12/08/19 12:10 90 12/08/19 12:00 99.0 83 21 87/54 (65) 81 12/08/19 12:00 21 Room Air 12/08/19 12:00 Mechanical Ventilator Mechanical Ventilator Mechanical Ventilator Mechanical Ventilator 12/08/19 11:33 99.1 12/08/19 11:00 43 Room Air 12/08/19 11:00 106 43 109/62 (78) 87 12/08/19 10:00 30 Room Air 12/08/19 10:00 82 30 79/55 (63) 65 12/08/19 09:00 94 28 79/55 (63) 56 12/08/19 09:00 28 Room Air 60 12/08/19 08:41 24 Room Air 60 12/08/19 08:22 112 12/08/19 08:00 99.1 101 37 79/47 (58) 62 12/08/19 08:00 Mechanical Ventilator Mechanical Ventilator Mechanical Ventilator Mechanical Ventilator Intake and Output 12/08/19 12/09/19 19:00 07:00 Intake Total 7 ml 0 ml Output Total 1680 ml Balance 7 ml -1680 ml Intake Oral 0 ml IV Total 7 ml Output Urine Total 1600 ml Chest Tube Drainage Total 80 ml HEENT: normocephalic, atraumatic Respiratory/Chest: chest wall non-tender Cardiovascular: normal peripheral pulses, normal rate Abdomen: normal bowel sounds, soft, non tender Genitourinary: normal external genitalia Extremities: no clubbing Neurologic/Psychiatric: operating cost clerk II-XII grossly normal Current Medications Medications (Trade) Dose Ordered Sig/Cyndi Route PRN Reason Start Time Stop Time Status Last Admin Dose Admin Acetaminophen (Tylenol) 650 mg Q4H PRN NG Fever 12/08/19 19:41 12/21/19 19:40 Artificial Tears (Akwa-Tears) 1 drop QIDPRN PRN BOTH EYES Dry Eyes 12/09/19 14:30 01/06/20 14:29 Chlorhexidine Gluconate (Corrie-Hex 2%) 1 applic DAILY@2000 TOPIC 12/08/19 20:00 02/25/20 19:59 12/08/19 20:09 Dextrose (Dextrose 50%) 25 ml Q30M PRN IV Hypoglycemia 12/08/19 19:45 02/19/20 08:14 Dextrose (Dextrose 50%) 50 ml Q30M PRN IV Hypoglycemia 12/08/19 19:45 02/19/20 08:14 Glycopyrrolate (Robinul) 0.1 mg Q6H PRN IV excessive secretions 12/08/19 20:00 01/06/20 19:59 Haloperidol Lactate (Haldol) 1 mg Q30M PRN IM Agitation 12/08/19 20:00 01/21/20 19:59 Lorazepam (Ativan 2mg/ml 1ml) 1 mg Q6HR PRN IV Agitation 12/08/19 19:44 12/15/19 19:43 Morphine Sulfate 30 ml @ 0 mls/hr BILLPOSTER Protocol PRN IV For Pain 12/09/19 07:30 12/11/19 07:29 UNV Morphine Sulfate (Morphine Sulfate) 4 mg EVERY HOUR PRN IVP for tachypnea more than 20 12/08/19 20:00 12/15/19 06:29 Susannah Hightower MD Dec 09, 2019 07:33
--- NOTE | 2019-12-09 10:00 | General Progress Note ---
Assessment/Plan Status: stable, unchanged Assessment/Plan: Assessment/Plan: Assessment/Plan 1. atrial fibrillation. 2. Tachycardia. 3. Renal insufficiency. 4. Obstructive uropathy. 5. hypertension. 6. Prostatic hypertrophy. 7. History of latent tuberculosis. 8. History of heart failure. 9. History of hepatitis C infection. 10. Respiratory failure with respiratory acidosis, now on vent 11. UGIB 12. Proximal stomach ulcer and GIB, adherent clot, difficult visualization Recommendations TF - on hold end of life care on dieing protocol Subjective ROS Limited/Unobtainable: No Allergies: Coded Allergies: LISINOPRIL (Verified Allergy, Unknown, 11/21/19) SIMVASTATIN (Verified Allergy, Unknown, 11/21/19) TERAZOSIN (Verified Allergy, Unknown, 11/21/19) Subjective fever over night Objective Last 24 Hour Vital Signs Date Time Temp Pulse Resp B/P (MAP) Pulse Ox O2 Delivery O2 Flow Rate FiO2 12/09/19 08:00 97.5 108 26 184/116 (138) 89 12/09/19 04:00 99.2 89 20 181/108 (132) 89 12/09/19 00:05 98.2 84 20 172/87 (115) 86 12/08/19 20:31 Room Air Room Air Room Air Room Air 12/08/19 19:58 97.7 102 18 146/86 (106) 86 12/08/19 18:00 90 22 146/98 (114) 91 12/08/19 17:00 87 19 140/101 (114) 84 12/08/19 16:00 99.2 90 22 124/83 (97) 82 12/08/19 16:00 Mechanical Ventilator Mechanical Ventilator Mechanical Ventilator Mechanical Ventilator 12/08/19 15:23 88 12/08/19 15:00 86 31 139/91 (107) 85 12/08/19 15:00 31 Room Air 12/08/19 14:00 84 32 118/75 (89) 90 12/08/19 14:00 32 Room Air 12/08/19 13:00 79 35 109/65 (80) 89 12/08/19 13:00 35 Room Air 12/08/19 12:10 90 12/08/19 12:00 99.0 83 21 87/54 (65) 81 12/08/19 12:00 21 Room Air 12/08/19 12:00 Mechanical Ventilator Mechanical Ventilator Mechanical Ventilator Mechanical Ventilator 12/08/19 11:33 99.1 12/08/19 11:00 43 Room Air 12/08/19 11:00 106 43 109/62 (78) 87 12/08/19 10:00 30 Room Air 12/08/19 10:00 82 30 79/55 (63) 65 Intake and Output 12/08/19 12/09/19 19:00 07:00 Intake Total 7 ml 0 ml Output Total 1680 ml Balance 7 ml -1680 ml Intake Oral 0 ml IV Total 7 ml Output Urine Total 1600 ml Chest Tube Drainage Total 80 ml Height (Feet): 5 Height (Inches): 10.00 Weight (Pounds): 237 General Appearance: no apparent distress EENT: normal ENT inspection Neck: supple Cardiovascular: normal rate Respiratory/Chest: decreased breath sounds Abdomen: normal bowel sounds, non tender, soft Extremities: non-tender Hunter Sierra MD Dec 09, 2019 10:00
--- NOTE | 2019-12-09 10:28 | Nephrology Progress Note ---
Assessment/Plan Problem List: (1) Acute on chronic renal insufficiency Assessment: Serum creatinine leveling off around 5 (2) Acute hypercapnic respiratory failure (3) Anemia in chronic kidney disease (CKD) (4) BPH (benign prostatic hyperplasia) (5) Pneumothorax on left Assessment: Has chest tube Assessment Acute renal failure Possible underlying chronic kidney failure Hyperkalemia Anemia other conditions: (1) Acute hypercapnic respiratory failure (2) Paroxysmal A-fib (3) Anemia, chronic renal failure (4) History of hypertension (5) Alzheimer's dementia (6) Chronic hepatitis (7) BPH (benign prostatic hyperplasia) Plan Patient is now on comfort care and was extubated earlier. Hypotensive. Not much more to add from renal standpoint of view. Patient's blood pressure went up after discontinuation of all blood pressure medications. I suggest to liberalize the comfort care medications Not much to add from renal standpoint of view Previous actions: IV potassium chloride supplement as needed Monitor serum creatinine, it is rising again if remains full code may require hemodialysis Patient now on NG feeding Patient was transfused previously. Adjust blood pressure medication Protonix drip to IV every 12 hours Off aspirin Carafate through NG tube Per GI Stop hydration Nitrate May require hemodialysis treatments at home Previously: Trial of Zaroxolyn as chest x-ray indicates worsening CHF as needed Monitor intake and output Monitor renal parameters Avoid nephrotoxic's Kidney ultrasound results noted indicative of chronicity 2D echocardiogram result noted ejection fraction 55% Anemia work-up noted Per orders Discussed with Dr. Zaidi Subjective ROS Limited/Unobtainable: Yes Objective Objective Last 24 Hour Vital Signs Date Time Temp Pulse Resp B/P (MAP) Pulse Ox O2 Delivery O2 Flow Rate FiO2 12/09/19 08:00 97.5 108 26 184/116 (138) 89 12/09/19 04:00 99.2 89 20 181/108 (132) 89 12/09/19 00:05 98.2 84 20 172/87 (115) 86 12/08/19 20:31 Room Air Room Air Room Air Room Air 12/08/19 19:58 97.7 102 18 146/86 (106) 86 12/08/19 18:00 90 22 146/98 (114) 91 12/08/19 17:00 87 19 140/101 (114) 84 12/08/19 16:00 99.2 90 22 124/83 (97) 82 12/08/19 16:00 Mechanical Ventilator Mechanical Ventilator Mechanical Ventilator Mechanical Ventilator 12/08/19 15:23 88 12/08/19 15:00 86 31 139/91 (107) 85 12/08/19 15:00 31 Room Air 12/08/19 14:00 84 32 118/75 (89) 90 12/08/19 14:00 32 Room Air 12/08/19 13:00 79 35 109/65 (80) 89 12/08/19 13:00 35 Room Air 12/08/19 12:10 90 12/08/19 12:00 99.0 83 21 87/54 (65) 81 12/08/19 12:00 21 Room Air 12/08/19 12:00 Mechanical Ventilator Mechanical Ventilator Mechanical Ventilator Mechanical Ventilator 12/08/19 11:33 99.1 12/08/19 11:00 43 Room Air 12/08/19 11:00 106 43 109/62 (78) 87 Intake and Output 12/08/19 12/09/19 19:00 07:00 Intake Total 7 ml 0 ml Output Total 1680 ml Balance 7 ml -1680 ml Intake Oral 0 ml IV Total 7 ml Output Urine Total 1600 ml Chest Tube Drainage Total 80 ml Height (Feet): 5 Height (Inches): 10.00 Weight (Pounds): 237 General Appearance: no apparent distress, lethargic Cardiovascular: other - Rate variable Respiratory/Chest: other - Continues to have the chest tube in place Objective No change Reynold Ellison MD Dec 09, 2019 10:27
[2019-12-09] MEDS: PCA Morphine 30mg/30ml IV PRN ×2 (11:12→16:43)
[2019-12-09] MEDS: Narcotic Shift Volume MISC SCH ×2 (15:00→23:00)
--- NOTE | 2019-12-09 16:50 | NUR ---
NURSE NOTES: STAFF GENETIC COUNSELOR morphine wasted at the pharmacy. 2.34mL wasted.
--- NOTE | 2019-12-09 18:10 | Internal Med Progress Note ---
Subjective Date of Service: Dec 09, 2019 Physician Name Abisai Zamarripa Attending Physician Claude Garza MD Current Medications Medications (Trade) Dose Ordered Sig/Cyndi Route PRN Reason Start Time Stop Time Status Last Admin Dose Admin Acetaminophen (Tylenol) 650 mg Q4H PRN NG Fever 12/08/19 19:41 12/21/19 19:40 Artificial Tears (Akwa-Tears) 1 drop QIDPRN PRN BOTH EYES Dry Eyes 12/09/19 14:30 01/06/20 14:29 Chlorhexidine Gluconate (Corrie-Hex 2%) 1 applic DAILY@1999 TOPIC 12/08/19 20:00 02/25/20 19:59 12/08/19 20:09 Dextrose (Dextrose 50%) 25 ml Q30M PRN IV Hypoglycemia 12/08/19 19:45 02/19/20 08:14 Dextrose (Dextrose 50%) 50 ml Q30M PRN IV Hypoglycemia 12/08/19 19:45 02/19/20 08:14 Glycopyrrolate (Robinul) 0.1 mg Q6H PRN IV excessive secretions 12/08/19 20:00 01/06/20 19:59 Haloperidol Lactate (Haldol) 1 mg Q30M PRN IM Agitation 12/08/19 20:00 01/21/20 19:59 Lorazepam (Ativan 2mg/ml 1ml) 1 mg Q6HR PRN IV Agitation 12/08/19 19:44 12/15/19 19:43 Miscellaneous Medication (Narcotic Drip Rate Change) 1 ea DAILY PRN MISC . 12/09/19 07:32 01/08/20 07:31 Miscellaneous Medication (Narcotic Shift Volume) 1 ea Q8HR@07,15,23 MISC 12/09/19 15:00 01/08/20 14:59 12/09/19 15:00 Morphine Sulfate 30 ml @ 5 mls/hr SQUEEGEE OPERATOR Protocol PRN IV For Pain 12/09/19 07:34 12/11/19 07:33 12/09/19 16:43 Morphine Sulfate (Morphine Sulfate) 4 mg EVERY HOUR PRN IVP for tachypnea more than 20 12/08/19 20:00 12/15/19 06:29 Naloxone HCl (Narcan) 0.1 mg Q1M PRN IV RR<10/min OR SBP<90 mmHg 12/09/19 07:45 12/11/19 07:33 Allergies: Coded Allergies: LISINOPRIL (Verified Allergy, Unknown, 11/21/19) SIMVASTATIN (Verified Allergy, Unknown, 11/21/19) TERAZOSIN (Verified Allergy, Unknown, 11/21/19) ROS Limited/Unobtainable: Yes Subjective 83 YO M admitted with respiratory failure. Now pneumonia, UTI and sepsis. Cover for [facility] Med-DR Garza. Intubated and sedated. ICU Objective Last Vital Signs Date Time Temp Pulse Resp B/P (MAP) Pulse Ox O2 Delivery O2 Flow Rate FiO2 12/09/19 17:15 103 22 99 12/09/19 16:00 98.0 172/104 (126) 12/09/19 09:00 Simple Mask 3.0 Simple Mask 3.0 Simple Mask 3.0 Simple Mask 3.0 12/08/19 09:00 60 Intake and Output 12/08/19 12/09/19 19:00 07:00 Intake Total 7 ml 0 ml Output Total 1680 ml Balance 7 ml -1680 ml Intake Oral 0 ml IV Total 7 ml Output Urine Total 1600 ml Chest Tube Drainage Total 80 ml Objective PHYSICAL EXAMINATION: GENERAL: The patient is well-developed, well-nourished male, who is intubated and sedated in the intensive care unit. HEENT: Eyes, pupils are equal and responsive to light and accommodation. Extraocular movements are intact. NECK: Supple without lymphadenopathy. CHEST: Intubated; Bilateral expiratory air sounds, otherwise clear to auscultation without rales. CARDIOVASCULAR: Regular rhythm and rate. S1 and S2 normal without murmurs, rubs, or gallops. ABDOMEN: Soft, nontender, and nondistended. Positive bowel sounds. No evidence of hepatosplenomegaly. Currently, no rebound or guarding noted. EXTREMITIES: Negative for clubbing, cyanosis, or edema. RECTAL/GENITAL: Not performed. NEUROLOGIC: Cranial nerves II through XII are grossly intact without focal deficits. Motor strength is 5/5 bilaterally. Deep tendon reflexes are 2+ plantar. Assessment/Plan Assessment/Plan ASSESSMENT: This is an 83-year-old male. 1. Respiratory failure. 2. Congestive heart failure. 3. Atrial fibrillation. 4. Altered mental status. 5. Urinary tract infection. 6. Renal failure. 7. Hypertension. 8. Alzheimer's dementia. 9. Benign prostatic hypertrophy. 10. urinary tract infection-ESBL E. Coli and pseudamonas aeruginosa. 11. Sepsis-Staph Warneri 12. pneumonia=pseudamonas aeruginosa 13. Severe anemia 14. Worsening leukocytosis TREATMENT: 1. Congestive heart failure. A Cardiology consultation has been obtained with Dr. Vasu Zaidi. We will follow recommendations of Cardiology. The patient is currently receiving intravenous Lasix. 2. Respiratory failure. A Pulmonary consultation has been obtained with Dr. Susannah Hightower. Vent per pulmonary We will follow recommendations of Pulmonary. ABX=meropenem and vanco per ID=Dr Hicks 3. Atrial fibrillation as above. A Cardiology consultation has been obtained with Dr. Vasu Zaidi. 4. Renal failure. A Nephrology consultation has been obtained with Dr. Ellison. We will follow recommendations of Nephrology. 5. Hypertension. The patient is currently hypotensive in the intensive care unit. 6. Alzheimer's dementia. 7. Benign prostatic hypertrophy. 8. ABX = meropenem per ID 9. S/P transfusion 5 units PRBC total Abisai Zamarripa MD Dec 09, 2019 18:10
[2019-12-09] MEDS: Dyna-Hex 2% Top Sol 2oz TOPIC SCH (20:08)
--- NOTE | 2019-12-09 20:19 | NUR ---
NURSE NOTES: Received patient lethargic, on morphine drip for comfort measures. Kept clean and dry.
[2019-12-09] MEDS ORDERED: Tubing IV Secondary IV ONE (23:24)
[2019-12-09] MEDS ORDERED: NS 500ML ONE (23:24)
--- NOTE | 2019-12-09 23:25 | NUR ---
PRONOUNCEMENT: No Code. Called to pronounce patient. Absence of spontaneous respirations, no cardiac or breath sounds on auscultation. Pupils fixed and dilated. No carotid pulse or chest movement. Patient at 2325. DR Garza notified PER Kellee Conley. Daughter Luis Miguel was notified at 2333 by Kellee Conley.
--- NOTE | 2019-12-09 23:35 | NUR ---
NURSE NOTES: Pronounced by Chelsi Densie-Charge nurse at [address] Garza informed and also the daughter named Duarte Bolanos. Relative will make arrangements for the mortuary and will contact nursing office tomorrow.
--- NOTE | 2019-12-11 10:08 | Discharge Summary ---
Discharge Summary Discharge Summary _ SUMMARY DATE OF ADMISSION: 11/21/2019 DATE OF EXPIRATION: 12/09/2019 REASON FOR ADMISSION: 84 years old male with past medical history of congestive heart failure, hypertension, atrial fibrillation, chronic kidney disease, hepatitis C, history of latent tuberculosis, osteoarthritis, dementia, presented with altered mental status. Patient was hypoxic and tachycardic, blood pressure initially stable dropped to 97/67. Patient was lethargic. Laboratory work-up revealed leukocytosis WBC 11.1 hemoglobin 10.7, hematocrit 34 , platelet count 346. Lactic acid 4.5 . Urinalysis revealed gross evidence of urinary tract infection. Chemistry revealed potassium 6.1, BUN 87, creatinine 6.7. Glucose 128. Troponin 0.026, pro BNP > 35,000. ECG revealed atrial fibrillation with rapid ventricular response. Chest x-ray demonstrated left pleural effusion. Congestive heart failure. Hazy opacity over the left hemithorax which may be a pleural effusion. Septic work-up initiated . Patient received fluid resuscitation, pancultured and started on empiric antibiotics. Hyperkalemia treated. Patient received nebulizing treatment with bronchodilator. Unable to place BiPAP due to altered mentation. ABG revealed evidence of acidosis with pH 7.155, hypercapnia with PCO2 62.8 and hypoxia with O2 sat 87%. Patient subsequently was orally intubated. Chest x-ray confirmed placement of endotracheal tube. Patient admitted to ICU for further management. CONSULTANTS: implementation coordinator Dr. Zaidi pulmonary/critical care Dr. Hightower ID specialist Dr. Hicks GI specialist Dr. Sierra ice cream chef Dr. Ellison [facility] COURSE: Patient admitted to ICU. Patient started on IV fluids and empiric antibiotics as per ID specialist recommendation. Ventilator support and pulmonary toilet provided. Patient was followed-up with ABG and chest x-ray. Ventilator settings titrated based on ABG results. Meticulous pulmonary toilet provided. Initial blood culture revealed Staph warneri. Urine culture revealed E. coli ESBL and Pseudomonas. Sputum culture revealed Pseudomonas aeruginosa. Repeated blood cultures on 11/21 and 11/23 were negative. Venous duplex bilateral lower extremity was negative. CT chest noted bilateral pleural effusion. Echocardiogram revealed preserved ejection fraction of 55 to 60% with moderate pulmonary hypertension. No vegetation was seen. Patient was initially on heparin drip for anticoagulation for prevention of thromboembolic CVA due to atrial fibrillation . Beta-julio was given for rate control. Aspirin , beta-julio and nitroglycerin continued. Patient noted to have mildly elevated troponin x3. Troponin trended down to normal. Minimally elevated troponin was likely due to acute renal failure as per implementation coordinator. Patient started on weaning protocol , but did not tolerated it. On 11/25 patient self extubated himself and required reintubation by emergency room physician. Renal parameters and electrolytes were closely monitored. Electrolytes corrected as needed. Renal ultrasound revealed chronic renal disease. Nephrotoxins were avoided. Professor Of Literature followed. Creatinine was trending down from 6.7 to 5.5 prior to expiration. Patient noted to have drop in hemoglobin resulting in significant anemia. heparin drip was stopped. Stool for occult blood was positive. Anemia work-up was consistent with anemia of chronic disease. Patient undergone upper endoscopy with biopsy on 11/28 which found active upper GI bleeding , most probably in the cardia of the stomach , covered by the blood clot. G-tube was removed. Patient started on Protonix drip. Hemoglobin and hematocrit were closely monitored with goal to keep hemoglobin above 7. Patient undergone another upper endoscopy on 11/29 which found a blood clot sitting below the GE junction covering the cardia of the stomach. At least 2 ulcers were seen in the cardia the stomach. Patient found to have gastritis, status post biopsy. NG tube was placed. Protonic drip continued. Patient initially was kept n.p.o. Hemoglobin and hematocrit were closely monitored with goal to keep hemoglobin 7. While in the hospital patient undergone transfusion total of 5 units of packed red blood cells. Patient started on Reglan to clean up the stomach. Biopsy of the stomach revealed mild chronic oxyntic gastritis without activity, no evidence of interstitial metaplasia, no evidence of Helicobacter organisms. Hemoglobin and hematocrit stabilized. Patient slowly started on feeding via NG tube. Strict aspiration precaution maintained. Protonix drip switch to IV Protonix. Patient was off aspirin Carafate provided through the NG tube. Patient was unable to be weaned from ventilator and continued to be orally intubated. Chest ultrasound revealed small right pleural effusion , no need for thoracentesis. On 12/02 CODE BLUE was called since patient lost pulses and was hypotensive. According to respiratory therapist patient was very hard to bag . Code was conducted as per ACLS protocol . Noted difficulty passing suction catheter through the endotracheal tube , and subsequently emergency room physician removed old ET tube and intubated patient with a new endotracheal tube. Chest x-ray revealed large left sided pneumothorax . Chest tube was placed ,which reinflated the lung. Chest x-ray post chest tube showed resolution of left large left pneumothorax Patient condition was not improving. Patient was unable to be weaned from the ventilator. Chest x-ray showed developing interstitial and airspace disease , involving throughout the left lung , most probably representing extension pulmonary edema. Persistent right lung interstitial congestion. On 12/06 family meeting was arranged. Two patient's sister presented health directives from [place] , on which he stated that he did not want to be kept on artificial life support. Family agreed with a terminal extubation, morphine drip and comfort care. Code status was changed to DNR/DNI on 12/06. Patient was terminally extubated on 12 06 at 1615. Supplemental oxygen provided and titrated to keep pulse oximetry above 92%. Patient started on morphine drip . Comfort care provided. Patient condition was deteriorating and he was pronounced on 12/08 at 23:25. Cause of : cardiopulmonary arrest FINAL DIAGNOSES: Status post cardiopulmonary arrest 12/02 Large left-sided pneumothorax , status post chest tube placement Sepsis with Staph warneri bacteremia Acute hypoxemic hypercapnic respiratory failure requiring intubation Pneumonia with Pseudomonas aeruginosa UTI with E. coli ESBL and Pseudomonas Acute on chronic renal failure Acute toxic metabolic encephalopathy Atrial fibrillation with rapid ventricular response Upper GI bleeding Permanent versus paroxysmal episodes of atrial fibrillation Obstructive uropathy Elevated troponin, likely due to renal failure CHF Anemia of chronic kidney disease Moderate pulmonary hypertension Hypertension BPH Chronic hepatitis C History of latent TB Comfort care Olga Tobin NP Dec 11, 2019 10:08
== END 2019-12-09 23:25 | disposition expired | DRG 871 ==
LOC: EMR 02:51 → ICU 03:17 → 4E 12-08 19:25
PROC: 5A1935Z Respiratory Ventilation, Less than 24 Consecutive Hours (ICD-10-PCS; principal; 2019-11-21)
PROC: 0BH17EZ Insertion of Endotracheal Airway into Trachea, Via Natural or Artificial Opening (ICD-10-PCS; principal; 2019-11-21)
PROC: B548ZZA Ultrasonography of Superior Vena Cava, Guidance (ICD-10-PCS; 2019-11-28)
PROC: 02HV33Z Insertion of Infusion Device into Superior Vena Cava, Percutaneous Approach (ICD-10-PCS; 2019-11-28)
PROC: 0DJ08ZZ Inspection of Upper Intestinal Tract, Via Natural or Artificial Opening Endoscopic (ICD-10-PCS; 2019-11-29)
PROC: 0DD78ZX Extraction of Stomach, Pylorus, Via Natural or Artificial Opening Endoscopic, Diagnostic (ICD-10-PCS; 2019-11-30)
PROC: 0W9B30Z Drainage of Left Pleural Cavity with Drainage Device, Percutaneous Approach (ICD-10-PCS; 2019-12-03)
DX: A41.9 Sepsis, unspecified organism (principal); J96.02 Acute respiratory failure with hypercapnia; J96.01 Acute respiratory failure with hypoxia; J18.9 Pneumonia, unspecified organism; K25.0 Acute gastric ulcer with hemorrhage; G92 Toxic encephalopathy; N17.9 Acute kidney failure, unspecified; N39.0 Urinary tract infection, site not specified; I13.0 Hypertensive heart and chronic kidney disease with heart failure and stage 1 through stage 4 chronic kidney disease, or unspecified chronic kidney disease; I50.30 Unspecified diastolic (congestive) heart failure; J93.9 Pneumothorax, unspecified; N40.0 Benign prostatic hyperplasia without lower urinary tract symptoms; G30.9 Alzheimer's disease, unspecified; F02.80 Dementia in other diseases classified elsewhere, unspecified severity, without behavioral disturbance, psychotic disturbance, mood disturbance, and anxiety; I48.0 Paroxysmal atrial fibrillation; N18.9 Chronic kidney disease, unspecified; D63.1 Anemia in chronic kidney disease; K73.9 Chronic hepatitis, unspecified; I27.20 Pulmonary hypertension, unspecified; E87.5 Hyperkalemia; I95.9 Hypotension, unspecified; Z51.5 Encounter for palliative care; K29.70 Gastritis, unspecified, without bleeding
CPT/HCPCS: 31500; 36415; 36569; 36600; 71045; 71250; 74018; 76604; 76770; 76937; 80048; 80053; 80061; 80069; 80076; 80150; 80202; 81001; 81050; 82270; 82550; 82575; 82607; 82728; 82746; 82803; 82977; 83036; 83540; 83550; 83605; 83690; 83735; 83880; 84100; 84156; 84300; 84443; 84484; 84550; 85007; 85025; 85610; 85730; 86140; 86850; 86900; 86901; 86920; 87040; 87070; 87081; 87086; 87181; 87205; 89050; 93005; 93306; 93970; 94002; 94003; 94150; 99291; J0171; J2765; J7620